=== PATIENT | male | born 1935 | race Caucasian/White ===

== ENCOUNTER 2016-06-30 11:20 | Inpatient (IN) | payer MEDICARE, BC ==
[2016-06-30] MEDS ORDERED: ALBUTEROL NEBULIZED 2.5 MG/3 ML INHALATION STA (12:54)
[2016-06-30] MEDS ORDERED: methylPREDNISolone SOD SUCCI 125 MG/2 ML VIAL IV STA (12:54)
--- NOTE | 2016-06-30 13:08 | ED ---
General Adult HPI - General Chief complaint: Shortness of Breath Stated complaint: COPD, MADONNA, SENT BY DR FRANKEL Time Seen by Provider: 06/30/16 12:20 Source: patient, RN notes reviewed Mode of arrival: wheelchair Limitations: no limitations - History of Present Illness Initial comments: This is an 81-year-old male who presents to the emergency department complaining of difficulty breathing getting worse over the last few days. 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 Patient denies any fever chills or cough. Patient states he does have some chest pain only when he takes a deep breath. Patient denies any swelling of legs patient denies any calf tenderness. Patient denies abdominal pain patient denies nausea vomiting or diarrhea. Patient denies headache patient denies numbness weakness. Patient denies any lightheadedness dizziness or near syncopal episode. Patient notes that he's got a wears oxygen 24 hours a day as opposed to just at night recently. - Related Data Home Medications Medication Instructions Recorded Confirmed Aspirin EC [Ecotrin Low Dose] 81 mg PO DAILY 06/30/16 06/30/16 Atorvastatin [Lipitor] 20 mg PO HS 06/30/16 06/30/16 Donepezil [Aricept] 10 mg PO HS 06/30/16 06/30/16 Doxycycline Hyclate 100 mg PO BID 06/30/16 06/30/16 Gabapentin 600 mg PO BID@0900,1600 06/30/16 06/30/16 Gabapentin 800 mg PO HS 06/30/16 06/30/16 HYDROcodone/APAP 10-325MG [[place] 1 tab PO Q6H PRN 06/30/16 06/30/16 10-325] Isosorbide Mononitrate ER [Imdur] 60 mg PO HS 06/30/16 06/30/16 LORazepam [Ativan] 0.5 mg PO BID PRN 06/30/16 06/30/16 Levothyroxine Sodium [Synthroid] 175 mcg PO DAILY 06/30/16 06/30/16 Omeprazole 20 mg PO BID 06/30/16 06/30/16 Ondansetron Odt [Zofran Odt] 4 mg PO QID PRN 06/30/16 06/30/16 Tamsulosin HCl [Flomax] 0.4 mg PO HS 06/30/16 06/30/16 predniSONE See Taper PO DAILY 06/30/16 06/30/16 rOPINIRole HCL [Requip] 0.5 mg PO HS 06/30/16 06/30/16 traZODone HCL 150 mg PO HS 06/30/16 06/30/16 Allergies Allergy/AdvReac Type Severity Reaction Status Date / Time iodine Allergy Itching Verified 06/30/16 11:50 Penicillins Allergy Rash/Hives Verified 06/30/16 11:50 Review of Systems ROS Statement: Those systems with pertinent positive or pertinent negative responses have been documented in the HPI. ROS Other: All systems not noted in ROS Statement are negative. Past Medical History Past Medical History: COPD, Hyperlipidemia, Hypertension, Thyroid Disorder Additional Past Medical History / Comment(s): pain History of Any Multi-Drug Resistant Organisms: None Reported Past Surgical History: Orthopedic Surgery Additional Past Surgical History / Comment(s): fingers, feet Past Psychological History: No Psychological Hx Reported Smoking Status: Former smoker Past Alcohol Use History: None Reported Past Drug Use History: None Reported General Exam - General Exam Comments Initial Comments: GENERAL: Patient is well-developed and well-nourished. Patient is nontoxic and well- hydrated and is in moderate distress. ENT: Neck is soft and supple. No significant lymphadenopathy is noted. Oropharynx is clear. Moist mucous membranes. Neck has full range of motion without eliciting any pain. EYES: The sclera were anicteric and conjunctiva were pink and moist. Extraocular movements were intact and pupils were equal round and reactive to light. Eyelids were unremarkable. PULMONARY: Unlabored respirations. Good breath sounds bilaterally. No audible rales rhonchi or wheezing was noted. CARDIOVASCULAR: There is a regular rate and rhythm without any murmurs gallops or rubs. ABDOMEN: Soft and nontender with normal bowel sounds. No palpable organomegaly was noted. There is no palpable pulsatile mass. SKIN: Skin is clear with no lesions or rashes and otherwise unremarkable. NEUROLOGIC: Patient is alert and oriented x3. Cranial nerves II through XII are grossly intact. Motor and sensory are also intact. Normal speech, volume and content. Symmetrical smile. MUSCULOSKELETAL: Normal extremities with adequate strength and full range of motion. LYMPHATICS: No significant lymphadenopathy is noted PSYCHIATRIC: Normal psychiatric evaluation. Normal interpersonal interactions appears functionally intact in deals appropriately with others. No signs of depression. No signs of anxiety. Limitations: no limitations Course Vital Signs 06/30/16 06/30/16 06/30/16 11:44 12:52 13:09 Temperature 97.9 F Pulse Rate 75 57 L 69 Respiratory 18 24 Rate Blood Pressure 118/79 153/78 O2 Sat by Pulse 94 L 95 Oximetry 06/30/16 06/30/16 06/30/16 13:19 13:26 15:21 Temperature 98.3 F Pulse Rate 62 69 106 H Respiratory 18 15 Rate Blood Pressure 134/74 116/66 O2 Sat by Pulse 98 95 Oximetry Medical Decision Making - Medical Decision Making EKG shows sinus bradycardia with occasional PAC at 59 bpm AL interval is 154 QRS is 82 QT intervals 4:30 QTC is 425. Patient's EKG shows no ST segment elevation or depression or T wave abnormalities are noted. Patient received 3 consecutive breathing treatments as to the patient after he was improved but he still was wheezing quite a bit and he stated he was not back to his baseline I spoke with Dr. Figueredo admitted the patient wrote admitting orders I consult did Dr. Diaz - Lab Data Result diagrams: 06/30/16 13:18 06/30/16 13:18 Lab Results 06/30/16 06/30/16 06/30/16 Range/Units 13:18 13:18 13:18 WBC 7.4 (3.8-10.6) k/uL RBC 4.36 (4.30-5.90) m/uL Hgb 14.5 (13.0-17.5) gm/dL Hct 42.5 (39.0-53.0) % MCV 97.4 (80.0-100.0) fL MCH 33.3 (25.0-35.0) pg MCHC 34.2 (31.0-37.0) g/dL RDW 13.9 (11.5-15.5) % Plt Count 151 (150-450) k/uL Neutrophils % 50 % Lymphocytes % 37 % Monocytes % 6 % Eosinophils % 3 % Basophils % 1 % Neutrophils # 3.7 (1.3-7.7) k/uL Lymphocytes # 2.8 (1.0-4.8) k/uL Monocytes # 0.5 (0-1.0) k/uL Eosinophils # 0.2 (0-0.7) k/uL Basophils # 0.1 (0-0.2) k/uL PT (9.0-12.0) sec INR (<1.1) APTT (22.0-30.0) sec Sodium 141 (137-145) mmol/L Potassium 3.8 (3.5-5.1) mmol/L Chloride 104 (98-107) mmol/L Carbon Dioxide 26 (22-30) mmol/L Anion Gap 11 mmol/L BUN 18 (9-20) mg/dL Creatinine 1.13 (0.66-1.25) mg/dL Est GFR (MDRD) Af Amer >60 (>60 ml/min/1.73 sqM) Est GFR (MDRD) Non-Af >60 (>60 ml/min/1.73 sqM) Glucose 86 (74-99) mg/dL Calcium 9.5 (8.4-10.2) mg/dL Total Bilirubin 0.5 (0.2-1.3) mg/dL AST 18 (17-59) U/L ALT 34 (21-72) U/L Alkaline Phosphatase 60 (38-126) U/L Total Creatine Kinase 66 (55-170) U/L CK-MB (CK-2) 1.4 (0.0-2.4) ng/mL CK-MB (CK-2) Rel Index 2.1 Troponin I <0.012 (0.000-0.034) ng/mL Total Protein 6.3 (6.3-8.2) g/dL Albumin 3.7 (3.5-5.0) g/dL 06/30/16 Range/Units 13:18 WBC (3.8-10.6) k/uL RBC (4.30-5.90) m/uL Hgb (13.0-17.5) gm/dL Hct (39.0-53.0) % MCV (80.0-100.0) fL MCH (25.0-35.0) pg MCHC (31.0-37.0) g/dL RDW (11.5-15.5) % Plt Count (150-450) k/uL Neutrophils % % Lymphocytes % % Monocytes % % Eosinophils % % Basophils % % Neutrophils # (1.3-7.7) k/uL Lymphocytes # (1.0-4.8) k/uL Monocytes # (0-1.0) k/uL Eosinophils # (0-0.7) k/uL Basophils # (0-0.2) k/uL PT 10.0 (9.0-12.0) sec INR 1.0 (<1.1) APTT 25.7 (22.0-30.0) sec Sodium (137-145) mmol/L Potassium (3.5-5.1) mmol/L Chloride (98-107) mmol/L Carbon Dioxide (22-30) mmol/L Anion Gap mmol/L BUN (9-20) mg/dL Creatinine (0.66-1.25) mg/dL Est GFR (MDRD) Af Amer (>60 ml/min/1.73 sqM) Est GFR (MDRD) Non-Af (>60 ml/min/1.73 sqM) Glucose (74-99) mg/dL Calcium (8.4-10.2) mg/dL Total Bilirubin (0.2-1.3) mg/dL AST (17-59) U/L ALT (21-72) U/L Alkaline Phosphatase (38-126) U/L Total Creatine Kinase (55-170) U/L CK-MB (CK-2) (0.0-2.4) ng/mL CK-MB (CK-2) Rel Index Troponin I (0.000-0.034) ng/mL Total Protein (6.3-8.2) g/dL Albumin (3.5-5.0) g/dL Critical Care Time Critical Care Time: Yes Total Critical Care Time: 35 Disposition Clinical Impression: Acute exacerbation of chronic obstructive airways disease Disposition: ADMITTED IP TO THIS HOSP Referrals: Noble Elkins MD [Primary Care Provider] - 1-2 days Time of Disposition: 13:48
[2016-06-30 13:43] LABS: Basophils # (A) 0.1 k/uL (0-0.2); Basophils % (A) 1 %; CH 33.8; CHCM 34.8; Eosinophils # (A) 0.2 k/uL (0-0.7); Eosinophils % (A) 3 %; HCT 42.5 % (39.0-53.0); HDW 2.88; HGB 14.5 gm/dL (13.0-17.5); Luc # (Auto) 0.24; Luc % (Auto) 3; Lymphocytes # (A) 2.8 k/uL (1.0-4.8); Lymphocytes % (A) 37 %; MCH 33.3 pg (25.0-35.0); MCHC 34.2 g/dL (31.0-37.0); MCV 97.4 fL (80.0-100.0); Mean Platelet Volume 7.7; Monocytes # (A) 0.5 k/uL (0-1.0); Monocytes % (A) 6 %; Neutrophils # (A) 3.7 k/uL (1.3-7.7); Neutrophils % (A) 50 %; RBC 4.36 m/uL (4.30-5.90); RDW 13.9 % (11.5-15.5); WBC 7.4 k/uL (3.8-10.6); WBC (Perox) 7.36
[2016-06-30 13:49] LABS: ALT 34 U/L (21-72); AST 18 U/L (17-59); Alkaline Phosphatase 60 U/L (38-126); Anion Gap 11 mmol/L; Blood Urea Nitrogen 18 mg/dL (9-20); Calcium 9.5 mg/dL (8.4-10.2); Carbon Dioxide 26 mmol/L (22-30); Chloride 104 mmol/L (98-107); Glucose 86 mg/dL (74-99); Non-African American GFR(MDRD) >60 (>60 ml/min/1.73 sqM); Potassium 3.8 mmol/L (3.5-5.1); Sodium 141 mmol/L (137-145); Total Bilirubin 0.5 mg/dL (0.2-1.3); Total Protein 6.3 g/dL (6.3-8.2)
[2016-06-30 13:50] LABS: Partial Thromboplastin Time 25.7 sec (22.0-30.0)
[2016-06-30 14:08] LABS: Creatine Kinase 66 U/L (55-170)
[2016-06-30 14:18] LABS: Creatine Kinase MB 1.4 ng/mL (0.0-2.4); Troponin I <0.012 ng/mL (0.000-0.034)
--- NOTE | 2016-06-30 15:21 | XR ---
EXAMINATION TYPE: XR chest 2V DATE OF EXAM: 06/30/2016 3:13 PM COMPARISON: Prior chest x-ray 15 Aug 2009 HISTORY: Difficulty breathing, cough TECHNIQUE: Frontal and lateral views of the chest are obtained. FINDINGS: There is no focal air space opacity, pleural effusion, or pneumothorax seen. The cardiac silhouette size is within normal limits. There are overlying cardiac leads. Increased AP diameter o f the chest may be indicative of underlying COPD. The osseous structures are intact. IMPRESSION: No acute cardiopulmonary process.
[2016-06-30] MEDS ORDERED: IPRATROPIUM-ALBUTEROL 3 ML NEB INHALATION PRN (15:37)
[2016-06-30] MEDS ORDERED: KETOROLAC 30 MG/ML 1 ML VIAL IVP STA (15:43)
[2016-06-30] MEDS ORDERED: ONDANSETRON ODT 4 MG TAB PO PRN (17:10)
[2016-06-30 17:22] LABS: Glucose,Whole Blood 135 mg/dL (75-99)
[2016-06-30] MEDS: GABAPENTIN 300 MG CAP PO SCH (18:13)
[2016-06-30] MEDS: HYDROcodone/APAP 10-325MG 1 EACH TAB PO PRN (18:14)
[2016-06-30] MEDS: ASPIRIN 81 MG CHEW PO SCH (18:15)
[2016-06-30] MEDS: LORazepam 0.5 MG TAB PO PRN (18:15)
[2016-06-30] MEDS: INSULIN LISPRO (humaLOG) 300 UNIT/3 ML VIAL SQ SCH ×2 (18:16→21:46)
[2016-06-30] MEDS: methylPREDNISolone SOD SUCCI 125 MG/2 ML VIAL IV SCH ×2 (18:25→23:29)
[2016-06-30] MEDS: IPRATROPIUM-ALBUTEROL 3 ML NEB INHALATION SCH ×2 (20:54→23:58)
[2016-06-30 21:09] LABS: Glucose,Whole Blood 174 mg/dL (75-99)
[2016-06-30] MEDS: ATORVASTATIN 20 MG TAB PO SCH (21:44)
[2016-06-30] MEDS: ENOXAPARIN 40 MG/0.4 ML SYRINGE SQ SCH (21:44)
[2016-06-30] MEDS: DOXYCYCLINE 50 MG CAP PO SCH (21:45)
[2016-06-30] MEDS: GABAPENTIN 400 MG CAP PO SCH (21:45)
[2016-06-30] MEDS: DONEPEZIL 10 MG TAB PO SCH (21:45)
[2016-06-30] MEDS: guaiFENesin 600 MG TABLET.ER PO SCH (21:45)
[2016-06-30] MEDS: ISOSORBIDE MONONITRATE ER 60 MG TAB.ER.24H PO SCH (21:46)
[2016-06-30] MEDS: TAMSULOSIN 0.4 MG CAP.ER.24H PO SCH (21:47)
[2016-06-30] MEDS: traZODone HCL 50 MG TAB PO SCH (21:47)
[2016-06-30 22:04] LABS: Hemoglobin A1C 5.7 % (4.2-6.1)
[2016-07-01] MEDS: LORazepam 0.5 MG TAB PO PRN (02:05)
[2016-07-01] MEDS: IPRATROPIUM-ALBUTEROL 3 ML NEB INHALATION SCH ×5 (03:55→19:57)
[2016-07-01] MEDS: LEVOTHYROXINE 75 MCG TAB PO SCH (06:12)
[2016-07-01] MEDS: methylPREDNISolone SOD SUCCI 125 MG/2 ML VIAL IV SCH ×2 (06:12→12:17)
[2016-07-01] MEDS: LEVOTHYROXINE 100 MCG TAB PO SCH (06:13)
[2016-07-01 07:16] LABS: Glucose,Whole Blood 140 mg/dL (75-99)
[2016-07-01] MEDS: BUDESONIDE 1 MG/2 ML NEBU INHALATION SCH ×2 (08:05→19:57)
[2016-07-01] MEDS: INSULIN LISPRO (humaLOG) 300 UNIT/3 ML VIAL SQ SCH ×4 (08:11→21:19)
[2016-07-01] MEDS: PANTOPRAZOLE 40 MG TABLET PO SCH (08:12)
[2016-07-01] MEDS: guaiFENesin 600 MG TABLET.ER PO SCH (08:12)
[2016-07-01] MEDS: ASPIRIN 81 MG CHEW PO SCH (08:13)
[2016-07-01] MEDS: GABAPENTIN 300 MG CAP PO SCH ×2 (08:13→15:42)
[2016-07-01] MEDS: DOXYCYCLINE 50 MG CAP PO SCH ×2 (08:14→21:54)
--- NOTE | 2016-07-01 08:17 | HP ---
DATE OF ADMISSION: 06/30/2016 PRESENTING COMPLAINT: Short of breath, wheezing. HISTORY OF PRESENTING COMPLAINT: Very pleasant 81-year-old patient of Dr. Elkins and astronaut mission specialist Dr. Diaz. The patient has a long-standing history of COPD and other chronic stable conditions include GERD, hypertension, hyperlipidemia and hypothyroid. Patient is on home oxygen 2 liters and diverticulosis Patient has had a few admissions in the hospital. Patient presented with worsening short of breath, wheezing and chest tightness. Some cough. The patient has been on steroids off-and-on with fair appetite. Just feels tired, run down. REVIEW OF SYSTEMS: CONSTITUTIONAL: Tired. HEENT: None. RESPIRATORY: As above. CARDIOVASCULAR: None. GASTROINTESTINAL: None. GENITOURINARY: None. MUSCULOSKELETAL: Some pain in the joints. Dermatological: None. HEMATOLOGICAL: None. LYMPHATIC: None. PSYCHIATRY: Forgetful. NEUROLOGICAL: None. PAST MEDICAL HISTORY: COPD, GERD, hyperlipidemia, hypertension, benign prostatic hypertrophy, rheumatoid arthritis, hypothyroid, right eye injury with loss of vision for 30 years and then with lens replacement, the patient could see better, shingles 4 to 5 years ago, home oxygen 2 liters, migraines, diverticulosis. PAST SURGICAL HISTORY: Cardiac cath, orthopedic surgery, right eye lens implant. Colonoscopy with polypectomy, bilateral foot surgery, bilateral rotator cuff repair. SOCIAL HISTORY: Lives with his daughter, uses a walker when up, does drive also, patient smoked for about 10 years; stopped in 1962. Alcohol occasionally. Family history of cirrhosis. HOME MEDICATIONS: 1. Aspirin 81 mg a day. 2. Trazodone 150 mg p.o. q.h.s. 3. Requip 0.5 mg q.h.s. 4. Prednisone taper. 5. Flomax 0.4 mg q.h.s. 6. Zofran p.r.n. 7. Omeprazole 20 mg p.o. b.i.d. 8. Synthroid 175 mcg p.o. daily. 9. Ativan 0.5 mg p.o. b.i.d. p.r.n. 10. Imdur ER 50 mg p.o. q.h.s. 11. [place] 10 1 tablets p.o. q.6 p.r.n. 12. Neurontin 800 mg q.h.s. 600 mg p.o. b.i.d. 13. Doxycycline 100 mg p.o. b.i.d. 14. Aricept 10 mg p.o. q.h.s. 15. Lipitor 20 mg p.o. q.h.s. ALLERGIES TO IODINE AND PENICILLIN. On examination, temperature on presentation: Temperature 97.9, pulse 75, respiration 18, blood pressure 108/79, pulse ox 94% on room air. GENERAL APPEARANCE: Well built, BMI of 32.4, lying in bed, tired -appearing. EYES: Pupils equal. Conjunctivae normal. HEENT: External appearance of nose and ears normal. Oral cavity normal. NECK: JVD not raised. Mass not palpable. RESPIRATORY: Effort increased. LUNGS: Diminished breath sounds. Prolonged expiration and expiratory crackles and wheezing. CARDIOVASCULAR: First and second sounds normal. No edema. ABDOMEN: Soft, nontender. Liver and spleen not palpable. LYMPHATICS: No lymph nodes palpable in the neck and axilla. PSYCHIATRY: Alert and oriented x3. Mood and affect normal. NEUROLOGICAL: Pupils equal. Cranial nerves grossly intact. Power and sensation grossly intact. INVESTIGATIONS: White count 7.4, hemoglobin 14.5, potassium 3.8. EKG: Sinus rhythm. Chest x-ray reviewed by me shows some elevation of the right diaphragm. No obvious infiltrates. ASSESSMENT: 1. Acute severe chronic obstructive pulmonary disease exacerbation. 2. Gastroesophageal reflux disease. 3. Hyperlipidemia. 4. Essential hypertension. 5. Benign prostatic hypertrophy. 6. Chronic rheumatoid arthritis. 7. Hypothyroidism. 8. Chronic hypoxic respiratory failure secondary on 2 L oxygen at home. 9. Chronic diverticulosis. 10. Alzheimer's dementia, late onset type. 11. Chronic restless leg syndrome. PLAN: Patient is put on Solu-Medrol, nebulized bronchodilators every 4 hours. We will add some Mucinex for the patient to expectorate and also add nebulized and humidify the oxygen. Dr. Diaz will be consulted. Care was discussed with the patient. Questions were answered. Copy to Dr. Elkins.
[2016-07-01] MEDS: ENOXAPARIN 40 MG/0.4 ML SYRINGE SQ SCH (08:58)
[2016-07-01 12:15] LABS: Glucose,Whole Blood 178 mg/dL (75-99)
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
[2016-07-01] MEDS: LORazepam 0.5 MG TAB PO SCH ×2 (15:56→21:24)
[2016-07-01 17:04] LABS: Glucose,Whole Blood 125 mg/dL (75-99)
[2016-07-01] MEDS: methylPREDNISolone SOD SUCCI 40 MG/ML 1 ML VIAL IV SCH ×2 (19:01→23:33)
[2016-07-01 21:06] LABS: Glucose,Whole Blood 153 mg/dL (75-99)
[2016-07-01] MEDS: DONEPEZIL 10 MG TAB PO SCH (21:54)
[2016-07-01] MEDS: GABAPENTIN 400 MG CAP PO SCH (21:54)
[2016-07-01] MEDS: ATORVASTATIN 20 MG TAB PO SCH (21:54)
[2016-07-01] MEDS: traZODone HCL 50 MG TAB PO SCH (21:55)
[2016-07-01] MEDS: ISOSORBIDE MONONITRATE ER 60 MG TAB.ER.24H PO SCH (21:55)
[2016-07-01] MEDS: TAMSULOSIN 0.4 MG CAP.ER.24H PO SCH (21:55)
--- NOTE | 2016-07-01 22:56 | PN ---
DATE OF SERVICE: 07/01/2016 PRESENTING COMPLAINT: Shortness of breath and wheezing. INTERVAL HISTORY: This patient with advanced chronic obstructive pulmonary disease presented yet again with exacerbation, some tracheobronchitis. Patient had a bit of coughing bout, short of breath. Not able to expectorate much. Did tolerate some diet. Sitting on the bed. Tired. Review of systems done for constitutional, cardiovascular, GI, pulmonary; relevant findings as above. Current medications include nebulized bronchodilators, steroids, Vibramycin. On examination, temperature 99.1, pulse 54, respirations 18, blood pressure 122/90, pulse ox 92% on 2 liters. GENERAL APPEARANCE: Sitting up in bed. Tired -appearing. Eyes pupils equal. Conjunctivae normal. NECK: JVD not raised. Mass not palpable. Respiratory effort increased. Lungs decreased breath sounds, prolonged expiration and wheezing. CARDIOVASCULAR: First and second sounds normal. No edema. ABDOMEN: Soft, nontender. Liver and spleen not palpable. PSYCHIATRY: Alert and oriented x3 motor normal. INVESTIGATIONS: Accu-Cheks are noted. ASSESSMENT: 1. Acute advancing chronic obstructive pulmonary disease exacerbation from acute tracheobronchitis. 2. Gastroesophageal reflux disease. 3. Hyperlipidemia. 4. Essential hypertension. 5. Benign prostatic hypertrophy. 6. Chronic rheumatoid arthritis. 7. Hypothyroidism. 8. Chronic hypoxic respiratory failure secondary to 2 L oxygen at home. 9. Chronic diverticulosis. 10. Alzheimer's dementia, late onset type. 11. Chronic restless leg syndrome. 12. Acute severe chronic obstructive pulmonary disease exacerbation, slow to respond. PLAN: Care was discussed with the patient. We will stop the Mucinex as the patient is pretty dried up otherwise. Continue current medication and treatment plan. Follow with pulmonary.
[2016-07-02] MEDS: HYDROcodone/APAP 10-325MG 1 EACH TAB PO PRN (00:10)
[2016-07-02] MEDS: IPRATROPIUM-ALBUTEROL 3 ML NEB INHALATION SCH ×7 (00:44→23:47)
[2016-07-02] MEDS: LEVOTHYROXINE 75 MCG TAB PO SCH (06:32)
[2016-07-02] MEDS: LEVOTHYROXINE 100 MCG TAB PO SCH (06:32)
[2016-07-02 07:34] LABS: Glucose,Whole Blood 144 mg/dL (75-99)
[2016-07-02] MEDS: BUDESONIDE 1 MG/2 ML NEBU INHALATION SCH ×2 (08:16→19:50)
[2016-07-02] MEDS: methylPREDNISolone SOD SUCCI 40 MG/ML 1 ML VIAL IV SCH ×3 (09:13→23:46)
[2016-07-02] MEDS: ASPIRIN 81 MG CHEW PO SCH (09:14)
[2016-07-02] MEDS: ENOXAPARIN 40 MG/0.4 ML SYRINGE SQ SCH (09:14)
[2016-07-02] MEDS: PANTOPRAZOLE 40 MG TABLET PO SCH (09:14)
[2016-07-02] MEDS: GABAPENTIN 300 MG CAP PO SCH ×2 (09:14→17:16)
[2016-07-02] MEDS: DOXYCYCLINE 50 MG CAP PO SCH ×2 (09:15→21:08)
[2016-07-02] MEDS: INSULIN LISPRO (humaLOG) 300 UNIT/3 ML VIAL SQ SCH ×4 (09:15→21:23)
[2016-07-02] MEDS: LORazepam 0.5 MG TAB PO SCH ×4 (09:15→21:09)
[2016-07-02] MEDS: LORATADINE-PSEUDOEPH 5-120 MG 1 EACH TAB.ER.12H PO SCH ×2 (10:31→21:09)
[2016-07-02 12:12] LABS: Glucose,Whole Blood 116 mg/dL (75-99)
--- NOTE | 2016-07-02 14:22 | P.PN ---
Subjective This is a very pleasant 81-year-old gentleman who follows with Dr. Elkins as his primary care physician. He has a history of hypertension and hypothyroidism hyperlipidemia. He also has a remote history of smoking. 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 Diaz in our office for the same. He states approximate 5 weeks ago he had a bad flu bug with significant vomiting and diarrhea. Since that time he has not felt back to his normal. He has been treated in the outpatient setting for COPD exacerbation without significant improvement. He was seen again yesterday in our office by Dr. Pepe who referred the patient to be admitted here for the same. He is seen today in consultation on the regular medical floor. He is awake and alert in no acute distress. He is dyspneic with minimal exertion. He has a loose nonproductive cough. No fever, positive night sweats. No further nausea vomiting or diarrhea. His chest x-ray does not reveal any acute pulmonary process. He's been afebrile. No leukocytosis. Maintaining good O2 saturations in the 90s on 2 L/m per nasal cannula. He's been hemodynamically stable. He is seen again today 07/02/2016 in follow-up on the regular medical floor. He is awake and alert in no acute distress. He states he is breathing easier today as compared to yesterday. He is maintaining good O2 saturations in the low 90s on 2 L/m per nasal cannula. His been afebrile. Objective - Vital Signs Vital signs: Vital Signs Temp 97.6 F 07/02/16 07:00 Pulse 84 07/02/16 11:34 Resp 18 07/02/16 07:00 BP 112/68 07/02/16 07:00 Pulse Ox 93 L 07/02/16 07:00 Intake & Output 07/01/16 07/02/16 07/02/16 18:59 06:59 18:59 Intake Total 1200 Output Total 350 Balance -350 1200 Weight 96.615 kg Intake: Oral 1200 Output: Urine 350 Other: Voiding Method Urinal Toilet # Voids 1 1 3 - Exam GENERAL EXAM: Obese. Alert, comfortable in no apparent distress. HEAD: Normocephalic. EYES: Normal reaction of pupils, equal size. NOSE: Clear with pink turbinates. THROAT: No erythema or exudates. NECK: No masses, no JVD. CHEST: No chest wall deformity. LUNGS: Equal air entry with bilateral end expiratory wheeze, few scattered rhonchi, diminished. CVS: S1 and S2 normal with no audible murmurs, regular rhythm. ABDOMEN: No hepatosplenomegaly, normal bowel sounds, no guarding or rigidity. SPINE: No scoliosis or deformity SKIN: No rashes CENTRAL NERVOUS SYSTEM: No focal deficits, tone is normal in all 4 extremities. Extremities: There is no significant peripheral edema. No clubbing, no cyanosis. Peripheral pulses are intac - Labs CBC & Chem 7: 06/30/16 13:18 06/30/16 13:18 Labs: Abnormal Lab Results - Last 24 Hours (Table) 07/01/16 07/01/16 07/02/16 Range/Units 17:00 21:00 07:16 POC Glucose (mg/dL) 125 H 153 H 144 H (75-99) mg/dL 07/02/16 Range/Units 12:10 POC Glucose (mg/dL) 116 H (75-99) mg/dL Assessment and Plan Plan: Impression: #1 Acute exacerbation of severe oxygen dependent chronic obstructive pulmonary disease, complicated by tracheobronchitis. #2 Hypertension. #3 Hyperlipidemia. #4 Hypothyroidism. #5 Rheumatoid arthritis. #6 Benign prostatic hypertrophy. #6 History of shingles. Plan: The patient was seen and evaluated by Dr. Diaz. No need for bronchoscopy with BAL at this point. He is improving daily. His chest x-ray revealed no acute pulmonary process. We'll continue with his current pulmonary medications. We will increase his activity as tolerated. We'll continue to follow.
[2016-07-02 17:12] LABS: Glucose,Whole Blood 131 mg/dL (75-99)
[2016-07-02] MEDS: GABAPENTIN 400 MG CAP PO SCH (21:08)
[2016-07-02] MEDS: ATORVASTATIN 20 MG TAB PO SCH (21:08)
[2016-07-02] MEDS: DONEPEZIL 10 MG TAB PO SCH (21:08)
[2016-07-02] MEDS: ISOSORBIDE MONONITRATE ER 60 MG TAB.ER.24H PO SCH (21:09)
[2016-07-02] MEDS: traZODone HCL 50 MG TAB PO SCH (21:10)
[2016-07-02] MEDS: TAMSULOSIN 0.4 MG CAP.ER.24H PO SCH (21:10)
[2016-07-02 21:32] LABS: Glucose,Whole Blood 151 mg/dL (75-99)
[2016-07-03] MEDS: IPRATROPIUM-ALBUTEROL 3 ML NEB INHALATION SCH ×6 (04:07→23:23)
[2016-07-03] MEDS: LEVOTHYROXINE 75 MCG TAB PO SCH (06:07)
[2016-07-03] MEDS: LEVOTHYROXINE 100 MCG TAB PO SCH (06:07)
[2016-07-03 07:18] LABS: Glucose,Whole Blood 153 mg/dL (75-99)
[2016-07-03] MEDS: BUDESONIDE 1 MG/2 ML NEBU INHALATION SCH ×2 (07:18→19:14)
[2016-07-03] MEDS: HYDROcodone/APAP 10-325MG 1 EACH TAB PO PRN ×2 (07:21→21:41)
[2016-07-03] MEDS: INSULIN LISPRO (humaLOG) 300 UNIT/3 ML VIAL SQ SCH ×4 (07:22→20:56)
[2016-07-03] MEDS: PANTOPRAZOLE 40 MG TABLET PO SCH (07:22)
[2016-07-03] MEDS: methylPREDNISolone SOD SUCCI 40 MG/ML 1 ML VIAL IV SCH ×2 (07:22→15:14)
[2016-07-03] MEDS: ASPIRIN 81 MG CHEW PO SCH (07:23)
[2016-07-03] MEDS: DOXYCYCLINE 50 MG CAP PO SCH ×2 (07:23→20:52)
[2016-07-03] MEDS: GABAPENTIN 300 MG CAP PO SCH ×2 (07:23→15:14)
[2016-07-03] MEDS: ENOXAPARIN 40 MG/0.4 ML SYRINGE SQ SCH (07:23)
[2016-07-03] MEDS: LORATADINE-PSEUDOEPH 5-120 MG 1 EACH TAB.ER.12H PO SCH ×2 (07:24→20:52)
[2016-07-03] MEDS: LORazepam 0.5 MG TAB PO SCH ×4 (07:25→21:41)
--- NOTE | 2016-07-03 08:33 | PN ---
DATE OF SERVICE: 07/02/2016 PRESENTING COMPLAINT: Short of breath, wheezing. INTERVAL HISTORY: This is a patient admitted with advanced COPD exacerbation and some tracheobronchitis. Coughing is better after he stopped the Mucinex. Patient really stuffy in the nose. Tired. Less wheezing. Review of systems done for constitutional, cardiovascular, GI, pulmonary; relevant findings as above. Current medications show IV Solu-Medrol, nebulized bronchodilators. On examination, temperature 97.6, pulse 86, respiration 18, blood pressure 112/68, pulse ox 93% on room air. GENERAL APPEARANCE: Sitting up, tired appearing. HEENT: Conjunctivae normal. NECK: JVD not raised. RESPIRATORY: Decreased breath sounds. Prolonged expiration and wheezing. CARDIOVASCULAR: First and second sounds normal. No edema. ABDOMEN: Soft, nontender. Liver and spleen not palpable. PSYCHIATRY: Alert and oriented x3. Mood and affect anxious appearing. INVESTIGATIONS: Accu-Cheks are noted ASSESSMENT: 1. Acute advanced chronic obstructive pulmonary disease exacerbation, primary acute tracheobronchitis, slow to respond. 2. Gastroesophageal reflux disease. 3. Hyperlipidemia. 4. Essential hypertension. 5. Benign prostatic hypertrophy. 6. Chronic rheumatoid arthritis. 7. Hypothyroidism. 8. Chronic hypoxic respiratory failure on 2 liters oxygen at home from underlying chronic obstructive pulmonary disease. 9. Chronic diverticulosis. 10. Alzheimer's dementia, late onset type. 11. Chronic restless leg syndrome. PLAN: Continue the patient IV steroids, nebulized bronchodilators. Will add Claritin D 1 twice a day. Care was discussed with patient.
[2016-07-03 11:43] LABS: Glucose,Whole Blood 129 mg/dL (75-99)
--- NOTE | 2016-07-03 12:25 | P.PN ---
Subjective This is a very pleasant 81-year-old gentleman who follows with Dr. Elkins as his primary care physician. He has a history of hypertension and hypothyroidism hyperlipidemia. He also has a remote history of smoking. 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 Diaz in our office for the same. He states approximate 5 weeks ago he had a bad flu bug with significant vomiting and diarrhea. Since that time he has not felt back to his normal. He has been treated in the outpatient setting for COPD exacerbation without significant improvement. He was seen again yesterday in our office by Dr. Pepe who referred the patient to be admitted here for the same. He is seen today in consultation on the regular medical floor. He is awake and alert in no acute distress. He is dyspneic with minimal exertion. He has a loose nonproductive cough. No fever, positive night sweats. No further nausea vomiting or diarrhea. His chest x-ray does not reveal any acute pulmonary process. He's been afebrile. No leukocytosis. Maintaining good O2 saturations in the 90s on 2 L/m per nasal cannula. He's been hemodynamically stable. He is seen again today 07/02/2016 in follow-up on the regular medical floor. He is awake and alert in no acute distress. He states he is breathing easier today as compared to yesterday. He is maintaining good O2 saturations in the low 90s on 2 L/m per nasal cannula. His been afebrile. The patient is seen again today 07/03/2016 in follow-up. He is awake and alert in no acute distress. He does have ongoing issues with dyspnea on minimal exertion. He has a loose nonproductive cough. Still feelings of unable to clear and expectorate his sputum. he continues to maintain good O2 saturations in the mid 90s on 2 L/m per nasal cannula. Objective - Vital Signs Vital signs: Vital Signs Temp 97.0 F L 07/03/16 07:00 Pulse 88 07/03/16 11:22 Resp 18 07/03/16 07:00 BP 108/77 07/03/16 07:00 Pulse Ox 94 L 07/03/16 07:21 Intake & Output 07/02/16 07/03/16 07/03/16 18:59 06:59 18:59 Intake Total 1200 300 Balance 1200 300 Intake: Oral 1200 300 Other: Voiding Method Toilet # Voids 3 1 - Exam GENERAL EXAM: Obese. Alert, comfortable in no apparent distress. HEAD: Normocephalic. EYES: Normal reaction of pupils, equal size. NOSE: Clear with pink turbinates. THROAT: No erythema or exudates. NECK: No masses, no JVD. CHEST: No chest wall deformity. LUNGS: Equal air entry with bilateral end expiratory wheeze, few scattered rhonchi, diminished. CVS: S1 and S2 normal with no audible murmurs, regular rhythm. ABDOMEN: No hepatosplenomegaly, normal bowel sounds, no guarding or rigidity. SPINE: No scoliosis or deformity SKIN: No rashes CENTRAL NERVOUS SYSTEM: No focal deficits, tone is normal in all 4 extremities. Extremities: There is no significant peripheral edema. No clubbing, no cyanosis. Peripheral pulses are intac - Labs CBC & Chem 7: 06/30/16 13:18 06/30/16 13:18 Labs: Abnormal Lab Results - Last 24 Hours (Table) 07/02/16 07/02/16 07/03/16 Range/Units 17:08 21:19 07:16 POC Glucose (mg/dL) 131 H 151 H 153 H (75-99) mg/dL 07/03/16 Range/Units 11:41 POC Glucose (mg/dL) 129 H (75-99) mg/dL Assessment and Plan Plan: Impression: #1 Acute exacerbation of severe oxygen dependent chronic obstructive pulmonary disease, complicated by tracheobronchitis. #2 Hypertension. #3 Hyperlipidemia. #4 Hypothyroidism. #5 Rheumatoid arthritis. #6 Benign prostatic hypertrophy. #6 History of shingles. Plan: The patient was seen and evaluated by Dr. Diaz. No need for bronchoscopy with BAL at this point. His chest x-ray revealed no acute pulmonary process. We'll continue with his current pulmonary medications. We will add Mucinex twice a day. We will increase his activity as tolerated. We'll continue to follow.
[2016-07-03 16:52] LABS: Glucose,Whole Blood 153 mg/dL (75-99)
--- NOTE | 2016-07-03 20:22 | PN ---
DATE OF SERVICE: 07/03/2016 Presenting complaint: Short of breath. INTERVAL HISTORY: This patient was admitted to the hospital with advanced COPD exacerbation and tracheobronchitis. Breathing somewhat better. Nasal stuffiness improved after starting Claritin-D. Did tolerate his diet. Review of systems done for constitutional, GI, pulmonary; relevant findings as above. Current medications are reviewed that include Solu-Medrol 40 q.8. On examination, temperature 98, pulse 72, respiratory rate 18, blood pressure 130/98, pulse ox 94% on 2 liters. GENERAL APPEARANCE: Sitting up, more comfortable. EYES: Pupils equal. Conjunctivae normal. NECK: JVD not raised. Mass not palpable. RESPIRATORY: Effort increased. LUNGS: Diminished breath sounds. Prolonged expiration. CARDIOVASCULAR: First and second sounds normal. No edema. ABDOMEN: Soft, nontender. Liver and spleen not palpable. PSYCHIATRY: Alert and oriented x3. Mood and affect less anxious. INVESTIGATIONS:
[2016-07-03] MEDS: ATORVASTATIN 20 MG TAB PO SCH (20:50)
[2016-07-03] MEDS: DOCUSATE 100 MG CAP PO SCH (20:50)
[2016-07-03] MEDS: GABAPENTIN 400 MG CAP PO SCH (20:51)
[2016-07-03] MEDS: traZODone HCL 50 MG TAB PO SCH (20:51)
[2016-07-03] MEDS: guaiFENesin 600 MG TABLET.ER PO SCH (20:52)
[2016-07-03] MEDS: DONEPEZIL 10 MG TAB PO SCH (20:52)
[2016-07-03] MEDS: TAMSULOSIN 0.4 MG CAP.ER.24H PO SCH (20:52)
[2016-07-03] MEDS: ISOSORBIDE MONONITRATE ER 60 MG TAB.ER.24H PO SCH (20:52)
[2016-07-03 21:07] LABS: Glucose,Whole Blood 108 mg/dL (75-99)
[2016-07-04] MEDS: IPRATROPIUM-ALBUTEROL 3 ML NEB INHALATION SCH ×5 (03:36→20:44)
[2016-07-04] MEDS: LEVOTHYROXINE 100 MCG TAB PO SCH (06:11)
[2016-07-04] MEDS: LEVOTHYROXINE 75 MCG TAB PO SCH (06:11)
[2016-07-04 07:29] LABS: Glucose,Whole Blood 99 mg/dL (75-99)
[2016-07-04] MEDS: INSULIN LISPRO (humaLOG) 300 UNIT/3 ML VIAL SQ SCH ×4 (07:33→21:22)
[2016-07-04] MEDS: LORazepam 0.5 MG TAB PO SCH ×4 (07:37→21:29)
[2016-07-04] MEDS: PANTOPRAZOLE 40 MG TABLET PO SCH (07:37)
[2016-07-04] MEDS: LORATADINE-PSEUDOEPH 5-120 MG 1 EACH TAB.ER.12H PO SCH ×2 (07:37→21:22)
[2016-07-04] MEDS: GABAPENTIN 300 MG CAP PO SCH ×2 (07:37→17:03)
[2016-07-04] MEDS: HYDROcodone/APAP 10-325MG 1 EACH TAB PO PRN (07:37)
[2016-07-04] MEDS: methylPREDNISolone SOD SUCCI 40 MG/ML 1 ML VIAL IV SCH ×2 (07:37→21:20)
[2016-07-04] MEDS: guaiFENesin 600 MG TABLET.ER PO SCH ×2 (07:37→21:22)
[2016-07-04] MEDS: ENOXAPARIN 40 MG/0.4 ML SYRINGE SQ SCH (07:37)
[2016-07-04] MEDS: DOXYCYCLINE 50 MG CAP PO SCH ×2 (07:37→21:21)
[2016-07-04] MEDS: ASPIRIN 81 MG CHEW PO SCH (07:37)
[2016-07-04] MEDS: BUDESONIDE 1 MG/2 ML NEBU INHALATION SCH ×2 (08:17→20:44)
[2016-07-04] MEDS ORDERED: ACETYLCYSTEINE 800 MG/4 ML VIAL INHALATION SCH (12:00)
[2016-07-04 12:01] LABS: Glucose,Whole Blood 114 mg/dL (75-99)
--- NOTE | 2016-07-04 13:06 | P.PN ---
Subjective Principal diagnosis: Acute exacerbation of COPD and tracheobronchitis This is a very pleasant 81-year-old gentleman who follows with Dr. Elkins as his primary care physician. He has a history of hypertension and hypothyroidism hyperlipidemia. He also has a remote history of smoking. 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 Diaz in our office for the same. He states approximate 5 weeks ago he had a bad flu bug with significant vomiting and diarrhea. Since that time he has not felt back to his normal. He has been treated in the outpatient setting for COPD exacerbation without significant improvement. He was seen again yesterday in our office by Dr. Pepe who referred the patient to be admitted here for the same. He is seen today in consultation on the regular medical floor. He is awake and alert in no acute distress. He is dyspneic with minimal exertion. He has a loose nonproductive cough. No fever, positive night sweats. No further nausea vomiting or diarrhea. His chest x-ray does not reveal any acute pulmonary process. He's been afebrile. No leukocytosis. Maintaining good O2 saturations in the 90s on 2 L/m per nasal cannula. He's been hemodynamically stable. He is seen again today 07/02/2016 in follow-up on the regular medical floor. He is awake and alert in no acute distress. He states he is breathing easier today as compared to yesterday. He is maintaining good O2 saturations in the low 90s on 2 L/m per nasal cannula. His been afebrile. The patient is seen again today 07/03/2016 in follow-up. He is awake and alert in no acute distress. He does have ongoing issues with dyspnea on minimal exertion. He has a loose nonproductive cough. Still feelings of unable to clear and expectorate his sputum. he continues to maintain good O2 saturations in the mid 90s on 2 L/m per nasal cannula. Reevaluated today on 07/04/2016, continues to have shortness of breath with any activity. Unable to clear his sputum, hence I recommended adding Mucinex and Mucomyst today. Hopefully this will help him expectorate easily, and we can work on getting the patient discharge home probably in the next 2 days. Otherwise he may have to be bronchoscoped. Objective - Vital Signs Vital signs: Vital Signs Temp 97.0 F L 07/04/16 07:00 Pulse 88 07/04/16 08:35 Resp 16 07/04/16 07:00 BP 118/81 07/04/16 07:00 Pulse Ox 95 07/04/16 07:00 Intake & Output 07/03/16 07/04/16 07/04/16 18:59 06:59 18:59 Intake Total 300 Balance 300 Intake: Oral 300 Other: Voiding Method Toilet Toilet Toilet # Voids 2 1 - Exam GENERAL EXAM: Obese. Alert, comfortable in no apparent distress. HEAD: Normocephalic. EYES: Normal reaction of pupils, equal size. NOSE: Clear with pink turbinates. THROAT: No erythema or exudates. NECK: No masses, no JVD. CHEST: No chest wall deformity. LUNGS: Equal air entry with bilateral end expiratory wheeze, few scattered rhonchi, diminished. CVS: S1 and S2 normal with no audible murmurs, regular rhythm. ABDOMEN: No hepatosplenomegaly, normal bowel sounds, no guarding or rigidity. SPINE: No scoliosis or deformity SKIN: No rashes CENTRAL NERVOUS SYSTEM: No focal deficits, tone is normal in all 4 extremities. Extremities: There is no significant peripheral edema. No clubbing, no cyanosis. Peripheral pulses are intac - Labs CBC & Chem 7: 06/30/16 13:18 06/30/16 13:18 Labs: Abnormal Lab Results - Last 24 Hours (Table) 07/03/16 07/03/16 07/04/16 Range/Units 16:50 20:56 11:53 POC Glucose (mg/dL) 153 H 108 H 114 H (75-99) mg/dL Assessment and Plan Plan: #1 Acute exacerbation of severe oxygen dependent chronic obstructive pulmonary disease, complicated by tracheobronchitis. #2 Hypertension. #3 Hyperlipidemia. #4 Hypothyroidism. #5 Rheumatoid arthritis. #6 Benign prostatic hypertrophy. #6 History of shingles. Plan: Continue present course of bronchodilators, antibiotics, admitted to be seen next and Mucomyst to his treatment regimen, if not improved may have to seriously consider bronchoscopy in this patient in the next couple of days. Time with Patient: Less than 30
[2016-07-04] MEDS: ACETYLCYSTEINE 800 MG/4 ML VIAL INHALATION SCH ×2 (15:48→20:43)
[2016-07-04 17:06] LABS: Glucose,Whole Blood 119 mg/dL (75-99)
[2016-07-04 20:52] LABS: Glucose,Whole Blood 114 mg/dL (75-99)
[2016-07-04] MEDS: ATORVASTATIN 20 MG TAB PO SCH (21:20)
[2016-07-04] MEDS: DOCUSATE 100 MG CAP PO SCH (21:20)
[2016-07-04] MEDS: DONEPEZIL 10 MG TAB PO SCH (21:21)
[2016-07-04] MEDS: GABAPENTIN 400 MG CAP PO SCH (21:21)
[2016-07-04] MEDS: ISOSORBIDE MONONITRATE ER 60 MG TAB.ER.24H PO SCH (21:22)
[2016-07-04] MEDS: traZODone HCL 50 MG TAB PO SCH (21:23)
[2016-07-04] MEDS: TAMSULOSIN 0.4 MG CAP.ER.24H PO SCH (21:23)
[2016-07-05] MEDS: HYDROcodone/APAP 10-325MG 1 EACH TAB PO PRN (02:49)
[2016-07-05] MEDS: IPRATROPIUM-ALBUTEROL 3 ML NEB INHALATION SCH ×4 (03:33→10:42)
[2016-07-05] MEDS: LEVOTHYROXINE 100 MCG TAB PO SCH (06:38)
[2016-07-05] MEDS: LEVOTHYROXINE 75 MCG TAB PO SCH (06:38)
[2016-07-05] MEDS: BUDESONIDE 1 MG/2 ML NEBU INHALATION SCH (07:19)
[2016-07-05] MEDS: ACETYLCYSTEINE 800 MG/4 ML VIAL INHALATION SCH ×2 (07:19→10:42)
[2016-07-05] MEDS: INSULIN LISPRO (humaLOG) 300 UNIT/3 ML VIAL SQ SCH ×2 (08:25→12:28)
[2016-07-05 09:12] VITALS: BP 107/70; RESP 18; TEMP 97.6
[2016-07-05] MEDS: GABAPENTIN 300 MG CAP PO SCH (09:28)
[2016-07-05] MEDS: LORazepam 0.5 MG TAB PO SCH ×2 (09:28→12:31)
[2016-07-05] MEDS: PANTOPRAZOLE 40 MG TABLET PO SCH (09:28)
[2016-07-05] MEDS: DOXYCYCLINE 50 MG CAP PO SCH (09:28)
[2016-07-05] MEDS: ASPIRIN 81 MG CHEW PO SCH (09:28)
--- NOTE | 2016-07-05 09:28 | PN ---
DATE OF SERVICE: 07/04/2016 PRESENTING COMPLAINT: Short of breath. INTERVAL HISTORY: This is a patient with advanced COPD exacerbation and tracheobronchitis. Nasal stuffiness actually has cleared, decreased wheezing, no rhonchi in the chest. Doing much better, has been actually up and about, tolerating his diet. Review of systems done for constitutional, cardiovascular, GI, pulmonary; relevant findings as above. Current medications are reviewed that include IV Solu-Medrol q.12. On examination, temperature 97.1, pulse 96, respiration 16, blood pressure 120/73, pulse ox 94% on room air. GENERAL APPEARANCE: Sitting at the edge of the bed, comfortable. EYES: Pupils equal. Conjunctivae normal. NECK: JVD not raised. Mass not palpable. Respiratory effort increased. LUNGS: Improved air entry. Decreased minimal wheezing. CARDIOVASCULAR: First and second sounds normal. No edema. ABDOMEN: Soft, nontender. Liver and spleen not palpable. PSYCHIATRY: Alert and oriented x3. Mood and affect normal. INVESTIGATIONS: Accu-Cheks are noted. ASSESSMENT: 1. Acute advanced chronic obstructive pulmonary disease exacerbation with acute tracheobronchitis, much improved. 2. Gastroesophageal reflux disease. 3. Hyperlipidemia. 4. Essential hypertension. 5. Benign prostatic hypertrophy. 6. Chronic rheumatoid arthritis. 7. Hypothyroidism. 8. Chronic hypoxic respiratory failure on 2 L oxygen at home from underlying chronic obstructive pulmonary disease. 9. Chronic diverticulosis. 10. Alzheimer's dementia, late onset type. 11. Chronic restless leg syndrome. PLAN: I had long talk with the patient. I think patient doing really well compared to what he had come in. I do not think bronchoscopy at this time with lavage will be of any benefit as the patient is greatly improved. Not having any crackles. No sputum production, not congested. I think he will probably benefit from going home. Will of course run this by the pulmonary team.
[2016-07-05] MEDS: ENOXAPARIN 40 MG/0.4 ML SYRINGE SQ SCH (09:29)
[2016-07-05] MEDS: methylPREDNISolone SOD SUCCI 40 MG/ML 1 ML VIAL IV SCH (09:29)
[2016-07-05] MEDS: LORATADINE-PSEUDOEPH 5-120 MG 1 EACH TAB.ER.12H PO SCH (09:29)
[2016-07-05] MEDS: guaiFENesin 600 MG TABLET.ER PO SCH (09:29)
--- NOTE | 2016-07-05 09:32 | PN ---
ADDENDUM: DATE OF SERVICE: 07/03/2016 INVESTIGATIONS: Accu-Cheks are noted. ASSESSMENT: 1. Acute advanced chronic obstructive pulmonary disease exacerbation with acute tracheobronchitis, improving. 2. Gastroesophageal reflux disease. 3. Hyperlipidemia. 4. Essential hypertension. 5. Benign prostatic hypertrophy. 6. Chronic rheumatoid arthritis. 7. Hypothyroidism. 8. Chronic hypoxic respiratory failure on 2 L oxygen at home from underlying chronic obstructive pulmonary disease. 9. Chronic diverticulosis. 10. Alzheimer's dementia, late onset type. 11. Chronic restless leg syndrome. PLAN: Overall, patient doing better. Continue with IV steroids. Will talk with Pulmonary. Care was discussed with the patient.
[2016-07-05] MEDS ORDERED: DOCUSATE 100 MG CAP PO SCH (09:45)
--- NOTE | 2016-07-05 10:18 | P.PN ---
Subjective Progress note dated 07/05/2016 This is an 81-year-old male with a history of underlying COPD. The patient is doing better. Hopes to be able to be discharged. He's feeling better. Still feels like he's got phlegm that he cannot cough up. He looks stable. No respiratory distress no audible wheezing. Sitting the family members. Sees Dr. Diaz in the office. His primary doctor Det[facility]. Anyway again the patient looks well likely be able to be discharged in next day or so. Objective - Vital Signs Vital signs: Vital Signs Temp 97.6 F 07/05/16 07:00 Pulse 67 07/05/16 07:00 Resp 18 07/05/16 07:00 BP 107/70 07/05/16 07:00 Pulse Ox 94 L 07/05/16 07:00 Intake & Output 07/04/16 07/05/16 07/05/16 18:59 06:59 18:59 Other: Voiding Method Toilet # Voids 3 2 - Exam No acute distress, oriented 3. HEENT examination is grossly unremarkable. Mucous membranes are moist. No oral lesions. Neck supple. Full range of motion. No adenopathy or thyromegaly. Cardiovascular examination reveals regular rhythm rate. S1-S2 normal. No S3- S4 or murmur. Lungs reveal mostly clear breath sounds. A few scattered rhonchi. No wheezes or crackles. Breath sounds are significantly diminished. Abdomen soft bowel sounds are heard. No masses. Extremities are intact. No edema. - Labs CBC & Chem 7: 06/30/16 13:18 06/30/16 13:18 Labs: Abnormal Lab Results - Last 24 Hours (Table) 07/04/16 07/04/16 07/04/16 Range/Units 11:53 17:04 20:50 POC Glucose (mg/dL) 114 H 119 H 114 H (75-99) mg/dL Assessment and Plan (1) Acute exacerbation of chronic obstructive airways disease Status: Acute Plan: Plan dated 07/05/2016 The patient is doing better. Likely be able to be discharged soon. The patient feels well. Seems to want to go home. In addition to see severe COPD, he has a history of hypertension hyperlipidemia hypothyroidism and rheumatoid arthritis. Also has a history of BPH. The patient appears not to need bronchoscopy. Likely discharge soon. Time with Patient: Less than 30
[2016-07-05 10:56] VITALS: PULSE 96
[2016-07-05 12:21] LABS: Glucose,Whole Blood 134 mg/dL (75-99)
[2016-07-05] MEDS ORDERED: SYMBICORT 160-4.5 MCG INHALER INHALATION SCH (20:00)
--- NOTE | 2016-07-07 07:40 | DS ---
DATE OF ADMISSION: 06/30/2016 DATE OF DISCHARGE: 07/05/2016 FINAL DIAGNOSES: 1. Acute advanced chronic obstructive pulmonary disease exacerbation with acute tracheobronchitis, present at admission. 2. Gastroesophageal reflux disease. 3. Hyperlipidemia. 4. Essential hypertension. 5. Benign prostatic hypertrophy. 6. Chronic rheumatoid arthritis. 7. Hypothyroidism. 8. Chronic hypoxic respiratory failure on 2 L of oxygen at home from underlying chronic obstructive pulmonary disease. 9. Chronic diverticulosis. 10. Alzheimer's dementia, late-onset type. 11. Chronic restless leg syndrome. CONSULTATION: Dr. Jones from Pulmonary. HOSPITAL COURSE: This patient presented with COPD exacerbation and tracheobronchitis, doing much better after treatment with antibiotics, steroids. On the time of discharge, the patient is feeling much better, going back to his baseline. On exam, lungs decreased breath sounds. CARDIOVASCULAR: First and second sounds normal. PSYCH: Alert and oriented x3. Mood and affect normal. DISCHARGE MEDICATIONS: 1. Aspirin 81 mg a day. 2. Lipitor 20 mg q.h.s. 3. Aricept 10 mg q.h.s. 4. Gabapentin 600 mg b.i.d. 5. Gabapentin 800 mg p.o. q.h.s. 6. Winder 10 one tablet q.6 p.r.n. 7. Imdur ER 60 mg q.h.s. 8. Ativan 0.5 mg p.o. b.i.d. p.r.n. 9. Synthroid 135 mcg p.o. daily. 10. Omeprazole 20 mg b.i.d. 11. Zofran 4 mg p.o. q.i.d. p.r.n. 12. Flomax 0.4 mg p.o. q.h.s. 13. Requip 0.5 mg p.o. q.h.s. 14. Trazodone 150 mg p.o. q.h.s. 15. Symbicort 160.4.5 two puffs b.i.d. 16. DuoNeb q.i.d. 17. Claritin D p.o. q.12. 18. Senokot-S 1 tablet p.o. daily. 19. Prednisone taper. Follow up with Dr. Diaz on 07/13/2016; follow up with Dr. Elkins on 07/09/2016. DC planning more than 35 minutes.
== END 2016-07-05 15:43 | disposition home or self-care (01) | DRG 191 ==
LOC: EC 11:20 → 4MS4W 15:32
PROVIDERS: ADMIT Hospitalist; ATTEND Hospitalist
DX: J44.0 Chronic obstructive pulmonary disease with (acute) lower respiratory infection (principal); J96.11 Chronic respiratory failure with hypoxia; Z99.81 Dependence on supplemental oxygen; G30.9 Alzheimer's disease, unspecified; F02.80 Dementia in other diseases classified elsewhere, unspecified severity, without behavioral disturbance, psychotic disturbance, mood disturbance, and anxiety; J20.9 Acute bronchitis, unspecified; J44.1 Chronic obstructive pulmonary disease with (acute) exacerbation; E03.9 Hypothyroidism, unspecified; E78.5 Hyperlipidemia, unspecified; G25.81 Restless legs syndrome; H54.7 Unspecified visual loss; I10 Essential (primary) hypertension; K21.9 Gastro-esophageal reflux disease without esophagitis; K57.90 Diverticulosis of intestine, part unspecified, without perforation or abscess without bleeding; M06.9 Rheumatoid arthritis, unspecified; N40.0 Benign prostatic hyperplasia without lower urinary tract symptoms; Z79.82 Long term (current) use of aspirin; Z79.899 Other long term (current) drug therapy; Z80.1 Family history of malignant neoplasm of trachea, bronchus and lung; Z86.19 Personal history of other infectious and parasitic diseases; Z87.891 Personal history of nicotine dependence; Z91.041 Radiographic dye allergy status; Z88.0 Allergy status to penicillin
CPT/HCPCS: 36415; 71020; 80053; 82550; 82553; 83036; 84484; 85025; 85610; 85730; 93005; 94640; 94644; 94760; 96374; 96375; 99214; 99291

== ENCOUNTER 2016-12-20 15:36 | Inpatient (IN) | payer MEDICARE, BC ==
[2016-12-20] MEDS ORDERED: ASPIRIN 81 MG PO STA ×2 (16:01→18:42)
[2016-12-20] MEDS ORDERED: SODIUM CHLORIDE 0.9% 1,000 ML IV STA (16:01)
[2016-12-20] MEDS ORDERED: NITROGLYCERIN OINT 1 INCH/GM PACKET TOPICAL STA (16:01)
[2016-12-20] MEDS ORDERED: LORazepam 2 MG/ML SYRINGE IV STA (16:03)
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
[2016-12-20 16:20] LABS: Basophils % (A) 0 %; CH 34.4; CHCM 36.2; Eosinophils # (A) 0.1 k/uL (0-0.7); Eosinophils % (A) 1 %; HCT 48.6 % (39.0-53.0); HDW 2.87; HGB 16.9 gm/dL (13.0-17.5); Luc # (Auto) 0.07; Luc % (Auto) 1; Lymphocytes # (A) 1.4 k/uL (1.0-4.8); Lymphocytes % (A) 21 %; MCH 33.3 pg (25.0-35.0); MCHC 34.9 g/dL (31.0-37.0); MCV 95.4 fL (80.0-100.0); Mean Platelet Volume 8.2; Monocytes # (A) 0.3 k/uL (0-1.0); Monocytes % (A) 5 %; Neutrophils # (A) 4.8 k/uL (1.3-7.7); Neutrophils % (A) 72 %; RBC 5.09 m/uL (4.30-5.90); RDW 13.5 % (11.5-15.5); WBC 6.7 k/uL (3.8-10.6); WBC (Perox) 6.45
[2016-12-20 16:29] LABS: ALT 21 U/L (21-72); AST 21 U/L (17-59); Alkaline Phosphatase 70 U/L (38-126); Amylase 37 U/L (30-110); Anion Gap 13 mmol/L; Blood Urea Nitrogen 15 mg/dL (9-20); Calcium 9.6 mg/dL (8.4-10.2); Carbon Dioxide 21 mmol/L (22-30); Chloride 105 mmol/L (98-107); Glucose 121 mg/dL (74-99); Magnesium 1.8 mg/dL (1.6-2.3); Non-African American GFR(MDRD) >60 (>60 ml/min/1.73 sqM); Potassium 4.8 mmol/L (3.5-5.1); Sodium 139 mmol/L (137-145); Total Bilirubin 1.4 mg/dL (0.2-1.3); Total Protein 6.8 g/dL (6.3-8.2)
[2016-12-20 16:31] LABS: INR 1.1 (<1.2); Partial Thromboplastin Time 22.1 sec (22.0-30.0); Prothrombin Time 10.6 sec (9.0-12.0)
[2016-12-20 16:48] LABS: Creatine Kinase 50 U/L (55-170)
[2016-12-20 17:01] LABS: Troponin I <0.012 ng/mL (0.000-0.034)
--- NOTE | 2016-12-20 17:25 | CT ---
EXAMINATION TYPE: CT brain wo con DATE OF EXAM: 12/20/2016 COMPARISON: NONE HISTORY: Confusion. CT DLP: 1118 mGycm Automated exposure control for dose reduction was used. FINDINGS: There is ectatic basilar artery and distal left vertebral artery. There is no mass effect nor midline shift. There is cerebral cortical atrophy. There is no sign of intracranial hemorrhage. The calvariu m is intact. There is some mucosal thickening in the right posterior ethmoid sinus. IMPRESSION: ETHMOID SINUSITIS. CEREBRAL ATROPHY. VERTEBROBASILAR ECTASIA. NO ACUTE INTRACRANIAL ABNORMALITY.
--- NOTE | 2016-12-20 17:26 | XR ---
EXAMINATION TYPE: XR chest 2V DATE OF EXAM: 12/20/2016 COMPARISON: NONE HISTORY: Chest pain TECHNIQUE: Frontal and lateral views of the chest are obtained. FINDINGS: There is some patchy linear infiltrate and atelectasis at the left lung base. The other ronit ng levi are clear. Heart size is normal. There is no heart failure. Thoracic aorta is atheromatous. There are chest leads. IMPRESSION: There is new mild linear infiltrate and atelectasis at the left lung base compared to ol d exam. No heart failure.
[2016-12-20] MEDS ORDERED: NITROGLYCERIN SL TABS 0.4 MG TAB SUBLINGUAL PRN (18:42)
[2016-12-20] MEDS ORDERED: traZODone HCL 100 MG TAB PO PRN (18:46)
[2016-12-20] MEDS ORDERED: IPRATROPIUM-ALBUTEROL 3 ML NEB INHALATION PRN (18:46)
[2016-12-20] MEDS ORDERED: oxyCODONE-APAP 10-325MG 1 EACH TAB PO PRN (18:46)
[2016-12-20] MEDS ORDERED: LORazepam 0.5 MG TAB PO PRN (18:46)
[2016-12-20] MEDS ORDERED: NON-FORMULARY DRUG (Morphine Pain Pump 1 DOSE) INTRATHECA SCH (19:00)
[2016-12-20 20:46] VITALS: BMI 30.8
[2016-12-20] MEDS: PANTOPRAZOLE 40 MG TABLET PO SCH (22:01)
[2016-12-20] MEDS: GABAPENTIN 400 MG CAP PO SCH (22:01)
[2016-12-20] MEDS: LORazepam 0.5 MG TAB PO SCH (22:02)
[2016-12-20] MEDS: SENNOSIDES 8.6 MG TAB PO SCH (22:02)
[2016-12-20] MEDS: diphenhydrAMINE 25 MG CAP PO SCH (22:02)
[2016-12-20] MEDS: LEVOTHYROXINE 88 MCG TAB PO SCH (22:02)
[2016-12-20] MEDS: ATORVASTATIN 20 MG TAB PO SCH (22:03)
[2016-12-20] MEDS: FAMOTIDINE 20 MG TAB PO SCH (22:03)
[2016-12-20] MEDS: DONEPEZIL 10 MG TAB PO SCH (22:03)
[2016-12-20] MEDS ORDERED: ONDANSETRON 4 MG TAB PO PRN (22:16)
[2016-12-20] MEDS: TAMSULOSIN 0.4 MG CAP.ER.24H PO SCH (22:25)
[2016-12-20] MEDS: CLOTRIMAZOLE TROCHE 10 MG TROCHE MUCOUS MEM SCH (22:29)
[2016-12-20 22:55] LABS: Creatine Kinase 38 U/L (55-170)
[2016-12-20 23:09] LABS: Creatine Kinase MB 0.8 ng/mL (0.0-2.4); Troponin I <0.012 ng/mL (0.000-0.034)
[2016-12-21] MEDS: traZODone HCL 50 MG TAB PO PRN (01:43)
[2016-12-21 03:40] LABS: Creatine Kinase 35 U/L (55-170)
[2016-12-21 03:43] LABS: Cholesterol 111 mg/dL (<200); HDL Cholesterol 34 mg/dL (40-60)
[2016-12-21 03:54] LABS: Creatine Kinase MB 0.7 ng/mL (0.0-2.4); Troponin I <0.012 ng/mL (0.000-0.034)
[2016-12-21] MEDS: NITROGLYCERIN OINT 1 INCH/GM PACKET TOPICAL SCH ×2 (06:54→14:47)
[2016-12-21] MEDS: SYMBICORT 80-4.5 MCG INHALER INHALATION SCH ×2 (07:51→19:09)
[2016-12-21] MEDS ORDERED: ASPIRIN 325 MG TAB PO SCH (09:00)
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
--- NOTE | 2016-12-21 10:31 | ECHOF ---
Referral Reason: MEASUREMENTS -------- HEIGHT: 170.2 cm WEIGHT: 89.4 kg BP: 128/71 RVIDd: 3.0 cm (< 3.3) IVSd: 1.1 cm (0.6 - 1.1) LVIDd: 4.0 cm (3.9 - 5.3) LVPWd: 1.1 cm (0.6 - 1.1) IVSs: 1.5 cm LVIDs: 3.3 cm LVPWs: 1.3 cm LA Diam: 3.2 cm (2.7 - 3.8) Ao Diam: 3.6 cm (2.0 - 3.7) AV Cusp: 2.1 cm (1.5 - 2.6) LA Diam: 4.5 cm (2.7 - 3.8) MV EXCURSION: 17.961 mm (> 18.000) MV EF SLOPE: 71 mm/s (70 - 150) EPSS: 0.9 cm MV E Kishore: 0.65 m/s MV DecT: 175 ms MV A Kishore: 0.78 m/s MV E/A Ratio: 0.83 RAP: 5.00 mmHg RVSP: 16.58 mmHg FINDINGS -------- Sinus rhythm. This was a technically adequate study. The left ventricular size is normal. Left ventricular wall thickness is normal. Overall left ventricular systolic function is normal with, an EF between 55 - 60 %. The right ventricle is normal in size. The left atrial size is normal. The right atrial size is normal. The aortic valve is trileaflet, and appears structurally normal. No aortic stenosis or regurgitation. Mild mitral annular calcification present. Mild mitral regurgitation is present. Mild tricuspid regurgitation present. There is no evidence of pulmonary hypertension. The right ventricular systolic pressure, as measured by Doppler, is 16.58mmHg. There is no pulmonic regurgitation present. The aortic root size is normal. There is no pericardial effusion. CONCLUSIONS -------- 1. The left ventricular size is normal. 2. There is no pulmonic regurgitation present. 3. There is no pericardial effusion. 4. Left ventricular wall thickness is normal. 5. Overall left ventricular systolic function is normal with, an EF between 55 - 60 %. 6. The aortic valve is trileaflet, and appears structurally normal. No aortic stenosis or regurgitation. 7. Mild mitral annular calcification present. 8. Mild mitral regurgitation is present. 9. Mild tricuspid regurgitation present. 10. There is no evidence of pulmonary hypertension. 11. The right ventricular systolic pressure, as measured by Doppler, is 16.58mmHg. TIRE BUILDING SUPERVISOR: Elaina Paiz RDCS
--- NOTE | 2016-12-21 10:48 | P.CON ---
Consult Note - . Consult date: 12/21/16 Assessment/Plan:: Mr. Renee is an 81-year-old male admitted to [facility] with chest pain rule-out and complaints of increasing sedation, confusion, and weakness since placement of an intrathecal pain pump three months ago by Dr. Hilliard. Troponins are negative and patient is awaiting stress test and echo at this time. Patient is also taking rare Percocet and occasional Ativan and/or Xanax as dosed by patient 's daughter and gabapentin in addition, and the family is concerned because the patient is sleeping all the time. Interrogation of the patient's intrathecal pump demonstrates a morphine concentration of 25 mg/ml and a current dose of 1.2 mg/day. I attempted to decrease the daily dose of intrathecal morphine, but was unable to as 1.2 mg/ day is the minimum that the intrathecal pump can deliver at the current concentration of medication. I recommend that all prn benzodiazepines be avoided or at least minimized until the patient can return to Dr. Hilliard's office for a pump refill at a lower concentration of morphine in order to be able to decrease his dose. Case was discussed with the patient, patient's son and daughter, and with Dr. Hilliard. From pain management perspective, patient can be discharged once his cardiac workup is completed, and no additional opioid prescriptions are needed. Thank you for the consult. I spent approximately 55-60 minutes in the care of this patient in records review, discussion with family, and discussion with other providers.
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
[2016-12-21] MEDS: CLOTRIMAZOLE TROCHE 10 MG TROCHE MUCOUS MEM SCH ×3 (15:13→20:09)
[2016-12-21] MEDS: ENOXAPARIN 40 MG/0.4 ML SYRINGE SQ SCH (15:13)
[2016-12-21] MEDS: LEVOTHYROXINE 88 MCG TAB PO SCH (20:04)
[2016-12-21] MEDS: diphenhydrAMINE 25 MG CAP PO SCH (20:07)
[2016-12-21] MEDS: PANTOPRAZOLE 40 MG TABLET PO SCH (20:07)
[2016-12-21] MEDS: ATORVASTATIN 20 MG TAB PO SCH (20:07)
[2016-12-21] MEDS: GABAPENTIN 400 MG CAP PO SCH (20:08)
[2016-12-21] MEDS: DONEPEZIL 10 MG TAB PO SCH (20:08)
[2016-12-21] MEDS: LORazepam 0.5 MG TAB PO SCH (20:08)
[2016-12-21] MEDS: ISOSORBIDE MONONITRATE ER 60 MG TAB.ER.24H PO SCH (20:08)
[2016-12-21] MEDS: SENNOSIDES 8.6 MG TAB PO SCH (20:08)
[2016-12-21] MEDS: FAMOTIDINE 20 MG TAB PO SCH (20:08)
[2016-12-21] MEDS: TAMSULOSIN 0.4 MG CAP.ER.24H PO SCH (20:09)
--- NOTE | 2016-12-21 23:50 | HP ---
HISTORY AND PHYSICAL DATE OF ADMISSION: December 20, 2016. PRESENTING COMPLAINT: Chest pressure. HISTORY OF PRESENT COMPLAINT: This patient was seen by me yesterday on December 20, 2016 yesterday in the observation unit. The patient's chronic stable medical conditions include COPD, GERD, hypertension, BPH, rheumatoid arthritis home oxygen on 2 L, diverticulosis, restless leg syndrome and Alzheimer's dementia, patient presented to the ER with multitude of symptoms. The patient was having some pressure sensation across the chest. Slight shortness of breath. No perspiration. Present for a few hours. Also at the same time, patient is rather anxious, has a new pain pump. Not working the way it is supposed to be. Being followed by Dr. Hilliard. The patient is rather anxious. All these multiple symptoms precipitated his admission. The patient does have a walker. REVIEW OF SYSTEMS: Constitutional tired. HEENT: None. RESPIRATORY: As above. Cardiovascular as above. GASTROINTESTINAL: Heartburn. GENITOURINARY: None. MUSCULOSKELETAL: Pain in different joints. DERMATOLOGICAL: None. HEMATOLOGICAL: None. LYMPHATICS: None. PSYCHIATRIC: Forgetful. Neurological: Restless legs. PAST HISTORY: COPD, GERD, hypertension, hyperlipidemia, BPH, rheumatoid arthritis, hypothyroid, chronic hypoxic respiratory failure, diverticulosis, Alzheimer's, restless leg syndrome. PAST SURGICAL HISTORY: Cardiac catheterization, right eye lens implant, bilateral foot surgery, repair of left index finger, bilateral rotator cuff repair. SOCIAL HISTORY: The patient lives with his daughter. Uses a walker. Smoked a pack a day for 11 years. Stopped in 1962. Alcohol occasionally. FAMILY HISTORY: TB, tuberculosis. Liver cirrhosis. HOME MEDICATIONS: 1. Trazodone 150 mg p.o. q.h.s. p.r.n. 2. Requip 0.5 p.o. q.h.s. 3. Percocet 10 1 tab q.6h hours p.r.n. 4. Benadryl 25 mg p.o. q.h.s. 5. Flomax 0.4 mg p.o. q.h.s. 6. Senokot 8.6 mg p.o. q.h.s. 7. Zantac 300 mg p.o. q.h.s. 8. Omeprazole 40 mg p.o. q.h.s. 9. Morphine pain pump intrathecal. 10.Synthroid 125 mcg p.o. q.h.s. 11.Ativan 0.5 mg q.h.s. and p.r.n. 12.Imdur ER 60 mg q.h.s. 13.DuoNeb t.i.d. p.r.n. 14.Neurontin 800 mg q.h.s. 15.Breo Ellipta 100/25, 1 puff daily. 16.Aricept 10 mg q.h.s. 17.Mycelex push 10 mg t.i.d. 18.Lipitor 20 mg p.o. q.h.s. ALLERGIES: IV CONTRAST DYE AND PENICILLIN PHYSICAL EXAMINATION: On examination, temperature 97.1, pulse 91, respirations 18, blood pressure 113/73 pulse ox 98% on 2 L. GENERAL: BMI 38.9, well built, lying in bed, tired appearing. Eyes: The pupils equal. Conjunctivae normal. HEENT oral cavity normal. Neck JVD not raised. Mass not palpable. Respiratory effort: Lungs slightly decreased breath sounds. Cardiovascular first and second sounds normal. No edema. ABDOMEN: Soft, nontender. Liver and spleen not palpable. Pain pump in place. LYMPHATIC: No lymphs nodes palpable in the neck and axilla. Psychiatry: Alert and oriented times three. Mood and affect: Tired appearing. INVESTIGATIONS: White count 6.7, hemoglobin 16.9, potassium 4.8. BUN and creatinine is normal. Troponin negative. EKG nonspecific T-wave changes. ASSESSMENT: 1. Assessment anterior chest wall. Cause indeterminate. This could be psychosomatic. Patient was rather anxious. On initial presentation, worried about his pain issues. 2. Chronic obstructive pulmonary disease in an ex-smoker. 3. Gastroesophageal reflux disease. 4. Essential hypertension. 5. Hyperlipidemia. 6. Benign prostatic hypertrophy. 7. Chronic rheumatoid arthritis. 8. Hypothyroid. 9. Chronic hypoxic respiratory failure. 10.Diverticulosis. 11.Alzheimer's dementia late onset type. 12.Restless leg syndrome. 13.Gait dysfunction uses a walker. PLAN: Consultation with Pulmonary and Cardiology is done. Serial cardiac enzymes are in place. Also pain management, Dr. Li was consulted. Care was discussed with the patient. MMODL / IJN: [id number] /
[2016-12-22] MEDS ORDERED: AMINOPHYLLINE 500 MG/20 ML VIAL IV PRN (05:00)
[2016-12-22] MEDS: SYMBICORT 80-4.5 MCG INHALER INHALATION SCH ×2 (07:31→20:22)
[2016-12-22 07:44] VITALS: RESP 18
[2016-12-22] MEDS ORDERED: REGADENOSON 0.4 MG/5 ML SYRINGE IV ONE (09:00)
--- NOTE | 2016-12-22 09:28 | PN ---
PROGRESS NOTE DATE OF SERVICE: 12/21/16 PRESENTING COMPLAINT: Chest pressure. INTERVAL HISTORY: This patient with multiple medical problems, presented with chest pressure, feeling somewhat better this morning. The pain pump will be adjusted by Dr. Hilliard as an outpatient. The patient's friend is at the bedside. The patient is being scheduled for a stress test. REVIEW OF SYSTEMS: Review of systems done for constitutional, cardiovascular, GI, pulmonary, relevant findings as above. MEDICATIONS: Current medications reviewed. PHYSICAL EXAMINATION: Temperature 98.6, pulse 55, respiration 18, blood pressure 102/62, pulse ox 93% room air. General appearance: Lying in bed, comfortable. EYES: Pupils equal. Conjunctivae normal. Neck: JVD not raised. Mass not palpable. Respiratory effort lungs decreased breath sounds. Cardiovascular: First and second sounds normal. ABDOMEN: Soft, nontender. Psychiatry: Alert and oriented times three. Mood and affect slightly low. INVESTIGATIONS: Troponin times three negative. ASSESSMENT: 1. Anterior chest wall pain. Given his risk factors, cardiac cause is being ruled out via stress test. 2. Chronic obstructive pulmonary disease in an ex-smoker. 3. Gastroesophageal reflux disease. 4. Hypertension. 5. Hyperlipidemia. 6. Benign prostatic hypertrophy. 7. Chronic rheumatoid arthritis. 8. Hypothyroid. 9. Chronic hypoxic respiratory failure from chronic obstructive pulmonary disease. 10.Diverticulosis, colonic. 11.Restless leg syndrome. 12.Alzheimer's dementia late onset type. PLAN: Care was discussed with the patient. Due for stress test tomorrow. We will continue other medications. MMODL / IJN: [id number] /
[2016-12-22] MEDS ORDERED: SODIUM CHLORIDE 0.9% 1,000 ML IV SCH ×2 (10:15→22:45)
[2016-12-22] MEDS: ENOXAPARIN 40 MG/0.4 ML SYRINGE SQ SCH (10:59)
[2016-12-22] MEDS: CLOTRIMAZOLE TROCHE 10 MG TROCHE MUCOUS MEM SCH ×3 (11:00→22:00)
[2016-12-22] MEDS: ASPIRIN 81 MG PO SCH (11:00)
[2016-12-22] MEDS: SODIUM CHLORIDE 0.9% 1,000 ML IV SCH (11:23)
--- NOTE | 2016-12-22 13:43 | P.PN ---
Subjective This is an 81-year old male being seen for c/o chest pain. He was scheduled to undergo Lexiscan stress test today after his morphine dose was decreased and he was less lethargic. It appears the pump was unable to be decreased due to the concentration of the morphine. Blood pressure 86/70 with heart rate 54 prior to starting the stress test. He was also increasingly lethargic and weak. The test was cancelled at this time. He continues to c/o chest tightness intermittently. Denies shortness of breath, dizziness, palpitations or diaphoresis. Objective - Vital Signs Vital signs: Vital Signs Temp 98.8 F 12/22/16 11:34 Pulse 54 L 12/22/16 12:00 Resp 18 12/22/16 12:00 BP 91/57 12/22/16 11:34 Pulse Ox 94 L 12/22/16 11:34 Intake & Output 12/21/16 12/22/16 12/22/16 18:59 06:59 18:59 Intake Total 440 240 Balance 440 240 Weight 89.358 kg Intake: Oral 440 240 Other: Voiding Method Toilet Toilet Toilet # Voids 1 1 - Exam GENERAL: Well-appearing, well-nourished and in no acute distress. NECK: Supple without JVD or thyromegaly. LUNGS: Breath sounds clear to auscultation bilaterally. Respiration equal and unlabored. No wheezes, rales or rhonchi. HEART: Regular rate and rhythm without murmurs, rubs or gallops. S1 and S2 heard. EXTREMITIES: Normal range of motion, no edema. No clubbing or cyanosis. Peripheral pulses intact and strong. - Labs CBC & Chem 7: 12/20/16 15:55 12/20/16 15:55 Assessment and Plan Plan: ASSESSMENT 1. Chest pain, atypical 2. History of stable chronic CAD 3. Essential HTN 4. Dyslipidemia 5. Chronic COPD, stable 6. Chronic back pain with recent pain pump implantation PLAN Discontinue all oral narcotics and benzodiazapines as per pain management recommendations. We will hydrate the pt with 0.9% sodium chloride at 100cc/hr and we will attempt to repeat the Lexiscan in the morning. Echocardiogram done yesterday indicates her left ventricular function with ejection fraction 55-60%. Nurse Practitioner note has been reviewed, I agree with a documented findings and plan of care. Patient was seen and examined.
--- NOTE | 2016-12-22 15:20 | P.PN ---
Progress Note - Text DATE OF SERVICE: 12/22/2016 PRESENTING COMPLAINT: Chest pressure HISTORY OF PRESENT ILLNESS: 81-year-old male presents with chest pressure, occurred across the entire chest wall, some shortness of breath and present for a few hours. Has a pain pump which is followed by Dr. Hilliard. Pain pump require some adjustment as patient has been a bit lethargic, feels the pump is not working properly. INTERVAL HISTORY: 12/22/2016: Patient scheduled for stress test today and is nothing by mouth. No further episodes of chest pain overnight. Appears to be more alert today. Ambulatory with a cane and some assistance to and from the bathroom. Last BM prior to admission. REVIEW OF SYSTEMS: Done for constitutional ,cardiovascular, GI, pulmonary with relevant findings as above. CURRENT MEDICATIONS Benadryl, Aricept, Lovenox, famotidine, Neurontin, Imdur 60 mg by mouth at bedtime, Synthroid 176 g by mouth at bedtime, Requip 0.5 mg by mouth at bedtime , tamsulosin 0.4 mg by mouth at bedtime. PHYSICAL EXAM VITAL SIGNS: Temperature 97.7, pulse 52, respiratory rate 18, blood pressure 114/68, oxygen saturation 94% on room air. GENERAL APPEARANCE: Lying in bed, not in distress. EYES: Pupils equal. Conjunctiva normal. NECK: JVD not raised. Mass not palpable. RESPIRATORY: Respiratory effort normal. Lungs diminished to auscultation. CARDIOVASCULAR: First and second sounds normal. No edema. ABDOMEN: Soft. Liver and spleen not palpable. No tenderness. No mass palpable. PSYCHIATRY: Alert and oriented x3. Mood and affect tired appearing. INVESTIGATIONS: HDL 34 ASSESSMENT: -Atypical anterior chest wall chest pain, cause indeterminate. Could be psychosomatic, patient's anxious, -Chronic obstructive pulmonary disease in an ex-smoker. -Gastroesophageal reflux disease. -Essential hypertension. -Hyperlipidemia. -Benign prostatic hypertrophy. -Chronic rheumatoid arthritis. -Hypothyroidism -Chronic hypoxic respiratory failure. -Diverticulosis. -Alzheimer's dementia late onset type. -Rest leg syndrome. -Gait dysfunction uses walker. PLAN: Dr. Li from pain management came to see the patient unable to adjust the pain pump patient will need a follow-up with Dr. Hilliard for adjustments. Unable to complete stress test today due to hypotension, all oral narcotics and benzodiazepines of been discontinued, patient will be hydrated with 0.9 normal saline 100 mL an hour and we'll repeat Mariana scan in the morning. VEHICLE GLASS TECHNICIAN statement: Patient was seen and examined by nurse practitioner Risa Booker and all elements of the case discussed with attending Dr. Barajas
[2016-12-22] MEDS: ACETAMINOPHEN TAB 325 MG TAB PO PRN (15:38)
--- NOTE | 2016-12-22 17:19 | PN ---
PROGRESS NOTE DATE OF SERVICE: 12/22/16 ATTENDING NOTE: Patient seen and examined by me. I discussed the case with my nurse practitioner Ms. Booker. The patient was not able to complete the stress test. Blood pressure is running on the low side. PHYSICAL EXAMINATION: On exam lungs decreased breath sounds. Cardiovascular first and second sounds normal. Psych: Awake, answering questions. Troponins are negative. ASSESSMENT: Chest pain for repeat stress test tomorrow. Follow with cardiology. Care was discussed with the patient. SARA / ABUNDION: [id number] /
[2016-12-22] MEDS: DONEPEZIL 10 MG TAB PO SCH (21:46)
[2016-12-22] MEDS: ATORVASTATIN 20 MG TAB PO SCH (21:46)
[2016-12-22] MEDS: traZODone HCL 50 MG TAB PO PRN (21:46)
[2016-12-22] MEDS: ISOSORBIDE MONONITRATE ER 60 MG TAB.ER.24H PO SCH (21:46)
[2016-12-22] MEDS: PANTOPRAZOLE 40 MG TABLET PO SCH (21:46)
[2016-12-22] MEDS: GABAPENTIN 400 MG CAP PO SCH (21:46)
[2016-12-22] MEDS: diphenhydrAMINE 25 MG CAP PO SCH (21:46)
[2016-12-22] MEDS: FAMOTIDINE 20 MG TAB PO SCH (21:46)
[2016-12-22] MEDS: LEVOTHYROXINE 88 MCG TAB PO SCH (21:46)
[2016-12-22] MEDS: SENNOSIDES 8.6 MG TAB PO SCH (21:47)
[2016-12-22] MEDS: TAMSULOSIN 0.4 MG CAP.ER.24H PO SCH (21:47)
[2016-12-23] MEDS: ACETAMINOPHEN TAB 325 MG TAB PO PRN (02:14)
[2016-12-23] MEDS: SYMBICORT 80-4.5 MCG INHALER INHALATION SCH (07:17)
[2016-12-23] MEDS: SODIUM CHLORIDE 0.9% 1,000 ML IV SCH (08:32)
[2016-12-23] MEDS: ENOXAPARIN 40 MG/0.4 ML SYRINGE SQ SCH (08:47)
[2016-12-23] MEDS: CLOTRIMAZOLE TROCHE 10 MG TROCHE MUCOUS MEM SCH (08:47)
[2016-12-23] MEDS: ASPIRIN 81 MG PO SCH (08:47)
--- NOTE | 2016-12-23 09:50 | P.PN ---
Subjective This is an 81-year old male being seen for c/o chest pain. We will attempt Lexiscan stress test today after yesterday had to be cancelled due to lethargy and hypotension. Upon exam today he is seen sitting up in bed. He denies active chest pain, sob, dizziness, palpitations, nausea or vomiting. He is much more awake and alert this morning. BP 109-67, heart rate 64, he states he has been up and down to the bathroom a couple times overnight. We will proceed today with his test as scheduled. Objective - Vital Signs Vital signs: Vital Signs Temp 97.8 F 12/23/16 07:53 Pulse 64 12/23/16 07:53 Resp 18 12/23/16 07:53 BP 109/67 12/23/16 07:53 Pulse Ox 94 L 12/23/16 07:53 Intake & Output 12/22/16 12/23/16 12/23/16 18:59 06:59 18:59 Intake Total 1132 400 Output Total 1000 Balance 1132 -600 Weight 89.358 kg Intake: Oral 1132 400 Output: Urine 1000 Other: Voiding Method Toilet Toilet Toilet # Voids 3 - Exam GENERAL: Well-appearing, well-nourished and in no acute distress. NECK: Supple without JVD or thyromegaly. LUNGS: Breath sounds clear to auscultation bilaterally. Respiration equal and unlabored. No wheezes, rales or rhonchi. HEART: Regular rate and rhythm without murmurs, rubs or gallops. S1 and S2 heard. EXTREMITIES: Normal range of motion, no edema. No clubbing or cyanosis. Peripheral pulses intact and strong. - Labs CBC & Chem 7: 12/20/16 15:55 12/20/16 15:55 Assessment and Plan Plan: ASSESSMENT 1. Chest pain, atypical 2. History of stable chronic CAD 3. Essential HTN 4. Dyslipidemia 5. Chronic COPD, stable 6. Chronic back pain with recent pain pump implantation PLAN Proceed with Lexiscan stress test this morning as scheduled. If this is normal he is stable for discharge home from a cardiac standpoint. Nurse Practitioner note has been reviewed, I agree with a documented findings and plan of care. Patient was seen and examined.
--- NOTE | 2016-12-23 11:08 | NM ---
EXAMINATION TYPE: NM stress lexiscan cardiolite DATE OF EXAM: 12/23/2016 COMPARISON: NONE HISTORY: History of hypertension and hypercholesterolemia as well as prior tobacco use and prior hear t catheterization as well as history of prior TIA and COPD presents with chest pain TECHNIQUE: After the intravenous administration of 10.8 mCi Tc 99m Sestamibi - Cardiolite resting SP ECT images acquired 45 minutes post injection. The patient received 0.4mg Lexiscan, 25.5 mCi Tc 99m Sestamibi - Stress images obtained [address] injection FINDINGS: Review of stress and rest SPECT images demonstrates overall diminished radiotracer uptake involving t he inferior left ventricular wall at stress and rest images which old infarct cannot be excluded thching martinez I favor this is predominantly artifactual. No convincing scintigraphic evidence for reversible is chemia seen. Gated analysis shows normal wall motion however with an estimated left ventricular eject ion fraction of 73 %. IMPRESSION: No scintigraphic evidence for reversible ischemia.
--- NOTE | 2016-12-23 13:13 | EST ---
EXERCISE STRESS DATE OF SERVICE: 12/23/2016 AGE: 81 SEX: Male HT: 67" WT: 197 PROTOCOL: Lexiscan Cardiolite STAGE: DURATION OF EXERCISE: HEART RATE REST: 62 BLOOD PRESSURE REST: 104/62 MAXIMUM HEART RATE ACHIEVED: 84 MAXIMUM BLOOD PRESSURE: 117/60 85% MPHR: 118 100% MPHR: 139 METS: INDICATIONS: Chest pain. CLINICAL INFORMATION: Baseline EKG revealed a normal sinus rhythm without significant ST-T changes. With Lexiscan administration heart rate went up from 62 to 84 beats per minute. Blood pressure changed from 104/62 to 94/66, and then came back to baseline. The patient did not have any significant symptoms. EKG revealed minor nonspecific ST-T changes, which persisted making this an inconclusive Lexiscan stress test by EKG criteria. By EKG criteria, this is an inconclusive Lexiscan stress test because of minor resting EKG changes. Patient did not have any angina or arrhythmia. The nuclear scan results, which are more pertinent, will be reported by the radiologist. MMPHYLLIS / IJN: [id number] /
--- NOTE | 2016-12-23 13:47 | P.DS ---
Providers Date of admission: 12/23/16 08:21 Attending physician: Ralph Barajas Consults: 12/20/16 18:42 Consult Physician Urgent Consulting Provider: Jose Luis Li Consult Reason/Comments: pain managment Do you want consulting provider notified?: Yes Consult Physician Urgent Consulting Provider: Carlos Ashley Consult Reason/Comments: cp Do you want consulting provider notified?: Yes Primary care physician: [facility] Course: 81-year-old male presents with chest pressure, occurred across the entire chest wall, some shortness of breath and present for a few hours. Has a pain pump which is followed by Dr. Hilliard. Patient had chest pain, underwent stress test which was negative and patient is being discharged today to follow with the family care physician and neurology as an outpatient. PHYSICAL EXAMINATION: GENERAL: The patient is alert and oriented x3, not in any acute distress. Well developed, well nourished. HEENT: Pupils are round and equally reacting to light. EOMI. No scleral icterus. No conjunctival pallor. Normocephalic, atraumatic. No pharyngeal erythema. No thyromegaly. CARDIOVASCULAR: S1 and S2 present. No murmurs, rubs, or gallops. PULMONARY: Chest is clear to auscultation, no wheezing or crackles. ABDOMEN: Soft, nontender, nondistended, normoactive bowel sounds. No palpable organomegaly. MUSCULOSKELETAL: No joint swelling or deformity. EXTREMITIES: No cyanosis, clubbing, or pedal edema. NEUROLOGICAL: Gross neurological examination did not reveal any focal deficits. SKIN: No rashes. Atypical anterior chest wall chest pain, musculoskeletal and stresses is negative -Chronic obstructive pulmonary disease in an ex-smoker. Not in exacerbation -Gastroesophageal reflux disease. -Essential hypertension. -Hyperlipidemia. -Benign prostatic hypertrophy. -Chronic rheumatoid arthritis. -Hypothyroidism -Rest leg syndrome. -Gait dysfunction uses walker. Patient Condition at Discharge: Fair Plan - Discharge Summary New Discharge Prescriptions: No Action rOPINIRole HCL [Requip] 0.5 mg PO HS traZODone HCL 150 mg PO HS PRN PRN Reason: Insomnia Omeprazole 40 mg PO HS LORazepam [Ativan] 0.5 mg PO DAILY PRN PRN Reason: Anxiety Levothyroxine Sodium [Synthroid] 175 mcg PO HS Isosorbide Mononitrate ER [Imdur] 60 mg PO HS Gabapentin 800 mg PO HS Donepezil [Aricept] 10 mg PO HS Atorvastatin [Lipitor] 20 mg PO HS Tamsulosin HCl [Flomax] 0.4 mg PO HS Fluticasone/Vilanterol [Breo Ellipta 100-25 Mcg Inhaler] 1 puff INHALATION RT -DAILY oxyCODONE-APAP 10-325MG [Percocet 10-325 mg] 1 tab PO HS PRN PRN Reason: Pain Ipratropium-Albuterol Nebulize [Duoneb 0.5 mg-3 mg/3 ml Soln] 3 ml INHALATION RT-TID PRN PRN Reason: Shortness Of Breath Sennosides [Senokot] 8.6 mg PO HS diphenhydrAMINE HCL [Benadryl] 25 mg PO HS LORazepam [Ativan] 0.5 mg PO HS Clotrimazole [place] [Mycelex [place]] 10 mg MUCOUS MEM TID Ranitidine HCl [Zantac] 300 mg PO HS Morphine Pain Pump 1 dose INTRATHECA CONTINUOUS Discharge Medication List Atorvastatin [Lipitor] 20 mg PO HS 06/30/16 [History] Donepezil [Aricept] 10 mg PO HS 06/30/16 [History] Gabapentin 800 mg PO HS 06/30/16 [History] Isosorbide Mononitrate ER [Imdur] 60 mg PO HS 06/30/16 [History] LORazepam [Ativan] 0.5 mg PO DAILY PRN 06/30/16 [History] Levothyroxine Sodium [Synthroid] 175 mcg PO HS 06/30/16 [History] Omeprazole 40 mg PO HS 06/30/16 [History] Tamsulosin HCl [Flomax] 0.4 mg PO HS 06/30/16 [History] rOPINIRole HCL [Requip] 0.5 mg PO HS 06/30/16 [History] traZODone HCL 150 mg PO HS PRN 06/30/16 [History] Clotrimazole [place] [Mycelex [place]] 10 mg MUCOUS MEM TID 12/20/16 [History] Fluticasone/Vilanterol [Breo Ellipta 100-25 Mcg Inhaler] 1 puff INHALATION RT- DAILY 12/20/16 [History] Ipratropium-Albuterol Nebulize [Duoneb 0.5 mg-3 mg/3 ml Soln] 3 ml INHALATION RT -TID PRN 12/20/16 [History] LORazepam [Ativan] 0.5 mg PO HS 12/20/16 [History] Morphine Pain Pump 1 dose INTRATHECA CONTINUOUS 12/20/16 [History] Ranitidine HCl [Zantac] 300 mg PO HS 12/20/16 [History] Sennosides [Senokot] 8.6 mg PO HS 12/20/16 [History] diphenhydrAMINE HCL [Benadryl] 25 mg PO HS 12/20/16 [History] oxyCODONE-APAP 10-325MG [Percocet 10-325 mg] 1 tab PO HS PRN 12/20/16 [History] Follow up Appointment(s)/Referral(s): Sharmin Diaz MD [Primary Care Provider] - 1-2 days Anita Gutierrez MD [STAFF PHYSICIAN] - 01/03/17 10:45 am Discharge Disposition: HOME SELF-CARE
[2016-12-23 15:12] VITALS: BP 119/71; PULSE 72; TEMP 98
== END 2016-12-23 15:00 | disposition home or self-care (01) | DRG 313 ==
LOC: EC 15:36 → 3OBS 18:42 → OBSVTOIN 12-23 08:21
PROVIDERS: ADMIT Hospitalist; ATTEND Hospitalist
DX: R07.89 Other chest pain (principal); J96.11 Chronic respiratory failure with hypoxia; J98.11 Atelectasis; I25.10 Atherosclerotic heart disease of native coronary artery without angina pectoris; I95.9 Hypotension, unspecified; J44.9 Chronic obstructive pulmonary disease, unspecified; G30.1 Alzheimer's disease with late onset; M06.9 Rheumatoid arthritis, unspecified; R13.10 Dysphagia, unspecified; F02.80 Dementia in other diseases classified elsewhere, unspecified severity, without behavioral disturbance, psychotic disturbance, mood disturbance, and anxiety; I10 Essential (primary) hypertension; E03.9 Hypothyroidism, unspecified; E78.5 Hyperlipidemia, unspecified; F41.9 Anxiety disorder, unspecified; G25.81 Restless legs syndrome; G89.29 Other chronic pain; K21.9 Gastro-esophageal reflux disease without esophagitis; K44.9 Diaphragmatic hernia without obstruction or gangrene; K57.90 Diverticulosis of intestine, part unspecified, without perforation or abscess without bleeding; N40.0 Benign prostatic hyperplasia without lower urinary tract symptoms; G43.909 Migraine, unspecified, not intractable, without status migrainosus; H26.9 Unspecified cataract; M54.9 Dorsalgia, unspecified; R26.9 Unspecified abnormalities of gait and mobility; Z79.899 Other long term (current) drug therapy; Z87.891 Personal history of nicotine dependence; Z88.0 Allergy status to penicillin; Z91.041 Radiographic dye allergy status
CPT/HCPCS: 36415; 70450; 71020; 78452; 80053; 80061; 82150; 82550; 82553; 83690; 83735; 84484; 85025; 85610; 85730; 93017; 93306; 94640; 94760; 96361; 96374; 99285

== ENCOUNTER → 2017-01-11 | Outpatient (CLI) | payer MEDICARE, BC ==
[2017-01-11 18:13] LABS: Blood Urea Nitrogen 18 mg/dL (9-20); Non-African American GFR(MDRD) 58 (>60 ml/min/1.73 sqM)
--- NOTE | 2017-01-11 19:44 | CT ---
EXAMINATION TYPE: CT chest w con DATE OF EXAM: 01/11/2017 COMPARISON: Prior CT thorax February 19, 2009. Chest x-ray December 20, 2016 HISTORY: Dysphagia and chest pain per order. CT DLP: 374.50 mGycm. Automated Exposure Control for Dose Reduction was Utilized. TECHNIQUE: CT scan of the thorax is performed following with IV Contrast, patient injected with 80 m L of Visipaque 320. FINDINGS: LUNGS: There is patchy linear scarring and/or atelectasis in both bases near diaphragm. There is no c oncerning parenchymal mass or nodule identified. There is no pleural effusion or pneumothorax seen. The tracheobronchial tree is patent. MEDIASTINUM: There are no greater than 1 cm hilar or mediastinal lymph nodes. No cardiomegaly or pe ricardial effusion is seen. Some coronary artery calcification is present which is noted marker for coronary artery disease. Visualized esophagus is felt within normal limits. OTHER: Moderate multilevel spurring in the mid to lower thoracic spine is seen. There is nonspecific enhancement of the lumbosacral nerve root in the lower thoracic and upper lumbar spinal canal right o f midline. IMPRESSION: No significant new or acute finding is present to account for patient's symptoms.
== END | disposition home or self-care (01) ==
LOC: RADCTMAIN 17:28
PROVIDERS: ATTEND Surgery
DX: R13.10 Dysphagia, unspecified (principal)
CPT/HCPCS: 82565; 84520; 71260; 36415; Q9967

== ENCOUNTER → 2017-01-13 | Outpatient (CLI) | payer MEDICARE, BC ==
--- NOTE | 2017-01-13 14:08 | FL ---
EXAMINATION: Cervical and Thoracic Esophagram DATE OF EXAM: 01/13/2017 CLINICAL INDICATION: 81-year-old male with dysphasia for a few months and hoarseness. Patient complai ns of food getting stuck in the sternal region. COMPARISON: Correlation CT 01/11/2017. Total Fluoroscopy Time: 2 minutes 18 seconds Total images: 22 FINDINGS: The swallowing mechanism is normal and hypopharyngeal anatomy is preserved. Mild piriform sinus resi duals are present. The cervical and thoracic portions have a normal course and caliber. The mucosa is normal and no pers istent filling defect is encountered. However, mild tertiary peristaltic contractions are demonstrated and there is delayed clearance of co ntrast from the esophagus with blunted secondary stripping waves. No hiatal hernia is present. Gastroesophageal reflux could not be elicited during the course of the e xam. IMPRESSION: 1. The degree of mild esophageal dysmotility does not appear to be out of proportion to the patient's age. 2. No stricture or suspicious mucosal lesion seen.
== END | disposition home or self-care (01) ==
LOC: RADFLWHC 10:59
PROVIDERS: ATTEND Surgery
DX: R93.3 Abnormal findings on diagnostic imaging of other parts of digestive tract (principal); R13.10 Dysphagia, unspecified
CPT/HCPCS: 74220

== ENCOUNTER 2017-01-15 21:49 | Inpatient (IN) | payer MEDICARE, BC ==
[2017-01-15] MEDS ORDERED: IPRATROPIUM 0.5 MG/2.5 ML NEBU INHALATION STA (22:14)
[2017-01-15] MEDS ORDERED: LEVOFLOXACIN 750MG-D5W PMX 750 MG in DEXTROSE/WATER 1 150ML.BAG IVPB STA (22:14)
[2017-01-15] MEDS ORDERED: ALBUTEROL NEBULIZED 2.5 MG/3 ML INHALATION STA (22:14)
[2017-01-15] MEDS ORDERED: SODIUM CHLORIDE 0.9% 1,000 ML IV STA ×2 (22:14)
[2017-01-15] MEDS ORDERED: ACETAMINOPHEN IV (For NPO) 1,000 MG in EMPTY BAG 1 BAG IVPB STA (22:15)
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
[2017-01-15 22:23] LABS: Basophils % (A) 0 %; CH 34.3; CHCM 34.3; Eosinophils # (A) 0.2 k/uL (0-0.7); Eosinophils % (A) 3 %; HCT 39.9 % (39.0-53.0); Luc # (Auto) 0.07; Luc % (Auto) 1; Lymphocytes # (A) 1.8 k/uL (1.0-4.8); Lymphocytes % (A) 27 %; MCH 33.9 pg (25.0-35.0); MCHC 33.7 g/dL (31.0-37.0); Macrocytosis Slight; Mean Platelet Volume 7.8; Monocytes # (A) 0.3 k/uL (0-1.0); Monocytes % (A) 5 %; Neutrophils # (A) 4.1 k/uL (1.3-7.7); Neutrophils % (A) 64 %; RBC 3.97 m/uL (4.30-5.90); RDW 13.9 % (11.5-15.5); WBC 6.5 k/uL (3.8-10.6); WBC (Perox) 6.98
[2017-01-15 22:27] LABS: HGB 13.4 gm/dL (13.0-17.5); MCV 100.5 fL (80.0-100.0)
[2017-01-15] MEDS ORDERED: LORazepam 2 MG/ML INJ IV STA (22:32)
[2017-01-15] MEDS ORDERED: diphenhydrAMINE 50 MG/ML 1 ML VIAL IVP STA (22:32)
[2017-01-15] MEDS ORDERED: KETOROLAC 30 MG/ML 1 ML VIAL IVP STA (22:32)
[2017-01-15] MEDS ORDERED: MORPHINE SULFATE 2 MG/ML SYRINGE IVP STA (22:33)
[2017-01-15] MEDS ORDERED: CEFEPIME 2 GM in SODIUM CHLORIDE 0.9% 50 ML IVPB STA (22:33)
[2017-01-15 22:34] LABS: INR 0.9 (<1.2); Partial Thromboplastin Time 26.8 sec (22.0-30.0); Prothrombin Time 9.7 sec (9.0-12.0)
[2017-01-15 22:39] LABS: ALT 24 U/L (21-72); AST 12 U/L (17-59); Alkaline Phosphatase 81 U/L (38-126); Anion Gap 12 mmol/L; Blood Urea Nitrogen 10 mg/dL (9-20); Calcium 8.7 mg/dL (8.4-10.2); Carbon Dioxide 21 mmol/L (22-30); Chloride 109 mmol/L (98-107); Glucose 142 mg/dL (74-99); Magnesium 1.8 mg/dL (1.6-2.3); Non-African American GFR(MDRD) >60 (>60 ml/min/1.73 sqM); Potassium 3.2 mmol/L (3.5-5.1); Sodium 142 mmol/L (137-145); Total Bilirubin 0.3 mg/dL (0.2-1.3); Total Protein 5.5 g/dL (6.3-8.2)
[2017-01-15 22:42] LABS: Creatine Kinase 32 U/L (55-170)
[2017-01-15 22:55] LABS: Creatine Kinase MB 0.6 ng/mL (0.0-2.4); Troponin I <0.012 ng/mL (0.000-0.034)
[2017-01-15] MEDS ORDERED: PNEUMONIA PROTOCOL UTILIZED 1 EACH MISC PO PRN (23:42)
--- NOTE | 2017-01-15 23:46 | XR ---
EXAM: XR Chest, 2 Views CLINICAL HISTORY: Difficulty breathing TECHNIQUE: Frontal and lateral views of the chest. COMPARISON: 12/20/2016. FINDINGS: Lungs: The heart is mildly more prominent on this study than the prior. Mild hazy prominence of the interstitial markings with mild peribronchial cuffing. Findings suggestive of mild CHF/pulmonary edema. Bibasilar atelectasis and/or infiltrates, similar to prior study. Pleural space: Unremarkable. No pneumothorax. No significant pleural effusion. Heart: As above. Mediastinum: Tortuous descending aorta is again seen. Bones/joints: Osseous structures are unchanged. IMPRESSION: 1. The heart is mildly more prominent on this study than the prior. Mild hazy prominence of the interstitial markings with mild peribronchial cuffing. Findings suggestive of mild CHF/pulmonary edema. Correlate clinically. 2. Bibasilar atelectasis and/or infiltrates, similar to prior study.
[2017-01-16] MEDS: POTASSIUM CHLORIDE 10 MEQ, LIDOCAINE 2% INJ 10 MG in SODIUM CHLORIDE 0.9% 100 ML IVPB SCH ×4 (02:06→18:40)
[2017-01-16] MEDS: AZTREONAM 2 GM in SODIUM CHLORIDE 0.9% 100 ML IVPB SCH ×3 (03:25→16:08)
[2017-01-16] MEDS: IPRATROPIUM-ALBUTEROL 3 ML NEB INHALATION SCH ×6 (05:16→23:54)
[2017-01-16] MEDS: ENOXAPARIN 40 MG/0.4 ML SYRINGE SQ SCH (08:21)
[2017-01-16] MEDS ORDERED: IPRATROPIUM-ALBUTEROL 3 ML NEB INHALATION PRN (12:13)
[2017-01-16] MEDS: methylPREDNISolone SOD SUCCI 40 MG/ML 1 ML VIAL IV SCH (13:38)
--- NOTE | 2017-01-16 13:40 | HP ---
HISTORY AND PHYSICAL DATE OF ADMISSION: 01/15/17 PRESENTING COMPLAINT: Cough, short of breath. HISTORY OF PRESENTING COMPLAINT: This is a pleasant 81-year-old patient with rather extensive medical history. Chronic stable medical conditions include GERD, hypertension, BPH, rheumatoid arthritis, home oxygen 2 L, diverticulosis, restless legs syndrome, Alzheimer's dementia and has got a pain pump. Patient as far as pain, follows with Dr. Hilliard. The patient has underlying COPD. Patient presents with worsening short of breath, cough, congestion, bringing up sputum, decreased appetite, run down. Tired. At her baseline. Patient uses a walker. REVIEW OF SYSTEMS: Constitutional: Fever, tired. HEENT as above. Congested. Respiratory as above. Cardiovascular as above: GASTROINTESTINAL: Heartburn. Genitourinary: None. MUSCULOSKELETAL: Pain in different joints. Dermatological and hematologic, lymphatic none. Psychiatry forgetful. Neurological restless legs. PAST MEDICAL HISTORY: COPD, GERD, hypertension, hyperlipidemia, BPH, rheumatoid arthritis, hypothyroid. Home oxygen. Diverticulosis. Alzheimer's, restless legs syndrome. Chronic pain syndrome. PAST SURGICAL HISTORY: Cardiac catheterization, right eye lens implant, bilateral foot surgery. Repair of left index finger. Bilateral rotator cuff repair. Pain pump. SOCIAL HISTORY: Lives with his daughter. Uses a walker. Smoked a pack a day for 11 years. Stopped in 1962. Alcohol occasionally. FAMILY HISTORY: TB and cirrhosis. HOME MEDICATIONS: 1. Trazodone 150 mg q.h.s. p.r.n. 2. Requip 0.5 p.o. q.h.s. 3. Percocet 10 1 tab p.o. q.h.s. p.r.n. 4. Benadryl 25 mg p.o. q.h.s. 5. Flomax 0.4 mg p.o. q.h.s. 6. Senokot 8.6 mg p.o. q.h.s. 7. Zantac 300 mg p.o. q.h.s. 8. Omeprazole 40 mg p.o. q.h.s. 9. Morphine pain pump. 10.Synthroid 125 mcg p.o. q.h.s. 11.Ativan 0.5 p.o. q.h.s. 12.Imdur ER 60 mg q.h.s. 13.DuoNeb t.i.d. p.r.n. 14.Gabapentin 800 mg q.h.s. 15.Breo Ellipta 1 puff daily. 16.Aricept 10 mg q.h.s. 17.Mycelex [place] 10 mg t.i.d. 18.Lipitor 20 mg p.o. q.h.s. ALLERGIES: IV CONTRAST AND PENICILLIN. PHYSICAL EXAMINATION: On examination, vital signs on presentation: Temperature 100.6, pulse 127, respiration 25, blood pressure 130/74, pulse ox 86% room air. General appearance BMI 30.5, lying in bed, very tired-appearing. Eyes pupils equal. Conjunctivae normal. Oral cavity normal. NECK: JVD not raised. Mass not palpable. RESPIRATORY: Effort increased. Lungs diminished breath sounds. Prolonged expiratory wheezing. Some scattered crackles. Cardiovascular first and second sounds normal. No edema. Abdomen soft, nontender. Liver and spleen not palpable. The pain pump at present. Lymphatics: No lymph nodes palpable in neck or axillae. PSYCHIATRY: Alert and oriented x3. Mood and affect slightly anxious-appearing. NEUROLOGICAL: Pupils equal. Cranial nerves grossly intact. Power and sensation grossly intact. INVESTIGATIONS: White count 6.5, hemoglobin 13.4, potassium 3.2, BUN and creatinine is normal. Chest x- ray shows some peribronchial cuffing. ASSESSMENT: 1. Acute chronic obstructive pulmonary disease exacerbation in an ex-smoker. Probably from a viral pneumonitis cannot rule out bacterial component. 2. Gastroesophageal reflux disease. 3. Essential hypertension. 4. Hyperlipidemia. 5. Benign prostatic hypertrophy. 6. Chronic rheumatoid arthritis. 7. Hypothyroid. 8. Chronic hypoxic respiratory failure from chronic obstructive pulmonary disease. 9. Colonic diverticulosis. 10.Alzheimer's dementia late onset type. 11.Restless legs syndrome. 12.Gait dysfunction, uses a walker. 13.Chronic pain syndrome uses the pain pump. PLAN: Home medications will be resumed. Patient is put on nebulized bronchodilators. We will also put the patient on IV Solu-Medrol, IV antibiotics. Care was discussed with the patient. Questions were answered. Copy to Dr. Elkins. [email or web address] / ABUNDION: [id number] /
[2017-01-16] MEDS: MORPHINE SULFATE 2 MG/ML SYRINGE IVP PRN ×3 (13:49→22:53)
[2017-01-16] MEDS ORDERED: NON-FORMULARY DRUG (Morphine Pain Pump 1 DOSE) INTRATHECA SCH (14:15)
[2017-01-16 14:24] LABS: Hemoglobin A1C 5.5 % (4.2-6.1)
[2017-01-16] MEDS: INSULIN LISPRO (humaLOG) 300 UNIT/3 ML VIAL SQ SCH ×2 (18:49→20:46)
[2017-01-16] MEDS: CLOTRIMAZOLE TROCHE 10 MG TROCHE MUCOUS MEM SCH ×2 (19:40→20:47)
[2017-01-16] MEDS: diphenhydrAMINE 25 MG CAP PO SCH (20:44)
[2017-01-16] MEDS: ISOSORBIDE MONONITRATE ER 60 MG TAB.ER.24H PO SCH (20:44)
[2017-01-16] MEDS: DONEPEZIL 10 MG TAB PO SCH (20:44)
[2017-01-16] MEDS: GABAPENTIN 400 MG CAP PO SCH (20:44)
[2017-01-16] MEDS: LORazepam 0.5 MG TAB PO SCH (20:44)
[2017-01-16] MEDS: ATORVASTATIN 20 MG TAB PO SCH (20:44)
[2017-01-16] MEDS: FAMOTIDINE 20 MG TAB PO SCH (20:45)
[2017-01-16] MEDS: traZODone HCL 50 MG TAB PO PRN (20:45)
[2017-01-16] MEDS: PANTOPRAZOLE 40 MG TABLET PO SCH (20:46)
[2017-01-16] MEDS: TAMSULOSIN 0.4 MG CAP.ER.24H PO SCH (20:46)
[2017-01-16] MEDS: LEVOTHYROXINE 75 MCG TAB PO SCH (20:46)
[2017-01-16] MEDS: LEVOTHYROXINE 100 MCG TAB PO SCH (20:46)
[2017-01-16] MEDS: SENNOSIDES 8.6 MG TAB PO SCH (20:47)
[2017-01-16 20:59] LABS: Glucose,Whole Blood 129 mg/dL (75-99)
[2017-01-16] MEDS ORDERED: LEVOFLOXACIN 750MG-D5W PMX 750 MG in DEXTROSE/WATER 1 150ML.BAG IVPB SCH (23:00)
[2017-01-17] MEDS: AZTREONAM 2 GM in SODIUM CHLORIDE 0.9% 100 ML IVPB SCH ×4 (01:14→23:28)
[2017-01-17] MEDS: methylPREDNISolone SOD SUCCI 40 MG/ML 1 ML VIAL IV SCH ×4 (01:14→23:31)
[2017-01-17] MEDS: IPRATROPIUM-ALBUTEROL 3 ML NEB INHALATION SCH ×6 (03:20→20:58)
[2017-01-17] MEDS: MORPHINE SULFATE 2 MG/ML SYRINGE IVP PRN ×3 (04:19→19:13)
[2017-01-17 07:53] LABS: Glucose,Whole Blood 136 mg/dL (75-99)
[2017-01-17] MEDS: ENOXAPARIN 40 MG/0.4 ML SYRINGE SQ SCH (08:01)
[2017-01-17] MEDS: CLOTRIMAZOLE TROCHE 10 MG TROCHE MUCOUS MEM SCH ×3 (08:01→23:30)
[2017-01-17] MEDS: INSULIN LISPRO (humaLOG) 300 UNIT/3 ML VIAL SQ SCH ×4 (08:05→22:53)
[2017-01-17 08:21] LABS: Basophils % (A) 0 %; CH 33.7; CHCM 33.1; Eosinophils % (A) 0 %; HCT 39.5 % (39.0-53.0); HDW 2.67; Luc # (Auto) 0.01; Luc % (Auto) 0; Lymphocytes # (A) 0.4 k/uL (1.0-4.8); Lymphocytes % (A) 5 %; MCH 33.8 pg (25.0-35.0); MCV 102.5 fL (80.0-100.0); Macrocytosis Slight; Mean Platelet Volume 7.9; Monocytes # (A) 0.2 k/uL (0-1.0); Monocytes % (A) 2 %; Neutrophils % (A) 93 %; RBC 3.85 m/uL (4.30-5.90); RDW 14.1 % (11.5-15.5); WBC 7.5 k/uL (3.8-10.6)
[2017-01-17] MEDS: SYMBICORT 80-4.5 MCG INHALER INHALATION SCH ×2 (08:27→20:58)
[2017-01-17 08:32] LABS: Anion Gap 7 mmol/L; Blood Urea Nitrogen 16 mg/dL (9-20); Calcium 8.6 mg/dL (8.4-10.2); Carbon Dioxide 22 mmol/L (22-30); Chloride 110 mmol/L (98-107); Glucose 128 mg/dL (74-99); Non-African American GFR(MDRD) >60 (>60 ml/min/1.73 sqM); Potassium 4.8 mmol/L (3.5-5.1); Sodium 139 mmol/L (137-145)
[2017-01-17 11:44] LABS: Glucose,Whole Blood 146 mg/dL (75-99)
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
[2017-01-17 17:52] LABS: Glucose,Whole Blood 140 mg/dL (75-99)
--- NOTE | 2017-01-17 18:30 | P.PN ---
Progress Note - Text Progress Note Date: 01/17/17 DATE OF SERVICE: 01/17/2017 PRESENTING COMPLAINT: cough, short of breath HISTORY OF PRESENT ILLNESS: 81-year-old male presents with worsening shortness of breath cough congestion bringing up sputum decreased appetite and rundown. Patient uses a walker at baseline is admitted acute COPD exacerbation.. INTERVAL HISTORY: 01/17/2017: Patient seen in follow-up, no acute overnight events, lying in bed appears comfortable does complain about difficulty swallowing, states he's been a unable to eat sandwiches or firm type foods, can only eat soft foods. Speech therapy came to evaluate the patient for this. Has a coarse cough with sputum production which is green-yellow. Tolerating his diet, ambulatory with some assistance and walker. REVIEW OF SYSTEMS: Done for constitutional ,cardiovascular, GI, pulmonary with relevant findings as above. CURRENT MEDICATIONS DuoNeb's, Lipitor 20 mg by mouth at bedtime, aztreonam 2 g IV piggyback, clotrimazole, Benadryl 25 mg by mouth at bedtime, Aricept 10 mg by mouth at bedtime, Lovenox 40 mg subcu daily,gabapentin 800 mg by mouth at bedtime, Imdur 60 mg by mouth at bedtime, Levaquin 750 mg by mouth at bedtime, Synthroid 100 micrograms by mouth at bedtime, 75 micrograms Synthroid by mouth at bedtimeAtivan half a milligram by mouth daily when necessary, Ativan half a milligram by mouth at at bedtime,Solu-Medrol 40 mg IV every 8 hours,rRequip, 0.5 mg by mouth at bedtime, tamsulosin 0.4 mg by mouth at bedtime, trazodone 150 mg by mouth at bedtime, PHYSICAL EXAM VITAL SIGNS: Temperature 98.7, pulse 86, respirations 16, blood pressure 107/54, oxygen saturation 96% on 2 L. GENERAL APPEARANCE: Lying in bed, anxious appearing. EYES: Pupils equal. Conjunctiva normal. NECK: JVD not raised. Mass not palpable. RESPIRATORY: Respiratory effort increased. Lungs scattered crackles to coarse rhonchi bilaterallyto auscultation. CARDIOVASCULAR: First and second sounds normal. No edema. ABDOMEN: Soft. Liver and spleen not palpable. No tenderness. No mass palpable. pain pump noted PSYCHIATRY: Alert and oriented x3. Mood and affect somewhat anxious appearing INVESTIGATIONS: platelet count 135, chloride 110, Accu-Cheks noted. ASSESSMENT: -acute chronic obstructive pulmonary disease exacerbation and an ex-smoker, probably from viral pneumonitis cannot rule out bacterial component. -Gastroesophageal reflux disease. -Essential hypertension. -Hyperlipidemia. -Benign prostatic hypertrophy. -Chronic rheumatoid arthritis, in multiple joints bilateral. -Hypothyroidism. -Chronic hypoxic respiratory failure from chronic obstructive pulmonary disease. -Colonic diverticulosis. -Alzheimer's dementia late onset type. - restless leg syndrome. -Gait dysfunction uses walker. -Chronic pain syndrome uses pain pump. PLAN: continue nebulized bronchodilators IV Solu-Medrol, IV antibiotics. pulmonology consulted await further input. Speech evaluation was normal no new recommendations. plan of care discussed at the bedside with the patient is in agreement. Will follow closely. TELEPHONE OPERATOR RECEPTIONIST statement: Patient was seen and examined by nurse practitioner Risa Booker and all elements of the case discussed with attending Dr. Barajas
[2017-01-17] MEDS: DONEPEZIL 10 MG TAB PO SCH (20:05)
[2017-01-17] MEDS: FAMOTIDINE 20 MG TAB PO SCH (20:05)
[2017-01-17] MEDS: ATORVASTATIN 20 MG TAB PO SCH (20:05)
[2017-01-17] MEDS: GABAPENTIN 400 MG CAP PO SCH (20:05)
[2017-01-17] MEDS: LEVOTHYROXINE 75 MCG TAB PO SCH (20:06)
[2017-01-17] MEDS: PANTOPRAZOLE 40 MG TABLET PO SCH (20:06)
[2017-01-17] MEDS: LEVOTHYROXINE 100 MCG TAB PO SCH (20:06)
[2017-01-17] MEDS: SENNOSIDES 8.6 MG TAB PO SCH (20:06)
[2017-01-17] MEDS: ISOSORBIDE MONONITRATE ER 60 MG TAB.ER.24H PO SCH (20:06)
[2017-01-17] MEDS: TAMSULOSIN 0.4 MG CAP.ER.24H PO SCH (20:07)
[2017-01-17] MEDS: LORazepam 0.5 MG TAB PO SCH (20:14)
[2017-01-17] MEDS: LEVOFLOXACIN 750 MG TAB PO SCH (20:14)
[2017-01-17] MEDS: diphenhydrAMINE 25 MG CAP PO SCH (20:14)
[2017-01-17 21:09] LABS: Glucose,Whole Blood 124 mg/dL (75-99)
[2017-01-17] MEDS: traZODone HCL 50 MG TAB PO PRN (23:29)
[2017-01-18] MEDS: MORPHINE SULFATE 2 MG/ML SYRINGE IVP PRN ×4 (01:17→22:03)
[2017-01-18] MEDS: IPRATROPIUM-ALBUTEROL 3 ML NEB INHALATION SCH ×5 (05:40→19:43)
--- NOTE | 2017-01-18 06:19 | PN ---
PROGRESS NOTE DATE OF SERVICE: 01/17/17. ATTENDING NOTE: This patient seen and examined by me. I discussed with nurse practitioner, Ms. Booker. This is a patient with COPD admitted with acute tracheal bronchitis, COPD exacerbation. Still has some cough and wheezing. Some sputum production. The patient as an outpatient is being worked up for dysphagia, having some trouble with solids. A lot of the workup has already been done as an outpatient. PHYSICAL EXAMINATION: On examination, afebrile, blood pressure 89/50, pulse ox 94%. LUNGS: Decreased breath sounds. No expiratory wheezing. CARDIOVASCULAR: First and second sounds normal. INVESTIGATIONS: White count 7.5, potassium 4.80. Sputum culture pending. ASSESSMENT: 1. Acute chronic obstructive pulmonary disease exacerbation with probably viral pneumonitis or tracheobronchitis. 2. Dysphagia. Outpatient workup in place. PLAN: Continue medication and treatment plan. Patient is slow to respond. Pulmonary was consulted. Care was discussed with the patient remains on IV Solu-Medrol. MMODL / IJN: [id number] /
[2017-01-18 07:36] LABS: Glucose,Whole Blood 158 mg/dL (75-99)
[2017-01-18] MEDS: SYMBICORT 80-4.5 MCG INHALER INHALATION SCH ×2 (08:29→19:42)
[2017-01-18] MEDS: INSULIN LISPRO (humaLOG) 300 UNIT/3 ML VIAL SQ SCH ×4 (08:29→20:46)
[2017-01-18] MEDS: methylPREDNISolone SOD SUCCI 40 MG/ML 1 ML VIAL IV SCH (08:31)
[2017-01-18] MEDS: AZTREONAM 2 GM in SODIUM CHLORIDE 0.9% 100 ML IVPB SCH ×2 (08:31→15:53)
[2017-01-18] MEDS: ENOXAPARIN 40 MG/0.4 ML SYRINGE SQ SCH (08:32)
[2017-01-18] MEDS: CLOTRIMAZOLE TROCHE 10 MG TROCHE MUCOUS MEM SCH ×3 (08:32→20:43)
[2017-01-18 11:26] LABS: Glucose,Whole Blood 175 mg/dL (75-99)
--- NOTE | 2017-01-18 11:31 | P.PN ---
Subjective Progress Note Date: 01/18/17 History of present illness: This is a very pleasant 81-year-old gentleman who follows with Dr. Elkins as his primary care physician. He has a history of hypertension and hypothyroidism hyperlipidemia. He also has a remote history of smoking. 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 Diaz in our office for the same. She was hospitalized twice this year for an acute COPD exacerbation. This is his third admission to the hospital. He came in with worsening shortness of breath suspecting pneumonia. Chest x-ray is free of any acute consolidation airspace disease. He is typically on 2 L of oxygen by nasal cannula. He's been utilizing his DuoNeb neb treatments at least 3-4 times a day. He has been in and out and has been exposed to radiation in temperature and humidity. He comes in with typical acute COPD exacerbation for now. No pleurisy. No hemoptysis. He was producing some limited amount of sputum. His chest wall was sore special with coughing and deep breathing. The patient has been having difficulties with swallowing and he has undergone a recent evaluation including an swallow evaluation that came back within normal limits. During his most recent hospitalization the patient and a computed tomography scan of the chest that showed no acute abnormalities. The patient also had a Lexiscan cardiac stress test that showed no evidence of any reversible ischemia On 01/18/2017 the patient is still having difficulty breathing. He has a congested cough. Still is producing some sputum in the sputum was sent for cultures and the cultures and sensitivities are still pending for now. No much improvement since yesterday. No angina. No aspiration. He is also limited with a dose of 40 mg every 8 hours. He is also on a combination of Levaquin and aztreonam. He is on broad without it is around the clock. No change in mental status. No fever. No chills. No signs of septicemia. No other significant events overnight. Objective - Vital Signs Vital signs: Vital Signs Temp 97.8 F 01/18/17 07:00 Pulse 77 01/18/17 08:43 Resp 16 01/18/17 08:57 BP 104/56 01/18/17 07:00 Pulse Ox 97 01/18/17 07:00 Intake & Output 10/09/17 10/10/17 10/10/17 18:59 06:59 18:59 Output Total 300 1075 Balance -300 -1075 Weight 88.5 kg 90.5 kg Output: Urine 300 1075 Other: Voiding Method Urinal Urinal - Exam Head exam was generally normal. There was no scleral icterus or corneal arcus. Mucous membranes were moist.Neck was supple and without jugular venous distension, thyromegaly, or carotid bruits. Carotids were easily palpable bilaterally. There was no adenopathy. Lungs are diminished breath sound bilaterally along with diffuse expiratory wheezes throughout the lung levi and there is pronation of the extremities of breathing.Cardiac exam revealed the PMI to be normally situated and sized. The rhythm was regular and no extrasystoles were noted during several minutes of auscultation. The first and second heart sounds were normal and physiologic splitting of the second heart sound was noted. There were no murmurs, rubs, clicks, or gallops.Abdominal exam revealed normal bowel sounds. The abdomen was soft, non-tender, and without masses, organomegaly, or appreciable enlargement of the abdominal aorta.Examination of the extremities revealed easily palpable radial, femoral and pedal pulses. There was no cyanosis, clubbing or edema.Examination of the skin revealed no evidence of significant rashes, suspicious appearing nevi or other concerning lesions. Neurologically the patient is awake and alert and there is no focal neurological deficit. Muscular 7 exam shows no evidence of any acute arthritis and joint deformities. - Labs CBC & Chem 7: 01/17/17 07:20 01/17/17 07:20 Labs: Abnormal Lab Results - Last 24 Hours (Table) 01/17/17 01/17/17 01/17/17 Range/Units 11:24 17:39 20:23 POC Glucose (mg/dL) 146 H 140 H 124 H (75-99) mg/dL 01/18/17 01/18/17 Range/Units 07:33 11:24 POC Glucose (mg/dL) 158 H 175 H (75-99) mg/dL Microbiology - Last 24 Hours (Table) 01/15/17 22:03 Blood Culture - Preliminary Blood No Growth after 48 hours 01/17/17 04:25 Gram Stain - Preliminary Sputum Assessment and Plan Plan: Impression: #1 Acute exacerbation of severe oxygen dependent chronic obstructive pulmonary disease, complicated by tracheobronchitis. There is no evidence of pneumonia based on the most recent CAT scan findings and based most recent chest x-ray findings. Patient has advanced COPD and he is oxygen dependent for many years and he has chronic hypoxic respiratory failure. He has been maintained on Breo as maintenance on outpatient basis. #2 Hypertension. #3 Hyperlipidemia. #4 Hypothyroidism. #5 Rheumatoid arthritis. #6 Benign prostatic hypertrophy. #7 History of shingles. #8 recent evaluation for dyspnea and the workup has been negative. PLAN The patient is essentially unchanged. He still having difficulty breathing and his COPD is still exacerbating and the patient is symptomatic. For that reason , I will increase his IV Solu Medrol to 60 mg every 8 hours. Continue antibiotics. Continue bronchodilators. Awaiting sputum Gram stain and culture results. We'll continue to follow and anticipate some improvement at least over the next 24 hours.
[2017-01-18] MEDS: LORazepam 0.5 MG TAB PO PRN (11:46)
[2017-01-18] MEDS: methylPREDNISolone SOD SUCCI 125 MG/2 ML VIAL IV SCH ×2 (11:48→17:25)
[2017-01-18 17:17] LABS: Glucose,Whole Blood 122 mg/dL (75-99)
[2017-01-18] MEDS: LEVOTHYROXINE 75 MCG TAB PO SCH (20:42)
[2017-01-18] MEDS: FAMOTIDINE 20 MG TAB PO SCH (20:42)
[2017-01-18] MEDS: ISOSORBIDE MONONITRATE ER 60 MG TAB.ER.24H PO SCH (20:42)
[2017-01-18] MEDS: PANTOPRAZOLE 40 MG TABLET PO SCH (20:42)
[2017-01-18] MEDS: LEVOTHYROXINE 100 MCG TAB PO SCH (20:42)
[2017-01-18] MEDS: TAMSULOSIN 0.4 MG CAP.ER.24H PO SCH (20:43)
[2017-01-18] MEDS: ATORVASTATIN 20 MG TAB PO SCH (20:43)
[2017-01-18] MEDS: SENNOSIDES 8.6 MG TAB PO SCH (20:43)
[2017-01-18] MEDS: GABAPENTIN 400 MG CAP PO SCH (20:43)
[2017-01-18] MEDS: DONEPEZIL 10 MG TAB PO SCH (20:43)
[2017-01-18] MEDS: LEVOFLOXACIN 750 MG TAB PO SCH (20:46)
[2017-01-18] MEDS: LORazepam 0.5 MG TAB PO SCH (20:51)
[2017-01-18] MEDS: diphenhydrAMINE 25 MG CAP PO SCH (20:51)
[2017-01-18 21:02] LABS: Glucose,Whole Blood 114 mg/dL (75-99)
--- NOTE | 2017-01-18 22:58 | PN ---
PROGRESS NOTE ATTENDING NOTE: This patient was seen and examined by me. I discussed the case with my nurse practitioner, Ms. Booker. This patient was admitted with COPD exacerbation and tracheobronchitis. Patient is eating rather well now; had his oatmeal. Some wheezing and cough is present. IV Solu- Medrol was increased by Pulmonary. PHYSICAL EXAMINATION: LUNGS: Decreased breath sounds. Expiratory wheezing. LABS: Accu-Cheks are noted. ASSESSMENT: Acute severe chronic obstructive pulmonary disease exacerbation and tracheobronchitis, slow to respond. PLAN: Continue with IV Solu-Medrol. Discontinue the IV antibiotics. Switch to p.o. Ceftin. Care was discussed with the patient. [id number] / IJN: [id number] /
[2017-01-19] MEDS: methylPREDNISolone SOD SUCCI 125 MG/2 ML VIAL IV SCH ×4 (00:18→16:55)
[2017-01-19] MEDS: IPRATROPIUM-ALBUTEROL 3 ML NEB INHALATION PRN (04:18)
[2017-01-19] MEDS: MORPHINE SULFATE 2 MG/ML SYRINGE IVP PRN ×3 (06:28→19:43)
[2017-01-19] MEDS: IPRATROPIUM-ALBUTEROL 3 ML NEB INHALATION SCH ×4 (07:22→20:11)
[2017-01-19] MEDS: SYMBICORT 80-4.5 MCG INHALER INHALATION SCH ×2 (07:23→20:11)
[2017-01-19 07:29] LABS: Glucose,Whole Blood 152 mg/dL (75-99)
[2017-01-19] MEDS: CLOTRIMAZOLE TROCHE 10 MG TROCHE MUCOUS MEM SCH ×3 (07:37→20:19)
[2017-01-19] MEDS: CEFUROXIME 250 MG TAB PO SCH ×2 (07:37→20:19)
[2017-01-19] MEDS: ENOXAPARIN 40 MG/0.4 ML SYRINGE SQ SCH (07:37)
[2017-01-19] MEDS: INSULIN LISPRO (humaLOG) 300 UNIT/3 ML VIAL SQ SCH ×4 (07:37→22:36)
[2017-01-19 08:30] LABS: Basophils % (A) 0 %; CHCM 31.7; Eosinophils % (A) 0 %; HCT 38.9 % (39.0-53.0); HGB 12.3 gm/dL (13.0-17.5); Luc # (Auto) 0.04; Luc % (Auto) 1; Lymphocytes # (A) 0.5 k/uL (1.0-4.8); Lymphocytes % (A) 6 %; MCH 33.2 pg (25.0-35.0); MCHC 31.7 g/dL (31.0-37.0); MCV 104.9 fL (80.0-100.0); Macrocytosis Slight; Mean Platelet Volume 7.2; Monocytes # (A) 0.3 k/uL (0-1.0); Monocytes % (A) 3 %; Neutrophils # (A) 7.4 k/uL (1.3-7.7); Neutrophils % (A) 90 %; RBC 3.71 m/uL (4.30-5.90); RDW 13.2 % (11.5-15.5); WBC 8.3 k/uL (3.8-10.6); WBC (Perox) 8.65
[2017-01-19 08:42] LABS: Anion Gap 10 mmol/L; Blood Urea Nitrogen 30 mg/dL (9-20); Calcium 8.6 mg/dL (8.4-10.2); Carbon Dioxide 23 mmol/L (22-30); Chloride 107 mmol/L (98-107); Glucose 133 mg/dL (74-99); Non-African American GFR(MDRD) >60 (>60 ml/min/1.73 sqM); Potassium 4.9 mmol/L (3.5-5.1); Sodium 140 mmol/L (137-145)
--- NOTE | 2017-01-19 11:06 | P.PN ---
Subjective Progress Note Date: 01/19/17 History of present illness: This is a very pleasant 81-year-old gentleman who follows with Dr. Elkins as his primary care physician. He has a history of hypertension and hypothyroidism hyperlipidemia. He also has a remote history of smoking. 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 Diaz in our office for the same. She was hospitalized twice this year for an acute COPD exacerbation. This is his third admission to the hospital. He came in with worsening shortness of breath suspecting pneumonia. Chest x-ray is free of any acute consolidation airspace disease. He is typically on 2 L of oxygen by nasal cannula. He's been utilizing his DuoNeb neb treatments at least 3-4 times a day. He has been in and out and has been exposed to radiation in temperature and humidity. He comes in with typical acute COPD exacerbation for now. No pleurisy. No hemoptysis. He was producing some limited amount of sputum. His chest wall was sore special with coughing and deep breathing. The patient has been having difficulties with swallowing and he has undergone a recent evaluation including an swallow evaluation that came back within normal limits. During his most recent hospitalization the patient and a computed tomography scan of the chest that showed no acute abnormalities. The patient also had a Lexiscan cardiac stress test that showed no evidence of any reversible ischemia On 01/18/2017 the patient is still having difficulty breathing. He has a congested cough. Still is producing some sputum in the sputum was sent for cultures and the cultures and sensitivities are still pending for now. No much improvement since yesterday. No angina. No aspiration. He is also limited with a dose of 40 mg every 8 hours. He is also on a combination of Levaquin and aztreonam. He is on broad without it is around the clock. No change in mental status. No fever. No chills. No signs of septicemia. No other significant events overnight. On 01/19/2017 the patient is not showing any signs of improvement. He still cough and out copious amount of purulent respiratory secretions. His bronchospastic and wheezy. Cultures from the sputum has been negative. He is on Ceftin orally. He is also on IV Solu-Medrol high-dose. On and off is having skeletal chest wall pain and burning in his chest related to his acute COPD exacerbation. No fever. No chills. No change in mental status. He has gained around 20 half pounds over the past 24 hours probably rates to fluids. Objective - Vital Signs Vital signs: Vital Signs Temp 98.0 F 01/19/17 07:00 Pulse 84 01/19/17 08:00 Resp 16 01/19/17 08:00 BP 113/71 01/19/17 07:00 Pulse Ox 94 L 01/19/17 07:00 Intake & Output 01/18/17 01/19/17 01/19/17 18:59 06:59 18:59 Intake Total 480 670 Output Total 200 Balance 480 670 -200 Weight 92.5 kg Intake: Oral 480 670 Output: Urine 200 Other: Voiding Method Urinal Urinal Urinal # Voids 2 3 - Exam Head exam was generally normal. There was no scleral icterus or corneal arcus. Mucous membranes were moist.Neck was supple and without jugular venous distension, thyromegaly, or carotid bruits. Carotids were easily palpable bilaterally. There was no adenopathy. Lungs are diminished breath sound bilaterally along with diffuse expiratory wheezes throughout the lung levi and there is pronation of the extremities of breathing.Cardiac exam revealed the PMI to be normally situated and sized. The rhythm was regular and no extrasystoles were noted during several minutes of auscultation. The first and second heart sounds were normal and physiologic splitting of the second heart sound was noted. There were no murmurs, rubs, clicks, or gallops.Abdominal exam revealed normal bowel sounds. The abdomen was soft, non-tender, and without masses, organomegaly, or appreciable enlargement of the abdominal aorta.Examination of the extremities revealed easily palpable radial, femoral and pedal pulses. There was no cyanosis, clubbing or edema.Examination of the skin revealed no evidence of significant rashes, suspicious appearing nevi or other concerning lesions. Neurologically the patient is awake and alert and there is no focal neurological deficit. Muscular 7 exam shows no evidence of any acute arthritis and joint deformities. - Labs CBC & Chem 7: 01/19/17 07:27 01/19/17 07:27 Labs: Abnormal Lab Results - Last 24 Hours (Table) 01/18/17 01/18/17 01/18/17 Range/Units 11:24 17:07 20:42 RBC (4.30-5.90) m/uL Hgb (13.0-17.5) gm/dL Hct (39.0-53.0) % MCV (80.0-100.0) fL Plt Count (150-450) k/uL Lymphocytes # (1.0-4.8) k/uL BUN (9-20) mg/dL Glucose (74-99) mg/dL POC Glucose (mg/dL) 175 H 122 H 114 H (75-99) mg/dL 01/19/17 01/19/17 01/19/17 Range/Units 07:24 07:27 07:27 RBC 3.71 L (4.30-5.90) m/uL Hgb 12.3 L (13.0-17.5) gm/dL Hct 38.9 L (39.0-53.0) % MCV 104.9 H (80.0-100.0) fL Plt Count 145 L (150-450) k/uL Lymphocytes # 0.5 L (1.0-4.8) k/uL BUN 30 H (9-20) mg/dL Glucose 133 H (74-99) mg/dL POC Glucose (mg/dL) 152 H (75-99) mg/dL Microbiology - Last 24 Hours (Table) 01/17/17 04:25 Gram Stain - Final Sputum Sputum Culture - Final 01/15/17 22:03 Blood Culture - Preliminary Blood No Growth after 72 hours Assessment and Plan Plan: Impression: #1 Acute exacerbation of severe oxygen dependent chronic obstructive pulmonary disease, complicated by tracheobronchitis. There is no evidence of pneumonia based on the most recent CAT scan findings and based most recent chest x-ray findings. Patient has advanced COPD and he is oxygen dependent for many years and he has chronic hypoxic respiratory failure. He has been maintained on Breo as maintenance on outpatient basis. #2 Hypertension. #3 Hyperlipidemia. #4 Hypothyroidism. #5 Rheumatoid arthritis. #6 Benign prostatic hypertrophy. #7 History of shingles. #8 recent evaluation for dyspnea and the workup has been negative. PLAN The patient is essentially unchanged. The patient continues to be symptomatic. Continue the bronchodilators and high-dose steroids. Start the patient on Lasix 40 mg every 12 hours and the patient will be given 2 doses of Lasix to optimize the fluid balance push that he has gained around 20 half pounds over the past 24 hours. The collect another sputum Gram stain and culture. Repeat chest x-ray in the morning. Bronchoscopy if no improvement.
[2017-01-19] MEDS: FUROSEMIDE 10 MG/ML 4 ML VIAL IV SCH ×2 (11:19→22:39)
[2017-01-19 11:41] LABS: Glucose,Whole Blood 160 mg/dL (75-99)
--- NOTE | 2017-01-19 15:52 | XR ---
EXAMINATION TYPE: XR chest 2V DATE OF EXAM: 01/19/2017 COMPARISON: Prior chest x-ray 01/15/2017 HISTORY: Difficulty breathing, shortness of breath TECHNIQUE: Frontal and lateral views of the chest are obtained. FINDINGS: There is no focal air space opacity, pleural effusion, or pneumothorax seen. The cardiac silhouette size is stable. The patient is rotated. There is eventration of right hemidiaphragm. The o sseous structures are intact. IMPRESSION: No acute cardiopulmonary process.
[2017-01-19 17:11] LABS: Glucose,Whole Blood 152 mg/dL (75-99)
--- NOTE | 2017-01-19 20:09 | P.PN ---
Progress Note - Text Progress Note Date: 01/18/17 DATE OF SERVICE: 01/18/2017 PRESENTING COMPLAINT: cough, short of breath HISTORY OF PRESENT ILLNESS: 81-year-old male presents with worsening shortness of breath cough congestion bringing up sputum decreased appetite and rundown. Patient uses a walker at baseline is admitted acute COPD exacerbation.. INTERVAL HISTORY: 01/18/2017: Patient seen in follow-up no acute events overnight, lying in bed appears ill coarse cough noted, positive sputum production, green-yellow thick consistency. Tolerating his diet ambulatory with some assistance and a walker. Daughter at the bedside requesting additional dose of Ativan for the patient. 01/17/2017: Patient seen in follow-up, no acute overnight events, lying in bed appears comfortable does complain about difficulty swallowing, states he's been a unable to eat sandwiches or firm type foods, can only eat soft foods. Speech therapy came to evaluate the patient for this. Has a coarse cough with sputum production which is green-yellow. Tolerating his diet, ambulatory with some assistance and walker. REVIEW OF SYSTEMS: Done for constitutional ,cardiovascular, GI, pulmonary with relevant findings as above. CURRENT MEDICATIONS DuoNeb's, Lipitor 20 mg by mouth at bedtime, aztreonam 2 g IV piggyback, clotrimazole, Benadryl 25 mg by mouth at bedtime, Aricept 10 mg by mouth at bedtime, Lovenox 40 mg subcu daily,gabapentin 800 mg by mouth at bedtime, Imdur 60 mg by mouth at bedtime, Levaquin 750 mg by mouth at bedtime, Synthroid 100 micrograms by mouth at bedtime, 75 micrograms Synthroid by mouth at bedtimeAtivan half a milligram by mouth daily when necessary, Ativan half a milligram by mouth at at bedtime,Solu-Medrol 40 mg IV every 8 hours,rRequip, 0.5 mg by mouth at bedtime, tamsulosin 0.4 mg by mouth at bedtime, trazodone 150 mg by mouth at bedtime, PHYSICAL EXAM VITAL SIGNS: Temperature 98.7, pulse 86, respirations 16, blood pressure 107/54, oxygen saturation 96% on 2 L. GENERAL APPEARANCE: Lying in bed, anxious appearing. EYES: Pupils equal. Conjunctiva normal. NECK: JVD not raised. Mass not palpable. RESPIRATORY: Respiratory effort increased. Lungs scattered crackles to coarse rhonchi bilaterally to auscultation. CARDIOVASCULAR: First and second sounds normal. No edema. ABDOMEN: Soft. Liver and spleen not palpable. No tenderness. No mass palpable. pain pump noted PSYCHIATRY: Alert and oriented x3. Mood and affect somewhat anxious appearing INVESTIGATIONS: Accu-Cheks noted ASSESSMENT: -acute chronic obstructive pulmonary disease exacerbation and an ex-smoker, complicated by tracheobronchitis, slow to respond -Gastroesophageal reflux disease. -Essential hypertension. -Hyperlipidemia. -Benign prostatic hypertrophy. -Chronic rheumatoid arthritis, in multiple joints bilateral. -Hypothyroidism. -Chronic hypoxic respiratory failure from chronic obstructive pulmonary disease. -Colonic diverticulosis. -Alzheimer's dementia late onset type. - restless leg syndrome. -Gait dysfunction uses walker. -Chronic pain syndrome uses pain pump. PLAN: continue nebulized bronchodilators to continue IV Solu-Medrol dose increased, IV antibiotics to continue. Sputum culture pending. plan of care discussed at the bedside with the patient is in agreement. Will follow closely. [employer] statement: Patient was seen and examined by nurse practitioner Risa Booker and all elements of the case discussed with attending Dr. Barajas
[2017-01-19] MEDS: ISOSORBIDE MONONITRATE ER 60 MG TAB.ER.24H PO SCH (20:18)
[2017-01-19] MEDS: GABAPENTIN 400 MG CAP PO SCH (20:18)
[2017-01-19] MEDS: LEVOTHYROXINE 100 MCG TAB PO SCH (20:18)
[2017-01-19] MEDS: LORazepam 0.5 MG TAB PO SCH (20:18)
[2017-01-19] MEDS: diphenhydrAMINE 25 MG CAP PO SCH (20:18)
[2017-01-19] MEDS: ATORVASTATIN 20 MG TAB PO SCH (20:18)
[2017-01-19] MEDS: FAMOTIDINE 20 MG TAB PO SCH (20:19)
[2017-01-19] MEDS: PANTOPRAZOLE 40 MG TABLET PO SCH (20:19)
[2017-01-19] MEDS: LEVOTHYROXINE 75 MCG TAB PO SCH (20:19)
[2017-01-19] MEDS: DONEPEZIL 10 MG TAB PO SCH (20:19)
[2017-01-19] MEDS: TAMSULOSIN 0.4 MG CAP.ER.24H PO SCH (20:19)
[2017-01-19] MEDS: SENNOSIDES 8.6 MG TAB PO SCH (20:19)
--- NOTE | 2017-01-19 20:25 | P.PN ---
Progress Note - Text Progress Note Date: 01/19/17 DATE OF SERVICE: 01/19/2017 PRESENTING COMPLAINT: cough, short of breath HISTORY OF PRESENT ILLNESS: 81-year-old male presents with worsening shortness of breath cough congestion bringing up sputum decreased appetite and rundown. Patient uses a walker at baseline is admitted acute COPD exacerbation.. INTERVAL HISTORY: 01/19/2017: Patient seen in follow-up, no overnight events, lying in bed looks better coarse productive cough noted thick green-yellow sputum. Culture sent. Tolerating his diet, ambulatory with some assistance and is walker. Last BM prior to admission 01/18/2017: Patient seen in follow-up no acute events overnight, lying in bed appears ill coarse cough noted, positive sputum production, green-yellow thick consistency. Tolerating his diet ambulatory with some assistance and a walker. Daughter at the bedside requesting additional dose of Ativan for the patient. 01/17/2017: Patient seen in follow-up, no acute overnight events, lying in bed appears comfortable does complain about difficulty swallowing, states he's been a unable to eat sandwiches or firm type foods, can only eat soft foods. Speech therapy came to evaluate the patient for this. Has a coarse cough with sputum production which is green-yellow. Tolerating his diet, ambulatory with some assistance and walker. REVIEW OF SYSTEMS: Done for constitutional ,cardiovascular, GI, pulmonary with relevant findings as above. CURRENT MEDICATIONS DuoNeb's, Lipitor 20 mg by mouth at bedtime, aztreonam 2 g IV piggyback, clotrimazole, Benadryl 25 mg by mouth at bedtime, Aricept 10 mg by mouth at bedtime, Lovenox 40 mg subcu daily,gabapentin 800 mg by mouth at bedtime, Imdur 60 mg by mouth at bedtime, Levaquin 750 mg by mouth at bedtime, Synthroid 100 micrograms by mouth at bedtime, 75 micrograms Synthroid by mouth at bedtime Ativan half a milligram by mouth daily when necessary, Ativan half a milligram by mouth at at bedtime,Solu-Medrol 60 mg IV every 6 hours,rRequip, 0.5 mg by mouth at bedtime, tamsulosin 0.4 mg by mouth at bedtime, trazodone 150 mg by mouth at bedtime, PHYSICAL EXAM VITAL SIGNS: Temperature 98.7, pulse 86, respirations 16, blood pressure 107/54, oxygen saturation 96% on 2 L. GENERAL APPEARANCE: Lying in bed, anxious appearing. EYES: Pupils equal. Conjunctiva normal. NECK: JVD not raised. Mass not palpable. RESPIRATORY: Respiratory effort increased. Lungs a few 6 expiratory wheezing diminished breath sounds to auscultation. CARDIOVASCULAR: First and second sounds normal. No edema. ABDOMEN: Soft. Liver and spleen not palpable. No tenderness. No mass palpable. pain pump noted PSYCHIATRY: Alert and oriented x3. Mood and affect somewhat anxious appearing INVESTIGATIONS: Hemoglobin 12.3, Accu-Cheks noted. Chest x-ray: No acute cardiopulmonary process. ASSESSMENT: -acute chronic obstructive pulmonary disease exacerbation and an ex-smoker, complicated by tracheobronchitis, slow to respond -Gastroesophageal reflux disease. -Essential hypertension. -Hyperlipidemia. -Benign prostatic hypertrophy. -Chronic rheumatoid arthritis, in multiple joints bilateral. -Hypothyroidism. -Chronic hypoxic respiratory failure from chronic obstructive pulmonary disease. -Colonic diverticulosis. -Alzheimer's dementia late onset type. - restless leg syndrome. -Gait dysfunction uses walker. -Chronic pain syndrome uses pain pump. PLAN: continue nebulized bronchodilators to continue IV Solu-Medrol dose increased, IV antibiotics to continue. Sputum culture pending. plan of care discussed at the bedside with the patient is in agreement. Will follow closely. HAY BUCKLER statement: Patient was seen and examined by nurse practitioner Risa Booker and all elements of the case discussed with attending Dr. Barajas
[2017-01-19 20:51] LABS: Glucose,Whole Blood 127 mg/dL (75-99)
[2017-01-19] MEDS ORDERED: POLYETHYLENE GLYCOL 3350 17 GM POWD.PACK PO SCH (21:00)
--- NOTE | 2017-01-19 22:50 | PN ---
PROGRESS NOTE DATE OF SERVICE: 01/19/2017 ATTENDING NOTE: Patient was seen and examined by me. I discussed with nurse practitioner, Stacyrichie. The patient's breathing is much improved, eating actually quite better. Has been trying to get out of bed. EXAMINATION: Afebrile, pulse 84, respirations 16, blood pressure 130/74. LUNGS: Improved air entry. Decreased wheezing. PSYCH: A and O x3. ACTIVITY: White count 8.3. Potassium 4.9. ASSESSMENT: Acute chronic obstructive pulmonary disease exacerbation with acute bronchitis, improving. PLAN: Continue with Solu-Medrol, bronchodilators. Follow with Pulmonary. Cut back on Solu- Medrol. MMODL / IJN: [id number] /
[2017-01-20] MEDS: methylPREDNISolone SOD SUCCI 40 MG/ML 1 ML VIAL IV SCH ×2 (00:33→08:45)
[2017-01-20 07:32] LABS: Glucose,Whole Blood 146 mg/dL (75-99)
[2017-01-20 07:35] LABS: Basophils % (A) 0 %; CH 33.7; CHCM 33.2; Eosinophils % (A) 0 %; HCT 37.2 % (39.0-53.0); HDW 2.46; HGB 11.8 gm/dL (13.0-17.5); Luc # (Auto) 0.07; Luc % (Auto) 1; Lymphocytes # (A) 0.6 k/uL (1.0-4.8); Lymphocytes % (A) 8 %; MCH 32.5 pg (25.0-35.0); MCHC 31.9 g/dL (31.0-37.0); MCV 101.9 fL (80.0-100.0); Macrocytosis Slight; Mean Platelet Volume 7.7; Monocytes # (A) 0.3 k/uL (0-1.0); Monocytes % (A) 4 %; Neutrophils # (A) 6.3 k/uL (1.3-7.7); Neutrophils % (A) 87 %; RBC 3.65 m/uL (4.30-5.90); WBC 7.3 k/uL (3.8-10.6); WBC (Perox) 7.33
[2017-01-20] MEDS: IPRATROPIUM-ALBUTEROL 3 ML NEB INHALATION SCH ×4 (07:40→19:31)
[2017-01-20] MEDS: SYMBICORT 80-4.5 MCG INHALER INHALATION SCH ×2 (07:40→19:42)
[2017-01-20] MEDS ORDERED: MORPHINE SULFATE 4 MG/ML SYRINGE IVP PRN (07:48)
[2017-01-20 07:59] LABS: Anion Gap 7 mmol/L; Blood Urea Nitrogen 42 mg/dL (9-20); Calcium 8.7 mg/dL (8.4-10.2); Carbon Dioxide 30 mmol/L (22-30); Chloride 102 mmol/L (98-107); Glucose 146 mg/dL (74-99); Non-African American GFR(MDRD) 60 (>60 ml/min/1.73 sqM); Potassium 4.9 mmol/L (3.5-5.1); Sodium 139 mmol/L (137-145)
[2017-01-20] MEDS: INSULIN LISPRO (humaLOG) 300 UNIT/3 ML VIAL SQ SCH ×4 (08:18→22:28)
[2017-01-20] MEDS: CEFUROXIME 250 MG TAB PO SCH ×2 (08:19→21:42)
[2017-01-20] MEDS: CLOTRIMAZOLE TROCHE 10 MG TROCHE MUCOUS MEM SCH ×3 (08:20→22:29)
[2017-01-20] MEDS: ENOXAPARIN 40 MG/0.4 ML SYRINGE SQ SCH (08:20)
--- NOTE | 2017-01-20 10:38 | P.PN ---
<Marta Herrera M - Last Filed: 01/20/17 10:27> Subjective Progress Note Date: 01/20/17 Principal diagnosis: Acute exacerbation of severe oxygen-dependent COPD, complicated by tracheal bronchitis This is a very pleasant 81-year-old gentleman who follows with Dr. Elkins as his primary care physician. He has a history of hypertension and hypothyroidism hyperlipidemia. He also has a remote history of smoking. 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 Diaz in our office for the same. She was hospitalized twice this year for an acute COPD exacerbation. This is his third admission to the hospital. He came in with worsening shortness of breath suspecting pneumonia. Chest x-ray is free of any acute consolidation airspace disease. He is typically on 2 L of oxygen by nasal cannula. He's been utilizing his DuoNeb neb treatments at least 3-4 times a day. He has been in and out and has been exposed to radiation in temperature and humidity. He comes in with typical acute COPD exacerbation for now. No pleurisy. No hemoptysis. He was producing some limited amount of sputum. His chest wall was sore special with coughing and deep breathing. The patient has been having difficulties with swallowing and he has undergone a recent evaluation including an swallow evaluation that came back within normal limits. During his most recent hospitalization the patient and a computed tomography scan of the chest that showed no acute abnormalities. The patient also had a Lexiscan cardiac stress test that showed no evidence of any reversible ischemia On 01/18/2017 the patient is still having difficulty breathing. He has a congested cough. Still is producing some sputum in the sputum was sent for cultures and the cultures and sensitivities are still pending for now. No much improvement since yesterday. No angina. No aspiration. He is also limited with a dose of 40 mg every 8 hours. He is also on a combination of Levaquin and aztreonam. He is on broad without it is around the clock. No change in mental status. No fever. No chills. No signs of septicemia. No other significant events overnight. On 01/19/2017 the patient is not showing any signs of improvement. He still cough and out copious amount of purulent respiratory secretions. His bronchospastic and wheezy. Cultures from the sputum has been negative. He is on Ceftin orally. He is also on IV Solu-Medrol high-dose. On and off is having skeletal chest wall pain and burning in his chest related to his acute COPD exacerbation. No fever. No chills. No change in mental status. He has gained around 20 half pounds over the past 24 hours probably rates to fluids. On 01/20/2017 patient states he does not seem to have improved. He is resting in bed, he is trying to expectorate phlegm. The production of purulent sputum seems to have considerably decreased since yesterday, sputum culture has been sent and preliminary results are positive for some budding yeast, and gram- negative and gram-positive bacilli, however the final results are pending. Lung sounds are somewhat less rhonchorous, with diffuse wheezing. He is on oral Ceftin, his Solu-Medrol has been decreased to 40 every 8 hours per attending. Still having some skeletal wall pain and burning in his chest related to his acute tracheobronchitis. No fever, no chills. Objective - Vital Signs Vital signs: Vital Signs Temp 98.0 F 01/20/17 07:00 Pulse 92 01/20/17 07:56 Resp 20 01/20/17 07:00 BP 108/63 01/20/17 07:00 Pulse Ox 94 L 01/20/17 07:00 Intake & Output 01/19/17 01/20/17 01/20/17 18:59 06:59 18:59 Intake Total 240 200 Output Total 200 Balance 40 200 Weight 89 kg Intake: Oral 240 200 Output: Urine 200 Other: Voiding Method Urinal Urinal # Voids 3 3 # Bowel Movements 2 - Exam Head exam was generally normal. There was no scleral icterus or corneal arcus. Mucous membranes were moist.Neck was supple and without jugular venous distension, thyromegaly, or carotid bruits. Carotids were easily palpable bilaterally. There was no adenopathy. Lungs are diminished breath sound bilaterally along with diffuse expiratory wheezes throughout the lung levi and there is pronation of the extremities of breathing.Cardiac exam revealed the PMI to be normally situated and sized. The rhythm was regular and no extrasystoles were noted during several minutes of auscultation. The first and second heart sounds were normal and physiologic splitting of the second heart sound was noted. There were no murmurs, rubs, clicks, or gallops.Abdominal exam revealed normal bowel sounds. The abdomen was soft, non-tender, and without masses, organomegaly, or appreciable enlargement of the abdominal aorta.Examination of the extremities revealed easily palpable radial, femoral and pedal pulses. There was no cyanosis, clubbing or edema.Examination of the skin revealed no evidence of significant rashes, suspicious appearing nevi or other concerning lesions. Neurologically the patient is awake and alert and there is no focal neurological deficit. Muscular 7 exam shows no evidence of any acute arthritis and joint deformities. - Labs CBC & Chem 7: 01/20/17 07:10 01/20/17 07:10 Labs: Abnormal Lab Results - Last 24 Hours (Table) 01/19/17 01/19/17 01/19/17 Range/Units 11:16 17:02 20:49 RBC (4.30-5.90) m/uL Hgb (13.0-17.5) gm/dL Hct (39.0-53.0) % MCV (80.0-100.0) fL Plt Count (150-450) k/uL Lymphocytes # (1.0-4.8) k/uL BUN (9-20) mg/dL Glucose (74-99) mg/dL POC Glucose (mg/dL) 160 H 152 H 127 H (75-99) mg/dL 01/20/17 01/20/17 01/20/17 Range/Units 07:10 07:10 07:18 RBC 3.65 L (4.30-5.90) m/uL Hgb 11.8 L (13.0-17.5) gm/dL Hct 37.2 L (39.0-53.0) % MCV 101.9 H (80.0-100.0) fL Plt Count 139 L (150-450) k/uL Lymphocytes # 0.6 L (1.0-4.8) k/uL BUN 42 H (9-20) mg/dL Glucose 146 H (74-99) mg/dL POC Glucose (mg/dL) 146 H (75-99) mg/dL Microbiology - Last 24 Hours (Table) 01/19/17 11:15 Gram Stain - Preliminary Sputum 01/15/17 22:03 Blood Culture - Preliminary Blood No Growth after 96 hours 01/17/17 04:25 Gram Stain - Final Sputum Sputum Culture - Final Assessment and Plan Plan: Assessment and Plan Plan: Impression: #1 Acute exacerbation of severe oxygen dependent chronic obstructive pulmonary disease, complicated by tracheobronchitis. There is no evidence of pneumonia based on the most recent CAT scan findings. Two-view chest x-ray from 2016 shows no evidence of focal airspace opacity or pleural effusion. Patient has advanced COPD and he is oxygen dependent for many years and he has chronic hypoxic respiratory failure. He has been maintained on Breo as maintenance on outpatient basis. #2 Hypertension. #3 Hyperlipidemia. #4 Hypothyroidism. #5 Rheumatoid arthritis. #6 Benign prostatic hypertrophy. #7 History of shingles. #8 recent evaluation for dyspnea and the workup has been negative. PLAN The patient is slightly improved with less purulent phlegm production, but his energy level is low. The patient continues to be symptomatic. Continue the bronchodilators and IV steroids. Yesterday patient was given 2 doses of IV Lasix, and his weight is down 3-1/2 pounds in the last 24 hours. Repeat chest x -ray results have been reviewed and are negative for any evidence of acute cardiopulmonary process. Increase activity as tolerated. <Tee Pepe - Last Filed: 01/20/17 13:07> Objective - Vital Signs Vital signs: Vital Signs Temp 98.0 F 01/20/17 07:00 Pulse 82 01/20/17 08:00 Resp 20 01/20/17 08:00 BP 108/63 01/20/17 07:00 Pulse Ox 94 L 01/20/17 07:00 Intake & Output 01/19/17 01/20/17 01/20/17 18:59 06:59 18:59 Intake Total 240 200 Output Total 200 Balance 40 200 Weight 89 kg 89 kg Intake: Oral 240 200 Output: Urine 200 Other: Voiding Method Urinal Urinal Urinal # Voids 3 3 # Bowel Movements 2 - Labs CBC & Chem 7: 01/20/17 07:10 01/20/17 07:10 Labs: Abnormal Lab Results - Last 24 Hours (Table) 01/19/17 01/19/17 01/20/17 Range/Units 17:02 20:49 07:10 RBC 3.65 L (4.30-5.90) m/uL Hgb 11.8 L (13.0-17.5) gm/dL Hct 37.2 L (39.0-53.0) % MCV 101.9 H (80.0-100.0) fL Plt Count 139 L (150-450) k/uL Lymphocytes # 0.6 L (1.0-4.8) k/uL BUN (9-20) mg/dL Glucose (74-99) mg/dL POC Glucose (mg/dL) 152 H 127 H (75-99) mg/dL 01/20/17 01/20/17 01/20/17 Range/Units 07:10 07:18 11:21 RBC (4.30-5.90) m/uL Hgb (13.0-17.5) gm/dL Hct (39.0-53.0) % MCV (80.0-100.0) fL Plt Count (150-450) k/uL Lymphocytes # (1.0-4.8) k/uL BUN 42 H (9-20) mg/dL Glucose 146 H (74-99) mg/dL POC Glucose (mg/dL) 146 H 204 H (75-99) mg/dL Microbiology - Last 24 Hours (Table) 01/19/17 11:15 Gram Stain - Preliminary Sputum Sputum Culture - Preliminary 01/15/17 22:03 Blood Culture - Preliminary Blood No Growth after 96 hours 01/17/17 04:25 Gram Stain - Final Sputum Sputum Culture - Final Assessment and Plan Plan: On today's evaluation of 01/20/2017 the patient is sitting in a joint evaluation with the nurse practitioner. I had tested information mentioned above. I diuresis patient yesterday with IV Lasix. He has lost around 10 a half liters and he is at least 2 kg less than in terms of his body weight. He is less bronchospastic and wheezy compared to yesterday. He had a rough night getting up in the middle of the night for urination. He is however negative fluid balance. We'll stop the Lasix. Continue bronchodilators. Continue steroids. We'll continue to follow.
[2017-01-20 10:43] VITALS: BMI 30.7
[2017-01-20 11:36] LABS: Glucose,Whole Blood 204 mg/dL (75-99)
[2017-01-20] MEDS: MORPHINE SULFATE 10 MG/ML SYRINGE IVP PRN ×3 (13:24→22:27)
--- NOTE | 2017-01-20 16:19 | PN ---
PROGRESS NOTE DATE OF SERVICE: 01/20/2017 I am covering for Dr. Barajas. HISTORY: This is an 81-year-old gentleman who was admitted with COPD exacerbation, purulent tracheobronchitis is being closely monitored. The most recent chest x-ray done yesterday showed no acute pulmonary process. The patient complaining of bilateral chest pains also. Dr. Pepe is following the patient closely. The patient is also on steroids as well which has been tapered yesterday. PAST MEDICAL HISTORY: Reviewed. REVIEW OF SYSTEMS: Cardio system: No angina or palpitations. Respiratory: As mentioned earlier. GI: As mentioned earlier. As mentioned earlier. central nervous system: No numbness or weakness. CURRENT MEDICATIONS: Reviewed and include: 1. DuoNeb q.i.d. and p.r.n. 2. Lipitor 20 mg q.h.s. 3. Symbicort 160/4.5 b.i.d. 4. Ceftin 25 mg b.i.d. 5. Mycelex. 6. Benadryl. 7. Aricept. 8. Lovenox. 9. Neurontin. 10.Imdur. 11.Synthroid. 12.Ativan. 13.Solu-Medrol. 14.Percocet. 15.Protonix. 16.MiraLAX. 17.Senokot. PHYSICAL EXAM: Patient is alert, oriented times three, pulse 90, blood pressure is 108/96, respiration 18, temperature 98.5, pulse ox 98% on 2 L. HEENT: Conjunctivae normal. Oral mucosa moist. Neck is no jugular venous distention. No carotid bruit. No lymph node enlargement. Cardiovascular: S1, S2 muffled. Respirations: Breath sounds diminished in the bases. A few scattered rhonchi and crackles. ABDOMEN: Soft, nontender. Legs are no edema. NERVOUS SYSTEM: No focal deficits. LAB STUDIES: At this time shows WBC 7.2, hemoglobin 7.8, glucose noted. ASSESSMENT: 1. Chronic obstructive pulmonary disease acute exacerbation with acute purulent tracheobronchitis. 2. Bilateral chest pains, possibly musculoskeletal, possible pleurisy. 3. Gastroesophageal reflux disease. 4. Hypertension. 5. Hyperlipidemia. 6. Benign prostatic hypertrophy. 7. Chronic rheumatoid arthritis. 8. Hypothyroidism. RECOMMENDATIONS AND DISCUSSION: Continue current medications, current management. Symptomatic treatment. Otherwise we will taper the steroids further and initiate prednisone. Guarded prognosis. Further recommendations to follow. MMODL / IJN: [id number] /
[2017-01-20] MEDS: LORazepam 0.5 MG TAB PO PRN (16:57)
[2017-01-20] MEDS: predniSONE 20 MG TAB PO SCH (16:57)
[2017-01-20 17:04] LABS: Glucose,Whole Blood 148 mg/dL (75-99)
[2017-01-20] MEDS: FAMOTIDINE 20 MG TAB PO SCH (21:42)
[2017-01-20] MEDS: PANTOPRAZOLE 40 MG TABLET PO SCH (21:43)
[2017-01-20] MEDS: ISOSORBIDE MONONITRATE ER 60 MG TAB.ER.24H PO SCH (21:43)
[2017-01-20] MEDS: GABAPENTIN 400 MG CAP PO SCH (21:43)
[2017-01-20] MEDS: TAMSULOSIN 0.4 MG CAP.ER.24H PO SCH (21:43)
[2017-01-20] MEDS: ATORVASTATIN 20 MG TAB PO SCH (21:43)
[2017-01-20] MEDS: DONEPEZIL 10 MG TAB PO SCH (21:43)
[2017-01-20] MEDS: SENNOSIDES 8.6 MG TAB PO SCH (21:43)
[2017-01-20] MEDS: diphenhydrAMINE 25 MG CAP PO SCH (21:46)
[2017-01-20] MEDS: LORazepam 0.5 MG TAB PO SCH (21:46)
[2017-01-20] MEDS: traZODone HCL 50 MG TAB PO PRN (22:28)
[2017-01-20] MEDS: LEVOTHYROXINE 100 MCG TAB PO SCH (22:29)
[2017-01-20] MEDS: LEVOTHYROXINE 75 MCG TAB PO SCH (22:29)
[2017-01-20 22:41] LABS: Glucose,Whole Blood 144 mg/dL (75-99)
[2017-01-21] MEDS: IPRATROPIUM-ALBUTEROL 3 ML NEB INHALATION SCH ×4 (07:30→19:18)
[2017-01-21] MEDS: SYMBICORT 80-4.5 MCG INHALER INHALATION SCH ×2 (07:30→19:19)
[2017-01-21 07:43] LABS: Glucose,Whole Blood 142 mg/dL (75-99)
[2017-01-21] MEDS: INSULIN LISPRO (humaLOG) 300 UNIT/3 ML VIAL SQ SCH ×4 (07:57→21:03)
[2017-01-21 08:41] LABS: Anion Gap 6 mmol/L; Blood Urea Nitrogen 45 mg/dL (9-20); Calcium 8.7 mg/dL (8.4-10.2); Carbon Dioxide 30 mmol/L (22-30); Chloride 103 mmol/L (98-107); Glucose 138 mg/dL (74-99); Non-African American GFR(MDRD) >60 (>60 ml/min/1.73 sqM); Sodium 139 mmol/L (137-145)
[2017-01-21 08:43] LABS: Basophils % (A) 0 %; CH 33.6; CHCM 33.3; Eosinophils % (A) 0 %; HCT 38.5 % (39.0-53.0); HDW 2.39; HGB 12.6 gm/dL (13.0-17.5); Luc # (Auto) 0.08; Luc % (Auto) 1; Lymphocytes # (A) 0.7 k/uL (1.0-4.8); Lymphocytes % (A) 10 %; MCH 33.1 pg (25.0-35.0); MCHC 32.6 g/dL (31.0-37.0); MCV 101.5 fL (80.0-100.0); Macrocytosis Slight; Mean Platelet Volume 8.5; Monocytes # (A) 0.5 k/uL (0-1.0); Monocytes % (A) 7 %; Neutrophils # (A) 6.1 k/uL (1.3-7.7); Neutrophils % (A) 82 %; RBC 3.79 m/uL (4.30-5.90); RDW 14.1 % (11.5-15.5); WBC 7.5 k/uL (3.8-10.6); WBC (Perox) 6.92
[2017-01-21] MEDS: CLOTRIMAZOLE TROCHE 10 MG TROCHE MUCOUS MEM SCH ×3 (09:08→21:08)
[2017-01-21] MEDS: predniSONE 20 MG TAB PO SCH (09:08)
[2017-01-21] MEDS: CEFUROXIME 250 MG TAB PO SCH ×2 (09:08→21:07)
[2017-01-21] MEDS: ENOXAPARIN 40 MG/0.4 ML SYRINGE SQ SCH (09:08)
[2017-01-21] MEDS: POLYETHYLENE GLYCOL 3350 17 GM POWD.PACK PO SCH (09:09)
--- NOTE | 2017-01-21 10:25 | P.PN ---
<Marta Herrera M - Last Filed: 01/21/17 10:18> Subjective Progress Note Date: 01/21/17 Principal diagnosis: Acute exacerbation of severe oxygen-dependent COPD, complicated by tracheal bronchitis This is a very pleasant 81-year-old gentleman who follows with Dr. Elkins as his primary care physician. He has a history of hypertension and hypothyroidism hyperlipidemia. He also has a remote history of smoking. 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 Diaz in our office for the same. She was hospitalized twice this year for an acute COPD exacerbation. This is his third admission to the hospital. He came in with worsening shortness of breath suspecting pneumonia. Chest x-ray is free of any acute consolidation airspace disease. He is typically on 2 L of oxygen by nasal cannula. He's been utilizing his DuoNeb neb treatments at least 3-4 times a day. He has been in and out and has been exposed to radiation in temperature and humidity. He comes in with typical acute COPD exacerbation for now. No pleurisy. No hemoptysis. He was producing some limited amount of sputum. His chest wall was sore special with coughing and deep breathing. The patient has been having difficulties with swallowing and he has undergone a recent evaluation including an swallow evaluation that came back within normal limits. During his most recent hospitalization the patient and a computed tomography scan of the chest that showed no acute abnormalities. The patient also had a Lexiscan cardiac stress test that showed no evidence of any reversible ischemia On 01/18/2017 the patient is still having difficulty breathing. He has a congested cough. Still is producing some sputum in the sputum was sent for cultures and the cultures and sensitivities are still pending for now. No much improvement since yesterday. No angina. No aspiration. He is also limited with a dose of 40 mg every 8 hours. He is also on a combination of Levaquin and aztreonam. He is on broad without it is around the clock. No change in mental status. No fever. No chills. No signs of septicemia. No other significant events overnight. On 01/19/2017 the patient is not showing any signs of improvement. He still cough and out copious amount of purulent respiratory secretions. His bronchospastic and wheezy. Cultures from the sputum has been negative. He is on Ceftin orally. He is also on IV Solu-Medrol high-dose. On and off is having skeletal chest wall pain and burning in his chest related to his acute COPD exacerbation. No fever. No chills. No change in mental status. He has gained around 20 half pounds over the past 24 hours probably rates to fluids. On 01/20/2017 patient states he does not seem to have improved. He is resting in bed, he is trying to expectorate phlegm. The production of purulent sputum seems to have considerably decreased since yesterday, sputum culture has been sent and preliminary results are positive for some budding yeast, and gram- negative and gram-positive bacilli, however the final results are pending. Lung sounds are somewhat less rhonchorous, with diffuse wheezing. He is on oral Ceftin, his Solu-Medrol has been decreased to 40 every 8 hours per attending. Still having some skeletal wall pain and burning in his chest related to his acute tracheobronchitis. No fever, no chills. On 01/21/2017 and is resting in bed, he denies any distress. He continues to improve from pulmonary standpoint. Decreased production purulent sputum. Microbiology results have been reviewed and are negative so far. Patient remains afebrile, denies fever, or chills. Respirations are even and nonlabored , he is on room air with O2 saturation around 92%. Lung sounds are negative for wheezing. Equal air entry bilaterally with a few scattered rhonchi which is much improved from yesterday. He continues on oral Ceftin, Solu-Medrol has been switched to oral prednisone per attending. Objective - Vital Signs Vital signs: Vital Signs Temp 98.9 F 01/21/17 07:00 Pulse 76 01/21/17 07:51 Resp 18 01/21/17 07:00 BP 98/60 01/21/17 07:00 Pulse Ox 92 L 01/21/17 07:00 Intake & Output 01/20/17 01/21/17 01/21/17 18:59 06:59 18:59 Intake Total 1200 Output Total 200 Balance 1000 Weight 89 kg 89.9 kg Intake: Oral 1200 Output: Urine 200 Other: Voiding Method Urinal Toilet # Voids 3 1 - Exam GENERAL EXAM: Alert, active, comfortable in no apparent distress. HEAD: Normocephalic. EYES: Normal reaction of pupils, equal size. NOSE: Clear with pink turbinates. THROAT: No erythema or exudates. NECK: No masses, no JVD. CHEST: No chest wall deformity. LUNGS: Equal air entry with no wheeze, rales or dullness. Few scattered rhonchi present over posterior basis CVS: S1 and S2 normal with no audible mumurs, regular rhythm. ABDOMEN: No hepatosplenomegaly, normal bowel sounds, no guarding or rigidity. SPINE: No scoliosis or deformity SKIN: No rashes CENTRAL NERVOUS SYSTEM: No focal deficits, tone is normal in all 4 extremities. - Labs CBC & Chem 7: 01/21/17 07:40 01/21/17 07:40 Labs: Abnormal Lab Results - Last 24 Hours (Table) 01/20/17 01/20/17 01/20/17 Range/Units 11:21 16:58 22:28 RBC (4.30-5.90) m/uL Hgb (13.0-17.5) gm/dL Hct (39.0-53.0) % MCV (80.0-100.0) fL Lymphocytes # (1.0-4.8) k/uL BUN (9-20) mg/dL Glucose (74-99) mg/dL POC Glucose (mg/dL) 204 H 148 H 144 H (75-99) mg/dL 01/21/17 01/21/17 01/21/17 Range/Units 07:22 07:40 07:40 RBC 3.79 L (4.30-5.90) m/uL Hgb 12.6 L (13.0-17.5) gm/dL Hct 38.5 L (39.0-53.0) % MCV 101.5 H (80.0-100.0) fL Lymphocytes # 0.7 L (1.0-4.8) k/uL BUN 45 H (9-20) mg/dL Glucose 138 H (74-99) mg/dL POC Glucose (mg/dL) 142 H (75-99) mg/dL Microbiology - Last 24 Hours (Table) 01/19/17 11:15 Gram Stain - Final Sputum Sputum Culture - Final 01/15/17 22:03 Blood Culture - Preliminary Blood No Growth after 120 hours Assessment and Plan Plan: Assessment and Plan Plan: Impression: #1 Acute exacerbation of severe oxygen dependent chronic obstructive pulmonary disease, complicated by tracheobronchitis. There is no evidence of pneumonia based on the most recent CAT scan findings. Two-view chest x-ray from 2016 shows no evidence of focal airspace opacity or pleural effusion. Patient has advanced COPD and he is oxygen dependent for many years and he has chronic hypoxic respiratory failure. He has been maintained on Breo as maintenance on outpatient basis. #2 Hypertension. #3 Hyperlipidemia. #4 Hypothyroidism. #5 Rheumatoid arthritis. #6 Benign prostatic hypertrophy. #7 History of shingles. #8 recent evaluation for dyspnea and the workup has been negative. PLAN The patient is significantly improved with less purulent phlegm production, but his energy level remains low. Continue the bronchodilators and oral steroids. Continue increasing activity as tolerated. Continue with pulmonary toileting. I performed a history & physical examination of the patient and discussed their management with my nurse practitioner, Marta Herrera. I reviewed the nurse practitioner's note and agree with the documented findings and plan of care. <Tee Pepe - Last Filed: 01/21/17 16:07> Objective - Vital Signs Vital signs: Vital Signs Temp 98.2 F 01/21/17 15:00 Pulse 52 L 01/21/17 15:00 Resp 18 01/21/17 15:00 BP 109/70 01/21/17 15:00 Pulse Ox 98 01/21/17 15:00 Intake & Output 01/20/17 01/21/17 01/21/17 18:59 06:59 18:59 Intake Total 1200 540 Output Total 200 200 Balance 1000 340 Weight 89 kg 89.9 kg Intake: Oral 1200 540 Output: Urine 200 200 Other: Voiding Method Urinal Toilet Toilet # Voids 3 1 1 # Bowel Movements 0 - Labs CBC & Chem 7: 01/21/17 07:40 01/21/17 07:40 Labs: Abnormal Lab Results - Last 24 Hours (Table) 01/20/17 01/20/17 01/21/17 Range/Units 16:58 22:28 07:22 RBC (4.30-5.90) m/uL Hgb (13.0-17.5) gm/dL Hct (39.0-53.0) % MCV (80.0-100.0) fL Lymphocytes # (1.0-4.8) k/uL BUN (9-20) mg/dL Glucose (74-99) mg/dL POC Glucose (mg/dL) 148 H 144 H 142 H (75-99) mg/dL 01/21/17 01/21/17 01/21/17 Range/Units 07:40 07:40 11:26 RBC 3.79 L (4.30-5.90) m/uL Hgb 12.6 L (13.0-17.5) gm/dL Hct 38.5 L (39.0-53.0) % MCV 101.5 H (80.0-100.0) fL Lymphocytes # 0.7 L (1.0-4.8) k/uL BUN 45 H (9-20) mg/dL Glucose 138 H (74-99) mg/dL POC Glucose (mg/dL) 155 H (75-99) mg/dL 01/21/17 Range/Units 13:32 RBC (4.30-5.90) m/uL Hgb (13.0-17.5) gm/dL Hct (39.0-53.0) % MCV (80.0-100.0) fL Lymphocytes # (1.0-4.8) k/uL BUN (9-20) mg/dL Glucose (74-99) mg/dL POC Glucose (mg/dL) 134 H (75-99) mg/dL Microbiology - Last 24 Hours (Table) 01/19/17 11:15 Gram Stain - Final Sputum Sputum Culture - Final 01/15/17 22:03 Blood Culture - Preliminary Blood No Growth after 120 hours Assessment and Plan Plan: This is a joint evaluation that was done along with a nurse practitioner. I attest to the above-mentioned inflammation. I do not have any other additions. We'll continue same treatment. Slow progressive improvement in this patient.
[2017-01-21 11:56] LABS: Glucose,Whole Blood 155 mg/dL (75-99)
[2017-01-21] MEDS: MORPHINE SULFATE 10 MG/ML SYRINGE IVP PRN (13:34)
[2017-01-21 14:24] LABS: Glucose,Whole Blood 134 mg/dL (75-99)
--- NOTE | 2017-01-21 16:17 | PN ---
PROGRESS NOTE This 81-year-old gentleman, admitted with a history pneumonia, also had significant COPD. Bilateral chest pains also have been complained of. Pulmonary is following the patient. Patient is on steroids. Dr. Pepe saw the patient today. Dr. Pepe was tentatively considering bronchoscopy in case of nonimprovement. The patient is being closely monitored. Past medical history reviewed. REVIEW OF SYSTEMS: CARDIOVASCULAR SYSTEM: As mentioned earlier. GI: As mentioned earlier. : No dysuria or retention. NERVOUS SYSTEM: No numbness, weakness. CURRENT MEDICATIONS: Current medications are reviewed and include: 1. DuoNeb q.i.d. and p.r.n. 2. Lipitor 20 mg at bedtime. 3. Symbicort 160/4.5 b.i.d. 4. Mycelex. 5. Benadryl. 6. Aricept. 7. Pepcid. 8. Neurontin. 9. Humalog. 10.Imdur. 11.Synthroid. 12.Ativan. 13.Percocet. 14.Miralax. PHYSICAL EXAMINATION: Patient is alert, oriented x2. Pulse 58, blood pressure 109/70, respiration 18, temperature 98.2, pulse ox 98% on room air. HEENT: Conjunctivae normal. NECK: No jugular venous distention. CARDIOVASCULAR SYSTEM: S1, S2 muffled. RESPIRATORY SYSTEM: Breath sounds diminished at the bases. Scattered rhonchi. No crackles. Expiratory wheezing also present. ABDOMEN: Soft, nontender. LEGS: No edema. No swelling. NERVOUS SYSTEM: No focal deficit. LABS: WBC 7.2, hemoglobin 12.6. Glucose noted. ASSESSMENT: 1. Chronic obstructive pulmonary disease, acute exacerbation, with acute purulent tracheobronchitis. 2. Bilateral chest pain, possibly musculoskeletal, possible pleurisy. Rule out coronary disease. 3. Gastroesophageal reflux disease. 4. Hypertension,. 5. Hyperlipidemia. 6. Benign prostatic hypertrophy. 7. Chronic rheumatoid arthritis. 8. Hypothyroidism. RECOMMENDATIONS AND DISCUSSION: I recommend to continue current medication, continue symptomatic treatment. I will taper the steroids. Continue the antibiotics. Patient also had chest pain which was a constricting type. I would recommend a set of troponins and EKG. Symptomatic treatment will be provided. Closely follow with Dr. Pepe. Most recent chest x-ray which was reviewed by me showed no significant medical issues or any evidence of pneumonia. Prognosis guarded because of multiple complex medical issues. Further recommendations to follow. See orders for further details. Discussed with staff. Had a lengthy discussion with the patient. MMODL / IJN: [id number] /
--- NOTE | 2017-01-21 16:59 | XR ---
EXAMINATION TYPE: XR chest 1V portable DATE OF EXAM: 01/21/2017 COMPARISON: 01/19/2017 HISTORY: Pneumonia. Chest pain TECHNIQUE: Single frontal view of the chest is obtained. FINDINGS: There is some linear patchy density at the left lung base. The other lung levi are clear . Heart and mediastinum are normal. There is no sign of pleural effusion. IMPRESSION: There is new linear infiltrate and atelectasis at the left lung base compared to last ex am. No heart failure.
--- NOTE | 2017-01-21 17:14 | CT ---
EXAMINATION TYPE: CT brain wo con DATE OF EXAM: 01/21/2017 COMPARISON: 12/20/2016 HISTORY: Change in mental status. CT DLP: 1097.00 mGycm Automated exposure control for dose reduction was used. FINDINGS: There is some cerebral cortical atrophy. There is no mass effect nor midline shift. There is no sign of intracranial hemorrhage. The calvarium is intact. There is mucosal thickening in the right ethmoid sinus. IMPRESSION: CEREBRAL ATROPHY. NO ACUTE INTRACRANIAL ABNORMALITY. NO CHANGE. 2 CM AREA OF MUCOSAL THICKENING IN THE RIGHT SIDE POSTERIOR ETHMOID SINUS WITHOUT EVIDENCE OF BONE D ESTRUCTION. THIS IS CONSISTENT WITH SINUSITIS AND IS SLIGHTLY INCREASED COMPARED TO RECENT EXAM.
[2017-01-21 17:32] LABS: Glucose,Whole Blood 147 mg/dL (75-99)
[2017-01-21 20:37] LABS: Glucose,Whole Blood 117 mg/dL (75-99)
[2017-01-21] MEDS: FAMOTIDINE 20 MG TAB PO SCH (21:05)
[2017-01-21] MEDS: LEVOTHYROXINE 75 MCG TAB PO SCH (21:06)
[2017-01-21] MEDS: PANTOPRAZOLE 40 MG TABLET PO SCH (21:06)
[2017-01-21] MEDS: GABAPENTIN 400 MG CAP PO SCH (21:06)
[2017-01-21] MEDS: LEVOTHYROXINE 100 MCG TAB PO SCH (21:07)
[2017-01-21] MEDS: TAMSULOSIN 0.4 MG CAP.ER.24H PO SCH (21:07)
[2017-01-21] MEDS: DONEPEZIL 10 MG TAB PO SCH (21:07)
[2017-01-21] MEDS: SENNOSIDES 8.6 MG TAB PO SCH (21:07)
[2017-01-21] MEDS: ATORVASTATIN 20 MG TAB PO SCH (21:07)
[2017-01-21] MEDS: diphenhydrAMINE 25 MG CAP PO SCH (21:07)
[2017-01-21] MEDS: ISOSORBIDE MONONITRATE ER 60 MG TAB.ER.24H PO SCH (21:07)
[2017-01-22 01:54] LABS: Basophils % (A) 0 %; CH 33.9; CHCM 32.7; Eosinophils % (A) 0 %; HCT 37.9 % (39.0-53.0); HDW 2.34; Luc # (Auto) 0.07; Luc % (Auto) 1; Lymphocytes % (A) 13 %; MCH 32.9 pg (25.0-35.0); MCHC 31.7 g/dL (31.0-37.0); MCV 104.1 fL (80.0-100.0); Macrocytosis Slight; Mean Platelet Volume 7.7; Monocytes # (A) 0.4 k/uL (0-1.0); Monocytes % (A) 5 %; Neutrophils % (A) 80 %; RBC 3.64 m/uL (4.30-5.90); RDW 13.6 % (11.5-15.5); WBC 7.4 k/uL (3.8-10.6); WBC (Perox) 7.93
[2017-01-22 02:06] LABS: Anion Gap 6 mmol/L; Blood Urea Nitrogen 37 mg/dL (9-20); Calcium 8.5 mg/dL (8.4-10.2); Carbon Dioxide 29 mmol/L (22-30); Chloride 102 mmol/L (98-107); Glucose 123 mg/dL (74-99); Non-African American GFR(MDRD) >60 (>60 ml/min/1.73 sqM); Potassium 4.3 mmol/L (3.5-5.1); Sodium 137 mmol/L (137-145)
[2017-01-22] MEDS: IPRATROPIUM-ALBUTEROL 3 ML NEB INHALATION PRN (04:12)
[2017-01-22] MEDS: MORPHINE SULFATE 10 MG/ML SYRINGE IVP PRN ×2 (06:27→10:43)
[2017-01-22] MEDS: IPRATROPIUM-ALBUTEROL 3 ML NEB INHALATION SCH ×4 (07:17→20:16)
[2017-01-22] MEDS: SYMBICORT 80-4.5 MCG INHALER INHALATION SCH ×2 (07:17→20:16)
[2017-01-22 08:06] LABS: Glucose,Whole Blood 90 mg/dL (75-99)
[2017-01-22] MEDS: INSULIN LISPRO (humaLOG) 300 UNIT/3 ML VIAL SQ SCH ×4 (08:43→22:02)
[2017-01-22] MEDS: CEFUROXIME 250 MG TAB PO SCH ×2 (08:48→20:18)
[2017-01-22] MEDS: ENOXAPARIN 40 MG/0.4 ML SYRINGE SQ SCH (08:48)
[2017-01-22] MEDS: predniSONE 20 MG TAB PO SCH (08:48)
[2017-01-22] MEDS: CLOTRIMAZOLE TROCHE 10 MG TROCHE MUCOUS MEM SCH ×3 (08:48→20:19)
[2017-01-22] MEDS ORDERED: RX INFO: IV CONTRAST WAS GIVEN 1 EACH MISC MISCELLANE PRN (10:57)
--- NOTE | 2017-01-22 10:57 | P.PN ---
<Hailey Oh - Last Filed: 01/22/17 10:50> Subjective Progress Note Date: 01/22/17 Principal diagnosis: Acute exacerbation of chronic obstructive pulmonary disease, complicated by tracheal bronchitis. This is a very pleasant 81-year-old gentleman who follows with Dr. Elkins as his primary care physician. He has a history of hypertension and hypothyroidism hyperlipidemia. He also has a remote history of smoking. 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 Diaz in our office for the same. She was hospitalized twice this year for an acute COPD exacerbation. This is his third admission to the hospital. He came in with worsening shortness of breath suspecting pneumonia. Chest x-ray is free of any acute consolidation airspace disease. He is typically on 2 L of oxygen by nasal cannula. He's been utilizing his DuoNeb neb treatments at least 3-4 times a day. He has been in and out and has been exposed to radiation in temperature and humidity. He comes in with typical acute COPD exacerbation for now. No pleurisy. No hemoptysis. He was producing some limited amount of sputum. His chest wall was sore special with coughing and deep breathing. The patient has been having difficulties with swallowing and he has undergone a recent evaluation including an swallow evaluation that came back within normal limits. During his most recent hospitalization the patient and a computed tomography scan of the chest that showed no acute abnormalities. The patient also had a Lexiscan cardiac stress test that showed no evidence of any reversible ischemia On 01/18/2017 the patient is still having difficulty breathing. He has a congested cough. Still is producing some sputum in the sputum was sent for cultures and the cultures and sensitivities are still pending for now. No much improvement since yesterday. No angina. No aspiration. He is also limited with a dose of 40 mg every 8 hours. He is also on a combination of Levaquin and aztreonam. He is on broad without it is around the clock. No change in mental status. No fever. No chills. No signs of septicemia. No other significant events overnight. On 01/19/2017 the patient is not showing any signs of improvement. He still cough and out copious amount of purulent respiratory secretions. His bronchospastic and wheezy. Cultures from the sputum has been negative. He is on Ceftin orally. He is also on IV Solu-Medrol high-dose. On and off is having skeletal chest wall pain and burning in his chest related to his acute COPD exacerbation. No fever. No chills. No change in mental status. He has gained around 20 half pounds over the past 24 hours probably rates to fluids. On 01/20/2017 patient states he does not seem to have improved. He is resting in bed, he is trying to expectorate phlegm. The production of purulent sputum seems to have considerably decreased since yesterday, sputum culture has been sent and preliminary results are positive for some budding yeast, and gram- negative and gram-positive bacilli, however the final results are pending. Lung sounds are somewhat less rhonchorous, with diffuse wheezing. He is on oral Ceftin, his Solu-Medrol has been decreased to 40 every 8 hours per attending. Still having some skeletal wall pain and burning in his chest related to his acute tracheobronchitis. No fever, no chills. On 01/21/2017 and is resting in bed, he denies any distress. He continues to improve from pulmonary standpoint. Decreased production purulent sputum. Microbiology results have been reviewed and are negative so far. Patient remains afebrile, denies fever, or chills. Respirations are even and nonlabored , he is on room air with O2 saturation around 92%. Lung sounds are negative for wheezing. Equal air entry bilaterally with a few scattered rhonchi which is much improved from yesterday. He continues on oral Ceftin, Solu-Medrol has been switched to oral prednisone per attending. The patient is seen again today 01/22/2017 in follow-up on the regular medical floor. He is currently resting quite comfortably in bed. He is awake and alert in no acute distress. He still has ongoing complaints of difficulty in swallowing. He is tolerating a pureed diet. His breathing is improved today as compared to yesterday. Blood and sputum cultures revealed no growth. He remains on Ceftin. We'll continue with bronchodilators, Symbicort and prednisone taper. Objective - Vital Signs Vital signs: Vital Signs Temp 98.1 F 01/22/17 07:00 Pulse 88 01/22/17 07:31 Resp 18 01/22/17 07:00 BP 96/59 01/22/17 07:00 Pulse Ox 92 L 01/22/17 07:00 Intake & Output 01/21/17 01/22/17 01/22/17 18:59 06:59 18:59 Intake Total 540 890 Output Total 400 Balance 140 890 Weight 67.5 kg Intake: Oral 540 890 Output: Urine 400 Other: Voiding Method Toilet Toilet # Voids 1 2 # Bowel Movements 0 0 - Exam GENERAL EXAM: Alert, active, comfortable in no apparent distress. HEAD: Normocephalic. EYES: Normal reaction of pupils, equal size. NOSE: Clear with pink turbinates. THROAT: No erythema or exudates. NECK: No masses, no JVD. CHEST: No chest wall deformity. LUNGS: Equal air entry with no wheeze, rales or dullness. Few scattered rhonchi present over posterior basis CVS: S1 and S2 normal with no audible murmurs, regular rhythm. ABDOMEN: No hepatosplenomegaly, normal bowel sounds, no guarding or rigidity. SPINE: No scoliosis or deformity SKIN: No rashes CENTRAL NERVOUS SYSTEM: No focal deficits, tone is normal in all 4 extremities. Extremities: There is no significant peripheral edema. No clubbing, no cyanosis. Peripheral pulses are intact. - Labs CBC & Chem 7: 01/22/17 01:17 01/22/17 01:17 Labs: Abnormal Lab Results - Last 24 Hours (Table) 01/21/17 01/21/17 01/21/17 Range/Units 11:26 13:32 17:31 RBC (4.30-5.90) m/uL Hgb (13.0-17.5) gm/dL Hct (39.0-53.0) % MCV (80.0-100.0) fL Plt Count (150-450) k/uL BUN (9-20) mg/dL Glucose (74-99) mg/dL POC Glucose (mg/dL) 155 H 134 H 147 H (75-99) mg/dL 01/21/17 01/22/17 01/22/17 Range/Units 20:31 01:17 01:17 RBC 3.64 L (4.30-5.90) m/uL Hgb 12.0 L (13.0-17.5) gm/dL Hct 37.9 L (39.0-53.0) % MCV 104.1 H (80.0-100.0) fL Plt Count 137 L (150-450) k/uL BUN 37 H (9-20) mg/dL Glucose 123 H (74-99) mg/dL POC Glucose (mg/dL) 117 H (75-99) mg/dL Microbiology - Last 24 Hours (Table) 01/15/17 22:03 Blood Culture - Final Blood No Growth after 144 hours 01/19/17 11:15 Gram Stain - Final Sputum Sputum Culture - Final Assessment and Plan Plan: Impression: #1 Acute exacerbation of severe oxygen dependent chronic obstructive pulmonary disease, complicated by tracheobronchitis. There is no evidence of pneumonia based on the most recent CAT scan findings. Two-view chest x-ray from 2016 shows no evidence of focal airspace opacity or pleural effusion. Patient has advanced COPD and he is oxygen dependent for many years and he has chronic hypoxic respiratory failure. He has been maintained on Breo as maintenance on outpatient basis. #2 Hypertension. #3 Hyperlipidemia. #4 Hypothyroidism. #5 Rheumatoid arthritis. #6 Benign prostatic hypertrophy. #7 History of shingles. #8 recent evaluation for dysphagia and the workup has been negative. PLAN The patient was seen and evaluated by Dr. Pepe. His chest x-ray and computed tomography scan of the brain were reviewed. The patient does have ongoing concerns regarding hoarseness and difficulty swallowing. We will order a computed tomography scan of the neck today. The patient is improved today as compared to yesterday. We'll continue with his current medications. We will increase his activity as tolerated. We'll continue to follow. <Tee Pepe - Last Filed: 01/22/17 11:08> Objective - Vital Signs Vital signs: Vital Signs Temp 98.1 F 01/22/17 07:00 Pulse 84 01/22/17 11:01 Resp 18 01/22/17 07:00 BP 96/59 01/22/17 07:00 Pulse Ox 92 L 01/22/17 07:00 Intake & Output 01/21/17 01/22/17 01/22/17 18:59 06:59 18:59 Intake Total 540 890 Output Total 400 Balance 140 890 Weight 67.5 kg Intake: Oral 540 890 Output: Urine 400 Other: Voiding Method Toilet Toilet # Voids 1 2 # Bowel Movements 0 0 - Labs CBC & Chem 7: 01/22/17 01:17 01/22/17 01:17 Labs: Abnormal Lab Results - Last 24 Hours (Table) 01/21/17 01/21/17 01/21/17 Range/Units 11:26 13:32 17:31 RBC (4.30-5.90) m/uL Hgb (13.0-17.5) gm/dL Hct (39.0-53.0) % MCV (80.0-100.0) fL Plt Count (150-450) k/uL BUN (9-20) mg/dL Glucose (74-99) mg/dL POC Glucose (mg/dL) 155 H 134 H 147 H (75-99) mg/dL 01/21/17 01/22/17 01/22/17 Range/Units 20:31 01:17 01:17 RBC 3.64 L (4.30-5.90) m/uL Hgb 12.0 L (13.0-17.5) gm/dL Hct 37.9 L (39.0-53.0) % MCV 104.1 H (80.0-100.0) fL Plt Count 137 L (150-450) k/uL BUN 37 H (9-20) mg/dL Glucose 123 H (74-99) mg/dL POC Glucose (mg/dL) 117 H (75-99) mg/dL Microbiology - Last 24 Hours (Table) 01/15/17 22:03 Blood Culture - Final Blood No Growth after 144 hours 01/19/17 11:15 Gram Stain - Final Sputum Sputum Culture - Final Assessment and Plan Plan: This is an evaluation that was done along with the nurse practitioner. I do a test of the information mentioned above. The patient would have a CAT scan of the neck to further investigate his hoarseness and dysphagia. I think is improving. Muscular skeletal chest wall pain and will benefit from painkillers. I think overzealous utilization of painkillers have caused some diminished level of consciousness on this patient in the CAT scan of the brain was noted to be negative.
[2017-01-22] MEDS ORDERED: FAMOTIDINE 20 MG/2 ML VIAL IV ONE (11:24)
[2017-01-22] MEDS ORDERED: diphenhydrAMINE 50 MG/ML 1 ML VIAL IVP ONE (11:24)
[2017-01-22] MEDS ORDERED: methylPREDNISolone SOD SUCCI 125 MG/2 ML VIAL IV ONE (11:24)
[2017-01-22 12:02] LABS: Glucose,Whole Blood 124 mg/dL (75-99)
--- NOTE | 2017-01-22 16:33 | PN ---
PROGRESS NOTE DATE OF SERVICE: 01/22/2017 This 81-year-old gentleman who was admitted with COPD acute exacerbation also complaining of hoarseness and other issues. Dr. Pepe is planning CT of the neck. No chest pain. No palpitations. No fever. A CT of the brain showed cerebral atrophy and 2 cm area of mucosal thickening in the right side, posterior ethmoidal sinus also, consistent with sinusitis. No fever. No cough. EXAM: Alert, and oriented x3. Pulse is 73, blood pressure 96/59, respiration 18, temperature 98.1, pulse ox 98% on 2 L. HEENT: Conjunctivae normal. NECK: No jugular venous distention. CARDIOVASCULAR: S1, S2. RESPIRATORY: Breath sounds diminished in the bases. Scattered rhonchi and crackles. ABDOMEN: Soft. Nontender. LEGS: No edema. NERVOUS SYSTEM: No focal deficits. LAB STUDIES: WBC 7.9, hemoglobin is 12. Other labs are noted. ASSESSMENT: 1. Chronic obstructive pulmonary disease acute exacerbation with acute purulent tracheobronchitis. 2. Bilateral chest pain, possible musculoskeletal, possible pleurisy, rule out coronary artery disease. 3. Dysphagia for evaluation. 4. Gastroesophageal reflux disease. 5. Hypertension. 6. Hyperlipidemia. 7. Benign prostatic hypertrophy. 8. Chronic rheumatoid arthritis. 9. Hypothyroidism. RECOMMENDATION AND DISCUSSION: I recommend to continue current medication, symptomatic treatment. Taper the steroids. Continue the bronchodilators. Closely follow with Dr. Pepe. Otherwise CT scan of the neck has been recommended. Guarded prognosis because of the multiple complex medical issues. We will cut down the pain medications. Further recommendations to follow. MMODL / IJN: [id number] /
[2017-01-22 17:48] LABS: Glucose,Whole Blood 153 mg/dL (75-99)
[2017-01-22] MEDS: oxyCODONE-APAP 10-325MG 1 EACH TAB PO PRN (20:16)
[2017-01-22] MEDS: diphenhydrAMINE 25 MG CAP PO SCH ×2 (20:16→20:17)
[2017-01-22] MEDS: LEVOTHYROXINE 100 MCG TAB PO SCH (20:17)
[2017-01-22] MEDS: ISOSORBIDE MONONITRATE ER 60 MG TAB.ER.24H PO SCH (20:17)
[2017-01-22] MEDS: GABAPENTIN 400 MG CAP PO SCH (20:17)
[2017-01-22] MEDS: FAMOTIDINE 20 MG TAB PO SCH (20:18)
[2017-01-22] MEDS: PANTOPRAZOLE 40 MG TABLET PO SCH (20:18)
[2017-01-22] MEDS: DONEPEZIL 10 MG TAB PO SCH (20:18)
[2017-01-22] MEDS: TAMSULOSIN 0.4 MG CAP.ER.24H PO SCH (20:18)
[2017-01-22] MEDS: ATORVASTATIN 20 MG TAB PO SCH (20:18)
[2017-01-22] MEDS: SENNOSIDES 8.6 MG TAB PO SCH (20:18)
[2017-01-22] MEDS: LEVOTHYROXINE 75 MCG TAB PO SCH (20:18)
--- NOTE | 2017-01-22 20:28 | CT ---
EXAMINATION TYPE: CT neck chest w con DATE OF EXAM: 01/22/2017 COMPARISON: Chest 01/11/2017 HISTORY: 81-year-old male complains of dysphagia and hoarseness of voice. TECHNIQUE: Contiguous axial scanning of the neck and chest performed with IV Contrast, patient inject ed with 100 mL of Omnipaque 300. Coronal/sagittal reconstructions performed. CT DLP: 1121.4 mGycm Automated exposure control for dose reduction was used. 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 Suspect prior cataract surgery on the right. Severe mucosal thickening posterior right eth moid air cells. Mastoid air cells show minimal opacification inferiorly. Nasopharynx is clear. Oropharynx appears clear. Prevertebral soft tissues and epiglottis are normal. The glottic and subglottic structures as well as the tracheal column appear clear. The thyroid gland is small. Submandibular glands and parotid glands appear satisfactory. Slight retropharyngeal course of the ICA. No suspicious cervical lymphadenopathy identified. Patient is edentulous. Endplate spondylosis mid to lower cervical spine. CHEST: The heart is normal size without pericardial effusion. Mild coronary vessel calcifications are presen t in remarkable for coronary artery disease. Ectasia of the ascending aorta at 3.6 cm conventional arch vessel branching anatomy. 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 Large caliber to the main right and left pulmonary arteries at 2.9 cm each compatible with underlying pulmonary arterial hypertension. No thoracic lymphadenopathy by CT size criteria. Evaluation of the lungs shows mild diffuse bronchial wall thickening, unchanged from prior, probably chronic bronchitis/asthma. Strandy scarring at the left greater than right lung bases. No consolidati on or pleural effusion. Visualized upper abdomen shows moderate stool burden. Bones: Scattered endplate Schmorl's nodes with mild degenerative disc disease seems to be some type o f the within the spinal canal extending up to the thoracoabdominal junction. IMPRESSION: NECK: 1. NO SUSPICIOUS MUCOSAL SPACE LESION OR LYMPHADENOPATHY IDENTIFIED. 2. SMALL AMOUNT OF TRAPPED FLUID IN THE INFERIOR MASTOID AIR CELLS ON BOTH SIDES. CORRELATE FOR ANY M ASTOID PAIN TO EXCLUDE MASTOIDITIS. 3. SMALL THYROID GLAND. CHEST: 1. LARGE RIGHT AND LEFT PULMONARY ARTERIES SUGGESTING UNDERLYING PULMONARY ARTERIAL HYPERTENSION. FUR THER WORKUP CLINICALLY INDICATED TO ETIOLOGY. 2. SIMILAR MILD DIFFUSE BRONCHIAL WALL THICKENING COULD REFLECT CHRONIC BRONCHITIS/ASTHMA.
[2017-01-22 20:31] LABS: Glucose,Whole Blood 171 mg/dL (75-99)
[2017-01-23] MEDS: IPRATROPIUM-ALBUTEROL 3 ML NEB INHALATION PRN ×2 (01:04→05:01)
[2017-01-23] MEDS: MORPHINE SULFATE 10 MG/ML SYRINGE IVP PRN ×2 (01:10→05:21)
[2017-01-23] MEDS: SYMBICORT 80-4.5 MCG INHALER INHALATION SCH ×2 (07:15→20:03)
[2017-01-23] MEDS: IPRATROPIUM-ALBUTEROL 3 ML NEB INHALATION SCH ×4 (07:15→20:00)
[2017-01-23] MEDS: predniSONE 20 MG TAB PO SCH (07:51)
[2017-01-23] MEDS: CLOTRIMAZOLE TROCHE 10 MG TROCHE MUCOUS MEM SCH ×3 (07:52→21:08)
[2017-01-23] MEDS: INSULIN LISPRO (humaLOG) 300 UNIT/3 ML VIAL SQ SCH ×4 (07:52→21:04)
[2017-01-23] MEDS: ENOXAPARIN 40 MG/0.4 ML SYRINGE SQ SCH (07:52)
[2017-01-23] MEDS: CEFUROXIME 250 MG TAB PO SCH ×2 (07:52→21:04)
[2017-01-23 08:03] LABS: Glucose,Whole Blood 112 mg/dL (75-99)
[2017-01-23 12:05] LABS: Glucose,Whole Blood 162 mg/dL (75-99)
[2017-01-23] MEDS: oxyCODONE-APAP 10-325MG 1 EACH TAB PO PRN ×2 (12:39→21:27)
[2017-01-23] MEDS: LORazepam 0.5 MG TAB PO PRN (12:39)
--- NOTE | 2017-01-23 15:59 | P.PN ---
Subjective Progress Note Date: 01/23/17 History of present illness: This is a very pleasant 81-year-old gentleman who follows with Dr. Elkins as his primary care physician. He has a history of hypertension and hypothyroidism hyperlipidemia. He also has a remote history of smoking. 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 Diaz in our office for the same. She was hospitalized twice this year for an acute COPD exacerbation. This is his third admission to the hospital. He came in with worsening shortness of breath suspecting pneumonia. Chest x-ray is free of any acute consolidation airspace disease. He is typically on 2 L of oxygen by nasal cannula. He's been utilizing his DuoNeb neb treatments at least 3-4 times a day. He has been in and out and has been exposed to radiation in temperature and humidity. He comes in with typical acute COPD exacerbation for now. No pleurisy. No hemoptysis. He was producing some limited amount of sputum. His chest wall was sore special with coughing and deep breathing. The patient has been having difficulties with swallowing and he has undergone a recent evaluation including an swallow evaluation that came back within normal limits. During his most recent hospitalization the patient and a computed tomography scan of the chest that showed no acute abnormalities. The patient also had a Lexiscan cardiac stress test that showed no evidence of any reversible ischemia On 01/18/2017 the patient is still having difficulty breathing. He has a congested cough. Still is producing some sputum in the sputum was sent for cultures and the cultures and sensitivities are still pending for now. No much improvement since yesterday. No angina. No aspiration. He is also limited with a dose of 40 mg every 8 hours. He is also on a combination of Levaquin and aztreonam. He is on broad without it is around the clock. No change in mental status. No fever. No chills. No signs of septicemia. No other significant events overnight. On 01/19/2017 the patient is not showing any signs of improvement. He still cough and out copious amount of purulent respiratory secretions. His bronchospastic and wheezy. Cultures from the sputum has been negative. He is on Ceftin orally. He is also on IV Solu-Medrol high-dose. On and off is having skeletal chest wall pain and burning in his chest related to his acute COPD exacerbation. No fever. No chills. No change in mental status. He has gained around 20 half pounds over the past 24 hours probably rates to fluids. On 01/20/2017 patient states he does not seem to have improved. He is resting in bed, he is trying to expectorate phlegm. The production of purulent sputum seems to have considerably decreased since yesterday, sputum culture has been sent and preliminary results are positive for some budding yeast, and gram- negative and gram-positive bacilli, however the final results are pending. Lung sounds are somewhat less rhonchorous, with diffuse wheezing. He is on oral Ceftin, his Solu-Medrol has been decreased to 40 every 8 hours per attending. Still having some skeletal wall pain and burning in his chest related to his acute tracheobronchitis. No fever, no chills. On 01/21/2017 and is resting in bed, he denies any distress. He continues to improve from pulmonary standpoint. Decreased production purulent sputum. Microbiology results have been reviewed and are negative so far. Patient remains afebrile, denies fever, or chills. Respirations are even and nonlabored , he is on room air with O2 saturation around 92%. Lung sounds are negative for wheezing. Equal air entry bilaterally with a few scattered rhonchi which is much improved from yesterday. He continues on oral Ceftin, Solu-Medrol has been switched to oral prednisone per attending. The patient is seen again today 01/22/2017 in follow-up on the regular medical floor. He is currently resting quite comfortably in bed. He is awake and alert in no acute distress. He still has ongoing complaints of difficulty in swallowing. He is tolerating a pureed diet. His breathing is improved today as compared to yesterday. Blood and sputum cultures revealed no growth. He remains on Ceftin. We'll continue with bronchodilators, Symbicort and prednisone taper. On today's evaluation of 01/22/2017, I'm pleased to report that the patient is breathing is improved. He is less short of breath. On and off coughing and for that reason he will be given Robitussin-DM. As part of the investigational for assistance in swallowing difficulties a CAT scan of the neck was also done that showed no acute abnormalities. He is having chronic back pain which is at his baseline. No change in mental status. He is miserable night if he has multiple medical problems and comorbidities. However his breathing is improved during this current hospitalization. I would anticipate discharge within next 24-48 hours. He is currently on DuoNeb nebulized treatments around the clock, Symbicort as maintenance, prednisone burst taper. He is on morphine sulfate for pain control. Objective - Vital Signs Vital signs: Vital Signs Temp 98.4 F 01/23/17 15:00 Pulse 92 01/23/17 15:26 Resp 18 01/23/17 15:00 BP 118/68 01/23/17 15:00 Pulse Ox 99 01/23/17 15:00 Intake & Output 01/22/17 01/23/17 01/23/17 18:59 06:59 18:59 Intake Total 650 1063 450 Output Total 200 Balance 450 1063 450 Weight 69.5 kg Intake: Oral 650 1063 450 Output: Urine 200 Other: Voiding Method Toilet Toilet Toilet # Voids 2 2 2 - Exam Head exam was generally normal. There was no scleral icterus or corneal arcus. Mucous membranes were moist.Neck was supple and without jugular venous distension, thyromegaly, or carotid bruits. Carotids were easily palpable bilaterally. There was no adenopathy. Lungs are diminished breath are improved and the patient is improved aeration and bilateral lung levi with limited wheezing only..Cardiac exam revealed the PMI to be normally situated and sized. The rhythm was regular and no extrasystoles were noted during several minutes of auscultation. The first and second heart sounds were normal and physiologic splitting of the second heart sound was noted. There were no murmurs, rubs, clicks, or gallops.Abdominal exam revealed normal bowel sounds. The abdomen was soft, non-tender, and without masses, organomegaly, or appreciable enlargement of the abdominal aorta.Examination of the extremities revealed easily palpable radial, femoral and pedal pulses. There was no cyanosis, clubbing or edema.Examination of the skin revealed no evidence of significant rashes, suspicious appearing nevi or other concerning lesions. Neurologically the patient is awake and alert and there is no focal neurological deficit. Muscular 7 exam shows no evidence of any acute arthritis and joint deformities. - Labs CBC & Chem 7: 01/22/17 01:17 01/22/17 01:17 Labs: Abnormal Lab Results - Last 24 Hours (Table) 01/22/17 01/22/17 01/23/17 Range/Units 17:41 20:30 07:48 POC Glucose (mg/dL) 153 H 171 H 112 H (75-99) mg/dL 01/23/17 Range/Units 11:53 POC Glucose (mg/dL) 162 H (75-99) mg/dL Assessment and Plan Plan: Impression: #1 Acute exacerbation of severe oxygen dependent chronic obstructive pulmonary disease, complicated by tracheobronchitis. There is no evidence of pneumonia based on the most recent CAT scan findings. Two-view chest x-ray from 2016 shows no evidence of focal airspace opacity or pleural effusion. Patient has advanced COPD and he is oxygen dependent for many years and he has chronic hypoxic respiratory failure. He has been maintained on Breo as maintenance on outpatient basis. #2 Hypertension. #3 Hyperlipidemia. #4 Hypothyroidism. #5 Rheumatoid arthritis. #6 Benign prostatic hypertrophy. #7 History of shingles. #8 recent evaluation for dysphagia and the workup has been negative. Plan The patient is improving in terms of his COPD exacerbation. Currently on a prednisone burst taper starting with 40 mg to be tapered by 10 mg every 4 days. He will be on Breo ellipta maintenance medication outpatient basis. Robitussin-DM for cough and congestion. I be done about treatments around the clock as needed. Pain control with morphine sulfate. Overall performance and functional status is poor. Swallow evaluation was done and the workup has been essentially negative for any abnormalities to contact attributed to his chronic dysphagia. We'll follow.
--- NOTE | 2017-01-23 17:46 | PN ---
PROGRESS NOTE DATE OF SERVICE: 01/23/2017 I am covering for Dr. Barajas. This 81-year-old gentleman with a past medical history of multiple medical problems was admitted with COPD acute exacerbation also has significant purulent tracheobronchitis also. Patient had significant difficulties in neck and Dr. Pepe was concerned and ordered CT scan of the neck which did not show acute abnormality except some minimal thyroid abnormalities. The patient is closely monitored at this time. The patient is short of breath at rest. No chest pain or palpitation. EXAM: Alert, oriented x3. Pulse 56, blood pressure 118/60, respiration 18, temperature 98.4, pulse ox 98% 2 L. HEENT: Conjunctivae normal. NECK: No jugular venous distention. CARDIOVASCULAR: S1, S2. RESPIRATORY: Breath sounds diminished in the bases. A few scattered rhonchi. No crackles. ABDOMEN: Soft, nontender. LEGS: No edema. NERVOUS SYSTEM: No focal deficits. LAB STUDIES: WBC 7, hemoglobin is 12, glucose 176. ASSESSMENT: 1. Chronic obstructive pulmonary disease acute exacerbation with acute purulent tracheobronchitis. 2. Bilateral chest pain, possible musculoskeletal, possibly pleurisy, rule out coronary disease. 3. Dysphagia for evaluation. 4. Gastroesophageal reflux disease. 5. Hypertension, hyperlipidemia. 6. Benign prostatic hypertrophy. 7. History of chronic rheumatoid arthritis. 8. Hypothyroidism. RECOMMENDATIONS AND DISCUSSION: I recommend to continue current management and continue symptomatic treatment. Otherwise at this time I recommend continue with bronchodilators. Continue with tapering dose of steroids increase ambulation. We will check room-air pulse ox. Otherwise the cardiac workup is negative so far. Recommend close follow up in the outpatient setting. The patient had significant respiratory comorbidities. MMODL / IJN: [id number] /
[2017-01-23 17:49] LABS: Glucose,Whole Blood 119 mg/dL (75-99)
[2017-01-23 20:41] LABS: Glucose,Whole Blood 137 mg/dL (75-99)
[2017-01-23] MEDS: GABAPENTIN 400 MG CAP PO SCH (21:04)
[2017-01-23] MEDS: TAMSULOSIN 0.4 MG CAP.ER.24H PO SCH (21:04)
[2017-01-23] MEDS: PANTOPRAZOLE 40 MG TABLET PO SCH (21:04)
[2017-01-23] MEDS: SENNOSIDES 8.6 MG TAB PO SCH (21:04)
[2017-01-23] MEDS: ISOSORBIDE MONONITRATE ER 60 MG TAB.ER.24H PO SCH (21:04)
[2017-01-23] MEDS: FAMOTIDINE 20 MG TAB PO SCH (21:04)
[2017-01-23] MEDS: ATORVASTATIN 20 MG TAB PO SCH (21:04)
[2017-01-23] MEDS: DONEPEZIL 10 MG TAB PO SCH (21:04)
[2017-01-23] MEDS: LEVOTHYROXINE 100 MCG TAB PO SCH (21:04)
[2017-01-23] MEDS: LEVOTHYROXINE 75 MCG TAB PO SCH (21:04)
[2017-01-24] MEDS: MORPHINE SULFATE 10 MG/ML SYRINGE IVP PRN (02:54)
[2017-01-24 07:38] LABS: Glucose,Whole Blood 81 mg/dL (75-99)
[2017-01-24] MEDS: IPRATROPIUM-ALBUTEROL 3 ML NEB INHALATION SCH ×2 (07:56→11:29)
[2017-01-24] MEDS: SYMBICORT 80-4.5 MCG INHALER INHALATION SCH (07:57)
[2017-01-24 07:59] VITALS: BP 127/74; RESP 18; TEMP 97.5
[2017-01-24] MEDS: INSULIN LISPRO (humaLOG) 300 UNIT/3 ML VIAL SQ SCH ×2 (08:03→12:36)
[2017-01-24] MEDS: CLOTRIMAZOLE TROCHE 10 MG TROCHE MUCOUS MEM SCH (08:04)
[2017-01-24] MEDS: predniSONE 20 MG TAB PO SCH (08:04)
[2017-01-24] MEDS: CEFUROXIME 250 MG TAB PO SCH (08:05)
[2017-01-24] MEDS: ENOXAPARIN 40 MG/0.4 ML SYRINGE SQ SCH (08:05)
[2017-01-24] MEDS: POLYETHYLENE GLYCOL 3350 17 GM POWD.PACK PO SCH (08:08)
--- NOTE | 2017-01-24 10:48 | P.PN ---
Subjective Progress Note Date: 01/24/17 Principal diagnosis: Acute exacerbation of chronic obstructive pulmonary disease, complicated by tracheal bronchitis. This is a very pleasant 81-year-old gentleman who follows with Dr. Elkins as his primary care physician. He has a history of hypertension and hypothyroidism hyperlipidemia. He also has a remote history of smoking. 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 Diaz in our office for the same. She was hospitalized twice this year for an acute COPD exacerbation. This is his third admission to the hospital. He came in with worsening shortness of breath suspecting pneumonia. Chest x-ray is free of any acute consolidation airspace disease. He is typically on 2 L of oxygen by nasal cannula. He's been utilizing his DuoNeb neb treatments at least 3-4 times a day. He has been in and out and has been exposed to radiation in temperature and humidity. He comes in with typical acute COPD exacerbation for now. No pleurisy. No hemoptysis. He was producing some limited amount of sputum. His chest wall was sore special with coughing and deep breathing. The patient has been having difficulties with swallowing and he has undergone a recent evaluation including an swallow evaluation that came back within normal limits. During his most recent hospitalization the patient and a computed tomography scan of the chest that showed no acute abnormalities. The patient also had a Lexiscan cardiac stress test that showed no evidence of any reversible ischemia On 01/18/2017 the patient is still having difficulty breathing. He has a congested cough. Still is producing some sputum in the sputum was sent for cultures and the cultures and sensitivities are still pending for now. No much improvement since yesterday. No angina. No aspiration. He is also limited with a dose of 40 mg every 8 hours. He is also on a combination of Levaquin and aztreonam. He is on broad without it is around the clock. No change in mental status. No fever. No chills. No signs of septicemia. No other significant events overnight. On 01/19/2017 the patient is not showing any signs of improvement. He still cough and out copious amount of purulent respiratory secretions. His bronchospastic and wheezy. Cultures from the sputum has been negative. He is on Ceftin orally. He is also on IV Solu-Medrol high-dose. On and off is having skeletal chest wall pain and burning in his chest related to his acute COPD exacerbation. No fever. No chills. No change in mental status. He has gained around 20 half pounds over the past 24 hours probably rates to fluids. On 01/20/2017 patient states he does not seem to have improved. He is resting in bed, he is trying to expectorate phlegm. The production of purulent sputum seems to have considerably decreased since yesterday, sputum culture has been sent and preliminary results are positive for some budding yeast, and gram- negative and gram-positive bacilli, however the final results are pending. Lung sounds are somewhat less rhonchorous, with diffuse wheezing. He is on oral Ceftin, his Solu-Medrol has been decreased to 40 every 8 hours per attending. Still having some skeletal wall pain and burning in his chest related to his acute tracheobronchitis. No fever, no chills. On 01/21/2017 and is resting in bed, he denies any distress. He continues to improve from pulmonary standpoint. Decreased production purulent sputum. Microbiology results have been reviewed and are negative so far. Patient remains afebrile, denies fever, or chills. Respirations are even and nonlabored , he is on room air with O2 saturation around 92%. Lung sounds are negative for wheezing. Equal air entry bilaterally with a few scattered rhonchi which is much improved from yesterday. He continues on oral Ceftin, Solu-Medrol has been switched to oral prednisone per attending. The patient is seen again today 01/22/2017 in follow-up on the regular medical floor. He is currently resting quite comfortably in bed. He is awake and alert in no acute distress. He still has ongoing complaints of difficulty in swallowing. He is tolerating a pureed diet. His breathing is improved today as compared to yesterday. Blood and sputum cultures revealed no growth. He remains on Ceftin. We'll continue with bronchodilators, Symbicort and prednisone taper. On today's evaluation of 01/23/2017, I'm pleased to report that the patient is breathing is improved. He is less short of breath. On and off coughing and for that reason he will be given Robitussin-DM. As part of the investigational for assistance in swallowing difficulties a CAT scan of the neck was also done that showed no acute abnormalities. He is having chronic back pain which is at his baseline. No change in mental status. He is miserable night if he has multiple medical problems and comorbidities. However his breathing is improved during this current hospitalization. I would anticipate discharge within next 24-48 hours. He is currently on DuoNeb nebulized treatments around the clock, Symbicort as maintenance, prednisone burst taper. He is on morphine sulfate for pain control. The patient is seen again today 01/24/2017 in follow-up on the regular medical floor. He is currently awake and alert in no acute distress. He is resting quite comfortably in bed. He states his breathing is improved today as compared to yesterday. He is maintaining good O2 saturations the upper 90s on 2 L/m per nasal cannula. He is afebrile. Sputum and blood cultures reveal no growth. Objective - Vital Signs Vital signs: Vital Signs Temp 97.5 F L 01/24/17 07:00 Pulse 80 01/24/17 08:08 Resp 18 01/24/17 07:00 BP 127/74 01/24/17 07:00 Pulse Ox 94 L 01/24/17 07:00 Intake & Output 01/23/17 01/24/17 01/24/17 18:59 06:59 18:59 Intake Total 450 750 Balance 450 750 Weight 82 kg Intake: Oral 450 750 Other: Voiding Method Toilet Toilet # Voids 2 1 - Exam GENERAL EXAM: Alert, active, comfortable in no apparent distress. HEAD: Normocephalic. EYES: Normal reaction of pupils, equal size. NOSE: Clear with pink turbinates. THROAT: No erythema or exudates. NECK: No masses, no JVD. CHEST: No chest wall deformity. LUNGS: Equal air entry with no wheeze, rales or dullness. Few scattered rhonchi present over posterior bases CVS: S1 and S2 normal with no audible murmurs, regular rhythm. ABDOMEN: No hepatosplenomegaly, normal bowel sounds, no guarding or rigidity. SPINE: No scoliosis or deformity SKIN: No rashes CENTRAL NERVOUS SYSTEM: No focal deficits, tone is normal in all 4 extremities. Extremities: There is no significant peripheral edema. No clubbing, no cyanosis. Peripheral pulses are intact. - Labs CBC & Chem 7: 01/22/17 01:17 01/22/17 01:17 Labs: Abnormal Lab Results - Last 24 Hours (Table) 01/23/17 01/23/17 01/23/17 Range/Units 11:53 17:29 20:20 POC Glucose (mg/dL) 162 H 119 H 137 H (75-99) mg/dL Assessment and Plan Plan: Impression: #1 Acute exacerbation of severe oxygen dependent chronic obstructive pulmonary disease, complicated by tracheobronchitis. There is no evidence of pneumonia based on the most recent CAT scan findings. Two-view chest x-ray from 2016 shows no evidence of focal airspace opacity or pleural effusion. Patient has advanced COPD and he is oxygen dependent for many years and he has chronic hypoxic respiratory failure. He has been maintained on Breo as maintenance on outpatient basis. #2 Hypertension. #3 Hyperlipidemia. #4 Hypothyroidism. #5 Rheumatoid arthritis. #6 Benign prostatic hypertrophy. #7 History of shingles. #8 Recent evaluation for dysphagia and the workup has been negative. PLAN The patient was seen and evaluated by Dr. Diaz. The patient is improved today as compared to yesterday. He is cleared for discharge from the pulmonary standpoint. We'll continue with his current medications. He will complete his course of antibiotics. Complete a prednisone taper. Follow-up in our office in 1 week's time. We will increase his activity as tolerated. We'll continue to follow. I, the cosigning physician, performed a history & physical examination of the patient. Lungs sounds continue with few scattered expiratory wheeze. Diminished. I discussed the assessment and plan with my nurse practitioner, Hailey Oh. I reviewed her note and agree with the documented findings and plan of care.
[2017-01-24 11:46] LABS: Glucose,Whole Blood 95 mg/dL (75-99)
[2017-01-24 12:34] VITALS: PULSE 83
[2017-01-24] MEDS: LORazepam 0.5 MG TAB PO PRN (13:09)
[2017-01-24] MEDS: oxyCODONE-APAP 10-325MG 1 EACH TAB PO PRN (14:51)
--- NOTE | 2017-01-24 16:17 | DS ---
DISCHARGE SUMMARY ATTENDING NOTE: This patient was seen and examined by me. I discussed the case with my nurse practitioner, Ade. Patient was admitted with COPD exacerbation with some tracheobronchitis. Patient had some trouble with swallowing but still able to eat a fair amount. Patient was seen by Speech. By the time of discharge, overall doing much better. Tolerating a diet. Wheezing has greatly improved. PHYSICAL EXAMINATION: LUNGS: Improved air entry. CARDIOVASCULAR: First and second sounds normal. Care was discussed with the patient. Patient is being cleared by Pulmonary to be discharged. The patient is to follow up with his respiratory care technician and Dr. Elkins. Home oxygen to continue. FINAL DIAGNOSIS: 1. Acute chronic obstructive pulmonary disease exacerbation in an ex-smoker complicated by acute tracheobronchitis; has completed a course of antibiotics. 2. Gastroesophageal reflux disease. 3. Essential hypertension. 4. Hyperlipidemia. 5. Benign prostatic hypertrophy. 6. 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 7. Hypothyroidism. 8. Chronic hypoxic respiratory failure from chronic obstructive pulmonary disease. 9. Colonic diverticulosis. 10.Alzheimer's dementia, late-onset type. 11.Restless legs syndrome. 12.Gait dysfunction; uses a walker. 13.Chronic pain syndrome; uses pain pump. 14.Mild functional dysphagia. Patient is able to tolerate his diet otherwise. MMODL / IJN: [id number] /
--- NOTE | 2017-01-24 18:48 | P.DS ---
Providers Date of admission: 01/15/17 23:46 Expected date of discharge: 01/24/17 Attending physician: Ralph Barajas Consults: 01/17/17 13:17 Consult Physician Routine Consulting Provider: Tee Pepe Consult Reason/Comments: SOB, pne Do you want consulting provider notified?: Already Contacted Primary care physician: Noble Berumenariana [facility] Course: FINAL DIAGNOSES: -acute chronic obstructive pulmonary disease exacerbation and an ex-smoker complicated by acute tracheobronchitis, has complete course of antibiotics. -Gastroesophageal reflux disease. -Essential hypertension. -Hyperlipidemia. -Benign prostatic hypertrophy. -Chronic rheumatoid arthritis multiple joints, bilateral. -Hypothyroidism. -Chronic hypoxic respiratory failure from chronic obstructive pulmonary disease. -Chronic diverticulosis. -Alzheimer's dementia, late onset type. -gait dysfunction, uses a walker. -Chronic pain syndrome, uses a pain pump. -Mild functional dysphasia, patient is able to tolerate his diet otherwise. HOSPTIAL COURSE: 81-year-old male who presented with worsening shortness of breath cough congestion bringing up sputum, decreased appetite and rundown. Uses a walker at baseline was admitted for acute COPD exacerbation.home medications reordered, cultures ordered,pulmonology consulted,patient was placed on antibiotics therapy , nebulized bronchodilators and IV steroids. patient's condition was slow to respond and did improve.breathing improved, no swallowing difficulties less coughing.tolerating his diet, ambulatory in the room and hansen, last BM 2 days ago. Marked improvement in patient's overall condition and he is stable for dischargeto home. PHYSICAL EXAM: CARDIOVASCULAR: first and second sounds noted no edema RESPIRATORY: respiratory effort mildly labored, lung sounds diminished bilaterallyscattered rhonchi posteriorly. MUSKULOSKELETAL:gait steady uses a walker to get about PSYCHIATRY: Alert and Oriented 3, Mood and Affect Anxious Patient was seen and examined by nurse practitioner Risa Booker in all elements of the case discussed with attending Dr. Barajas DISPOSITION:discharge home to the care of his family Patient Condition at Discharge: Fair Plan - Discharge Summary New Discharge Prescriptions: New Polyethylene Glycol 3350 [Miralax] 17 gm PO MOWEFR pack predniSONE 10 mg PO DAILY #30 tab Continue rOPINIRole HCL [Requip] 0.5 mg PO HS traZODone HCL 150 mg PO HS PRN PRN Reason: Insomnia Omeprazole 40 mg PO HS LORazepam [Ativan] 0.5 mg PO DAILY PRN PRN Reason: Anxiety Levothyroxine Sodium [Synthroid] 175 mcg PO HS Isosorbide Mononitrate ER [Imdur] 60 mg PO HS Gabapentin 800 mg PO HS Donepezil [Aricept] 10 mg PO HS Atorvastatin [Lipitor] 20 mg PO HS Tamsulosin HCl [Flomax] 0.4 mg PO HS Fluticasone/Vilanterol [Breo Ellipta 100-25 Mcg Inhaler] 1 puff INHALATION RT -DAILY oxyCODONE-APAP 10-325MG [Percocet 10-325 mg] 1 tab PO HS PRN PRN Reason: Pain Sennosides [Senokot] 8.6 mg PO HS LORazepam [Ativan] 0.5 mg PO HS Clotrimazole [place] [Mycelex [place]] 10 mg MUCOUS MEM TID Morphine Pain Pump 1 dose INTRATHECA CONTINUOUS Changed Ipratropium-Albuterol Nebulize [Duoneb 0.5 mg-3 mg/3 ml Soln] 3 ml INHALATION QID #0 Discontinued diphenhydrAMINE HCL [Benadryl] 25 mg PO HS Ranitidine HCl [Zantac] 300 mg PO HS Discharge Medication List Atorvastatin [Lipitor] 20 mg PO HS 06/30/16 [History] Donepezil [Aricept] 10 mg PO HS 06/30/16 [History] Gabapentin 800 mg PO HS 06/30/16 [History] Isosorbide Mononitrate ER [Imdur] 60 mg PO HS 06/30/16 [History] LORazepam [Ativan] 0.5 mg PO DAILY PRN 06/30/16 [History] Levothyroxine Sodium [Synthroid] 175 mcg PO HS 06/30/16 [History] Omeprazole 40 mg PO HS 06/30/16 [History] Tamsulosin HCl [Flomax] 0.4 mg PO HS 06/30/16 [History] rOPINIRole HCL [Requip] 0.5 mg PO HS 06/30/16 [History] traZODone HCL 150 mg PO HS PRN 06/30/16 [History] Clotrimazole [place] [Mycelex [place]] 10 mg MUCOUS MEM TID 12/20/16 [History] Fluticasone/Vilanterol [Breo Ellipta 100-25 Mcg Inhaler] 1 puff INHALATION RT- DAILY 12/20/16 [History] LORazepam [Ativan] 0.5 mg PO HS 12/20/16 [History] Morphine Pain Pump 1 dose INTRATHECA CONTINUOUS 12/20/16 [History] Sennosides [Senokot] 8.6 mg PO HS 12/20/16 [History] oxyCODONE-APAP 10-325MG [Percocet 10-325 mg] 1 tab PO HS PRN 12/20/16 [History] Ipratropium-Albuterol Nebulize [Duoneb 0.5 mg-3 mg/3 ml Soln] 3 ml INHALATION QID #0 01/24/17 [Rx] Polyethylene Glycol 3350 [Miralax] 17 gm PO MOWEFR pack 01/24/17 [Rx] predniSONE 10 mg PO DAILY #30 tab 01/24/17 [Rx] Follow up Appointment(s)/Referral(s): Noble Elkins MD [Primary Care Provider] - 01/27/17 1:00 pm Tee Pepe MD [STAFF PHYSICIAN] - 01/31/17 11:30 am Patient Instructions/Handouts: Prednisone (By mouth), COPD (Chronic Obstructive Pulmonary Disease) (DC), Bacterial Pneumonia (DC) Activity/Diet/Wound Care/Special Instructions: home o2 to continue Discharge Disposition: HOME SELF-CARE
== END 2017-01-24 15:19 | disposition home or self-care (01) | DRG 191 ==
LOC: EC 21:49 → 5MS5E 23:46
PROVIDERS: ADMIT Hospitalist; ATTEND Hospitalist
DX: J44.0 Chronic obstructive pulmonary disease with (acute) lower respiratory infection (principal); J96.11 Chronic respiratory failure with hypoxia; Z99.81 Dependence on supplemental oxygen; R13.10 Dysphagia, unspecified; J44.1 Chronic obstructive pulmonary disease with (acute) exacerbation; G30.1 Alzheimer's disease with late onset; F02.80 Dementia in other diseases classified elsewhere, unspecified severity, without behavioral disturbance, psychotic disturbance, mood disturbance, and anxiety; M06.9 Rheumatoid arthritis, unspecified; J20.9 Acute bronchitis, unspecified; I10 Essential (primary) hypertension; K21.9 Gastro-esophageal reflux disease without esophagitis; E78.5 Hyperlipidemia, unspecified; F41.9 Anxiety disorder, unspecified; N40.0 Benign prostatic hyperplasia without lower urinary tract symptoms; K57.30 Diverticulosis of large intestine without perforation or abscess without bleeding; R26.9 Unspecified abnormalities of gait and mobility; G89.4 Chronic pain syndrome; G25.81 Restless legs syndrome; G43.909 Migraine, unspecified, not intractable, without status migrainosus; H54.61 Unqualified visual loss, right eye, normal vision left eye; E03.9 Hypothyroidism, unspecified; R47.02 Dysphasia; M54.9 Dorsalgia, unspecified; Z79.899 Other long term (current) drug therapy; Z87.891 Personal history of nicotine dependence; Z96.1 Presence of intraocular lens; Z86.19 Personal history of other infectious and parasitic diseases; Z96.89 Presence of other specified functional implants; Z98.42 Cataract extraction status, left eye; Z88.0 Allergy status to penicillin; Z91.041 Radiographic dye allergy status
CPT/HCPCS: 36415; 70450; 70491; 71010; 71020; 71260; 74220; 80048; 80053; 82550; 82553; 83036; 83735; 83880; 84484; 85025; 85610; 85730; 87040; 87070; 87205; 93005; 94640; 94760; 96365; 96375; 99285

== ENCOUNTER 2017-02-18 11:33 | Day surgery (SDC) | payer MEDICARE, BC ==
[2017-02-17 11:19] VITALS: BMI 31.9
[~2017-02-18 11:33] MED LIST: LACTATED RINGERS 1,000 ML IV SCH
[2017-02-18 12:57] VITALS: RESP 16; TEMP 98.1
[2017-02-18 13:14] LABS: Glucose,Whole Blood 92 mg/dL (75-99)
[2017-02-18] MEDS ORDERED: PROPOFOL 10 MG/ML 20 ML VIAL IV ONE (14:07)
--- NOTE | 2017-02-18 14:22 | P.PCN ---
Date of Procedure: 02/18/17 Procedure(s) Performed: BRIEF HISTORY: Patient is a 81-year-old, pleasant, white male, scheduled for an upper endoscopy as a part of evaluation of intermittent dysphagia to solids and occasionally with liquids for the last several months duration. He feels the food gets stuck in the lower sternal area. He also has been having chronic hoarseness of his voice for the last several months.. He is hence scheduled for an upper endoscopy with possible dilation. PROCEDURE PERFORMED: Esophagogastroduodenoscopy with biopsy. PREOPERATIVE DIAGNOSIS: Intermittent dysphagia to solids and liquids for the last 6 months duration/chronic hoarseness. IV sedation per anesthesia. PROCEDURE: After informed consent was obtained, the patient was brought into the endoscopy unit. IV sedation was administered by Anesthesia under continuous monitoring. Initially the Olympus GIF-140 video endoscope was inserted into the mouth. Esophagus intubated without any difficulty. It was gradually advanced into the distal esophagus and the lower esophageal sphincter appeared somewhat tight and I had to push the scope and with moderate to the pressure the scope was advanced into the stomach and duodenum and carefully examined. The bulb and the second part of the duodenum appeared normal. The scope at this time was withdrawn to the stomach, adequately insufflated with air, and upon careful examination, mucosa of the antrum, had mild Antral gastritis and biopsies were done from this area. The body, cardia and the fundus appeared normal. The scope was then withdrawn into the esophagus. The GE junction was located at 39 cm from the incisors. Biopsies were done from the esophagus to rule out eosinophilic esophagitis The esophagus appeared normal. There were no erosions or ulcerations seen and the patient tolerated the procedure well. IMPRESSION: 1. Slightly tight lower esophageal sphincter but no evidence of obvious stricture. Rule out esophageal achalasia. 2. Mild antral gastritis. RECOMMENDATIONS: The findings of this examination were discussed with the patient as well as his family. At this time will await the biopsy results. If the biopsies are inconclusive or no obvious pathology identified, he will need to have esophageal manometry to evaluate for possible esophageal achalasia. He will be seen in office in one to 2 weeks
[2017-02-18 15:39] VITALS: BP 139/65; PULSE 62
== END 2017-02-18 16:07 | disposition home or self-care (01) ==
LOC: ORWHC2ENDO 11:33
PROVIDERS: ATTEND Internal Medicine Gastroenterology
DX: K21.9 Gastro-esophageal reflux disease without esophagitis (principal); K29.70 Gastritis, unspecified, without bleeding; I10 Essential (primary) hypertension; E78.5 Hyperlipidemia, unspecified; J44.9 Chronic obstructive pulmonary disease, unspecified; M06.9 Rheumatoid arthritis, unspecified; E07.9 Disorder of thyroid, unspecified; Z88.0 Allergy status to penicillin; Z91.041 Radiographic dye allergy status; Z79.51 Long term (current) use of inhaled steroids; Z79.891 Long term (current) use of opiate analgesic; Z79.899 Other long term (current) drug therapy; Z99.81 Dependence on supplemental oxygen
CPT/HCPCS: 43239; 88305; 88342; J2704

== ENCOUNTER 2017-04-24 15:29 | Observation (INO) | payer MEDICARE, BC ==
[2017-04-24] MEDS ORDERED: methylPREDNISolone SOD SUCCI 125 MG/2 ML VIAL IV STA (15:48)
[2017-04-24] MEDS ORDERED: IPRATROPIUM 0.5 MG/2.5 ML NEBU INHALATION STA (15:48)
[2017-04-24] MEDS ORDERED: ALBUTEROL NEBULIZED 2.5 MG/3 ML INHALATION STA (15:48)
[2017-04-24] MEDS ORDERED: MORPHINE SULFATE 2 MG/ML SYRINGE IVP STA (15:49)
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
[2017-04-24 16:03] LABS: Basophils % (A) 0 %; Eosinophils # (A) 0.1 k/uL (0-0.7); Eosinophils % (A) 1 %; HCT 41.5 % (39.0-53.0); HGB 13.3 gm/dL (13.0-17.5); Lymphocytes # (A) 1.8 k/uL (1.0-4.8); Lymphocytes % (A) 20 %; MCH 31.7 pg (25.0-35.0); MCHC 32.1 g/dL (31.0-37.0); Mean Platelet Volume 7.2; Monocytes # (A) 0.5 k/uL (0-1.0); Monocytes % (A) 5 %; Neutrophils # (A) 6.5 k/uL (1.3-7.7); Neutrophils % (A) 73 %; Platelet Count 135 k/uL (150-450); RDW 14.8 % (11.5-15.5)
[2017-04-24] MEDS ORDERED: diphenhydrAMINE 50 MG/ML 1 ML VIAL IVP STA ×2 (16:05→18:06)
[2017-04-24 16:18] LABS: ALT 25 U/L (21-72); AST 15 U/L (17-59); Albumin 3.3 g/dL (3.5-5.0); Alkaline Phosphatase 55 U/L (38-126); Anion Gap 8 mmol/L; Blood Urea Nitrogen 14 mg/dL (9-20); Carbon Dioxide 26 mmol/L (22-30); Chloride 107 mmol/L (98-107); Creatine Kinase 45 U/L (55-170); Glucose 89 mg/dL (74-99); Magnesium 2.1 mg/dL (1.6-2.3); Partial Thromboplastin Time 23.8 sec (22.0-30.0); Prothrombin Time 9.6 sec (9.0-12.0); Sodium 141 mmol/L (137-145); Total Bilirubin 0.8 mg/dL (0.2-1.3); Total Protein 5.6 g/dL (6.3-8.2)
[2017-04-24 16:19] LABS: Potassium 3.9 mmol/L (3.5-5.1)
[2017-04-24 16:29] LABS: Creatine Kinase MB 0.7 ng/mL (0.0-2.4); Troponin I <0.012 ng/mL (0.000-0.034)
[2017-04-24] MEDS ORDERED: SODIUM CHLORIDE 0.9% 250 ML IV ONE (16:45)
[2017-04-24] MEDS: SODIUM CHLORIDE 0.9% 1,000 ML IV SCH (16:59)
--- NOTE | 2017-04-24 17:08 | XR ---
EXAMINATION TYPE: XR chest 2V DATE OF EXAM: 04/24/2017 COMPARISON: 04/08/2017 HISTORY: Left-sided pain, pressure, and difficulty breathing. TECHNIQUE: Frontal and lateral views of the chest are obtained. FINDINGS: There is no pleural effusion or pneumothorax seen. The cardiac silhouette size is within normal limits. The osseous structures are intact. Similar probable prominent epicardial fat pad or chronic atelectasis is seen along the left ventricular apex in comparison to the prior exam of 04/08. Remainder the lungs are clear. Degenerative changes of the right acromioclavicular joint and g lenohumeral joints are again noted. IMPRESSION: Similar left basilar opacity in comparison to the prior exam and is felt to represent chronic atelect asis or a prominent epicardial fat pad. No acute cardiopulmonary pathology..
[2017-04-24] MEDS ORDERED: FAMOTIDINE 20 MG/2 ML VIAL IV STA (17:19)
[2017-04-24] MEDS ORDERED: RX INFO: IV CONTRAST WAS GIVEN 1 EACH MISC MISCELLANE PRN (17:56)
--- NOTE | 2017-04-24 18:53 | CT ---
EXAMINATION TYPE: CT angio chest DATE OF EXAM: 04/24/2017 COMPARISON: NONE HISTORY: Chest pain CT DLP: 546.1 mGycm. Automated Exposure Control for Dose Reduction was Utilized. CONTRAST: CTA scan of the thorax is performed with IV Contrast, patient injected with 100 mL of Omnipaque 350, pulmonary embolism protocol. MIP Images are created on CT scanner and reviewed. FINDINGS: LUNGS: Bibasilar subsegmental dependent atelectasis is noted. No focal consolidation is seen. Mild ri ght hemidiaphragm elevation is incidentally present. No bronchiectasis. No pleural effusion or pneumo thorax. The tracheobronchial tree is patent. MEDIASTINUM: There is somewhat suboptimal but interpretable enhancement of the pulmonary artery and i ts branches, there is no CT evidence for pulmonary embolism. There are no greater than 1 cm hilar or mediastinal lymph nodes. No cardiomegaly or pericardial effusion is seen. Heart is upper limits no rmal in size with moderate three-vessel coronary artery calcifications. OTHER: Moderate multilevel degenerative disc disease of the thoracic spine is present. IMPRESSION: 1. No evidence of pulmonary embolus. 2. Moderate three-vessel coronary artery calcifications, marker for coronary artery disease. 3. Bibasilar subsegmental atelectasis with no focal consolidation.
[2017-04-24] MEDS ORDERED: NALOXONE 0.4 MG/ML 1 ML VIAL IV PRN (18:58)
[2017-04-24] MEDS ORDERED: ACETAMINOPHEN TAB 325 MG TAB PO PRN (18:58)
[2017-04-24] MEDS ORDERED: ONDANSETRON 4 MG/2 ML VIAL IVP PRN (18:58)
[2017-04-24] MEDS ORDERED: LORazepam 0.5 MG TAB PO PRN (19:00)
[2017-04-24] MEDS ORDERED: ALBUTEROL NEBULIZED 2.5 MG/3 ML INHALATION PRN (19:00)
[2017-04-24] MEDS ORDERED: BUDESONIDE 0.5 MG/2 ML NEBU INHALATION SCH (20:00)
[2017-04-24] MEDS ORDERED: ALBUTEROL NEBULIZED 2.5 MG/3 ML INHALATION SCH (20:00)
[2017-04-24] MEDS ORDERED: GABAPENTIN 400 MG CAP PO PRN (20:31)
[2017-04-24] MEDS ORDERED: diphenhydrAMINE 25 MG CAP PO PRN (20:31)
[2017-04-24] MEDS ORDERED: NON-FORMULARY DRUG (Morphine Pain Pump 1 DOSE) INTRATHECA SCH (20:45)
[2017-04-24] MEDS: SYMBICORT 80-4.5 MCG INHALER INHALATION SCH (20:49)
[2017-04-24] MEDS ORDERED: LEVOTHYROXINE 88 MCG TAB PO SCH (21:00)
[2017-04-24] MEDS ORDERED: ATORVASTATIN 20 MG TAB PO SCH (21:00)
[2017-04-24] MEDS ORDERED: DONEPEZIL 10 MG TAB PO SCH (21:00)
[2017-04-24] MEDS ORDERED: ISOSORBIDE MONONITRATE ER 60 MG TAB.ER.24H PO SCH (21:00)
--- NOTE | 2017-04-24 21:10 | HP ---
HISTORY AND PHYSICAL DATE OF ADMISSION: 04/24/17 PRESENTING COMPLAINT: Chest pain. HISTORY OF PRESENTING COMPLAINT: This is an 82-year-old patient rather extensive medical history. Chronic stable medical conditions include GERD, hypertension, BPH, rheumatoid arthritis, home oxygen on 2 L, diverticulosis, restless leg syndrome, Alzheimer's dementia, also has got intrathecal pain pump with Dr. Hilliard. The patient says he presented with 1 day of pain going across the chest, simply hurt sometimes sharp, did go to his right shoulder. Some shortness of breath. No cough. No fever, the patient worse on taking a deep breath. Appetite is good. The patient at baseline uses a walker. REVIEW OF SYSTEMS: Constitutional: Tired. HEENT: Decreased hearing. Respiratory as above. Cardiovascular as above. Gastrointestinal heartburn. Genitourinary: None. Musculoskeletal: Pain in different joints, controlled. Dermatological, hematologic, lymphatics none. Psychiatry forgetful. Neurological: Restless legs syndrome. PAST MEDICAL HISTORY: COPD, GERD, hypertension, hyperlipidemia, BPH, rheumatoid arthritis, hypothyroid, home oxygen, diverticulosis, Alzheimer's dementia, restless legs syndrome, chronic pain syndrome with intrathecal pain pump. PAST SURGICAL HISTORY: Cardiac catheterization, right lens implant, bilateral foot surgery, repair of left index finger, bilateral rotator cuff repair. Intrathecal pain pump. SOCIAL HISTORY: Lives with daughter. Uses a walker. Smoked a pack a day for 11 years, stopped in 1962, alcohol occasionally. FAMILY HISTORY: Of TB and cirrhosis. MEDICATIONS: Home medications: 1. Trazodone 150 to 300 mg q.h.s. p.r.n. 2. Imdur ER 60 mg q.h.s. 3. DuoNeb q.i.d. 4. Gabapentin 800 mg p.o. b.i.d. p.r.n. 5. Breo Ellipta 100/25 1 puff q.h.s. 6. 10 mg p.o. q.h.s. 7. Lipitor 20 mg q.h.s. 8. Zantac 150 mg p.o. daily. 9. Omeprazole 20 mg p.o. q.h.s. 10.Multivitamin 1 tab p.o. daily. 11.Morphine pain pump. 12.Synthroid 125 mcg a day. 13.Ativan 0.5 p.o. t.i.d. p.r.n. 14.Requip 0.5 p.o. q.h.s. 15.Benadryl 25 p.o. daily p.r.n. 16.Flomax 0.4 mg q.h.s. 17.Senokot 8.6 mg p.o. q.h.s. ALLERGIES: IV CONTRAST AND PENICILLIN. EXAMINATION: Temperature 98, pulse 115, respirations 18, blood pressure 122/87, pulse ox 97% on 2 L. GENERAL APPEARANCE: Well built, BMI 29. Lying in bed, slightly anxious. Eyes pupils are equal. Conjunctivae normal HEENT: Oral cavity normal. Neck JVD not raised. Mass not palpable. Respiratory effort normal. Lungs slightly decreased breath sounds. Cardiovascular 1st and 2nd sounds no edema. Abdomen: Pain pump present. Soft, nontender. Liver and spleen not palpable. Lymphatics: No lymph nodes palpable in neck or axillae. Psychiatry: Alert and oriented x3 mood and affect anxious-appearing. Neurological: Pupils equal. Cranial nerves grossly intact. Power and sensation grossly intact. INVESTIGATIONS: White count 9, hemoglobin 13.3, potassium 3.9. BUN and creatinine is normal. Influenza A and B is negative. Chest CTA. No evidence of PE. ASSESSMENT: 1. This is a patient who presents 24 hours of chest pain more so with deep breathing. Chest CT was negative for pulmonary embolism. Troponins negative. EKG is nonspecific. Most likely patient underlying viral pleurisy could be musculoskeletal component. 2. Chronic obstructive pulmonary disease. 3. Gastroesophageal reflux disease. 4. Essential hypertension. 5. Hyperlipidemia. 6. Benign prostatic hypertrophy. 7. Chronic rheumatoid arthritis. 8. Hypothyroid. 9. Chronic hypoxic respiratory failure from chronic obstructive pulmonary disease. 10.Colonic diverticulosis. 11.Alzheimer's dementia late onset type. 12.Restless legs syndrome. 13.Gait dysfunction uses a walker. 14.Intrathecal pain pump for chronic pain syndrome. PLAN: Home medications are resumed. Care was discussed with the patient. Will give a pain pump. Patient wanted some IV pain medication. Did tell him he is already on intrathecal pain pump. Will consult Dr. Li from Pain Management. Also Cardiology and pulmonary will be consulted. Cardiac enzymes were negative. Copy to Dr. Elkins. MMODL / IJN: [id number] /
[2017-04-24 21:17] VITALS: BMI 29.7
[2017-04-24] MEDS: MORPHINE SULFATE 2 MG/ML SYRINGE IV PRN ×2 (21:22→23:50)
[2017-04-24] MEDS ORDERED: LEVOTHYROXINE 75 MCG TAB PO SCH (22:00)
[2017-04-24] MEDS ORDERED: LEVOTHYROXINE 100 MCG TAB PO SCH (22:00)
[2017-04-24 22:04] LABS: Creatine Kinase 64 U/L (55-170)
[2017-04-24 22:15] LABS: Troponin I <0.012 ng/mL (0.000-0.034)
[2017-04-25] MEDS: SODIUM CHLORIDE 0.9% 1,000 ML IV SCH ×2 (03:49→08:17)
[2017-04-25] MEDS: MORPHINE SULFATE 2 MG/ML SYRINGE IV PRN (03:50)
[2017-04-25 04:50] LABS: Creatine Kinase 61 U/L (55-170)
[2017-04-25 05:02] LABS: Creatine Kinase MB 0.9 ng/mL (0.0-2.4); Troponin I <0.012 ng/mL (0.000-0.034)
[2017-04-25] MEDS: IPRATROPIUM-ALBUTEROL 3 ML NEB INHALATION SCH ×2 (07:29→11:38)
[2017-04-25] MEDS: SYMBICORT 80-4.5 MCG INHALER INHALATION SCH (07:29)
[2017-04-25] MEDS ORDERED: NITROGLYCERIN SL TABS 0.4 MG TAB SUBLINGUAL ONE (08:03)
[2017-04-25] MEDS ORDERED: NITROGLYCERIN SL TABS 0.4 MG TAB SUBLINGUAL PRN (08:05)
[2017-04-25 08:19] VITALS: RESP 16
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
[2017-04-25 10:01] LABS: T4, Free (Free Thyroxine) 0.85 ng/dL (0.78-2.19)
[2017-04-25] MEDS ORDERED: traZODone HCL 50 MG TAB PO PRN (11:46)
[2017-04-25] MEDS ORDERED: MULTIVITAMINS, THERA 1 EACH TAB PO SCH (12:00)
[2017-04-25] MEDS ORDERED: CIPROFLOXACIN HCL 500 MG TAB PO SCH (12:00)
[2017-04-25] MEDS ORDERED: methylPREDNISolone SOD SUCCI 125 MG/2 ML VIAL IV SCH (12:00)
[2017-04-25] MEDS ORDERED: FAMOTIDINE 20 MG TAB PO SCH (12:00)
[2017-04-25 12:15] VITALS: BP 144/88; PULSE 86; TEMP 98.1
[2017-04-25 12:21] LABS: Glucose,Whole Blood 116 mg/dL (75-99)
[2017-04-25] MEDS ORDERED: INSULIN ASPART 100 UNIT/ML 1 ML 10 ML VIAL SQ SCH (12:30)
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
[2017-04-25] MEDS ORDERED: SENNOSIDES 8.6 MG TAB PO SCH (21:00)
[2017-04-25] MEDS ORDERED: TAMSULOSIN 0.4 MG CAP.ER.24H PO SCH (21:00)
[2017-04-25] MEDS ORDERED: PANTOPRAZOLE 40 MG TABLET PO SCH (21:00)
--- NOTE | 2017-04-26 07:12 | DS ---
DISCHARGE SUMMARY DATE OF ADMISSION: 04/24/2017 DATE OF DISCHARGE: 04/25/2017 FINAL DIAGNOSES: 1. Anterior chest wall pain, likely viral pleurisy and/or musculoskeletal. 2. Chronic obstructive pulmonary disease. 3. Gastroesophageal reflux disease. 4. Essential hypertension. 5. Hyperlipidemia. 6. Benign prostatic hypertrophy. 7. Chronic rheumatoid arthritis. 8. Hypothyroid. 9. Chronic hypoxic respiratory failure from chronic obstructive pulmonary disease. 10.Colonic diverticulosis. 11.Alzheimer's dementia, Late onset type. 12.Restless legs syndrome. 13.Gait dysfunction, uses a walker. 14.Intrathecal pain pump for chronic pain syndrome. HOSPITAL COURSE: This patient presents with some pain across the chest, especially worse with coughing and deep breath. PE was ruled out. [place] to be viral pleurisy, could be a musculoskeletal component. Seen by Dr. Joshua Nunez from Cardiology. No further cardiac workup per them. Also seen by Dr. Jones, cleared. ON EXAM: LUNGS: Decreased breath sounds. PSYCH: A/O x3. DISCHARGE MEDICATIONS: 1. Lipitor 20 mg q.h.s. 2. Aricept 10 mg q.h.s. 3. Gabapentin 800 mg b.i.d. and p.r.n. 4. Imdur ER 60 mg q.h.s. 5. Ativan 0.5 p.o. t.i.d. p.r.n. 6. Synthroid 175 mcg p.o. q.h.s. 7. Omeprazole 40 mg q.h.s. 8. Flomax 0.4 mg p.o. q.h.s. 9. Requip 0.5 mg p.o. q.h.s. 10.Trazodone 150 to 300 p.o. q.h.s. 11.Morphine pain pump. 12.Senokot 8.6 mg p.o. q.h.s. 13.Breo Ellipta 100/25 one puff q.h.s. 14.Benadryl 25 p.o. daily p.r.n. 15.DuoNeb q.i.d. 16.Multivitamins 1 tab p.o. daily. 17.Zantac 150 mg p.o. daily. Follow up with Dr. Elkins in 3 days. Follow with other consultants as per them. MMODL / IJN: [id number] /
--- NOTE | 2017-05-03 12:35 | CDI ---
Outpatient Documentation Clarification Form Date: 05-03-17 CDS/Gaming [employer] Boss Name: ZULEMA DONOVAN Phone: If you have question, contact Alysia Kumari [employer] Dropper at [phone] M-F 8:30 am to 6pm. Patient Name: SVEN MARX Admit Date: 04-24-17 Discharge Date: 04-25-17 ATTENTION: The Clinical Documentation Specialists (CDI) and [facility] Coding Staff appreciate your assistance in clarifying documentation. Please respond to the clarification below the line at the bottom and electronically sign. The CDI & [facility] Coding staff will review the response and follow-up if needed. Please note: Queries are made part of the Legal Health Record. If you have any questions, please contact the author of this message via ITS or call the Brick Dropper. Dr. Barajas, Please clarify if viral pleurisy was "ruled in" or "suspected". Thank you, Zulema Donovan MTDD
== END 2017-04-25 14:51 | disposition home or self-care (01) ==
LOC: EC 15:29 → 3SUR 18:58 → 3OBS 04-25 07:10
PROVIDERS: ADMIT Hospitalist; ATTEND Hospitalist
DX: R07.89 Other chest pain (principal); J44.1 Chronic obstructive pulmonary disease with (acute) exacerbation; K21.9 Gastro-esophageal reflux disease without esophagitis; I10 Essential (primary) hypertension; E78.5 Hyperlipidemia, unspecified; N40.0 Benign prostatic hyperplasia without lower urinary tract symptoms; M06.9 Rheumatoid arthritis, unspecified; E03.9 Hypothyroidism, unspecified; J96.11 Chronic respiratory failure with hypoxia; K57.30 Diverticulosis of large intestine without perforation or abscess without bleeding; G30.1 Alzheimer's disease with late onset; G25.81 Restless legs syndrome; R26.9 Unspecified abnormalities of gait and mobility; G89.4 Chronic pain syndrome; M54.9 Dorsalgia, unspecified; Z99.81 Dependence on supplemental oxygen; F02.80 Dementia in other diseases classified elsewhere, unspecified severity, without behavioral disturbance, psychotic disturbance, mood disturbance, and anxiety; R07.81 Pleurodynia; E87.2 Acidosis; Z87.891 Personal history of nicotine dependence; I25.10 Atherosclerotic heart disease of native coronary artery without angina pectoris; Z87.01 Personal history of pneumonia (recurrent); G43.909 Migraine, unspecified, not intractable, without status migrainosus; Z79.899 Other long term (current) drug therapy; Z80.1 Family history of malignant neoplasm of trachea, bronchus and lung; Z97.8 Presence of other specified devices; Z88.0 Allergy status to penicillin; Z91.041 Radiographic dye allergy status; N42.9 Disorder of prostate, unspecified; F41.9 Anxiety disorder, unspecified; R30.0 Dysuria; R06.82 Tachypnea, not elsewhere classified; R79.89 Other specified abnormal findings of blood chemistry; Z79.891 Long term (current) use of opiate analgesic
CPT/HCPCS: 99291; 96374 ×2; 96375 ×4; 96376 ×4; 96361; 36415; 94640 ×4; 94760 ×2; 93005; 85379; 84439; 83880; 80053; 84443; 82550 ×2; 82553 ×2; 83605; 83735; 84484 ×2; 85025; 85610; 85730; 87040; 87502; 83036; 71046; 71275; G0378 ×2; J1200; J2930 ×2; J2270 ×2

== ENCOUNTER → 2017-05-06 | Day surgery (SDC) | payer MEDICARE, BC ==
[2017-05-05 14:10] VITALS: BMI 31.1
[2017-05-06 13:04] VITALS: BP 112/68; PULSE 82; RESP 18; TEMP 98
--- NOTE | 2017-05-13 17:21 | PCN ---
PROCEDURE NOTE DATE OF DICTATION: May 13, 2017. REQUESTING PHYSICIAN: Dr. Fly Elkins. BRIEF HISTORY: The patient is an 82-year-old white male scheduled for a high-resolution impedance esophageal manometry as a part of evaluation of dysphagia to solids for the last few months duration. PROCEDURE: Performed high-resolution impedance esophageal manometry. PREOPERATIVE DIAGNOSIS: Dysphagia to solids. POSTOPERATIVE DIAGNOSIS: Normal esophageal manometry. DESCRIPTION OF PROCEDURE: After informed consent was obtained, the patient was brought into the endoscopy unit. The esophageal manometry catheter was passed from the external nostril into the esophagus and stomach and the study was performed after initial gastric baseline was achieved. The results were obtained with wet swallows including viscous swallows. She classic using standard high-resolution impedance manometry was used including waveform. Following are the study results: 1. Lower esophageal sphincter. A lower esophageal sphincter pressure study mean IRP 14 mmHg. Proximal location 41 cm, distal location 45 cm, total lower esophageal sphincter length is 4 cm. Mean lower esophageal sphincter pressure is 13 mmHg. 2. Lower esophageal body with Dulce classification mean DCI 4832 mmHg. ALEX 156 mmHg. Peristalsis 100%. Complete bolus transit 100% with liquids and complete bolus transit with viscous was 90%. 3. Upper esophageal sphincter, proximal location 16 cm distal location, 20 cm, total lower esophageal total length is 4 cm. Upper esophageal sphincter pressure is 66 mmHg. INTERPRETATION: The esophageal manometry study shows normal lower esophageal sphincter pressure with good relaxation and the motility pattern involving the esophageal body shows good peristalsis. No evidence of esophageal dysmotility noted. MMODL / IJN: [id number] /
== END ==
LOC: ORWHC2ENDO 12:33
PROVIDERS: ATTEND Internal Medicine Gastroenterology
DX: R13.10 Dysphagia, unspecified (principal)
CPT/HCPCS: 91010

== ENCOUNTER 2017-06-11 07:00 | Inpatient (IN) | payer MEDICARE, BC ==
[2017-06-11] MEDS ORDERED: SODIUM CHLORIDE 0.9% 1,000 ML IV STA (07:20)
[2017-06-11] MEDS ORDERED: methylPREDNISolone SOD SUCCI 125 MG/2 ML VIAL IV STA (07:20)
[2017-06-11] MEDS ORDERED: ALBUTEROL NEBULIZED 2.5 MG/3 ML INHALATION STA (07:20)
[2017-06-11] MEDS ORDERED: IPRATROPIUM 0.5 MG/2.5 ML NEBU INHALATION STA (07:20)
[2017-06-11 07:39] LABS: Basophils # (A) 0.1 k/uL (0-0.2); Basophils % (A) 1 %; Eosinophils # (A) 0.3 k/uL (0-0.7); Eosinophils % (A) 5 %; HCT 41.3 % (39.0-53.0); HGB 13.6 gm/dL (13.0-17.5); Lymphocytes # (A) 1.8 k/uL (1.0-4.8); Lymphocytes % (A) 30 %; MCH 32.2 pg (25.0-35.0); MCV 97.6 fL (80.0-100.0); Mean Platelet Volume 6.8; Monocytes # (A) 0.3 k/uL (0-1.0); Monocytes % (A) 6 %; Neutrophils # (A) 3.3 k/uL (1.3-7.7); Neutrophils % (A) 56 %; Platelet Count 153 k/uL (150-450); RBC 4.22 m/uL (4.30-5.90); RDW 13.5 % (11.5-15.5); WBC 5.9 k/uL (3.8-10.6)
[2017-06-11 07:50] LABS: ALT 19 U/L (21-72); AST 16 U/L (17-59); Albumin 3.8 g/dL (3.5-5.0); Alkaline Phosphatase 70 U/L (38-126); Anion Gap 11 mmol/L; Blood Urea Nitrogen 15 mg/dL (9-20); Calcium 9.3 mg/dL (8.4-10.2); Carbon Dioxide 28 mmol/L (22-30); Chloride 106 mmol/L (98-107); Glucose 97 mg/dL (74-99); Potassium 3.8 mmol/L (3.5-5.1); Sodium 145 mmol/L (137-145); Total Bilirubin 0.5 mg/dL (0.2-1.3); Total Protein 6.3 g/dL (6.3-8.2)
[2017-06-11 07:53] LABS: Partial Thromboplastin Time 25.5 sec (22.0-30.0); Prothrombin Time 9.7 sec (9.0-12.0)
[2017-06-11 08:00] LABS: Creatine Kinase 217 U/L (55-170)
[2017-06-11 08:13] LABS: Creatine Kinase MB 1.4 ng/mL (0.0-2.4); Troponin I <0.012 ng/mL (0.000-0.034)
--- NOTE | 2017-06-11 08:25 | XR ---
EXAMINATION TYPE: XR chest 1V portable DATE OF EXAM: 06/11/2017 COMPARISON: 04/24/2017 INDICATION: Short of breath TECHNIQUE: Single frontal view of the chest is obtained. FINDINGS: The heart size is normal. The pulmonary vasculature is normal. The lungs are clear. IMPRESSION: 1. No acute pulmonary process.
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
[2017-06-11] MEDS: methylPREDNISolone SOD SUCCI 125 MG/2 ML VIAL IV SCH ×3 (11:04→23:30)
[2017-06-11] MEDS: AZITHROMYCIN 500 MG TAB PO SCH (11:04)
[2017-06-11] MEDS: SODIUM CHLORIDE 0.9% 1,000 ML IV SCH (11:21)
[2017-06-11] MEDS: IPRATROPIUM-ALBUTEROL 3 ML NEB INHALATION SCH ×3 (12:46→19:34)
[2017-06-11] MEDS ORDERED: IBUPROFEN 800 MG TAB PO PRN (13:17)
[2017-06-11] MEDS ORDERED: NITROGLYCERIN SL TABS 0.4 MG TAB SUBLINGUAL PRN (13:17)
[2017-06-11] MEDS: LORazepam 0.5 MG TAB PO PRN ×2 (13:53→23:30)
[2017-06-11] MEDS: NON-FORMULARY DRUG (Morphine Pain Pump 1 DOSE) INTRATHECA SCH (13:56)
[2017-06-11] MEDS ORDERED: cefTRIAXone IN SWFI 1,000 MG/10 ML SYRINGE IVP SCH (14:00)
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
[2017-06-11] MEDS: GABAPENTIN 400 MG CAP PO SCH ×2 (15:23→20:45)
[2017-06-11 17:18] LABS: Glucose,Whole Blood 182 mg/dL (75-99)
[2017-06-11] MEDS: INSULIN ASPART 100 UNIT/ML 1 ML 10 ML VIAL SQ SCH ×2 (17:36→20:46)
[2017-06-11] MEDS: SYMBICORT 160-4.5 MCG INHALER INHALATION SCH (19:34)
[2017-06-11 20:41] LABS: Glucose,Whole Blood 166 mg/dL (75-99)
[2017-06-11] MEDS: ISOSORBIDE MONONITRATE ER 60 MG TAB.ER.24H PO SCH (20:44)
[2017-06-11] MEDS: traZODone HCL 50 MG TAB PO PRN (20:44)
[2017-06-11] MEDS: ATORVASTATIN 20 MG TAB PO SCH (20:44)
[2017-06-11] MEDS: LEVOTHYROXINE 75 MCG TAB PO SCH (20:44)
[2017-06-11] MEDS: SENNOSIDES 8.6 MG TAB PO SCH (20:45)
[2017-06-11] MEDS: LEVOTHYROXINE 100 MCG TAB PO SCH (20:45)
[2017-06-11] MEDS: DONEPEZIL 10 MG TAB PO SCH (20:45)
[2017-06-11] MEDS: TAMSULOSIN 0.4 MG CAP.ER.24H PO SCH (20:45)
[2017-06-11] MEDS: PANTOPRAZOLE 40 MG TABLET PO SCH (20:46)
--- NOTE | 2017-06-11 23:00 | HP ---
HISTORY AND PHYSICAL DATE OF SERVICE: 06/11/2017 CHIEF COMPLAINT: Shortness of breath. HISTORY OF PRESENT ILLNESS: This 82-year-old gentleman with a past medical history of multiple medical problems including history of asthma, COPD, GERD, hypertension, hyperlipidemia, rheumatoid arthritis, history of hypothyroidism being followed by Dr. Elkins in the outpatient setting, was complaining of shortness of breath and cough for the past 4 days. Patient unable to sleep last night. The patient on home O2. Patient did not have any recent contacts. With increasing cough and sputum the patient came to [facility] and admitted for further evaluation and treatment. On admission, the chest x- ray showed no acute pulmonary abnormality. This is no history of fever, rigors or chills. No history of headache, loss of consciousness or seizures. PAST MEDICAL HISTORY: History of asthma, COPD, GERD, hypertension, hyperlipidemia , history of prostate disease, history with rheumatoid arthritis. MEDICATIONS: Prior to admission include home medications are: 2. Multivitamins one p.o. daily. 3. Flomax 0.4. 4. Trazodone 150 mg q.h.s. p.r.n. 5. Requip 0.5 mg p.o. t.i.d. 6. Senokot 17.2 mg p.o. b.i.d. 7. Omeprazole 40 mg q.h.s. 8. Nitrostat 0.4 sublingual p.r.n. 9. Morphine pain pump. 10.Synthroid 125 mcg p.o. q.h.s. 11.Ativan 0.5 mg t.i.d. p.r.n. 12.Imdur 60 mg p.o. q.h.s. 13.DuoNeb q.i.d. 14.Motrin 800 mg q.8h p.r.n. 16.Aricept 10 mg p.o. q.h.s. 17.Lipitor 10 mg p.o. q.h.s. ALLERGIES: IODINATED CONTRAST AND PENICILLIN. FAMILY HISTORY: History of tuberculosis, cirrhosis of the liver and heavy smoking and drinking in the family. SOCIAL HISTORY: Previous history of smoking. No history of alcohol intake. No current smoking. REVIEW OF SYSTEMS: ENT: No diminished hearing or vision. CARDIOVASCULAR: As mentioned earlier. Respiratory: As mentioned earlier. GI no nausea. : No dysuria. Nervous system: No numbness, weakness. ALLERGY/IMMUNOLOGY: as mentioned earlier. Hematology/oncology: No history of anemia. Endocrine: No history of diabetes, hypothyroidism. Constitutional: As mentioned earlier. Dermatology: Negative. Rheumatology: Negative. Psychiatric: As mentioned earlier. PHYSICAL EXAMINATION: The patient is alert and oriented x3. Pulse is 110, blood pressure is 150/84, respiration 20, temperature 98 degrees, pulse ox 98% on 2 L. HEENT: Conjunctivae normal. Oral mucosa moist. Neck is no jugular venous distention. No carotid bruit. No lymph node enlargement. Cardiovascular S1, S2, no S3, no S4. RESPIRATORY: Breath sounds diminished in the bases. Bilateral scattered rhonchi and expiratory wheezing and crackles. ABDOMEN: Soft, nontender. No mass palpable. Legs no edema and no swelling. NERVOUS SYSTEM: Higher functions as mentioned earlier. Moves all 4 limbs. No focal motor or sensory deficits. Lymphatics: No lymph nodes palpable in the neck or axilla. Skin: No ulcer, rash, bleeding. LABS: WBC 5.9, hemoglobin 16.6, glucose 182. ASSESSMENT: 1. Chronic obstructive pulmonary disease, bronchial asthma acute exacerbation with acute purulent tracheobronchitis. 2. History of gastroesophageal reflux disease. 3. Hypertension. 4. History of hyperlipidemia. 5. History of pneumonia. 6. History of rheumatoid arthritis. 7. History of recent pneumonia. 8. History of chronic hypoxic respiratory failure. 9. History of degenerative joint disease. 10.History of anxiety. 11.Remote history of nicotine dependence. RECOMMENDATIONS AND DISCUSSION: In this 82-year-old gentleman who presented with multiple complex medical issues , we will monitor the patient closely. Continue the current medications, management and symptomatic treatment. Continue the broad-spectrum IV antibiotics. Steroids. Monitor blood sugars closely. Dr. Jones has been consulted. Further recommendations to follow. See orders for further details. MMODL / IJN: [id number] / MTDD
[2017-06-12] MEDS: IPRATROPIUM-ALBUTEROL 3 ML NEB INHALATION PRN (03:06)
[2017-06-12] MEDS: SODIUM CHLORIDE 0.9% 1,000 ML IV SCH (06:12)
[2017-06-12] MEDS: methylPREDNISolone SOD SUCCI 125 MG/2 ML VIAL IV SCH ×3 (06:12→17:50)
[2017-06-12 07:38] LABS: Glucose,Whole Blood 122 mg/dL (75-99)
[2017-06-12] MEDS: INSULIN ASPART 100 UNIT/ML 1 ML 10 ML VIAL SQ SCH ×4 (08:10→20:56)
[2017-06-12] MEDS: ENOXAPARIN 40 MG/0.4 ML SYRINGE SQ SCH (08:12)
[2017-06-12] MEDS: FAMOTIDINE 20 MG TAB PO SCH (08:12)
[2017-06-12] MEDS: GABAPENTIN 400 MG CAP PO SCH ×3 (08:12→20:46)
[2017-06-12] MEDS: AZITHROMYCIN 500 MG TAB PO SCH (08:13)
[2017-06-12] MEDS: SENNOSIDES 8.6 MG TAB PO SCH ×2 (08:13→20:47)
[2017-06-12 08:18] LABS: Basophils % (A) 0 %; Eosinophils % (A) 0 %; HCT 40.7 % (39.0-53.0); HGB 13.3 gm/dL (13.0-17.5); Lymphocytes # (A) 0.8 k/uL (1.0-4.8); Lymphocytes % (A) 7 %; MCH 32.1 pg (25.0-35.0); MCHC 32.7 g/dL (31.0-37.0); MCV 98.4 fL (80.0-100.0); Mean Platelet Volume 6.7; Monocytes # (A) 0.3 k/uL (0-1.0); Monocytes % (A) 2 %; Neutrophils # (A) 10.4 k/uL (1.3-7.7); Neutrophils % (A) 90 %; Platelet Count 163 k/uL (150-450); RBC 4.14 m/uL (4.30-5.90); RDW 13.5 % (11.5-15.5); WBC 11.5 k/uL (3.8-10.6)
[2017-06-12 08:29] LABS: Anion Gap 9 mmol/L; Blood Urea Nitrogen 21 mg/dL (9-20); Calcium 9.4 mg/dL (8.4-10.2); Carbon Dioxide 26 mmol/L (22-30); Chloride 107 mmol/L (98-107); Glucose 127 mg/dL (74-99); Potassium 4.4 mmol/L (3.5-5.1); Sodium 142 mmol/L (137-145)
[2017-06-12] MEDS: SYMBICORT 160-4.5 MCG INHALER INHALATION SCH ×2 (09:59→19:51)
[2017-06-12] MEDS: IPRATROPIUM-ALBUTEROL 3 ML NEB INHALATION SCH ×4 (09:59→19:51)
--- NOTE | 2017-06-12 12:11 | P.PN ---
Subjective Progress Note Date: 06/12/17 Principal diagnosis: COPD exacerbation Progress note dated 06/12/2017 This is an 83-year-old male well-known to our service. He sees one of my partners in his and my office for severe COPD. He came into the emergency room complaining of increasing shortness of breath difficulty breathing coughing wheezing and phlegm production. Has not been feeling well for about 3 days prior to his admission date which was on June 11. The patient states that he is not feeling much better today. Sees one of the family doctors in [place]. Still complains of increasing shortness of breath coughing wheezing chest congestion. He does have a history of addition to COPD of hyperlipidemia dementia hypothyroidism GERD BPH hypertension pneumonia rheumatoid arthritis and a number of other medical problems. Objective - Vital Signs Vital signs: Vital Signs Temp 100.2 F H 06/12/17 07:00 Pulse 90 06/12/17 10:10 Resp 24 06/12/17 07:00 BP 104/65 06/12/17 07:00 Pulse Ox 97 06/12/17 09:59 Intake & Output 06/11/17 06/12/17 06/12/17 18:59 06:59 18:59 Intake Total 1160 1200 Balance 1160 1200 Weight 97.069 kg Intake: Intake, IV Titration 1200 Amount Sodium Chloride 0.9% 1, 1200 000 ml @ 100 mls/hr IV . Q10H STA Rx#:[id number] Oral 1160 Other: Voiding Method Toilet - Exam No acute distress, oriented 3. Nasal O2 in place at 3 L HEENT examination is grossly unremarkable. Mucous membranes are moist. No oral lesions. Neck supple. Full range of motion. No adenopathy thyromegaly or neck vein distention. Cardiovascular examination reveals regular rhythm rate. S1-S2 normal. No S3 or S4. No discernible murmur noted. Lungs reveal coarse inspiratory and expiratory rhonchi. He has high-pitched bilateral wheezes. Adventitious lung sounds are more prominent on forced maneuver. When he does forcibly exhale, he does cough and wheeze. Breath sounds are equal bilaterally. Abdomen soft bowel sounds are heard. No masses or tenderness. Extremities are intact. No cyanosis clubbing or edema. Skin is without rash or lesion. Neurologic examination is brief but nonfocal. - Labs CBC & Chem 7: 06/12/17 07:53 03/04/18 07:53 Labs: Abnormal Lab Results - Last 24 Hours (Table) 06/11/17 06/11/17 06/12/17 Range/Units 17:15 20:39 07:35 WBC (3.8-10.6) k/uL RBC (4.30-5.90) m/uL Neutrophils # (1.3-7.7) k/uL Lymphocytes # (1.0-4.8) k/uL BUN (9-20) mg/dL Glucose (74-99) mg/dL POC Glucose (mg/dL) 182 H 166 H 122 H (75-99) mg/dL 06/12/17 06/12/17 Range/Units 07:53 07:53 WBC 11.5 H (3.8-10.6) k/uL RBC 4.14 L (4.30-5.90) m/uL Neutrophils # 10.4 H (1.3-7.7) k/uL Lymphocytes # 0.8 L (1.0-4.8) k/uL BUN 21 H (9-20) mg/dL Glucose 127 H (74-99) mg/dL POC Glucose (mg/dL) (75-99) mg/dL Assessment and Plan Assessment: Assessment COPD exacerbation without katharina pneumonia History of gastroesophageal reflux disease Hypoxemic respiratory failure Hyperlipidemia Hypertension History of pneumonia History of BPH History of rheumatoid arthritis Hypothyroidism Chronic back pain. Migraine cephalgia Restless leg syndrome Diverticular disease Plan: Plan dated 06/11/2017 The patient's medications are reviewed. Adjustments will be made accordingly. Chest x-ray shows only COPD without evidence of pneumonia. The patient typically likes to be in the hospital for about 3-5 days. Quite honestly he looks pretty much at baseline. Probably a bit more wheezing a bronchospastic than normal. We'll make sure that he is on short acting beta agonist, short acting muscarinic antagonist, long-acting beta agonist, inhaled corticosteroids , systemic corticosteroids, and an oral antibiotic. Plan dated 06/12/2017 The patient states he does not feel much better. He was started on usual medications systemic corticosteroids antibiotics combination inhaled corticosteroid and long-acting beta agonist as well as a short acting agonist and short acting muscarinic antagonist. He usually takes about 4-5 days to turn around. I told me he probably will be discharged until Tuesday at the very earliest. We'll continue to follow. Prognosis is guarded. Additional recommendations are made. Time with Patient: Less than 30
[2017-06-12 12:21] LABS: Glucose,Whole Blood 153 mg/dL (75-99)
[2017-06-12] MEDS: NON-FORMULARY DRUG (Morphine Pain Pump 1 DOSE) INTRATHECA SCH (13:33)
[2017-06-12] MEDS: MULTIVITAMINS, THERA 1 EACH TAB PO SCH (13:35)
[2017-06-12 17:23] LABS: Hemoglobin A1C 5.6 % (4.0-6.0)
[2017-06-12 17:33] LABS: Glucose,Whole Blood 234 mg/dL (75-99)
--- NOTE | 2017-06-12 18:25 | PN ---
PROGRESS NOTE DATE OF SERVICE: 06/12/2017 This 82-year-old gentleman who was admitted with COPD acute exacerbation is being closely monitored at this time. The patient is still complaining of shortness of breath. The patient is on multiple bronchodilators. Dr. Jones is following the patient closely. No chest pain. No palpitations. No fever. PHYSICAL EXAM: Alert and oriented x3. Pulse 72, blood pressure 147/62, respiration 18, temperature 97 degrees, pulse ox 90% on 4 L. HEENT: Conjunctivae normal. NECK: No jugular venous distention. CARDIOVASCULAR: S1, S2 muffled. RESPIRATORY: Breath sounds diminished in the bases. Bilateral expiratory wheezing and crackles. ABDOMEN: Soft, nontender. No mass palpable. LEGS: No edema, no swelling. NERVOUS SYSTEM: Higher function as mentioned. Moves all four limbs. No focal deficits. LYMPHATICS: No lymphadenopathy in the neck, axillae, groin. SKIN: No ulcer, rash or bleeding. LABS: WBC 7.2, hemoglobin 13.2, sodium 140, potassium 4.4. ASSESSMENT: 1. Chronic obstructive pulmonary disease exacerbation with acute purulent tracheobronchitis. 2. History of gastroesophageal reflux disease. 3. Hypertension. 4. Hyperlipidemia. 5. History of pneumonia. 6. History of rheumatoid arthritis. 7. History of recent pneumonia. 8. History of chronic hypoxic respiratory failure. 9. History of degenerative joint disease. 10.History of anxiety. 11.Remote history of nicotine dependence. RECOMMENDATIONS AND DISCUSSION: Continue current management, continue symptomatic treatment. Continue the bronchodilators. Otherwise, continue with steroids. Closely follow with Dr. Jones. Guarded prognosis. Further recommendations to follow. MMODL / IJN: [id number] /
[2017-06-12 20:41] LABS: Glucose,Whole Blood 228 mg/dL (75-99)
[2017-06-12] MEDS: ATORVASTATIN 20 MG TAB PO SCH (20:46)
[2017-06-12] MEDS: DONEPEZIL 10 MG TAB PO SCH (20:46)
[2017-06-12] MEDS: ISOSORBIDE MONONITRATE ER 60 MG TAB.ER.24H PO SCH (20:46)
[2017-06-12] MEDS: PANTOPRAZOLE 40 MG TABLET PO SCH (20:46)
[2017-06-12] MEDS: LEVOTHYROXINE 75 MCG TAB PO SCH (20:46)
[2017-06-12] MEDS: LEVOTHYROXINE 100 MCG TAB PO SCH (20:46)
[2017-06-12] MEDS: traZODone HCL 50 MG TAB PO PRN (20:47)
[2017-06-12] MEDS: TAMSULOSIN 0.4 MG CAP.ER.24H PO SCH (20:47)
[2017-06-13] MEDS: methylPREDNISolone SOD SUCCI 125 MG/2 ML VIAL IV SCH ×4 (00:56→17:04)
[2017-06-13] MEDS: SODIUM CHLORIDE 0.9% 1,000 ML IV SCH (05:21)
[2017-06-13 07:14] LABS: Glucose,Whole Blood 162 mg/dL (75-99)
[2017-06-13] MEDS: SENNOSIDES 8.6 MG TAB PO SCH ×2 (08:22→22:17)
[2017-06-13] MEDS: GABAPENTIN 400 MG CAP PO SCH ×3 (08:23→22:18)
[2017-06-13] MEDS: ENOXAPARIN 40 MG/0.4 ML SYRINGE SQ SCH (08:23)
[2017-06-13] MEDS: INSULIN ASPART 100 UNIT/ML 1 ML 10 ML VIAL SQ SCH ×4 (08:23→22:18)
[2017-06-13] MEDS: FAMOTIDINE 20 MG TAB PO SCH (08:23)
[2017-06-13] MEDS: AZITHROMYCIN 500 MG TAB PO SCH (08:24)
[2017-06-13 08:59] LABS: HCT 40.4 % (39.0-53.0); HGB 12.7 gm/dL (13.0-17.5); MCH 31.4 pg (25.0-35.0); MCHC 31.3 g/dL (31.0-37.0); MCV 100.2 fL (80.0-100.0); RBC 4.03 m/uL (4.30-5.90); WBC 10.6 k/uL (3.8-10.6)
[2017-06-13 09:00] LABS: Basophils % (A) 0 %; Eosinophils % (A) 0 %; Lymphocytes # (A) 0.5 k/uL (1.0-4.8); Lymphocytes % (A) 5 %; Mean Platelet Volume 6.8; Monocytes # (A) 0.3 k/uL (0-1.0); Monocytes % (A) 3 %; Neutrophils # (A) 9.7 k/uL (1.3-7.7); Neutrophils % (A) 92 %; Platelet Count 154 k/uL (150-450); RDW 13.6 % (11.5-15.5)
[2017-06-13 09:02] LABS: Anion Gap 9 mmol/L; Blood Urea Nitrogen 21 mg/dL (9-20); Carbon Dioxide 26 mmol/L (22-30); Chloride 110 mmol/L (98-107); Glucose 159 mg/dL (74-99); Potassium 4.4 mmol/L (3.5-5.1); Sodium 145 mmol/L (137-145)
[2017-06-13] MEDS: SYMBICORT 160-4.5 MCG INHALER INHALATION SCH ×2 (09:05→19:54)
[2017-06-13] MEDS: IPRATROPIUM-ALBUTEROL 3 ML NEB INHALATION SCH ×4 (09:06→19:55)
[2017-06-13] MEDS: LORazepam 0.5 MG TAB PO PRN (09:27)
[2017-06-13] MEDS: MULTIVITAMINS, THERA 1 EACH TAB PO SCH (11:46)
[2017-06-13 12:36] LABS: Glucose,Whole Blood 148 mg/dL (75-99)
[2017-06-13] MEDS: NON-FORMULARY DRUG (Morphine Pain Pump 1 DOSE) INTRATHECA SCH (13:20)
--- NOTE | 2017-06-13 15:25 | P.PN ---
<Marta Herrera M - Last Filed: 06/13/17 15:17> Subjective Progress Note Date: 06/13/17 Principal diagnosis: Acute COPD exacerbation Progress note dated 06/12/2017 This is an 83-year-old male well-known to our service. He sees one of my partners in his and my office for severe COPD. He came into the emergency room complaining of increasing shortness of breath difficulty breathing coughing wheezing and phlegm production. Has not been feeling well for about 3 days prior to his admission date which was on June 11. The patient states that he is not feeling much better today. Sees one of the family doctors in [place]. Still complains of increasing shortness of breath coughing wheezing chest congestion. He does have a history of addition to COPD of hyperlipidemia dementia hypothyroidism GERD BPH hypertension pneumonia rheumatoid arthritis and a number of other medical problems. On 06/09/2017 patient denies any distress. Lung sounds positive for a few scattered crackles, but no wheezes or rhonchi noted. Patient was on 2 L per nasal cannula with O2 sat at 90%. Afebrile today, hemodynamically stable. His pressures are even and nonlabored. Continues on currently on Zithromax, nebulized treatments, Symbicort. Today's lab work was reviewed, there is no evidence of leukocytosis, hemoglobin 12.7, serum sodium is 145, potassium is 4.4 , chloride is 110, B1 is 21, creatinine 0.97. Continue with current plan of treatment Objective - Vital Signs Vital signs: Vital Signs Temp 98.9 F 06/13/17 07:00 Pulse 96 06/13/17 12:06 Resp 19 06/13/17 08:00 BP 113/87 06/13/17 07:00 Pulse Ox 98 06/13/17 07:00 Intake & Output 06/12/17 06/13/17 06/13/17 18:59 06:59 18:59 Other: Voiding Method Toilet Toilet # Voids 2 1 3 - Exam No acute distress, oriented 3. Nasal O2 in place at 3 L HEENT examination is grossly unremarkable. Mucous membranes are moist. No oral lesions. Neck supple. Full range of motion. No adenopathy thyromegaly or neck vein distention. Cardiovascular examination reveals regular rhythm rate. S1-S2 normal. No S3 or S4. No discernible murmur noted. Lungs reveal bibasilar crackles, no significant wheezing noted, overall lung sounds are improved from yesterday's exam. Abdomen soft bowel sounds are heard. No masses or tenderness. Extremities are intact. No cyanosis clubbing or edema. Skin is without rash or lesion. Neurologic examination is brief but nonfocal. - Labs CBC & Chem 7: 06/13/17 08:19 06/13/17 08:19 Labs: Abnormal Lab Results - Last 24 Hours (Table) 06/12/17 06/12/17 06/13/17 Range/Units 17:32 20:40 06:56 RBC (4.30-5.90) m/uL Hgb (13.0-17.5) gm/dL MCV (80.0-100.0) fL Neutrophils # (1.3-7.7) k/uL Lymphocytes # (1.0-4.8) k/uL Chloride (98-107) mmol/L BUN (9-20) mg/dL Glucose (74-99) mg/dL POC Glucose (mg/dL) 234 H 228 H 162 H (75-99) mg/dL 06/13/17 06/13/17 06/13/17 Range/Units 08:19 08:19 12:13 RBC 4.03 L (4.30-5.90) m/uL Hgb 12.7 L (13.0-17.5) gm/dL MCV 100.2 H (80.0-100.0) fL Neutrophils # 9.7 H (1.3-7.7) k/uL Lymphocytes # 0.5 L (1.0-4.8) k/uL Chloride 110 H (98-107) mmol/L BUN 21 H (9-20) mg/dL Glucose 159 H (74-99) mg/dL POC Glucose (mg/dL) 148 H (75-99) mg/dL Assessment and Plan Plan: Assessment: COPD exacerbation without katharina pneumonia History of gastroesophageal reflux disease Hypoxemic respiratory failure Hyperlipidemia Hypertension History of pneumonia History of BPH History of rheumatoid arthritis Hypothyroidism Chronic back pain. Migraine cephalgia Restless leg syndrome Diverticular disease Plan: Continue current treatment, continue Zithromax, nebulized treatments, Symbicort. Increase activity as tolerated. Considered for discharge in next 24 hours provided he continues to improve I performed a history & physical examination of the patient and discussed their management with my nurse practitioner, Marta Herrera. I reviewed the nurse practitioner's note and agree with the documented findings and plan of care. Lung sounds are positive for a few scattered crackles at the bases, no wheezes no rhonchi noted. The findings and the impression was discussed with the patient. I attest to the documentation by the nurse practitioner. Time with Patient: Less than 30 <Tee Pepe - Last Filed: 06/13/17 16:20> Objective - Vital Signs Vital signs: Vital Signs Temp 97.1 F L 06/13/17 15:51 Pulse 95 06/13/17 16:05 Resp 19 06/13/17 15:51 BP 101/64 06/13/17 15:51 Pulse Ox 95 06/13/17 15:51 Intake & Output 06/12/17 06/13/17 06/13/17 18:59 06:59 18:59 Other: Voiding Method Toilet Toilet # Voids 2 1 3 - Labs CBC & Chem 7: 06/13/17 08:19 06/13/17 08:19 Labs: Abnormal Lab Results - Last 24 Hours (Table) 06/12/17 06/12/17 06/13/17 Range/Units 17:32 20:40 06:56 RBC (4.30-5.90) m/uL Hgb (13.0-17.5) gm/dL MCV (80.0-100.0) fL Neutrophils # (1.3-7.7) k/uL Lymphocytes # (1.0-4.8) k/uL Chloride (98-107) mmol/L BUN (9-20) mg/dL Glucose (74-99) mg/dL POC Glucose (mg/dL) 234 H 228 H 162 H (75-99) mg/dL 06/13/17 06/13/17 06/13/17 Range/Units 08:19 08:19 12:13 RBC 4.03 L (4.30-5.90) m/uL Hgb 12.7 L (13.0-17.5) gm/dL MCV 100.2 H (80.0-100.0) fL Neutrophils # 9.7 H (1.3-7.7) k/uL Lymphocytes # 0.5 L (1.0-4.8) k/uL Chloride 110 H (98-107) mmol/L BUN 21 H (9-20) mg/dL Glucose 159 H (74-99) mg/dL POC Glucose (mg/dL) 148 H (75-99) mg/dL Assessment and Plan Plan: This is a joint evaluations was done along with a nurse practitioner. The patient is improving in terms of his COPD exacerbation. Continue same treatment. We'll continue to follow. The patient is less short of breath compared to yesterday. He is on Symbicort. He is on DuoNeb neb last treatment [id number]. Possible discharge in a.m.
[2017-06-13 17:25] LABS: Glucose,Whole Blood 138 mg/dL (75-99)
--- NOTE | 2017-06-13 18:54 | P.PN ---
Subjective Progress Note Date: 06/13/17 Progress note. Dictated for Dr. Figueredo. Interval history: This is an 82-year-old gentleman admitted with acute COPD exacerbation and multiple other medical issues. Maintained on nebulized bronchodilators, steroids, Zithromax. Wheezing improving, nonproductive cough. Denies chest pain, palpitations. Afebrile, T-max 100.2. Objective - Vital Signs Vital signs: Vital Signs Temp 97.1 F L 06/13/17 15:51 Pulse 96 06/13/17 16:23 Resp 18 06/13/17 16:00 BP 101/64 06/13/17 15:51 Pulse Ox 95 06/13/17 15:51 Intake & Output 06/12/17 06/13/17 06/13/17 18:59 06:59 18:59 Other: Voiding Method Toilet Toilet # Voids 2 1 2 - Exam PHYSICAL EXAM: VITAL SIGNS: As above GENERAL: Sitting up in bed, no acute distress HEENT: Conjunctivae normal. eyes normal. Oral mucosa moist NECK: No JVD. No thyroid enlargement. No LNs CARDIOVASCULAR: S1, S2 muffled. No murmur RESPIRATION: Breath sounds diminished in the bases. No rhonchi , improving bilateral expiratory wheezing and scattered crackles. ABDOMEN: Soft, nontender . No guarding. no masses palpable. Bowel sounds heard. LEGS: No edema. no swelling PSYCHIATRY: Alert and oriented -3, mood and affect normal. NERVOUS SYSTEM: Cranial N 2-12 grossly normal. Moves all 4 limbs. Diffuse weakness No focal deficits. Skin: no ulcer no rash Joints: No active swelling. No inflammation. Lymphatic system. No LN neck axilla or groin. - Labs CBC & Chem 7: 06/13/17 08:19 06/13/17 08:19 Labs: Abnormal Lab Results - Last 24 Hours (Table) 06/12/17 06/13/17 06/13/17 Range/Units 20:40 06:56 08:19 RBC 4.03 L (4.30-5.90) m/uL Hgb 12.7 L (13.0-17.5) gm/dL MCV 100.2 H (80.0-100.0) fL Neutrophils # 9.7 H (1.3-7.7) k/uL Lymphocytes # 0.5 L (1.0-4.8) k/uL Chloride (98-107) mmol/L BUN (9-20) mg/dL Glucose (74-99) mg/dL POC Glucose (mg/dL) 228 H 162 H (75-99) mg/dL 06/13/17 06/13/17 06/13/17 Range/Units 08:19 12:13 17:12 RBC (4.30-5.90) m/uL Hgb (13.0-17.5) gm/dL MCV (80.0-100.0) fL Neutrophils # (1.3-7.7) k/uL Lymphocytes # (1.0-4.8) k/uL Chloride 110 H (98-107) mmol/L BUN 21 H (9-20) mg/dL Glucose 159 H (74-99) mg/dL POC Glucose (mg/dL) 148 H 138 H (75-99) mg/dL Assessment and Plan Assessment: 1. Acute exacerbation COPD with acute purulent tracheobronchitis 2. Gastroesophageal reflux disease 3. Hypertension 4. Hyperlipidemia Plan: Continue on current medication regime ,monitoring and symptomatic treatment. Maintain nebulized bronchodilators, steroids, antibiotics. Follow closely with pulmonary. Further recommendations to follow. Discharge planning in progress for tomorrow pending pulmonary clearance. The impression and plan of care has been dictated as directed. : I performed a history and examination of this patient, discussed the same with the dictator. I agree with the dictator's note ,documented as a scribe. Any additional findings or plans will be noted.
[2017-06-13 20:35] LABS: Glucose,Whole Blood 146 mg/dL (75-99)
[2017-06-13] MEDS: DONEPEZIL 10 MG TAB PO SCH (22:16)
[2017-06-13] MEDS: ATORVASTATIN 20 MG TAB PO SCH (22:16)
[2017-06-13] MEDS: ISOSORBIDE MONONITRATE ER 60 MG TAB.ER.24H PO SCH (22:16)
[2017-06-13] MEDS: LEVOTHYROXINE 75 MCG TAB PO SCH (22:17)
[2017-06-13] MEDS: TAMSULOSIN 0.4 MG CAP.ER.24H PO SCH (22:17)
[2017-06-13] MEDS: LEVOTHYROXINE 100 MCG TAB PO SCH (22:17)
[2017-06-13] MEDS: PANTOPRAZOLE 40 MG TABLET PO SCH (22:17)
[2017-06-14] MEDS: ONDANSETRON 4 MG/2 ML VIAL IVP PRN ×3 (00:03→20:08)
[2017-06-14] MEDS: methylPREDNISolone SOD SUCCI 125 MG/2 ML VIAL IV SCH ×3 (00:03→13:13)
[2017-06-14] MEDS: SODIUM CHLORIDE 0.9% 1,000 ML IV SCH ×2 (00:04→16:52)
[2017-06-14] MEDS: traZODone HCL 50 MG TAB PO PRN ×2 (00:40→20:47)
[2017-06-14] MEDS: LORazepam 0.5 MG TAB PO PRN ×2 (02:10→23:55)
[2017-06-14] MEDS: IPRATROPIUM-ALBUTEROL 3 ML NEB INHALATION PRN (02:42)
[2017-06-14 07:04] LABS: Glucose,Whole Blood 151 mg/dL (75-99)
[2017-06-14] MEDS: IPRATROPIUM-ALBUTEROL 3 ML NEB INHALATION SCH ×4 (07:25→19:41)
[2017-06-14] MEDS: SYMBICORT 160-4.5 MCG INHALER INHALATION SCH ×2 (07:25→19:41)
[2017-06-14 07:37] LABS: Basophils % (A) 0 %; Eosinophils % (A) 1 %; HCT 37.1 % (39.0-53.0); HGB 12.3 gm/dL (13.0-17.5); Lymphocytes # (A) 0.2 k/uL (1.0-4.8); Lymphocytes % (A) 3 %; MCH 31.8 pg (25.0-35.0); MCHC 33.1 g/dL (31.0-37.0); MCV 96.2 fL (80.0-100.0); Mean Platelet Volume 6.9; Monocytes # (A) 0.2 k/uL (0-1.0); Monocytes % (A) 3 %; Neutrophils # (A) 7.1 k/uL (1.3-7.7); Neutrophils % (A) 93 %; Platelet Count 135 k/uL (150-450); RBC 3.86 m/uL (4.30-5.90); RDW 13.5 % (11.5-15.5); WBC 7.6 k/uL (3.8-10.6)
[2017-06-14] MEDS: ENOXAPARIN 40 MG/0.4 ML SYRINGE SQ SCH (08:02)
[2017-06-14] MEDS: FAMOTIDINE 20 MG TAB PO SCH (08:02)
[2017-06-14] MEDS: INSULIN ASPART 100 UNIT/ML 1 ML 10 ML VIAL SQ SCH ×4 (08:02→20:48)
[2017-06-14] MEDS: AZITHROMYCIN 500 MG TAB PO SCH (08:02)
[2017-06-14] MEDS: GABAPENTIN 400 MG CAP PO SCH ×3 (08:03→20:00)
[2017-06-14] MEDS: SENNOSIDES 8.6 MG TAB PO SCH (08:03)
[2017-06-14 08:08] LABS: Anion Gap 8 mmol/L; Blood Urea Nitrogen 29 mg/dL (9-20); Calcium 8.5 mg/dL (8.4-10.2); Carbon Dioxide 28 mmol/L (22-30); Chloride 110 mmol/L (98-107); Glucose 140 mg/dL (74-99); Potassium 4.5 mmol/L (3.5-5.1); Sodium 146 mmol/L (137-145)
[2017-06-14 12:44] LABS: Glucose,Whole Blood 130 mg/dL (75-99)
[2017-06-14] MEDS: MULTIVITAMINS, THERA 1 EACH TAB PO SCH (13:14)
--- NOTE | 2017-06-14 13:57 | P.PN ---
Subjective Progress Note Date: 06/14/17 Principal diagnosis: Acute COPD exacerbation Progress note dated 06/12/2017 This is an 83-year-old male well-known to our service. He sees one of my partners in his and my office for severe COPD. He came into the emergency room complaining of increasing shortness of breath difficulty breathing coughing wheezing and phlegm production. Has not been feeling well for about 3 days prior to his admission date which was on June 11. The patient states that he is not feeling much better today. Sees one of the family doctors in [place]. Still complains of increasing shortness of breath coughing wheezing chest congestion. He does have a history of addition to COPD of hyperlipidemia dementia hypothyroidism GERD BPH hypertension pneumonia rheumatoid arthritis and a number of other medical problems. On 06/13/2017 patient denies any distress. Lung sounds positive for a few scattered crackles, but no wheezes or rhonchi noted. Patient was on 2 L per nasal cannula with O2 sat at 90%. Afebrile today, hemodynamically stable. His pressures are even and nonlabored. Continues on currently on Zithromax, nebulized treatments, Symbicort. Today's lab work was reviewed, there is no evidence of leukocytosis, hemoglobin 12.7, serum sodium is 145, potassium is 4.4 , chloride is 110, B1 is 21, creatinine 0.97. Continue with current plan of treatment On 06/14/2017 patient seen in follow-up. He states he had a hard time last night, had an episode of nausea and vomiting. He was very anxious and short of breath. Was having some chest discomfort with it. He thinks he may have been related to his reflux, and receiving his nighttime medications later then he usually takes some. EKG was obtained, and did not show any acute abnormality. Patient received Zofran and Ativan with good relief. He also received a when necessary breathing treatment, he states he makes him feel shaky afterwards, but overall he is feeling better this morning. He has occasional productive cough with thick yellowish brown sputum. Patient's lung sounds reveal good air entry bilaterally, with only a few scattered crackles at the bases, no rhonchi or wheezing noted. Patient is afebrile, hemodynamically stable, he is on 2 L per nasal cannula with O2 sat at 95%. Today's lab work shows WBC of 7.6, hemoglobin of 12.3, sodium is 146, potassium is 4.5, BUN is 29, and creatinine is 1.02. Patient remains on a combination of Zithromax, Symbicort, DuoNeb, IV Solu-Medrol at 40 mg every 8 hours. He is on Pepcid for GI prophylaxis. From pulmonary standpoint he remains stable. Objective - Vital Signs Vital signs: Vital Signs Temp 98.1 F 06/14/17 05:54 Pulse 98 06/14/17 11:06 Resp 18 06/14/17 05:54 BP 112/63 06/14/17 05:54 Pulse Ox 95 06/14/17 07:29 Intake & Output 06/13/17 06/14/17 06/14/17 18:59 06:59 18:59 Other: Voiding Method Toilet Toilet Toilet # Voids 2 2 - Exam No acute distress, oriented 3. Nasal O2 in place at 3 L HEENT examination is grossly unremarkable. Mucous membranes are moist. No oral lesions. Neck supple. Full range of motion. No adenopathy thyromegaly or neck vein distention. Cardiovascular examination reveals regular rhythm rate. S1-S2 normal. No S3 or S4. No discernible murmur noted. Lungs reveal bibasilar crackles, no wheezing noted, no rhonchi. Abdomen soft bowel sounds are heard. No masses or tenderness. Extremities are intact. No cyanosis clubbing or edema. Skin is without rash or lesion. Neurologic examination is brief but nonfocal. - Labs CBC & Chem 7: 06/14/17 07:02 06/14/17 07:02 Labs: Abnormal Lab Results - Last 24 Hours (Table) 06/13/17 06/13/17 06/14/17 Range/Units 17:12 20:34 06:51 RBC (4.30-5.90) m/uL Hgb (13.0-17.5) gm/dL Hct (39.0-53.0) % Plt Count (150-450) k/uL Lymphocytes # (1.0-4.8) k/uL Sodium (137-145) mmol/L Chloride (98-107) mmol/L BUN (9-20) mg/dL Glucose (74-99) mg/dL POC Glucose (mg/dL) 138 H 146 H 151 H (75-99) mg/dL 06/14/17 06/14/17 06/14/17 Range/Units 07:02 07:02 12:39 RBC 3.86 L (4.30-5.90) m/uL Hgb 12.3 L (13.0-17.5) gm/dL Hct 37.1 L (39.0-53.0) % Plt Count 135 L (150-450) k/uL Lymphocytes # 0.2 L (1.0-4.8) k/uL Sodium 146 H (137-145) mmol/L Chloride 110 H (98-107) mmol/L BUN 29 H (9-20) mg/dL Glucose 140 H (74-99) mg/dL POC Glucose (mg/dL) 130 H (75-99) mg/dL Assessment and Plan Plan: Assessment: #1 COPD exacerbation without katharina pneumonia #2 History of gastroesophageal reflux disease #3 Hypoxemic respiratory failure #4 Hyperlipidemia #5 Hypertension #6 History of pneumonia #7 History of BPH #8 History of rheumatoid arthritis #9 Hypothyroidism #10 Chronic back pain. #11 Migraine cephalgia #12 Restless leg syndrome #13 Diverticular disease Plan: Patient continues to improve from pulmonary standpoint, did have an episode of nausea and vomiting, anxiety, shortness of breath last night, he thought he may have been brought on by the reflux, and receiving his nighttime medications later than usual. Lung sounds are negative for any wheezing or rhonchi. Patient did respond well to Zofran, and Ativan for anxiety. Continue with current plan of care. Continue empiric antibiotics, nebulized treatments, patient's Solu-Medrol was decreased down to 40 mg every 8 hours per attending physician. Continue to follow. I performed a history & physical examination of the patient and discussed their management with my nurse practitioner, Marta Herrera. I reviewed the nurse practitioner's note and agree with the documented findings and plan of care. Lung sounds are positive for a few scattered crackles at the bases, no wheezes no rhonchi noted. The findings and the impression was discussed with the patient. I attest to the documentation by the nurse practitioner. Time with Patient: Less than 30
[2017-06-14] MEDS ORDERED: LOPERAMIDE 2 MG CAP PO PRN (14:01)
[2017-06-14] MEDS: NON-FORMULARY DRUG (Morphine Pain Pump 1 DOSE) INTRATHECA SCH (14:52)
[2017-06-14] MEDS: methylPREDNISolone SOD SUCCI 40 MG/ML 1 ML VIAL IV SCH ×2 (16:59→23:52)
[2017-06-14 17:14] LABS: Glucose,Whole Blood 132 mg/dL (75-99)
--- NOTE | 2017-06-14 19:12 | P.PN ---
Subjective Progress Note Date: 06/14/17 Progress note. Dictated for Dr. Figueredo. Interval history: This is an 82-year-old gentleman admitted with acute COPD exacerbation and multiple other medical issues. Maintained on nebulized bronchodilators, steroids, Zithromax. Wheezing improving, nonproductive cough. Denies chest pain, palpitations. Afebrile, T-max 100.2. 06/14/17 maintained on Zithromax, DuoNeb nebs, IV steroids, Symbicort. Resting comfortably in bed, breathing improved, maintaining O2 sats of 99% on 2 L nasal cannula, which could be weaned off. Reports nausea and vomiting; bedpan at bedside with minimal amount of clear saliva. Reports multiple episodes of diarrhea, tested negative for C. difficile colitis. Afebrile. Objective - Vital Signs Vital signs: Vital Signs Temp 98.9 F 06/14/17 15:00 Pulse 98 06/14/17 15:15 Resp 16 06/14/17 15:00 BP 112/71 06/14/17 15:00 Pulse Ox 99 06/14/17 15:00 Intake & Output 06/14/17 06/14/17 06/15/17 06:59 18:59 06:59 Other: Voiding Method Toilet Toilet # Voids 2 1 # Bowel Movements 1 - Exam PHYSICAL EXAM: VITAL SIGNS: As above GENERAL: Sitting up in bed, no acute distress HEENT: Conjunctivae normal. eyes normal. Oral mucosa moist NECK: No JVD. No thyroid enlargement. No LNs CARDIOVASCULAR: S1, S2 muffled. No murmur RESPIRATION: Breath sounds diminished in the bases. Occasional Fine bibasilar crackles, No rhonchi ,no wheezing ABDOMEN: Soft, nontender . No guarding. no masses palpable. Positive Bowel sounds. LEGS: No edema. no swelling PSYCHIATRY: Alert and oriented -3, mood and affect normal. NERVOUS SYSTEM: Cranial N 2-12 grossly normal. Moves all 4 limbs. Diffuse weakness No focal deficits. Skin: no ulcer no rash Joints: No active swelling. No inflammation. Lymphatic system. No LN neck axilla or groin. - Labs CBC & Chem 7: 06/14/17 07:02 06/14/17 07:02 Labs: Abnormal Lab Results - Last 24 Hours (Table) 06/13/17 06/14/17 06/14/17 Range/Units 20:34 06:51 07:02 RBC 3.86 L (4.30-5.90) m/uL Hgb 12.3 L (13.0-17.5) gm/dL Hct 37.1 L (39.0-53.0) % Plt Count 135 L (150-450) k/uL Lymphocytes # 0.2 L (1.0-4.8) k/uL Sodium (137-145) mmol/L Chloride (98-107) mmol/L BUN (9-20) mg/dL Glucose (74-99) mg/dL POC Glucose (mg/dL) 146 H 151 H (75-99) mg/dL 06/14/17 06/14/17 06/14/17 Range/Units 07:02 12:39 17:03 RBC (4.30-5.90) m/uL Hgb (13.0-17.5) gm/dL Hct (39.0-53.0) % Plt Count (150-450) k/uL Lymphocytes # (1.0-4.8) k/uL Sodium 146 H (137-145) mmol/L Chloride 110 H (98-107) mmol/L BUN 29 H (9-20) mg/dL Glucose 140 H (74-99) mg/dL POC Glucose (mg/dL) 130 H 132 H (75-99) mg/dL Assessment and Plan Assessment: 1. Acute exacerbation COPD with acute purulent tracheobronchitis 2. Gastroesophageal reflux disease 3. Hypertension 4. Hyperlipidemia Plan: Continue on current medication regime ,monitoring and symptomatic treatment. Maintain nebulized bronchodilators, steroids, empiric antibiotics. Increase ambulation as tolerated with assistance. Discharge planning in progress for tomorrow pending pulmonary clearance. The impression and plan of care has been dictated as directed. : I performed a history and examination of this patient, discussed the same with the dictator. I agree with the dictator's note ,documented as a scribe. Any additional findings or plans will be noted.
[2017-06-14] MEDS: LEVOTHYROXINE 100 MCG TAB PO SCH (20:01)
[2017-06-14] MEDS: LEVOTHYROXINE 75 MCG TAB PO SCH (20:01)
[2017-06-14] MEDS: PANTOPRAZOLE 40 MG TABLET PO SCH (20:01)
[2017-06-14] MEDS: TAMSULOSIN 0.4 MG CAP.ER.24H PO SCH (20:01)
[2017-06-14] MEDS: ATORVASTATIN 20 MG TAB PO SCH (20:01)
[2017-06-14] MEDS: DONEPEZIL 10 MG TAB PO SCH (20:02)
[2017-06-14] MEDS: ISOSORBIDE MONONITRATE ER 60 MG TAB.ER.24H PO SCH (20:04)
[2017-06-14 20:34] LABS: Glucose,Whole Blood 146 mg/dL (75-99)
[2017-06-15 07:04] LABS: Glucose,Whole Blood 140 mg/dL (75-99)
[2017-06-15] MEDS: IPRATROPIUM-ALBUTEROL 3 ML NEB INHALATION SCH ×4 (07:09→20:14)
[2017-06-15] MEDS: SYMBICORT 160-4.5 MCG INHALER INHALATION SCH ×2 (07:09→20:14)
[2017-06-15] MEDS: INSULIN ASPART 100 UNIT/ML 1 ML 10 ML VIAL SQ SCH ×4 (07:45→21:22)
[2017-06-15] MEDS: AZITHROMYCIN 500 MG in SODIUM CHLORIDE 0.9% 250 ML IVPB SCH (07:46)
[2017-06-15] MEDS: methylPREDNISolone SOD SUCCI 40 MG/ML 1 ML VIAL IV SCH (07:46)
[2017-06-15] MEDS: ENOXAPARIN 40 MG/0.4 ML SYRINGE SQ SCH (07:47)
[2017-06-15] MEDS: FAMOTIDINE 20 MG TAB PO SCH (07:47)
[2017-06-15] MEDS: GABAPENTIN 400 MG CAP PO SCH ×3 (07:48→20:36)
[2017-06-15 09:36] LABS: Basophils % (A) 0 %; Eosinophils % (A) 0 %; HCT 36.9 % (39.0-53.0); Lymphocytes # (A) 0.3 k/uL (1.0-4.8); Lymphocytes % (A) 5 %; MCH 31.8 pg (25.0-35.0); MCHC 32.4 g/dL (31.0-37.0); Mean Platelet Volume 7.2; Monocytes # (A) 0.3 k/uL (0-1.0); Monocytes % (A) 5 %; Neutrophils # (A) 5.2 k/uL (1.3-7.7); Neutrophils % (A) 88 %; Platelet Count 116 k/uL (150-450); RBC 3.77 m/uL (4.30-5.90); RDW 13.5 % (11.5-15.5); WBC 5.9 k/uL (3.8-10.6)
[2017-06-15 11:22] LABS: Anion Gap 10 mmol/L; Blood Urea Nitrogen 33 mg/dL (9-20); Calcium 8.4 mg/dL (8.4-10.2); Carbon Dioxide 23 mmol/L (22-30); Chloride 111 mmol/L (98-107); Glucose 136 mg/dL (74-99); Potassium 4.3 mmol/L (3.5-5.1); Sodium 144 mmol/L (137-145)
[2017-06-15 11:53] LABS: Glucose,Whole Blood 152 mg/dL (75-99)
--- NOTE | 2017-06-15 12:04 | XR ---
Abdomen HISTORY: Lower abdomen pain Frontal view of the abdomen submitted on 2 images Lung bases are clear. There is no bowel obstruction or pneumoperitoneum. There is overlying artifact. Probable vascular calcifications are present within the pelvis. Stimulator generator present in the left gluteal region shows a lead coursing towards the spinal canal. IMPRESSION: Nonobstructive bowel gas pattern.
[2017-06-15] MEDS: MULTIVITAMINS, THERA 1 EACH TAB PO SCH (12:50)
[2017-06-15] MEDS: SODIUM CHLORIDE 0.9% 1,000 ML IV SCH (12:51)
[2017-06-15] MEDS: NON-FORMULARY DRUG (Morphine Pain Pump 1 DOSE) INTRATHECA SCH (12:51)
--- NOTE | 2017-06-15 16:51 | P.PN ---
Subjective Progress Note Date: 06/15/17 Principal diagnosis: Acute COPD exacerbation Progress note dated 06/12/2017 This is an 83-year-old male well-known to our service. He sees one of my partners in his and my office for severe COPD. He came into the emergency room complaining of increasing shortness of breath difficulty breathing coughing wheezing and phlegm production. Has not been feeling well for about 3 days prior to his admission date which was on June 11. The patient states that he is not feeling much better today. Sees one of the family doctors in [place]. Still complains of increasing shortness of breath coughing wheezing chest congestion. He does have a history of addition to COPD of hyperlipidemia dementia hypothyroidism GERD BPH hypertension pneumonia rheumatoid arthritis and a number of other medical problems. On 06/13/2017 patient denies any distress. Lung sounds positive for a few scattered crackles, but no wheezes or rhonchi noted. Patient was on 2 L per nasal cannula with O2 sat at 90%. Afebrile today, hemodynamically stable. His pressures are even and nonlabored. Continues on currently on Zithromax, nebulized treatments, Symbicort. Today's lab work was reviewed, there is no evidence of leukocytosis, hemoglobin 12.7, serum sodium is 145, potassium is 4.4 , chloride is 110, B1 is 21, creatinine 0.97. Continue with current plan of treatment On 06/14/2017 patient seen in follow-up. He states he had a hard time last night, had an episode of nausea and vomiting. He was very anxious and short of breath. Was having some chest discomfort with it. He thinks he may have been related to his reflux, and receiving his nighttime medications later then he usually takes some. EKG was obtained, and did not show any acute abnormality. Patient received Zofran and Ativan with good relief. He also received a when necessary breathing treatment, he states he makes him feel shaky afterwards, but overall he is feeling better this morning. He has occasional productive cough with thick yellowish brown sputum. Patient's lung sounds reveal good air entry bilaterally, with only a few scattered crackles at the bases, no rhonchi or wheezing noted. Patient is afebrile, hemodynamically stable, he is on 2 L per nasal cannula with O2 sat at 95%. Today's lab work shows WBC of 7.6, hemoglobin of 12.3, sodium is 146, potassium is 4.5, BUN is 29, and creatinine is 1.02. Patient remains on a combination of Zithromax, Symbicort, DuoNeb, IV Solu-Medrol at 40 mg every 8 hours. He is on Pepcid for GI prophylaxis. From pulmonary standpoint he remains stable. 06/15/2017 patient seen in follow-up. No further nausea or vomiting episodes today. Lung sounds are improved, only a few scattered wheezes. Patient is on room air, ambulating, tolerating activity well. Patient continues, abdominal x- ray showed nonobstructive bowel gas pattern. Lab shows WBC 5.9, 12.0, 6 sodium 144, potassium 4.3. Patient's tolerating oral intake is reporting some difficulty swallowing. Objective - Vital Signs Vital signs: Vital Signs Temp 98 F 06/15/17 15:00 Pulse 86 06/15/17 15:44 Resp 16 06/15/17 15:00 BP 108/57 06/15/17 15:00 Pulse Ox 94 L 06/15/17 15:00 Intake & Output 06/14/17 06/15/17 06/15/17 18:59 06:59 18:59 Other: Voiding Method Toilet Toilet # Voids 1 2 1 # Bowel Movements 1 1 - Exam No acute distress, oriented 3. Nasal O2 in place at 3 L HEENT examination is grossly unremarkable. Mucous membranes are moist. No oral lesions. Neck supple. Full range of motion. No adenopathy thyromegaly or neck vein distention. Cardiovascular examination reveals regular rhythm rate. S1-S2 normal. No S3 or S4. No discernible murmur noted. Lungs reveal a few bibasilar crackles, and a few end expiratory wheezes., Overall improved from previous exams. Abdomen soft bowel sounds are heard. No masses or tenderness. Extremities are intact. No cyanosis clubbing or edema. Skin is without rash or lesion. Neurologic examination is brief but nonfocal. - Labs CBC & Chem 7: 06/15/17 08:59 06/15/17 08:59 Labs: Abnormal Lab Results - Last 24 Hours (Table) 06/14/17 06/14/17 06/15/17 Range/Units 17:03 20:33 07:03 RBC (4.30-5.90) m/uL Hgb (13.0-17.5) gm/dL Hct (39.0-53.0) % Plt Count (150-450) k/uL Lymphocytes # (1.0-4.8) k/uL Chloride (98-107) mmol/L BUN (9-20) mg/dL Glucose (74-99) mg/dL POC Glucose (mg/dL) 132 H 146 H 140 H (75-99) mg/dL 06/15/17 06/15/17 06/15/17 Range/Units 08:59 08:59 11:52 RBC 3.77 L (4.30-5.90) m/uL Hgb 12.0 L (13.0-17.5) gm/dL Hct 36.9 L (39.0-53.0) % Plt Count 116 L (150-450) k/uL Lymphocytes # 0.3 L (1.0-4.8) k/uL Chloride 111 H (98-107) mmol/L BUN 33 H (9-20) mg/dL Glucose 136 H (74-99) mg/dL POC Glucose (mg/dL) 152 H (75-99) mg/dL Assessment and Plan Plan: Assessment: #1 COPD exacerbation without katharina pneumonia #2 History of gastroesophageal reflux disease #3 Hypoxemic respiratory failure #4 Hyperlipidemia #5 Hypertension #6 History of pneumonia #7 History of BPH #8 History of rheumatoid arthritis #9 Hypothyroidism #10 Chronic back pain. #11 Migraine cephalgia #12 Restless leg syndrome #13 Diverticular disease Plan: Patient remains stable from pulmonary standpoint, but signs are stable, patient is afebrile, on room air. Reports some swallowing difficulty, no further episodes of nausea or vomiting. continue current plan of care, prednisone, nebulized treatments, Symbicort, and Zithromax. I performed a history & physical examination of the patient and discussed their management with my nurse practitioner, Marta Herrera. I reviewed the nurse practitioner's note and agree with the documented findings and plan of care. Lung sounds are positive for a few scattered crackles at the bases, a few wheezes. The findings and the impression was discussed with the patient. I attest to the documentation by the nurse practitioner. Time with Patient: Less than 30
[2017-06-15 17:22] LABS: Glucose,Whole Blood 136 mg/dL (75-99)
--- NOTE | 2017-06-15 19:18 | P.PN ---
Subjective Progress Note Date: 06/15/17 Progress note. Dictated for Dr. Figueredo. Interval history: This is an 82-year-old gentleman admitted with acute COPD exacerbation and multiple other medical issues. Maintained on nebulized bronchodilators, steroids, Zithromax. Wheezing improving, nonproductive cough. Denies chest pain, palpitations. Afebrile, T-max 100.2. 06/14/17 maintained on Zithromax, DuoNeb nebs, IV steroids, Symbicort. Resting comfortably in bed, breathing improved, maintaining O2 sats of 99% on 2 L nasal cannula, which could be weaned off. Reports nausea and vomiting; bedpan at bedside with minimal amount of clear saliva. Reports multiple episodes of diarrhea, tested negative for C. difficile colitis. Afebrile. 06/15/17 diarrhea subsided. Currently complains of diffuse abdominal pain, no, bowel movement this morning. Abdominal x-ray reporting nonobstructive bowel gas pattern with no bowel obstruction or pneumoperitoneum. No nausea, vomiting. Patient also reports difficulty swallowing, mostly with his medications. Ambulating with in room, tolerated exertion well. Breathing continues to improve. Objective - Vital Signs Vital signs: Vital Signs Temp 98 F 06/15/17 15:00 Pulse 86 06/15/17 15:44 Resp 16 06/15/17 15:00 BP 108/57 06/15/17 15:00 Pulse Ox 94 L 06/15/17 15:00 Intake & Output 06/15/17 06/15/17 06/16/17 06:59 18:59 06:59 Other: Voiding Method Toilet # Voids 2 1 # Bowel Movements 1 - Exam PHYSICAL EXAM: VITAL SIGNS: As above GENERAL: Sitting up in bed, no acute distress HEENT: Conjunctivae normal. eyes normal. Oral mucosa moist NECK: No JVD. No thyroid enlargement. No LNs CARDIOVASCULAR: S1, S2 muffled. No murmur RESPIRATION: Improving, Breath sounds diminished in the bases. Occasional Fine bibasilar crackles, occasional fine expiratory wheezing ABDOMEN: Soft, nontender . No guarding. no masses palpable. Positive Bowel sounds. LEGS: No edema. no swelling PSYCHIATRY: Alert and oriented -3, mood and affect normal. NERVOUS SYSTEM: Cranial N 2-12 grossly normal. Moves all 4 limbs. Diffuse weakness No focal deficits. Skin: no ulcer no rash Joints: No active swelling. No inflammation. Lymphatic system. No LN neck axilla or groin. - Labs CBC & Chem 7: 06/15/17 08:59 06/15/17 08:59 Labs: Abnormal Lab Results - Last 24 Hours (Table) 06/14/17 06/15/17 06/15/17 Range/Units 20:33 07:03 08:59 RBC 3.77 L (4.30-5.90) m/uL Hgb 12.0 L (13.0-17.5) gm/dL Hct 36.9 L (39.0-53.0) % Plt Count 116 L (150-450) k/uL Lymphocytes # 0.3 L (1.0-4.8) k/uL Chloride (98-107) mmol/L BUN (9-20) mg/dL Glucose (74-99) mg/dL POC Glucose (mg/dL) 146 H 140 H (75-99) mg/dL 06/15/17 06/15/17 06/15/17 Range/Units 08:59 11:52 17:20 RBC (4.30-5.90) m/uL Hgb (13.0-17.5) gm/dL Hct (39.0-53.0) % Plt Count (150-450) k/uL Lymphocytes # (1.0-4.8) k/uL Chloride 111 H (98-107) mmol/L BUN 33 H (9-20) mg/dL Glucose 136 H (74-99) mg/dL POC Glucose (mg/dL) 152 H 136 H (75-99) mg/dL Assessment and Plan Assessment: 1. Acute exacerbation COPD with acute purulent tracheobronchitis 2. Gastroesophageal reflux disease 3. Hypertension 4. Hyperlipidemia Plan: Continue on current medication regime ,monitoring and symptomatic treatment. Maintain nebulized bronchodilators, steroids, empiric antibiotics. Increase ambulation as tolerated with assistance. Speech therapy consult .Discharge planning in progress for tomorrow pending pulmonary clearance. The impression and plan of care has been dictated as directed. : I performed a history and examination of this patient, discussed the same with the dictator. I agree with the dictator's note ,documented as a scribe. Any additional findings or plans will be noted.
[2017-06-15] MEDS: DONEPEZIL 10 MG TAB PO SCH (20:36)
[2017-06-15] MEDS: ISOSORBIDE MONONITRATE ER 60 MG TAB.ER.24H PO SCH (20:36)
[2017-06-15] MEDS: ATORVASTATIN 20 MG TAB PO SCH (20:36)
[2017-06-15] MEDS: LEVOTHYROXINE 75 MCG TAB PO SCH (20:36)
[2017-06-15] MEDS: TAMSULOSIN 0.4 MG CAP.ER.24H PO SCH (20:36)
[2017-06-15] MEDS: LEVOTHYROXINE 100 MCG TAB PO SCH (20:36)
[2017-06-15] MEDS: PANTOPRAZOLE 40 MG TABLET PO SCH (20:37)
[2017-06-15 20:46] LABS: Glucose,Whole Blood 137 mg/dL (75-99)
[2017-06-16 01:05] VITALS: TEMP 98.7
[2017-06-16 07:15] LABS: Glucose,Whole Blood 119 mg/dL (75-99)
[2017-06-16 07:33] VITALS: BP 102/61; RESP 16
[2017-06-16] MEDS: SYMBICORT 160-4.5 MCG INHALER INHALATION SCH (08:31)
[2017-06-16] MEDS: IPRATROPIUM-ALBUTEROL 3 ML NEB INHALATION SCH ×2 (08:31→12:35)
[2017-06-16 08:56] VITALS: PULSE 80
[2017-06-16] MEDS ORDERED: predniSONE 20 MG TAB PO SCH (09:00)
[2017-06-16 09:30] LABS: Basophils % (A) 0 %; Eosinophils % (A) 0 %; HCT 36.5 % (39.0-53.0); HGB 12.6 gm/dL (13.0-17.5); Lymphocytes # (A) 1.4 k/uL (1.0-4.8); Lymphocytes % (A) 23 %; MCH 32.8 pg (25.0-35.0); MCHC 34.4 g/dL (31.0-37.0); MCV 95.2 fL (80.0-100.0); Mean Platelet Volume 6.8; Monocytes # (A) 0.4 k/uL (0-1.0); Monocytes % (A) 7 %; Neutrophils # (A) 4.3 k/uL (1.3-7.7); Neutrophils % (A) 69 %; Platelet Count 108 k/uL (150-450); RBC 3.84 m/uL (4.30-5.90); RDW 13.4 % (11.5-15.5); WBC 6.3 k/uL (3.8-10.6)
[2017-06-16] MEDS: AZITHROMYCIN 500 MG in SODIUM CHLORIDE 0.9% 250 ML IVPB SCH (09:35)
[2017-06-16] MEDS: GABAPENTIN 400 MG CAP PO SCH (09:35)
[2017-06-16] MEDS: ENOXAPARIN 40 MG/0.4 ML SYRINGE SQ SCH (09:35)
[2017-06-16] MEDS: INSULIN ASPART 100 UNIT/ML 1 ML 10 ML VIAL SQ SCH (09:36)
[2017-06-16] MEDS: SODIUM CHLORIDE 0.9% 1,000 ML IV SCH (09:37)
[2017-06-16 09:42] LABS: Calcium 8.5 mg/dL (8.4-10.2); Potassium 4.1 mmol/L (3.5-5.1)
[2017-06-16 11:51] LABS: Glucose,Whole Blood 115 mg/dL (75-99)
[2017-06-16] MEDS: FAMOTIDINE 20 MG TAB PO SCH (12:37)
[2017-06-16] MEDS: MULTIVITAMINS, THERA 1 EACH TAB PO SCH (12:37)
[2017-06-17] MEDS ORDERED: AZITHROMYCIN 500 MG TAB PO SCH (09:00)
--- NOTE | 2017-06-18 19:25 | DS ---
DISCHARGE SUMMARY DATE OF ADMISSION: June 13, 2017. DATE OF DISCHARGE: June 16, 2017. FINAL DIAGNOSES: 1. Acute chronic obstructive pulmonary disease exacerbation with no evidence of pneumonia. 2. Gastroesophageal reflux disease. 3. Essential hypertension. 4. Hyperlipidemia. 5. Benign prostatic hypertrophy. 6. Chronic rheumatoid arthritis. 7. Hypothyroid. 8. Chronic hypoxic respiratory failure underlying chronic obstructive pulmonary disease. 9. Colonic diverticulosis. 10.Alzheimer's dementia late onset type. 11.Restless legs syndrome. 12.Gait dysfunction uses a walker. 13.Intrathecal pain pump for chronic pain syndrome. 14.Chronic gait dysfunction, using a walker. HOSPITAL COURSE: This patient presents with COPD exacerbation. Seen by Dr. Pepe from Pulmonary. Not felt to have pneumonia. Doing better by the time of discharge. On the date of discharge, care was discussed in detail with the patient and patient's daughter with whom he lives. Several questions were answered. Also discussed with the Pulmonary team for patient to be discharged. Discussion and discharge planning more than 35 minutes. DISCHARGE MEDICATIONS: 1. Lipitor 20 mg q.h.s. 2. Aricept 10 mg p.o. q.h.s. 3. Neurontin 800 mg t.i.d. 4. Imdur ER 60 mg q.h.s. 5. Ativan 0.5 p.o. t.i.d. p.r.n. 6. Synthroid 175 mcg p.o. q.h.s. 7. Omeprazole 40 mg q.h.s. 8. Flomax 0.428 mg p.o. q.h.s. 9. Requip 0.5 mg p.o. t.i.d. 10.Trazodone 150 mg q.h.s. p.r.n. 11.Morphine pain pump. 12.Senokot 17.2 mg p.o. b.i.d. 13.DuoNeb q.i.d. 14.Multivitamin 1 tab p.o. daily. 15.Zantac 300 mg p.o. daily. 16.Motrin 80 mg q.8. 17.Nitrostat 0.4 sublingual q.5h p.r.n. 18.Zithromax 100 mg p.o. daily 3 tablets. 19.Symbicort 160/4.5, 2 puffs b.i.d. 20.Prednisone taper. 21.Home oxygen to continue. 22.Pain pump to continue. FOLLOWUP: Follow up with Dr. Elkins on June 21, 2017. Follow up with Pulmonary in 10 days. Discussion and discharge planning more than [address] Elkins. SARA / ABUNDION: [id number] /
== END 2017-06-16 12:36 | disposition home health service (06) | DRG 191 ==
LOC: EC 07:00 → 4MS4W 09:44 → OBSVTOIN 06-13 20:02
PROVIDERS: ADMIT Hospitalist; ATTEND Hospitalist
DX: J44.0 Chronic obstructive pulmonary disease with (acute) lower respiratory infection (principal); J45.901 Unspecified asthma with (acute) exacerbation; J96.11 Chronic respiratory failure with hypoxia; Z99.81 Dependence on supplemental oxygen; R13.10 Dysphagia, unspecified; G30.1 Alzheimer's disease with late onset; F02.80 Dementia in other diseases classified elsewhere, unspecified severity, without behavioral disturbance, psychotic disturbance, mood disturbance, and anxiety; K21.9 Gastro-esophageal reflux disease without esophagitis; J20.9 Acute bronchitis, unspecified; J44.1 Chronic obstructive pulmonary disease with (acute) exacerbation; Z87.891 Personal history of nicotine dependence; E03.9 Hypothyroidism, unspecified; E78.5 Hyperlipidemia, unspecified; F41.9 Anxiety disorder, unspecified; G25.81 Restless legs syndrome; G43.909 Migraine, unspecified, not intractable, without status migrainosus; G89.4 Chronic pain syndrome; H54.61 Unqualified visual loss, right eye, normal vision left eye; Z98.42 Cataract extraction status, left eye; Z96.1 Presence of intraocular lens; I10 Essential (primary) hypertension; K57.30 Diverticulosis of large intestine without perforation or abscess without bleeding; M06.9 Rheumatoid arthritis, unspecified; M19.90 Unspecified osteoarthritis, unspecified site; N40.0 Benign prostatic hyperplasia without lower urinary tract symptoms; Z79.52 Long term (current) use of systemic steroids; Z79.899 Other long term (current) drug therapy; Z80.1 Family history of malignant neoplasm of trachea, bronchus and lung; Z82.49 Family history of ischemic heart disease and other diseases of the circulatory system; Z87.01 Personal history of pneumonia (recurrent); Z88.0 Allergy status to penicillin; Z91.041 Radiographic dye allergy status; Z79.890 Hormone replacement therapy; R26.9 Unspecified abnormalities of gait and mobility; R19.7 Diarrhea, unspecified; Z96.89 Presence of other specified functional implants; Z81.1 Family history of alcohol abuse and dependence; Z81.2 Family history of tobacco abuse and dependence; Z83.6 Family history of other diseases of the respiratory system
CPT/HCPCS: 36415; 71045; 74018; 80048; 80053; 82550; 82553; 83036; 83735; 83880; 84484; 85025; 85610; 85730; 87324; 87502; 93005; 94640; 94644; 94760; 96361; 96374; 99285

== ENCOUNTER 2017-06-27 12:23 | Inpatient (IN) | payer MEDICARE, BC ==
[2017-06-27] MEDS ORDERED: SODIUM CHLORIDE 0.9% 1,000 ML IV STA (12:25)
[2017-06-27] MEDS ORDERED: SODIUM CHLORIDE 0.9% 500 ML IV STA (12:25)
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
[2017-06-27 13:27] LABS: Basophils % (A) 0 %; Eosinophils # (A) 0.2 k/uL (0-0.7); Eosinophils % (A) 3 %; HCT 36.5 % (39.0-53.0); HGB 12.5 gm/dL (13.0-17.5); Lymphocytes % (A) 16 %; MCH 32.3 pg (25.0-35.0); MCHC 34.2 g/dL (31.0-37.0); MCV 94.4 fL (80.0-100.0); Mean Platelet Volume 12.9; Monocytes # (A) 0.3 k/uL (0-1.0); Monocytes % (A) 5 %; Neutrophils # (A) 4.7 k/uL (1.3-7.7); Neutrophils % (A) 74 %; Poikilocytosis Slight; RBC 3.87 m/uL (4.30-5.90); WBC 6.4 k/uL (3.8-10.6)
[2017-06-27 13:31] LABS: INR 0.9 (<1.2); Partial Thromboplastin Time 27.2 sec (22.0-30.0); Prothrombin Time 9.3 sec (9.0-12.0)
[2017-06-27 13:50] LABS: Platelet Count 117 k/uL (150-450)
--- NOTE | 2017-06-27 14:00 | XR ---
EXAMINATION TYPE: XR chest 2V DATE OF EXAM: 06/27/2017 COMPARISON: 06/11/2017 HISTORY: Difficulty breathing TECHNIQUE: Frontal and lateral views of the chest are obtained. FINDINGS: Right basilar subsegmental atelectasis is seen near the costophrenic angle as well as plate like left basilar atelectasis, unchanged from the prior. There is no focal air space opacity, pleural effusion, or pneumothorax seen. The cardiac silhouette size is upper limits of normal. The osseou s structures are intact. Minimal multilevel degenerative changes of the thoracic spine are noted. IMPRESSION: Platelike subsegmental bibasilar atelectasis with no focal consolidation.
[2017-06-27] MEDS ORDERED: methylPREDNISolone SOD SUCCI 125 MG/2 ML VIAL IV STA (14:20)
[2017-06-27 14:35] LABS: Albumin 3.2 g/dL (3.5-5.0); Calcium 8.5 mg/dL (8.4-10.2); Magnesium 2.3 mg/dL (1.6-2.3); Potassium 4.3 mmol/L (3.5-5.1); Total Bilirubin 0.7 mg/dL (0.2-1.3); Total Protein 5.5 g/dL (6.3-8.2)
[2017-06-27 14:44] LABS: Creatine Kinase 159 U/L (55-170)
[2017-06-27 14:58] LABS: Creatine Kinase MB 1.7 ng/mL (0.0-2.4); Troponin I <0.012 ng/mL (0.000-0.034)
[2017-06-27] MEDS: IPRATROPIUM-ALBUTEROL 3 ML NEB INHALATION SCH ×3 (15:57→20:01)
[2017-06-27] MEDS ORDERED: NITROGLYCERIN SL TABS 0.4 MG TAB SUBLINGUAL PRN (16:26)
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
[2017-06-27 16:52] VITALS: BMI 33.3
[2017-06-27] MEDS: NON-FORMULARY DRUG (Morphine Pain Pump 1 DOSE) INTRATHECA SCH (17:37)
[2017-06-27] MEDS: SYMBICORT 160-4.5 MCG INHALER INHALATION SCH (20:01)
[2017-06-27] MEDS: PANTOPRAZOLE 40 MG TABLET PO SCH (20:02)
[2017-06-27] MEDS: GABAPENTIN 400 MG CAP PO SCH (20:02)
[2017-06-27] MEDS: ISOSORBIDE MONONITRATE ER 60 MG TAB.ER.24H PO SCH (20:02)
[2017-06-27] MEDS: DOXYCYCLINE 50 MG CAP PO SCH (20:02)
[2017-06-27] MEDS: SENNOSIDES 8.6 MG TAB PO SCH (20:03)
[2017-06-27] MEDS: ATORVASTATIN 20 MG TAB PO SCH (20:03)
[2017-06-27] MEDS: LEVOTHYROXINE 100 MCG TAB PO SCH (20:03)
[2017-06-27] MEDS: LEVOTHYROXINE 75 MCG TAB PO SCH (20:03)
[2017-06-27] MEDS: DONEPEZIL 10 MG TAB PO SCH (20:04)
[2017-06-27] MEDS: traZODone HCL 50 MG TAB PO PRN (20:56)
[2017-06-27] MEDS: LORazepam 0.5 MG TAB PO PRN (20:56)
[2017-06-27] MEDS: TAMSULOSIN 0.4 MG CAP.ER.24H PO SCH (21:50)
[2017-06-27] MEDS: methylPREDNISolone SOD SUCCI 125 MG/2 ML VIAL IV SCH (23:18)
[2017-06-28] MEDS: IPRATROPIUM-ALBUTEROL 3 ML NEB INHALATION PRN ×3 (00:21→22:57)
[2017-06-28] MEDS: methylPREDNISolone SOD SUCCI 125 MG/2 ML VIAL IV SCH ×3 (06:13→17:17)
[2017-06-28] MEDS: SYMBICORT 160-4.5 MCG INHALER INHALATION SCH ×2 (07:31→19:40)
[2017-06-28] MEDS: IPRATROPIUM-ALBUTEROL 3 ML NEB INHALATION SCH ×4 (07:32→19:40)
[2017-06-28] MEDS: GABAPENTIN 400 MG CAP PO SCH ×3 (08:14→21:57)
[2017-06-28] MEDS: SENNOSIDES 8.6 MG TAB PO SCH ×2 (08:15→19:57)
[2017-06-28] MEDS: MULTIVITAMINS, THERA 1 EACH TAB PO SCH (12:03)
[2017-06-28] MEDS ORDERED: diphenhydrAMINE 25 MG CAP PO PRN (12:51)
[2017-06-28] MEDS: DOXYCYCLINE 50 MG CAP PO SCH ×2 (12:54→19:57)
[2017-06-28] MEDS ORDERED: SODIUM CHLORIDE 0.65% NASAL SPRAY 44 ML BTL NASAL PRN (13:44)
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
[2017-06-28] MEDS: NON-FORMULARY DRUG (Morphine Pain Pump 1 DOSE) INTRATHECA SCH (17:17)
--- NOTE | 2017-06-28 19:17 | P.PN ---
Subjective Progress Note Date: 06/28/17 Progress note being dictated for Dr. Tarango Interval history:82-year-old man with advanced the COPD came in with complaints of shadows were restarted couple days ago along with brownish sputum production patient denied any fever chills patient chest x-ray showed atelectasis without any significant pneumonic process. Patient weighs 2 L of oxygen at home. Patient had multiple hospitalization for COPD exacerbation had remote history of smoking. Review of Systems REVIEW OF SYSTEMS: CONSTITUTIONAL: No fever, no malaise, no fatigue. HEENT: No recent visual problems or hearing problems. Denied any sore throat. CARDIOVASCULAR: No chest pain, orthopnea, PND, no palpitations, no syncope. PULMONARY: no hemoptysis. GASTROINTESTINAL: No diarrhea, no nausea, no vomiting, no abdominal pain. Normoactive bowel sounds. NEUROLOGICAL: No headaches, no weakness, no numbness. HEMATOLOGICAL: Denies any bleeding or petechiae. GENITOURINARY: Denies any burning micturition, frequency, or urgency. MUSCULOSKELETAL/RHEUMATOLOGICAL: Denies any joint pain, swelling, or any muscle pain. ENDOCRINE: Denies any polyuria or polydipsia. The rest of the 14-point review of systems is negative. 06/28/2017 maintained on nebulized bronchodilators, steroids, antibiotics with breathing slowly improving. Complains of exertional shortness of breath. Reports mostly nonproductive cough with occasional minimal by mouth yellow sputum production. Good diet intake with no nausea vomiting or diarrhea. Denies chest pain, palpitations or increasing shortness of breath. Afebrile. Maintaining O2 sats in the mid 90s on 2 L nasal cannula. Objective - Vital Signs Vital signs: Vital Signs Temp 97.9 F 06/28/17 14:38 Pulse 86 06/28/17 15:10 Resp 18 06/28/17 14:38 BP 127/72 06/28/17 14:38 Pulse Ox 96 06/28/17 14:38 Intake & Output 06/28/17 06/28/17 06/29/17 06:59 18:59 06:59 Intake Total 300 Balance 300 Intake: Intake, IV Titration 300 Amount Sodium Chloride 0.9% 1, 300 000 ml @ 100 mls/hr IV . Q10H STA Rx#:[id number] Other: Voiding Method Toilet Urinal # Voids 1 2 # Bowel Movements 1 - Exam GENERAL: The patient is sitting up in bed, alert and oriented x3, no acute distress. Well developed, well nourished. HEENT: Pupils are round and equally reacting to light. EOMI. No scleral icterus. No conjunctival pallor. Normocephalic, atraumatic. CARDIOVASCULAR: S1 and S2 present. No murmurs, rubs, or gallops. PULMONARY: Rhonchus breath sounds bilaterally, scattered rhonchi and crackles throughout with diffuse expiratory wheezing, ABDOMEN: Soft, nontender, nondistended, normoactive bowel sounds. No palpable organomegaly. MUSCULOSKELETAL: No joint swelling or deformity. EXTREMITIES: No cyanosis, clubbing, or pedal edema. NEUROLOGICAL: Gross neurological examination did not reveal any focal deficits. SKIN: No rashes. - Labs CBC & Chem 7: 06/27/17 13:00 06/27/17 13:50 Assessment and Plan Assessment: -acute on chronic hypercapnic respiratory failure: Secondary to COPD exacerbation, tracheo bronchitis -Hypertension -hyperlipidemia -Rheumatoid arthritis -Hypothyroidism -Chronic low back pain with a pain pump in place. Plan: Continue on current medication regime ,monitoring and symptomatic treatment. Maintain nebulized bronchodilators, steroids and antibiotics. Follow closely with pulmonary. Increase activity as tolerated. Aggressive pulmonary toileting. The impression and plan of care has been dictated as directed. : I performed a history and examination of this patient, discussed the same with the dictator. I agree with the dictator's note ,documented as a scribe. Any additional findings or plans will be noted.
[2017-06-28] MEDS: ISOSORBIDE MONONITRATE ER 60 MG TAB.ER.24H PO SCH (19:57)
[2017-06-28] MEDS: ATORVASTATIN 20 MG TAB PO SCH (19:57)
[2017-06-28] MEDS: PANTOPRAZOLE 40 MG TABLET PO SCH (19:57)
[2017-06-28] MEDS: LEVOTHYROXINE 100 MCG TAB PO SCH (19:57)
[2017-06-28] MEDS: TAMSULOSIN 0.4 MG CAP.ER.24H PO SCH (19:57)
[2017-06-28] MEDS: DONEPEZIL 10 MG TAB PO SCH (19:57)
[2017-06-28 20:44] LABS: Glucose,Whole Blood 240 mg/dL (75-99)
[2017-06-28] MEDS: LORazepam 0.5 MG TAB PO PRN (21:57)
[2017-06-28] MEDS: LEVOTHYROXINE 75 MCG TAB PO SCH (21:57)
[2017-06-28] MEDS: INSULIN ASPART 100 UNIT/ML 1 ML 10 ML VIAL SQ SCH (21:58)
[2017-06-29] MEDS: traZODone HCL 50 MG TAB PO PRN ×2 (00:48→21:20)
[2017-06-29] MEDS: methylPREDNISolone SOD SUCCI 125 MG/2 ML VIAL IV SCH ×4 (00:57→17:26)
[2017-06-29 07:15] LABS: Glucose,Whole Blood 185 mg/dL (75-99)
[2017-06-29] MEDS: IPRATROPIUM-ALBUTEROL 3 ML NEB INHALATION SCH ×4 (07:33→21:03)
[2017-06-29] MEDS: SYMBICORT 160-4.5 MCG INHALER INHALATION SCH ×2 (07:49→21:03)
[2017-06-29 08:15] LABS: Basophils % (A) 0 %; Eosinophils % (A) 0 %; HCT 35.3 % (39.0-53.0); HGB 11.6 gm/dL (13.0-17.5); Lymphocytes # (A) 0.5 k/uL (1.0-4.8); Lymphocytes % (A) 5 %; MCH 31.6 pg (25.0-35.0); MCHC 32.9 g/dL (31.0-37.0); Mean Platelet Volume 7.4; Monocytes # (A) 0.2 k/uL (0-1.0); Monocytes % (A) 2 %; Neutrophils # (A) 8.6 k/uL (1.3-7.7); Neutrophils % (A) 92 %; Platelet Count 113 k/uL (150-450); RBC 3.67 m/uL (4.30-5.90); RDW 13.6 % (11.5-15.5); WBC 9.4 k/uL (3.8-10.6)
[2017-06-29] MEDS: INSULIN ASPART 100 UNIT/ML 1 ML 10 ML VIAL SQ SCH ×4 (08:38→21:25)
[2017-06-29] MEDS: DOXYCYCLINE 50 MG CAP PO SCH ×2 (08:39→20:32)
[2017-06-29] MEDS: SENNOSIDES 8.6 MG TAB PO SCH ×2 (08:40→20:31)
[2017-06-29] MEDS: GABAPENTIN 400 MG CAP PO SCH ×3 (08:40→21:20)
[2017-06-29 08:45] LABS: Calcium 8.6 mg/dL (8.4-10.2); Potassium 4.1 mmol/L (3.5-5.1)
[2017-06-29 11:39] LABS: Glucose,Whole Blood 209 mg/dL (75-99)
[2017-06-29] MEDS: MULTIVITAMINS, THERA 1 EACH TAB PO SCH (13:13)
--- NOTE | 2017-06-29 14:36 | P.PN ---
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 Elkins, who presented to the emergency department on 06/27/2017 at 1223 with complaints of increasing shortness of breath, chest congestion, productive cough, wheezing. He did have a fever in the emergency room with a temp of 101F, patient has a congested cough with occasional expectoration of dark brown sputum. Patient's chest x- ray showed atelectasis without any significant pneumonic process. Patient has an underlying chronic hypoxic respiratory failure secondary to COPD, he wears home O2 at 2 L/m. In the past few months patient has had multiple recurrent hospitalizations for COPD exacerbation. His maintenance inhalers include Breo- Ellipta, Duoneb. Patient's baseline FEV1 is 73% of predicted. Other medical history includes hypertension, hypothyroidism, GERD, BPH, rheumatoid arthritis, hyperlipidemia, dementia, diverticulitis, previous CVA. Patient follows with Dr. Diaz for his history of COPD. Patient has been afebrile while inpatient, hemodynamically stable. Lung sounds reveal significant wheezing and congestion. Patient was started on IV Solu-Medrol, Symbicort, and DuoNeb, doxycycline and was admitted for further management. On 06/29/2017 patient remains significantly wheezy, congested, dyspneic at rest. He states there is no improvement in his pulmonary condition. Currently on 3 L per nasal cannula with a pulse ox of 96%. He is afebrile, slightly tachycardic with a heart rate up to 118 BPM. Lung sounds positive for diffuse wheezes and rhonchi. At times she is able to bring up brown color sputum. He continues on combination of doxycycline, Symbicort, DuoNeb, IV steroids. In view of lack of improvement in patient's condition and his ongoing congestion, patient will be scheduled for bronchoscopy with BAL by Dr. Jones on Tuesday at 11 AM Objective - Vital Signs Vital signs: Vital Signs Temp 97.9 F 06/29/17 07:00 Pulse 102 H 06/29/17 11:25 Resp 20 06/29/17 09:41 BP 139/69 06/29/17 07:00 Pulse Ox 96 06/29/17 07:00 Intake & Output 06/28/17 06/29/1718 18:59 06:59 18:59 Intake Total 180 Balance 180 Intake: Oral 180 Other: Voiding Method Toilet Urinal # Voids 2 1 - Exam GENERAL EXAM: Alert, 82-year-old white male comfortable in no apparent distress. HEAD: Normocephalic/atraumatic. EYES: Normal reaction of pupils, equal size. Conjunctiva pink, sclera white. NOSE: Clear with pink turbinates. THROAT: No erythema or exudates. NECK: No masses, no JVD, no thyroid enlargement, no adenopathy. CHEST: No chest wall deformity. Symmetrical expansion. LUNGS: Equal air entry with diffuse wheezes, rhonchi and bibasilar crackles CVS: Regular rate and rhythm, normal S1 and S2, no gallops, no murmurs, no rubs ABDOMEN: Soft, nontender. No hepatosplenomegaly, normal bowel sounds, no guarding or rigidity. EXTREMITIES: No clubbing, no edema, no cyanosis, 2+ pulses and upper and lower extremities. MUSCULOSKELETAL: Muscle strength and tone normal. SPINE: No scoliosis or deformity SKIN: No rashes CENTRAL NERVOUS SYSTEM: Alert and oriented -3. No focal deficits, tone is normal in all 4 extremities. PSYCHIATRIC: Alert and oriented -3. Appropriate affect. Intact judgment and insight. - Labs CBC & Chem 7: 06/29/17 07:38 06/29/17 07:38 Labs: Abnormal Lab Results - Last 24 Hours (Table) 06/28/17 06/29/17 06/29/17 Range/Units 20:31 07:12 07:38 RBC 3.67 L (4.30-5.90) m/uL Hgb 11.6 L (13.0-17.5) gm/dL Hct 35.3 L (39.0-53.0) % Plt Count 113 L (150-450) k/uL Neutrophils # 8.6 H (1.3-7.7) k/uL Lymphocytes # 0.5 L (1.0-4.8) k/uL BUN (9-20) mg/dL Glucose (74-99) mg/dL POC Glucose (mg/dL) 240 H 185 H (75-99) mg/dL 06/29/17 06/29/17 Range/Units 07:38 11:22 RBC (4.30-5.90) m/uL Hgb (13.0-17.5) gm/dL Hct (39.0-53.0) % Plt Count (150-450) k/uL Neutrophils # (1.3-7.7) k/uL Lymphocytes # (1.0-4.8) k/uL BUN 27 H (9-20) mg/dL Glucose 156 H (74-99) mg/dL POC Glucose (mg/dL) 209 H (75-99) mg/dL Assessment and Plan Plan: Assessment: #1. 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 Chest x-ray did not show any evidence of pneumonia #2. Recurrent hospitalizations for COPD exacerbation, most recently hospitalized 2 weeks ago, discharged home on 06/18/2017 #3. Moderately severe COPD, with a baseline FEV1 of 73% of predicted, oxygen dependent, GOLD stage II #3. Gastroesophageal reflux disease #4. Hypertension, hyperlipidemia #5. History of BPH #6. Chronic rheumatoid arthritis #7. Hypothyroidism #8. Dementia #9. Chronic gait dysfunction #10. History of pseudomonal pneumonia #11. Restless leg syndrome #12. Chronic back pain Plan: Continue current plan of care, continue current antibiotic coverage, nebulized treatments, IV steroids. Patient reports no improvement with his chest congestion, wheezing and dyspnea. Patient will be boarded for a bronchoscopy with BAL by Dr. Jones on Tuesday 11 AM. I performed a history & physical examination of the patient and discussed their management with my nurse practitioner, Marta Herrera. I reviewed the nurse practitioner's note and agree with the documented findings and plan of care. Lung sounds are positive for diffuse wheezes, scattered rhonchi and bibasilar rales. The findings and the impression was discussed with the patient. I attest to the documentation by the nurse practitioner. Time with Patient: Less than 30
[2017-06-29] MEDS: NON-FORMULARY DRUG (Morphine Pain Pump 1 DOSE) INTRATHECA SCH (17:17)
[2017-06-29 17:37] LABS: Glucose,Whole Blood 151 mg/dL (75-99)
--- NOTE | 2017-06-29 18:05 | P.PN ---
Subjective Progress Note Date: 06/22/17 Progress note being dictated for Dr. Tarango Interval history:82-year-old man with advanced the COPD came in with complaints of shadows were restarted couple days ago along with brownish sputum production patient denied any fever chills patient chest x-ray showed atelectasis without any significant pneumonic process. Patient weighs 2 L of oxygen at home. Patient had multiple hospitalization for COPD exacerbation had remote history of smoking. Review of Systems REVIEW OF SYSTEMS: CONSTITUTIONAL: No fever, no malaise, no fatigue. HEENT: No recent visual problems or hearing problems. Denied any sore throat. CARDIOVASCULAR: No chest pain, orthopnea, PND, no palpitations, no syncope. PULMONARY: no hemoptysis. GASTROINTESTINAL: No diarrhea, no nausea, no vomiting, no abdominal pain. Normoactive bowel sounds. NEUROLOGICAL: No headaches, no weakness, no numbness. HEMATOLOGICAL: Denies any bleeding or petechiae. GENITOURINARY: Denies any burning micturition, frequency, or urgency. MUSCULOSKELETAL/RHEUMATOLOGICAL: Denies any joint pain, swelling, or any muscle pain. ENDOCRINE: Denies any polyuria or polydipsia. The rest of the 14-point review of systems is negative. 06/28/2017 maintained on nebulized bronchodilators, steroids, antibiotics with breathing slowly improving. Complains of exertional shortness of breath. Reports mostly nonproductive cough with occasional minimal by mouth yellow sputum production. Good diet intake with no nausea vomiting or diarrhea. Denies chest pain, palpitations or increasing shortness of breath. Afebrile. Maintaining O2 sats in the mid 90s on 2 L nasal cannula. 06/29/17 Slow to improve. Maintained on nebulized bronchodilators, steroids, antibiotics, wheeziness, persists, dyspneic at rest. Tachycardic, heart rate in the 110s. Reports occasional productive cough, brown sputum. Objective - Vital Signs Vital signs: Vital Signs Temp 98.3 F 06/29/17 15:00 Pulse 110 H 06/29/17 17:10 Resp 24 06/29/17 15:00 BP 127/74 06/29/17 15:00 Pulse Ox 95 06/29/17 15:00 Intake & Output 06/28/17 06/29/17 06/29/17 18:59 06:59 18:59 Intake Total 180 Balance 180 Intake: Oral 180 Other: Voiding Method Toilet Urinal # Voids 2 1 2 - Exam GENERAL: The patient is sitting up in bed, alert and oriented x3, dyspneic with conversing HEENT: Pupils are round and equally reacting to light. EOMI. No scleral icterus. Oral mucosa moist CARDIOVASCULAR: S1 and S2 present. No murmurs, rubs, or gallops. PULMONARY: Rhonchus breath sounds bilaterally, scattered rhonchi with crackles throughout, unchanged diffuse expiratory wheezing, ABDOMEN: Soft, nontender, nondistended, normoactive bowel sounds. No palpable organomegaly. MUSCULOSKELETAL: No joint swelling or deformity. EXTREMITIES: No cyanosis, clubbing, or pedal edema. NEUROLOGICAL: Gross neurological examination did not reveal any focal deficits. SKIN: No rashes. - Labs CBC & Chem 7: 06/29/17 07:38 06/29/17 07:38 Labs: Abnormal Lab Results - Last 24 Hours (Table) 06/28/17 06/29/17 06/29/17 Range/Units 20:31 07:12 07:38 RBC 3.67 L (4.30-5.90) m/uL Hgb 11.6 L (13.0-17.5) gm/dL Hct 35.3 L (39.0-53.0) % Plt Count 113 L (150-450) k/uL Neutrophils # 8.6 H (1.3-7.7) k/uL Lymphocytes # 0.5 L (1.0-4.8) k/uL BUN (9-20) mg/dL Glucose (74-99) mg/dL POC Glucose (mg/dL) 240 H 185 H (75-99) mg/dL 06/29/17 06/29/17 06/29/17 Range/Units 07:38 11:22 17:16 RBC (4.30-5.90) m/uL Hgb (13.0-17.5) gm/dL Hct (39.0-53.0) % Plt Count (150-450) k/uL Neutrophils # (1.3-7.7) k/uL Lymphocytes # (1.0-4.8) k/uL BUN 27 H (9-20) mg/dL Glucose 156 H (74-99) mg/dL POC Glucose (mg/dL) 209 H 151 H (75-99) mg/dL Assessment and Plan Assessment: -acute on chronic hypercapnic respiratory failure: Secondary to COPD exacerbation, tracheo bronchitis -Hypertension -hyperlipidemia -Rheumatoid arthritis -Hypothyroidism -Chronic low back pain with a pain pump in place. Plan: Continue on current medication regime ,monitoring and symptomatic treatment. Sputum culture being collected.Maintain nebulized bronchodilators, steroids and antibiotics. Aggressive pulmonary toileting. Bronchoscopy tentatively scheduled for Tuesday with pulmonary. The impression and plan of care has been dictated as directed. : I performed a history and examination of this patient, discussed the same with the dictator. I agree with the dictator's note ,documented as a scribe. Any additional findings or plans will be noted.
[2017-06-29 20:04] LABS: Glucose,Whole Blood 186 mg/dL (75-99)
[2017-06-29] MEDS: ATORVASTATIN 20 MG TAB PO SCH (20:31)
[2017-06-29] MEDS: DONEPEZIL 10 MG TAB PO SCH (20:31)
[2017-06-29] MEDS: ISOSORBIDE MONONITRATE ER 60 MG TAB.ER.24H PO SCH (20:32)
[2017-06-29] MEDS: LEVOTHYROXINE 100 MCG TAB PO SCH (20:33)
[2017-06-29] MEDS: LEVOTHYROXINE 75 MCG TAB PO SCH (20:33)
[2017-06-29] MEDS: TAMSULOSIN 0.4 MG CAP.ER.24H PO SCH (20:34)
[2017-06-29] MEDS: PANTOPRAZOLE 40 MG TABLET PO SCH (20:34)
[2017-06-30] MEDS: IPRATROPIUM-ALBUTEROL 3 ML NEB INHALATION PRN (02:02)
[2017-06-30] MEDS: methylPREDNISolone SOD SUCCI 125 MG/2 ML VIAL IV SCH ×3 (06:10→12:37)
[2017-06-30 07:08] LABS: Basophils % (A) 0 %; Eosinophils % (A) 0 %; HCT 35.1 % (39.0-53.0); Lymphocytes # (A) 0.5 k/uL (1.0-4.8); Lymphocytes % (A) 6 %; MCH 32.5 pg (25.0-35.0); MCHC 34.1 g/dL (31.0-37.0); MCV 95.1 fL (80.0-100.0); Mean Platelet Volume 7.2; Monocytes # (A) 0.3 k/uL (0-1.0); Monocytes % (A) 3 %; Neutrophils # (A) 8.3 k/uL (1.3-7.7); Neutrophils % (A) 90 %; Platelet Count 119 k/uL (150-450); RBC 3.69 m/uL (4.30-5.90); RDW 13.8 % (11.5-15.5); WBC 9.3 k/uL (3.8-10.6)
[2017-06-30 07:11] LABS: Glucose,Whole Blood 176 mg/dL (75-99)
[2017-06-30 07:17] LABS: Calcium 8.7 mg/dL (8.4-10.2); Potassium 4.2 mmol/L (3.5-5.1)
[2017-06-30] MEDS: INSULIN ASPART 100 UNIT/ML 1 ML 10 ML VIAL SQ SCH ×4 (07:42→21:11)
[2017-06-30] MEDS: IPRATROPIUM-ALBUTEROL 3 ML NEB INHALATION SCH ×4 (08:11→19:14)
[2017-06-30] MEDS: SYMBICORT 160-4.5 MCG INHALER INHALATION SCH ×2 (08:12→19:15)
[2017-06-30] MEDS: SENNOSIDES 8.6 MG TAB PO SCH ×2 (08:34→21:10)
[2017-06-30] MEDS: DOXYCYCLINE 50 MG CAP PO SCH ×2 (08:34→21:10)
[2017-06-30] MEDS: GABAPENTIN 400 MG CAP PO SCH ×3 (08:34→23:08)
[2017-06-30 11:07] LABS: Glucose,Whole Blood 161 mg/dL (75-99)
--- NOTE | 2017-06-30 11:35 | P.PN ---
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 Elkins, who presented to the emergency department on 06/27/2017 at 1223 with complaints of increasing shortness of breath, chest congestion, productive cough, wheezing. He did have a fever in the emergency room with a temp of 101F, patient has a congested cough with occasional expectoration of dark brown sputum. Patient's chest x- ray showed atelectasis without any significant pneumonic process. Patient has an underlying chronic hypoxic respiratory failure secondary to COPD, he wears home O2 at 2 L/m. In the past few months patient has had multiple recurrent hospitalizations for COPD exacerbation. His maintenance inhalers include Breo- Ellipta, Duoneb. Patient's baseline FEV1 is 73% of predicted. Other medical history includes hypertension, hypothyroidism, GERD, BPH, rheumatoid arthritis, hyperlipidemia, dementia, diverticulitis, previous CVA. Patient follows with Dr. Diaz for his history of COPD. Patient has been afebrile while inpatient, hemodynamically stable. Lung sounds reveal significant wheezing and congestion. Patient was started on IV Solu-Medrol, Symbicort, and DuoNeb, doxycycline and was admitted for further management. On 06/29/2017 patient remains significantly wheezy, congested, dyspneic at rest. He states there is no improvement in his pulmonary condition. Currently on 3 L per nasal cannula with a pulse ox of 96%. He is afebrile, slightly tachycardic with a heart rate up to 118 BPM. Lung sounds positive for diffuse wheezes and rhonchi. At times she is able to bring up brown color sputum. He continues on combination of doxycycline, Symbicort, DuoNeb, IV steroids. In view of lack of improvement in patient's condition and his ongoing congestion, patient will be scheduled for bronchoscopy with BAL by Dr. Jones on Tuesday at 11 AM On 06/30/2017 patient seen in follow-up. He remains bronchospastic and congested. He remains dyspneic at rest. He states today he is not bringing any sputum up. Denies any fever or chills, remains afebrile, tachycardic with a heart rate up to 120 BPM. On 2 L per nasal cannula his O2 sat at 96%. Remains limited in terms of activity tolerance. Currently on doxycycline, IV steroids, DuoNeb, and Symbicort. The plan is to proceed with bronchoscopy with BAL by Dr. Jones on Tuesday at 11 AM. His was discussed with the patient, who was in agreement. Objective - Vital Signs Vital signs: Vital Signs Temp 98.6 F 06/30/17 07:00 Pulse 114 H 06/30/17 08:30 Resp 22 06/30/17 08:00 BP 100/60 06/30/17 07:00 Pulse Ox 96 06/30/17 08:14 Intake & Output 06/29/17 06/30/17 06/30/17 18:59 06:59 18:59 Intake Total 400 Balance 400 Intake: Oral 400 Other: Voiding Method Toilet Toilet Urinal Urinal # Voids 2 1 - Exam GENERAL EXAM: Alert, 82-year-old white male comfortable in no apparent distress. HEAD: Normocephalic/atraumatic. EYES: Normal reaction of pupils, equal size. Conjunctiva pink, sclera white. NOSE: Clear with pink turbinates. THROAT: No erythema or exudates. NECK: No masses, no JVD, no thyroid enlargement, no adenopathy. CHEST: No chest wall deformity. Symmetrical expansion. LUNGS: Equal air entry with diffuse wheezes, rhonchi and bibasilar crackles CVS: Regular rate and rhythm, normal S1 and S2, no gallops, no murmurs, no rubs ABDOMEN: Soft, nontender. No hepatosplenomegaly, normal bowel sounds, no guarding or rigidity. EXTREMITIES: No clubbing, no edema, no cyanosis, 2+ pulses and upper and lower extremities. MUSCULOSKELETAL: Muscle strength and tone normal. SPINE: No scoliosis or deformity SKIN: No rashes CENTRAL NERVOUS SYSTEM: Alert and oriented -3. No focal deficits, tone is normal in all 4 extremities. PSYCHIATRIC: Alert and oriented -3. Appropriate affect. Intact judgment and insight. - Labs CBC & Chem 7: 06/30/17 06:42 06/30/17 06:42 Labs: Abnormal Lab Results - Last 24 Hours (Table) 06/29/17 06/29/17 06/29/17 Range/Units 11:22 17:16 20:01 RBC (4.30-5.90) m/uL Hgb (13.0-17.5) gm/dL Hct (39.0-53.0) % Plt Count (150-450) k/uL Neutrophils # (1.3-7.7) k/uL Lymphocytes # (1.0-4.8) k/uL BUN (9-20) mg/dL Glucose (74-99) mg/dL POC Glucose (mg/dL) 209 H 151 H 186 H (75-99) mg/dL 06/30/17 06/30/17 06/30/17 Range/Units 06:42 06:42 07:06 RBC 3.69 L (4.30-5.90) m/uL Hgb 12.0 L (13.0-17.5) gm/dL Hct 35.1 L (39.0-53.0) % Plt Count 119 L (150-450) k/uL Neutrophils # 8.3 H (1.3-7.7) k/uL Lymphocytes # 0.5 L (1.0-4.8) k/uL BUN 29 H (9-20) mg/dL Glucose 182 H (74-99) mg/dL POC Glucose (mg/dL) 176 H (75-99) mg/dL 06/30/17 Range/Units 11:05 RBC (4.30-5.90) m/uL Hgb (13.0-17.5) gm/dL Hct (39.0-53.0) % Plt Count (150-450) k/uL Neutrophils # (1.3-7.7) k/uL Lymphocytes # (1.0-4.8) k/uL BUN (9-20) mg/dL Glucose (74-99) mg/dL POC Glucose (mg/dL) 161 H (75-99) mg/dL Microbiology - Last 24 Hours (Table) 06/29/17 16:30 Gram Stain - Preliminary Sputum Sputum Culture - Preliminary Assessment and Plan Plan: Assessment: #1. 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 Chest x-ray did not show any evidence of pneumonia #2. Recurrent hospitalizations for COPD exacerbation, most recently hospitalized 2 weeks ago, discharged home on 06/18/2017 #3. Moderately severe COPD, with a baseline FEV1 of 73% of predicted, oxygen dependent, GOLD stage II #3. Gastroesophageal reflux disease #4. Hypertension, hyperlipidemia #5. History of BPH #6. Chronic rheumatoid arthritis #7. Hypothyroidism #8. Dementia #9. Chronic gait dysfunction #10. History of pseudomonal pneumonia #11. Restless leg syndrome #12. Chronic back pain Plan: We'll proceed with bronchoscopy with BAL on 07/01/2017 at [address] Jones. This was discussed with the patient, who is in agreement. Continue with current medical treatments, continue IV steroids, oral doxycycline, Symbicort, DuoNeb. I performed a history & physical examination of the patient and discussed their management with my nurse practitioner, Marta Herrera. I reviewed the nurse practitioner's note and agree with the documented findings and plan of care. Lung sounds are positive for diffuse wheezes, scattered rhonchi and bibasilar rales. The findings and the impression was discussed with the patient. I attest to the documentation by the nurse practitioner. Time with Patient: Less than 30
[2017-06-30] MEDS: MULTIVITAMINS, THERA 1 EACH TAB PO SCH (12:37)
[2017-06-30] MEDS: DILTIAZEM CD 120 MG CAP.ER.24H PO SCH (13:19)
[2017-06-30] MEDS: NON-FORMULARY DRUG (Morphine Pain Pump 1 DOSE) INTRATHECA SCH (16:43)
[2017-06-30 17:37] LABS: Glucose,Whole Blood 157 mg/dL (75-99)
[2017-06-30 20:00] LABS: Glucose,Whole Blood 145 mg/dL (75-99)
--- NOTE | 2017-06-30 20:58 | PN ---
PROGRESS NOTE DATE OF SERVICE: 06/30/2017 PRESENTING COMPLAINT: Short of breath. INTERVAL HISTORY: This patient was admitted with severe COPD exacerbation, congested rattling in the chest, a little bit short of breath. Tolerating his diet. Decision has been made by Pulmonary to proceed with a bronchoscopy. REVIEW OF SYSTEMS: Done for constitutional, cardiovascular, GI, pulmonary; relevant findings as above. CURRENT MEDICATIONS: Current medications are reviewed that include: 1. DuoNeb. 2. Symbicort. 3. Oral doxycycline. 4. Synthroid. 5. IV Solu-Medrol. 6. Patient has a morphine pain pump. PHYSICAL EXAMINATION: Afebrile. Pulse 110, respiration 22, blood pressure 143/73, pulse ox 96% on 2 L. GENERAL APPEARANCE: Sitting up, short of breath. EYES: Pupils equal. Conjunctivae normal. HEENT: External appearance of nose and ears normal. Oral cavity normal. NECK: JVD not raised. Mass not palpable. RESPIRATORY: Effort increased. LUNGS: Diminished breath sounds with prolonged expiration and wheezing, some scattered expiratory audible crackles. CARDIOVASCULAR: First and second sounds normal. Minimal edema. ABDOMEN: Soft, nontender. Liver and spleen not palpable. PSYCHIATRY: Alert and oriented x3. Mood and affect anxious-appearing. INVESTIGATIONS: White count 9.3, potassium 4.2, BUN 29, creatinine 1.10. ASSESSMENT: 1. Acute severe chronic obstructive pulmonary disease exacerbation with acute tracheobronchitis, slow to respond. Patient has significant in the chest. May need a bronchoscopy with lavage. 2. Gastroesophageal reflux disease. 3. Essential hypertension. 4. Hyperlipidemia. 5. Benign prostatic hypertrophy. 6. Chronic rheumatoid arthritis. 7. Hypothyroid. 8. Chronic hypoxic respiratory failure from underlying chronic obstructive pulmonary disease. 9. Colonic diverticulosis. 10.Alzheimer's dementia, late-onset type. 11.Restless legs syndrome. 12.Gait dysfunction; at baseline uses a walker. 13.Chronic pain syndrome, for which patient has an intrathecal pain pump. Continue with p.o. doxycycline, bronchodilators, steroids. Care was discussed with the patient. Questions were answered. Await bronchoscopy with lavage. MMODL / IJN: [id number] /
[2017-06-30] MEDS: PANTOPRAZOLE 40 MG TABLET PO SCH (21:10)
[2017-06-30] MEDS: ISOSORBIDE MONONITRATE ER 60 MG TAB.ER.24H PO SCH (21:10)
[2017-06-30] MEDS: traZODone HCL 50 MG TAB PO PRN ×2 (21:10→21:11)
[2017-06-30] MEDS: DONEPEZIL 10 MG TAB PO SCH (21:10)
[2017-06-30] MEDS: ATORVASTATIN 20 MG TAB PO SCH (21:10)
[2017-06-30] MEDS: TAMSULOSIN 0.4 MG CAP.ER.24H PO SCH (21:11)
[2017-06-30] MEDS: ENOXAPARIN 40 MG/0.4 ML SYRINGE SQ SCH (22:16)
[2017-06-30] MEDS: methylPREDNISolone SOD SUCCI 40 MG/ML 1 ML VIAL IV SCH (23:09)
[2017-06-30] MEDS: LORazepam 0.5 MG TAB PO PRN (23:55)
[2017-07-01 07:16] LABS: Glucose,Whole Blood 177 mg/dL (75-99)
[2017-07-01 07:46] LABS: Basophils % (A) 0 %; Eosinophils % (A) 0 %; HCT 33.8 % (39.0-53.0); HGB 10.7 gm/dL (13.0-17.5); Lymphocytes # (A) 0.6 k/uL (1.0-4.8); Lymphocytes % (A) 9 %; MCH 30.3 pg (25.0-35.0); MCHC 31.6 g/dL (31.0-37.0); Mean Platelet Volume 7.6; Monocytes # (A) 0.2 k/uL (0-1.0); Monocytes % (A) 4 %; Neutrophils # (A) 5.2 k/uL (1.3-7.7); Neutrophils % (A) 86 %; Platelet Count 108 k/uL (150-450); RBC 3.52 m/uL (4.30-5.90); RDW 13.7 % (11.5-15.5)
[2017-07-01] MEDS: INSULIN ASPART 100 UNIT/ML 1 ML 10 ML VIAL SQ SCH ×4 (07:46→22:01)
[2017-07-01] MEDS: ENOXAPARIN 40 MG/0.4 ML SYRINGE SQ SCH (07:46)
[2017-07-01] MEDS: methylPREDNISolone SOD SUCCI 40 MG/ML 1 ML VIAL IV SCH ×2 (07:50→16:59)
[2017-07-01] MEDS: DILTIAZEM CD 120 MG CAP.ER.24H PO SCH (07:50)
[2017-07-01] MEDS: DOXYCYCLINE 50 MG CAP PO SCH (07:50)
[2017-07-01] MEDS: SENNOSIDES 8.6 MG TAB PO SCH ×2 (07:52→20:14)
[2017-07-01] MEDS: GABAPENTIN 400 MG CAP PO SCH ×3 (07:53→22:00)
[2017-07-01 08:09] LABS: Calcium 8.9 mg/dL (8.4-10.2)
[2017-07-01] MEDS: SYMBICORT 160-4.5 MCG INHALER INHALATION SCH ×2 (08:44→21:03)
[2017-07-01] MEDS: IPRATROPIUM-ALBUTEROL 3 ML NEB INHALATION SCH ×4 (08:44→21:03)
[2017-07-01 11:12] LABS: Glucose,Whole Blood 135 mg/dL (75-99)
[2017-07-01] MEDS ORDERED: LIDOCAINE 1% INJ 10MG/ML (20 ML MDV) ONE (11:28)
[2017-07-01] MEDS ORDERED: PROPOFOL 10 MG/ML 20 ML VIAL IV ONE (11:28)
[2017-07-01] MEDS ORDERED: LACTATED RINGERS 1,000 ML IV ONE (11:35)
--- NOTE | 2017-07-01 12:54 | P.PN ---
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 Elkins, who presented to the emergency department on 06/27/2017 at 1223 with complaints of increasing shortness of breath, chest congestion, productive cough, wheezing. He did have a fever in the emergency room with a temp of 101F, patient has a congested cough with occasional expectoration of dark brown sputum. Patient's chest x- ray showed atelectasis without any significant pneumonic process. Patient has an underlying chronic hypoxic respiratory failure secondary to COPD, he wears home O2 at 2 L/m. In the past few months patient has had multiple recurrent hospitalizations for COPD exacerbation. His maintenance inhalers include Breo- Ellipta, Duoneb. Patient's baseline FEV1 is 73% of predicted. Other medical history includes hypertension, hypothyroidism, GERD, BPH, rheumatoid arthritis, hyperlipidemia, dementia, diverticulitis, previous CVA. Patient follows with Dr. Diaz for his history of COPD. Patient has been afebrile while inpatient, hemodynamically stable. Lung sounds reveal significant wheezing and congestion. Patient was started on IV Solu-Medrol, Symbicort, and DuoNeb, doxycycline and was admitted for further management. On 06/29/2017 patient remains significantly wheezy, congested, dyspneic at rest. He states there is no improvement in his pulmonary condition. Currently on 3 L per nasal cannula with a pulse ox of 96%. He is afebrile, slightly tachycardic with a heart rate up to 118 BPM. Lung sounds positive for diffuse wheezes and rhonchi. At times she is able to bring up brown color sputum. He continues on combination of doxycycline, Symbicort, DuoNeb, IV steroids. In view of lack of improvement in patient's condition and his ongoing congestion, patient will be scheduled for bronchoscopy with BAL by Dr. Jones on Tuesday at 11 AM On 06/30/2017 patient seen in follow-up. He remains bronchospastic and congested. He remains dyspneic at rest. He states today he is not bringing any sputum up. Denies any fever or chills, remains afebrile, tachycardic with a heart rate up to 120 BPM. On 2 L per nasal cannula his O2 sat at 96%. Remains limited in terms of activity tolerance. Currently on doxycycline, IV steroids, DuoNeb, and Symbicort. The plan is to proceed with bronchoscopy with BAL by Dr. Jones on Tuesday at 11 AM. His was discussed with the patient, who was in agreement. On 07/01/2017 patient seen in follow-up. Remains wheezy and congested, not able to expectorate any sputum today. He states his chest feels tight, has been on bedrest for the most part. Remains on 2 L per nasal cannula with O2 sat 95%. Afebrile, hemodynamically stable. Lung sounds are positive for diffuse wheezes and scattered rhonchi. The plan is to proceed with bronchoscopy with BAL by Dr. Jones today. Objective - Vital Signs Vital signs: Vital Signs Temp 97.8 F 07/01/17 07:00 Pulse 102 H 07/01/17 08:54 Resp 16 07/01/17 08:44 BP 126/70 07/01/17 07:00 Pulse Ox 95 07/01/17 07:00 Intake & Output 06/30/17 07/01/17 07/01/17 18:59 06:59 18:59 Intake Total 1500 270 110 Balance 1500 270 110 Weight 96.615 kg Intake: IV 30 110 Invasive Line 3 30 10 Oral 1500 240 Other: Voiding Method Toilet Toilet Toilet Urinal Urinal Urinal # Voids 1 - Exam GENERAL EXAM: Alert, 82-year-old white male comfortable in no apparent distress. HEAD: Normocephalic/atraumatic. EYES: Normal reaction of pupils, equal size. Conjunctiva pink, sclera white. NOSE: Clear with pink turbinates. THROAT: No erythema or exudates. NECK: No masses, no JVD, no thyroid enlargement, no adenopathy. CHEST: No chest wall deformity. Symmetrical expansion. LUNGS: Equal air entry with diffuse wheezes, rhonchi and bibasilar crackles CVS: Regular rate and rhythm, normal S1 and S2, no gallops, no murmurs, no rubs ABDOMEN: Soft, nontender. No hepatosplenomegaly, normal bowel sounds, no guarding or rigidity. EXTREMITIES: No clubbing, no edema, no cyanosis, 2+ pulses and upper and lower extremities. MUSCULOSKELETAL: Muscle strength and tone normal. SPINE: No scoliosis or deformity SKIN: No rashes CENTRAL NERVOUS SYSTEM: Alert and oriented -3. No focal deficits, tone is normal in all 4 extremities. PSYCHIATRIC: Alert and oriented -3. Appropriate affect. Intact judgment and insight. - Labs CBC & Chem 7: 07/01/17 07:03 07/01/17 07:03 Labs: Abnormal Lab Results - Last 24 Hours (Table) 06/30/17 06/30/17 07/01/17 Range/Units 17:14 19:59 07:03 RBC 3.52 L (4.30-5.90) m/uL Hgb 10.7 L (13.0-17.5) gm/dL Hct 33.8 L (39.0-53.0) % Plt Count 108 L (150-450) k/uL Lymphocytes # 0.6 L (1.0-4.8) k/uL BUN (9-20) mg/dL Glucose (74-99) mg/dL POC Glucose (mg/dL) 157 H 145 H (75-99) mg/dL 07/01/17 07/01/17 07/01/17 Range/Units 07:03 07:12 11:08 RBC (4.30-5.90) m/uL Hgb (13.0-17.5) gm/dL Hct (39.0-53.0) % Plt Count (150-450) k/uL Lymphocytes # (1.0-4.8) k/uL BUN 32 H (9-20) mg/dL Glucose 179 H (74-99) mg/dL POC Glucose (mg/dL) 177 H 135 H (75-99) mg/dL Microbiology - Last 24 Hours (Table) 06/29/17 16:30 Gram Stain - Preliminary Sputum Sputum Culture - Preliminary Klebsiella pneumoniae Assessment and Plan Plan: Assessment: #1. 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 Chest x-ray did not show any evidence of pneumonia #2. Recurrent hospitalizations for COPD exacerbation, most recently hospitalized 2 weeks ago, discharged home on 06/18/2017 #3. Moderately severe COPD, with a baseline FEV1 of 73% of predicted, oxygen dependent, GOLD stage II #3. Gastroesophageal reflux disease #4. Hypertension, hyperlipidemia #5. History of BPH #6. Chronic rheumatoid arthritis #7. Hypothyroidism #8. Dementia #9. Chronic gait dysfunction #10. History of pseudomonal pneumonia #11. Restless leg syndrome #12. Chronic back pain Plan: Continue with current plan of care, continue Symbicort, doxycycline, DuoNeb, IV steroids. We'll proceed with bronchoscopy with BAL Dr. Jones today. I performed a history & physical examination of the patient and discussed their management with my nurse practitioner, Marta Herrera. I reviewed the nurse practitioner's note and agree with the documented findings and plan of care. Lung sounds are positive for diffuse wheezes, scattered rhonchi and bibasilar rales. The findings and the impression was discussed with the patient. I attest to the documentation by the nurse practitioner. Time with Patient: Less than 30
[2017-07-01] MEDS: MULTIVITAMINS, THERA 1 EACH TAB PO SCH (13:47)
--- NOTE | 2017-07-01 16:02 | PCN ---
PROCEDURE NOTE PROCEDURE: Bronchoscopy, airway examination, therapeutic lavage, BAL right middle lobe. PREOPERATIVE DIAGNOSIS: Severe chronic obstructive pulmonary disease, retained secretions. Rule out infection. POSTOPERATIVE DIAGNOSIS: Severe chronic obstructive pulmonary disease, retained secretions. Rule out infection. OPERATORS: 1. Dr. Jones. 2. Dr. Oh. The patient's procedure took place in room #2. ADMINISTRATIVE DIETITIAN provided general anesthesia and unconscious sedation. There was informed consent. There was universal timeout. DESCRIPTION OF PROCEDURE: After the patient was adequately sedated and being fully monitored, the bronchoscope was inserted through the right nostril. It passed through the right nasopharynx into the oropharynx. The hypopharynx was identified and topicalized. There was yeast noted to be on the vocal cords, both true and false. The structures, including anterior commissure, true cords, false cords, arytenoids, piriform sinuses, right and left valleculae and epiglottis, otherwise appeared normal. After topicalization, the bronchoscope was pushed through the glottic opening into the trachea. Trachea appeared relatively normal. There were some secretions noted in the distal trachea. They had a yellow color to them. Tracheal laine was sharp. Right and left mainstem were topicalized. Similar findings were found bilaterally. The right upper lobe and its 3 segments, the right middle lobe and its 2 segments, the right lower lobe and its 5 segments, left upper lobe proper and its 2 segments, lingula and its 2 segments and left lower lobe and its 4 segments all had similar findings of diffuse moderate bronchitis. There was hyperemia and erythema of the airways. The airways were friable. They bled when suctioned. There were thick yellow-green secretions noted throughout. They were noted both in the left lower lobe and the right lower lobe. There were suctioned with some difficulty with saline lavage. Afterwards, the bronchoscope was wedged into the right middle lobe. BAL took place. Thirty milliliters was retrieved. That will be sent to the laboratory for analysis. The rest of the airways was cleansed with saline. There was no immediate complication. The patient tolerated the procedure well. The bronchoscope was withdrawn. The patient will be recovered. MMODL / IJN: [id number] /
--- NOTE | 2017-07-01 16:23 | PN ---
PROGRESS NOTE DATE OF SERVICE: 07/01/17. PRESENTING COMPLAINT: Short of breath. INTERVAL HISTORY: Patient admitted with severe COPD exacerbation. Did undergo a bronchoscopy with lavage today. Feeling much better, tolerating a diet. Breathing is much improved. Did sleep well last night. The procedure was done yesterday. REVIEW OF SYSTEMS: Done for constitutional, cardiovascular, GI, pulmonary; relevant findings as above. CURRENT MEDICATIONS: Reviewed that include DuoNeb, IV Zosyn, IV Solu-Medrol. PHYSICAL EXAMINATION: Temperature 97.8, pulse 79, respirations 20, blood pressure 120/70, pulse ox 95% 2 L. GENERAL APPEARANCE: Sitting up, much more comfortable today. EYES: Pupils equal. Conjunctivae normal. HEENT: External appearance of nose and ears normal. Oral cavity normal. NECK: JVD not raised. Mass not palpable. RESPIRATORY: Effort increased. Lungs improved air entry, decreased wheezing, decreased crackles from yesterday. CARDIOVASCULAR: First and second sounds normal. Minimal edema. ABDOMEN: Soft, nontender. Liver and spleen not palpable. PSYCHIATRY: Alert and oriented x3. Mood and affect anxious-appearing. INVESTIGATIONS: White count 6, hemoglobin 10.7 potassium 5, BUN 32, creatinine 1.14. Sputum culture did grow Klebsiella pneumoniae. ASSESSMENT: 1. Acute severe chronic obstructive pulmonary disease exacerbation, status post bronchoscopy and lavage, feeling better. 2. Gastroesophageal reflux disease. 3. Essential hypertension. 4. Hyperlipidemia. 5. Benign prostatic hypertrophy. 6. Chronic rheumatoid arthritis. 7. Hypothyroid. 8. Chronic hypoxic respiratory failure from underlying chronic obstructive pulmonary disease. 9. Colonic diverticulosis. 10.Alzheimer's dementia late onset type. 11.Restless legs syndrome. 12.Gait dysfunction at baseline using a walker. 13.Chronic pain syndrome for which patient has intrathecal pump. PLAN: Continue current medication and treatment plan. Follow with Pulmonary. Care was discussed with the patient. The patient has done significantly better after getting a bronchoscopy with lavage. MMODL / IJN: [id number] /
[2017-07-01 16:35] LABS: Appearance,BF Hazy; Color,BF Red; Nucleated Cells, Body Fluid 120 /uL; RBC, Body Fluid 5000 /uL
[2017-07-01 16:45] LABS: Mononuclear WBC,Body Fluid 25 %; Polynuclear WBC,Body Fluid 71 %; Total Cells Counted,Body Fluid 100
[2017-07-01] MEDS: PIPERACILLIN-TAZOBACTAM 3.375 GM in DEXTROSE/WATER 1 50ML.BAG IVPB SCH (17:14)
[2017-07-01 17:39] LABS: Glucose,Whole Blood 145 mg/dL (75-99)
[2017-07-01] MEDS: NON-FORMULARY DRUG (Morphine Pain Pump 1 DOSE) INTRATHECA SCH (17:54)
[2017-07-01] MEDS: ATORVASTATIN 20 MG TAB PO SCH (20:13)
[2017-07-01] MEDS: TAMSULOSIN 0.4 MG CAP.ER.24H PO SCH (20:13)
[2017-07-01] MEDS: PANTOPRAZOLE 40 MG TABLET PO SCH (20:14)
[2017-07-01] MEDS: traZODone HCL 50 MG TAB PO PRN ×2 (20:14→20:15)
[2017-07-01] MEDS: LEVOTHYROXINE 75 MCG TAB PO SCH (20:14)
[2017-07-01] MEDS: LEVOTHYROXINE 100 MCG TAB PO SCH (20:14)
[2017-07-01] MEDS: DONEPEZIL 10 MG TAB PO SCH (20:14)
[2017-07-01] MEDS: FLUCONAZOLE 100 MG TAB PO SCH (20:15)
[2017-07-01] MEDS: ISOSORBIDE MONONITRATE ER 60 MG TAB.ER.24H PO SCH (20:15)
[2017-07-01 20:41] LABS: Glucose,Whole Blood 187 mg/dL (75-99)
[2017-07-02] MEDS: PIPERACILLIN-TAZOBACTAM 3.375 GM in DEXTROSE/WATER 1 50ML.BAG IVPB SCH ×4 (00:01→23:58)
[2017-07-02] MEDS: methylPREDNISolone SOD SUCCI 40 MG/ML 1 ML VIAL IV SCH ×4 (00:01→20:08)
[2017-07-02] MEDS: LORazepam 0.5 MG TAB PO PRN ×2 (00:04→22:06)
[2017-07-02 07:30] LABS: Glucose,Whole Blood 196 mg/dL (75-99)
[2017-07-02] MEDS: ENOXAPARIN 40 MG/0.4 ML SYRINGE SQ SCH ×2 (07:54→08:08)
[2017-07-02] MEDS: DILTIAZEM CD 120 MG CAP.ER.24H PO SCH (07:55)
[2017-07-02] MEDS: SENNOSIDES 8.6 MG TAB PO SCH ×2 (07:55→20:07)
[2017-07-02] MEDS: FLUCONAZOLE 100 MG TAB PO SCH ×2 (07:55→22:06)
[2017-07-02] MEDS: GABAPENTIN 400 MG CAP PO SCH ×3 (07:55→22:06)
[2017-07-02] MEDS: INSULIN ASPART 100 UNIT/ML 1 ML 10 ML VIAL SQ SCH ×4 (07:56→22:06)
[2017-07-02] MEDS: SYMBICORT 160-4.5 MCG INHALER INHALATION SCH ×2 (08:25→20:48)
[2017-07-02] MEDS: IPRATROPIUM-ALBUTEROL 3 ML NEB INHALATION SCH ×4 (08:25→20:50)
[2017-07-02 11:34] LABS: Glucose,Whole Blood 369 mg/dL (75-99)
--- NOTE | 2017-07-02 12:30 | P.PN ---
Subjective Progress Note Date: 07/02/17 Principal diagnosis: COPD exacerbation Progress note dated 07/02/2017 This is a 83-year-old male who underwent bronchoscopy and BAL airway examination and therapeutic lavage yesterday. The patient was admitted with a diagnosis of COPD exacerbation, complicated by purulent tracheobronchitis moderately severe COPD with an FEV1 that was 73% of predicted gastroesophageal reflux disease hypertension hyperlipidemia BPH and rheumatoid arthritis hypothyroidism dementia chronic gait dysfunction history of Pseudomonas pneumonia restless leg syndrome and chronic back pain among other diagnoses. He is feeling a bit better today. Probably not yet ready for discharge. He had thick secretions noted throughout his lungs. They were suctioned. BAL samples were sent from the right middle lobe. He probably will need another day or 2 in the hospital with breathing treatments and antibiotics and steroids. The patient is feeling better today. Certainly not back to baseline. Objective - Vital Signs Vital signs: Vital Signs Temp 98.1 F 07/02/17 07:00 Pulse 88 07/02/17 11:38 Resp 16 07/02/17 08:00 BP 101/61 07/02/17 07:00 Pulse Ox 95 07/01/17 23:00 Intake & Output 07/01/17 07/02/17 07/02/17 18:59 06:59 18:59 Intake Total 560 1200 Output Total 300 Balance 260 1200 Intake: IV 110 Invasive Line 3 10 Intake, IV Titration 50 100 Amount Piperacillin-Tazobactam 3 50 100 .375 gm In Dextrose/Water 1 50ml.bag @ 12.5 mls/hr IVPB Q8HR [facility] Rx#: [id number] Oral 400 1100 Output: Urine 300 Other: Voiding Method Toilet Toilet Toilet Urinal Urinal Urinal # Voids 1 1 - Exam No acute distress, oriented 3. Nasal O2 in place. Patient receiving a breathing treatment at the time of the evaluation. HEENT examination is grossly unremarkable. Mucous membranes are moist. No oral lesions. Neck supple. Full range of motion. No adenopathy thyromegaly or neck vein distention. Cardiovascular examination reveals regular rhythm rate. S1-S2 normal. No S3 or S4. No discernible murmur noted. Lungs reveal coarse inspiratory and expiratory rhonchi and wheezes. Breath sounds are diminished. There is prolongation. Her sounds are equal bilaterally. Abdomen soft bowel sounds are heard. No masses or tenderness. Extremities are intact. No cyanosis clubbing or edema. Skin is without rash or lesion. Neurologic examination is brief but nonfocal. - Labs CBC & Chem 7: 07/01/17 07:03 07/01/17 07:03 Labs: Abnormal Lab Results - Last 24 Hours (Table) 07/01/17 07/01/17 07/02/17 Range/Units 17:36 20:15 07:27 POC Glucose (mg/dL) 145 H 187 H 196 H (75-99) mg/dL 07/02/17 Range/Units 11:29 POC Glucose (mg/dL) 369 H (75-99) mg/dL Microbiology - Last 24 Hours (Table) 07/01/17 12:00 Gram Stain - Preliminary Bronchial Washings - Right Bronchial Washings Culture - Preliminary Gram Neg Bacilli Gram Neg Bacilli#2 06/29/17 16:30 Gram Stain - Final Sputum Sputum Culture - Final Klebsiella pneumoniae 07/01/17 12:00 Acid Fast Bacilli Smear - Final Bronchial Washings - Right Acid Fast Bacilli Culture - Preliminary 07/01/17 12:00 Fungal Culture - Preliminary Bronchial Washings - Right Assessment and Plan Assessment: Assessment Acute exacerbation of severe oxygen-dependent COPD complicated by tracheobronchitis, status post bronchoscopy on July 01. Multiple recent hospitalizations for COPD exacerbations Moderately severe COPD GERD Hypertension Hyperlipidemia BPH Rheumatoid arthritis Hypothyroidism History of dementia History of Pseudomonas pneumonia Restless leg syndrome Chronic back pain Plan: Plan dated 07/02/2017 Patient is doing a bit better today. The bronchoscopy yesterday did seem to help. A sputum sample from a couple days ago did show evidence of Klebsiella pneumoniae. It is sensitive to pipracillin and tazobactam which is what the patient is on, i.e. Zosyn. The patient's also on breathing treatments and steroids. The bronchoscopy wash did show evidence of 2 different gram-negative bacilli. They have not yet been identified. We'll await identification. One might be Klebsiella again. Additional recommendations and suggestions are forthcoming. The patient will not be discharged after another day or 2. No additional recommendations are made. We'll continue to follow. Labs are reviewed. Williams washes and specimens are reviewed. Time with Patient: Less than 30
[2017-07-02] MEDS: MULTIVITAMINS, THERA 1 EACH TAB PO SCH (13:18)
[2017-07-02] MEDS: NON-FORMULARY DRUG (Morphine Pain Pump 1 DOSE) INTRATHECA SCH (16:01)
[2017-07-02 17:14] LABS: Glucose,Whole Blood 136 mg/dL (75-99)
--- NOTE | 2017-07-02 17:33 | PN ---
PROGRESS NOTE DATE OF SERVICE: July 02, 2017. PRESENTING COMPLAINT: Short of breath. INTERVAL HISTORY: Patient with severe chronic obstructive pulmonary disease exacerbation pneumonia status post bronchoscopy lavage, still a bit rattling in the chest but better. Did tolerate a diet. Resting. REVIEW OF SYSTEMS: Done for constitutional, cardiovascular, GI, pulmonary and relevant findings as above. CURRENT MEDICATIONS: Reviewed that include DuoNeb, Symbicort, IV Solu-Medrol, IV Zosyn. EXAMINATION: Temp 98.9, pulse 95, respiratory 18, blood pressure 119/70, pulse ox 97% on 2 L, general appearance: Lying in bed, more comfortable. Eyes pupils are equal. Conjunctivae normal. HEENT external appearance of nose and ears normal. Oral cavity normal. Neck JVD not raised. Mass not palpable. Respiratory effort increased. Lungs decreased breath sounds. Prolonged expiration. Mild expiratory crackles. Cardiovascular 1st and 2nd sounds normal. No edema. ABDOMEN: Soft, nontender. Liver and spleen not palpable. Psychiatry: Alert and oriented x3. Mood and affect normal. INVESTIGATIONS: Accu-Cheks noted. Patient's bronchoscopy cultures showing gram-negative bacilli. ASSESSMENT: 1. Acute severe chronic obstructive pulmonary disease exacerbation, status post bronchoscopy with lavage with significant improvement. 2. Gastroesophageal reflux disease. 3. Essential hypertension. 4. Hyperlipidemia. 5. Benign prostatic hypertrophy. 6. Chronic rheumatoid arthritis. 7. Hypothyroid. 8. Chronic hypoxic respiratory failure from underlying chronic obstructive pulmonary disease. 9. Colonic diverticulosis. 10.Alzheimer's dementia late onset type. 11.Restless legs syndrome. 12.Gait dysfunction at baseline using a walker. 13.Chronic pain syndrome for which patient has an intrathecal pain pump. PLAN: Care was discussed with the patient. Per Pulmonary, patient needs to be in the hospital at least a couple of more days. Care was discussed with the patient. We will add Mucinex. MMODL / IJN: [id number] /
[2017-07-02] MEDS: guaiFENesin 600 MG TABLET.ER PO SCH (17:43)
[2017-07-02] MEDS: traZODone HCL 50 MG TAB PO PRN ×2 (20:07→20:29)
[2017-07-02] MEDS: TAMSULOSIN 0.4 MG CAP.ER.24H PO SCH (20:07)
[2017-07-02] MEDS: PANTOPRAZOLE 40 MG TABLET PO SCH (20:07)
[2017-07-02] MEDS: LEVOTHYROXINE 100 MCG TAB PO SCH (20:08)
[2017-07-02] MEDS: ATORVASTATIN 20 MG TAB PO SCH (20:08)
[2017-07-02] MEDS: LEVOTHYROXINE 75 MCG TAB PO SCH (20:08)
[2017-07-02] MEDS: DONEPEZIL 10 MG TAB PO SCH (20:08)
[2017-07-02] MEDS: ISOSORBIDE MONONITRATE ER 60 MG TAB.ER.24H PO SCH (20:08)
[2017-07-02 20:25] LABS: Glucose,Whole Blood 223 mg/dL (75-99)
[2017-07-03] MEDS: SYMBICORT 160-4.5 MCG INHALER INHALATION SCH ×2 (07:20→19:06)
[2017-07-03] MEDS: IPRATROPIUM-ALBUTEROL 3 ML NEB INHALATION SCH ×4 (07:20→19:06)
[2017-07-03 07:24] LABS: Glucose,Whole Blood 184 mg/dL (75-99)
[2017-07-03] MEDS: methylPREDNISolone SOD SUCCI 40 MG/ML 1 ML VIAL IV SCH ×2 (07:28→20:24)
[2017-07-03] MEDS: INSULIN ASPART 100 UNIT/ML 1 ML 10 ML VIAL SQ SCH ×4 (07:28→22:06)
[2017-07-03] MEDS: PIPERACILLIN-TAZOBACTAM 3.375 GM in DEXTROSE/WATER 1 50ML.BAG IVPB SCH ×2 (07:28→16:13)
[2017-07-03] MEDS: DILTIAZEM CD 120 MG CAP.ER.24H PO SCH (07:29)
[2017-07-03] MEDS: GABAPENTIN 400 MG CAP PO SCH ×3 (07:29→22:06)
[2017-07-03] MEDS: SENNOSIDES 8.6 MG TAB PO SCH ×2 (07:29→20:24)
[2017-07-03] MEDS: guaiFENesin 600 MG TABLET.ER PO SCH ×2 (07:29→17:32)
[2017-07-03] MEDS: FLUCONAZOLE 100 MG TAB PO SCH ×2 (07:29→20:24)
[2017-07-03] MEDS: ENOXAPARIN 40 MG/0.4 ML SYRINGE SQ SCH (07:30)
--- NOTE | 2017-07-03 09:25 | P.PN ---
Subjective Progress Note Date: 07/03/17 Principal diagnosis: COPD exacerbation Progress note dated 07/02/2017 This is a 83-year-old male who underwent bronchoscopy and BAL airway examination and therapeutic lavage yesterday. The patient was admitted with a diagnosis of COPD exacerbation, complicated by purulent tracheobronchitis moderately severe COPD with an FEV1 that was 73% of predicted gastroesophageal reflux disease hypertension hyperlipidemia BPH and rheumatoid arthritis hypothyroidism dementia chronic gait dysfunction history of Pseudomonas pneumonia restless leg syndrome and chronic back pain among other diagnoses. He is feeling a bit better today. Probably not yet ready for discharge. He had thick secretions noted throughout his lungs. They were suctioned. BAL samples were sent from the right middle lobe. He probably will need another day or 2 in the hospital with breathing treatments and antibiotics and steroids. The patient is feeling better today. Certainly not back to baseline. Progress note dated 07/03/2017 83-year-old male who underwent bronchoscopy and BAL late last week. I believe we did him on Tuesday. The patient states that he is feeling a bit better. Less short of breath. He was admitted with a diagnosis of COPD exacerbation complicated by purulent tracheobronchitis. He also suffers from gastroesophageal reflux disease hypertension hyperlipidemia BPH rheumatoid arthritis hypothyroidism dementia chronic gait dysfunction and previous history of Pseudomonas pneumonia. In addition, he has a history of restless leg syndrome and chronic back pain. He is feeling a bit better. When I first entered the room he is sleeping flat on his back. Without any respiratory distress. No wheezing coughing or shortness of breath to speak of. We did remove a lot of airway secretions we'll begin his bronchoscopy on Tuesday. Sampling his sent to the lab and is currently negative or pending. Objective - Vital Signs Vital signs: Vital Signs Temp 98.5 F 07/03/17 07:00 Pulse 66 07/03/17 08:00 Resp 22 07/03/17 08:00 BP 105/70 07/03/17 07:00 Pulse Ox 97 07/03/17 07:00 Intake & Output 07/02/17 07/03/17 07/03/17 18:59 06:59 18:59 Intake Total 50 1290 Balance 50 1290 Intake: Intake, IV Titration 50 50 Amount Piperacillin-Tazobactam 3 50 50 .375 gm In Dextrose/Water 1 50ml.bag @ 12.5 mls/hr IVPB Q8HR [facility] Rx#: [id number] Oral 1240 Other: Voiding Method Toilet Toilet Toilet Urinal Urinal Urinal # Voids 1 - Exam No acute distress, oriented 3. Nasal O2 in place. Patient initially sleeping flat on his back, without respiratory distress HEENT examination is grossly unremarkable. Mucous membranes are moist. No oral lesions. Neck supple. Full range of motion. No adenopathy thyromegaly or neck vein distention. Cardiovascular examination reveals regular rhythm rate. S1-S2 normal. No S3 or S4. No discernible murmur noted. Lungs reveal coarse inspiratory and expiratory rhonchi and wheezes. Breath sounds are diminished. There is prolongation. Her sounds are equal bilaterally. Abdomen soft bowel sounds are heard. No masses or tenderness. Extremities are intact. No cyanosis clubbing or edema. Skin is without rash or lesion. Neurologic examination is brief but nonfocal. - Labs CBC & Chem 7: 07/01/17 07:03 07/01/17 07:03 Labs: Abnormal Lab Results - Last 24 Hours (Table) 07/02/17 07/02/17 07/02/17 Range/Units 11:29 17:12 20:22 POC Glucose (mg/dL) 369 H 136 H 223 H (75-99) mg/dL 07/03/17 Range/Units 07:11 POC Glucose (mg/dL) 184 H (75-99) mg/dL Microbiology - Last 24 Hours (Table) 07/01/17 12:00 Gram Stain - Preliminary Bronchial Washings - Right Bronchial Washings Culture - Preliminary Gram Neg Bacilli Gram Neg Bacilli#2 06/29/17 16:30 Gram Stain - Final Sputum Sputum Culture - Final Klebsiella pneumoniae Assessment and Plan Assessment: Assessment Acute exacerbation of severe oxygen-dependent COPD complicated by tracheobronchitis, status post bronchoscopy on July 01. Multiple recent hospitalizations for COPD exacerbations Moderately severe COPD GERD Hypertension Hyperlipidemia BPH Rheumatoid arthritis Hypothyroidism History of dementia History of Pseudomonas pneumonia Restless leg syndrome Chronic back pain Plan: Plan dated 07/02/2017 Patient is doing a bit better today. The bronchoscopy yesterday did seem to help. A sputum sample from a couple days ago did show evidence of Klebsiella pneumoniae. It is sensitive to pipracillin and tazobactam which is what the patient is on, i.e. Zosyn. The patient's also on breathing treatments and steroids. The bronchoscopy wash did show evidence of 2 different gram-negative bacilli. They have not yet been identified. We'll await identification. One might be Klebsiella again. Additional recommendations and suggestions are forthcoming. The patient will not be discharged after another day or 2. No additional recommendations are made. We'll continue to follow. Labs are reviewed. [place] washes and specimens are reviewed. Plan dated 07/03/2017 The patient is doing relatively well. Feeling better. Less short of breath. Less wheezing and chest congestion. Certainly not back to baseline and not even close. A sputum sample from a couple days ago did show evidence of Klebsiella pneumoniae. It is sensitive to Zosyn. The patient continues on breathing treatments and steroids. We'll continue to follow closely. Additional recommendations and suggestions are forthcoming. We'll continue to check the BAL results for any additional pathogens or other abnormalities. Time with Patient: Less than 30
[2017-07-03 11:12] LABS: Glucose,Whole Blood 168 mg/dL (75-99)
[2017-07-03] MEDS: MULTIVITAMINS, THERA 1 EACH TAB PO SCH (12:41)
[2017-07-03] MEDS: NON-FORMULARY DRUG (Morphine Pain Pump 1 DOSE) INTRATHECA SCH (16:25)
[2017-07-03 17:11] LABS: Glucose,Whole Blood 145 mg/dL (75-99)
[2017-07-03] MEDS: ISOSORBIDE MONONITRATE ER 60 MG TAB.ER.24H PO SCH (20:24)
[2017-07-03] MEDS: LEVOTHYROXINE 100 MCG TAB PO SCH (20:24)
[2017-07-03] MEDS: ATORVASTATIN 20 MG TAB PO SCH (20:24)
[2017-07-03] MEDS: PANTOPRAZOLE 40 MG TABLET PO SCH (20:24)
[2017-07-03] MEDS: DONEPEZIL 10 MG TAB PO SCH (20:24)
[2017-07-03] MEDS: TAMSULOSIN 0.4 MG CAP.ER.24H PO SCH (20:24)
[2017-07-03] MEDS: LEVOTHYROXINE 75 MCG TAB PO SCH (20:24)
[2017-07-03 20:26] LABS: Glucose,Whole Blood 191 mg/dL (75-99)
[2017-07-03] MEDS: traZODone HCL 50 MG TAB PO PRN ×2 (20:26→20:27)
[2017-07-03] MEDS: LORazepam 0.5 MG TAB PO PRN (23:13)
[2017-07-03] MEDS: IPRATROPIUM-ALBUTEROL 3 ML NEB INHALATION PRN (23:39)
--- NOTE | 2017-07-04 00:07 | PN ---
PROGRESS NOTE DATE OF SERVICE: 07/03/2017 PRESENTING COMPLAINT: Short of breath. INTERVAL HISTORY: The patient has severe COPD exacerbation and pneumonia, status post bronchoscopy lavage, breathing is much improved, tolerating a diet and had a bowel movement. Comfortable. REVIEW OF SYSTEMS: Done for constitutional, cardiovascular, GI, pulmonary and relevant findings as above. CURRENT MEDICATIONS: Reviewed that include Symbicort, IV Solu-Medrol and IV Zosyn. PHYSICAL EXAMINATION: Temperature 98.1, pulse 84, respirations 22, blood pressure 129/72. GENERAL APPEARANCE: Lying in bed, comfortable. EYES: Pupils equal. Conjunctivae normal. HEENT: External appearance of nose and ears normal. Oral cavity normal. NECK: JVD not raised. Mass not palpable. RESPIRATORY: Effort increased. LUNGS: Decreased breath sounds, prolonged expiration. CARDIOVASCULAR: First and second sounds, no edema. ABDOMEN: Soft, nontender. Liver and spleen not palpable. PSYCHIATRY: Alert and oriented x3. Mood and affect normal. INVESTIGATIONS: Accu-Cheks are noted. ASSESSMENT: 1. Acute severe chronic obstructive pulmonary disease exacerbation, status post bronchoalveolar lavage with clinical improvement. 2. Pneumonia positive for Klebsiella pneumonia. 3. Gastroesophageal reflux disease. 4. Essential hypertension. 5. Hyperlipidemia. 6. Benign prostatic hypertrophy. 7. Chronic rheumatoid arthritis. 8. Hypothyroid. 9. Chronic hypoxic respiratory failure from underlying chronic obstructive pulmonary disease. 10.Colonic diverticulosis. 11.Alzheimer's dementia, late onset type. 12.Restless legs syndrome. 13.Gait dysfunction at baseline using a walker. 14.Chronic pain syndrome for which the patient has intrathecal pain pump. PLAN: At this point the patient's Solu-Medrol will be discontinued. Zosyn will be switched over to Augmentin. Overall doing much better. MMODL / IJN: [id number] /
[2017-07-04] MEDS: IPRATROPIUM-ALBUTEROL 3 ML NEB INHALATION PRN (04:41)
[2017-07-04 07:28] LABS: Glucose,Whole Blood 166 mg/dL (75-99)
[2017-07-04] MEDS: SENNOSIDES 8.6 MG TAB PO SCH (07:51)
[2017-07-04] MEDS: GABAPENTIN 400 MG CAP PO SCH (07:53)
[2017-07-04] MEDS: INSULIN ASPART 100 UNIT/ML 1 ML 10 ML VIAL SQ SCH ×2 (07:54→12:28)
[2017-07-04] MEDS: FLUCONAZOLE 100 MG TAB PO SCH (07:54)
[2017-07-04] MEDS: guaiFENesin 600 MG TABLET.ER PO SCH (07:54)
[2017-07-04] MEDS: DILTIAZEM CD 120 MG CAP.ER.24H PO SCH (07:54)
[2017-07-04] MEDS: ENOXAPARIN 40 MG/0.4 ML SYRINGE SQ SCH (07:55)
[2017-07-04 08:07] VITALS: BP 119/68; TEMP 98
[2017-07-04] MEDS ORDERED: AMOXIC-POT CLAV 875-125MG 1 EACH TAB PO SCH (09:00)
[2017-07-04] MEDS ORDERED: predniSONE 20 MG TAB PO SCH (09:00)
[2017-07-04] MEDS: IPRATROPIUM-ALBUTEROL 3 ML NEB INHALATION SCH ×2 (09:35→13:03)
[2017-07-04] MEDS: SYMBICORT 160-4.5 MCG INHALER INHALATION SCH (09:35)
[2017-07-04 09:39] VITALS: RESP 16
[2017-07-04 11:16] LABS: Glucose,Whole Blood 151 mg/dL (75-99)
--- NOTE | 2017-07-04 11:20 | P.PN ---
Subjective Progress Note Date: 07/04/17 Principal diagnosis: Acute exacerbation of severe oxygen-dependent chronic obstructive pulmonary disease Bill is a 82-year-old white male patient of Dr. Elkins, who presented to the emergency department on 06/27/2017 at 1223 with complaints of increasing shortness of breath, chest congestion, productive cough, wheezing. He did have a fever in the emergency room with a temp of 101F, patient has a congested cough with occasional expectoration of dark brown sputum. Patient's chest x- ray showed atelectasis without any significant pneumonic process. Patient has an underlying chronic hypoxic respiratory failure secondary to COPD, he wears home O2 at 2 L/m. In the past few months patient has had multiple recurrent hospitalizations for COPD exacerbation. His maintenance inhalers include Breo- Ellipta, Duoneb. Patient's baseline FEV1 is 73% of predicted. Other medical history includes hypertension, hypothyroidism, GERD, BPH, rheumatoid arthritis, hyperlipidemia, dementia, diverticulitis, previous CVA. Patient follows with Dr. Diaz for his history of COPD. Patient has been afebrile while inpatient, hemodynamically stable. Lung sounds reveal significant wheezing and congestion. Patient was started on IV Solu-Medrol, Symbicort, and DuoNeb, doxycycline and was admitted for further management. On 06/29/2017 patient remains significantly wheezy, congested, dyspneic at rest. He states there is no improvement in his pulmonary condition. Currently on 3 L per nasal cannula with a pulse ox of 96%. He is afebrile, slightly tachycardic with a heart rate up to 118 BPM. Lung sounds positive for diffuse wheezes and rhonchi. At times she is able to bring up brown color sputum. He continues on combination of doxycycline, Symbicort, DuoNeb, IV steroids. In view of lack of improvement in patient's condition and his ongoing congestion, patient will be scheduled for bronchoscopy with BAL by Dr. Jones on Tuesday at 11 AM On 06/30/2017 patient seen in follow-up. He remains bronchospastic and congested. He remains dyspneic at rest. He states today he is not bringing any sputum up. Denies any fever or chills, remains afebrile, tachycardic with a heart rate up to 120 BPM. On 2 L per nasal cannula his O2 sat at 96%. Remains limited in terms of activity tolerance. Currently on doxycycline, IV steroids, DuoNeb, and Symbicort. The plan is to proceed with bronchoscopy with BAL by Dr. Jones on Tuesday at 11 AM. His was discussed with the patient, who was in agreement. On 07/01/2017 patient seen in follow-up. Remains wheezy and congested, not able to expectorate any sputum today. He states his chest feels tight, has been on bedrest for the most part. Remains on 2 L per nasal cannula with O2 sat 95%. Afebrile, hemodynamically stable. Lung sounds are positive for diffuse wheezes and scattered rhonchi. The plan is to proceed with bronchoscopy with BAL by Dr. Jones today. Progress note dated 07/02/2017 This is a 83-year-old male who underwent bronchoscopy and BAL airway examination and therapeutic lavage yesterday. The patient was admitted with a diagnosis of COPD exacerbation, complicated by purulent tracheobronchitis moderately severe COPD with an FEV1 that was 73% of predicted gastroesophageal reflux disease hypertension hyperlipidemia BPH and rheumatoid arthritis hypothyroidism dementia chronic gait dysfunction history of Pseudomonas pneumonia restless leg syndrome and chronic back pain among other diagnoses. He is feeling a bit better today. Probably not yet ready for discharge. He had thick secretions noted throughout his lungs. They were suctioned. BAL samples were sent from the right middle lobe. He probably will need another day or 2 in the hospital with breathing treatments and antibiotics and steroids. The patient is feeling better today. Certainly not back to baseline. Progress note dated 07/03/2017 83-year-old male who underwent bronchoscopy and BAL late last week. I believe we did him on Tuesday. The patient states that he is feeling a bit better. Less short of breath. He was admitted with a diagnosis of COPD exacerbation complicated by purulent tracheobronchitis. He also suffers from gastroesophageal reflux disease hypertension hyperlipidemia BPH rheumatoid arthritis hypothyroidism dementia chronic gait dysfunction and previous history of Pseudomonas pneumonia. In addition, he has a history of restless leg syndrome and chronic back pain. He is feeling a bit better. When I first entered the room he is sleeping flat on his back. Without any respiratory distress. No wheezing coughing or shortness of breath to speak of. We did remove a lot of airway secretions we'll begin his bronchoscopy on Tuesday. Sampling his sent to the lab and is currently negative or pending. On 07/04/2017 patient seen again in follow-up. He has been ambulating without his oxygen, tolerating activity well. Vital signs are stable, she is afebrile, on 2 L per nasal cannula with O2 sat 96%. Lung sounds are negative for any wheezes, with a few scattered rhonchi, overall much improved since admission. Bronchial washing cultures are positive for Serratia marcescens and Klebsiella pneumonia both of which are sensitive to Zosyn. Patient has been switched to oral Augmentin after 2 days of IV Zosyn treatment. Overall patient reports prove maintain his dyspnea, chest congestion and wheezing. No acute events overnight, increase activity as tolerated, patient is stable for discharge home today from pulmonary standpoint. Follow-up with Dr. Jones in the office in one week Objective - Vital Signs Vital signs: Vital Signs Temp 98 F 07/04/17 07:00 Pulse 75 07/04/17 09:45 Resp 16 07/04/17 09:35 BP 119/68 07/04/17 07:00 Pulse Ox 96 07/04/17 07:00 Intake & Output 07/03/17 07/04/17 07/04/17 18:59 06:59 18:59 Intake Total 50 360 Balance 50 360 Intake: Intake, IV Titration 50 Amount Piperacillin-Tazobactam 3 50 .375 gm In Dextrose/Water 1 50ml.bag @ 12.5 mls/hr IVPB Q8HR [facility] Rx#: [id number] Oral 360 Other: Voiding Method Toilet Toilet Toilet Urinal Urinal Urinal # Voids 2 - Exam GENERAL EXAM: Alert, 82-year-old white male comfortable in no apparent distress. HEAD: Normocephalic/atraumatic. EYES: Normal reaction of pupils, equal size. Conjunctiva pink, sclera white. NOSE: Clear with pink turbinates. THROAT: No erythema or exudates. NECK: No masses, no JVD, no thyroid enlargement, no adenopathy. CHEST: No chest wall deformity. Symmetrical expansion. LUNGS: Equal air entry with a few scattered rhonchi, no wheezes noted. CVS: Regular rate and rhythm, normal S1 and S2, no gallops, no murmurs, no rubs ABDOMEN: Soft, nontender. No hepatosplenomegaly, normal bowel sounds, no guarding or rigidity. EXTREMITIES: No clubbing, no edema, no cyanosis, 2+ pulses and upper and lower extremities. MUSCULOSKELETAL: Muscle strength and tone normal. SPINE: No scoliosis or deformity SKIN: No rashes CENTRAL NERVOUS SYSTEM: Alert and oriented -3. No focal deficits, tone is normal in all 4 extremities. PSYCHIATRIC: Alert and oriented -3. Appropriate affect. Intact judgment and insight. - Labs CBC & Chem 7: 07/01/17 07:03 07/01/17 07:03 Labs: Abnormal Lab Results - Last 24 Hours (Table) 07/03/17 07/03/17 07/03/17 Range/Units 11:08 17:08 20:25 POC Glucose (mg/dL) 168 H 145 H 191 H (75-99) mg/dL 07/04/17 Range/Units 07:27 POC Glucose (mg/dL) 166 H (75-99) mg/dL Microbiology - Last 24 Hours (Table) 07/01/17 12:00 Gram Stain - Final Bronchial Washings - Right Bronchial Washings Culture - Final Serratia marcescens Klebsiella pneumoniae Assessment and Plan Plan: Assessment: #1. 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 Chest x-ray did not show any evidence of pneumonia. Patient is status post bronchoscopy with BAL on , and the bronchial washings were positive for Serratia marcescens and Klebsiella pneumonia with sensitivity to beta lactam antibiotics. Patient was started on IV Zosyn on 07/02/2017 and has been switched to oral Augmentin on . Cytology results are still pending at this time. #2. Recurrent hospitalizations for COPD exacerbation, most recently hospitalized 2 weeks ago, discharged home on 06/18/2017 #3. Moderately severe COPD, with a baseline FEV1 of 73% of predicted, oxygen dependent, GOLD stage II #3. Gastroesophageal reflux disease #4. Hypertension, hyperlipidemia #5. History of BPH #6. Chronic rheumatoid arthritis #7. Hypothyroidism #8. Dementia #9. Chronic gait dysfunction #10. History of pseudomonal pneumonia #11. Restless leg syndrome #12. Chronic back pain Plan: Patient continues to improve, has been up ambulating extensively in the hallway today, tolerating it well. No wheezes noted today's exam, lung sounds reveal good air entry bilaterally, with only a few scattered rhonchi. Vital signs are stable. Bronchial washing cultures are positive for Serratia marcescens and Klebsiella pneumonia with sensitivity to Zosyn. Patient has been treated with IV Zosyn, and now has been switched to oral Augmentin. From pulmonary standpoint patient is stable for discharge home today on prednisone taper, on ten-day course of Augmentin, his maintenance inhalers and nebulized treatments. Follow-up with Dr. Jones in the office in one week. I performed a history & physical examination of the patient and discussed their management with my nurse practitioner, Marta Herrera. I reviewed the nurse practitioner's note and agree with the documented findings and plan of care. Lung sounds are positive for scattered rhonchi. The findings and the impression was discussed with the patient. I attest to the documentation by the nurse practitioner. Time with Patient: Less than 30
[2017-07-04] MEDS: MULTIVITAMINS, THERA 1 EACH TAB PO SCH (12:28)
[2017-07-04 13:06] VITALS: PULSE 72
--- NOTE | 2017-07-05 06:03 | DS ---
DISCHARGE SUMMARY DATE OF ADMISSION: 06/29/2017. DATE OF DISCHARGE: 07/04/2017. FINAL DIAGNOSES: 1. Acute severe chronic obstructive pulmonary disease exacerbation, status post bronchoalveolar lavage with clinical improvement. 2. Pneumonia bilateral with cultures positive for Klebsiella pneumoniae. 3. Gastroesophageal reflux disease. 4. Essential hypertension. 5. Hyperlipidemia. 6. Benign prostatic hypertrophy. 7. Chronic rheumatoid arthritis. 8. Hypothyroid. 9. Chronic hypoxic respiratory failure from underlying chronic obstructive pulmonary disease. 10.Colonic diverticulosis. 11.Alzheimer's dementia, late onset type. 12.Restless legs syndrome. 13.Gait dysfunction at baseline uses a walker. 14.Chronic pain syndrome for which patient has got intrathecal pain pump. CONSULTATIONS: Dr. Jones from [facility]. HOSPITAL COURSE: This patient presented with COPD exacerbation, was wheezing quite a bit and congested. Did finally undergo bronchoscopy with lavage. Did have a good response to the same. Cultures came back positive for Klebsiella pneumoniae and some Serratia marcescens. The patient responded well to the current antibiotics. Doing much better by the time of discharge. ON EXAMINATION: LUNGS: Decreased breath sounds. Tolerating diet well. PSYCH: AO x3. Care was discussed with the patient. DISCHARGE MEDICATIONS: 1. Lipitor 20 mg q.h.s. 2. Aricept 10 mg p.o. q.h.s. 3. Gabapentin 800 mg p.o. t.i.d. 4. Imdur ER 60 mg p.o. q.h.s. 5. Ativan 0.5 p.o. t.i.d. p.r.n. 6. Synthroid 175 mcg p.o. q.h.s. 7. Omeprazole 40 mg q.h.s. 8. Flomax 0.8 mg q.h.s. 9. Requip 0.5 mg p.o. t.i.d. 10.Trazodone 150 mg q.h.s. p.r.n. 11.Morphine intrathecal pump. 12.Senokot 17.2 mg p.o. b.i.d. 13.DuoNeb q.i.d. 14.Multivitamin 1 tablet p.o. daily. 15.Nitrostat 0.4 sublingual q.5 p.r.n. 16.Symbicort 160/4.5 two puffs b.i.d. 17.Cardizem CD 120 mg a day. 18.Augmentin 875 one tablet p.o. q.12 for 10 days. 19.Mucinex 1200 mg p.o. q.12. 20.Prednisone taper. 21.Home oxygen to continue. Follow up with Dr. Jones on 07/08/2017; Dr. Elkins on 07/13/2017. Home oxygen to continue. MMODL / IJN: [id number] /
== END 2017-07-04 15:45 | disposition home or self-care (01) | DRG 166 ==
LOC: EC 12:23 → 5MS5E 14:20 → OBSVTOIN 06-29 15:22 → 5MS5E 07-01 08:09
PROVIDERS: ADMIT Hospitalist; ATTEND Hospitalist
PROC: 0B9D8ZX Drainage of Right Middle Lung Lobe, Via Natural or Artificial Opening Endoscopic, Diagnostic (ICD-10-PCS; principal; 2017-07-01 11:35)
DX: J44.0 Chronic obstructive pulmonary disease with (acute) lower respiratory infection (principal); J96.21 Acute and chronic respiratory failure with hypoxia; J15.0 Pneumonia due to Klebsiella pneumoniae; J96.22 Acute and chronic respiratory failure with hypercapnia; G30.1 Alzheimer's disease with late onset; F02.80 Dementia in other diseases classified elsewhere, unspecified severity, without behavioral disturbance, psychotic disturbance, mood disturbance, and anxiety; J44.1 Chronic obstructive pulmonary disease with (acute) exacerbation; J20.9 Acute bronchitis, unspecified; E03.9 Hypothyroidism, unspecified; E78.5 Hyperlipidemia, unspecified; F41.9 Anxiety disorder, unspecified; G25.81 Restless legs syndrome; G89.4 Chronic pain syndrome; H54.7 Unspecified visual loss; I10 Essential (primary) hypertension; K21.9 Gastro-esophageal reflux disease without esophagitis; K57.30 Diverticulosis of large intestine without perforation or abscess without bleeding; M06.9 Rheumatoid arthritis, unspecified; N40.0 Benign prostatic hyperplasia without lower urinary tract symptoms; Z79.51 Long term (current) use of inhaled steroids; Z79.899 Other long term (current) drug therapy; Z80.1 Family history of malignant neoplasm of trachea, bronchus and lung; Z82.49 Family history of ischemic heart disease and other diseases of the circulatory system; Z86.73 Personal history of transient ischemic attack (TIA), and cerebral infarction without residual deficits; Z87.01 Personal history of pneumonia (recurrent); Z87.891 Personal history of nicotine dependence; Z99.81 Dependence on supplemental oxygen; Z88.0 Allergy status to penicillin; Z91.041 Radiographic dye allergy status; Z79.890 Hormone replacement therapy; Z79.891 Long term (current) use of opiate analgesic; Z89.022 Acquired absence of left finger(s); Z96.89 Presence of other specified functional implants
CPT/HCPCS: 31624; 36415; 71046; 80048; 80053; 82550; 82553; 83735; 83880; 84484; 85025; 85610; 85730; 87070; 87077; 87102; 87116; 87186; 87205; 87206; 87252; 87496; 87498; 87502; 87529; 87634; 87798; 88108; 88305; 89050; 93005; 94640; 94760; 96361; 96374; 99285

== ENCOUNTER → 2017-08-09 | Outpatient (CLI) | payer MEDICARE, BC | END | disposition home or self-care (01) | LOC: RADMRIMAIN 06:55 | PROVIDERS: ATTEND Psychiatry & Neurology Neurology | DX: Z53.8 Procedure and treatment not carried out for other reasons (principal) ==

== ENCOUNTER 2017-11-18 15:07 | Inpatient (IN) | payer MEDICARE, BC ==
[2017-11-18] MEDS ORDERED: IPRATROPIUM 0.5 MG/2.5 ML NEBU INHALATION STA (15:23)
[2017-11-18] MEDS ORDERED: ALBUTEROL NEBULIZED 2.5 MG/3 ML INHALATION STA (15:23)
[2017-11-18] MEDS ORDERED: methylPREDNISolone SOD SUCCI 125 MG/2 ML VIAL IV STA (15:23)
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
[2017-11-18 15:51] LABS: Basophils % (A) 0 %; Eosinophils # (A) 0.1 k/uL (0-0.7); Eosinophils % (A) 2 %; HCT 38.3 % (39.0-53.0); HGB 12.6 gm/dL (13.0-17.5); Lymphocytes # (A) 1.3 k/uL (1.0-4.8); Lymphocytes % (A) 22 %; MCH 30.9 pg (25.0-35.0); MCV 93.7 fL (80.0-100.0); Monocytes # (A) 0.2 k/uL (0-1.0); Monocytes % (A) 3 %; Neutrophils % (A) 71 %; Platelet Count 150 k/uL (150-450); RBC 4.08 m/uL (4.30-5.90); RDW 13.8 % (11.5-15.5); WBC 5.7 k/uL (3.8-10.6)
[2017-11-18 15:55] LABS: Partial Thromboplastin Time 27.5 sec (22.0-30.0)
[2017-11-18 16:03] LABS: Albumin 3.7 g/dL (3.5-5.0); Calcium 9.1 mg/dL (8.4-10.2); Creatine Kinase 443 U/L (55-170); Magnesium 1.9 mg/dL (1.6-2.3); Potassium 4.1 mmol/L (3.5-5.1); Total Bilirubin 0.9 mg/dL (0.2-1.3); Total Protein 6.1 g/dL (6.3-8.2)
[2017-11-18 16:16] LABS: Creatine Kinase MB 1.8 ng/mL (0.0-2.4); Troponin I <0.012 ng/mL (0.000-0.034)
[2017-11-18] MEDS ORDERED: ACETAMINOPHEN TAB 500 MG TAB PO STA (16:37)
--- NOTE | 2017-11-18 17:00 | XR ---
EXAMINATION TYPE: XR chest 2V DATE OF EXAM: 11/18/2017 COMPARISON: 07/08/2017 HISTORY: Cough TECHNIQUE: Frontal and lateral views of the chest are obtained. FINDINGS: There is no heart failure nor confluent pneumonic infiltrate. Costophrenic angles are john r. Thoracic aorta is atheromatous. There are chest leads. Bony thorax is intact. IMPRESSION: No active cardiopulmonary disease. Atheromatous aorta. No change.
[2017-11-18] MEDS ORDERED: cefTRIAXone IN SWFI 1,000 MG/10 ML SYRINGE IVP STA (17:05)
[2017-11-18] MEDS ORDERED: AZITHROMYCIN 500 MG in DEXTROSE 5% IN WATER 250 ML IVPB STA ×2 (17:05)
[2017-11-18] MEDS ORDERED: HYDROcodone/APAP 10-325MG 1 EACH TAB PO PRN (17:11)
[2017-11-18] MEDS ORDERED: IPRATROPIUM-ALBUTEROL 3 ML NEB INHALATION PRN (17:12)
[2017-11-18] MEDS: methylPREDNISolone SOD SUCCI 125 MG/2 ML VIAL IV SCH (18:02)
[2017-11-18] MEDS: GABAPENTIN 400 MG CAP PO SCH ×2 (18:05→21:55)
[2017-11-18] MEDS ORDERED: NALOXONE 0.4 MG/ML 1 ML VIAL IV PRN (18:57)
[2017-11-18] MEDS ORDERED: MELATONIN 3 MG TABLET PO PRN (18:57)
[2017-11-18] MEDS ORDERED: ACETAMINOPHEN TAB 325 MG TAB PO PRN (18:57)
[2017-11-18] MEDS ORDERED: ALBUTEROL NEBULIZED 2.5 MG/3 ML INHALATION PRN (18:59)
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
[2017-11-18 20:28] LABS: Appearance,Urine Clear (Clear); Bilirubin,Urine Negative (Negative); Blood,Urine Negative (Negative); Color,Urine Yellow; Glucose,Urine (UA) Negative (Negative); Ketones,Urine 2+ (Negative); Leukocyte Esterase,Urine Negative (Negative); Mucus,Urine Rare /hpf; Nitrite,Urine Negative (Negative); PH, Urine 8.5 (5.0-8.0); Protein,Urine 1+ (Negative); RBC,Urine 3 /hpf (0-5); Specific Gravity,Urine 1.019 (1.001-1.035); Squamous Epithelial Cell,Urine <1 /hpf (0-4); WBC,Urine 1 /hpf (0-5)
[2017-11-18] MEDS: LORazepam 0.5 MG TAB PO PRN (20:41)
[2017-11-18] MEDS: HYDROcodone/APAP 10-325MG 1 EACH TAB PO PRN (20:45)
[2017-11-18] MEDS: IPRATROPIUM-ALBUTEROL 3 ML NEB INHALATION SCH (20:55)
[2017-11-18] MEDS: SENNOSIDES 8.6 MG TAB PO SCH (21:52)
[2017-11-18] MEDS: guaiFENesin 600 MG TABLET.ER PO SCH (21:52)
[2017-11-18] MEDS: DOXEPIN 25 MG CAP PO SCH (21:52)
[2017-11-18] MEDS: FAMOTIDINE 20 MG TAB PO SCH (21:52)
[2017-11-18] MEDS: TAMSULOSIN 0.4 MG CAP.ER.24H PO SCH (21:54)
[2017-11-18] MEDS: DONEPEZIL 10 MG TAB PO SCH (21:54)
[2017-11-19] MEDS: methylPREDNISolone SOD SUCCI 125 MG/2 ML VIAL IV SCH ×5 (00:59→23:06)
[2017-11-19] MEDS: HYDROcodone/APAP 10-325MG 1 EACH TAB PO PRN ×3 (04:24→23:07)
[2017-11-19] MEDS: LEVOTHYROXINE 75 MCG TAB PO SCH (06:49)
[2017-11-19] MEDS: LEVOTHYROXINE 100 MCG TAB PO SCH (06:50)
[2017-11-19 07:40] LABS: HCT 40.5 % (39.0-53.0); HGB 13.4 gm/dL (13.0-17.5); MCH 31.5 pg (25.0-35.0); MCHC 33.2 g/dL (31.0-37.0); Platelet Count 137 k/uL (150-450); RBC 4.27 m/uL (4.30-5.90); RDW 13.8 % (11.5-15.5)
[2017-11-19 08:02] LABS: Calcium 9.3 mg/dL (8.4-10.2); Magnesium 1.8 mg/dL (1.6-2.3); Potassium 3.8 mmol/L (3.5-5.1)
[2017-11-19] MEDS: GABAPENTIN 400 MG CAP PO SCH ×3 (08:17→21:42)
[2017-11-19] MEDS: guaiFENesin 600 MG TABLET.ER PO SCH ×2 (08:17→21:45)
[2017-11-19] MEDS: LORazepam 0.5 MG TAB PO PRN ×2 (08:17→21:58)
[2017-11-19] MEDS: FAMOTIDINE 20 MG TAB PO SCH ×2 (08:18→21:42)
[2017-11-19] MEDS: ENOXAPARIN 40 MG/0.4 ML SYRINGE SQ SCH (08:18)
[2017-11-19] MEDS: SENNOSIDES 8.6 MG TAB PO SCH ×2 (08:18→21:51)
[2017-11-19] MEDS: IPRATROPIUM-ALBUTEROL 3 ML NEB INHALATION SCH ×4 (08:38→19:22)
[2017-11-19] MEDS: ATORVASTATIN 20 MG TAB PO SCH (08:56)
[2017-11-19] MEDS: DILTIAZEM CD 120 MG CAP.ER.24H PO SCH (08:56)
[2017-11-19] MEDS: FLUTICASONE 50MCG/SPRAY NASAL 16GM EA NOSTRIL SCH (08:56)
[2017-11-19] MEDS: ISOSORBIDE MONONITRATE ER 60 MG TAB.ER.24H PO SCH (08:56)
[2017-11-19] MEDS: FUROSEMIDE 20 MG TAB PO SCH (08:56)
--- NOTE | 2017-11-19 10:58 | XR ---
EXAMINATION TYPE: XR chest 1V portable DATE OF EXAM: 11/19/2017 HISTORY: shortnes of breath. REFERENCE: Previous study dated 11/18/2017. FINDINGS: Heart size upper limits of normal. The lungs are clear. Pleural spaces are clear. IMPRESSION: BORDERLINE CARDIOMEGALY.
[2017-11-19 12:26] LABS: Glucose,Whole Blood 172 mg/dL (75-99)
--- NOTE | 2017-11-19 12:33 | P.PN ---
Subjective Progress Note Date: 11/19/17 Principal diagnosis: Shortness of breath Patient is an 82-year-old male with past medical history of hypertension, COPD with O2 dependency at night, GERD, BPH who presented to the hospital with complaints of shortness of breath. The ER he underwent an extensive evaluation. On arrival he was initially afebrile but then spiked a fever of 101.4. He was tachycardic to 104. The remainder of his vital signs were within normal limits. Initial laboratory analysis was unremarkable. Chest x-ray showed no acute process. He was given breathing treatments, IV steroids, and Zithromax. Arrangements were made for admission. Urinalysis was negative. He spiked a fever again over 90 on 11/18. Repeat chest x-ray in the morning of 11/19 was again showing no acute process. It was felt that he likely had a viral infection. Patient seen and examined at bedside. States that breathing is still hard and Telfa better than yesterday. Still with depressed appetite. Feeling very fatigued and worn out. No chest pain. Objective - Vital Signs Vital signs: Vital Signs Temp 98.2 F 11/19/17 06:49 Pulse 84 11/19/17 08:53 Resp 20 11/19/17 08:00 BP 124/81 11/19/17 06:49 Pulse Ox 93 L 11/19/17 06:49 Intake & Output 11/18/17 11/19/17 11/19/17 18:59 06:59 18:59 Intake Total 850 Balance 850 Weight 99.79 kg Intake: Oral 850 Other: # Voids 10 4 # Bowel Movements 0 - Exam General: Ill appearing, no distress, appears at stated age Derm: warm, dry Head: atraumatic, normocephalic, symmetric Eyes: EOMI, no lid lag, anicteric sclera Mouth: no lip lesion, mucus membranes moist Cardiovascular: S1-S2 regular, no murmur, positive posterior tibial pulse bilateral, Lungs: Wheeze right anterior chest and rhonchi bilateral bases, no accessory muscle use Abdominal: soft, nontender to palpation, no guarding, no appreciable organomegaly Ext: no gross muscle atrophy, no edema, no contractures Neuro: CN II-XI grossly intact, no focal neuro deficits Psych: Alert, oriented, appropriate affect - Labs CBC & Chem 7: 11/19/17 07:06 11/19/17 07:06 Labs: Abnormal Lab Results - Last 24 Hours (Table) 11/18/17 11/18/17 11/18/17 Range/Units 15:33 15:33 15:33 RBC 4.08 L (4.30-5.90) m/uL Hgb 12.6 L (13.0-17.5) gm/dL Hct 38.3 L (39.0-53.0) % Plt Count (150-450) k/uL Chloride 109 H (98-107) mmol/L Glucose (74-99) mg/dL Total Creatine Kinase 443 H (55-170) U/L Total Protein 6.1 L (6.3-8.2) g/dL Urine pH (5.0-8.0) Urine Protein (Negative) Urine Ketones (Negative) Urine Mucus (None) /hpf 11/18/17 11/19/17 11/19/17 Range/Units 20:00 07:06 07:06 RBC 4.27 L (4.30-5.90) m/uL Hgb (13.0-17.5) gm/dL Hct (39.0-53.0) % Plt Count 137 L (150-450) k/uL Chloride (98-107) mmol/L Glucose 139 H (74-99) mg/dL Total Creatine Kinase (55-170) U/L Total Protein (6.3-8.2) g/dL Urine pH 8.5 H (5.0-8.0) Urine Protein 1+ H (Negative) Urine Ketones 2+ H (Negative) Urine Mucus Rare H (None) /hpf Assessment and Plan Assessment: Acute exacerbation of COPD -Bronchodilators -Steroids -Zithromax -Pulmonary hygiene -Expectorant - morning BS slightly elevated start SSI Chronic hypoxic respiratory failure -Continue with O2 supplementation -At home typically wears only at night -Follows with Dr. Afshin Romo probable viral etiology -No definitive source -UA and repeat chest x-ray negative -Await blood cultures -Follow fever profile Hypertension, controlled -Continue home medications with Imdur, Lasix, diltiazem -Follow blood pressures BPH -Continue with Flomax GERD -Continue with PPI Chronic pain: -Has morphine pain pump -Continue with as needed [place] and gabapentin Chronic medical conditions: Dementia Hypothyroidism Carpal tunnel Rheumatoid arthritis Restless leg syndrome Thrombocytopenia DVT prophylaxis: Lovenox Discussed with: Patient, Nursing Anticipated discharge date: 11/[address]: Home A total of 35 minutes was spent on the care of this complex patient more than 50% of the time was spent in counseling and care coordination.
[2017-11-19] MEDS: INSULIN ASPART 100 UNIT/ML 1 ML 10 ML VIAL SQ SCH ×3 (12:47→21:45)
[2017-11-19 17:15] LABS: Glucose,Whole Blood 144 mg/dL (75-99)
[2017-11-19] MEDS: AZITHROMYCIN 500 MG TAB PO SCH (17:25)
[2017-11-19] MEDS ORDERED: ONDANSETRON 4 MG/2 ML VIAL IVP PRN (18:43)
[2017-11-19 20:37] LABS: Glucose,Whole Blood 149 mg/dL (75-99)
[2017-11-19] MEDS: DOXEPIN 25 MG CAP PO SCH (21:43)
[2017-11-19] MEDS: TAMSULOSIN 0.4 MG CAP.ER.24H PO SCH (21:44)
[2017-11-19] MEDS: DONEPEZIL 10 MG TAB PO SCH (21:45)
[2017-11-20] MEDS: methylPREDNISolone SOD SUCCI 125 MG/2 ML VIAL IV SCH ×3 (06:28→17:51)
[2017-11-20] MEDS: LEVOTHYROXINE 100 MCG TAB PO SCH (06:28)
[2017-11-20] MEDS: LEVOTHYROXINE 75 MCG TAB PO SCH (06:28)
[2017-11-20] MEDS: IPRATROPIUM-ALBUTEROL 3 ML NEB INHALATION SCH ×4 (07:18→20:05)
[2017-11-20 07:57] LABS: Glucose,Whole Blood 165 mg/dL (75-99)
[2017-11-20] MEDS: ENOXAPARIN 40 MG/0.4 ML SYRINGE SQ SCH (08:24)
[2017-11-20] MEDS: INSULIN ASPART 100 UNIT/ML 1 ML 10 ML VIAL SQ SCH ×4 (08:24→21:13)
[2017-11-20] MEDS: FLUTICASONE 50MCG/SPRAY NASAL 16GM EA NOSTRIL SCH (08:24)
[2017-11-20 08:25] LABS: HCT 41.9 % (39.0-53.0); MCH 31.2 pg (25.0-35.0); MCHC 33.3 g/dL (31.0-37.0); MCV 93.6 fL (80.0-100.0); Mean Platelet Volume 7.6; Platelet Count 168 k/uL (150-450); RBC 4.48 m/uL (4.30-5.90); RDW 13.6 % (11.5-15.5); WBC 10.5 k/uL (3.8-10.6)
[2017-11-20] MEDS: DILTIAZEM CD 120 MG CAP.ER.24H PO SCH (08:25)
[2017-11-20] MEDS: FAMOTIDINE 20 MG TAB PO SCH ×2 (08:25→21:06)
[2017-11-20] MEDS: GABAPENTIN 400 MG CAP PO SCH ×3 (08:26→21:07)
[2017-11-20] MEDS: ISOSORBIDE MONONITRATE ER 60 MG TAB.ER.24H PO SCH (08:26)
[2017-11-20] MEDS: ATORVASTATIN 20 MG TAB PO SCH (08:26)
[2017-11-20] MEDS: HYDROcodone/APAP 10-325MG 1 EACH TAB PO PRN ×2 (08:26→22:01)
[2017-11-20] MEDS: FUROSEMIDE 20 MG TAB PO SCH (08:26)
[2017-11-20] MEDS: guaiFENesin 600 MG TABLET.ER PO SCH ×2 (08:26→21:06)
[2017-11-20] MEDS: SENNOSIDES 8.6 MG TAB PO SCH ×2 (08:26→21:16)
[2017-11-20 08:37] LABS: Calcium 8.6 mg/dL (8.4-10.2)
[2017-11-20 08:39] LABS: Potassium 4.1 mmol/L (3.5-5.1)
[2017-11-20 12:08] LABS: Glucose,Whole Blood 158 mg/dL (75-99)
[2017-11-20 16:52] LABS: Glucose,Whole Blood 161 mg/dL (75-99)
[2017-11-20] MEDS: AZITHROMYCIN 500 MG TAB PO SCH (17:52)
--- NOTE | 2017-11-20 19:30 | P.PN ---
Subjective Progress Note Date: 11/20/17 Principal diagnosis: Shortness of breath Patient is an 82-year-old male with past medical history of hypertension, COPD with O2 dependency at night, GERD, BPH who presented to the hospital with complaints of shortness of breath. The ER he underwent an extensive evaluation. On arrival he was initially afebrile but then spiked a fever of 101.4. He was tachycardic to 104. The remainder of his vital signs were within normal limits. Initial laboratory analysis was unremarkable. Chest x-ray showed no acute process. He was given breathing treatments, IV steroids, and Zithromax. Arrangements were made for admission. Urinalysis was negative. He spiked a fever again over 101 on 11/18. Repeat chest x-ray in the morning of 11/19 was again showing no acute process. It was felt that he likely had a viral infection. He was maintained on steroids and bronchodilators. Patient seen and examined at bedside. Feeling very depressed and blue today regarding his overall prognosis. Wants to still be able to do things outside to get short of breath frequently. He thinks his breathing is somewhat improved but he still feeling very fatigued. No chest pain. Appetite is still low. Spiked a fever of 100.1 at 7 AM this morning. Discussed with patient's importance of pacing himself will doing projects around the house. Also discussed wearing a mask if he is going to be exposed to chemicals to ensure his COPD doesn't flare. Objective - Vital Signs Vital signs: Vital Signs Temp 98.4 F 11/20/17 14:05 Pulse 90 11/20/17 15:18 Resp 18 11/20/17 14:05 BP 131/80 11/20/17 14:05 Pulse Ox 97 11/20/17 14:05 Intake & Output 11/19/17 11/20/17 11/20/17 18:59 06:59 18:59 Intake Total 450 Output Total 5 Balance -5 450 Intake: Oral 450 Output: Emesis 5 Other: # Voids 2 0 2 # Bowel Movements 0 1 # Emeses 0 - Exam General: Ill appearing, no distress, appears at stated age Derm: warm, dry Head: atraumatic, normocephalic, symmetric Eyes: EOMI, no lid lag, anicteric sclera Mouth: no lip lesion, mucus membranes moist Cardiovascular: S1-S2 regular, no murmur, positive posterior tibial pulse bilateral, Lungs: faint wheezes bilateral, no accessory muscle use Abdominal: soft, nontender to palpation, no guarding, no appreciable organomegaly Ext: no gross muscle atrophy, no edema, no contractures Neuro: CN II-XI grossly intact, no focal neuro deficits Psych: Alert, oriented, depressed and tearful - Labs CBC & Chem 7: 11/20/17 07:53 11/20/17 07:53 Labs: Abnormal Lab Results - Last 24 Hours (Table) 11/19/17 11/20/17 11/20/17 Range/Units 20:08 07:15 07:53 BUN 26 H (9-20) mg/dL Glucose 195 H (74-99) mg/dL POC Glucose (mg/dL) 149 H 165 H (75-99) mg/dL 11/20/17 11/20/17 Range/Units 11:58 16:49 BUN (9-20) mg/dL Glucose (74-99) mg/dL POC Glucose (mg/dL) 158 H 161 H (75-99) mg/dL Microbiology - Last 24 Hours (Table) 11/18/17 15:33 Blood Culture - Preliminary Blood No Growth after 48 hours Assessment and Plan Assessment: Acute exacerbation of COPD -Bronchodilators -Steroids to PO -Zithromax -Pulmonary hygiene -Expectorant -morning BS slightly elevated start SSI Acute viral illness - supportive care -UA and repeat chest x-ray negative -Await blood cultures -Follow fever profile Chronic hypoxic respiratory failure -Continue with O2 supplementation -At home typically wears only at night -Follows with Dr. Pepe Hypertension, controlled -Continue home medications with Imdur, Lasix, diltiazem -Follow blood pressures BPH -Continue with Flomax GERD -Continue with PPI Chronic pain: -Has morphine pain pump -Continue with as needed [place] and gabapentin Chronic medical conditions: Dementia Hypothyroidism Carpal tunnel Rheumatoid arthritis Restless leg syndrome Thrombocytopenia Likely home in AM if afebrile. DVT prophylaxis: Lovenox Discussed with: Patient, Nursing Anticipated discharge date: 11/[address]: Home A total of 35 minutes was spent on the care of this complex patient more than 50 % of the time was spent in counseling and care coordination.
[2017-11-20 20:27] LABS: Glucose,Whole Blood 184 mg/dL (75-99)
[2017-11-20] MEDS: DONEPEZIL 10 MG TAB PO SCH (21:06)
[2017-11-20] MEDS: TAMSULOSIN 0.4 MG CAP.ER.24H PO SCH (21:06)
[2017-11-20] MEDS: DOXEPIN 25 MG CAP PO SCH (21:07)
[2017-11-20] MEDS: LORazepam 0.5 MG TAB PO PRN (22:00)
[2017-11-21] MEDS: HYDROcodone/APAP 10-325MG 1 EACH TAB PO PRN (06:36)
[2017-11-21] MEDS: LEVOTHYROXINE 100 MCG TAB PO SCH (06:38)
[2017-11-21] MEDS: LEVOTHYROXINE 75 MCG TAB PO SCH (06:38)
[2017-11-21] MEDS: IPRATROPIUM-ALBUTEROL 3 ML NEB INHALATION SCH ×3 (07:35→15:12)
[2017-11-21 07:47] VITALS: BP 119/74; RESP 16; TEMP 98.1
[2017-11-21 07:50] LABS: Glucose,Whole Blood 158 mg/dL (75-99)
[2017-11-21] MEDS ORDERED: predniSONE 20 MG TAB PO SCH (09:00)
[2017-11-21] MEDS: SENNOSIDES 8.6 MG TAB PO SCH (09:14)
[2017-11-21] MEDS: GABAPENTIN 400 MG CAP PO SCH (09:14)
[2017-11-21] MEDS: ENOXAPARIN 40 MG/0.4 ML SYRINGE SQ SCH (09:15)
[2017-11-21] MEDS: ATORVASTATIN 20 MG TAB PO SCH (09:15)
[2017-11-21] MEDS: ISOSORBIDE MONONITRATE ER 60 MG TAB.ER.24H PO SCH (09:15)
[2017-11-21] MEDS: FLUTICASONE 50MCG/SPRAY NASAL 16GM EA NOSTRIL SCH (09:15)
[2017-11-21] MEDS: DILTIAZEM CD 120 MG CAP.ER.24H PO SCH (09:15)
[2017-11-21] MEDS: guaiFENesin 600 MG TABLET.ER PO SCH (09:15)
[2017-11-21] MEDS: FAMOTIDINE 20 MG TAB PO SCH (09:15)
[2017-11-21] MEDS: FUROSEMIDE 20 MG TAB PO SCH (09:15)
[2017-11-21] MEDS: INSULIN ASPART 100 UNIT/ML 1 ML 10 ML VIAL SQ SCH ×2 (09:16→13:48)
[2017-11-21 13:19] LABS: Glucose,Whole Blood 179 mg/dL (75-99)
[2017-11-21 15:38] VITALS: PULSE 83
--- NOTE | 2017-11-21 16:09 | P.DS ---
Providers Date of admission: 11/18/17 18:10 Attending physician: Alicia Cartagena DO Primary care physician: Noble Elkins - Discharge Diagnosis(es) (1) Acute exacerbation of chronic obstructive airways disease Patient was admitted with steroid burst, antibiotics, neb treatments and supplemental oxygen With the above-mentioned treatment his condition improved. He continued to have some fever while in the hospital chest x-ray was repeated and negative for any infiltrates. He was treated with antibiotics and subsequently his fevers resolved.. More than 30 minutes was spent in this discharge process and will including face -to-face and coordination of care Status: Acute Priority: High Hospital Course: This is a 82-year-old patient with history of COPD, chronic hypoxic respiratory failure with home O2 usage, hypertension who came to emergency department complaining of shortness of breath cough and expectoration. He developed URI symptoms. He was very wheezy and short of breath. He also spiked fever during this hospital stay. On the day of discharge I saw and evaluated the patient. He has been afebrile for more than 24 hours. Shortness of breath has resolved and he was able to ambulate in the [place] without any shortness of breath. REVIEW OF SYSTEMS: CONSTITUTIONAL: No fever or chills HEENT: No changes in vision or voice CARDIOVASCULAR: no chest pain or abnormal heart beats, or any swelling in ankles or feet. RESPIRATORY: No wheezing or coughing. GASTROINTESTINAL: No abdominal pain, no nausea no vomiting no constipation or diarrhea GENITOURINARY: no any urinary urgency, frequency or burning, and there has been no blood in her urine. no flank pain. MUSCULOSKELETAL: She notes full range of motion of all her joints without pain or swelling. NEUROLOGICAL: , no headache. no vision changes, or fainting. No numbness or tingling. General: No distress. Oriented x 3, normal mood and affect . Ambulating without difficulty. HEENT: Head: Normocephalic, atraumatic, no visible or palpable masses, depressions, or scaring, conjunctiva clear, sclera non-icteric, EOM intact, PERRL Oral: Mucous membranes moist, no mucosal lesions. Pharynx: Mucosa non-inflamed, no tonsillar hypertrophy or exudate Neck: Supple, without lesions, bruits, or adenopathy, thyroid non-enlarged and non-tender Heart: No cardiomegaly or thrills; regular rate and rhythm, no murmur or gallop Lungs: Immediate breath sounds but no wheezing rhonchi or crackles Abdomen: Bowel sounds normal, no tenderness, organomegaly, masses, or hernia Back: Spine normal without deformity or tenderness, no CVA tenderness Extremities: Trace pedal edema bilaterally no warmth or erythema or tenderness Musculoskeletal: No peripheral joint swelling, pain, erythema. No clubbing Skin: Good turgor, no rash, unusual bruising or prominent lesions Neurologic: CN 2-12 normal. Sensation to pain, touch, and proprioception normal. DTRs normal in upper and lower extremities. No pathologic reflexes. Psychiatric: Oriented X3, intact recent and remote memory, judgment and insight , normal mood and affect. Decision was made to proceed with discharge patient home to finish course of steroids and antibiotics. I reviewed his home medications as well in detail. Apparently patient is taking several control substance was sedating effects including Neurontin, [place], abdomen. He was not provided new prescriptions and dosing all his home medications are change so he would take last dose and with less frequency of his medications. He is instructed to further follow-up with his primary care doctor with this. Patient Condition at Discharge: Fair Plan - Discharge Summary Discharge Rx Participant: No New Discharge Prescriptions: New Doxycycline Hyclate 100 mg PO BID 2 Days #4 tab Gabapentin [Neurontin] 800 mg PO TID cap predniSONE 40 mg PO DAILY 5 Days #5 tab Continue rOPINIRole HCL [Requip] 0.5 mg PO TID Omeprazole 40 mg PO HS Levothyroxine Sodium [Synthroid] 175 mcg PO DAILY Isosorbide Mononitrate ER [Imdur] 60 mg PO DAILY Donepezil [Aricept] 10 mg PO HS Atorvastatin [Lipitor] 20 mg PO DAILY Tamsulosin HCl [Flomax] 0.4 - 0.8 mg PO HS Sennosides [Senokot] 17.2 mg PO BID Morphine Pain Pump 1 dose INTRATHECA CONTINUOUS Multivitamin [Multivitamins Adult Gummies] 1 tab PO DAILY Nitroglycerin Sl Tabs [Nitrostat] 0.4 mg SUBLINGUAL Q5M PRN PRN Reason: Chest Pain Budesonide-Formot 160-4.5 Mcg [Symbicort 160-4.5 Mcg Inhaler] 2 puff INHALATION RT-BID #1 puff Ranitidine HCl 300 mg PO HS Potassium Chloride ER [K-Dur 10] 10 meq PO DAILY Ipratropium-Albuterol Nebulize [Duoneb 0.5 mg-3 mg/3 ml Soln] 3 ml INHALATION RT-QID PRN PRN Reason: Shortness Of Breath Furosemide [Lasix] 20 mg PO DAILY Fluticasone Nasal [place] [Flonase Nasal [place]] 1 spray EA NOSTRIL DAILY Doxepin HCl [SINEquan] 50 mg PO HS Diltiazem HCl [Cartia Xt] 120 mg PO DAILY Albuterol Nebulized [Ventolin Nebulized] 2.5 mg INHALATION RT-TID PRN PRN Reason: Shortness Of Breath Changed Hydrocodone/Acetaminophen [[place] 10-325] 1 tab PO TID #0 LORazepam [Ativan] 0.5 mg PO BID #0 Discontinued Gabapentin 800 mg PO QID Discharge Medication List Atorvastatin [Lipitor] 20 mg PO DAILY 06/30/16 [History] Donepezil [Aricept] 10 mg PO HS 06/30/16 [History] Isosorbide Mononitrate ER [Imdur] 60 mg PO DAILY 06/30/16 [History] Levothyroxine Sodium [Synthroid] 175 mcg PO DAILY 06/30/16 [History] Omeprazole 40 mg PO HS 06/30/16 [History] Tamsulosin HCl [Flomax] 0.4 - 0.8 mg PO HS 06/30/16 [History] rOPINIRole HCL [Requip] 0.5 mg PO TID 06/30/16 [History] Morphine Pain Pump 1 dose INTRATHECA CONTINUOUS 12/20/16 [History] Sennosides [Senokot] 17.2 mg PO BID 12/20/16 [History] Multivitamin [Multivitamins Adult Gummies] 1 tab PO DAILY 04/24/17 [History] Nitroglycerin Sl Tabs [Nitrostat] 0.4 mg SUBLINGUAL Q5M PRN 06/11/17 [History] Budesonide-Formot 160-4.5 Mcg [Symbicort 160-4.5 Mcg Inhaler] 2 puff INHALATION RT-BID #1 puff 06/16/17 [Rx] Albuterol Nebulized [Ventolin Nebulized] 2.5 mg INHALATION RT-TID PRN 11/18/17 [ History] Diltiazem HCl [Cartia Xt] 120 mg PO DAILY 11/18/17 [History] Doxepin HCl [SINEquan] 50 mg PO HS 11/18/17 [History] Fluticasone Nasal [place] [Flonase Nasal [place]] 1 spray EA NOSTRIL DAILY 11/18/17 [History] Furosemide [Lasix] 20 mg PO DAILY 11/18/17 [History] Ipratropium-Albuterol Nebulize [Duoneb 0.5 mg-3 mg/3 ml Soln] 3 ml INHALATION RT -QID PRN 11/18/17 [History] Potassium Chloride ER [K-Dur 10] 10 meq PO DAILY 11/18/17 [History] Ranitidine HCl 300 mg PO HS 11/18/17 [History] Doxycycline Hyclate 100 mg PO BID 2 Days #4 tab 11/21/17 [Rx] Gabapentin [Neurontin] 800 mg PO TID cap 11/21/17 [Rx] Hydrocodone/Acetaminophen [[place] 10-325] 1 tab PO TID #0 11/21/17 [Rx] LORazepam [Ativan] 0.5 mg PO BID #0 11/21/17 [Rx] predniSONE 40 mg PO DAILY 5 Days #5 tab 11/21/17 [Rx] Follow up Appointment(s)/Referral(s): Noble Elkins MD [Primary Care Provider] - 11/24/17 10:30 am Patient Instructions/Handouts: Pneumonitis (DC), COPD (Chronic Obstructive Pulmonary Disease) (DC) Activity/Diet/Wound Care/Special Instructions: Preadmission diet Activity as tolerated Follow-up with PCP Discharge Disposition: HOME SELF-CARE
== END 2017-11-21 15:56 | disposition home or self-care (01) | DRG 191 ==
LOC: EC 15:07 → 4MS4W 18:10
PROVIDERS: ADMIT Internal Medicine; ATTEND Internal Medicine
DX: J44.1 Chronic obstructive pulmonary disease with (acute) exacerbation (principal); J96.11 Chronic respiratory failure with hypoxia; B34.9 Viral infection, unspecified; D69.6 Thrombocytopenia, unspecified; E03.9 Hypothyroidism, unspecified; E78.5 Hyperlipidemia, unspecified; F03.90 Unspecified dementia, unspecified severity, without behavioral disturbance, psychotic disturbance, mood disturbance, and anxiety; G25.81 Restless legs syndrome; G89.29 Other chronic pain; Z98.42 Cataract extraction status, left eye; Z96.1 Presence of intraocular lens; I10 Essential (primary) hypertension; K21.9 Gastro-esophageal reflux disease without esophagitis; M06.9 Rheumatoid arthritis, unspecified; N40.0 Benign prostatic hyperplasia without lower urinary tract symptoms; Z79.51 Long term (current) use of inhaled steroids; Z79.52 Long term (current) use of systemic steroids; Z79.899 Other long term (current) drug therapy; Z80.1 Family history of malignant neoplasm of trachea, bronchus and lung; Z82.49 Family history of ischemic heart disease and other diseases of the circulatory system; Z87.01 Personal history of pneumonia (recurrent); Z87.891 Personal history of nicotine dependence; Z99.81 Dependence on supplemental oxygen; Z79.891 Long term (current) use of opiate analgesic; Z88.0 Allergy status to penicillin; Z91.041 Radiographic dye allergy status
CPT/HCPCS: 36415; 71045; 71046; 80048; 80053; 81001; 82550; 82553; 83605; 83735; 83880; 84484; 85025; 85027; 85610; 85730; 87040; 93005; 94640; 94760; 96365; 96366; 96375; 99285

== ENCOUNTER 2018-01-05 19:40 | Inpatient (IN) | payer MEDICARE, BC ==
[2018-01-05] MEDS ORDERED: SODIUM CHLORIDE 0.9% 1,000 ML IV STA (19:47)
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
--- NOTE | 2018-01-05 20:26 | XR ---
EXAMINATION TYPE: XR chest 2V DATE OF EXAM: 01/05/2018 COMPARISON: 11/19/2017 HISTORY: Chest pain TECHNIQUE: Frontal and lateral views of the chest are obtained. FINDINGS: There is some linear patchy density at the lung bases. There is no heart failure. Thoracic aorta is atheromatous. There is no pleural effusion. Bony thorax is intact. IMPRESSION: There is new atelectasis at the lung bases compared to last exam. No heart failure seen.
[2018-01-05] MEDS ORDERED: IPRATROPIUM-ALBUTEROL 3 ML NEB INHALATION STA (20:33)
[2018-01-05] MEDS ORDERED: methylPREDNISolone SOD SUCCI 125 MG/2 ML VIAL IV STA (20:33)
[2018-01-05 21:06] LABS: Basophils % (A) 1 %; Eosinophils # (A) 0.7 k/uL (0-0.7); Eosinophils % (A) 10 %; HCT 36.2 % (39.0-53.0); HGB 11.7 gm/dL (13.0-17.5); Lymphocytes # (A) 2.1 k/uL (1.0-4.8); Lymphocytes % (A) 32 %; MCH 31.7 pg (25.0-35.0); MCHC 32.4 g/dL (31.0-37.0); MCV 97.9 fL (80.0-100.0); Mean Platelet Volume 7.1; Monocytes # (A) 0.4 k/uL (0-1.0); Monocytes % (A) 6 %; Neutrophils # (A) 3.3 k/uL (1.3-7.7); Neutrophils % (A) 50 %; Platelet Count 165 k/uL (150-450); RDW 14.2 % (11.5-15.5); WBC 6.6 k/uL (3.8-10.6)
[2018-01-05 21:17] LABS: Albumin 3.4 g/dL (3.5-5.0); Calcium 8.9 mg/dL (8.4-10.2); Total Bilirubin 0.5 mg/dL (0.2-1.3); Total Protein 6.2 g/dL (6.3-8.2)
[2018-01-05 21:20] LABS: Creatine Kinase 325 U/L (55-170)
[2018-01-05 21:23] LABS: Partial Thromboplastin Time 28.1 sec (22.0-30.0); Prothrombin Time 9.6 sec (9.0-12.0)
[2018-01-05 21:33] LABS: Creatine Kinase MB 2.5 ng/mL (0.0-2.4); Troponin I <0.012 ng/mL (0.000-0.034)
[2018-01-05 21:35] LABS: Potassium 4.2 mmol/L (3.5-5.1)
[2018-01-05 21:57] LABS: D-Dimer 0.96 mg/L FEU (<0.60)
[2018-01-05] MEDS ORDERED: diphenhydrAMINE 50 MG/ML 1 ML VIAL IVP STA (22:39)
[2018-01-05] MEDS ORDERED: FAMOTIDINE 20 MG/2 ML VIAL IV STA (22:39)
--- NOTE | 2018-01-05 23:32 | CT ---
EXAMINATION TYPE: CT angio chest DATE OF EXAM: 01/05/2018 11:09 PM COMPARISON: 04/24/2017 HISTORY: PE CT DLP: 414.7 mGycm Automated exposure control for dose reduction was used. CONTRAST: CTA scan of the thorax is performed with IV Contrast, patient injected with 100 mL of Isovue 370, pul monary embolism protocol. There are 3-D post processed images.. FINDINGS: There is subsegmental atelectasis at the lung bases. There is no pleural effusion. There is no perica rdial effusion. There is normal contrast opacification of the pulmonary arteries. I see no filling de fects. There is no mediastinal adenopathy. There is 2 x 1.4 cm pretracheal lymph node. There are righ t bronchial lymph nodes that measure up to 1 cm. There is no evidence of thoracic aortic aneurysm or dissection. There is spurring in the thoracic spine. IMPRESSION: NO EVIDENCE OF PULMONARY EMBOLISM. PATCHY ATELECTASIS AT THE LUNG BASES. NONSPECIFIC MEDIASTINAL AND BRONCHIAL LYMPH NODES. There is increased atelectasis at the lung bases compared to old exam.
[2018-01-06] MEDS: SODIUM CHLORIDE 0.9% 1,000 ML IV SCH ×2 (00:11→08:44)
[2018-01-06] MEDS: methylPREDNISolone SOD SUCCI 125 MG/2 ML VIAL IV SCH ×3 (00:29→11:28)
[2018-01-06] MEDS: IPRATROPIUM-ALBUTEROL 3 ML NEB INHALATION SCH ×5 (07:29→20:44)
[2018-01-06] MEDS: ENOXAPARIN 40 MG/0.4 ML SYRINGE SQ SCH (08:43)
[2018-01-06] MEDS ORDERED: NITROGLYCERIN SL TABS 0.4 MG TAB SUBLINGUAL PRN (10:18)
[2018-01-06] MEDS: FUROSEMIDE 20 MG TAB PO SCH (11:25)
[2018-01-06] MEDS: GABAPENTIN 400 MG CAP PO SCH ×3 (11:25→21:48)
[2018-01-06] MEDS: guaiFENesin 600 MG TABLET.ER PO SCH ×2 (11:25→21:48)
[2018-01-06] MEDS: LEVOTHYROXINE 88 MCG TAB PO SCH (11:25)
[2018-01-06] MEDS: POTASSIUM CHLORIDE ER 10 MEQ TAB.ER.PRT PO SCH (11:26)
[2018-01-06] MEDS: MELOXICAM 7.5 MG TAB PO SCH (11:26)
[2018-01-06] MEDS: MULTIVITAMINS, THERA 1 EACH TAB PO SCH (11:27)
[2018-01-06] MEDS: ISOSORBIDE MONONITRATE ER 60 MG TAB.ER.24H PO SCH (11:27)
[2018-01-06] MEDS: DILTIAZEM CD 120 MG CAP.ER.24H PO SCH (11:27)
[2018-01-06] MEDS: FLUTICASONE 50MCG/SPRAY NASAL 16GM EA NOSTRIL SCH (11:28)
[2018-01-06] MEDS: LORazepam 0.5 MG TAB PO SCH ×3 (11:36→21:53)
[2018-01-06] MEDS: INSULIN ASPART 100 UNIT/ML 1 ML 10 ML VIAL SQ SCH ×3 (12:23→21:53)
[2018-01-06 12:46] LABS: Glucose,Whole Blood 189 mg/dL (75-99)
[2018-01-06] MEDS: ACETAMINOPHEN TAB 325 MG TAB PO PRN (15:54)
--- NOTE | 2018-01-06 16:19 | P.GSCN ---
History of Present Illness Consult date: 01/06/18 History of present illness: The patient was admitted the hospital yesterday for exacerbation of his COPD. While in the hospital he notified of significant difficulty with his foreskin. He never was circumcised. He states the opening is closing down significantly that is making more difficult to urinate. He has not had balanitis. He is not sexually active. Review of Systems - Respiratory Reports as per HPI - Genitourinary Reports as per HPI Past Medical History Past Medical History: Asthma, COPD, GERD/Reflux, Hyperlipidemia, Hypertension, Pneumonia, Prostate Disorder, Rheumatoid Arthritis (RA), Thyroid Disorder Additional Past Medical History / Comment(s): chronic hypoxic respiratory failure-uses 2 L at night, chronic back pain-has pain pump, cataract left eye, right eye injury with vision loss for about 40 yrs then had lens implant and can see fairly well with that eye, past shingles with occasional nerve flare ups , chronic sinus disease, migraines, diverticulosis, restless leg syndrome, BPH. rt carpal tunnel History of Any Multi-Drug Resistant Organisms: None Reported Past Surgical History: Orthopedic Surgery Additional Past Surgical History / Comment(s): rt eye lens implant, colonoscopy/ polypectomy(benign), R foot toe surgery, L foot surgery, repair of lt index finger partial amp d/t axe accident, juan rotator cuff repair, pain pump insertion, recent EGD Past Anesthesia/Blood Transfusion Reactions: No Reported Reaction Past Psychological History: Anxiety Additional Psychological History / Comment(s): pt has his own home but most of the time he stays at his [facility],uses a cane/walker and has home 02 2 liters at , nebulizer. Smoking Status: Former smoker Past Alcohol Use History: None Reported Additional Past Alcohol Use History / Comment(s): started smoking in 1951 less than 1 ppd and quit 1962 Past Drug Use History: None Reported - Past Family History Father Additional Family Medical History / Comment(s): in his 60's from tb and cirrhosis of the liver, was heavy smoker/drinker. Mother Family Medical History: Cancer Additional Family Medical History / Comment(s): tb, "heart problems". Pt thinks mother of a ID in her 60's Brother(s) Family Medical History: Cancer Additional Family Medical History / Comment(s): lung cancer Medications and Allergies Home Medications Medication Instructions Recorded Confirmed Type Atorvastatin [Lipitor] 20 mg PO HS 06/30/16 01/05/18 History Donepezil [Aricept] 10 mg PO HS 06/30/16 01/05/18 History Isosorbide Mononitrate ER [Imdur] 60 mg PO DAILY 06/30/16 01/05/18 History Levothyroxine Sodium [Synthroid] 175 mcg PO DAILY 06/30/16 01/05/18 History Omeprazole 40 mg PO HS 06/30/16 01/05/18 History Tamsulosin HCl [Flomax] 0.4 - 0.8 mg PO HS 06/30/16 01/05/18 History rOPINIRole HCL [Requip] 0.5 mg PO TID 06/30/16 01/05/18 History Morphine Pain Pump 1 dose INTRATHECA CONTINUOUS 12/20/16 01/05/18 History Sennosides [Senokot] 17.2 mg PO HS 12/20/16 01/05/18 History Multivitamin [Multivitamins Adult 1 tab PO DAILY 04/24/17 01/05/18 History Gummies] Nitroglycerin Sl Tabs [Nitrostat] 0.4 mg SUBLINGUAL Q5M PRN 06/11/17 01/05/18 History Budesonide-Formot 160-4.5 Mcg 2 puff INHALATION RT-BID #1 puff 06/16/17 Rx [Symbicort 160-4.5 Mcg Inhaler] Albuterol Nebulized [Ventolin 2.5 mg INHALATION RT-TID PRN 11/18/17 01/05/18 History Nebulized] Diltiazem HCl [Cartia Xt] 120 mg PO DAILY 11/18/17 01/05/18 History Doxepin HCl [SINEquan] 50 mg PO HS 11/18/17 01/05/18 History Fluticasone Nasal [place] [Flonase 1 spray EA NOSTRIL DAILY 11/18/17 01/05/18 History Nasal [place]] Furosemide [Lasix] 20 mg PO DAILY 11/18/17 01/05/18 History Ipratropium-Albuterol Nebulize 3 ml INHALATION RT-QID PRN 11/18/17 01/05/18 History [Duoneb 0.5 mg-3 mg/3 ml Soln] Potassium Chloride ER [K-Dur 10] 10 meq PO DAILY 11/18/17 01/05/18 History Gabapentin [Neurontin] 800 mg PO TID cap 11/21/17 01/05/18 Rx Fluticasone/Vilanterol [Breo 1 puff INHALATION RT-DAILY 01/05/18 01/05/18 History Ellipta 100-25 Mcg Inhaler] LORazepam [Ativan] 0.5 mg PO TID 01/05/18 01/05/18 History Meloxicam [Mobic] 15 mg PO DAILY 01/05/18 01/05/18 History diphenhydrAMINE [Benadryl] 25 mg PO HS 01/05/18 01/05/18 History guaiFENesin [Mucinex] 1,200 mg PO BID 01/05/18 01/05/18 History Allergies Allergy/AdvReac Type Severity Reaction Status Date / Time Iodinated Contrast- Oral and Allergy Dyspnea Verified 01/05/18 19:59 IV Dye Penicillins Allergy Rash/Hives Verified 01/05/18 19:59 Surgical - Exam Vital Signs Temp Pulse Resp BP Pulse Ox 98.1 F 87 24 108/68 96 01/05/18 19:44 01/05/18 19:44 01/05/18 19:44 01/05/18 19:44 01/05/18 19:44 - General well developed, well nourished, no distress - Eyes PERRL - ENT no hearing loss - Neck trachea midline - Respiratory The patient is on oxygen. His breathing is somewhat labored. - Cardiovascular Rhythm: regular - Abdomen Obese Abdomen: soft, tender - Genitourinary Uncircumcised phallus, significant phimosis. testicles present - Neurologic normal coordination, normal sensation - Musculoskeletal normal posture - Psychiatric oriented to time, oriented to person, oriented to place, speech is normal, memory intact Results - Labs 01/05/18 19:59 01/05/18 19:59 Abnormal Lab Results - Last 24 Hours (Table) 01/05/18 01/05/18 01/05/18 Range/Units 19:59 19:59 19:59 RBC 3.70 L (4.30-5.90) m/uL Hgb 11.7 L (13.0-17.5) gm/dL Hct 36.2 L (39.0-53.0) % D-Dimer (<0.60) mg/L FEU Carbon Dioxide 32 H (22-30) mmol/L Glucose 106 H (74-99) mg/dL POC Glucose (mg/dL) (75-99) mg/dL ALT 16 L (21-72) U/L Total Creatine Kinase 325 H (55-170) U/L CK-MB (CK-2) 2.5 H (0.0-2.4) ng/mL Total Protein 6.2 L (6.3-8.2) g/dL Albumin 3.4 L (3.5-5.0) g/dL 01/05/18 01/06/18 Range/Units 19:59 12:15 RBC (4.30-5.90) m/uL Hgb (13.0-17.5) gm/dL Hct (39.0-53.0) % D-Dimer 0.96 H (<0.60) mg/L FEU Carbon Dioxide (22-30) mmol/L Glucose (74-99) mg/dL POC Glucose (mg/dL) 189 H (75-99) mg/dL ALT (21-72) U/L Total Creatine Kinase (55-170) U/L CK-MB (CK-2) (0.0-2.4) ng/mL Total Protein (6.3-8.2) g/dL Albumin (3.5-5.0) g/dL Diabetes panel 01/05/18 Range/Units 19:59 Sodium 142 (137-145) mmol/L Potassium 4.2 (3.5-5.1) mmol/L Chloride 103 (98-107) mmol/L Carbon Dioxide 32 H (22-30) mmol/L BUN 12 (9-20) mg/dL Creatinine 1.13 (0.66-1.25) mg/dL Glucose 106 H (74-99) mg/dL Calcium 8.9 (8.4-10.2) mg/dL AST 32 (17-59) U/L ALT 16 L (21-72) U/L Alkaline Phosphatase 70 (38-126) U/L Total Protein 6.2 L (6.3-8.2) g/dL Albumin 3.4 L (3.5-5.0) g/dL Calcium panel 01/05/18 Range/Units 19:59 Calcium 8.9 (8.4-10.2) mg/dL Albumin 3.4 L (3.5-5.0) g/dL Pituitary panel 01/05/18 Range/Units 19:59 Sodium 142 (137-145) mmol/L Potassium 4.2 (3.5-5.1) mmol/L Chloride 103 (98-107) mmol/L Carbon Dioxide 32 H (22-30) mmol/L BUN 12 (9-20) mg/dL Creatinine 1.13 (0.66-1.25) mg/dL Glucose 106 H (74-99) mg/dL Calcium 8.9 (8.4-10.2) mg/dL Adrenal panel 01/05/18 Range/Units 19:59 Sodium 142 (137-145) mmol/L Potassium 4.2 (3.5-5.1) mmol/L Chloride 103 (98-107) mmol/L Carbon Dioxide 32 H (22-30) mmol/L BUN 12 (9-20) mg/dL Creatinine 1.13 (0.66-1.25) mg/dL Glucose 106 H (74-99) mg/dL Calcium 8.9 (8.4-10.2) mg/dL Total Bilirubin 0.5 (0.2-1.3) mg/dL AST 32 (17-59) U/L ALT 16 L (21-72) U/L Alkaline Phosphatase 70 (38-126) U/L Total Protein 6.2 L (6.3-8.2) g/dL Albumin 3.4 L (3.5-5.0) g/dL Assessment and Plan Assessment: Impression: Phimosis, tight. COPD. Multiple medical problems Recommendations: After the patient has recuperated from his COPD and pneumonia the patient needs a circumcision. Appointment should be made to see me as an outpatient in the office.
[2018-01-06 17:17] LABS: Glucose,Whole Blood 131 mg/dL (75-99)
[2018-01-06] MEDS: methylPREDNISolone SOD SUCCI 40 MG/ML 1 ML VIAL IV SCH (18:04)
--- NOTE | 2018-01-06 18:06 | HP ---
HISTORY AND PHYSICAL DATE OF ADMISSION: 01/06/2018. DATE OF SERVICE: 01/06/2018. PRESENTING COMPLAINT: Shortness of breath, cough. HISTORY OF PRESENTING COMPLAINT: This is an 82-year-old patient whose family doctor is Dr. Elkins out of [place] and Dr. Diaz is a racing mechanic. The patient's chronic stable medical conditions include GERD, hypertension, BPH, rheumatoid arthritis, on home oxygen 2 L, diverticulosis, restless legs syndrome, Alzheimer's dementia, and intrathecal pain pump being followed by Dr. Hilliard. The patient presents for 5 days of increasing short of breath, cough, some sputum yellow-green color. Has felt a bit hot, but no obvious fevers, bouts of perspiration no obvious chills. Appetite had gone down wheezing quite a bit, presented to the ER, started on bronchodilator dilators with slight response, being admitted for the same. REVIEW OF SYSTEMS: CONSTITUTIONAL: Tired. HEENT: Decreased hearing. RESPIRATORY: As above. CARDIOVASCULAR: None. GASTROINTESTINAL: Occasional heartburn. GENITOURINARY: His prepuce does swell up. MUSCULOSKELETAL: Pain in multiple joints. DERMATOLOGICAL: None. HEMATOLOGIC: None. PSYCHIATRY: Forgetful, anxious. NEUROLOGICAL: Jumpy legs. PAST MEDICAL HISTORY: COPD, GERD, hyperlipidemia, hypertension, prostate disorder, rheumatoid arthritis, chronic hypoxic respiratory failure on 2 L of oxygen at home, chronic low back pain with a pain pump, cataract left eye, right eye injury with vision loss, shingles, chronic sinus disease, migraines, diverticulosis, restless legs syndrome, BPH, right carpal tunnel. PAST SURGICAL HISTORY: Right eye lens transplant, right foot toe surgery, left foot surgery, repair of left index finger, partial amputation, bilateral rotator cuff repair, pain pump insertion Dr. Hilliard. PSYCH HISTORY: Anxiety. SOCIAL HISTORY: Often times lives at his daughter's house. Uses a cane and a walker and home oxygen. The patient smoked for about 11 years stopped in 1962. No alcohol. FAMILY HISTORY: Cirrhosis of the liver from alcohol. HOME MEDICATIONS: 1. Requip 4.5 p.o. t.i.d. 2. Mucinex 1200 mg p.o. b.i.d. 3. Benadryl 25 mg q.h.s. 4. Flomax 0.4/2.8 mg p.o. q.h.s. 5. Senokot 17.2 mg p.o. q.h.s. 6. Potassium 10 mEq p.o. daily. 7. Omeprazole 40 mg q.h.s. 8. Nitrostat 0.4 sublingual q.5 p.r.n. 9. Multivitamin 1 tablet p.o. daily. 10.Morphine pain pump. 11.Mobic 50 mg p.o. daily. 12.Synthroid 175 mcg a day. 13.Ativan 0.5 mg p.o. t.i.d. 14.Imdur ER 60 mg p.o. daily. 15.DuoNeb 3 mL q.i.d. p.r.n. 16.Neurontin 800 mg p.o. t.i.d. 17.Lasix 20 mg a day. 18.Breo Ellipta 100/25 1 puff daily. 19.Flonase 1 spray each nostril daily. 20.Sinequan 50 mg q.h.s. 21.Aricept 10 mg q.h.s. 22.Cardia XT 120 mg p.o. daily. 23.Symbicort 160/4.5, 2 puffs b.i.d. 24.Lipitor 20 mg q.h.s. 25.Ventolin 2.5 t.i.d. p.r.n. ALLERGIES: IV CONTRAST AND PENICILLIN. PHYSICAL EXAMINATION: Vital signs on presentation: Temp 98.1, pulse 87, respiration 24, blood pressure 100/68, pulse ox 96% on 4 L. GENERAL APPEARANCE: Well built, BMI 35.2, lying in bed, short of breath at rest. EYES: Pupils equal. Conjunctivae normal. HEENT: External appearance of nose and ears normal. Oral cavity normal. Decreased hearing. NECK: JVD unable to assess. Mass not palpable. RESPIRATORY: Effort increased. Lungs decreased breath sounds. Prolonged expiration. Unable to speak in full sentences. Accessory muscles are working. CARDIOVASCULAR: First and second sounds normal. No edema. ABDOMEN: Distended, soft. Liver and spleen not palpable. LYMPHATIC: No lymph nodes palpable in neck or axillae. PSYCHIATRY: Alert and oriented x3. Mood and affect anxious-appearing. NEUROLOGICAL: Pupils equal. Cranial nerves grossly intact. Power and sensation grossly intact. INVESTIGATIONS: White count 6.6, hemoglobin 11.7, platelets 165. Potassium 4.2, BUN and creatinine are normal. Chest CTA negative for PE. EKG tracing personally reviewed by me shows normal sinus rhythm. Chest x-ray film personally reviewed by me shows slight cardiomegaly, prominent pulmonary artery, some atelectasis bands. ASSESSMENT: 1. Acute severe chronic obstructive pulmonary disease exacerbation in an ex-smoker with acute tracheobronchitis. 2. Gastroesophageal reflux disease. 3. Essential hypertension. 4. Hyperlipidemia. 5. Benign prostatic hypertrophy. 6. Chronic rheumatoid arthritis. 7. Hypothyroid. 8. Chronic hypoxic respiratory failure from underlying chronic obstructive pulmonary disease on home oxygen 2 L. 9. Colonic diverticulosis. 10.Mild cognitive impairment from late onset Alzheimer's dementia. 11.Restless legs syndrome. 12.Gait dysfunction at baseline uses a walker. 13.Chronic pain syndrome for which patient is intrathecal pain pump. PLAN: Patient is started on nebulized bronchodilators every 4 hours IV steroids. Home medications are reviewed. Lovenox for DVT prophylaxis. Care was discussed with the patient. Questions were answered. MMODL / IJN: [id number] /
[2018-01-06 20:31] LABS: Glucose,Whole Blood 177 mg/dL (75-99)
[2018-01-06] MEDS: SYMBICORT 160-4.5 MCG INHALER INHALATION SCH (20:44)
[2018-01-06] MEDS ORDERED: diphenhydrAMINE 25 MG CAP PO SCH (21:00)
[2018-01-06] MEDS: DOXEPIN 25 MG CAP PO SCH (21:47)
[2018-01-06] MEDS: TAMSULOSIN 0.4 MG CAP.ER.24H PO SCH (21:47)
[2018-01-06] MEDS: DONEPEZIL 10 MG TAB PO SCH (21:48)
[2018-01-06] MEDS: ATORVASTATIN 20 MG TAB PO SCH (21:48)
[2018-01-06] MEDS: PANTOPRAZOLE 40 MG TABLET PO SCH (21:48)
[2018-01-06] MEDS: SENNOSIDES 8.6 MG TAB PO SCH (21:48)
[2018-01-06 22:16] LABS: Hemoglobin A1C 6.4 % (4.0-6.0)
[2018-01-07] MEDS: methylPREDNISolone SOD SUCCI 40 MG/ML 1 ML VIAL IV SCH ×3 (00:26→16:08)
[2018-01-07] MEDS: IPRATROPIUM-ALBUTEROL 3 ML NEB INHALATION SCH ×6 (00:40→20:50)
[2018-01-07] MEDS: LEVOTHYROXINE 88 MCG TAB PO SCH (06:35)
[2018-01-07 06:58] LABS: Glucose,Whole Blood 161 mg/dL (75-99)
[2018-01-07] MEDS ORDERED: SYMBICORT 80-4.5 MCG INHALER INHALATION SCH (08:00)
[2018-01-07] MEDS: SYMBICORT 160-4.5 MCG INHALER INHALATION SCH ×2 (08:27→20:50)
[2018-01-07] MEDS: DILTIAZEM CD 120 MG CAP.ER.24H PO SCH (08:41)
[2018-01-07] MEDS: FUROSEMIDE 20 MG TAB PO SCH (08:41)
[2018-01-07] MEDS: ENOXAPARIN 40 MG/0.4 ML SYRINGE SQ SCH (08:41)
[2018-01-07] MEDS: MELOXICAM 7.5 MG TAB PO SCH (08:41)
[2018-01-07] MEDS: POTASSIUM CHLORIDE ER 10 MEQ TAB.ER.PRT PO SCH (08:41)
[2018-01-07] MEDS: GABAPENTIN 400 MG CAP PO SCH ×3 (08:41→22:11)
[2018-01-07] MEDS: guaiFENesin 600 MG TABLET.ER PO SCH ×2 (08:41→22:12)
[2018-01-07] MEDS: ISOSORBIDE MONONITRATE ER 60 MG TAB.ER.24H PO SCH (08:41)
[2018-01-07] MEDS: INSULIN ASPART 100 UNIT/ML 1 ML 10 ML VIAL SQ SCH ×4 (08:42→22:22)
[2018-01-07] MEDS: FLUTICASONE 50MCG/SPRAY NASAL 16GM EA NOSTRIL SCH (08:43)
[2018-01-07] MEDS: LORazepam 0.5 MG TAB PO SCH ×3 (08:43→22:22)
[2018-01-07 11:56] LABS: Glucose,Whole Blood 280 mg/dL (75-99)
[2018-01-07] MEDS: MULTIVITAMINS, THERA 1 EACH TAB PO SCH (12:50)
--- NOTE | 2018-01-07 13:39 | P.CNPUL ---
History of Present Illness Consult date: 01/07/18 Reason for consult: dyspnea, cough, COPD, hypoxemia Chief complaint: Shortness of breath, COPD exacerbation History of present illness: Pulmonary consult dated 01/07/2018 This is an 82-year-old male who presents to the emergency department on January 05 with increasing shortness of breath cough and chest congestion and phlegm production. In addition, the patient had significant wheezing. He apparently was brought in by EMS and given breathing treatments and Route but had no significant improvement. He apparently also complaining of mild chest discomfort. He has recent admission to the hospital for COPD exacerbations and pneumonia. Overall, the patient was feeling more weak and fatigue. He states he hasn't been feeling well for about 4 days prior to his admission in the emergency department on January 05. He has a history of hyperlipidemia dementia hypothyroidism GERD hypertension, pneumonia BPH rheumatoid arthritis chronic hypoxemic respiratory failure chronic back pain vision loss diverticular disease migraine cephalgia chronic sinus disease and restless leg syndrome. He was a heavy smoker in the past. The patient states he is not feeling much better today than yesterday. Still very short of breath without chest congestion and shortness of breath. Review of Systems A 14 point review of system is positive for shortness of breath chest congestion cough phlegm production wheezing chest tightness. He is complaints at the present for about 4 days prior to admission to the emergency department on January 05. Because he symptoms were progressive and more severe, the patient decided to be evaluated in the emergency department. Past Medical History Past Medical History: Asthma, COPD, GERD/Reflux, Hyperlipidemia, Hypertension, Pneumonia, Prostate Disorder, Rheumatoid Arthritis (RA), Thyroid Disorder Additional Past Medical History / Comment(s): chronic hypoxic respiratory failure-uses 2 L at night, chronic back pain-has pain pump, cataract left eye, right eye injury with vision loss for about 40 yrs then had lens implant and can see fairly well with that eye, past shingles with occasional nerve flare ups , chronic sinus disease, migraines, diverticulosis, restless leg syndrome, BPH. rt carpal tunnel History of Any Multi-Drug Resistant Organisms: None Reported Past Surgical History: Orthopedic Surgery Additional Past Surgical History / Comment(s): rt eye lens implant, colonoscopy/ polypectomy(benign), R foot toe surgery, L foot surgery, repair of lt index finger partial amp d/t axe accident, juan rotator cuff repair, pain pump insertion, recent EGD Past Anesthesia/Blood Transfusion Reactions: No Reported Reaction Past Psychological History: Anxiety Additional Psychological History / Comment(s): pt has his own home but most of the time he stays at his [facility],uses a cane/walker and has home 02 2 liters at , nebulizer. Smoking Status: Former smoker Past Alcohol Use History: None Reported Additional Past Alcohol Use History / Comment(s): started smoking in 1951 less than 1 ppd and quit 1962 Past Drug Use History: None Reported - Past Family History Father Additional Family Medical History / Comment(s): in his 60's from tb and cirrhosis of the liver, was heavy smoker/drinker. Mother Family Medical History: Cancer Additional Family Medical History / Comment(s): tb, "heart problems". Pt thinks mother of a CT in her 60's Brother(s) Family Medical History: Cancer Additional Family Medical History / Comment(s): lung cancer Medications and Allergies Home Medications Medication Instructions Recorded Confirmed Type Atorvastatin [Lipitor] 20 mg PO HS 06/30/16 01/05/18 History Donepezil [Aricept] 10 mg PO HS 06/30/16 01/05/18 History Isosorbide Mononitrate ER [Imdur] 60 mg PO DAILY 06/30/16 01/05/18 History Levothyroxine Sodium [Synthroid] 175 mcg PO DAILY 06/30/16 01/05/18 History Omeprazole 40 mg PO HS 06/30/16 01/05/18 History Tamsulosin HCl [Flomax] 0.4 - 0.8 mg PO HS 06/30/16 01/05/18 History rOPINIRole HCL [Requip] 0.5 mg PO TID 06/30/16 01/05/18 History Morphine Pain Pump 1 dose INTRATHECA CONTINUOUS 12/20/16 01/05/18 History Sennosides [Senokot] 17.2 mg PO HS 12/20/16 01/05/18 History Multivitamin [Multivitamins Adult 1 tab PO DAILY 04/24/17 01/05/18 History Gummies] Nitroglycerin Sl Tabs [Nitrostat] 0.4 mg SUBLINGUAL Q5M PRN 06/11/17 01/05/18 History Budesonide-Formot 160-4.5 Mcg 2 puff INHALATION RT-BID #1 puff 06/16/17 Rx [Symbicort 160-4.5 Mcg Inhaler] Albuterol Nebulized [Ventolin 2.5 mg INHALATION RT-TID PRN 11/18/17 01/05/18 History Nebulized] Diltiazem HCl [Cartia Xt] 120 mg PO DAILY 11/18/17 01/05/18 History Doxepin HCl [SINEquan] 50 mg PO HS 11/18/17 01/05/18 History Fluticasone Nasal [place] [Flonase 1 spray EA NOSTRIL DAILY 11/18/17 01/05/18 History Nasal [place]] Furosemide [Lasix] 20 mg PO DAILY 11/18/17 01/05/18 History Ipratropium-Albuterol Nebulize 3 ml INHALATION RT-QID PRN 11/18/17 01/05/18 History [Duoneb 0.5 mg-3 mg/3 ml Soln] Potassium Chloride ER [K-Dur 10] 10 meq PO DAILY 11/18/17 01/05/18 History Gabapentin [Neurontin] 800 mg PO TID cap 11/21/17 01/05/18 Rx Fluticasone/Vilanterol [Breo 1 puff INHALATION RT-DAILY 01/05/18 01/05/18 History Ellipta 100-25 Mcg Inhaler] LORazepam [Ativan] 0.5 mg PO TID 01/05/18 01/05/18 History Meloxicam [Mobic] 15 mg PO DAILY 01/05/18 01/05/18 History diphenhydrAMINE [Benadryl] 25 mg PO HS 01/05/18 01/05/18 History guaiFENesin [Mucinex] 1,200 mg PO BID 01/05/18 01/05/18 History Allergies Allergy/AdvReac Type Severity Reaction Status Date / Time Iodinated Contrast- Oral and Allergy Dyspnea Verified 01/05/18 19:59 IV Dye Penicillins Allergy Rash/Hives Verified 01/05/18 19:59 Physical Exam Osteopathic Statement: *. No significant issues noted on an osteopathic structural exam other than those noted in the History and Physical/Consult. Vitals: Vital Signs Temp Pulse Pulse Resp BP Pulse Ox 01/07/18 12:10 79 01/07/18 12:00 82 01/07/18 08:38 88 01/07/18 08:27 80 01/07/18 06:31 98.5 F 91 17 104/69 93 L 01/07/18 00:52 88 01/07/18 00:42 83 01/06/18 23:00 98.3 F 105 H 18 116/52 95 01/06/18 21:00 88 01/06/18 20:44 88 01/06/18 17:23 84 01/06/18 17:11 84 01/06/18 14:36 107 H 92 L 01/06/18 14:32 98.7 F 109 H 20 112/70 89 L 01/06/18 13:46 87 01/06/18 13:36 86 Intake and Output 01/06/18 01/07/18 01/07/18 22:59 06:59 14:59 Other: Voiding Method Urinal # Voids 2 2 No acute distress, oriented 3. Clinically, the patient looks very stable and has no respiratory distress, whatsoever. HEENT examination is grossly unremarkable. Mucous membranes are moist. No oral lesions. Neck supple. Full range of motion. No adenopathy thyromegaly or neck vein distention. Cardiovascular examination reveals regular rhythm rate. S1-S2 normal. No S3 or S4. No discernible murmur noted. Heart rate is about 79 bpm. Lungs reveal coarse expiratory rhonchi. Breath sounds are diminished. This prolongation on forced maneuver. A few scattered expiratory wheezes are appreciated. No crackles. Breath sounds equal bilaterally but diminished throughout. Abdomen soft bowel sounds are heard. No masses or tenderness. Extremities are intact. No cyanosis or clubbing. Very minimal edema is noted. Skin is without rash or lesion. Neurologic examination is brief but nonfocal. Results - Laboratory Findings CBC and BMP: 01/05/18 19:59 01/05/18 19:59 PT/INR, D-dimer PT 9.6 sec (9.0-12.0) 01/05/18 19:59 INR 1.0 (<1.2) 01/05/18 19:59 D-Dimer 0.96 mg/L FEU (<0.60) H 01/05/18 19:59 Abnormal lab findings: Abnormal Labs 01/05/18 01/05/18 01/05/18 19:59 19:59 19:59 RBC 3.70 L Hgb 11.7 L Hct 36.2 L D-Dimer Carbon Dioxide 32 H Glucose 106 H POC Glucose (mg/dL) Hemoglobin A1c ALT 16 L Total Creatine Kinase 325 H CK-MB (CK-2) 2.5 H Total Protein 6.2 L Albumin 3.4 L 01/05/18 01/05/18 01/06/18 19:59 19:59 12:15 RBC Hgb Hct D-Dimer 0.96 H Carbon Dioxide Glucose POC Glucose (mg/dL) 189 H Hemoglobin A1c 6.4 H ALT Total Creatine Kinase CK-MB (CK-2) Total Protein Albumin 01/06/18 01/06/18 01/07/18 17:00 20:30 06:50 RBC Hgb Hct D-Dimer Carbon Dioxide Glucose POC Glucose (mg/dL) 131 H 177 H 161 H Hemoglobin A1c ALT Total Creatine Kinase CK-MB (CK-2) Total Protein Albumin 01/07/18 11:47 RBC Hgb Hct D-Dimer Carbon Dioxide Glucose POC Glucose (mg/dL) 280 H Hemoglobin A1c ALT Total Creatine Kinase CK-MB (CK-2) Total Protein Albumin - Diagnostic Findings Chest x-ray: report reviewed, image reviewed CT scan - chest: report reviewed, image reviewed (Chest x-ray, labs, medications , and CAT scan are all reviewed.) Assessment and Plan Assessment: Assessment COPD exacerbation, complicated by tracheobronchitis, without katharina pneumonia. History of hyperlipidemia History of dementia History of hypothyroidism History of GERD History of BPH History of hypertension Previous history of pneumonia History of rheumatoid arthritis Multiple other medical problems and comorbidities Plan: Plan dated 01/07/2018 The patient's medications are reviewed. We'll make sure he is on appropriate medication such as doing them Pulmicort Perforomist Solu-Medrol and antibiotics. Additional recommendations and suggestions are forthcoming. Typically the patient does not like to be discharged to soon. I believe he likes to stay in the hospital once he is here. Anyway, his chest x-ray only shows some bibasilar atelectasis. He looks very very stable. No respiratory distress whatsoever. We will continue to follow. Prognosis is guarded. Time with Patient: Greater than 30
[2018-01-07 17:10] LABS: Glucose,Whole Blood 162 mg/dL (75-99)
[2018-01-07 20:37] LABS: Glucose,Whole Blood 165 mg/dL (75-99)
[2018-01-07] MEDS: ATORVASTATIN 20 MG TAB PO SCH (22:11)
[2018-01-07] MEDS: DOXEPIN 25 MG CAP PO SCH (22:11)
[2018-01-07] MEDS: TAMSULOSIN 0.4 MG CAP.ER.24H PO SCH (22:11)
[2018-01-07] MEDS: DONEPEZIL 10 MG TAB PO SCH (22:11)
[2018-01-07] MEDS: PANTOPRAZOLE 40 MG TABLET PO SCH (22:12)
[2018-01-07] MEDS: SENNOSIDES 8.6 MG TAB PO SCH (22:12)
[2018-01-07] MEDS: SULFAMETHOX-TMP 800-160MG 1 EACH TAB PO SCH (22:13)
[2018-01-08] MEDS: IPRATROPIUM-ALBUTEROL 3 ML NEB INHALATION SCH ×6 (00:13→19:50)
[2018-01-08] MEDS: methylPREDNISolone SOD SUCCI 40 MG/ML 1 ML VIAL IV SCH ×4 (00:30→21:41)
[2018-01-08] MEDS: LEVOTHYROXINE 88 MCG TAB PO SCH (06:26)
[2018-01-08 07:12] LABS: Glucose,Whole Blood 143 mg/dL (75-99)
[2018-01-08] MEDS: SYMBICORT 160-4.5 MCG INHALER INHALATION SCH ×2 (07:20→19:50)
[2018-01-08] MEDS: DILTIAZEM CD 120 MG CAP.ER.24H PO SCH (08:07)
[2018-01-08] MEDS: FLUTICASONE 50MCG/SPRAY NASAL 16GM EA NOSTRIL SCH (08:07)
[2018-01-08] MEDS: GABAPENTIN 400 MG CAP PO SCH ×3 (08:07→21:44)
[2018-01-08] MEDS: INSULIN ASPART 100 UNIT/ML 1 ML 10 ML VIAL SQ SCH ×4 (08:07→21:42)
[2018-01-08] MEDS: POTASSIUM CHLORIDE ER 10 MEQ TAB.ER.PRT PO SCH (08:08)
[2018-01-08] MEDS: guaiFENesin 600 MG TABLET.ER PO SCH ×2 (08:08→21:43)
[2018-01-08] MEDS: SULFAMETHOX-TMP 800-160MG 1 EACH TAB PO SCH ×2 (08:08→21:45)
[2018-01-08] MEDS: ISOSORBIDE MONONITRATE ER 60 MG TAB.ER.24H PO SCH (08:08)
[2018-01-08] MEDS: MELOXICAM 7.5 MG TAB PO SCH (08:08)
[2018-01-08] MEDS: LORazepam 0.5 MG TAB PO SCH ×3 (08:08→21:52)
[2018-01-08] MEDS: FUROSEMIDE 20 MG TAB PO SCH (08:09)
[2018-01-08] MEDS: ENOXAPARIN 40 MG/0.4 ML SYRINGE SQ SCH (08:09)
[2018-01-08 12:27] LABS: Glucose,Whole Blood 176 mg/dL (75-99)
--- NOTE | 2018-01-08 12:31 | P.PN ---
Subjective Progress Note Date: 01/08/18 Principal diagnosis: Shortness of breath Progress note dated 01/08/2018 This is an 82-year-old male who presents to the emergency department on January 05 with shortness of breath chest congestion cough and phlegm production. The patient was evaluated and admitted with a diagnosis of COPD exacerbation. The patient is feeling a bit better today. This patient is well- known to our service. In addition to COPD, he has a history of hyperlipidemia, dementia, hypothyroidism, GERD, hypertension, pneumonia, BPH, rheumatoid arthritis, chronic hypoxemic respiratory failure chronic back pain, diverticular disease, migraine cephalgia, chronic sinus disease and restless leg syndrome. Again, the patient is doing better today with less in the way of pulmonary complaints. Objective - Vital Signs Vital signs: Vital Signs Temp 98.7 F 01/08/18 06:24 Pulse 80 01/08/18 11:46 Resp 17 01/08/18 06:24 BP 132/74 01/08/18 06:24 Pulse Ox 95 01/08/18 06:24 Intake & Output 01/07/18 01/08/18 01/08/18 18:59 06:59 18:59 Output Total 850 Balance -850 Output: Urine 850 Other: Voiding Method Urinal Urinal # Voids 1 1 - Exam No acute distress, oriented 3. Clinically, the patient looks very stable and has no respiratory distress, whatsoever. HEENT examination is grossly unremarkable. Mucous membranes are moist. No oral lesions. Neck supple. Full range of motion. No adenopathy thyromegaly or neck vein distention. Cardiovascular examination reveals regular rhythm rate. S1-S2 normal. No S3 or S4. No discernible murmur noted. Heart rate is about 79 bpm. Lungs reveal bilateral diminished breath sounds. A few scattered rhonchi and wheezes are appreciated. Breath sounds equal bilaterally. There is prolongation on forced maneuver. The patient is coughing and wheezing on forced maneuver. Abdomen soft bowel sounds are heard. No masses or tenderness. Extremities are intact. No cyanosis or clubbing. Very minimal edema is noted. Skin is without rash or lesion. Neurologic examination is brief but nonfocal. - Labs CBC & Chem 7: 01/05/18 19:59 01/05/18 19:59 Labs: Abnormal Lab Results - Last 24 Hours (Table) 01/07/18 01/07/18 01/08/18 Range/Units 17:07 20:35 07:09 POC Glucose (mg/dL) 162 H 165 H 143 H (75-99) mg/dL Assessment and Plan Assessment: Assessment COPD exacerbation, complicated by tracheobronchitis, without katharina pneumonia. History of hyperlipidemia History of dementia History of hypothyroidism History of GERD History of BPH History of hypertension Previous history of pneumonia History of rheumatoid arthritis Multiple other medical problems and comorbidities Plan: Plan dated 01/07/2018 The patient's medications are reviewed. We'll make sure he is on appropriate medication such as doing them Pulmicort Perforomist Solu-Medrol and antibiotics. Additional recommendations and suggestions are forthcoming. Typically the patient does not like to be discharged to soon. I believe he likes to stay in the hospital once he is here. Anyway, his chest x-ray only shows some bibasilar atelectasis. He looks very very stable. No respiratory distress whatsoever. We will continue to follow. Prognosis is guarded. Plan dated 01/08/2018 The patient's chest x-ray looks relatively benign as as a CT angiogram. There is no evidence of any pulmonary embolism. The patient's medications were reviewed yesterday. We made sure that he was on appropriate medications. Other than some basilar atelectasis, chest x-ray looks very stable. He was placed on [facility]'s Pulmicort performist steroids and antibiotics. The patient should do well. No additional recommendations are made. We'll encourage deep breathing coughing and clearing of secretions. We also recommend the use of incentive spirometer. No new labs or x-rays today. Time with Patient: Less than 30
[2018-01-08] MEDS: MULTIVITAMINS, THERA 1 EACH TAB PO SCH (12:41)
[2018-01-08 17:17] LABS: Glucose,Whole Blood 168 mg/dL (75-99)
--- NOTE | 2018-01-08 17:41 | PN ---
PROGRESS NOTE DATE OF SERVICE: 01/08/2018 PRESENTING COMPLAINT: Short of breath, cough. INTERVAL HISTORY: The patient presented with acute severe chronic obstructive pulmonary disease exacerbation, acute tracheobronchitis. Breathing is getting better, though still a bit short of breath. Did tolerate a diet. Did have a bowel movement. Sitting at the edge of the bed. REVIEW OF SYSTEMS: Done for constitutional, cardiovascular, GI, pulmonary and relevant findings as above. CURRENT MEDICATIONS: Reviewed that include IV Solu-Medrol nebulizer q.4h and Bactrim. PHYSICAL EXAMINATION: VITAL SIGNS: Temperature 98.1, pulse 69, respirations 16, blood pressure 93/55, pulse ox 92 percent on 2 L. GENERAL APPEARANCE: Sitting up, not in distress. EYES: Pupils equal. Conjunctivae normal. HEENT: External appearance of nose and ears normal. Oral cavity normal. NECK JVD not raised. Mass not palpable. RESPIRATORY: Effort increased. LUNGS: Diminished breath sounds. Decreased wheezing. CARDIOVASCULAR: First and second sounds normal. No edema. ABDOMEN: Soft, nontender. Liver and spleen not palpable. PSYCHIATRY: Alert and oriented x3. Mood and affect less anxious-appearing. INVESTIGATIONS: Accu-Cheks are noted. ASSESSMENT: 1. Acute severe chronic obstructive pulmonary disease exacerbation in an ex-smoker with acute tracheobronchitis with clinical response. 2. Gastroesophageal reflux disease. 3. Essential hypertension. 4. Hyperlipidemia. 5. Benign prostatic hypertrophy. 6. Chronic rheumatoid arthritis. 7. Hypothyroid. 8. Chronic hypoxic respiratory failure from underlying chronic obstructive pulmonary disease on home oxygen 2 L. 9. Chronic diverticulosis. 10.Mild cognitive impairment from late onset Alzheimer's dementia. 11.Restless legs syndrome. 12.Gait dysfunction at baseline uses a walker. 13.Chronic pain syndrome for which patient has an intrathecal pain pump. 14.Tight phimosis. The patient overall continues to improve. We will scale back on IV Solu-Medrol to q.12 hours. Other medications to continue. The patient is seen by Dr. Ventura for the phimosis. He will see the patient as an outpatient. To follow up with Dr. Vetnura as an outpatient. MMODL / IJN: [id number] /
[2018-01-08 21:38] LABS: Glucose,Whole Blood 198 mg/dL (75-99)
[2018-01-08] MEDS: SENNOSIDES 8.6 MG TAB PO SCH (21:43)
[2018-01-08] MEDS: DOXEPIN 25 MG CAP PO SCH (21:44)
[2018-01-08] MEDS: TAMSULOSIN 0.4 MG CAP.ER.24H PO SCH (21:44)
[2018-01-08] MEDS: PANTOPRAZOLE 40 MG TABLET PO SCH (21:44)
[2018-01-08] MEDS: DONEPEZIL 10 MG TAB PO SCH (21:45)
[2018-01-08] MEDS: ATORVASTATIN 20 MG TAB PO SCH (21:45)
[2018-01-09] MEDS: IPRATROPIUM-ALBUTEROL 3 ML NEB INHALATION SCH ×7 (00:03→23:48)
[2018-01-09] MEDS: LEVOTHYROXINE 88 MCG TAB PO SCH (06:45)
[2018-01-09 07:32] LABS: Glucose,Whole Blood 266 mg/dL (75-99)
[2018-01-09] MEDS: ENOXAPARIN 40 MG/0.4 ML SYRINGE SQ SCH (07:49)
[2018-01-09] MEDS: MELOXICAM 7.5 MG TAB PO SCH (07:49)
[2018-01-09] MEDS: POTASSIUM CHLORIDE ER 10 MEQ TAB.ER.PRT PO SCH (07:49)
[2018-01-09] MEDS: methylPREDNISolone SOD SUCCI 40 MG/ML 1 ML VIAL IV SCH (07:50)
[2018-01-09] MEDS: guaiFENesin 600 MG TABLET.ER PO SCH ×2 (07:50→21:06)
[2018-01-09] MEDS: SULFAMETHOX-TMP 800-160MG 1 EACH TAB PO SCH ×2 (07:50→21:05)
[2018-01-09] MEDS: DILTIAZEM CD 120 MG CAP.ER.24H PO SCH (07:50)
[2018-01-09] MEDS: LORazepam 0.5 MG TAB PO SCH ×3 (07:50→21:06)
[2018-01-09] MEDS: FUROSEMIDE 20 MG TAB PO SCH (07:50)
[2018-01-09] MEDS: ISOSORBIDE MONONITRATE ER 60 MG TAB.ER.24H PO SCH (07:51)
[2018-01-09] MEDS: INSULIN ASPART 100 UNIT/ML 1 ML 10 ML VIAL SQ SCH ×4 (07:51→21:07)
[2018-01-09] MEDS: FLUTICASONE 50MCG/SPRAY NASAL 16GM EA NOSTRIL SCH (07:52)
[2018-01-09] MEDS: SYMBICORT 160-4.5 MCG INHALER INHALATION SCH ×2 (08:00→19:42)
[2018-01-09] MEDS: GABAPENTIN 400 MG CAP PO SCH ×3 (10:32→21:05)
[2018-01-09 11:40] LABS: Glucose,Whole Blood 168 mg/dL (75-99)
[2018-01-09] MEDS: MULTIVITAMINS, THERA 1 EACH TAB PO SCH (11:59)
[2018-01-09] MEDS: ACETAMINOPHEN TAB 325 MG TAB PO PRN (12:05)
[2018-01-09 17:44] LABS: Glucose,Whole Blood 141 mg/dL (75-99)
[2018-01-09] MEDS: methylPREDNISolone SOD SUCCI 125 MG/2 ML VIAL IV SCH (17:44)
--- NOTE | 2018-01-09 18:04 | P.PN ---
Subjective Progress Note Date: 01/09/18 Principal diagnosis: COPD exacerbation, complicated by tracheobronchitis Progress note dated 01/08/2018 This is an 82-year-old male who presents to the emergency department on January 05 with shortness of breath chest congestion cough and phlegm production. The patient was evaluated and admitted with a diagnosis of COPD exacerbation. The patient is feeling a bit better today. This patient is well- known to our service. In addition to COPD, he has a history of hyperlipidemia, dementia, hypothyroidism, GERD, hypertension, pneumonia, BPH, rheumatoid arthritis, chronic hypoxemic respiratory failure chronic back pain, diverticular disease, migraine cephalgia, chronic sinus disease and restless leg syndrome. Again, the patient is doing better today with less in the way of pulmonary complaints. On 01/09/2018 patient is seen in follow-up on medical surgical floor. Remains quiet bronchospastic, wheezy and congested and, patient has a loose cough. Dyspneic with exertion. Remains on 2 L per nasal cannula, and his pulse ox is 95%, he is afebrile. He is on IV steroids, and the dose was recently dropped to 40 mg every 12 hours, we will probably have to increase it to 60 mg every 6 hours in view of patient's continued bronchospastic state, and congestion. Continue with nebulized bronchodilators, and Bactrim. Objective - Vital Signs Vital signs: Vital Signs Temp 98.8 F 01/09/18 14:22 Pulse 84 01/09/18 16:03 Resp 18 01/09/18 14:22 BP 112/64 01/09/18 14:22 Pulse Ox 95 01/09/18 14:22 Intake & Output 01/08/18 01/09/18 01/09/18 18:59 06:59 18:59 Intake Total 100 Balance 100 Intake: Oral 100 Other: Voiding Method Urinal Urinal # Voids 3 1 3 - Exam No acute distress, oriented 3. Clinically, the patient looks very stable and has no respiratory distress, whatsoever. HEENT examination is grossly unremarkable. Mucous membranes are moist. No oral lesions. Neck supple. Full range of motion. No adenopathy thyromegaly or neck vein distention. Cardiovascular examination reveals regular rhythm rate. S1-S2 normal. No S3 or S4. No discernible murmur noted. Heart rate is about 79 bpm. Lungs reveal bilateral diminished breath sounds. scattered rhonchi and wheezes are appreciated. Breath sounds equal bilaterally. There is prolongation on forced maneuver. The patient is coughing and wheezing on forced maneuver. Abdomen soft bowel sounds are heard. No masses or tenderness. Extremities are intact. No cyanosis or clubbing. Very minimal edema is noted. Skin is without rash or lesion. Neurologic examination is brief but nonfocal. - Labs CBC & Chem 7: 01/05/18 19:59 01/05/18 19:59 Labs: Abnormal Lab Results - Last 24 Hours (Table) 01/08/18 01/09/18 01/09/18 Range/Units 21:34 07:31 11:36 POC Glucose (mg/dL) 198 H 266 H 168 H (75-99) mg/dL 01/09/18 Range/Units 17:14 POC Glucose (mg/dL) 141 H (75-99) mg/dL Assessment and Plan Plan: Assessment: COPD exacerbation, complicated by tracheobronchitis, without katharina pneumonia. History of hyperlipidemia History of dementia History of hypothyroidism History of GERD History of BPH History of hypertension Previous history of pneumonia History of rheumatoid arthritis Multiple other medical problems and comorbidities Plan: Continue current medical treatment, will increase the Solu-Medrol to 60 mg every 6 hours, continue Pulmicort, Perforomist, and DuoNeb nebulized bronchodilators. Continue Bactrim. Patient remains bronchospastic and congested. We'll try and I performed a history & physical examination of the patient and discussed their management with my nurse practitioner, Marta Herrera. I reviewed the nurse practitioner's note and agree with the documented findings and plan of care. Lung sounds are wheezy and congested. The findings and the impression was discussed with the patient. I attest to the documentation by the nurse practitioner. Time with Patient: Less than 30
[2018-01-09 20:32] LABS: Glucose,Whole Blood 220 mg/dL (75-99)
[2018-01-09] MEDS: DOXEPIN 25 MG CAP PO SCH (21:05)
[2018-01-09] MEDS: DONEPEZIL 10 MG TAB PO SCH (21:06)
[2018-01-09] MEDS: ATORVASTATIN 20 MG TAB PO SCH (21:06)
[2018-01-09] MEDS: SENNOSIDES 8.6 MG TAB PO SCH (21:06)
[2018-01-09] MEDS: TAMSULOSIN 0.4 MG CAP.ER.24H PO SCH (21:06)
[2018-01-09] MEDS: PANTOPRAZOLE 40 MG TABLET PO SCH (21:06)
--- NOTE | 2018-01-09 21:25 | PN ---
PROGRESS NOTE DATE OF SERVICE: 01/09/18 PRESENTING COMPLAINT: Short of breath, cough. INTERVAL HISTORY: This is a patient with acute severe chronic obstructive pulmonary disease exacerbation, acute tracheobronchitis. Breathing continues to improve, wheezing is less. Tolerating a diet, up to the bathroom. Did have a bowel movement. The patient actually walked in the hallway twice. is present. REVIEW OF SYSTEMS: Done for constitutional, cardiovascular, GI, pulmonary; relevant findings as above. CURRENT MEDICATIONS: Reviewed that include DuoNeb every 4 hours, IV Solu-Medrol. PHYSICAL EXAMINATION: Temperature 98, pulse 50, respiratory 18, blood pressure 102/64, pulse ox 95% on 2 L. GENERAL APPEARANCE: Sitting up on the edge of the bed. Breathing better. EYES: Pupils equal. Conjunctivae normal. HEENT: External appearance of nose and ears normal. Oral cavity normal. NECK: JVD not raised. Mass not palpable. RESPIRATORY: Effort normal. Lungs, diminished breath sounds. Decreased wheezing. Better air entry. CARDIOVASCULAR: First and second sounds, no edema. ABDOMEN: Soft, nontender. Liver and spleen not palpable. PSYCHIATRY: Alert and oriented x3. Mood and affect less anxious-appearing. INVESTIGATIONS: Accu-Cheks are noted. ASSESSMENT: 1. Acute severe chronic obstructive pulmonary disease exacerbation an ex-smoker with acute tracheobronchitis with clinical response. 2. Gastroesophageal reflux disease. 3. Essential hypertension. 4. Hyperlipidemia. 5. Benign prostatic hypertrophy. 6. Chronic rheumatoid arthritis. 7. Hypothyroid. 8. Chronic hypoxic respiratory failure from underlying chronic obstructive pulmonary disease. 9. Chronic diverticulosis. 10.Mild cognitive impairment from late onset Alzheimer's dementia. 11.Restless legs syndrome. 12.Gait dysfunction at baseline uses a walker. 13.Chronic pain syndrome for which patient has an intrathecal pain pump. 14.Tight phimosis to be followed by Urology as an outpatient. PLAN: Continue current medication and treatment plan. The patient's dose of Solu-Medrol was increased by Pulmonary. The patient overall looks to be doing better. MMODL / IJN: [id number] /
[2018-01-10] MEDS: methylPREDNISolone SOD SUCCI 125 MG/2 ML VIAL IV SCH ×5 (00:20→23:19)
[2018-01-10] MEDS: IPRATROPIUM-ALBUTEROL 3 ML NEB INHALATION SCH ×6 (03:55→23:18)
[2018-01-10] MEDS: LEVOTHYROXINE 88 MCG TAB PO SCH (06:31)
[2018-01-10 07:07] LABS: Glucose,Whole Blood 178 mg/dL (75-99)
[2018-01-10] MEDS: SYMBICORT 160-4.5 MCG INHALER INHALATION SCH ×2 (07:18→20:08)
[2018-01-10] MEDS: POTASSIUM CHLORIDE ER 10 MEQ TAB.ER.PRT PO SCH (07:41)
[2018-01-10] MEDS: INSULIN ASPART 100 UNIT/ML 1 ML 10 ML VIAL SQ SCH ×4 (07:41→21:18)
[2018-01-10] MEDS: SULFAMETHOX-TMP 800-160MG 1 EACH TAB PO SCH ×2 (07:41→20:47)
[2018-01-10] MEDS: MULTIVITAMINS, THERA 1 EACH TAB PO SCH (07:42)
[2018-01-10] MEDS: FUROSEMIDE 20 MG TAB PO SCH (07:42)
[2018-01-10] MEDS: DILTIAZEM CD 120 MG CAP.ER.24H PO SCH (07:42)
[2018-01-10] MEDS: ENOXAPARIN 40 MG/0.4 ML SYRINGE SQ SCH (07:43)
[2018-01-10] MEDS: FLUTICASONE 50MCG/SPRAY NASAL 16GM EA NOSTRIL SCH (07:43)
[2018-01-10] MEDS: guaiFENesin 600 MG TABLET.ER PO SCH ×2 (07:44→20:46)
[2018-01-10] MEDS: MELOXICAM 7.5 MG TAB PO SCH (07:44)
[2018-01-10] MEDS: GABAPENTIN 400 MG CAP PO SCH ×3 (07:44→20:47)
[2018-01-10] MEDS: ISOSORBIDE MONONITRATE ER 60 MG TAB.ER.24H PO SCH (07:44)
[2018-01-10] MEDS: LORazepam 0.5 MG TAB PO SCH ×3 (07:49→20:48)
[2018-01-10 11:45] LABS: Glucose,Whole Blood 210 mg/dL (75-99)
--- NOTE | 2018-01-10 16:09 | P.PN ---
Subjective Progress Note Date: 01/10/18 Principal diagnosis: COPD exacerbation, complicated by tracheobronchitis Progress note dated 01/08/2018 This is an 82-year-old male who presents to the emergency department on January 05 with shortness of breath chest congestion cough and phlegm production. The patient was evaluated and admitted with a diagnosis of COPD exacerbation. The patient is feeling a bit better today. This patient is well- known to our service. In addition to COPD, he has a history of hyperlipidemia, dementia, hypothyroidism, GERD, hypertension, pneumonia, BPH, rheumatoid arthritis, chronic hypoxemic respiratory failure chronic back pain, diverticular disease, migraine cephalgia, chronic sinus disease and restless leg syndrome. Again, the patient is doing better today with less in the way of pulmonary complaints. On 01/09/2018 patient is seen in follow-up on medical surgical floor. Remains quiet bronchospastic, wheezy and congested and, patient has a loose cough. Dyspneic with exertion. Remains on 2 L per nasal cannula, and his pulse ox is 95%, he is afebrile. He is on IV steroids, and the dose was recently dropped to 40 mg every 12 hours, we will probably have to increase it to 60 mg every 6 hours in view of patient's continued bronchospastic state, and congestion. Continue with nebulized bronchodilators, and Bactrim. On 01/10/2018 patient seen in follow-up on medical surgical floor. Still dyspneic with exertion, but a lot less bronchospastic, hardly any wheezing on today's exam, still has occasional cough, overall much improved. Room air pulse ox is 93%, he is afebrile, hemodynamically stable. Continue with current medical treatment, will continue current dose of IV steroids, and nebulized bronchodilators and Bactrim. Patient is improving, anticipate discharge in the next 24 hours. Objective - Vital Signs Vital signs: Vital Signs Temp 98.4 F 01/10/18 15:00 Pulse 118 H 01/10/18 15:00 Resp 16 01/10/18 15:00 BP 109/67 01/10/18 15:00 Pulse Ox 93 L 01/10/18 15:00 Intake & Output 01/09/18 01/10/18 01/10/18 18:59 06:59 18:59 Other: Voiding Method Urinal # Voids 2 2 3 - Exam No acute distress, oriented 3. Clinically, the patient looks very stable and has no respiratory distress, whatsoever. HEENT examination is grossly unremarkable. Mucous membranes are moist. No oral lesions. Neck supple. Full range of motion. No adenopathy thyromegaly or neck vein distention. Cardiovascular examination reveals regular rhythm rate. S1-S2 normal. No S3 or S4. No discernible murmur noted. Heart rate is about 79 bpm. Lungs reveal bilateral diminished breath sounds. No wheezing today. Breath sounds equal bilaterally. There is prolongation on forced maneuver. The patient is coughing on forced exhale maneuver Abdomen soft bowel sounds are heard. No masses or tenderness. Extremities are intact. No cyanosis or clubbing. Very minimal edema is noted. Skin is without rash or lesion. Neurologic examination is brief but nonfocal. - Labs CBC & Chem 7: 01/05/18 19:59 01/05/18 19:59 Labs: Abnormal Lab Results - Last 24 Hours (Table) 01/09/18 01/09/18 01/10/18 Range/Units 17:14 20:27 07:04 POC Glucose (mg/dL) 141 H 220 H 178 H (75-99) mg/dL 01/10/18 Range/Units 11:44 POC Glucose (mg/dL) 210 H (75-99) mg/dL Assessment and Plan Plan: Assessment: COPD exacerbation, complicated by tracheobronchitis, without katharina pneumonia. History of hyperlipidemia History of dementia History of hypothyroidism History of GERD History of BPH History of hypertension Previous history of pneumonia History of rheumatoid arthritis Multiple other medical problems and comorbidities Plan: Less wheezy, still dyspneic with exertion, but overall is improving. Continue current dose of IV steroids, nebulized bronchodilators and antibiotics. Increase activity as tolerated, anticipate further improvement, possible discharge in next 24 hours. I performed a history & physical examination of the patient and discussed their management with my nurse practitioner, Marta Herrera. I reviewed the nurse practitioner's note and agree with the documented findings and plan of care. Lung sounds are wheezy and congested. The findings and the impression was discussed with the patient. I attest to the documentation by the nurse practitioner. Time with Patient: Less than 30
--- NOTE | 2018-01-10 16:17 | PN ---
PROGRESS NOTE DATE OF SERVICE: 01/10/2018 PRESENTING COMPLAINT: Short of breath. INTERVAL HISTORY: This patient has acute severe COPD exacerbation and presented with acute tracheobronchitis. His breathing has improved. Tolerating a diet. He has been out of bed. The patient also has chronic pain. Had a bowel movement. is at the bedside. REVIEW OF SYSTEMS: Done for constitutional, cardiovascular, GI, pulmonary; relevant findings as above. CURRENT MEDICATIONS: Reviewed. They include DuoNeb, IV Solu-Medrol. PHYSICAL EXAMINATION: Temperature 98.3, pulse 95, respiration 16, blood pressure 142/88, pulse ox 93% on 2 L. GENERAL APPEARANCE: Lying in bed. More comfortable. EYES: Pupils equal. Conjunctivae normal. HEENT: External appearance of nose and ears normal. Oral cavity normal. NECK: JVD not raised. Mass not palpable. RESPIRATORY: Effort increased. LUNGS: Decreased breath sounds. Prolonged expiration. Improved wheezing. CARDIOVASCULAR: First and second sounds normal. No edema. ABDOMEN: Soft, non-tender. Liver and spleen not palpable. PSYCHIATRY: Alert and oriented x3. Mood and affect less anxious-appearing. INVESTIGATIONS: Accu-Cheks are noted. ASSESSMENT: 1. Acute severe chronic obstructive pulmonary disease exacerbation in an ex-smoker with acute tracheobronchitis with significant improvement. 2. Gastroesophageal reflux disease. 3. Essential hypertension. 4. Hyperlipidemia. 5. Benign prostatic hypertrophy. 6. Chronic rheumatoid arthritis. 7. Hypothyroid. 8. Chronic hypoxic respiratory failure from underlying chronic obstructive pulmonary disease. 9. Chronic diverticulosis. 10.Mild cognitive impairment from late-onset Alzheimer's dementia. 11.Restless legs syndrome. 12.Gait dysfunction; at baseline uses a walker. 13.Chronic pain syndrome, for which patient has an intrathecal pain pump, being followed by Dr. Hilliard. 14.Tight phimosis, to be followed by Urology as an outpatient. PLAN: Care was discussed with the patient. He is doing much better. Hopefully patient will go home tomorrow. MMODL / IJN: [id number] /
[2018-01-10 17:01] LABS: Glucose,Whole Blood 158 mg/dL (75-99)
[2018-01-10] MEDS: ATORVASTATIN 20 MG TAB PO SCH (20:46)
[2018-01-10] MEDS: DOXEPIN 25 MG CAP PO SCH (20:46)
[2018-01-10] MEDS: DONEPEZIL 10 MG TAB PO SCH (20:46)
[2018-01-10] MEDS: PANTOPRAZOLE 40 MG TABLET PO SCH (20:47)
[2018-01-10] MEDS: SENNOSIDES 8.6 MG TAB PO SCH (20:47)
[2018-01-10] MEDS: TAMSULOSIN 0.4 MG CAP.ER.24H PO SCH (20:47)
[2018-01-10 20:58] LABS: Glucose,Whole Blood 236 mg/dL (75-99)
[2018-01-11] MEDS: IPRATROPIUM-ALBUTEROL 3 ML NEB INHALATION SCH ×3 (03:42→11:31)
[2018-01-11 06:20] VITALS: BP 134/85; RESP 17; TEMP 98.5
[2018-01-11] MEDS: methylPREDNISolone SOD SUCCI 125 MG/2 ML VIAL IV SCH ×2 (06:24→11:36)
[2018-01-11] MEDS: LEVOTHYROXINE 88 MCG TAB PO SCH (06:25)
[2018-01-11 07:29] LABS: Glucose,Whole Blood 188 mg/dL (75-99)
[2018-01-11] MEDS: INSULIN ASPART 100 UNIT/ML 1 ML 10 ML VIAL SQ SCH ×2 (07:59→13:36)
[2018-01-11] MEDS: ENOXAPARIN 40 MG/0.4 ML SYRINGE SQ SCH (07:59)
[2018-01-11] MEDS: FUROSEMIDE 20 MG TAB PO SCH (07:59)
[2018-01-11] MEDS: GABAPENTIN 400 MG CAP PO SCH (07:59)
[2018-01-11] MEDS: ISOSORBIDE MONONITRATE ER 60 MG TAB.ER.24H PO SCH (07:59)
[2018-01-11] MEDS: SULFAMETHOX-TMP 800-160MG 1 EACH TAB PO SCH (08:00)
[2018-01-11] MEDS: MELOXICAM 7.5 MG TAB PO SCH (08:00)
[2018-01-11] MEDS: guaiFENesin 600 MG TABLET.ER PO SCH (08:00)
[2018-01-11] MEDS: MULTIVITAMINS, THERA 1 EACH TAB PO SCH (08:00)
[2018-01-11] MEDS: POTASSIUM CHLORIDE ER 10 MEQ TAB.ER.PRT PO SCH (08:01)
[2018-01-11] MEDS: DILTIAZEM CD 120 MG CAP.ER.24H PO SCH (08:01)
[2018-01-11] MEDS: FLUTICASONE 50MCG/SPRAY NASAL 16GM EA NOSTRIL SCH (08:03)
[2018-01-11] MEDS: SYMBICORT 160-4.5 MCG INHALER INHALATION SCH (08:43)
[2018-01-11] MEDS: LORazepam 0.5 MG TAB PO SCH (08:53)
[2018-01-11 11:13] LABS: Glucose,Whole Blood 246 mg/dL (75-99)
[2018-01-11 11:45] VITALS: PULSE 96
--- NOTE | 2018-01-11 14:10 | P.PN ---
Subjective Progress Note Date: 01/11/18 Principal diagnosis: Acute exacerbation of chronic obstructive pulmonary disease complicated by acute tracheobronchitis. This is an 82-year-old male who presents to the emergency department on January 05 with shortness of breath chest congestion cough and phlegm production. The patient was evaluated and admitted with a diagnosis of COPD exacerbation. The patient is feeling a bit better today. This patient is well- known to our service. In addition to COPD, he has a history of hyperlipidemia, dementia, hypothyroidism, GERD, hypertension, pneumonia, BPH, rheumatoid arthritis, chronic hypoxemic respiratory failure chronic back pain, diverticular disease, migraine cephalgia, chronic sinus disease and restless leg syndrome. Again, the patient is doing better today with less in the way of pulmonary complaints. On 01/09/2018 patient is seen in follow-up on medical surgical floor. Remains quiet bronchospastic, wheezy and congested and, patient has a loose cough. Dyspneic with exertion. Remains on 2 L per nasal cannula, and his pulse ox is 95%, he is afebrile. He is on IV steroids, and the dose was recently dropped to 40 mg every 12 hours, we will probably have to increase it to 60 mg every 6 hours in view of patient's continued bronchospastic state, and congestion. Continue with nebulized bronchodilators, and Bactrim. On 01/10/2018 patient seen in follow-up on medical surgical floor. Still dyspneic with exertion, but a lot less bronchospastic, hardly any wheezing on today's exam, still has occasional cough, overall much improved. Room air pulse ox is 93%, he is afebrile, hemodynamically stable. Continue with current medical treatment, will continue current dose of IV steroids, and nebulized bronchodilators and Bactrim. Patient is improving, anticipate discharge in the next 24 hours. The patient is seen again today 01/11/2018 in follow-up on the regular medical floor. He is resting comfortably in bed. He is awake and alert in no acute distress. He states he is doing quite a bit better today as compared to yesterday. He is maintaining good O2 saturations in the 90s on room air now. He has been afebrile. Hemodynamically stable. He has been maintained on bronchodilators, Symbicort, IV solu Medrol. Objective - Vital Signs Vital signs: Vital Signs Temp 98.5 F 01/11/18 06:20 Pulse 96 01/11/18 11:44 Resp 17 01/11/18 06:20 BP 134/85 01/11/18 06:20 Pulse Ox 95 01/11/18 06:20 Intake & Output 01/10/18 01/11/18 01/11/18 18:59 06:59 18:59 Other: # Voids 3 1 4 - Exam No acute distress, oriented 3. Clinically, the patient is improved and nearly back to his baseline. HEENT examination is grossly unremarkable. Mucous membranes are moist. No oral lesions. Neck supple. Full range of motion. No adenopathy thyromegaly or neck vein distention. Cardiovascular examination reveals regular rhythm rate. S1-S2 normal. No S3 or S4. No discernible murmur noted. Heart rate is about 79 bpm. Lungs reveal bilateral diminished breath sounds. No wheezing today. Breath sounds equal bilaterally. There is prolongation on forced maneuver. The patient is coughing on forced exhale maneuver Abdomen soft bowel sounds are heard. No masses or tenderness. Extremities are intact. No cyanosis or clubbing. Very minimal edema is noted. Skin is without rash or lesion. Neurologic examination is brief but nonfocal. - Labs CBC & Chem 7: 01/05/18 19:59 01/05/18 19:59 Labs: Abnormal Lab Results - Last 24 Hours (Table) 01/10/18 01/10/18 01/11/18 Range/Units 17:00 20:56 07:18 POC Glucose (mg/dL) 158 H 236 H 188 H (75-99) mg/dL 01/11/18 Range/Units 11:10 POC Glucose (mg/dL) 246 H (75-99) mg/dL Assessment and Plan Assessment: Assessment: COPD exacerbation, complicated by tracheobronchitis, without katharina pneumonia. History of hyperlipidemia History of dementia History of hypothyroidism History of GERD History of BPH History of hypertension Previous history of pneumonia History of rheumatoid arthritis Multiple other medical problems and comorbidities Plan: The patient was seen and evaluated by Dr. Pepe. He is stable from the pulmonary standpoint and could be discharged home today. Complete his course of antibiotics. Complete a prednisone taper. Follow-up in our office in 1-2 weeks' time. He is however encouraged to call sooner with any recurrence of symptoms or other questions or concerns. I, the cosigning physician, performed a history & physical examination of the patient. Lungs sounds have faint end expiratory wheeze, diminished Maintaining good O2 saturations in the 90s on room air. I discussed the assessment and plan of care with my nurse practitioner, Hailey Oh. I attest to the above note as dictated by her.
--- NOTE | 2018-01-12 05:03 | DS ---
DISCHARGE SUMMARY DATE OF ADMISSION: 01/05/2018. DATE OF DISCHARGE: 01/11/2018. FINAL DIAGNOSES: 1. Acute severe chronic obstructive pulmonary disease exacerbation with acute tracheobronchitis in an ex-smoker. 2. Gastroesophageal reflux disease. 3. Essential hypertension. 4. Hyperlipidemia. 5. Benign prostatic hypertrophy. 6. Chronic rheumatoid arthritis. 7. Hypothyroid. 8. Chronic hypoxic respiratory failure from underlying chronic obstructive pulmonary disease. 9. Chronic diverticulosis colonic. 10.Mild cognitive impairment from late onset Alzheimer's dementia. 11.Restless legs syndrome. 12.Gait dysfunction at baseline uses a walker. 13.Chronic pain syndrome. The patient has an intrathecal pain pump being followed by Dr. Hilliard. 14.Tight phimosis to be followed by Urology as an outpatient. HOSPITAL COURSE: This patient who was an ex-smoker presented with severe chronic obstructive pulmonary disease exacerbation tracheobronchitis. Responded well to IV steroids, antibiotics and breathing treatments. Other home medications were continued. The patient has got a tight phimosis. Seen by Dr. Ventura to follow up as an outpatient. CONSULTATIONS: Consultation Dr. Ventura from Urology, Dr. Jones from Pulmonary. EXAMINATION: Afebrile, pulse 93, respiratory rate 17, blood pressure 134/85, pulse ox 95% on 2 L. LUNGS: Decreased breath sounds. Prolonged expiration. Psych: AO x3. DISCHARGE MEDICATIONS: 1. Lipitor 20 mg q.h.s. 2. Aricept 10 mg q.h.s. 3. Imdur ER 60 mg a day. 4. Synthroid 135 mcg a day. 5. Omeprazole 40 mg q.h.s. 6. Flomax 0.4-0.8 mg q.h.s. 7. Requip 0.5 mg p.o. t.i.d. 8. Morphine pain pump. 9. Senokot 17.2 mg p.o. q.h.s. 10.Multivitamin adult gummies 1 tablet p.o. daily. 11.Nitrostat 0.4 sublingual q.5 p.r.n. 12.Symbicort 160/4.5, 2 puffs b.i.d. 13.Ventolin 2.5 t.i.d. p.r.n. 14.Cardia XT 120 mg p.o. daily. 15.Senokot 50 mg q.h.s. 16.Flonase 1 spray each nostril daily. 17.Lasix 20 mg p.o. daily. 18.DuoNeb q.i.d. p.r.n. 19.Potassium 10 mEq p.o. daily. 20.Neurontin 800 mg p.o. t.i.d. 21.Breo Ellipta 100/25 1 puff daily. 22.Ativan 0.5 mg p.o. t.i.d. 23.Mobic 50 mg p.o. daily. 24.Mucinex 200 mg p.o. b.i.d. 25.Bactrim DS 1 tablet p.o. b.i.d. 6 tablets. 26.Prednisone taper. 27.Home oxygen to continue. 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 Follow up with Fly Elkins in [place] on 01/13/2018, follow up with Dr. Ventura in [address] Elkins in [place]. MMODL / IJN: [id number] /
== END 2018-01-11 14:27 | disposition home health service (06) | DRG 191 ==
LOC: EC 19:40 → OBSVTOIN 22:28 → 4MS4W 22:28
PROVIDERS: ADMIT Hospitalist; ATTEND Hospitalist
DX: J44.0 Chronic obstructive pulmonary disease with (acute) lower respiratory infection (principal); J96.11 Chronic respiratory failure with hypoxia; J20.9 Acute bronchitis, unspecified; J44.1 Chronic obstructive pulmonary disease with (acute) exacerbation; M06.9 Rheumatoid arthritis, unspecified; G30.1 Alzheimer's disease with late onset; F02.80 Dementia in other diseases classified elsewhere, unspecified severity, without behavioral disturbance, psychotic disturbance, mood disturbance, and anxiety; E03.9 Hypothyroidism, unspecified; E78.5 Hyperlipidemia, unspecified; I10 Essential (primary) hypertension; K21.9 Gastro-esophageal reflux disease without esophagitis; G89.4 Chronic pain syndrome; M54.5 Low back pain; G43.909 Migraine, unspecified, not intractable, without status migrainosus; K57.30 Diverticulosis of large intestine without perforation or abscess without bleeding; G25.81 Restless legs syndrome; N40.0 Benign prostatic hyperplasia without lower urinary tract symptoms; N47.1 Phimosis; F41.9 Anxiety disorder, unspecified; R26.9 Unspecified abnormalities of gait and mobility; H54.7 Unspecified visual loss; G56.01 Carpal tunnel syndrome, right upper limb; Z99.81 Dependence on supplemental oxygen; Z79.51 Long term (current) use of inhaled steroids; Z79.1 Long term (current) use of non-steroidal anti-inflammatories (NSAID); Z79.890 Hormone replacement therapy; Z79.899 Other long term (current) drug therapy; Z87.01 Personal history of pneumonia (recurrent); Z86.010 Personal history of colon polyps; Z87.891 Personal history of nicotine dependence; Z98.42 Cataract extraction status, left eye; Z96.1 Presence of intraocular lens; Z97.8 Presence of other specified devices; Z86.19 Personal history of other infectious and parasitic diseases; Z88.0 Allergy status to penicillin; Z91.041 Radiographic dye allergy status; Z83.1 Family history of other infectious and parasitic diseases; Z83.79 Family history of other diseases of the digestive system; Z82.49 Family history of ischemic heart disease and other diseases of the circulatory system; Z80.1 Family history of malignant neoplasm of trachea, bronchus and lung; Z81.1 Family history of alcohol abuse and dependence
CPT/HCPCS: 36415; 71046; 71275; 80053; 82550; 82553; 83036; 83690; 83735; 83880; 84484; 85025; 85379; 85610; 85730; 94640; 94760; 96361; 96374; 96375; 99285

== ENCOUNTER 2018-02-06 13:15 | Inpatient (IN) | payer MEDICARE, BC ==
[2018-02-06] MEDS ORDERED: SODIUM CHLORIDE 0.9% 1,000 ML IV STA ×2 (13:32→15:08)
[2018-02-06] MEDS ORDERED: SODIUM CHLORIDE 0.9% 500 ML 500 ML IV STA (13:36)
[2018-02-06] MEDS ORDERED: MECLIZINE 12.5 MG TAB PO STA (13:36)
[2018-02-06 13:55] LABS: Basophils % (A) 0 %; Eosinophils # (A) 0.1 k/uL (0-0.7); Eosinophils % (A) 3 %; HCT 34.5 % (39.0-53.0); HGB 11.2 gm/dL (13.0-17.5); Lymphocytes # (A) 1.4 k/uL (1.0-4.8); Lymphocytes % (A) 34 %; MCHC 32.6 g/dL (31.0-37.0); MCV 98.2 fL (80.0-100.0); Mean Platelet Volume 6.8; Monocytes # (A) 0.3 k/uL (0-1.0); Monocytes % (A) 6 %; Neutrophils # (A) 2.3 k/uL (1.3-7.7); Neutrophils % (A) 55 %; Platelet Count 180 k/uL (150-450); RBC 3.52 m/uL (4.30-5.90); WBC 4.2 k/uL (3.8-10.6)
[2018-02-06 14:04] LABS: Partial Thromboplastin Time 26.9 sec (22.0-30.0); Prothrombin Time 9.5 sec (9.0-12.0)
[2018-02-06 14:07] LABS: Albumin 3.1 g/dL (3.5-5.0); Calcium 8.5 mg/dL (8.4-10.2); Potassium 4.5 mmol/L (3.5-5.1); Total Bilirubin 0.4 mg/dL (0.2-1.3); Total Protein 5.8 g/dL (6.3-8.2)
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
[2018-02-06 14:17] LABS: Creatine Kinase 133 U/L (55-170)
[2018-02-06 14:30] LABS: Creatine Kinase MB 1.7 ng/mL (0.0-2.4); Troponin I <0.012 ng/mL (0.000-0.034)
--- NOTE | 2018-02-06 14:35 | XR ---
EXAMINATION TYPE: XR chest 2V DATE OF EXAM: 02/06/2018 COMPARISON: 01/05/2018 HISTORY: Shortness of breath TECHNIQUE: Frontal and lateral views of the chest are obtained. FINDINGS: Scattered senescent parenchymal changes noted. Hyperinflation compatible with COPD. No evidence for infiltrate. No evidence for atelectasis. Focal eventration right hemidiaphragm. Heart size is stable. Mediastinal structures are stable and grossly unremarkable. No evidence for hilar prominence. Degenerative changes dorsal spine. IMPRESSION: 1. No evidence for acute pulmonary disease.
[2018-02-06] MEDS ORDERED: DEXAMETHASONE SOD PHOSPHATE 10 MG/ML 1 ML VIAL IV STA (15:20)
[2018-02-06] MEDS ORDERED: IPRATROPIUM-ALBUTEROL 3 ML NEB INHALATION STA (15:20)
[2018-02-06 15:31] LABS: Appearance,Urine Clear (Clear); Bilirubin,Urine Negative (Negative); Blood,Urine Negative (Negative); Color,Urine Yellow; Glucose,Urine (UA) Negative (Negative); Ketones,Urine Negative (Negative); Leukocyte Esterase,Urine Negative (Negative); Nitrite,Urine Negative (Negative); PH, Urine 5.5 (5.0-8.0); Protein,Urine Negative (Negative); Specific Gravity,Urine 1.013 (1.001-1.035); Urobilinogen,Urine <2.0 mg/dL (<2.0)
[2018-02-06] MEDS ORDERED: LORazepam 2 MG/ML INJ IV STA (15:44)
[2018-02-06] MEDS ORDERED: ACETAMINOPHEN TAB 325 MG TAB PO PRN (17:23)
[2018-02-06] MEDS ORDERED: SODIUM CHLORIDE 0.9% 1,000 ML IV ONE (17:23)
[2018-02-06] MEDS ORDERED: NALOXONE 0.4 MG/ML 1 ML VIAL IV PRN (17:23)
--- NOTE | 2018-02-06 17:26 | NM ---
EXAMINATION TYPE: NM pul vent and perfuse DATE OF EXAM: 02/06/2018 COMPARISON: Chest radiograph 01/28/1918 at 2:35 PM HISTORY: Dyspnea with clinical suspicion for pulmonary embolism. TECHNIQUE: Utilizing inhalation of 65.2 mCi Tc 99m DTPA aerosol and intravenous injection of 5.08 mC i of Tc 99m MAA, ventilation and perfusion images are acquired post injection in multiple projections . FINDINGS: Normal radiotracer distribution is noted in the lungs. There is no evidence of mismatched defects. IMPRESSION: Low probability for pulmonary embolism.
[2018-02-06] MEDS: methylPREDNISolone SOD SUCCI 125 MG/2 ML VIAL IV SCH ×2 (19:51→21:57)
[2018-02-06] MEDS ORDERED: NITROGLYCERIN SL TABS 0.4 MG TAB SUBLINGUAL PRN (20:07)
[2018-02-06] MEDS: NON-FORMULARY DRUG (Morphine Pain Pump 1 DOSE) INTRATHECA SCH (21:25)
[2018-02-06] MEDS: DOXEPIN 25 MG CAP PO SCH (21:34)
[2018-02-06] MEDS: guaiFENesin 600 MG TABLET.ER PO SCH (21:34)
[2018-02-06] MEDS: SENNOSIDES 8.6 MG TAB PO SCH (21:35)
[2018-02-06] MEDS: LORazepam 0.5 MG TAB PO SCH (21:35)
[2018-02-06] MEDS: ATORVASTATIN 20 MG TAB PO SCH (21:35)
[2018-02-06] MEDS: DONEPEZIL 10 MG TAB PO SCH (21:35)
[2018-02-06] MEDS: GABAPENTIN 400 MG CAP PO SCH (21:35)
[2018-02-06] MEDS: PANTOPRAZOLE 40 MG TABLET PO SCH (21:35)
[2018-02-06] MEDS: TAMSULOSIN 0.4 MG CAP.ER.24H PO SCH (21:35)
[2018-02-06] MEDS ORDERED: MELATONIN 3 MG TABLET PO PRN (21:49)
[2018-02-06] MEDS ORDERED: CALCIUM CARBONATE 500 MG CHEWABLE PO PRN (21:49)
[2018-02-06] MEDS ORDERED: ONDANSETRON 4 MG/2 ML VIAL IVP PRN (21:49)
[2018-02-06] MEDS ORDERED: MAGNESIUM HYDROXIDE 2,400 MG/10 ML CUP PO PRN (21:49)
[2018-02-06] MEDS ORDERED: LACTULOSE 20 GM/30 ML CUP PO PRN (21:49)
--- NOTE | 2018-02-06 22:48 | HP ---
HISTORY AND PHYSICAL DATE OF ADMISSION: 02/06/2018 DATE OF SERVICE: 02/06/2018. PRESENTING COMPLAINT: Shortness of breath. HISTORY OF PRESENTING COMPLAINT: This is a pleasant 82-year-old patient who follows with Dr. Elkins out of [place]. The patient's moisture tester is Dr. Diaz. Chronic stable medical conditions include GERD, hypertension, BPH, rheumatoid arthritis, on home oxygen 2 L, diverticulosis, restless legs syndrome, Alzheimer's dementia, intrathecal pain pump that was just adjusted, upgraded by Dr. Hilliard. The patient presented with 2 to 3 days increasing short of breath, wheezing. No cough. No fever, chills. Appetite had gone down. The patient also had felt a bit dizzy and lightheaded. No chest pain. No palpitations. In the ER, the patient underwent a V/Q scan is low probability for PE and admitted for the same. REVIEW OF SYSTEMS: CONSTITUTIONAL: Tired. HEENT: Decreased hearing. RESPIRATORY as above. CARDIOVASCULAR as above. GASTROINTESTINAL: Some heartburn. GENITOURINARY none. MUSCULOSKELETAL: Pain in different joints. DERMATOLOGICAL, HEMATOLOGIC, LYMPHATICS: None. PSYCHIATRY: Forgetful. Anxious. NEUROLOGICAL: Restless legs syndrome. PAST MEDICAL HISTORY: COPD, GERD, hyperlipidemia, hypertension, prostate disorder, rheumatoid arthritis, chronic hypoxic respiratory failure on 2 L oxygen at home. Chronic low back pain with a pain pump being followed by Dr. Hilliard, cataract left eye, right eye injury with vision loss, shingles, chronic sinus disease, migraines, diverticulosis, restless legs syndrome, BPH, right carpal tunnel. PAST SURGICAL HISTORY: Right lens implant, right foot toe surgery, left foot surgery, repair of left index finger, partial amputation, bilateral rotator cuff repair, pain pump being followed by Dr. Hilliard. PSYCH HISTORY: History of anxiety. SOCIAL HISTORY: The patient has helped out by his daughter often. Uses a cane and a walker. On home oxygen. The patient smoked for 11 years, stopped in 1962. No alcohol. FAMILY HISTORY: Cirrhosis of the liver from alcohol. HOME MEDICATIONS: 1. Bactrim DS 1 tablet p.o. q.12. 2. Requip 0.5 mg t.i.d. 3. Mucinex 1200 mg p.o. b.i.d. 4. Flomax 0.4 to 0.8 mg q.h.s. 5. Senokot 17.2 mg p.o. q.h.s. 6. Potassium 10 mEq a day. 7. Omeprazole 40 mg q.h.s. 8. Nitrostat 0.4 sublingual q.5 p.r.n. 9. Multivitamin 1 tablet p.o. daily. 10.Morphine pain pump 1 dose intrathecal continuous. 11.Mobic 15 mg p.o. daily. 12.Synthroid 125 mcg p.o. daily. 13.Ativan 0.5 mg p.o. t.i.d. 14.Imdur ER 60 mg p.o. daily. 15.DuoNeb q.i.d. p.r.n. 16.Neurontin 800 mg p.o. t.i.d. Lasix 20 mg p.o. daily. 17.Breo Ellipta 1 puff daily. 18.Flonase 1 spray each nostril daily. 19.Doxepin 50 mg q.h.s. 20.Aricept 10 mg p.o. q.h.s. 21.Cardia XT 120 mg p.o. daily. 22.Symbicort 2 puffs b.i.d. 23.Lipitor 20 mg q.h.s. 24.Ventolin 2.5 t.i.d. p.r.n. ALLERGIES: IV CONTRAST DYE AND PENICILLIN. PHYSICAL EXAMINATION: VITAL SIGNS: Vital signs in the ER, temperature 99.2, pulse 97, respiration 18, blood pressure 101/67, pulse ox 92 percent on 2 L. GENERAL APPEARANCE: Well built, BMI 37.5, sitting up, tired appearing, slightly short of breath. EYES: Pupils equal. CONJUNCTIVAE normal. HEENT: External appearance of nose and ears normal. Oral cavity normal. Decreased hearing. NECK: JVD unable to assess. Mass not palpable. RESPIRATORY: Effort increased. LUNGS: Decreased breath sounds. Prolonged expiration, wheezing. CARDIOVASCULAR: First and second sounds normal. No edema. ABDOMEN: Distended, soft. Liver and spleen not palpable. Healing shingles scar on the posteriorly scabbed over. LYMPHATICS: No lymph nodes palpable in the neck and axilla. PSYCHIATRY: Alert and oriented x3. Mood and affect slightly anxious. NEUROLOGICAL: Pupils equal. Cranial nerves grossly intact. Power and sensation grossly intact. INVESTIGATIONS: Labs reviewed in the context of the clinical picture. White count 4.2, hemoglobin 11.2, platelets 180. Potassium 4.5, BUN 16, creatinine 1.58. Creatinine was 1.13 on January 05, 2018. EKG tracing reviewed by me personally showed normal sinus rhythm. Chest x-ray film, personally reviewed by me, shows some cardiomegaly. No obvious infiltrate, arthritis of the spine. ASSESSMENT: 1. Acute renal failure probably prerenal. Patient does take Lasix at home. He is also on Mobic. Could be an element of acute tubular necrosis. The patient did present with dizziness and lightheaded. 2. Acute chronic obstructive pulmonary disease exacerbation in an ex-smoker. 3. Gastroesophageal reflux disease. 4. Essential hypertension. 5. Hyperlipidemia. 6. Benign prostatic hypertrophy. 7. Chronic rheumatoid arthritis. 8. Hypothyroid. 9. Chronic hypoxic respiratory failure from underlying chronic obstructive pulmonary disease. 10.Chronic diverticulosis colonic. 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 12.Restless legs syndrome. 13.Gait dysfunction uses a walker. 14.Chronic pain syndrome has intrathecal pain pump, follow Dr. Hilliard. PLAN: Patient's blood pressure on presentation was 101/67. The patient has got some IV fluids. V/Q scan was negative. The patient is started on bronchodilators, IV Solu- Medrol. Will DC patient's Lasix and patient's Mobic in view of the renal failure. Repeat electrolytes. Care was discussed with the patient. Questions were answered. Copy to Brittni. SARA / REGIS: [id number] /
[2018-02-06 22:53] LABS: Glucose,Whole Blood 200 mg/dL (75-99)
[2018-02-06] MEDS: methylPREDNISolone SOD SUCCI 40 MG/ML 1 ML VIAL IV SCH (22:54)
[2018-02-06] MEDS: INSULIN ASPART 100 UNIT/ML 1 ML 10 ML VIAL SQ SCH (22:54)
[2018-02-06] MEDS: LACTATED RINGERS 1,000 ML IV SCH (22:54)
[2018-02-06] MEDS: ENOXAPARIN 40 MG/0.4 ML SYRINGE SQ SCH (22:54)
[2018-02-07] MEDS: LEVOTHYROXINE 100 MCG TAB PO SCH (06:05)
[2018-02-07] MEDS: LEVOTHYROXINE 75 MCG TAB PO SCH (06:06)
[2018-02-07] MEDS: SYMBICORT 160-4.5 MCG INHALER INHALATION SCH ×2 (07:14→19:48)
[2018-02-07] MEDS: IPRATROPIUM-ALBUTEROL 3 ML NEB INHALATION PRN ×4 (07:14→19:48)
[2018-02-07 07:30] LABS: Glucose,Whole Blood 273 mg/dL (75-99)
[2018-02-07] MEDS ORDERED: NON-FORMULARY DRUG (Fluticasone/Vilanterol [Breo Ellipta 100-25 Mcg Inhaler] 1 PUFF) INHALATION SCH (08:00)
[2018-02-07] MEDS: INSULIN ASPART 100 UNIT/ML 1 ML 10 ML VIAL SQ SCH ×4 (08:15→21:19)
[2018-02-07] MEDS: methylPREDNISolone SOD SUCCI 40 MG/ML 1 ML VIAL IV SCH ×3 (08:16→23:00)
[2018-02-07] MEDS: LACTATED RINGERS 1,000 ML IV SCH ×2 (08:16→23:01)
[2018-02-07] MEDS: ISOSORBIDE MONONITRATE ER 60 MG TAB.ER.24H PO SCH (08:18)
[2018-02-07] MEDS: LORazepam 0.5 MG TAB PO SCH ×3 (08:18→21:19)
[2018-02-07] MEDS: POTASSIUM CHLORIDE ER 10 MEQ TAB.ER.PRT PO SCH (08:18)
[2018-02-07] MEDS: guaiFENesin 600 MG TABLET.ER PO SCH ×2 (08:18→20:25)
[2018-02-07] MEDS: DILTIAZEM CD 120 MG CAP.ER.24H PO SCH (08:19)
[2018-02-07] MEDS: GABAPENTIN 400 MG CAP PO SCH ×3 (08:19→21:19)
[2018-02-07] MEDS: MULTIVITAMINS, THERA 1 EACH TAB PO SCH (08:20)
[2018-02-07] MEDS ORDERED: MELOXICAM 7.5 MG TAB PO SCH (09:00)
[2018-02-07] MEDS ORDERED: FUROSEMIDE 20 MG TAB PO SCH (09:00)
[2018-02-07 11:14] LABS: Basophils % (A) 0 %; Eosinophils % (A) 0 %; HCT 34.2 % (39.0-53.0); HGB 11.4 gm/dL (13.0-17.5); Lymphocytes # (A) 0.7 k/uL (1.0-4.8); Lymphocytes % (A) 11 %; MCH 32.6 pg (25.0-35.0); MCHC 33.3 g/dL (31.0-37.0); MCV 98.1 fL (80.0-100.0); Mean Platelet Volume 6.7; Monocytes # (A) 0.1 k/uL (0-1.0); Monocytes % (A) 2 %; Neutrophils # (A) 5.7 k/uL (1.3-7.7); Neutrophils % (A) 86 %; Platelet Count 180 k/uL (150-450); RBC 3.49 m/uL (4.30-5.90); RDW 14.8 % (11.5-15.5); WBC 6.6 k/uL (3.8-10.6)
[2018-02-07 11:25] LABS: Glucose,Whole Blood 181 mg/dL (75-99)
[2018-02-07 11:33] LABS: Albumin 3.1 g/dL (3.5-5.0); Calcium 8.7 mg/dL (8.4-10.2); Potassium 4.4 mmol/L (3.5-5.1); Total Bilirubin 0.3 mg/dL (0.2-1.3); Total Protein 5.6 g/dL (6.3-8.2)
[2018-02-07] MEDS: TAMSULOSIN 0.4 MG CAP.ER.24H PO SCH (16:47)
[2018-02-07 17:04] LABS: Glucose,Whole Blood 174 mg/dL (75-99)
[2018-02-07] MEDS: NON-FORMULARY DRUG (Morphine Pain Pump 1 DOSE) INTRATHECA SCH (20:21)
[2018-02-07] MEDS: ENOXAPARIN 40 MG/0.4 ML SYRINGE SQ SCH (20:24)
[2018-02-07] MEDS: PANTOPRAZOLE 40 MG TABLET PO SCH (20:25)
[2018-02-07] MEDS: ATORVASTATIN 20 MG TAB PO SCH (20:25)
[2018-02-07] MEDS: SENNOSIDES 8.6 MG TAB PO SCH (20:25)
[2018-02-07] MEDS: DOXEPIN 25 MG CAP PO SCH (20:25)
[2018-02-07] MEDS: DONEPEZIL 10 MG TAB PO SCH (20:26)
--- NOTE | 2018-02-07 20:46 | PN ---
PROGRESS NOTE DATE OF SERVICE: 02/07/18 PRESENTING COMPLAINT: Short of breath. INTERVAL HISTORY: This patient presented with acute dizziness from acute renal failure and chronic obstructive pulmonary disease exacerbation. Had some wheezing today. Has been tolerating his diet. Slight cough. No sputum production. No fever. No chills. REVIEW OF SYSTEMS: Done for constitutional, cardiovascular, GI, pulmonary; relevant findings as above. CURRENT MEDICATIONS: Reviewed that include IV Solu-Medrol, DuoNeb. PHYSICAL EXAMINATION: Temperature 98.1, pulse 104, respiratory 20, blood pressure 122/65, pulse ox 94 percent on 2 L. GENERAL APPEARANCE: Sitting up, awake, slight shortness of breath. EYES: Pupils equal. Conjunctivae normal. HEENT: External appearance of nose and ears normal. Oral cavity normal. Decreased hearing. NECK: JVD unable to assess. Mass not palpable. RESPIRATORY: Effort increased. Lungs, decreased breath sounds. Prolonged expiration wheezing. CARDIOVASCULAR: First and second sounds. No edema. ABDOMEN: Distended, soft. Liver and spleen not palpable. PSYCHIATRY: Alert, oriented x3. Mood and affect slightly anxious. INVESTIGATIONS: White count 6.6, hemoglobin 11.4, potassium 4.4, BUN 20, creatinine 1.29. ASSESSMENT: 1. Acute renal failure probably prerenal with some improvement. The patient has been taken off his Mobic and Lasix. 2. Acute chronic obstructive pulmonary disease exacerbation an ex-smoker, slow to respond. 3. Gastroesophageal reflux disease. 4. Essential hypertension. 5. Hyperlipidemia. 6. Benign prostatic hypertrophy. 7. Chronic rheumatoid arthritis. 8. Hypothyroid. 9. Chronic hypoxic respiratory failure from underlying chronic obstructive pulmonary disease. 10.Chronic diverticulosis colonic. 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 12.Restless legs syndrome. 13.Gait dysfunction uses a walker. 14.Chronic pain syndrome, has intrathecal pain pump being followed by Dr. Hilliard. PLAN: Continue current medication and treatment plan including IV steroids, IV fluids. Repeat a BMP in the morning. Care was discussed with the patient and daughter at the bedside. Follow. MMODL / IJN: [id number] /
[2018-02-07 22:43] LABS: Glucose,Whole Blood 143 mg/dL (75-99)
[2018-02-08] MEDS: LEVOTHYROXINE 75 MCG TAB PO SCH (06:10)
[2018-02-08] MEDS: LEVOTHYROXINE 100 MCG TAB PO SCH (06:10)
[2018-02-08] MEDS: IPRATROPIUM-ALBUTEROL 3 ML NEB INHALATION PRN ×4 (07:19→19:15)
[2018-02-08] MEDS: SYMBICORT 160-4.5 MCG INHALER INHALATION SCH ×2 (07:20→19:15)
[2018-02-08 07:26] LABS: Glucose,Whole Blood 181 mg/dL (75-99)
[2018-02-08] MEDS: INSULIN ASPART 100 UNIT/ML 1 ML 10 ML VIAL SQ SCH ×4 (07:49→21:21)
[2018-02-08] MEDS: methylPREDNISolone SOD SUCCI 40 MG/ML 1 ML VIAL IV SCH ×3 (07:49→23:32)
[2018-02-08] MEDS: guaiFENesin 600 MG TABLET.ER PO SCH ×2 (07:50→21:23)
[2018-02-08] MEDS: GABAPENTIN 400 MG CAP PO SCH ×3 (07:50→21:22)
[2018-02-08] MEDS: DILTIAZEM CD 120 MG CAP.ER.24H PO SCH (07:50)
[2018-02-08] MEDS: LORazepam 0.5 MG TAB PO SCH ×3 (07:51→21:23)
[2018-02-08] MEDS: ISOSORBIDE MONONITRATE ER 60 MG TAB.ER.24H PO SCH (07:51)
[2018-02-08] MEDS: POTASSIUM CHLORIDE ER 10 MEQ TAB.ER.PRT PO SCH (07:51)
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
[2018-02-08 10:58] LABS: Calcium 8.9 mg/dL (8.4-10.2); Potassium 4.3 mmol/L (3.5-5.1)
[2018-02-08 12:34] LABS: Glucose,Whole Blood 182 mg/dL (75-99)
[2018-02-08] MEDS: MULTIVITAMINS, THERA 1 EACH TAB PO SCH (13:51)
[2018-02-08] MEDS: LACTATED RINGERS 1,000 ML IV SCH (16:03)
[2018-02-08] MEDS: TAMSULOSIN 0.4 MG CAP.ER.24H PO SCH (17:06)
[2018-02-08 17:22] LABS: Glucose,Whole Blood 175 mg/dL (75-99)
[2018-02-08] MEDS: NON-FORMULARY DRUG (Morphine Pain Pump 1 DOSE) INTRATHECA SCH (20:10)
[2018-02-08 20:53] LABS: Glucose,Whole Blood 196 mg/dL (75-99)
[2018-02-08] MEDS: ENOXAPARIN 40 MG/0.4 ML SYRINGE SQ SCH (21:21)
[2018-02-08] MEDS: ATORVASTATIN 20 MG TAB PO SCH (21:22)
[2018-02-08] MEDS: PANTOPRAZOLE 40 MG TABLET PO SCH (21:22)
[2018-02-08] MEDS: DOXEPIN 25 MG CAP PO SCH (21:22)
[2018-02-08] MEDS: DONEPEZIL 10 MG TAB PO SCH (21:23)
[2018-02-08] MEDS: SENNOSIDES 8.6 MG TAB PO SCH (21:23)
--- NOTE | 2018-02-08 23:11 | PN ---
PROGRESS NOTE DATE OF SERVICE: 02/08/2018 PRESENTING COMPLAINT: Short of breath. INTERVAL HISTORY: Patient presented with acute dizziness from acute renal failure, was put on IV fluids. Patient also had COPD exacerbation. Wheezing and shortness of breath are better. Tolerating a diet. Had a bowel movement. More restful next. REVIEW OF SYSTEMS: Done for constitutional, cardiovascular, GI, pulmonary; relevant findings as above. CURRENT MEDICATIONS: Current medications are reviewed. They include IV Solu-Medrol, DuoNeb, IV fluids at 125 mL/hour. PHYSICAL EXAMINATION: Temperature 98.1, pulse 110, respiration 18, blood pressure 103/60, pulse ox 94% on room air. GENERAL APPEARANCE: Lying in bed. More restful. EYES: Pupils equal. Conjunctivae normal. HEENT: External appearance of nose and ears normal. Oral cavity normal. Decreased hearing. NECK: JVD unable to assess. Mass not palpable. RESPIRATORY: Effort increased. LUNGS: Decreased breath sounds. Decreased wheezing. CARDIOVASCULAR: First and second sounds normal. No edema. ABDOMEN: Soft, non-tender. Liver and spleen not palpable. PSYCHIATRY: Alert and oriented x3. Mood and affect normal. INVESTIGATIONS: Creatinine 1.42. Accu-Cheks are noted. ASSESSMENT: 1. Acute renal failure, probably prerenal, with slow improvement. Patient has been taken off his Mobic and Lasix. 2. Acute chronic obstructive pulmonary disease exacerbation in an ex-smoker. 3. Gastroesophageal reflux disease. 4. Essential hypertension. 5. Hyperlipidemia. 6. Benign prostatic hypertrophy. 7. Chronic rheumatoid arthritis. 8. Hypothyroid. 9. Chronic hypoxic respiratory failure from underlying chronic obstructive pulmonary disease. 10.Chronic colonic diverticulosis. 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 12.Restless legs syndrome. 13.Gait dysfunction. Uses a walker. 14.Chronic pain syndrome. Has an intrathecal pain pump, followed by Dr. Hilliard. PLAN: Continue with IV fluids, IV steroids, bronchodilators. Follow with Pulmonary. Care was discussed with the patient. MMODL / IJN: [id number] /
[2018-02-09] MEDS: LEVOTHYROXINE 100 MCG TAB PO SCH (06:18)
[2018-02-09] MEDS: LACTATED RINGERS 1,000 ML IV SCH ×2 (06:19→18:09)
[2018-02-09] MEDS: LEVOTHYROXINE 75 MCG TAB PO SCH (06:20)
[2018-02-09 07:14] LABS: Glucose,Whole Blood 206 mg/dL (75-99)
[2018-02-09] MEDS: SYMBICORT 160-4.5 MCG INHALER INHALATION SCH ×2 (08:09→20:22)
[2018-02-09] MEDS: IPRATROPIUM-ALBUTEROL 3 ML NEB INHALATION PRN ×4 (08:09→20:22)
[2018-02-09] MEDS: methylPREDNISolone SOD SUCCI 40 MG/ML 1 ML VIAL IV SCH ×3 (09:00→21:05)
[2018-02-09] MEDS: GABAPENTIN 400 MG CAP PO SCH ×3 (09:01→21:57)
[2018-02-09] MEDS: DILTIAZEM CD 120 MG CAP.ER.24H PO SCH (09:01)
[2018-02-09] MEDS: LORazepam 0.5 MG TAB PO SCH ×3 (09:01→21:57)
[2018-02-09] MEDS: POTASSIUM CHLORIDE ER 10 MEQ TAB.ER.PRT PO SCH (09:01)
[2018-02-09] MEDS: MULTIVITAMINS, THERA 1 EACH TAB PO SCH (09:01)
[2018-02-09] MEDS: ISOSORBIDE MONONITRATE ER 60 MG TAB.ER.24H PO SCH (09:01)
[2018-02-09] MEDS: guaiFENesin 600 MG TABLET.ER PO SCH ×2 (09:01→21:02)
[2018-02-09] MEDS: INSULIN ASPART 100 UNIT/ML 1 ML 10 ML VIAL SQ SCH ×4 (09:13→21:56)
[2018-02-09 09:41] LABS: Calcium 8.8 mg/dL (8.4-10.2); Potassium 4.6 mmol/L (3.5-5.1)
[2018-02-09 12:49] LABS: Glucose,Whole Blood 162 mg/dL (75-99)
--- NOTE | 2018-02-09 15:19 | P.PN ---
Subjective Progress Note Date: 02/09/18 Principal diagnosis: Dizziness, lightheadedness, dehydration, acute renal failure, acute exacerbation of COPD This a very pleasant 82-year-old gentleman who follows with Dr. Elkins as his primary care physician. He has a history of hypertension, hyperlipidemia, rheumatoid arthritis, hypothyroidism, benign prosthetic hypertrophy, chronic back pain with pain pump in place, diverticulosis, restless leg syndrome, migraines, chronic sinus disease. He also has a history of chronic obstructive pulmonary disease and follows with Dr. Diaz in our office for the same. He has a history of smoking. His FEV1 value 73% of predicted. He is maintained on Symbicort and albuterol. He does have home O2 that he wears mainly at night at 2 L/m per nasal cannula. The patient had just been discharged from here on 01/12/2008. At that time he had a CT angiogram that ruled out pulmonary embolism. There is patchy atelectasis at the lung bases. Last bronchoscopy was in June 2017. Negative for malignancy. He presented here to the emergency room again 02/06/2018 via EMS after having complaints of dizziness and shortness of breath. Chest x-ray revealed no acute pulmonary process. VQ scan revealed low probability for pulmonary embolism. He is seen today in consultation on the regular medical floor. He is currently resting comfortably in bed. He is awake and alert in no acute distress. He is currently off his oxygen and maintaining O2 saturations in the mid 90s. He's been afebrile. Hemodynamically stable. White count 6.6. Hemoglobin 11.4. Creatinine 1.29. He has been initiated on DuoNeb inhalations, Symbicort, IV Solu-Medrol. He is breathing easier today as compared to yesterday. He denies any worsening shortness of breath, cough or congestion. No chest pain, palpitations, lightheadedness or dizziness. On 02/09/2018 and in follow-up on medical surgical floor. He was able to get up and ambulate, take a shower, breathing a bit better today, still has some residual chest tightness, but is improving. Lung sounds are positive for a few end expiratory wheezes, room air pulse ox is 94%, patient before meals afebrile , no fever no chills, hemodynamically stable. Today's labs were reviewed, BNP was done, BUN is 32, creatinine is 1.31, slight improvement in his renal function, patient is on IV was, it 0.9 at 75 ML per hour. Patient is on nebulized bronchodilators, Symbicort, IV steroids, and he is making improvement. Increase activity as tolerated, anticipate further improvement, and possible discharge in the next 24-48 hours. Objective - Vital Signs Vital signs: Vital Signs Temp 97.7 F 02/09/18 14:40 Pulse 110 H 02/09/18 14:40 Resp 16 02/09/18 14:40 BP 139/78 02/09/18 14:40 Pulse Ox 94 L 02/09/18 14:40 Intake & Output 02/08/18 02/09/18 02/09/18 18:59 06:59 18:59 Intake Total 1050 Balance 1050 Intake: Oral 1050 Other: Voiding Method Toilet # Voids 3 2 2 # Bowel Movements 1 - Exam - Constitutional General appearance: cooperative, morbidly obese, no acute distress - EENT Eyes: EOMI, PERRLA ENT: hard of hearing Ears: bilateral: normal - Neck Neck: normal ROM Carotids: bilateral: upstroke normal Thyroid: bilateral: normal size - Respiratory Respiratory: bilateral: CTA - Cardiovascular Rhythm: regular Heart sounds: normal: S1, S2 - Gastrointestinal General gastrointestinal: normal bowel sounds - Genitourinary Male genitourinary: enlarged prostate - Integumentary Integumentary: normal turgor - Neurologic Neurologic: CNII-XII intact - Musculoskeletal Musculoskeletal: generalized weakness - Psychiatric Psychiatric: A&O x's 3, appropriate affect, intact judgment & insight - Labs CBC & Chem 7: 02/07/18 10:44 02/09/18 08:58 Labs: Abnormal Lab Results - Last 24 Hours (Table) 02/08/18 02/08/18 02/09/18 Range/Units 17:01 20:52 07:07 Chloride (98-107) mmol/L BUN (9-20) mg/dL Creatinine (0.66-1.25) mg/dL Glucose (74-99) mg/dL POC Glucose (mg/dL) 175 H 196 H 206 H (75-99) mg/dL 02/09/18 02/09/18 Range/Units 08:58 12:45 Chloride 110 H (98-107) mmol/L BUN 32 H (9-20) mg/dL Creatinine 1.31 H (0.66-1.25) mg/dL Glucose 210 H (74-99) mg/dL POC Glucose (mg/dL) 162 H (75-99) mg/dL Assessment and Plan Plan: #1 Dizziness with lightheadedness of unclear etiology possibly a component of dehydration based on the acute renal failure, maintained on diuretics in the outpatient setting, this has improved with IV fluids #2 Acute renal failure secondary to suspected dehydration, the patient is on diuretics and anti-inflammatories in the outpatient setting, improving #3 Acute exacerbation of chronic obstructive pulmonary disease, mild. FEV1 value 73% of predicted. #4 Acute on chronic hypoxic respiratory failure in a patient utilizing oxygen in the outpatient setting mainly at night at 2 L/m per nasal cannula. #5 Dementia. #6 Hypertension. #7 Hypothyroidism. #8 Benign prostatic hypertrophy. #9 Chronic pain syndrome utilizing a pain pump. #10 Gastric esophageal reflux disease. #11 Rheumatoid arthritis. 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 #13 Diverticulosis. Plan: Continue current medical treatment, continue IV steroids, nebulized bronchodilators, Symbicort. Patient is breathing easier today, no chest pain, no chest congestion, palpitations. Renal profile is improving with IV hydration. Increase activity as tolerated, chest x-ray and VQ scan were negative for any acute pulmonary process. Despite further improvement, and possible discharge in next 24-48 hours. I performed a history & physical examination of the patient and discussed their management with my nurse practitioner, Marta Herrera. I reviewed the nurse practitioner's note and agree with the documented findings and plan of care. Lung sounds are positive for a few exp wheezes. The findings and the impression was discussed with the patient. I attest to the documentation by the nurse practitioner. Time with Patient: Less than 30
[2018-02-09 17:46] LABS: Glucose,Whole Blood 242 mg/dL (75-99)
[2018-02-09] MEDS: TAMSULOSIN 0.4 MG CAP.ER.24H PO SCH (18:10)
[2018-02-09] MEDS: DONEPEZIL 10 MG TAB PO SCH (21:02)
[2018-02-09] MEDS: ATORVASTATIN 20 MG TAB PO SCH (21:02)
[2018-02-09] MEDS: PANTOPRAZOLE 40 MG TABLET PO SCH (21:02)
[2018-02-09] MEDS: DOXEPIN 25 MG CAP PO SCH (21:02)
[2018-02-09] MEDS: SENNOSIDES 8.6 MG TAB PO SCH (21:02)
[2018-02-09 21:05] LABS: Glucose,Whole Blood 212 mg/dL (75-99)
[2018-02-09] MEDS: ENOXAPARIN 40 MG/0.4 ML SYRINGE SQ SCH (21:05)
[2018-02-09] MEDS: NON-FORMULARY DRUG (Morphine Pain Pump 1 DOSE) INTRATHECA SCH (21:50)
--- NOTE | 2018-02-09 22:48 | PN ---
PROGRESS NOTE DATE OF SERVICE: 02/09/2018. PRESENTING COMPLAINT: Tired. INTERVAL HISTORY: This patient presented with acute dizziness from acute renal failure, responded well to IV fluids, also with COPD exacerbation which is improving. Tolerating a diet, had a bowel movement. The patient's daughter at the bedside. REVIEW OF SYSTEMS: Done for constitutional, cardiovascular, GI, pulmonary; relevant findings as above. CURRENT MEDICATIONS: Include DuoNeb, IV fluids, IV Solu-Medrol. PHYSICAL EXAMINATION: VITAL SIGNS: Temperature 97.7, pulse 110, respirations 16, blood pressure 139/78, pulse ox 94% on room air. GENERAL APPEARANCE: Lying in bed more comfortable. EYES: Pupils are equal. Conjunctivae normal. HEENT: External appearance of nose and ears normal. Oral cavity normal. Decreased hearing. NECK: JVD not raised. Mass not palpable. RESPIRATORY: Effort increased. LUNGS: Decreased breath sounds. Improved wheezing. CARDIOVASCULAR: 1st and 2nd sounds normal. No edema. ABDOMEN: Soft, nontender. Liver and spleen not palpable. PSYCHIATRY: Alert and oriented x3. Mood and affect normal. INVESTIGATIONS: BUN 32, creatinine 1.31. Accu-Cheks are noted. ASSESSMENT: 1. Acute renal failure probably prerenal. The patient has been off his Mobic and Lasix. 2. Acute chronic obstructive pulmonary disease exacerbation in an ex-smoker. 3. Gastroesophageal reflux disease. 4. Essential hypertension. 5. Hyperlipidemia. 6. Benign prostatic hypertrophy. 7. Chronic rheumatoid arthritis. 8. Hypothyroid. 9. Chronic hypoxic respiratory failure from underlying chronic obstructive pulmonary disease. 10.Chronic colonic diverticulosis. 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 12.Restless legs syndrome. 13.Gait dysfunction uses a walker. 14.Chronic pain syndrome with intrathecal pain pump followed by Dr. Hilliard. PLAN: Patient doing better. IV steroids will be further cut back. Care was discussed with the patient and daughter at the bedside. Repeat electrolytes in the morning. Hopefully can be discharged home tomorrow. MMODL / IJN: [id number] /
[2018-02-10 06:10] VITALS: BP 149/78; RESP 16; TEMP 98.8
[2018-02-10] MEDS: LACTATED RINGERS 1,000 ML IV SCH (06:50)
[2018-02-10] MEDS: LEVOTHYROXINE 100 MCG TAB PO SCH (06:50)
[2018-02-10] MEDS: LEVOTHYROXINE 75 MCG TAB PO SCH (06:51)
[2018-02-10] MEDS: IPRATROPIUM-ALBUTEROL 3 ML NEB INHALATION PRN ×2 (07:18→11:03)
[2018-02-10] MEDS: SYMBICORT 160-4.5 MCG INHALER INHALATION SCH (07:18)
[2018-02-10 07:23] LABS: Glucose,Whole Blood 170 mg/dL (75-99)
[2018-02-10 08:43] LABS: Potassium 4.7 mmol/L (3.5-5.1)
[2018-02-10] MEDS: GABAPENTIN 400 MG CAP PO SCH (09:52)
[2018-02-10] MEDS: INSULIN ASPART 100 UNIT/ML 1 ML 10 ML VIAL SQ SCH ×2 (09:52→12:10)
[2018-02-10] MEDS: LORazepam 0.5 MG TAB PO SCH (09:52)
[2018-02-10] MEDS: guaiFENesin 600 MG TABLET.ER PO SCH (09:52)
[2018-02-10] MEDS: methylPREDNISolone SOD SUCCI 40 MG/ML 1 ML VIAL IV SCH (09:52)
[2018-02-10] MEDS: DILTIAZEM CD 120 MG CAP.ER.24H PO SCH (09:53)
[2018-02-10] MEDS: POTASSIUM CHLORIDE ER 10 MEQ TAB.ER.PRT PO SCH (09:53)
[2018-02-10] MEDS: ISOSORBIDE MONONITRATE ER 60 MG TAB.ER.24H PO SCH (09:53)
[2018-02-10 11:12] VITALS: PULSE 82
[2018-02-10] MEDS: MULTIVITAMINS, THERA 1 EACH TAB PO SCH (12:03)
[2018-02-10 12:11] LABS: Glucose,Whole Blood 230 mg/dL (75-99)
--- NOTE | 2018-02-10 12:17 | P.PN ---
Subjective Progress Note Date: 02/10/18 Principal diagnosis: Dizziness, lightheadedness, dehydration, acute renal failure, acute exacerbation of COPD This a very pleasant 82-year-old gentleman who follows with Dr. Elkins as his primary care physician. He has a history of hypertension, hyperlipidemia, rheumatoid arthritis, hypothyroidism, benign prosthetic hypertrophy, chronic back pain with pain pump in place, diverticulosis, restless leg syndrome, migraines, chronic sinus disease. He also has a history of chronic obstructive pulmonary disease and follows with Dr. Diaz in our office for the same. He has a history of smoking. His FEV1 value 73% of predicted. He is maintained on Symbicort and albuterol. He does have home O2 that he wears mainly at night at 2 L/m per nasal cannula. The patient had just been discharged from here on 01/12/2008. At that time he had a CT angiogram that ruled out pulmonary embolism. There is patchy atelectasis at the lung bases. Last bronchoscopy was in June 2017. Negative for malignancy. He presented here to the emergency room again 02/06/2018 via EMS after having complaints of dizziness and shortness of breath. Chest x-ray revealed no acute pulmonary process. VQ scan revealed low probability for pulmonary embolism. He is seen today in consultation on the regular medical floor. He is currently resting comfortably in bed. He is awake and alert in no acute distress. He is currently off his oxygen and maintaining O2 saturations in the mid 90s. He's been afebrile. Hemodynamically stable. White count 6.6. Hemoglobin 11.4. Creatinine 1.29. He has been initiated on DuoNeb inhalations, Symbicort, IV Solu-Medrol. He is breathing easier today as compared to yesterday. He denies any worsening shortness of breath, cough or congestion. No chest pain, palpitations, lightheadedness or dizziness. On 02/09/2018 and in follow-up on medical surgical floor. He was able to get up and ambulate, take a shower, breathing a bit better today, still has some residual chest tightness, but is improving. Lung sounds are positive for a few end expiratory wheezes, room air pulse ox is 94%, patient before meals afebrile , no fever no chills, hemodynamically stable. Today's labs were reviewed, BNP was done, BUN is 32, creatinine is 1.31, slight improvement in his renal function, patient is on IV was, it 0.9 at 75 ML per hour. Patient is on nebulized bronchodilators, Symbicort, IV steroids, and he is making improvement. Increase activity as tolerated, anticipate further improvement, and possible discharge in the next 24-48 hours. On 02/10/2018 patient seen in follow-up. Doing well, sitting up in the chair, in no acute distress, lung sounds are diminished, no significant wheezes or rhonchi noted on today's exam. Patient has been ambulating within the room, tolerating activity fairly well, no increased shortness of breath, cough or congestion. Room air pulse ox is 94%, patient is afebrile, hemodynamically stable. Today's labs have been reviewed, and patient's renal profile continues to improve, B1 is 29, creatinine is 1.14, chloride is 109, the rest of the electrolytes are within normal limits. No other significant events overnight, patient is stable for discharge home today from pulmonary perspective. Objective - Vital Signs Vital signs: Vital Signs Temp 98.8 F 02/10/18 06:09 Pulse 82 02/10/18 11:12 Resp 16 02/10/18 06:09 BP 149/78 02/10/18 06:09 Pulse Ox 94 L 02/10/18 06:09 Intake & Output 02/09/18 02/10/18 02/10/18 18:59 06:59 18:59 Intake Total 1050 Balance 1050 Intake: Oral 1050 Other: Voiding Method Toilet Toilet # Voids 2 2 - Exam - Constitutional General appearance: cooperative, morbidly obese, no acute distress - EENT Eyes: EOMI, PERRLA ENT: hard of hearing Ears: bilateral: normal - Neck Neck: normal ROM Carotids: bilateral: upstroke normal Thyroid: bilateral: normal size - Respiratory Respiratory: bilateral: CTA, diminished - Cardiovascular Rhythm: regular Heart sounds: normal: S1, S2 - Gastrointestinal General gastrointestinal: normal bowel sounds - Genitourinary Male genitourinary: enlarged prostate - Integumentary Integumentary: normal turgor - Neurologic Neurologic: CNII-XII intact - Musculoskeletal Musculoskeletal: generalized weakness - Psychiatric Psychiatric: A&O x's 3, appropriate affect, intact judgment & insight - Labs CBC & Chem 7: 02/07/18 10:44 02/10/18 07:56 Labs: Abnormal Lab Results - Last 24 Hours (Table) 02/09/18 02/09/18 02/09/18 Range/Units 12:45 17:44 21:03 Chloride (98-107) mmol/L BUN (9-20) mg/dL Glucose (74-99) mg/dL POC Glucose (mg/dL) 162 H 242 H 212 H (75-99) mg/dL 02/10/18 02/10/18 02/10/18 Range/Units 07:19 07:56 12:07 Chloride 109 H (98-107) mmol/L BUN 29 H (9-20) mg/dL Glucose 170 H (74-99) mg/dL POC Glucose (mg/dL) 170 H 230 H (75-99) mg/dL Assessment and Plan Plan: #1 Dizziness with lightheadedness of unclear etiology possibly a component of dehydration based on the acute renal failure, maintained on diuretics in the outpatient setting, this has improved with IV fluids #2 Acute renal failure secondary to suspected dehydration, the patient is on diuretics and anti-inflammatories in the outpatient setting, resolved #3 Acute exacerbation of chronic obstructive pulmonary disease, mild. FEV1 value 73% of predicted. #4 Acute on chronic hypoxic respiratory failure in a patient utilizing oxygen in the outpatient setting mainly at night at 2 L/m per nasal cannula. #5 Dementia. #6 Hypertension. #7 Hypothyroidism. #8 Benign prostatic hypertrophy. #9 Chronic pain syndrome utilizing a pain pump. #10 Gastric esophageal reflux disease. #11 Rheumatoid arthritis. 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 #13 Diverticulosis. Plan: No acute events overnight, patient is calm and comfortable, no worsening shortness of breath, no fever no chills, no increased cough or chest congestion. Patient is tolerating ambulation, renal profile is improving. His ponded well to medical treatment, from pulmonary perspective patient is stable for discharge home today. Follow up with Dr. Huitron in the office in 7-10 days. I performed a history & physical examination of the patient and discussed their management with my nurse practitioner, Marta Herrera. I reviewed the nurse practitioner's note and agree with the documented findings and plan of care. Lung sounds are positive for a few exp wheezes. The findings and the impression was discussed with the patient. I attest to the documentation by the nurse practitioner. Time with Patient: Less than 30
--- NOTE | 2018-02-11 05:22 | DS ---
DISCHARGE SUMMARY DATE OF ADMISSION: February 07, 2018. DATE OF DISCHARGE: 02/10/2018. FINAL DIAGNOSES: 1. Acute renal failure, prerenal. The patient is on Mobic and Lasix. 2. Acute chronic obstructive pulmonary disease exacerbation in an ex-smoker, present on admission. 3. Gastroesophageal reflux disease. 4. Essential hypertension. 5. Hyperlipidemia. 6. Benign prostatic hypertrophy. 7. Chronic rheumatoid arthritis. 8. Hypothyroid. 9. Chronic hypoxic respiratory failure from underlying chronic obstructive pulmonary disease. 10.Chronic colonic diverticulosis. 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 12.Restless legs syndrome. 13.Gait dysfunction uses a walker. 14.Chronic pain syndrome with intrathecal pain pump being followed by Dr. Hilliard. CONSULTATION: Dr. Diaz from Pulmonary. HOSPITAL COURSE: This patient weak, tired, short of breath and also in acute renal failure. Creatinine was 1.58, by the time of discharge had come down to 1.14. Patient's Lasix Lasix and Bactrim was discontinued. The patient was treated with bronchodilators and steroids to which he responded well. Doing much better at the time of discharge. Care was discussed with the patient. Questions were answered. PHYSICAL EXAMINATION: Temperature 98.8, pulse 109, respirations 16, blood pressure 149/78, pulse ox 94 percent on room air. Lungs: Mild wheezing, lying in bed. ABDOMEN: Soft, nontender. INVESTIGATIONS: Potassium 4.7, BUN 29, creatinine 1.14. DISCHARGE MEDICATION: 1. Lipitor 20 mg q.h.s. 2. Aricept 10 mg q.h.s. 3. Imdur ER 60 mg daily. 4. Synthroid 175 mcg p.o. daily. 5. Omeprazole 40 mg q.h.s. 6. Flomax 0.4 to 0.8 mg p.o. q.h.s. 7. Requip 0.5 mg p.o. t.i.d. 8. Morphine pain pump intrathecal. 9. Senokot 17.2 mg p.o. q.h.s. 10.Multivitamin L gummies 1 tablet p.o. daily. 11.Nitrostat 0.4 sublingual q.5 p.r.n. 12.Symbicort 160/4.5, 2 puffs b.i.d. 13.Ventolin nebulizer 2.5 t.i.d. p.r.n. 14.Cardia XT 120 mg p.o. daily. 15. 50 mg p.o. q.h.s. 16.Flonase nasal spray 1 spray each nostril daily. 17.DuoNeb q.i.d. p.r.n. 18.Neurontin 800 mg p.o. t.i.d. 19.Breo Ellipta 100/25 1 puff daily. 20.Ativan 0.5 p.o. t.i.d. 21.Mobic 15 mg p.o. daily. 22.Mucinex 1200 mg p.o. b.i.d. 23.Prednisone taper. FOLLOW UP: Dr. Fly Elkins in [place] on 02/11/2018. Follow up with Dr. Pepe in 1 week. Home oxygen to continue. The patient's Lasix was discontinued. The patient also put on a fluid restriction of 2000 mL a day. Copy to Dr. Elkins. DARVINL / ABUNDION: [id number] /
== END 2018-02-10 13:20 | disposition home or self-care (01) | DRG 682 ==
LOC: EC 13:15 → 4MS4W 18:02 → OBSVTOIN 02-07 17:50
PROVIDERS: ADMIT Hospitalist; ATTEND Hospitalist
DX: N17.9 Acute kidney failure, unspecified (principal); J96.21 Acute and chronic respiratory failure with hypoxia; J44.1 Chronic obstructive pulmonary disease with (acute) exacerbation; J98.11 Atelectasis; E03.9 Hypothyroidism, unspecified; E78.5 Hyperlipidemia, unspecified; E86.0 Dehydration; F02.80 Dementia in other diseases classified elsewhere, unspecified severity, without behavioral disturbance, psychotic disturbance, mood disturbance, and anxiety; G25.81 Restless legs syndrome; G30.1 Alzheimer's disease with late onset; G89.4 Chronic pain syndrome; I10 Essential (primary) hypertension; K21.9 Gastro-esophageal reflux disease without esophagitis; K57.30 Diverticulosis of large intestine without perforation or abscess without bleeding; M06.9 Rheumatoid arthritis, unspecified; N40.0 Benign prostatic hyperplasia without lower urinary tract symptoms; F41.9 Anxiety disorder, unspecified; G43.909 Migraine, unspecified, not intractable, without status migrainosus; H26.9 Unspecified cataract; M54.5 Low back pain; R26.9 Unspecified abnormalities of gait and mobility; E66.01 Morbid (severe) obesity due to excess calories; Z68.37 Body mass index [BMI] 37.0-37.9, adult; Z79.1 Long term (current) use of non-steroidal anti-inflammatories (NSAID); Z79.51 Long term (current) use of inhaled steroids; Z79.899 Other long term (current) drug therapy; Z79.890 Hormone replacement therapy; Z87.891 Personal history of nicotine dependence; Z86.73 Personal history of transient ischemic attack (TIA), and cerebral infarction without residual deficits; Z88.0 Allergy status to penicillin; Z87.01 Personal history of pneumonia (recurrent); Z91.041 Radiographic dye allergy status; Z86.010 Personal history of colon polyps; Z82.49 Family history of ischemic heart disease and other diseases of the circulatory system; Z80.1 Family history of malignant neoplasm of trachea, bronchus and lung; Z83.79 Family history of other diseases of the digestive system
CPT/HCPCS: 36415; 71046; 78582; 80048; 80053; 81003; 82550; 82553; 84484; 85025; 85379; 85610; 85730; 93005; 94640; 94760; 96361; 96374; 96375; 99285

== ENCOUNTER 2018-02-14 14:49 | Emergency (ER) | payer MEDICARE, BC ==
[2018-02-14 15:06] VITALS: TEMP 98.1
--- NOTE | 2018-02-14 15:41 | XR ---
EXAMINATION TYPE: XR chest 2V DATE OF EXAM: 02/14/2018 COMPARISON: 02/06/2018 INDICATION: Difficulty breathing TECHNIQUE: Frontal and lateral views of the chest are obtained. FINDINGS: The heart size is normal. The pulmonary vasculature is normal. Some streak opacity appears to be at the left base above the diaphragm. Lungs are otherwise clear. IMPRESSION: 1. Mild streak atelectasis left lung base.
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
[2018-02-14 16:36] LABS: Partial Thromboplastin Time 24.9 sec (22.0-30.0); Prothrombin Time 9.5 sec (9.0-12.0)
[2018-02-14 16:43] LABS: Anisocytosis Slight; Basophils % (A) 0 %; Eosinophils # (A) 0.1 k/uL (0-0.7); Eosinophils % (A) 1 %; Lymphocytes # (A) 1.8 k/uL (1.0-4.8); Lymphocytes % (A) 19 %; MCH 31.4 pg (25.0-35.0); MCHC 31.5 g/dL (31.0-37.0); MCV 99.6 fL (80.0-100.0); Macrocytosis Slight; Mean Platelet Volume 6.8; Monocytes # (A) 0.6 k/uL (0-1.0); Monocytes % (A) 6 %; Neutrophils # (A) 6.9 k/uL (1.3-7.7); Neutrophils % (A) 73 %; Platelet Count 172 k/uL (150-450); RBC 3.82 m/uL (4.30-5.90); RDW 16.4 % (11.5-15.5); WBC 9.5 k/uL (3.8-10.6)
[2018-02-14 16:46] LABS: Albumin 3.2 g/dL (3.5-5.0); Calcium 8.4 mg/dL (8.4-10.2); Magnesium 2.2 mg/dL (1.6-2.3); Potassium 3.8 mmol/L (3.5-5.1); Total Bilirubin 0.5 mg/dL (0.2-1.3); Total Protein 5.6 g/dL (6.3-8.2)
[2018-02-14 16:50] LABS: Creatine Kinase 34 U/L (55-170)
[2018-02-14 17:05] LABS: Creatine Kinase MB 1.2 ng/mL (0.0-2.4); Troponin I <0.012 ng/mL (0.000-0.034)
[2018-02-14 17:39] VITALS: BP 127/82; PULSE 90; RESP 18
== END 2018-02-14 17:39 | disposition home or self-care (01) ==
LOC: EC 14:49
DX: G47.30 Sleep apnea, unspecified (principal); J44.9 Chronic obstructive pulmonary disease, unspecified; E78.5 Hyperlipidemia, unspecified; I10 Essential (primary) hypertension; J96.11 Chronic respiratory failure with hypoxia; G89.29 Other chronic pain; E07.9 Disorder of thyroid, unspecified; K21.9 Gastro-esophageal reflux disease without esophagitis; N40.0 Benign prostatic hyperplasia without lower urinary tract symptoms; G25.81 Restless legs syndrome; M06.9 Rheumatoid arthritis, unspecified; F41.9 Anxiety disorder, unspecified; Z87.891 Personal history of nicotine dependence; Z88.0 Allergy status to penicillin; Z91.041 Radiographic dye allergy status; Z79.1 Long term (current) use of non-steroidal anti-inflammatories (NSAID); Z79.51 Long term (current) use of inhaled steroids; Z79.52 Long term (current) use of systemic steroids; Z79.891 Long term (current) use of opiate analgesic; Z79.899 Other long term (current) drug therapy; Z99.81 Dependence on supplemental oxygen; Z80.1 Family history of malignant neoplasm of trachea, bronchus and lung
CPT/HCPCS: 36415; 71046; 80053; 82550; 82553; 83735; 84484; 85025; 85610; 85730; 93005; 99285

== ENCOUNTER 2018-04-24 12:33 | Inpatient (IN) | payer MEDICARE, BC ==
[2018-04-24] MEDS ORDERED: methylPREDNISolone SOD SUCCI 125 MG/2 ML VIAL IV STA (12:54)
[2018-04-24] MEDS ORDERED: ALBUTEROL NEBULIZED 2.5 MG/3 ML INHALATION STA (12:54)
[2018-04-24] MEDS ORDERED: SODIUM CHLORIDE 0.9% 1,000 ML IV STA (12:54)
[2018-04-24] MEDS ORDERED: IPRATROPIUM 0.5 MG/2.5 ML NEBU INHALATION STA (12:54)
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
[2018-04-24 13:50] LABS: Basophils % (A) 1 %; Eosinophils # (A) 0.3 k/uL (0-0.7); Eosinophils % (A) 6 %; HCT 37.7 % (39.0-53.0); HGB 12.4 gm/dL (13.0-17.5); Lymphocytes # (A) 1.7 k/uL (1.0-4.8); Lymphocytes % (A) 33 %; MCH 32.2 pg (25.0-35.0); MCHC 32.8 g/dL (31.0-37.0); MCV 98.1 fL (80.0-100.0); Monocytes # (A) 0.3 k/uL (0-1.0); Monocytes % (A) 5 %; Neutrophils # (A) 2.8 k/uL (1.3-7.7); Neutrophils % (A) 53 %; Platelet Count 142 k/uL (150-450); RBC 3.84 m/uL (4.30-5.90); WBC 5.2 k/uL (3.8-10.6)
[2018-04-24 14:02] LABS: Albumin 3.9 g/dL (3.5-5.0); Potassium 4.5 mmol/L (3.5-5.1); Total Bilirubin 0.6 mg/dL (0.2-1.3); Total Protein 6.4 g/dL (6.3-8.2)
[2018-04-24 14:03] LABS: INR 0.9 (<1.2); Partial Thromboplastin Time 26.7 sec (22.0-30.0); Prothrombin Time 9.8 sec (9.0-12.0)
[2018-04-24 14:18] LABS: Magnesium 2.2 mg/dL (1.6-2.3)
[2018-04-24 14:21] LABS: Creatine Kinase 377 U/L (55-170)
[2018-04-24 14:32] LABS: Creatine Kinase MB 2.3 ng/mL (0.0-2.4); Troponin I <0.012 ng/mL (0.000-0.034)
--- NOTE | 2018-04-24 14:47 | XR ---
EXAMINATION TYPE: XR chest 2V DATE OF EXAM: 04/24/2018 COMPARISON: 02/14/2018 HISTORY: Shortness of breath, cough, congestion with history of asthma, COPD, and hypertension. TECHNIQUE: Frontal and lateral views of the chest are obtained. FINDINGS: There is no focal air space opacity, pleural effusion, or pneumothorax seen. Pulmonary hyp erinflation relates to underlying COPD. The cardiac silhouette size is mildly enlarged. Midthoracic v ertebral body compression deformity is similar to the prior. There is diffuse osseous demineralizatio n and mild multilevel degenerative changes of the spine. The osseous structures are intact. IMPRESSION: No acute cardiopulmonary process. Radiographic sequela of COPD.
[2018-04-24] MEDS: IPRATROPIUM-ALBUTEROL 3 ML NEB INHALATION SCH ×2 (16:45→19:42)
[2018-04-24 17:34] LABS: ABG Base Excess 12.3 mmol/L; ABG HCO3 37 mmol/L (21-25); ABG Oxygen Saturation 95.4 % (94-97); ABG PCO2 60 mmHg (35-45); ABG PO2 70 mmHg (83-108); ABG TCO2 39 mmol/L (19-24)
[2018-04-24] MEDS: SODIUM CHLORIDE 0.9% 1,000 ML IV SCH (20:33)
[2018-04-24] MEDS: methylPREDNISolone SOD SUCCI 125 MG/2 ML VIAL IV SCH (20:33)
[2018-04-24] MEDS ORDERED: NITROGLYCERIN SL TABS 0.4 MG TAB SUBLINGUAL PRN (22:46)
[2018-04-24] MEDS ORDERED: ONDANSETRON 4 MG/2 ML VIAL IVP PRN (22:49)
[2018-04-24] MEDS ORDERED: NALOXONE 0.4 MG/ML 1 ML VIAL IV PRN (22:49)
[2018-04-24] MEDS ORDERED: MAGNESIUM HYDROXIDE 2,400 MG/10 ML CUP PO PRN (22:49)
[2018-04-24] MEDS ORDERED: CALCIUM CARBONATE 500 MG CHEWABLE PO PRN (22:49)
[2018-04-24] MEDS ORDERED: ACETAMINOPHEN TAB 325 MG TAB PO PRN (22:49)
[2018-04-24] MEDS ORDERED: LACTULOSE 20 GM/30 ML CUP PO PRN (22:49)
--- NOTE | 2018-04-24 23:44 | HP ---
HISTORY AND PHYSICAL DATE OF ADMISSION: April 24, 2018. PRESENTING COMPLAINT: Lethargic. HISTORY OF PRESENTING COMPLAINT: This is a pleasant 83-year-old patient, well known to me from prior admissions. The patient does follow with Dr. 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 Chronic stable medical conditions include GERD, hypertension, BPH, rheumatoid arthritis, on home oxygen 2 L, diverticulosis, restless legs syndrome, Alzheimer's dementia, intrathecal pain pump and follows for his pain management per Dr. Hilliard. The patient presents to the ER being rather lethargic, a little bit confused at home, the ER physician called me. I was suspicious the patient may be having CO2 retention. The patient's blood gas did come back showing a pCO2 of 60 though patient's pH is 7.4. The patient is on a hefty load of pain medications including intrathecal pain pump and also patient is on the patient is on Requip, Ativan, Neurontin. When I came to the room, patient is actually more awake is also breathing, is relatively not too bad. The patient states that he often sleeps several hours could be 12-15 hours at times. When he wants to wake up, then he has to gasp. Some time he has tremors. No fever. No chills. Appetite is fair. Otherwise able to get around. REVIEW OF SYSTEMS: CONSTITUTIONAL: Tired. HEENT decreased hearing. RESPIRATORY: As above. CARDIOVASCULAR: None. GASTROINTESTINAL: Heartburn. GENITOURINARY none. MUSCULOSKELETAL: Occasional twitching. DERMATOLOGICAL: None. HEMATOLOGICAL: None. LYMPHATICS: None. PSYCHIATRY: Forgetful. NEUROLOGICAL: As above. PAST MEDICAL HISTORY: COPD, GERD, hyperlipidemia, hypertension, prostate disorder, rheumatoid arthritis. Home oxygen on 2 L, low back pain with a pain pump being followed by Dr. Hilliard, cataract in the right eye, right eye injury with vision loss shingles, chronic sinus disease, migraines, diverticulosis, restless legs syndrome, BPH, right carpal tunnel. PAST SURGICAL HISTORY: Right lens implant, right foot toe surgery, left foot surgery, repair of left index finger, partial amputation, bilateral rotator cuff repair, pain pump. PSYCH HISTORY: Anxiety. SOCIAL HISTORY: Patient's daughter helps out quite a bit. Does use a cane and a walker. Home oxygen. The patient stopped smoking in 1962. No alcohol. FAMILY HISTORY: Of cirrhosis. HOME MEDICATIONS: 1. Requip 0.5 mg p.o. t.i.d. 2. Mucinex 1200 mg p.o. b.i.d. 3. Benadryl 25 mg q.h.s. 4. Flomax 0.4 mg q.h.s. 5. Senokot 17.2 mg p.o. q.h.s. 6. Potassium 10 mEq a day. 7. Omeprazole 40 mg q.h.s. 8. Nitrostat 0.4 sublingual q.5 p.r.n. 9. Multivitamin. 10.Morphine pain pump. 11.Mobic 50 mg p.o. daily. 12.Synthroid 125 mcg p.o. daily. 13.Ativan 0.5 mg p.o. t.i.d. 14.Imdur ER 60 mg p.o. daily. 15.DuoNeb q.i.d. 16.Neurontin 800 mg t.i.d. 17.Lasix 20 mg daily. 18.Breo Ellipta 1 puff daily. 19.Flonase. 20.Doxepin 50 mg p.o. at bedtime. 21.Aricept 10 mg p.o. q.h.s. 22.Cardia XT 120 mg p.o. q.h.s. 23.Lipitor 20 mg q.h.s. ALLERGIES: IV CONTRAST DYE AND PENICILLIN. PHYSICAL EXAMINATION: VITAL SIGNS: Vital signs on presentation temperature 98.3, pulse 74, respiratory 18, blood pressure 122/64, pulse ox 97% on room air. GENERAL APPEARANCE: Well built, BMI 37.6, sitting up, a bit tired, slightly sleepy. EYES: Pupils equal. Conjunctivae normal. HEENT: External appearance of nose and ears normal. Oral cavity normal. Decreased hearing. NECK: JVD unable to assess. Mass not palpable. RESPIRATORY: Effort normal. LUNGS: Decreased breath sounds. Prolonged expiration. CARDIOVASCULAR: 1st and 2nd sounds normal. No edema. ABDOMEN: Distended, soft. Liver and spleen not palpable. LYMPHATIC: No lymph nodes palpable in the neck or axilla. PSYCHIATRY: The patient is a little bit tired-appearing but able to answer questions. NEUROLOGICAL: Pupils equal. Cranial nerves grossly intact. Power and sensation grossly intact. INVESTIGATION: White count 5.2, hemoglobin 12.4. Blood gas showed a pH of 7.4, pCO2 of 60 and a PO2 of 70, potassium 4.5. BUN 25, creatinine 1.30. EKG tracing personally reviewed by me shows normal sinus rhythm. Incomplete right bundle branch block. Chest x-ray film personally reviewed by me shows cardiomegaly a little bit underexposed film. No obvious infiltrate. Some unfolding of the aorta. ASSESSMENT: 1. Acute metabolic encephalopathy, likely a combination of CO2 narcosis and some element of Neurontin toxicity given that the patient has been having twitches and sleeps for several hours. It may be also noted that the patient takes other pain medications too. 2. Chronic obstructive pulmonary disease. 3. Gastroesophageal reflux disease. 4. Essential hypertension. 5. Hyperlipidemia. 6. Benign prostatic hypertrophy. 7. Chronic rheumatoid arthritis. 8. Hypothyroid. 9. Chronic hypoxic and hypercapnic respiratory failure from chronic obstructive pulmonary disease. 10.Chronic diverticulosis colonic. 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 12.Restless legs syndrome. 13.Gait dysfunction uses a cane and a walker. 14.Chronic pain syndrome. Use intrathecal pump as per Dr. Hilliard. PLAN: Home medications will be resumed. At this point, I will discontinue patient's Benadryl at night. We will also stop the Ativan and cut back on Neurontin to 300 mg 3 times a day. Otherwise, I think that should able to increase patient's some respiratory drive and help for the CO2 retention. We will get a pulmonary opinion. Care was discussed with the patient. We will also try to get hold of Dr. Hilliard at least pass my notes onto him. Copy to Dr. Elkins. MMODL / IJN: [id number] /
[2018-04-25] MEDS: ATORVASTATIN 20 MG TAB PO SCH ×2 (00:12→22:39)
[2018-04-25] MEDS: DOXEPIN 25 MG CAP PO SCH (00:12)
[2018-04-25] MEDS: DONEPEZIL 10 MG TAB PO SCH ×2 (00:12→22:39)
[2018-04-25] MEDS: SENNOSIDES 8.6 MG TAB PO SCH ×2 (00:13→22:40)
[2018-04-25] MEDS: TAMSULOSIN 0.4 MG CAP.ER.24H PO SCH ×2 (00:13→22:40)
[2018-04-25] MEDS: methylPREDNISolone SOD SUCCI 125 MG/2 ML VIAL IV SCH ×3 (00:39→12:08)
[2018-04-25] MEDS: SODIUM CHLORIDE 0.9% 1,000 ML IV SCH ×2 (04:20→15:02)
[2018-04-25] MEDS: LEVOTHYROXINE 50 MCG TAB PO SCH (06:19)
[2018-04-25] MEDS: IPRATROPIUM-ALBUTEROL 3 ML NEB INHALATION SCH ×4 (07:21→20:33)
[2018-04-25] MEDS: ENOXAPARIN 40 MG/0.4 ML SYRINGE SQ SCH (07:39)
[2018-04-25] MEDS: MULTIVITAMINS, THERA 1 EACH TAB PO SCH (07:39)
[2018-04-25] MEDS: GABAPENTIN 400 MG CAP PO SCH ×3 (07:39→22:40)
[2018-04-25] MEDS: FUROSEMIDE 20 MG TAB PO SCH (07:39)
[2018-04-25] MEDS: guaiFENesin 600 MG TABLET.ER PO SCH ×2 (07:39→22:39)
[2018-04-25] MEDS: ISOSORBIDE MONONITRATE ER 60 MG TAB.ER.24H PO SCH (07:40)
[2018-04-25 07:42] LABS: Glucose,Whole Blood 162 mg/dL (75-99)
[2018-04-25] MEDS: DILTIAZEM CD 120 MG CAP.ER.24H PO SCH (07:42)
[2018-04-25] MEDS ORDERED: MELOXICAM 7.5 MG TAB PO SCH (09:00)
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
[2018-04-25 12:27] LABS: Glucose,Whole Blood 156 mg/dL (75-99)
[2018-04-25 17:13] LABS: Glucose,Whole Blood 137 mg/dL (75-99)
--- NOTE | 2018-04-25 17:57 | PN ---
PROGRESS NOTE DATE OF SERVICE: 04/25/2018 PRESENTING COMPLAINT: Lethargic. INTERVAL HISTORY: This patient presented with COPD exacerbation and metabolic encephalopathy, possibly from Neurontin toxicity, in setting of renal failure. Patient's dose of Neurontin was cut back. Patient is being hydrated. The patient was also on Mobic. Patient earlier this morning spoke to Dr. Hilliard, who is part of the patient's pain management team. Did discuss about cutting back the dose of Neurontin and also cutting back on medications like Benadryl, which are probably interfering with the patient's mentation. The patient's is present today and does confirm that patient oftentimes is rather lethargic. Per Pulmonary, it does seem that patient's pCO2 is rather compensated. REVIEW OF SYSTEMS: Done for constitutional, cardiovascular, GI, pulmonary; relevant findings as above. CURRENT MEDICATIONS: Reviewed. They include: 1. DuoNeb. 2. Solu-Medrol. 3. Neurontin. Dose now decreased to 400 mg 3 times a day from this morning. PHYSICAL EXAMINATION: Temperature 98.8, pulse 96, respiration 18, blood pressure 101/53, pulse ox 93% on room air. GENERAL APPEARANCE: Sitting up, more awake. EYES: Pupils equal. Conjunctivae normal. HEENT: Decreased hearing. NECK: JVD not raised. Mass not palpable. RESPIRATORY: Effort normal. LUNGS: Decreased breath sounds. Prolonged expiration. CARDIOVASCULAR: First and second sounds normal. No edema. ABDOMEN: Soft, non-tender. Liver and spleen not palpable. PSYCHIATRY: A bit more awake. Answering questions. INVESTIGATIONS: Accu-Cheks today are noted. ASSESSMENT: 1. Acute metabolic encephalopathy, possibly an element of Neurontin toxicity in the setting of renal failure and addition of other medications that have now been cut back. 2. Acute chronic obstructive pulmonary disease exacerbation in an ex-smoker. 3. Gastroesophageal reflux disease. 4. Essential hypertension. 5. Hyperlipidemia. 6. Benign prostatic hypertrophy. 7. Chronic rheumatoid arthritis. 8. Hypothyroid. 9. Chronic hypoxic and hypercapnic respiratory failure from chronic obstructive pulmonary disease, compensated. 10.Chronic diverticulosis, colonic. 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 12.Restless legs syndrome. 13.Gait dysfunction. Uses a cane and a walker. 14.Chronic pain syndrome. Uses an intrathecal pain pump, being followed by Dr. Hilliard. PLAN: Care was discussed with Dr. Hilliard in the morning. Also discussed with the patient and his . We will also discontinue patient's Mobic. Repeat electrolytes in the morning. Patient's Solu-Medrol can be scaled back. Total time spent today was about 40 minutes, with over 25 minutes of discussion. MMSALEEML / IJN: [id number] /
[2018-04-25] MEDS: PANTOPRAZOLE 40 MG TABLET PO SCH (22:40)
[2018-04-26] MEDS: DOXEPIN 25 MG CAP PO SCH ×2 (00:18→20:21)
[2018-04-26] MEDS: methylPREDNISolone SOD SUCCI 40 MG/ML 1 ML VIAL IV SCH ×3 (00:42→16:01)
[2018-04-26] MEDS: SODIUM CHLORIDE 0.9% 1,000 ML IV SCH ×3 (02:00→16:02)
[2018-04-26] MEDS: LEVOTHYROXINE 50 MCG TAB PO SCH (06:42)
[2018-04-26 07:46] LABS: Glucose,Whole Blood 149 mg/dL (75-99)
[2018-04-26] MEDS: IPRATROPIUM-ALBUTEROL 3 ML NEB INHALATION SCH ×4 (07:52→19:32)
[2018-04-26] MEDS: ENOXAPARIN 40 MG/0.4 ML SYRINGE SQ SCH (08:35)
[2018-04-26] MEDS: guaiFENesin 600 MG TABLET.ER PO SCH ×2 (08:40→20:23)
[2018-04-26] MEDS: GABAPENTIN 400 MG CAP PO SCH ×3 (08:41→20:22)
[2018-04-26] MEDS: DILTIAZEM CD 120 MG CAP.ER.24H PO SCH (08:41)
[2018-04-26] MEDS: ISOSORBIDE MONONITRATE ER 60 MG TAB.ER.24H PO SCH (08:41)
[2018-04-26] MEDS: MULTIVITAMINS, THERA 1 EACH TAB PO SCH (08:41)
[2018-04-26] MEDS: FUROSEMIDE 20 MG TAB PO SCH (08:41)
[2018-04-26 10:25] LABS: Calcium 9.2 mg/dL (8.4-10.2); Potassium 4.2 mmol/L (3.5-5.1)
[2018-04-26 12:09] LABS: Glucose,Whole Blood 215 mg/dL (75-99)
--- NOTE | 2018-04-26 15:31 | P.PN ---
Subjective Progress Note Date: 04/26/18 Principal diagnosis: Acute on top of chronic dyspnea on the basis of COPD and some degree of fluid overload 82-year-old male patient known history of COPD and chronic hypoxic respiratory failure in addition to various other medical problems and comorbidities including RA, hypertension, hyperlipidemia, BPH and chronic back pain requiring a pain pump. The patient comes into the hospital because of worsening shortness of breath. He was also getting more swollen and developing increasing edema lower extremities bilaterally. He has multiple hospitalizations for the same reason the patient last hospital admit was on . No angina. No palpitation. Cough is dry. No significant sputum production. No palpitations. No lightheadedness or dizziness. The white cell count was nonelevated. Blood gas showed a compensated chronic respiratory failure with a pH of 7.4 and a pCO2 of 60 and a pO2 of 70. Cardiac enzyme 2 has been negative. BNP level is at 83. Electrolytes are within normal with a creatinine of 1.3. On 09/24/2017 patient seen in follow-up on medical surgical floor. Looking and feeling much better today, lung sounds positive for a few basilar rales, no wheezing no rhonchi. Vital signs are stable. Afebrile. Room air pulse ox is 92%, no acute events overnight, patient is up ambulating, tolerating activity well, from pulmonary perspective patient stable for discharge home today. Today 's labs have been reviewed, no new chest x-rays. Renal profile is improving. Objective - Vital Signs Vital signs: Vital Signs Temp 98.3 F 04/26/18 13:48 Pulse 88 04/26/18 13:48 Resp 20 04/26/18 13:48 BP 119/67 04/26/18 13:48 Pulse Ox 92 L 04/26/18 13:48 Intake & Output 04/25/18 04/26/18 04/26/18 18:59 06:59 18:59 Other: # Voids 3 2 2 - Exam GENERAL EXAM: Alert, pleasant 83-year-old white male comfortable in no apparent distress. HEAD: Normocephalic/atraumatic. EYES: Normal reaction of pupils, equal size. Conjunctiva pink, sclera white. NOSE: Clear with pink turbinates. THROAT: No erythema or exudates. NECK: No masses, no JVD, no thyroid enlargement, no adenopathy. CHEST: No chest wall deformity. Symmetrical expansion. LUNGS: Equal air entry with bibasilar crackles, no wheezing or rhonchi CVS: Regular rate and rhythm, normal S1 and S2, no gallops, no murmurs, no rubs ABDOMEN: Soft, nontender. No hepatosplenomegaly, normal bowel sounds, no guarding or rigidity. EXTREMITIES: No clubbing, no edema, no cyanosis, 2+ pulses and upper and lower extremities. MUSCULOSKELETAL: Muscle strength and tone normal. SPINE: No scoliosis or deformity SKIN: No rashes CENTRAL NERVOUS SYSTEM: Alert and oriented -3. No focal deficits, tone is normal in all 4 extremities. PSYCHIATRIC: Alert and oriented -3. Appropriate affect. Intact judgment and insight. - Labs CBC & Chem 7: 04/24/18 13:28 04/26/18 09:18 Labs: Abnormal Lab Results - Last 24 Hours (Table) 04/25/18 04/26/18 04/26/18 Range/Units 17:07 07:23 09:18 BUN 27 H (9-20) mg/dL Glucose 238 H (74-99) mg/dL POC Glucose (mg/dL) 137 H 149 H (75-99) mg/dL 04/26/18 Range/Units 11:58 BUN (9-20) mg/dL Glucose (74-99) mg/dL POC Glucose (mg/dL) 215 H (75-99) mg/dL Assessment and Plan Plan: Assessment: #1 acute on top of chronic dyspnea on a basis of COPD and some degree of fluid overload. The patient is chronic hypoxic and hypercapnic respiratory failure. The patient has compensated hypercapnic respiratory failure please refer to the blood gases was done during this current admission. The chest x-ray shows no acute abnormalities. #2 Acute renal failure secondary to suspected dehydration, the patient is on diuretics and anti-inflammatories in the outpatient setting. Creatinine is at 1.3 #3 Acute exacerbation of chronic obstructive pulmonary disease, mild. FEV1 value 73% of predicted. #4 chronic hypoxic respiratory failure in a patient utilizing oxygen in the outpatient setting mainly at night at 2 L/m per nasal cannula. #5 Dementia. #6 Hypertension. #7 Hypothyroidism. #8 Benign prostatic hypertrophy. #9 Chronic pain syndrome utilizing a pain pump. #10 Gastric esophageal reflux disease. #11 Rheumatoid arthritis. 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 #13 Diverticulosis. Plan: Current medical treatment, IV steroids have been decreased to 40 mg every 8 hours, continue oral diuretics, today's labs were noted, renal profile is improving, patient is feeling a breathing better today, tolerating ambulation. From pulmonary perspective patient could be considered for discharge home today or tomorrow, doing good. Follow-up with Dr. Huitron in the office in one week I performed a history & physical examination of the patient and discussed their management with my nurse practitioner, Marta Herrera. I reviewed the nurse practitioner's note and agree with the documented findings and plan of care. Lung sounds are positive for basilar crackles The findings and the impression was discussed with the patient. I attest to the documentation by the nurse practitioner. Time with Patient: Less than 30
[2018-04-26 17:12] LABS: Glucose,Whole Blood 178 mg/dL (75-99)
[2018-04-26] MEDS ORDERED: IPRATROPIUM-ALBUTEROL 3 ML NEB INHALATION PRN (19:53)
[2018-04-26 20:20] LABS: Glucose,Whole Blood 219 mg/dL (75-99)
[2018-04-26] MEDS: SENNOSIDES 8.6 MG TAB PO SCH (20:23)
[2018-04-26] MEDS: TAMSULOSIN 0.4 MG CAP.ER.24H PO SCH (20:23)
[2018-04-26] MEDS: DONEPEZIL 10 MG TAB PO SCH (20:23)
[2018-04-26] MEDS: ATORVASTATIN 20 MG TAB PO SCH (20:23)
[2018-04-26] MEDS: PANTOPRAZOLE 40 MG TABLET PO SCH (20:24)
--- NOTE | 2018-04-27 00:52 | PN ---
PROGRESS NOTE DATE OF SERVICE: 04/26/2018. PRESENTING COMPLAINT: Tired. INTERVAL HISTORY: Patient with COPD exacerbation and metabolic encephalopathy. Positive Neurontin toxicity. Doing much better. Breathing is much better. Up and about, tolerating a diet. REVIEW OF SYSTEMS: Done for constitutional, cardiovascular, GI, pulmonary; relevant findings as above. CURRENT MEDICATIONS: Reviewed, include decreased dose of Neurontin, IV Solu-Medrol. PHYSICAL EXAMINATION: Temperature 98.3, pulse 80, respirations 20, blood pressure 109/67, pulse ox 92 percent room air. GENERAL APPEARANCE: Lying in bed comfortable. EYES: Pupils equal. Conjunctivae normal. NECK: Supple. JVD not raised. Mass not palpable. Respiratory effort normal. LUNGS: Decreased breath sounds. Prolonged expiration. CARDIOVASCULAR: 1st and 2nd heart sounds normal. No edema. ABDOMEN: Soft, nontender. Liver and spleen not palpable. PSYCHIATRY: Awake, answering questions appropriately. INVESTIGATIONS: BUN 27, creatinine 1.22. Accu-Cheks are noted. ASSESSMENT: 1. Acute metabolic encephalopathy and element of Neurontin toxicity in the setting of renal failure. 2. Acute chronic obstructive pulmonary disease exacerbation in an ex-smoker. 3. Gastroesophageal reflux disease. 4. Essential hypertension. 5. Hyperlipidemia. 6. Benign prostatic hypertrophy. 7. Chronic rheumatoid arthritis. 8. Hypothyroidism. 9. Chronic hypoxic and hypercapnic respiratory failure from chronic obstructive pulmonary disease, compensated. 10.Chronic diverticulosis, chronic. 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 12.Restless legs syndrome. 13.Gait dysfunction, uses a cane and a walker. 14.Chronic pain syndrome, has intrathecal pain pump, being followed by Dr. Hilliard. PLAN: Will switch the patient over to prednisone tomorrow morning. Patient should be able to go home. The patient's Mobic and Lasix both were discontinued. MMODL / IJN: [id number] /
[2018-04-27] MEDS: LEVOTHYROXINE 50 MCG TAB PO SCH (05:34)
[2018-04-27] MEDS: IPRATROPIUM-ALBUTEROL 3 ML NEB INHALATION SCH ×3 (07:13→15:15)
[2018-04-27 07:31] LABS: Glucose,Whole Blood 133 mg/dL (75-99)
[2018-04-27 07:51] VITALS: BP 123/59; RESP 18; TEMP 98.5
[2018-04-27] MEDS: ISOSORBIDE MONONITRATE ER 60 MG TAB.ER.24H PO SCH (07:57)
[2018-04-27] MEDS: MULTIVITAMINS, THERA 1 EACH TAB PO SCH (07:57)
[2018-04-27] MEDS: GABAPENTIN 400 MG CAP PO SCH ×2 (07:57→15:07)
[2018-04-27] MEDS: ENOXAPARIN 40 MG/0.4 ML SYRINGE SQ SCH (07:58)
[2018-04-27] MEDS: guaiFENesin 600 MG TABLET.ER PO SCH (07:58)
[2018-04-27] MEDS: DILTIAZEM CD 120 MG CAP.ER.24H PO SCH (08:05)
[2018-04-27] MEDS ORDERED: predniSONE 10 MG TAB PO SCH (09:00)
[2018-04-27 09:37] LABS: Potassium 4.3 mmol/L (3.5-5.1)
[2018-04-27 12:34] LABS: Glucose,Whole Blood 181 mg/dL (75-99)
--- NOTE | 2018-04-27 12:42 | XR ---
EXAMINATION TYPE: XR shoulder complete RT DATE OF EXAM: 04/27/2018 CLINICAL HISTORY: Right shoulder pain TECHNIQUE: Three views of the right shoulder are obtained. COMPARISON: None. FINDINGS: There is no acute fracture/dislocation evident in the right shoulder. There is generalized osseous demineralization present. Moderate glenohumeral arthropathy and acromio clavicular arthropat hy are seen as marginal osteophytes and joint space narrowing. Capsular hypertrophy is also seen of t he acromioclavicular joint. IMPRESSION: There is no acute fracture or dislocation in the right shoulder. Moderate acromioclavicu lar and glenohumeral arthropathy.
--- NOTE | 2018-04-27 13:57 | P.PN ---
Subjective Progress Note Date: 04/27/18 Principal diagnosis: Acute on top of chronic dyspnea on the basis of COPD and some degree of fluid overload 82-year-old male patient known history of COPD and chronic hypoxic respiratory failure in addition to various other medical problems and comorbidities including RA, hypertension, hyperlipidemia, BPH and chronic back pain requiring a pain pump. The patient comes into the hospital because of worsening shortness of breath. He was also getting more swollen and developing increasing edema lower extremities bilaterally. He has multiple hospitalizations for the same reason the patient last hospital admit was on . No angina. No palpitation. Cough is dry. No significant sputum production. No palpitations. No lightheadedness or dizziness. The white cell count was nonelevated. Blood gas showed a compensated chronic respiratory failure with a pH of 7.4 and a pCO2 of 60 and a pO2 of 70. Cardiac enzyme 2 has been negative. BNP level is at 83. Electrolytes are within normal with a creatinine of 1.3. On 09/24/2017 patient seen in follow-up on medical surgical floor. Looking and feeling much better today, lung sounds positive for a few basilar rales, no wheezing no rhonchi. Vital signs are stable. Afebrile. Room air pulse ox is 92%, no acute events overnight, patient is up ambulating, tolerating activity well, from pulmonary perspective patient stable for discharge home today. Today 's labs have been reviewed, no new chest x-rays. Renal profile is improving. On 04/27/2018 patient seen in follow-up on medical surgical floor. From pulmonary perspective he is improving, breathing easier, lung sounds are without any wheezing or rhonchi, no rales, vital signs remain stable, room air pulse ox is 98%, no fever or chills, patient did complain of right shoulder pain , apparently patient was repositioning self in bed, and heard a snap x-ray of the right shoulder was completed, and showed no acute fracture or dislocation. Moderate echo mild clavicular and glenohumeral arthropathy. Room air pulse ox is 98%. No major events overnight, patient has been ambulating in the room, tolerating activity well. Today's labs were noted. Objective - Vital Signs Vital signs: Vital Signs Temp 98.5 F 04/27/18 07:00 Pulse 92 04/27/18 11:26 Resp 18 04/27/18 07:00 BP 123/59 04/27/18 07:00 Pulse Ox 98 04/27/18 07:00 Intake & Output 04/26/18 04/27/18 04/27/18 18:59 06:59 18:59 Intake Total 500 Balance 500 Intake: Oral 500 Other: # Voids 1 1 # Bowel Movements 0 - Exam GENERAL EXAM: Alert, pleasant 83-year-old white male comfortable in no apparent distress. HEAD: Normocephalic/atraumatic. EYES: Normal reaction of pupils, equal size. Conjunctiva pink, sclera white. NOSE: Clear with pink turbinates. THROAT: No erythema or exudates. NECK: No masses, no JVD, no thyroid enlargement, no adenopathy. CHEST: No chest wall deformity. Symmetrical expansion. LUNGS: Equal air entry with bibasilar crackles, no wheezing or rhonchi CVS: Regular rate and rhythm, normal S1 and S2, no gallops, no murmurs, no rubs ABDOMEN: Soft, nontender. No hepatosplenomegaly, normal bowel sounds, no guarding or rigidity. EXTREMITIES: No clubbing, no edema, no cyanosis, 2+ pulses and upper and lower extremities. MUSCULOSKELETAL: Muscle strength and tone normal. SPINE: No scoliosis or deformity SKIN: No rashes CENTRAL NERVOUS SYSTEM: Alert and oriented -3. No focal deficits, tone is normal in all 4 extremities. PSYCHIATRIC: Alert and oriented -3. Appropriate affect. Intact judgment and insight. - Labs CBC & Chem 7: 04/24/18 13:28 04/27/18 08:45 Labs: Abnormal Lab Results - Last 24 Hours (Table) 04/26/18 04/26/18 04/27/18 Range/Units 16:50 20:19 07:28 Carbon Dioxide (22-30) mmol/L BUN (9-20) mg/dL Glucose (74-99) mg/dL POC Glucose (mg/dL) 178 H 219 H 133 H (75-99) mg/dL 04/27/18 04/27/18 Range/Units 08:45 12:32 Carbon Dioxide 33 H (22-30) mmol/L BUN 31 H (9-20) mg/dL Glucose 148 H (74-99) mg/dL POC Glucose (mg/dL) 181 H (75-99) mg/dL Assessment and Plan Plan: Assessment: #1 acute on top of chronic dyspnea on a basis of COPD and some degree of fluid overload. The patient is chronic hypoxic and hypercapnic respiratory failure. The patient has compensated hypercapnic respiratory failure please refer to the blood gases was done during this current admission. The chest x-ray shows no acute abnormalities. #2 Acute renal failure secondary to suspected dehydration, the patient is on diuretics and anti-inflammatories in the outpatient setting. Creatinine is at 1.3 #3 Acute exacerbation of chronic obstructive pulmonary disease, mild. FEV1 value 73% of predicted. #4 chronic hypoxic respiratory failure in a patient utilizing oxygen in the outpatient setting mainly at night at 2 L/m per nasal cannula. #5 Dementia. #6 Hypertension. #7 Hypothyroidism. #8 Benign prostatic hypertrophy. #9 Chronic pain syndrome utilizing a pain pump. #10 Gastric esophageal reflux disease. #11 Rheumatoid arthritis. 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 #13 Diverticulosis. Plan: Patient continues to improve, breathing easier, not bronchospastic or congested , vital signs stable, no fever or chills, x-ray of the right shoulder was noted , and did not show any fracture or dislocation, from pulmonary perspective patient is stable for discharge home today on prednisone taper, patient can resume his nebulized treatments and inhalers. Follow up with Dr. David in 7- 10 days. I performed a history & physical examination of the patient and discussed their management with my nurse practitioner, Marta Herrera. I reviewed the nurse practitioner's note and agree with the documented findings and plan of care. Lung sounds are positive for basilar crackles The findings and the impression was discussed with the patient. I attest to the documentation by the nurse practitioner. Time with Patient: Less than 30
[2018-04-27 15:25] VITALS: PULSE 84
--- NOTE | 2018-05-01 01:58 | DS ---
DISCHARGE SUMMARY DATE OF ADMISSION: 04/25/2018 DATE OF DISCHARGE: 04/27/2018. FINAL DIAGNOSES: 1. Acute metabolic encephalopathy from Neurontin toxicity in the setting of renal failure. 2. Acute chronic obstructive pulmonary disease exacerbation in an ex-smoker. 3. Gastroesophageal reflux disease. 4. Essential hypertension. 5. Hyperlipidemia. 6. Benign prostatic hypertrophy. 7. Chronic rheumatoid arthritis. 8. Hypothyroidism. 9. Chronic hypoxic and hypercapnic respiratory failure from chronic obstructive pulmonary disease, compensated. 10.Chronic diverticulosis, chronic. 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 12.Restless legs syndrome. 13.Gait dysfunction uses a cane and a walker. 14.Chronic pain syndrome has intrathecal pain pump being followed by Dr. Hilliard. 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 HOSPITAL COURSE: This patient presented with COPD exacerbation, rather lethargic, sleepy and having jerking movements. Patient was suspected of Neurontin toxicity. The dose was cut back. The patient really did really well with the same. Some of the other medications were discontinued that were interfering with sleep pattern. Patient educated about the same at length. Also, COPD exacerbation was treated with bronchodilators and steroids to which he really did well. On day of discharge, care was discussed at length with the patient. Questions were answered. For shoulder pain, he is going to follow with his orthopedics and also his pain management doctor. Discussion and discharge planning more than 35 minutes. PHYSICAL EXAMINATION: Temperature 98.5, pulse 59, respiratory 18, blood pressure 123/59, pulse ox 98% on room air. Lungs: Fair entry. CARDIOVASCULAR: First and second sounds normal. Psych: AO x3. INVESTIGATIONS: BUN 31, creatinine 1.24, shoulder x-ray shows moderate acromioclavicular and glenohumeral arthropathy. DISCHARGE MEDICATIONS: 1. Lipitor 20 mg q.h.s. 2. Aricept 10 mg q.h.s. 3. Imdur ER 60 mg a day. 4. Synthroid 175 mcg a day. 5. Omeprazole 40 mg q.h.s. 6. Flomax 0.4 mg q.h.s. 7. Requip 0.5 mg p.o. t.i.d. 8. Morphine pain pump. 9. Senokot 17.2 mg q.h.s. 10.Multivitamin Adult gummies 1 tablet p.o. daily. 11.Nitrostat 0.4 sublingual q.5h. 12.Cardia XT 120 mg p.o. daily. 13.Doxepin 150 mg p.o. q.h.s. 14.Flonase 1 spray each nostril daily. 15.Breo Ellipta 100/25 1 puff daily. 16.Mobic 15 mg p.o. daily. 17.Mucinex 1200 mg p.o. b.i.d. 18.DuoNeb 3 mL q.i.d. 19.Neurontin 400 mg p.o. t.i.d. new dose. 20.Melatonin 5 mg q.h.s. new dose. 21.Prednisone rapid taper. Discontinued medications: Ativan, discontinued Lasix, discontinued Benadryl, discontinued potassium. FOLLOW UP: Dr. Diaz on May 11, 2018, follow up with Dr. Hilliard in 1 week, follow Dr. Fly Elkins in [place] on May 01, 2018, follow up with Dr. Chacon on May 04, 2018 for shoulder pain. Discussion and discharge planning more than 35 minutes. MMODL / IJN: [id number] /
--- NOTE | 2018-05-04 13:17 | CDI ---
Documentation Clarification Form Date: 05-04-18 From: JIMENEZ Story Phone: If you have question, contact Alysia Kumari at [phone] M-F 8:30 am to 6pm Admit Date: 04/25/2018 2:37:00 PM Patient Name: Gabriel Renee Visit Number: [id number] Discharge Date: 04/27/2018 3:27:00 PM ATTENTION: The Clinical Documentation Specialists (CDI) and [facility] Coding Staff appreciate your assistance in clarifying documentation. Please respond to the clarification below the line at the bottom and electronically sign. The CDI & [facility] Coding staff will review the response and follow-up if needed. Please note: Queries are made part of the Legal Health Record. If you have any questions, please contact the author of this message via ITS. Dr. Ralph Barajas The patient presented with altered mental status, confusion and lethargy. According to his home medications, he is prescribed 800mg TID of Neurontin. In the H&P assessment it is noted acute metabolic encephalopathy, likely a combination of CO2 narcosis and some element of Neurontin toxicity. In the Plan it is noted that there was a cut down to 300mg TID for the Neurontin. By discharge the patient is prescribed a new dose of 400mg TID for the Neurontin. Neurontin toxicity is documented throughout the chart. Please clarify if this Neurontin toxicity is caused by the patient taking the medication as prescribed or if it was taken wrongly. In your professional opinion, can you please clarify the following? Neurontin was taken as prescribed Neurontin was taken wrongly Other, please specify Unable to determine Neurontin was taken as prescribed MTDD
== END 2018-04-27 15:27 | disposition home or self-care (01) | DRG 190 ==
LOC: EC 12:33 → 4MS4W 16:01 → OBSVTOIN 04-25 14:37
PROVIDERS: ADMIT Hospitalist; ATTEND Hospitalist
DX: J44.1 Chronic obstructive pulmonary disease with (acute) exacerbation (principal); G92 Toxic encephalopathy; J96.11 Chronic respiratory failure with hypoxia; J96.12 Chronic respiratory failure with hypercapnia; N17.9 Acute kidney failure, unspecified; F02.81 Dementia in other diseases classified elsewhere, unspecified severity, with behavioral disturbance; R53.83 Other fatigue; I10 Essential (primary) hypertension; M06.9 Rheumatoid arthritis, unspecified; E78.5 Hyperlipidemia, unspecified; K57.90 Diverticulosis of intestine, part unspecified, without perforation or abscess without bleeding; E03.9 Hypothyroidism, unspecified; J32.9 Chronic sinusitis, unspecified; N40.0 Benign prostatic hyperplasia without lower urinary tract symptoms; G25.81 Restless legs syndrome; N42.9 Disorder of prostate, unspecified; M54.5 Low back pain; F41.9 Anxiety disorder, unspecified; E86.0 Dehydration; G89.4 Chronic pain syndrome; R26.9 Unspecified abnormalities of gait and mobility; G30.1 Alzheimer's disease with late onset; K21.9 Gastro-esophageal reflux disease without esophagitis; T42.6X5A Adverse effect of other antiepileptic and sedative-hypnotic drugs, initial encounter; Z86.73 Personal history of transient ischemic attack (TIA), and cerebral infarction without residual deficits; Z87.891 Personal history of nicotine dependence; Z99.81 Dependence on supplemental oxygen; Z79.890 Hormone replacement therapy; Z79.891 Long term (current) use of opiate analgesic; Z79.51 Long term (current) use of inhaled steroids; Z79.899 Other long term (current) drug therapy; Z88.0 Allergy status to penicillin; Z91.041 Radiographic dye allergy status
CPT/HCPCS: 36415; 36600; 71046; 80048; 80053; 82140; 82550; 82553; 82805; 83735; 83880; 84484; 85025; 85610; 85730; 93005; 94640; 94760; 96361; 96374; 99285

== ENCOUNTER 2018-06-12 15:17 | Inpatient (IN) | payer MEDICARE, BC ==
[2018-06-12] MEDS ORDERED: methylPREDNISolone SOD SUCCI 125 MG/2 ML VIAL IV STA (15:44)
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
[2018-06-12] MEDS: IPRATROPIUM-ALBUTEROL 3 ML NEB INHALATION STA ×2 (16:03→16:42)
[2018-06-12 16:17] LABS: Basophils % (A) 0 %; Eosinophils # (A) 0.4 k/uL (0-0.7); Eosinophils % (A) 7 %; HCT 40.6 % (39.0-53.0); Lymphocytes # (A) 1.8 k/uL (1.0-4.8); Lymphocytes % (A) 31 %; MCH 31.7 pg (25.0-35.0); Mean Platelet Volume 6.8; Monocytes # (A) 0.2 k/uL (0-1.0); Monocytes % (A) 4 %; Neutrophils # (A) 3.3 k/uL (1.3-7.7); Neutrophils % (A) 56 %; Platelet Count 143 k/uL (150-450); RDW 14.4 % (11.5-15.5); WBC 5.8 k/uL (3.8-10.6)
[2018-06-12 16:26] LABS: Albumin 3.7 g/dL (3.5-5.0); Calcium 8.8 mg/dL (8.4-10.2); Magnesium 1.9 mg/dL (1.6-2.3); Total Bilirubin 0.5 mg/dL (0.2-1.3); Total Protein 6.3 g/dL (6.3-8.2)
[2018-06-12 16:27] LABS: INR 0.9 (<1.2); Partial Thromboplastin Time 27.3 sec (22.0-30.0); Prothrombin Time 9.9 sec (9.0-12.0)
--- NOTE | 2018-06-12 16:43 | XR ---
EXAMINATION TYPE: XR chest 2V DATE OF EXAM: 06/12/2018 COMPARISON: Chest x-ray April 24, 2018. HISTORY: Dyspnea and difficulty breathing. TECHNIQUE: Frontal and lateral views of the chest are obtained. FINDINGS: There is new patchy bibasilar opacity consistent with atelectasis and/or infiltrate, left greater than right. No pleural effusion or pneumothorax is evident bilaterally. The cardiac silhouet te size remains enlarged. Multilevel spurring in the lower thoracic spine is present. IMPRESSION: Cardiomegaly with patchy left greater than right bibasilar atelectasis and/or infiltrate .
[2018-06-12] MEDS ORDERED: AZITHROMYCIN 500 MG in SODIUM CHLORIDE 0.9% 250 ML IVPB STA (16:47)
[2018-06-12] MEDS ORDERED: OSELTAMIVIR 75 MG CAP PO STA (16:50)
[2018-06-12] MEDS ORDERED: ACETAMINOPHEN TAB 325 MG TAB PO STA (17:14)
[2018-06-12] MEDS ORDERED: methylPREDNISolone SOD SUCCI 125 MG/2 ML VIAL IV SCH (18:00)
[2018-06-12] MEDS: IPRATROPIUM-ALBUTEROL 3 ML NEB INHALATION SCH (19:21)
[2018-06-12 20:22] VITALS: BMI 33.1
[2018-06-12] MEDS: OSELTAMIVIR 75 MG CAP PO SCH (21:11)
[2018-06-12] MEDS ORDERED: NITROGLYCERIN SL TABS 0.4 MG TAB SUBLINGUAL PRN (21:33)
[2018-06-12] MEDS ORDERED: LORazepam 0.5 MG TAB PO SCH (21:45)
[2018-06-12] MEDS: PANTOPRAZOLE 40 MG TABLET PO SCH (22:44)
[2018-06-12] MEDS: DOXEPIN 25 MG CAP PO SCH (22:44)
[2018-06-12] MEDS: MELATONIN 5 MG TABLET PO SCH (22:44)
[2018-06-12] MEDS: SENNOSIDES 8.6 MG TAB PO SCH (22:44)
[2018-06-12] MEDS: ATORVASTATIN 20 MG TAB PO SCH (22:44)
[2018-06-12] MEDS: TAMSULOSIN 0.4 MG CAP.ER.24H PO SCH (22:44)
[2018-06-12] MEDS: DONEPEZIL 10 MG TAB PO SCH (22:44)
[2018-06-12] MEDS: guaiFENesin 600 MG TABLET.ER PO SCH (22:45)
[2018-06-12] MEDS: GABAPENTIN 400 MG CAP PO SCH (22:45)
[2018-06-13] MEDS: methylPREDNISolone SOD SUCCI 40 MG/ML 1 ML VIAL IV SCH ×3 (00:18→17:35)
[2018-06-13] MEDS: IPRATROPIUM-ALBUTEROL 3 ML NEB INHALATION SCH ×5 (03:54→20:21)
[2018-06-13] MEDS: LEVOTHYROXINE 88 MCG TAB PO SCH (06:07)
[2018-06-13 06:53] LABS: Glucose,Whole Blood 203 mg/dL (75-99)
[2018-06-13] MEDS: INSULIN ASPART (NovoLOG) 100 UNIT/ML VIAL SQ SCH ×4 (07:35→20:57)
[2018-06-13] MEDS: FUROSEMIDE 20 MG TAB PO SCH (07:36)
[2018-06-13] MEDS: DILTIAZEM CD 120 MG CAP.ER.24H PO SCH (07:36)
[2018-06-13] MEDS: MELOXICAM 7.5 MG TAB PO SCH (07:37)
[2018-06-13] MEDS: guaiFENesin 600 MG TABLET.ER PO SCH ×2 (07:37→20:55)
[2018-06-13] MEDS: ISOSORBIDE MONONITRATE ER 60 MG TAB.ER.24H PO SCH (07:37)
[2018-06-13] MEDS: GABAPENTIN 400 MG CAP PO SCH ×3 (07:37→22:33)
[2018-06-13] MEDS: OSELTAMIVIR 75 MG CAP PO SCH (07:38)
[2018-06-13] MEDS: POTASSIUM CHLORIDE ER 10 MEQ TAB.ER.PRT PO SCH (07:38)
[2018-06-13] MEDS ORDERED: IPRATROPIUM-ALBUTEROL 3 ML NEB INHALATION SCH (08:00)
[2018-06-13] MEDS: SYMBICORT 80-4.5 MCG INHALER INHALATION SCH ×2 (08:33→20:22)
[2018-06-13 10:55] LABS: Glucose,Whole Blood 210 mg/dL (75-99)
[2018-06-13] MEDS: MULTIVITAMINS, THERA 1 EACH TAB PO SCH (13:06)
--- NOTE | 2018-06-13 15:32 | HP ---
HISTORY AND PHYSICAL DATE OF ADMISSION: 06/12/2018 DATE OF SERVICE: 06/13/2018 PRESENTING COMPLAINT: Cough, short of breath, congested. HISTORY OF PRESENTING COMPLAINT HISTORY: This is an 83-year-old patient who follows Dr. Elkins out of [place] and follows Dr. Diaz of his pattern duplicator. Chronic stable medical conditions include GERD, hypertension, BPH, rheumatoid arthritis, home oxygen 2 L, diverticulosis, restless legs syndrome, mild cognitive impairment, intrathecal pain pump. Follows with Dr. Hilliard. Patient presented 4 days of increasing congestion, short of breath, cough, clear sputum, tired, run down, low-grade fever. Patient is found to be positive for influenza A and was started on Tamiflu. Also this causes his COPD to flare up, put on Solu-Medrol, admitted for the same. Patient is feeling a bit tired and run down. REVIEW OF SYSTEMS: CONSTITUTIONAL: Weak tired, low-grade fever. HEENT: Decreased hearing. RESPIRATORY: As above. CARDIOVASCULAR: None. GASTROINTESTINAL: Heartburn. GENITOURINARY: None. MUSCULOSKELETAL: None. DERMATOLOGICAL: Some dry skin. HEMATOLOGICAL: None. LYMPHATICS: None. PSYCHIATRY: Anxious and forgetful. NEUROLOGICAL: None. PAST MEDICAL HISTORY: COPD, GERD, hyperlipidemia, hypertension, prostate disorder, rheumatoid arthritis, home oxygen 2 L, low back pain with a pain pump being followed by Dr. Hilliard, cataract in the right eye, right eye injury with vision loss, shingles, chronic sinus disease, migraines, diverticulosis, restless legs syndrome, BPH, right carpal tunnel. PAST SURGICAL HISTORY: Right lens implant, right foot, toe surgery, left foot surgery, repair of left index finger, partial amputation, bilateral rotator cuff repair, pain pump. PSYCH HISTORY: Anxiety. SOCIAL HISTORY: Patient is helped out by his daughter quite a bit. Uses a cane and a walker, home oxygen 2 L. Patient stopped smoking way back in the 1960s. No alcohol. FAMILY HISTORY: Cirrhosis. HOME MEDICATIONS: 1. Requip 0.5 mg p.o. t.i.d. 2. Mucinex 1200 mg p.o. b.i.d. 3. Flomax 0.4 mg q.h.s. 4. Senokot 17.2 mg p.o. q.h.s. 5. Potassium 10 mEq p.o. daily. 6. Omeprazole 40 mg q.h.s.. 7. Nitrostat 0.4 sublingual q.5 p.r.n. 8. Multivitamin 1 tablet p.o. daily. 9. Morphine pain pump. 10.Mobic 50 mg p.o. daily. 11.Melatonin 5 mg q.h.s. 12.Synthroid 125 mcg p.o. daily. 13.Ativan 0.5 mg q.h.s. 14.Imdur ER 60 mg daily. 15.DuoNeb q.i.d. 16.[place] 10 one tablet p.o. b.i.d. p.r.n. 17.Gabapentin 800 mg t.i.d. 18.Lasix 20 mg p.o. daily. 19.Breo Ellipta 1 puff daily. 20.Flonase 1 spray each nostril daily p.r.n. 21. 50 mg p.o. q.h.s. 22.Aricept 10 mg q.h.s. 23.Cardia XT 120 mg p.o. daily. 24.Lipitor 20 mg p.o. q.h.s. PHYSICAL EXAMINATION: Vital signs on presentation, temperature 99, pulse 108, respiration 19, blood pressure 122/94, pulse ox 96% on 2 L. GENERAL APPEARANCE: Well built, BMI 37.6, sitting at the edge of the bed, tired- appearing. EYES: Pupils equal, conjunctivae are normal. HEENT: External appearance of nose and ears normal, oral cavity normal. NECK: JVD unable to assess. Mass not palpable. RESPIRATORY: Effort increased. LUNGS: Diminished breath sounds, mild wheezing. CARDIOVASCULAR: Heart is irregular, minimal edema. ABDOMEN: Distended, soft. Liver and spleen not palpable. LYMPHATICS: No lymph node palpable. PSYCHIATRY: Alert and oriented x3, mood is slightly anxious-appearing. NEUROLOGICAL: Pupils equal. Cranial nerves grossly intact. Power and sensation grossly intact. INVESTIGATIONS: White count 5.8, hemoglobin 13.0 potassium 4.0, BUN and creatinine are normal. Accu- Cheks are noted. Influenza type A RNA is positive. EKG tracing personally reviewed by me shows normal sinus rhythm, PVCs, Chest x-ray film personally reviewed by me. Unable to do so, as unable to pull up the . Chest x-ray report shows patchy infiltrates. ASSESSMENT: 1. Bilateral influenza A, pneumonitis. 2. Acute chronic obstructive pulmonary disease exacerbation. 3. Gastroesophageal reflux disease. 4. Essential hypertension. 5. Hyperlipidemia. 6. Benign prostatic hypertrophy. 7. Chronic rheumatoid arthritis. 8. Hypothyroid. 9. Chronic hypoxic and hypercapnic respiratory failure from chronic obstructive pulmonary disease. 10.Chronic diverticulosis, colonic. 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 12.Restless legs syndrome. 13.Chronic gait dysfunction, uses a cane and a walker. 14.Chronic pain syndrome has intrathecal pain pump per Dr. Hilliard. PLAN: Patient is started on Tamiflu, bronchodilators, Solu-Medrol. Care was discussed with the patient. Questions were answered. SARA / REGIS: [id number] /
[2018-06-13 16:56] LABS: Glucose,Whole Blood 209 mg/dL (75-99)
[2018-06-13 20:42] LABS: Glucose,Whole Blood 279 mg/dL (75-99)
[2018-06-13] MEDS: SENNOSIDES 8.6 MG TAB PO SCH (20:55)
[2018-06-13] MEDS: ATORVASTATIN 20 MG TAB PO SCH (20:55)
[2018-06-13] MEDS: TAMSULOSIN 0.4 MG CAP.ER.24H PO SCH (20:55)
[2018-06-13] MEDS: LORazepam 0.5 MG TAB PO PRN (20:56)
[2018-06-13] MEDS: MELATONIN 5 MG TABLET PO SCH (20:57)
[2018-06-13] MEDS: OSELTAMIVIR 60 MG/10 ML ORAL SYRINGE PO SCH (20:57)
[2018-06-13] MEDS: DOXEPIN 25 MG CAP PO SCH (20:57)
[2018-06-13] MEDS: DONEPEZIL 10 MG TAB PO SCH (20:57)
[2018-06-13] MEDS: PANTOPRAZOLE 40 MG TABLET PO SCH (22:33)
[2018-06-13] MEDS: ALBUTEROL NEBULIZED 2.5 MG/3 ML INHALATION PRN (23:56)
[2018-06-14] MEDS: methylPREDNISolone SOD SUCCI 40 MG/ML 1 ML VIAL IV SCH ×3 (00:21→17:26)
[2018-06-14] MEDS: HYDROcodone/APAP 10-325MG 1 EACH TAB PO PRN ×2 (03:08→23:11)
[2018-06-14] MEDS: ALBUTEROL NEBULIZED 2.5 MG/3 ML INHALATION PRN (03:41)
[2018-06-14] MEDS: LEVOTHYROXINE 88 MCG TAB PO SCH (06:47)
[2018-06-14 07:12] LABS: Glucose,Whole Blood 172 mg/dL (75-99)
[2018-06-14] MEDS: POTASSIUM CHLORIDE ER 10 MEQ TAB.ER.PRT PO SCH (08:02)
[2018-06-14] MEDS: DILTIAZEM CD 120 MG CAP.ER.24H PO SCH (08:02)
[2018-06-14] MEDS: FUROSEMIDE 20 MG TAB PO SCH (08:02)
[2018-06-14] MEDS: GABAPENTIN 400 MG CAP PO SCH ×3 (08:02→22:25)
[2018-06-14] MEDS: ISOSORBIDE MONONITRATE ER 60 MG TAB.ER.24H PO SCH (08:02)
[2018-06-14] MEDS: MELOXICAM 7.5 MG TAB PO SCH (08:02)
[2018-06-14] MEDS: INSULIN ASPART (NovoLOG) 100 UNIT/ML VIAL SQ SCH ×4 (08:03→22:24)
[2018-06-14] MEDS: guaiFENesin 600 MG TABLET.ER PO SCH ×2 (08:03→22:24)
[2018-06-14] MEDS: OSELTAMIVIR 60 MG/10 ML ORAL SYRINGE PO SCH ×2 (08:04→22:26)
[2018-06-14] MEDS: IPRATROPIUM-ALBUTEROL 3 ML NEB INHALATION SCH ×4 (08:13→20:00)
[2018-06-14] MEDS: SYMBICORT 80-4.5 MCG INHALER INHALATION SCH ×2 (08:13→20:00)
[2018-06-14 11:12] LABS: Glucose,Whole Blood 277 mg/dL (75-99)
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
[2018-06-14] MEDS: MULTIVITAMINS, THERA 1 EACH TAB PO SCH (13:03)
[2018-06-14 17:06] LABS: Glucose,Whole Blood 175 mg/dL (75-99)
[2018-06-14 20:13] LABS: Glucose,Whole Blood 190 mg/dL (75-99)
[2018-06-14] MEDS: ATORVASTATIN 20 MG TAB PO SCH (22:20)
[2018-06-14] MEDS: PANTOPRAZOLE 40 MG TABLET PO SCH (22:25)
[2018-06-14] MEDS: SENNOSIDES 8.6 MG TAB PO SCH (22:25)
[2018-06-14] MEDS: TAMSULOSIN 0.4 MG CAP.ER.24H PO SCH (22:26)
[2018-06-14] MEDS: LORazepam 0.5 MG TAB PO PRN (23:10)
[2018-06-14] MEDS: DONEPEZIL 10 MG TAB PO SCH (23:10)
[2018-06-14] MEDS: DOXEPIN 25 MG CAP PO SCH (23:10)
[2018-06-14] MEDS: MELATONIN 5 MG TABLET PO SCH (23:22)
--- NOTE | 2018-06-14 23:44 | PN ---
PROGRESS NOTE DATE OF SERVICE: 06/14/2018. PRESENTING COMPLAINT: Cough congestion. INTERVAL HISTORY: The patient has multiple medical problems, presented with COPD exacerbation and acute influenza A pneumonitis. Cough is better, decreased congestion. Did tolerate a diet, up to the bathroom. Overall feeling better. REVIEW OF SYSTEMS: Done for constitutional, cardiovascular, GI, pulmonary; relevant findings as above. CURRENT MEDICATIONS: Reviewed and include bronchodilators, Tamiflu, IV Solu-Medrol. PHYSICAL EXAMINATION: Temperature 98.6, pulse 109, respirations 18, blood pressure 107/69, pulse ox 94 percent on 2 L. GENERAL: Sitting up, looking better. EYES: Pupils equal. Conjunctivae normal. NECK: JVD unable to assess. Mass not palpable. RESPIRATORY: Effort increased. LUNGS: Less wheezing, improved air entry. CARDIOVASCULAR: Heart is irregular. Minimal edema. ABDOMEN: Distended, soft. Liver and spleen not palpable. PSYCHIATRY: Alert and oriented x3. Mood and affect normal. INVESTIGATIONS: Accu-Cheks are noted. ASSESSMENT: 1. Bilateral influenza A pneumonitis with clinical response. 2. Acute chronic obstructive pulmonary disease exacerbation. 3. Gastroesophageal reflux disease. 4. Essential hypertension. 5. Hyperlipidemia. 6. Benign prostatic hypertrophy. 7. Chronic rheumatoid arthritis. 8. Hypothyroid. 9. Chronic hypoxic and hypercapnic respiratory failure from underlying chronic obstructive pulmonary disease. 10.Chronic diverticulosis colonic. 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 12.Restless legs syndrome. 13.Chronic gait dysfunction uses a cane and a walker. 14.Chronic pain syndrome with intrathecal pain pump per Dr. Hilliard. PLAN: Overall doing much better. Should be able to hopefully go home tomorrow. MMODL / IJN: [id number] /
[2018-06-15] MEDS ORDERED: LEVOTHYROXINE 88 MCG TAB ONE (05:40)
[2018-06-15] MEDS ORDERED: ALBUTEROL NEBULIZED 2.5 MG/3 ML INHALATION ONE (05:40)
[2018-06-15] MEDS: LEVOTHYROXINE 88 MCG TAB PO SCH (06:24)
[2018-06-15 06:48] LABS: Glucose,Whole Blood 155 mg/dL (75-99)
[2018-06-15] MEDS: SYMBICORT 80-4.5 MCG INHALER INHALATION SCH (07:31)
[2018-06-15] MEDS: IPRATROPIUM-ALBUTEROL 3 ML NEB INHALATION SCH ×2 (07:47→10:46)
[2018-06-15] MEDS ORDERED: predniSONE 20 MG TAB PO SCH (09:00)
[2018-06-15] MEDS: FUROSEMIDE 20 MG TAB PO SCH (09:35)
[2018-06-15] MEDS: guaiFENesin 600 MG TABLET.ER PO SCH (09:35)
[2018-06-15] MEDS: POTASSIUM CHLORIDE ER 10 MEQ TAB.ER.PRT PO SCH (09:35)
[2018-06-15] MEDS: GABAPENTIN 400 MG CAP PO SCH (09:35)
[2018-06-15] MEDS: INSULIN ASPART (NovoLOG) 100 UNIT/ML VIAL SQ SCH ×2 (09:35→12:57)
[2018-06-15] MEDS: MELOXICAM 7.5 MG TAB PO SCH (09:36)
[2018-06-15] MEDS: ISOSORBIDE MONONITRATE ER 60 MG TAB.ER.24H PO SCH (09:38)
[2018-06-15] MEDS: DILTIAZEM CD 120 MG CAP.ER.24H PO SCH (09:38)
[2018-06-15] MEDS: OSELTAMIVIR 60 MG/10 ML ORAL SYRINGE PO SCH (09:43)
[2018-06-15 11:18] LABS: Glucose,Whole Blood 191 mg/dL (75-99)
--- NOTE | 2018-06-15 11:48 | P.PN ---
Subjective Progress Note Date: 06/15/18 Principal diagnosis: Acute influenza a upper respiratory tract infection causing acute exacerbation of COPD This is an 83-year-old white male with history of severe COPD, and chronic hypoxic respiratory failure, multiple medical problems as listed below including hypertension, rheumatoid arthritis, hypothyroidism, hyperlipidemia, patient was last admitted to [facility] about 6 weeks ago with symptoms of COPD exacerbation and some degree of fluid overload. Seen at the time by Dr. Pepe. This time, the patient came in mostly with symptoms of cough, santos rtness of breath. Cough is nonproductive, dry hacking cough, patient had a T- max of 99.4 upon presentation to the ER. His influenza screening was positive. Hence the patient was admitted with the impression of acute exacerbation of COPD, and acute influenza infection. Chest x-ray showed atelectasis, possible infiltrate in the left lower lobe. Patient was admitted, placed on bronchodilators, Tamiflu, and this consult was initiated. According to the patient he had a slight improvement since he was admitted, and overall he seems to be feeling better. Patient describes generalized aches and pains, denies headaches, denies sore throat, denies blurred vision, denies nausea vomiting abdominal pain, denies melena no hematemesis no dysuria and no frequency no urgency. According to him he just doesn't feel well. The patient is seen today 06/15/2018 in follow-up on the regular medical floor. He is currently up ambulating in his room. Awake and alert in no acute distress. He states he is breathing is back to his baseline. He is anxious to go home. He is maintaining good O2 saturations in the 90s on 2 L/m per nasal cannula. He's been afebrile. Hemodynamically stable. He remains on bronchodilators, Symbicort, prednisone. Continued on Tamiflu. Objective - Vital Signs Vital signs: Vital Signs Temp 97.0 F L 06/15/18 04:29 Pulse 84 06/15/18 10:54 Resp 18 06/15/18 04:29 BP 122/66 06/15/18 04:29 Pulse Ox 94 L 06/15/18 04:29 Intake & Output 06/14/18 06/15/18 06/15/18 18:59 06:59 18:59 Intake Total 1380 Balance 1380 Intake: Oral 1380 Other: Voiding Method Toilet Toilet # Voids 3 3 - Exam GENERAL EXAM: Alert, active, comfortable in no apparent distress. On 2 L nasal cannula HEAD: Normocephalic. EYES: Normal reaction of pupils, equal size. NOSE: Clear with pink turbinates. THROAT: No erythema or exudates. NECK: No masses, no JVD. CHEST: No chest wall deformity. LUNGS: Equal air entry with no crackles, wheeze, rhonchi or dullness. Diminished. CVS: S1 and S2 normal with no audible murmur, regular rhythm. ABDOMEN: No hepatosplenomegaly, normal bowel sounds, no guarding or rigidity. SPINE: No scoliosis or deformity SKIN: No rashes CENTRAL NERVOUS SYSTEM: No focal deficits, tone is normal in all 4 extremities. EXTREMITIES: There is no peripheral edema. No clubbing, no cyanosis. Peripheral pulses are intact. - Labs CBC & Chem 7: 06/12/18 16:05 06/12/18 16:05 Labs: Abnormal Lab Results - Last 24 Hours (Table) 06/14/18 06/14/18 06/15/18 Range/Units 17:04 20:12 06:47 POC Glucose (mg/dL) 175 H 190 H 155 H (75-99) mg/dL 06/15/18 Range/Units 11:17 POC Glucose (mg/dL) 191 H (75-99) mg/dL Assessment and Plan Assessment: Impression: #1 Acute influenza A upper respiratory infection. #2 Acute exacerbation of COPD, most likely triggered by acute influenza i nfection. #3 Left lower lobe atelectasis, strongly doubt infiltrate. #4 Chronic hypoxic respiratory failure in a patient utilizing oxygen in the outpatient setting mainly at night at 2 L/m per nasal cannula. #5 Dementia. #6 Hypertension. #7 Hypothyroidism. #8 Benign prostatic hypertrophy. #9 Chronic pain syndrome utilizing a pain pump. #10 Gastric esophageal reflux disease. #11 Rheumatoid arthritis. 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 #13 Diverticulosis. Plan: The patient was seen and evaluated by Dr. Diaz. He is cleared for discharge from the pulmonary standpoint. Continue his home pulmonary medications. Complete his course of Tamiflu. Complete a course of prednisone taper. Follow- up in our office in 1-2 weeks' time. He is however encouraged to call sooner with any recurrence of symptoms or other questions or concerns. I, the cosigning physician, performed a history & physical examination of the patient. Lungs sounds clear, diminished. Maintaining good O2 saturations in the 90s on 2 L/m per nasal cannula. I discussed the assessment and plan of care with my nurse practitioner, Hailey Oh. I attest to the above note as dictated by her.
[2018-06-15 12:32] VITALS: BP 107/65; PULSE 114; RESP 17; TEMP 98.6
[2018-06-15] MEDS: MULTIVITAMINS, THERA 1 EACH TAB PO SCH (12:57)
--- NOTE | 2018-06-18 08:20 | DS ---
DISCHARGE SUMMARY DATE OF ADMISSION: June 12, 2018. DATE OF DISCHARGE: June 15, 2018. FINAL DIAGNOSES: 1. Bilateral influenza A pneumonitis, POA. 2. Acute chronic obstructive pulmonary disease exacerbation from above. 3. Gastroesophageal reflux disease. 4. Essential hypertension. 5. Hyperlipidemia. 6. Benign prostatic hypertrophy. 7. Chronic rheumatoid arthritis. 8. Hypothyroid. 9. Chronic hypoxic and hypercapnic respiratory failure from underlying chronic obstructive pulmonary disease. 10.Chronic colonic diverticulosis. 11.Mild cognitive impairment from underlying late onset Alzheimer's dementia. 12.Restless legs syndrome. 13.Chronic gait dysfunction uses a cane and a walker. 14.Chronic pain syndrome with intrathecal pain pump being followed by Dr. Hilliard. HOSPITAL COURSE: This patient presented with acute COPD exacerbation from underlying influenza A pneumonitis, treated with Tamiflu bronchodilators. Doing much better by the time of discharge. Up and about, tolerating a diet. PHYSICAL EXAMINATION: Temperature 98.6, pulse 84, respiration 17, blood pressure 107/55, pulse ox 93 percent on 2 L. Lungs improved air entry. Cardiovascular 1st and 2nd sounds normal. PSYCH: AO x3. INVESTIGATIONS: Accu-Cheks are noted. CONSULTATION: Dr. Diaz from Pulmonary. DISCHARGE MEDICATIONS: 1. Lipitor 20 mg q.h.s. 2. Aricept 10 mg q.h.s. 3. Imdur ER 60 mg p.o. daily. 4. Synthroid 135 mcg p.o. daily. 5. Omeprazole 40 mg q.h.s. 6. Flomax 0.4 mg q.h.s. 7. Requip 0.5 mg t.i.d. 8. Morphine pain pump. 9. Senna 17.2 mg p.o. q.h.s. 10.Multivitamin 1 tablet p.o. daily. 11.Nitrostat 0.4 sublingual q.5 p.r.n. 12.Cardia XT 120 mg p.o. daily. 13.Sinequan 50 mg p.o. q.h.s. 14.Flonase 1 spray each nostril daily p.r.n. 15.Breo Ellipta 100/25 1 puff daily. 16.Mobic 50 mg p.o. daily. 17.Mucinex 200 mg p.o. b.i.d. 18.DuoNeb q.i.d. 19.Melatonin 5 mg q.h.s. 20.Lasix 20 mg p.o. daily. 21.Gabapentin 800 mg t.i.d. 22.Sun 10 one tablet b.i.d. p.r.n. 23.Ativan 0.5 p.o. t.i.d. p.r.n. 24.Potassium 10 mEq p.o. daily. 25.Tamiflu 75 mg q.12 10 capsules. 26.Prednisone taper. FOLLOWUP: Follow up with Dr. Elkins on June 23, 2018. Follow up with Dr. Diaz. Copy to Dr. Elkins. MMODL / IJN: [id number] /
== END 2018-06-15 15:50 | disposition home or self-care (01) | DRG 194 ==
LOC: EC 15:17 → 3NMEDONC 17:37
PROVIDERS: ADMIT Hospitalist; ATTEND Hospitalist
DX: J10.00 Influenza due to other identified influenza virus with unspecified type of pneumonia (principal); J44.0 Chronic obstructive pulmonary disease with (acute) lower respiratory infection; J44.1 Chronic obstructive pulmonary disease with (acute) exacerbation; J96.11 Chronic respiratory failure with hypoxia; J96.12 Chronic respiratory failure with hypercapnia; J98.11 Atelectasis; E03.9 Hypothyroidism, unspecified; E78.5 Hyperlipidemia, unspecified; F02.80 Dementia in other diseases classified elsewhere, unspecified severity, without behavioral disturbance, psychotic disturbance, mood disturbance, and anxiety; G25.81 Restless legs syndrome; G30.1 Alzheimer's disease with late onset; G89.4 Chronic pain syndrome; H54.7 Unspecified visual loss; I11.0 Hypertensive heart disease with heart failure; I50.9 Heart failure, unspecified; K21.9 Gastro-esophageal reflux disease without esophagitis; K57.30 Diverticulosis of large intestine without perforation or abscess without bleeding; M06.9 Rheumatoid arthritis, unspecified; N40.0 Benign prostatic hyperplasia without lower urinary tract symptoms; Z79.1 Long term (current) use of non-steroidal anti-inflammatories (NSAID); Z79.890 Hormone replacement therapy; Z79.899 Other long term (current) drug therapy; Z79.891 Long term (current) use of opiate analgesic; Z96.89 Presence of other specified functional implants; Z80.1 Family history of malignant neoplasm of trachea, bronchus and lung; Z82.49 Family history of ischemic heart disease and other diseases of the circulatory system; Z86.73 Personal history of transient ischemic attack (TIA), and cerebral infarction without residual deficits; Z87.891 Personal history of nicotine dependence; Z98.41 Cataract extraction status, right eye; Z96.1 Presence of intraocular lens; H26.9 Unspecified cataract; M54.9 Dorsalgia, unspecified; R26.9 Unspecified abnormalities of gait and mobility; Z87.01 Personal history of pneumonia (recurrent)
CPT/HCPCS: 36415; 71046; 80053; 83735; 83880; 84484; 85025; 85610; 85730; 87502; 93005; 94640; 96365; 96367; 96375; 99285

== ENCOUNTER 2018-07-31 15:35 | Inpatient (IN) | payer MEDICARE, BC ==
[2018-07-31] MEDS ORDERED: methylPREDNISolone SOD SUCCI 125 MG/2 ML VIAL IV STA (15:54)
[2018-07-31] MEDS ORDERED: IPRATROPIUM-ALBUTEROL 3 ML NEB INHALATION STA (15:54)
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
--- NOTE | 2018-07-31 16:24 | XR ---
EXAMINATION TYPE: XR chest 2V DATE OF EXAM: 07/31/2018 COMPARISON: 06/12/2018 HISTORY: Shortness of breath TECHNIQUE: Frontal and lateral views of the chest are obtained. FINDINGS: Scattered senescent parenchymal changes noted. Hyperinflation compatible with COPD. No evidence for infiltrate. No evidence for atelectasis. Heart size is stable. Mediastinal structures are stable and grossly unremarkable. No evidence for hilar prominence. Degenerative changes dorsal spine. IMPRESSION: 1. No evidence for acute pulmonary disease.
[2018-07-31 16:42] LABS: Basophils % (A) 0 %; Eosinophils # (A) 0.3 k/uL (0-0.7); Eosinophils % (A) 7 %; HCT 37.1 % (39.0-53.0); Lymphocytes # (A) 1.2 k/uL (1.0-4.8); Lymphocytes % (A) 24 %; MCH 31.4 pg (25.0-35.0); MCHC 32.3 g/dL (31.0-37.0); MCV 97.2 fL (80.0-100.0); Mean Platelet Volume 6.7; Monocytes # (A) 0.2 k/uL (0-1.0); Monocytes % (A) 4 %; Neutrophils # (A) 3.1 k/uL (1.3-7.7); Neutrophils % (A) 63 %; Platelet Count 119 k/uL (150-450); RBC 3.82 m/uL (4.30-5.90); RDW 14.5 % (11.5-15.5)
[2018-07-31 16:50] LABS: INR 0.9 (<1.2); Prothrombin Time 9.5 sec (9.0-12.0)
[2018-07-31 16:51] LABS: Albumin 3.6 g/dL (3.5-5.0); Calcium 8.5 mg/dL (8.4-10.2); Potassium 4.1 mmol/L (3.5-5.1); Total Bilirubin 0.4 mg/dL (0.2-1.3); Total Protein 5.9 g/dL (6.3-8.2)
[2018-07-31] MEDS: AZITHROMYCIN 500 MG TAB PO SCH (17:22)
[2018-07-31 19:34] VITALS: BMI 38.7
[2018-07-31] MEDS ORDERED: NITROGLYCERIN SL TABS 0.4 MG TAB SUBLINGUAL PRN (20:16)
[2018-07-31] MEDS ORDERED: LORazepam 0.5 MG TAB PO PRN (20:16)
[2018-07-31] MEDS: IPRATROPIUM-ALBUTEROL 3 ML NEB INHALATION SCH (20:21)
[2018-07-31 20:58] LABS: Glucose,Whole Blood 180 mg/dL (75-99)
[2018-07-31] MEDS: PATIENT'S OWN (Morphine Pain Pump 1 DOSE) INTRATHECA SCH (21:02)
[2018-07-31] MEDS: MELATONIN 5 MG TABLET PO SCH (21:30)
[2018-07-31] MEDS: TAMSULOSIN 0.4 MG CAP.ER.24H PO SCH (21:30)
[2018-07-31] MEDS: FINASTERIDE 5 MG TAB PO SCH (21:30)
[2018-07-31] MEDS: GABAPENTIN 400 MG CAP PO SCH (21:30)
[2018-07-31] MEDS: DOXEPIN 25 MG CAP PO SCH (21:30)
[2018-07-31] MEDS: guaiFENesin 600 MG TABLET.ER PO SCH (21:30)
[2018-07-31] MEDS: DONEPEZIL 10 MG TAB PO SCH (21:30)
[2018-07-31] MEDS: INSULIN ASPART (NovoLOG) 100 UNIT/ML VIAL SQ SCH (21:31)
[2018-07-31] MEDS: SENNOSIDES 8.6 MG TAB PO SCH (21:31)
[2018-07-31] MEDS: PANTOPRAZOLE 40 MG TABLET PO SCH (21:31)
[2018-07-31] MEDS: ATORVASTATIN 20 MG TAB PO SCH (21:31)
[2018-08-01] MEDS ORDERED: methylPREDNISolone SOD SUCCI 125 MG/2 ML VIAL IV SCH
--- NOTE | 2018-08-01 00:29 | HP ---
HISTORY AND PHYSICAL DATE OF ADMISSION: 07/31/2018 DATE OF SERVICE: 07/31/2018 PRESENTING COMPLAINT: Short of breath. HISTORY OF PRESENTING COMPLAINT: This is a very pleasant 83-year-old patient who follows with Dr. Elikns out of [place] and Dr. Diaz as his single end sewer. Chronic stable medical conditions include GERD, hypertension, BPH, rheumatoid arthritis, on home oxygen at 2 liters, diverticulosis, restless legs syndrome, mild cognitive impairment, intrathecal pain pump, for which he follows with Dr. Hilliard. Patient presented with 2-3 days of increasing shortness of breath, cough, yellow-brown sputum. No obvious fever or chills. Decreased appetite. Tired, rundown. Patient in the ER was given bronchodilators, steroids, with which he felt a little bit better. Patient's appetite is fair. REVIEW OF SYSTEMS: CONSTITUTIONAL: Tired. HEENT: Decreased hearing. RESPIRATORY: As above. CARDIOVASCULAR: As above. GASTROINTESTINAL: Heartburn. GENITOURINARY: None. MUSCULOSKELETAL: Chronic pain in the joints. DERMATOLOGICAL: Dry skin. HEMATOLOGICAL: None. LYMPHATICS: None. PSYCHIATRY: No anxiety. A bit forgetful. NEUROLOGICAL: None. PAST MEDICAL HISTORY: 1. COPD. 2. GERD. 3. Hyperlipidemia. 4. Hypertension. 5. Prostate disorder. 6. Rheumatoid arthritis. 7. Home oxygen at 2 liters. 8. Low back pain with a pain pump, being followed by Dr. Hilliard. 9. Cataract in the right eye. 10.Right eye injury with vision loss. 11.Shingles. 12.Chronic sinus disease. 13.Migraines. 14.Diverticulosis. 15.Restless legs syndrome. 16.BPH. 17.Right carpal tunnel. PAST SURGICAL HISTORY: 1. Right lens implant. 2. Right foot right toe surgery. 3. Left foot surgery. 4. Repair of left index finger, partial amputation. 5. Bilateral rotator cuff repair. 6. Pain pump. PSYCH HISTORY: Anxiety. SOCIAL HISTORY: The patient is helped out by his daughter. Uses a cane and a walker, home oxygen 2 L. The patient stopped smoking way back. No alcohol. FAMILY HISTORY: Cirrhosis. HOME MEDICATIONS: 1. Requip 0.5 mg p.o. t.i.d. 2. Mucinex 1200 mg b.i.d. 3. Flomax 0.4 mg at bedtime. 4. Senokot 17.2 mg at bedtime. 5. Potassium 10 mEq a day. 6. Omeprazole 40 mg at bedtime. 7. Nitrostat 0.4 sublingually q.5 p.r.n. 8. Multivitamin 1 tablet p.o. daily. 9. Morphine pain pump. 10.Mobic 15 mg p.o. daily. 11.Melatonin 5 mg at bedtime. 12.Synthroid 175 mcg a day. 13.Ativan 0.5 mg t.i.d. p.r.n. 14.Imdur 60 mg a day. 15.DuoNeb q.i.d. 16.[place] 10 one tablet p.o. b.i.d. p.r.n. 17.Gabapentin 800 mg t.i.d. 18.Lasix 20 mg p.o. daily. 19.Breo Ellipta 100/25 one puff daily. 20.Flonase 1 spray each nostril daily p.r.n. 21.Proscar 5 mg at bedtime. 22.Doxepin 50 mg at bedtime. 23.Aricept 10 mg at bedtime. 24.Cardia XT 120 mg p.o. daily. 25.Lipitor 20 mg at bedtime. ALLERGIES: 1. IV CONTRAST DYE. 2. PENICILLIN. PHYSICAL EXAMINATION: VITAL SIGNS ON PRESENTATION: Temperature 99.3, pulse 108, respiration 20, blood pressure 128/74, pulse ox 91% on room air. GENERAL APPEARANCE: Well built; BMI 38.7. Sitting on the edge of the bed. A bit tired- appearing. EYES: Pupils equal. Conjunctivae normal. HEENT: External appearance of nose and ears normal. Oral cavity normal. NECK: JVD not raised. Mass not palpable. RESPIRATORY: Effort increased. LUNGS: Diminished breath sounds. Prolonged expiration and wheezing. CARDIOVASCULAR: First and second sounds normal. No edema. ABDOMEN: Soft, non-tender. Liver and spleen not palpable. Pain pump in place. LYMPHATIC: No lymph node palpable in neck or axillae. PSYCHIATRY: Alert and oriented x3. Mood and affect normal. NEUROLOGICAL: Pupils equal. Cranial nerves grossly intact. Power and sensation grossly intact. INVESTIGATIONS: Reviewed in the clinical context. White count 5, hemoglobin 12, potassium 4.1, BUN 15, creatinine 1.1. EKG tracing, personally reviewed by me, shows normal sinus rhythm, some prolonged QT interval. Chest x-ray film, personally reviewed by me, shows no obvious infiltrates. ASSESSMENT: 1. Acute chronic obstructive pulmonary disease exacerbation with acute bronchitis. 2. Gastroesophageal reflux disease. 3. Essential hypertension. 4. Hyperlipidemia. 5. Benign prostatic hypertrophy. 6. Chronic rheumatoid arthritis. 7. Hypothyroid. 8. Chronic hypoxic and hypercapnic respiratory failure from underlying chronic obstructive pulmonary disease. 9. Chronic colonic diverticulosis. 10.Mild cognitive impairment from underlying late-onset Alzheimer's dementia. 11.Restless legs syndrome. 12.Chronic gait dysfunction. Uses a cane and a walker. 13.Chronic pain syndrome with intrathecal pain pump, being followed by Dr. Hilliard. PLAN: The patient was put on bronchodilators, IV Solu-Medrol. He was started on Zithromax in the ER. Care was discussed with the patient. Questions were answered. Accu-Cheks will be followed. Dr. Diaz is consulted. MMSALEEML / ABUNDION: [id number] /
[2018-08-01] MEDS: methylPREDNISolone SOD SUCCI 40 MG/ML 1 ML VIAL IV SCH ×2 (00:38→09:25)
[2018-08-01] MEDS: IPRATROPIUM-ALBUTEROL 3 ML NEB INHALATION PRN ×2 (02:26→23:26)
[2018-08-01] MEDS: LEVOTHYROXINE 88 MCG TAB PO SCH (05:35)
[2018-08-01] MEDS: IPRATROPIUM-ALBUTEROL 3 ML NEB INHALATION SCH ×4 (07:27→20:01)
[2018-08-01 07:28] LABS: Glucose,Whole Blood 239 mg/dL (75-99)
[2018-08-01] MEDS ORDERED: SYMBICORT 80-4.5 MCG INHALER INHALATION SCH (08:00)
[2018-08-01] MEDS: ISOSORBIDE MONONITRATE ER 60 MG TAB.ER.24H PO SCH (09:25)
[2018-08-01] MEDS: MULTIVITAMINS, THERA 1 EACH TAB PO SCH (09:25)
[2018-08-01] MEDS: GABAPENTIN 400 MG CAP PO SCH ×3 (09:25→20:12)
[2018-08-01] MEDS: POTASSIUM CHLORIDE ER 10 MEQ TAB.ER.PRT PO SCH (09:25)
[2018-08-01] MEDS: guaiFENesin 600 MG TABLET.ER PO SCH ×2 (09:25→20:13)
[2018-08-01] MEDS: FUROSEMIDE 20 MG TAB PO SCH (09:25)
[2018-08-01] MEDS: MELOXICAM 7.5 MG TAB PO SCH (09:25)
[2018-08-01] MEDS: AZITHROMYCIN 500 MG TAB PO SCH (09:25)
[2018-08-01] MEDS: INSULIN ASPART (NovoLOG) 100 UNIT/ML VIAL SQ SCH ×4 (09:27→21:36)
[2018-08-01] MEDS: DILTIAZEM CD 120 MG CAP.ER.24H PO SCH (09:27)
[2018-08-01 11:36] LABS: Glucose,Whole Blood 215 mg/dL (75-99)
--- NOTE | 2018-08-01 11:48 | CONS ---
CONSULTATION PULMONARY/CRITICAL CARE CONSULT: DATE OF SERVICE: 08/01/2018 This is an 83-year-old male with a history of COPD. For the last 3 or 4 days, beginning last weekend, the patient developed increasing and progressive shortness of breath. He also was coughing and producing thick brown phlegm. He also had a slight temperature elevation. Not coughing up any blood. No chest pain or chest discomfort. He was wheezing. He had a very congested wet cough. Because of that, he decided to come in to be evaluated in the Emergency Room and he was admitted with a diagnosis of COPD exacerbation, complicated by purulent tracheobronchitis. The chest x-ray did not reveal an infiltrate. Currently, the patient is feeling a bit better. Not quite ready for discharge yet. His primary care physician is Dr. Elkins. He was admitted to Dr. Barajas's service. . HOME MEDICATIONS: Include Lipitor, Aricept, Imdur, Synthroid, omeprazole, Flomax, Requip, chronic pain syndrome Senokot, multivitamins, nitroglycerin tablets, diltiazem, Sinequan, Flonase nasal spray, Breo, meloxicam, guaifenesin, DuoNeb Lasix, gabapentin, Monclova, Ativan, potassium chloride, and melatonin. ALLERGIES: IV CONTRAST DYE and PENICILLIN. PAST MEDICAL HISTORY: Positive for COPD, gastroesophageal reflux disease, hyperlipidemia, hypertension, pneumonia, rheumatoid arthritis, hypothyroidism, chronic pain syndrome, restless legs syndrome, BPH, diverticulosis, migraine cephalgia, chronic sinus disease, cataracts, and carpal tunnel syndrome. SURGICAL HISTORY: Includes right eye cataract surgery with lens implant, colonoscopy, polypectomy, right foot toe surgery, left foot surgery, repair of index finger, bilateral rotator cuff surgery, pain pump insertion, recent EGD and recent circumcision. SOCIAL HISTORY: Positive for previous tobacco use. He smoked for many years. Does not smoke currently. Denies any alcohol use or illicit drug use. FAMILY HISTORY: Positive for liver cirrhosis, heart problems and cancer. Cancer was apparently lung cancer. REVIEW OF SYSTEMS: CONSTITUTIONAL: Negative. NEUROLOGIC: Negative. HEENT: Negative. CARDIOVASCULAR: Negative. PULMONARY: Shortness of breath, chest congestion, cough, wheezing and brown phlegm production. GI: Negative. : Negative. RHEUMATOLOGIC: Negative. IMMUNOLOGIC: Negative. ENDOCRINOLOGIC: Negative. DERMATOLOGIC: Negative. Current vital signs are reviewed. They include a temperature of 98.2, heart rate 100, respiratory rate 20, blood pressure 117/70, mean 85 and 2 L saturation of 94%. He appears in no acute distress. HEENT: Examination is grossly unremarkable. Nasal O2 in place. NECK: Supple. Full range of motion. No adenopathy, thyromegaly or neck vein distention. CARDIOVASCULAR: Examination reveals regular rhythm and rate. Heart rate right around 100 beats per minute. S1, S2 normal. No S3, S4, or murmur. LUNGS: Reveal some expiratory wheezes and rhonchi. Breath sounds are coarse. There is prolongation on forced maneuver. The patient coughs and wheezes on forced maneuver. Adventitious lung sounds are more prominent on forced maneuver. ABDOMEN: Soft. Bowel sounds are heard. No masses or tenderness. EXTREMITIES: Intact. No cyanosis, clubbing, or edema. SKIN: Without rash. NEUROLOGIC: Examination is brief but nonfocal. Chest x-ray does not reveal any acute abnormalities. LABORATORY DATA: Reviewed. White count 5, hemoglobin 12, hematocrit 37.1, platelet count 119,000. PT, INR, PTT normal. Sodium, potassium, chloride normal. CO2 of 31, anion gap is 5, BUN and creatinine were 15 and 1.10. The rest of the comprehensive metabolic profile were normal. Medications are reviewed. He is currently on Zithromax, Pulmicort, formoterol, DuoNeb and Solu-Medrol. These are all appropriate medications for his current condition. These were reviewed at the bedside. ASSESSMENT: 1. Chronic obstructive pulmonary disease exacerbation complicated by purulent tracheobronchitis, without katharina pneumonia. 2. Previous history of heavy tobacco use. 3. History of gastroesophageal reflux disease. 4. History of hyperlipidemia. 5. History of benign essential hypertension. 6. Prior history of pneumonia. 7. History of benign prostatic hypertrophy. 8. History of rheumatoid arthritis. 9. Hypothyroidism. 10.History of cataracts. 11.History of chronic back pain syndrome with pain pump insertion. 12.History of diverticulosis. 13.Migraine cephalgia. 14.Restless legs syndrome. 15.Previous history of shingles with post herpetic neuralgia. 16.Carpal tunnel syndrome. PLAN: The patient is on appropriate medications. Will continue to follow. Likely discharge in a day or 2. No additional recommendations are made. I did apprise the patient that the patient's chest x-ray was normal. The medications were checked at the bedside. Everything is appropriate including short-acting beta agonist, short-acting muscarinic antagonist, long-acting beta agonist, inhaled corticosteroids, systemic corticosteroids and antibiotics. MMODL / IJN: [id number] /
[2018-08-01] MEDS: methylPREDNISolone SOD SUCCI 125 MG/2 ML VIAL IV SCH ×3 (13:50→23:44)
[2018-08-01] MEDS: HYDROcodone/APAP 10-325MG 1 EACH TAB PO PRN ×2 (13:58→23:50)
[2018-08-01 16:39] LABS: Glucose,Whole Blood 157 mg/dL (75-99)
[2018-08-01] MEDS ORDERED: FUROSEMIDE 10 MG/ML 4 ML VIAL IV STA ×2 (19:36→22:01)
[2018-08-01] MEDS: FORMOTEROL FUMARATE 20 MCG/2 ML NEBU INHALATION SCH (20:01)
[2018-08-01] MEDS: BUDESONIDE 1 MG/2 ML NEBU INHALATION SCH (20:01)
[2018-08-01] MEDS: SENNOSIDES 8.6 MG TAB PO SCH (20:12)
[2018-08-01] MEDS: DONEPEZIL 10 MG TAB PO SCH (20:13)
[2018-08-01] MEDS: MELATONIN 5 MG TABLET PO SCH (20:13)
[2018-08-01] MEDS: ATORVASTATIN 20 MG TAB PO SCH (20:13)
[2018-08-01] MEDS: PANTOPRAZOLE 40 MG TABLET PO SCH (20:13)
[2018-08-01] MEDS: FINASTERIDE 5 MG TAB PO SCH (20:13)
[2018-08-01] MEDS: TAMSULOSIN 0.4 MG CAP.ER.24H PO SCH (20:13)
[2018-08-01 20:47] LABS: Glucose,Whole Blood 213 mg/dL (75-99)
[2018-08-01] MEDS: DOXEPIN 25 MG CAP PO SCH (21:36)
[2018-08-01] MEDS: PATIENT'S OWN (Morphine Pain Pump 1 DOSE) INTRATHECA SCH (21:37)
--- NOTE | 2018-08-01 22:43 | PN ---
PROGRESS NOTE DATE OF SERVICE: 08/01/2018 PRESENTING COMPLAINT: Short of breath. INTERVAL HISTORY: Patient was admitted with COPD exacerbation. Still has some wheezing, cough, slight sputum production. Did tolerate a diet. Lying in bed. Some pleuritic pain with coughing. REVIEW OF SYSTEMS: Done for constitutional, cardiovascular, GI, pulmonary; relevant findings as above. CURRENT MEDICATIONS: Reviewed. They include IV Solu-Medrol, DuoNeb. PHYSICAL EXAMINATION: Temperature 97.3, pulse 109, respiration 18, blood pressure 130/77, pulse ox 95% on room air. GENERAL APPEARANCE: Lying in bed, awake. Tired. EYES: Pupils equal. Conjunctivae normal. NECK: JVD not raised. Mass not palpable. RESPIRATORY: Effort increased. LUNGS: Diminished breath sounds. Prolonged expiration and wheezing. CARDIOVASCULAR: First and second sounds normal. No edema. ABDOMEN: Soft, non-tender. Liver and spleen not palpable. PSYCHIATRY: Alert and oriented x3. Mood and affect normal. INVESTIGATIONS: Accu-Cheks are noted: 215, 157, 217. ASSESSMENT: 1. Acute chronic obstructive pulmonary disease exacerbation with acute bronchitis, slow to respond. 2. Gastroesophageal reflux disease. 3. Essential hypertension. 4. Hyperlipidemia. 5. Benign prostatic hypertrophy. 6. Chronic rheumatoid arthritis. 7. Hypothyroid. 8. Chronic hypoxic and hypercapnic respiratory failure from underlying chronic obstructive pulmonary disease. 9. Chronic colonic diverticulosis. 10.Mild cognitive impairment from underlying late-onset Alzheimer's dementia. 11.Restless legs syndrome. 12.Chronic gait dysfunction. Uses a cane and a walker. 13.Chronic pain syndrome with intrathecal pain pump, being followed by Dr. Hilliard. PLAN: Continue with steroids, bronchodilators. Care was discussed with the patient. Encouraged to sit up on a chair. Will follow. MMODL / IJN: [id number] /
[2018-08-02] MEDS: IPRATROPIUM-ALBUTEROL 3 ML NEB INHALATION PRN (02:51)
[2018-08-02] MEDS: LEVOTHYROXINE 88 MCG TAB PO SCH (06:13)
[2018-08-02] MEDS: methylPREDNISolone SOD SUCCI 125 MG/2 ML VIAL IV SCH ×4 (06:13→23:20)
[2018-08-02 07:26] LABS: Glucose,Whole Blood 179 mg/dL (75-99)
[2018-08-02] MEDS: IPRATROPIUM-ALBUTEROL 3 ML NEB INHALATION SCH ×4 (07:50→19:25)
[2018-08-02] MEDS: BUDESONIDE 1 MG/2 ML NEBU INHALATION SCH ×2 (07:50→19:25)
[2018-08-02] MEDS: FORMOTEROL FUMARATE 20 MCG/2 ML NEBU INHALATION SCH ×2 (07:50→19:25)
[2018-08-02 08:44] LABS: Calcium 8.8 mg/dL (8.4-10.2); Potassium 4.6 mmol/L (3.5-5.1)
[2018-08-02] MEDS: INSULIN ASPART (NovoLOG) 100 UNIT/ML VIAL SQ SCH ×4 (08:51→21:11)
[2018-08-02] MEDS: POTASSIUM CHLORIDE ER 10 MEQ TAB.ER.PRT PO SCH (08:52)
[2018-08-02] MEDS: MULTIVITAMINS, THERA 1 EACH TAB PO SCH (08:52)
[2018-08-02] MEDS: AZITHROMYCIN 500 MG TAB PO SCH (08:52)
[2018-08-02] MEDS: guaiFENesin 600 MG TABLET.ER PO SCH ×2 (08:52→20:16)
[2018-08-02] MEDS: ISOSORBIDE MONONITRATE ER 60 MG TAB.ER.24H PO SCH (08:52)
[2018-08-02] MEDS: GABAPENTIN 400 MG CAP PO SCH ×3 (08:52→20:16)
[2018-08-02] MEDS: DILTIAZEM CD 120 MG CAP.ER.24H PO SCH (08:52)
[2018-08-02] MEDS: FUROSEMIDE 20 MG TAB PO SCH (08:52)
[2018-08-02] MEDS: MELOXICAM 7.5 MG TAB PO SCH (08:53)
[2018-08-02 12:43] LABS: Glucose,Whole Blood 274 mg/dL (75-99)
--- NOTE | 2018-08-02 13:42 | P.PN ---
Subjective Progress Note Date: 08/02/18 Principal diagnosis: Shortness of breath, exacerbation of chronic obstructive pulmonary disease with purulent tracheobronchitis On 08/02/2018 patient seen in follow-up on medical surgical floor. He is awake and alert, oriented 3, he sitting up in bed, he states his breathing has not improved significantly, still quite bronchospastic, coughing, and congested. Vital signs remain stable, room air pulse ox is 92%, patient is afebrile. Blood culture showed no growth. Today's labs have been reviewed, showed sodium of 139, potassium is 4.6, chloride is 99, CO2 is 32, B1 is 29 creatinine was 1.26. Patient is being treated with a combination of antibiotics, nebulized bronc hodilators, mucolytic's, and has received 2 doses of IV Lasix, and Solu-Medrol 60 mg every 6 hours. Objective - Vital Signs Vital signs: Vital Signs Temp 99.2 F 08/02/18 13:08 Pulse 71 08/02/18 13:08 Resp 18 08/02/18 13:08 BP 118/70 08/02/18 13:08 Pulse Ox 92 L 08/02/18 13:08 Intake & Output 08/01/18 08/02/18 08/02/18 18:59 06:59 18:59 Intake Total 500 Balance 500 Intake: Oral 500 Other: # Voids 3 3 3 # Bowel Movements 0 - Exam GENERAL EXAM: Alert, pleasant, obese 83-year-old white male, on room air, with pulse ox of 92% comfortable in no apparent distress. HEAD: Normocephalic/atraumatic. EYES: Normal reaction of pupils, equal size. Conjunctiva pink, sclera white. NOSE: Clear with pink turbinates. THROAT: No erythema or exudates. NECK: No masses, no JVD, no thyroid enlargement, no adenopathy. CHEST: No chest wall deformity. Symmetrical expansion. LUNGS: Equal air entry with diffuse wheezes and rhonchi CVS: Regular rate and rhythm, normal S1 and S2, no gallops, no murmurs, no rubs ABDOMEN: Soft, nontender. No hepatosplenomegaly, normal bowel sounds, no guarding or rigidity. EXTREMITIES: No clubbing, no edema, no cyanosis, 2+ pulses and upper and lower extremities. MUSCULOSKELETAL: Muscle strength and tone normal. SPINE: No scoliosis or deformity SKIN: No rashes CENTRAL NERVOUS SYSTEM: Alert and oriented -3. No focal deficits, tone is normal in all 4 extremities. PSYCHIATRIC: Alert and oriented -3. Appropriate affect. Intact judgment and insight. - Labs CBC & Chem 7: 07/31/18 16:27 08/02/18 07:46 Labs: Abnormal Lab Results - Last 24 Hours (Table) 08/01/18 08/01/18 08/02/18 Range/Units 16:35 20:42 07:24 Carbon Dioxide (22-30) mmol/L BUN (9-20) mg/dL Creatinine (0.66-1.25) mg/dL Glucose (74-99) mg/dL POC Glucose (mg/dL) 157 H 213 H 179 H (75-99) mg/dL 08/02/18 08/02/18 Range/Units 07:46 12:34 Carbon Dioxide 32 H (22-30) mmol/L BUN 29 H (9-20) mg/dL Creatinine 1.26 H (0.66-1.25) mg/dL Glucose 164 H (74-99) mg/dL POC Glucose (mg/dL) 274 H (75-99) mg/dL Microbiology - Last 24 Hours (Table) 07/31/18 16:27 Blood Culture - Preliminary Blood No Growth after 24 hours Assessment and Plan Plan: Assessment: #1. Acute exacerbation of chronic obstructive pulmonary disease complicated by purulent tracheobronchitis without katharina pneumonia #2. Previous history of heavy tobacco use #3. History of GERD/reflux #4. Hypertension, hyperlipidemia #5. Previous history of pneumonia #6. History of benign prostatic hypertrophy #7. Rheumatoid arthritis #8. Chronic back pain syndrome with pain pump insertion #9. History of diverticulosis #10. Migraine headache #11. Restless leg syndrome Plan: Continue current medical treatment, continue with empiric antibiotics, nebulized bronchodilators, Pulmicort and Perforomist, no fever or chills, vital signs are stable, will need another 24 hours of inpatient treatment, could probably considered for discharge home in next 24 hours if remains stable. I performed a history & physical examination of the patient and discussed their management with my nurse practitioner, Marta Herrera. I reviewed the nurse practitioner's note and agree with the documented findings and plan of care. Lung sounds are positive for diffuse wheezes and rhonchi. The findings and the impression was discussed with the patient. I attest to the documentation by the nurse practitioner. Time with Patient: Less than 30
[2018-08-02 16:42] LABS: Glucose,Whole Blood 425 mg/dL (75-99)
[2018-08-02 16:42] LABS: Glucose,Whole Blood 199 mg/dL (75-99)
[2018-08-02] MEDS: SENNOSIDES 8.6 MG TAB PO SCH (20:16)
[2018-08-02] MEDS: PANTOPRAZOLE 40 MG TABLET PO SCH (20:16)
[2018-08-02] MEDS: FINASTERIDE 5 MG TAB PO SCH (20:16)
[2018-08-02] MEDS: DONEPEZIL 10 MG TAB PO SCH (20:16)
[2018-08-02] MEDS: TAMSULOSIN 0.4 MG CAP.ER.24H PO SCH (20:16)
[2018-08-02] MEDS: ATORVASTATIN 20 MG TAB PO SCH (20:16)
[2018-08-02] MEDS: DOXEPIN 25 MG CAP PO SCH (20:17)
[2018-08-02] MEDS: MELATONIN 5 MG TABLET PO SCH (20:21)
[2018-08-02] MEDS: PATIENT'S OWN (Morphine Pain Pump 1 DOSE) INTRATHECA SCH (20:23)
[2018-08-02 20:51] LABS: Glucose,Whole Blood 284 mg/dL (75-99)
--- NOTE | 2018-08-03 00:34 | PN ---
PROGRESS NOTE DATE OF SERVICE: August 02, 2018. PRESENTING COMPLAINT: Short of breath. INTERVAL HISTORY: Patient with COPD exacerbation, wheezing, cough is slowly getting better. Patient did get some fluid overload yesterday, did get 1 dose of Lasix to which he felt better. Did tolerate some breakfast. Patient's daughter is visiting, sitting up at the edge of the bed. REVIEW OF SYSTEMS: Done for constitutional, cardiovascular, GI, pulmonary; relevant findings as above. CURRENT MEDICATIONS: Reviewed that include DuoNeb and IV Solu-Medrol. PHYSICAL EXAMINATION: VITAL SIGNS: Temperature 98.6, pulse 98, respirations 19, blood pressure 118/64, pulse ox 95% on room air. GENERAL APPEARANCE: Sitting up, awake. EYES: Pupils are equal. Conjunctivae normal. NECK: JVD not raised. Mass not palpable. RESPIRATORY: Effort increased. LUNGS: Decreased breath sounds. Prolonged expiration. CARDIOVASCULAR: 1st and 2nd sounds normal. Minimal edema. ABDOMEN: Soft, nontender. Liver and spleen not palpable. PSYCHIATRY: Alert and oriented x3. Mood and affect normal. INVESTIGATIONS: Accu-Cheks 279, 199. BUN 29, creatinine 1.26. ASSESSMENT: 1. Acute chronic obstructive pulmonary disease exacerbation. Acute bronchitis, improving. 2. Gastroesophageal reflux disease. 3. Essential hypertension. 4. Hyperlipidemia. 5. Benign prostatic hypertrophy. 6. Chronic rheumatoid arthritis. 7. Hypothyroid. 8. Chronic hypoxic and hypercapnic respiratory failure, underlying chronic obstructive pulmonary disease. 9. Chronic colonic diverticulosis. 10.Mild cognitive impairment from underlying late onset Alzheimer's dementia. 11.Restless legs syndrome. 12.Chronic gait dysfunction uses a cane and a walker. 13.Chronic pain syndrome with intrathecal pain pump being followed by Dr. Hilliard. 14.Acute pulmonary edema from fluids, improved with Lasix. PLAN: Care was discussed with the patient and daughter. We will cut back on the steroids. Overall doing better. Encouraged to ambulate. MMODL / IJN: [id number] /
[2018-08-03] MEDS: methylPREDNISolone SOD SUCCI 40 MG/ML 1 ML VIAL IV SCH ×2 (01:06→08:43)
[2018-08-03] MEDS: LEVOTHYROXINE 88 MCG TAB PO SCH (05:40)
[2018-08-03 07:42] LABS: Glucose,Whole Blood 192 mg/dL (75-99)
[2018-08-03 08:02] LABS: Calcium 8.8 mg/dL (8.4-10.2); Potassium 4.8 mmol/L (3.5-5.1)
[2018-08-03 08:19] VITALS: BP 148/84; RESP 16; TEMP 98.5
[2018-08-03] MEDS: GABAPENTIN 400 MG CAP PO SCH (08:41)
[2018-08-03] MEDS: POTASSIUM CHLORIDE ER 10 MEQ TAB.ER.PRT PO SCH (08:41)
[2018-08-03] MEDS: INSULIN ASPART (NovoLOG) 100 UNIT/ML VIAL SQ SCH ×2 (08:41→12:47)
[2018-08-03] MEDS: ISOSORBIDE MONONITRATE ER 60 MG TAB.ER.24H PO SCH (08:41)
[2018-08-03] MEDS: guaiFENesin 600 MG TABLET.ER PO SCH (08:41)
[2018-08-03] MEDS: MELOXICAM 7.5 MG TAB PO SCH (08:41)
[2018-08-03] MEDS: MULTIVITAMINS, THERA 1 EACH TAB PO SCH (08:41)
[2018-08-03] MEDS: DILTIAZEM CD 120 MG CAP.ER.24H PO SCH (08:41)
[2018-08-03] MEDS: FUROSEMIDE 20 MG TAB PO SCH (08:42)
[2018-08-03] MEDS: IPRATROPIUM-ALBUTEROL 3 ML NEB INHALATION SCH ×2 (08:52→12:12)
[2018-08-03] MEDS: FORMOTEROL FUMARATE 20 MCG/2 ML NEBU INHALATION SCH (08:52)
[2018-08-03] MEDS: BUDESONIDE 1 MG/2 ML NEBU INHALATION SCH (08:52)
[2018-08-03] MEDS: AZITHROMYCIN 500 MG TAB PO SCH (09:49)
[2018-08-03 11:34] LABS: Glucose,Whole Blood 204 mg/dL (75-99)
[2018-08-03 12:16] VITALS: PULSE 98
--- NOTE | 2018-08-03 13:02 | P.PN ---
Subjective Progress Note Date: 08/03/18 Principal diagnosis: Shortness of breath, exacerbation of chronic obstructive pulmonary disease with purulent tracheobronchitis On 08/02/2018 patient seen in follow-up on medical surgical floor. He is awake and alert, oriented 3, he sitting up in bed, he states his breathing has not improved significantly, still quite bronchospastic, coughing, and congested. Vital signs remain stable, room air pulse ox is 92%, patient is afebrile. Blood culture showed no growth. Today's labs have been reviewed, showed sodium of 139, potassium is 4.6, chloride is 99, CO2 is 32, B1 is 29 creatinine was 1.26. Patient is being treated with a combination of antibiotics, nebulized bronc hodilators, mucolytic's, and has received 2 doses of IV Lasix, and Solu-Medrol 60 mg every 6 hours. On 08/03/2016 patient seen in follow-up on medical surgical floor. He is awake and alert, he was able to get up and take a shower, shave today, still gets dyspneic with exertion, recovers well would rest, lung sounds are positive for only minimal wheezing, overall much less bronchospastic and congested since he came in, no fever no chills, today's lab work has been reviewed, BNP was done, electrolytes are within normal limits with the exception of CO2, which is chronically elevated. Renal profile stable, with BUN of 38, creatinine is 1.27. Objective - Vital Signs Vital signs: Vital Signs Temp 98.5 F 08/03/18 07:00 Pulse 98 08/03/18 12:24 Resp 16 08/03/18 07:00 BP 148/84 08/03/18 07:00 Pulse Ox 95 08/03/18 08:52 Intake & Output 08/02/18 08/03/18 08/03/18 18:59 06:59 18:59 Intake Total 350 Balance 350 Intake: Oral 350 Other: # Voids 3 1 - Exam GENERAL EXAM: Alert, pleasant, obese 83-year-old white male, on room air, with pulse ox of 92% comfortable in no apparent distress. HEAD: Normocephalic/atraumatic. EYES: Normal reaction of pupils, equal size. Conjunctiva pink, sclera white. NOSE: Clear with pink turbinates. THROAT: No erythema or exudates. NECK: No masses, no JVD, no thyroid enlargement, no adenopathy. CHEST: No chest wall deformity. Symmetrical expansion. LUNGS: Equal air entry with minimal wheezing CVS: Regular rate and rhythm, normal S1 and S2, no gallops, no murmurs, no rubs ABDOMEN: Soft, nontender. No hepatosplenomegaly, normal bowel sounds, no guarding or rigidity. EXTREMITIES: No clubbing, no edema, no cyanosis, 2+ pulses and upper and lower extremities. MUSCULOSKELETAL: Muscle strength and tone normal. SPINE: No scoliosis or deformity SKIN: No rashes CENTRAL NERVOUS SYSTEM: Alert and oriented -3. No focal deficits, tone is normal in all 4 extremities. PSYCHIATRIC: Alert and oriented -3. Appropriate affect. Intact judgment and insight. - Labs CBC & Chem 7: 07/31/18 16:27 08/03/18 07:35 Labs: Abnormal Lab Results - Last 24 Hours (Table) 08/02/18 08/02/18 08/02/18 Range/Units 16:38 16:40 20:50 Carbon Dioxide (22-30) mmol/L BUN (9-20) mg/dL Creatinine (0.66-1.25) mg/dL Glucose (74-99) mg/dL POC Glucose (mg/dL) 425 H 199 H 284 H (75-99) mg/dL 08/03/18 08/03/18 08/03/18 Range/Units 07:27 07:35 11:32 Carbon Dioxide 31 H (22-30) mmol/L BUN 38 H (9-20) mg/dL Creatinine 1.27 H (0.66-1.25) mg/dL Glucose 176 H (74-99) mg/dL POC Glucose (mg/dL) 192 H 204 H (75-99) mg/dL Microbiology - Last 24 Hours (Table) 07/31/18 16:27 Blood Culture - Preliminary Blood No Growth after 48 hours Assessment and Plan Plan: Assessment: #1. Acute exacerbation of chronic obstructive pulmonary disease complicated by purulent tracheobronchitis without katharina pneumonia #2. Previous history of heavy tobacco use #3. History of GERD/reflux #4. Hypertension, hyperlipidemia #5. Previous history of pneumonia #6. History of benign prostatic hypertrophy #7. Rheumatoid arthritis #8. Chronic back pain syndrome with pain pump insertion #9. History of diverticulosis #10. Migraine headache #11. Restless leg syndrome Plan: Clinically stable, he is improving, less bronchospastic and congested, vital signs are stable, no fever or chills. From pulmonary perspective the patient is stable for discharge home today, on prednisone taper, oral course of any mass, he can resume his maintenance inhalers and nebulized treatments I performed a history & physical examination of the patient and discussed their management with my nurse practitioner, Marta Herrera. I reviewed the nurse practitioner's note and agree with the documented findings and plan of care. Lung sounds are positive for minimal wheezes. The findings and the impression w as discussed with the patient. I attest to the documentation by the nurse practitioner. Time with Patient: Less than 30
--- NOTE | 2018-08-03 13:22 | CDI ---
Documentation Clarification Form Date: 08/03/2018 1:12:16 PM From: Velma Mireles RN CCDS Admit Date: 08/02/2018 8:38:00 PM Patient Name: Gabriel Renee Visit Number: [id number] Discharge Date: ATTENTION: The Clinical Documentation Specialists (CDI) and [facility] Coding Staff appreciate your assistance in clarifying documentation. Please respond to the clarification below the line at the bottom and electronically sign. The CDI & [facility] Coding staff will review the response and follow-up if needed. Please note: Queries are made part of the Legal Health Record. If you have any questions, please contact the author of this message via ITS. Dr. Ralph Barajas Chronic pain syndrome is documented in the H & P. Patient history/risk factors: 83 year old male presents to the ED for increasing shortness of breath. Clinical Indicators: Labs: Medical history of Low back pain and Restless leg syndrome. Vital Signs: 128/74 108 99.3 20 91% ra Other Clinical Indicators: Treatment: [place] 10/325 and Morphine Intrathecal pain pump Medication: Home medications [place] 10/325 and Morphine Intrathecal pain pump Consults: Absorption Operator In order to capture the severity of condition, if possible and in your professional opinion, please clarify the following: Abused Substance and specify type of known: * Chronic Opioid dependence * Other, please specify * Unable to determine * * (Last Revision: January 2017) _unable to determine__ MTDD
--- NOTE | 2018-08-04 05:51 | DS ---
DISCHARGE SUMMARY DATE OF ADMISSION: 07/31/2018 DATE OF SERVICE: 08/03/2018 FINAL DIAGNOSES: 1. Acute chronic obstructive pulmonary disease exacerbation from acute bronchitis. 2. Gastroesophageal reflux disease. 3. Essential hypertension. 4. Hyperlipidemia. 5. Benign prostatic hypertrophy. 6. Chronic rheumatoid arthritis. 7. Hypothyroid. 8. Chronic hypoxic and hypercapnic respiratory failure from underlying chronic obstructive pulmonary disease. 9. Chronic colonic diverticulosis. 10.Mild cognitive impairment from underlying late onset Alzheimer's dementia. 11.Restless legs syndrome. 12.Chronic gait dysfunction, uses a cane and a walker. 13.Chronic pain syndrome, exact etiology unable to determine with intrathecal pain pump being followed by Dr. Hilliard. 14.Acute pulmonary edema from fluids, improved with Lasix. CONSULTATION: Dr. Jones. HOSPITAL COURSE: This patient with presented with COPD exacerbation and acute bronchitis. Doing much better by the discharge. Care was discussed with the patient. Questions were answered. On examination, temperature 98.5, pulse 94, respiration 16, blood pressure 148/84, pulse ox 95% on 2 L. LUNGS: Fair entry. CARDIOVASCULAR: First and second sounds normal. DISCHARGE MEDICATIONS: 1. Lipitor 20 mg q.h.s. 2. Aricept 10 mg q.h.s. 3. Imdur ER 60 mg p.o. daily. 4. Synthroid 175 mcg p.o. daily. 5. Omeprazole 40 mg q.h.s. 6. Flomax 0.4 mg p.o. q.h.s. 7. Requip 0.5 mg p.o. t.i.d. 8. Morphine pain pump continuous. 9. Senokot 17.2 mg p.o. q.h.s. 10.Multivitamin 1 tablet p.o. daily. 11.Nitrostat 0.4 sublingual q.5 p.r.n. 12.Cardia XT 120 mg p.o. daily. 13.Sinequan 50 mg q.h.s. 14.Breo Ellipta 100/25 one puff daily. 15.Mobic 15 mg p.o. daily. 16.Mucinex 1200 mg p.o. b.i.d. 17.DuoNeb q.i.d. 18.Melatonin 5 mg q.h.s. one tablet. 19.Lasix 20 mg p.o. daily. 20.Gabapentin 800 mg p.o. t.i.d. 21.[place] 10 one tablet b.i.d. p.r.n. 22.Ativan 0.5 p.o. t.i.d. p.r.n. 23.Potassium 10 mEq p.o. daily. 24.Proscar 5 mg p.o. q.h.s. 25.Zithromax 500 mg p.o. daily 2 tablets. 26.Prednisone taper. Follow up with Dr. Diaz on 08/11/2018. Follow up with Dr. Fly Elkins in [place] on 08/07/2018. MMODL / IJN: [id number] /
== END 2018-08-03 15:56 | disposition home or self-care (01) | DRG 190 ==
LOC: EC 15:35 → 4MS4W 16:32 → 4SSUR 08-02 17:06 → OBSVTOIN 08-02 20:38
PROVIDERS: ADMIT Hospitalist; ATTEND Hospitalist
DX: J44.0 Chronic obstructive pulmonary disease with (acute) lower respiratory infection (principal); J81.0 Acute pulmonary edema; J96.11 Chronic respiratory failure with hypoxia; J96.12 Chronic respiratory failure with hypercapnia; J44.1 Chronic obstructive pulmonary disease with (acute) exacerbation; E03.9 Hypothyroidism, unspecified; E78.5 Hyperlipidemia, unspecified; F02.80 Dementia in other diseases classified elsewhere, unspecified severity, without behavioral disturbance, psychotic disturbance, mood disturbance, and anxiety; G25.81 Restless legs syndrome; G30.1 Alzheimer's disease with late onset; G43.909 Migraine, unspecified, not intractable, without status migrainosus; G89.4 Chronic pain syndrome; H54.7 Unspecified visual loss; I10 Essential (primary) hypertension; J20.9 Acute bronchitis, unspecified; K21.9 Gastro-esophageal reflux disease without esophagitis; K57.30 Diverticulosis of large intestine without perforation or abscess without bleeding; M06.9 Rheumatoid arthritis, unspecified; N40.0 Benign prostatic hyperplasia without lower urinary tract symptoms; Z79.1 Long term (current) use of non-steroidal anti-inflammatories (NSAID); Z79.890 Hormone replacement therapy; Z79.899 Other long term (current) drug therapy; Z80.1 Family history of malignant neoplasm of trachea, bronchus and lung; Z82.49 Family history of ischemic heart disease and other diseases of the circulatory system; Z86.19 Personal history of other infectious and parasitic diseases; Z87.01 Personal history of pneumonia (recurrent); Z87.891 Personal history of nicotine dependence; Z98.41 Cataract extraction status, right eye; Z96.1 Presence of intraocular lens; Z99.81 Dependence on supplemental oxygen; Z79.51 Long term (current) use of inhaled steroids; Z79.891 Long term (current) use of opiate analgesic; R26.9 Unspecified abnormalities of gait and mobility
CPT/HCPCS: 36415; 71046; 80048; 80053; 85025; 85610; 85730; 87040; 93005; 94640; 94760; 96374; 99285

== ENCOUNTER 2018-08-03 18:36 | Inpatient (IN) | payer MEDICARE, BC ==
[2018-08-03] MEDS ORDERED: NITROGLYCERIN OINT 1 INCH/GM PACKET TOPICAL STA (18:37)
[2018-08-03] MEDS ORDERED: FUROSEMIDE 10 MG/ML 4 ML VIAL IV STA (18:37)
[2018-08-03] MEDS ORDERED: IPRATROPIUM-ALBUTEROL 3 ML NEB INHALATION STA (18:37)
[2018-08-03 18:55] LABS: Basophils % (A) 0 %; Eosinophils % (A) 0 %; HCT 35.8 % (39.0-53.0); HGB 11.8 gm/dL (13.0-17.5); Lymphocytes % (A) 10 %; MCH 31.8 pg (25.0-35.0); MCHC 32.8 g/dL (31.0-37.0); MCV 96.9 fL (80.0-100.0); Mean Platelet Volume 7.3; Monocytes # (A) 0.4 k/uL (0-1.0); Monocytes % (A) 4 %; Neutrophils # (A) 8.4 k/uL (1.3-7.7); Neutrophils % (A) 84 %; Platelet Count 151 k/uL (150-450); RDW 14.6 % (11.5-15.5)
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
[2018-08-03 19:09] LABS: INR 0.9 (<1.2); Partial Thromboplastin Time 23.5 sec (22.0-30.0); Prothrombin Time 9.6 sec (9.0-12.0)
--- NOTE | 2018-08-03 19:17 | XR ---
EXAMINATION TYPE: XR chest 1V portable DATE OF EXAM: 08/03/2018 COMPARISON: 07/31/2018 HISTORY: Difficulty breathing TECHNIQUE: Single frontal view of the chest is obtained. FINDINGS: There is no heart failure nor confluent pneumonic infiltrate. There are chest leads. Costo phrenic angles are clear. Thoracic aorta is atheromatous. IMPRESSION: No active cardiopulmonary disease. There is clearing of the mild atelectasis to a large extent in the left lower lobe compared to last exam.
[2018-08-03 19:24] LABS: Albumin 3.6 g/dL (3.5-5.0); Calcium 8.7 mg/dL (8.4-10.2); Magnesium 2.4 mg/dL (1.6-2.3); Potassium 4.7 mmol/L (3.5-5.1); Total Bilirubin 0.4 mg/dL (0.2-1.3)
[2018-08-03] MEDS ORDERED: NITROGLYCERIN SL TABS 0.4 MG TAB SUBLINGUAL PRN (22:28)
[2018-08-03] MEDS ORDERED: FUROSEMIDE 10 MG/ML 4 ML VIAL IV SCH (22:30)
[2018-08-03 23:44] LABS: Glucose,Whole Blood 182 mg/dL (75-99)
[2018-08-04] MEDS ORDERED: LIDOCAINE URO-JET JELLY 2% 5 ML KIT URETHRAL ONE (00:31)
[2018-08-04] MEDS ORDERED: GABAPENTIN 400 MG CAP PO STA (01:09)
[2018-08-04] MEDS ORDERED: MELATONIN 5 MG TABLET PO STA (01:25)
[2018-08-04] MEDS: LORazepam 0.5 MG TAB PO PRN (01:29)
[2018-08-04 06:59] LABS: Glucose,Whole Blood 316 mg/dL (75-99)
[2018-08-04] MEDS: LEVOTHYROXINE 50 MCG TAB PO SCH (07:08)
[2018-08-04] MEDS: INSULIN ASPART (NovoLOG) 100 UNIT/ML VIAL SQ SCH ×4 (07:10→21:14)
[2018-08-04] MEDS: IPRATROPIUM-ALBUTEROL 3 ML NEB INHALATION SCH ×4 (07:24→19:20)
[2018-08-04] MEDS ORDERED: SYMBICORT 80-4.5 MCG INHALER INHALATION SCH (08:00)
[2018-08-04] MEDS ORDERED: predniSONE 10 MG TAB PO SCH (09:00)
[2018-08-04] MEDS ORDERED: FUROSEMIDE 20 MG TAB PO SCH (09:00)
--- NOTE | 2018-08-04 09:39 | P.PN ---
Subjective Progress Note Date: 08/04/18 Principal diagnosis: Acute respiratory distress, shortness of breath, acute on chronic hypoxic respiratory failure On 08/02/2018 patient seen in follow-up on medical surgical floor. He is awake and alert, oriented 3, he sitting up in bed, he states his breathing has not improved significantly, still quite bronchospastic, coughing, and congested. Vital signs remain stable, room air pulse ox is 92%, patient is afebrile. Blood culture showed no growth. Today's labs have been reviewed, showed sodium of 139, potassium is 4.6, chloride is 99, CO2 is 32, B1 is 29 creatinine was 1.26. Patient is being treated with a combination of antibiotics, nebulized bronchodilators, mucolytic's, and has received 2 doses of IV Lasix, and Solu- Medrol 60 mg every 6 hours. On 08/03/2016 patient seen in follow-up on medical surgical floor. He is awake and alert, he was able to get up and take a shower, shave today, still gets dyspneic with exertion, recovers well would rest, lung sounds are positive for only minimal wheezing, overall much less bronchospastic and congested since he came in, no fever no chills, today's lab work has been reviewed, BNP was done, electrolytes are within normal limits with the exception of CO2, which is chronically elevated. Renal profile stable, with BUN of 38, creatinine is 1.27. On 08/04/2018 patient was seen again in the intensive care unit, patient was discharged home yesterday, however 2 hours later he started experiencing acute shortness of breath, started hyperventilating, he states he was having trouble getting air in, she called EMS, in the when EMS arrived his pulse ox was only in the 80s, he was placed on a nonrebreather mask, was given breathing treatments, and was brought into the emergency department. Did experience some sharp chest discomfort that was associated with his shortness of breath, however he states it did not last very long. EKG in the emergency department showed sinus tachycardia with PACs, no acute ischemic changes noted. Chest x-ray without any focal infiltrates, and there was clearing of the mild atelectasis in the left lower lobe compared to previous exam. [place] lab work was reviewed, and the white blood cell, was 10.0, hemoglobin is 11.8, electrolytes and quite large profile were within normal limits, BUN is 42, creatinine is 1.49, troponins were negative 2, proBNP was within normal limits at 625. Patient was afebrile, was dynamically stable, he was hypoxemic, and was placed on BiPAP support overnight, with pressures of 12 and 6 and FiO2 of 36%, currently he is back on nasal ca nnula at 3 L. No running IVs, patient was started on IV steroids, empiric antibiotics, breathing treatments, and this morning he is breathing easier, although still wheezy and congested. Objective - Vital Signs Vital signs: Vital Signs Temp 98.1 F 08/04/18 08:00 Pulse 96 08/04/18 08:00 Resp 14 08/04/18 08:00 BP 143/77 08/04/18 08:00 Pulse Ox 95 08/04/18 08:00 Intake & Output 08/03/18 08/04/18 08/04/18 18:59 06:59 18:59 Intake Total 960 100 Output Total 3425 430 Balance -2465 -330 Weight 112.037 kg 115.2 kg Intake: Oral 960 100 Output: Urine 3425 430 Other: Voiding Method Indwelling Catheter - Exam GENERAL EXAM: Alert, pleasant, obese 83-year-old white male, currently on 3 L of oxygen, he has [id number] conversational dyspnea, HEAD: Normocephalic/atraumatic. EYES: Normal reaction of pupils, equal size. Conjunctiva pink, sclera white. NOSE: Clear with pink turbinates. THROAT: No erythema or exudates. NECK: No masses, no JVD, no thyroid enlargement, no adenopathy. CHEST: No chest wall deformity. Symmetrical expansion. LUNGS: Equal air entry with minimal wheezing and rhonchi CVS: Regular rate and rhythm, normal S1 and S2, no gallops, no murmurs, no rubs ABDOMEN: Soft, nontender. No hepatosplenomegaly, normal bowel sounds, no guarding or rigidity. EXTREMITIES: No clubbing, no edema, no cyanosis, 2+ pulses and upper and lower extremities. MUSCULOSKELETAL: Muscle strength and tone normal. SPINE: No scoliosis or deformity SKIN: No rashes CENTRAL NERVOUS SYSTEM: Alert and oriented -3. No focal deficits, tone is normal in all 4 extremities. PSYCHIATRIC: Alert and oriented -3. Appropriate affect. Intact judgment and insight. - Labs CBC & Chem 7: 08/03/18 17:40 08/03/18 17:40 Labs: Abnormal Lab Results - Last 24 Hours (Table) 08/03/18 08/03/18 08/03/18 Range/Units 17:40 17:40 23:41 RBC 3.70 L (4.30-5.90) m/uL Hgb 11.8 L (13.0-17.5) gm/dL Hct 35.8 L (39.0-53.0) % Neutrophils # 8.4 H (1.3-7.7) k/uL BUN 42 H (9-20) mg/dL Creatinine 1.49 H (0.66-1.25) mg/dL Glucose 128 H (74-99) mg/dL POC Glucose (mg/dL) 182 H (75-99) mg/dL Magnesium 2.4 H (1.6-2.3) mg/dL Creatine Kinase 173 H (55-170) U/L Total Protein 6.0 L (6.3-8.2) g/dL 08/04/18 Range/Units 06:57 RBC (4.30-5.90) m/uL Hgb (13.0-17.5) gm/dL Hct (39.0-53.0) % Neutrophils # (1.3-7.7) k/uL BUN (9-20) mg/dL Creatinine (0.66-1.25) mg/dL Glucose (74-99) mg/dL POC Glucose (mg/dL) 316 H (75-99) mg/dL Magnesium (1.6-2.3) mg/dL Creatine Kinase (55-170) U/L Total Protein (6.3-8.2) g/dL Assessment and Plan Plan: Assessment: #1. Acute exacerbation of chronic obstructive pulmonary disease complicated by purulent tracheobronchitis without katharina pneumonia. Recently hospitalized for COPD, discharged home yesterday, and readmitted for acute episode of respiratory distress, repeat chest x-rays in the emergency department were negative for any focal pneumonia or congestive heart failure #2. Previous history of heavy tobacco use #3. History of GERD/reflux #4. Hypertension, hyperlipidemia #5. Previous history of pneumonia #6. History of benign prostatic hypertrophy #7. Rheumatoid arthritis #8. Chronic back pain syndrome with pain pump insertion #9. History of diverticulosis #10. Migraine headache #11. Restless leg syndrome Plan: Continue with empiric antibiotics, will add Pulmicort and Perforomist, continue DuoNeb, we will add IV steroids, we'll continue to follow, chest x-ray has been reviewed and is free of any acute cardiopulmonary findings. I performed a history & physical examination of the patient and discussed their management with my nurse practitioner, Marta Herrera. I reviewed the nurse practitioner's note and agree with the documented findings and plan of care. Lung sounds are positive for diffuse wheezes and rhonchi The findings and the impression was discussed with the patient. I attest to the documentation by the nurse practitioner. Time with Patient: Less than 30
[2018-08-04] MEDS: MELOXICAM 7.5 MG TAB PO SCH (10:47)
[2018-08-04] MEDS: AZITHROMYCIN 500 MG TAB PO SCH (10:48)
[2018-08-04] MEDS: DILTIAZEM CD 120 MG CAP.ER.24H PO SCH (10:49)
[2018-08-04] MEDS: guaiFENesin 600 MG TABLET.ER PO SCH ×2 (10:50→21:21)
[2018-08-04] MEDS: GABAPENTIN 400 MG CAP PO SCH ×3 (10:50→21:15)
[2018-08-04] MEDS: MULTIVITAMINS, THERA 1 EACH TAB PO SCH (10:50)
[2018-08-04] MEDS: ISOSORBIDE MONONITRATE ER 60 MG TAB.ER.24H PO SCH (10:50)
[2018-08-04 11:02] LABS: Glucose,Whole Blood 189 mg/dL (75-99)
[2018-08-04] MEDS: methylPREDNISolone SOD SUCCI 125 MG/2 ML VIAL IV SCH ×2 (12:29→18:39)
--- NOTE | 2018-08-04 16:20 | HP ---
HISTORY AND PHYSICAL DATE OF ADMISSION: 08/03/2108 DATE OF SERVICE: 08/04/2018 PRESENTING COMPLAINT: Short of breath. HISTORY OF PRESENTING COMPLAINT: This is a very pleasant 83-year-old patient of Dr. Elkins out of [place] and Dr. Diaz, who follows as his air pollution specialist. Chronic stable medical conditions include GERD, hypertension, BPH, rheumatoid arthritis, home oxygen at 2 liters, colonic diverticulosis, restless legs syndrome, mild cognitive impairment, intrathecal pain pump, for which he follows with Dr. Hilliard. The patient was just discharged yesterday late afternoon following admission for COPD exacerbation and bronchitis. The patient was doing really well. We had a good talk, and patient after being home for a short time suddenly became more and more short of breath, congested, crackly, and presented to the ER. Even though patient's BNP was only 649, the patient was given some Lasix and breathing treatments and admitted, initially with a BiPAP. When I saw this patient today, he was feeling much better. [employer] Manager Dr. Jones was consulted for the same. Patient has slight congestion in the chest, he states. He did tolerate some meal. There was no fever. No chills. REVIEW OF SYSTEMS: CONSTITUTIONAL: Tired. HEENT: Decreased hearing. RESPIRATORY: As above. CARDIOVASCULAR: As above. GASTROINTESTINAL: Heartburn. GENITOURINARY: None. MUSCULOSKELETAL: Chronic pain in multiple joints. DERMATOLOGICAL: None. HEMATOLOGICAL: None. LYMPHATICS: None. PSYCHIATRY: Mild anxiety. NEUROLOGICAL: None. PAST MEDICAL HISTORY: 1. COPD. 2. GERD. 3. Hyperlipidemia. 4. Hypertension. 5. Prostate disorder. 6. Rheumatoid arthritis. 7. Home oxygen at 2 liters. 8. Low back pain with a pain pump, being followed by Dr. Hilliard. 9. Cataract in the right eye. 10.Right eye injury with vision loss. 11.Shingles. 12.Chronic sinus disease. 13.Migraines. 14.Diverticulosis. 15.Restless legs syndrome. 16.BPH. 17.Right carpal tunnel disorder. PAST SURGICAL HISTORY: 1. Right lens implant. 2. Right foot right toe surgery. 3. Left foot surgery. 4. Repair of left index finger, partial amputation. 5. Bilateral rotator cuff repair. 6. Pain pump. PSYCH HISTORY: Anxiety. SOCIAL HISTORY: The patient has a daughter who helps him out. Uses a cane and a walker. Home oxygen 2 L. The patient just stopped smoking in the past. No alcohol. FAMILY HISTORY: Cirrhosis. HOME MEDICATIONS: 1. Flomax 0.4 mg p.o. at bedtime. 2. Senokot 17.2 mg at bedtime. 3. Omeprazole 40 mg at bedtime. 4. Nitrostat 0.4 subcutaneously q.5 p.r.n. 5. Melatonin 5 mg at bedtime. 6. Ativan 0.5 p.o. t.i.d. p.r.n. 7. [place] 10 one tablet p.o. b.i.d. p.r.n. 8. Proscar 5 mg at bedtime. 9. Requip 0.5 mg p.o. t.i.d. 10.Prednisone 10 mg p.o. daily. 11.Mucinex 1200 mg p.o. b.i.d. 12.Potassium 10 mEq a day. 13.Multivitamin gummies 1 tablet p.o. daily. 14.Morphine pain pump. 15.Mobic 15 mg p.o. daily. 16.Synthroid 175 mcg a day. 17.Imdur ER 60 mg a day. 18.DuoNeb q.i.d. 19.Gabapentin 800 mg t.i.d. 20.Lasix 20 mg p.o. daily. 21.Breo Ellipta 1 puff daily. 22.Doxepin 50 mg at bedtime. 23.Aricept 10 mg at bedtime. 24.Cardizem XT 120 mg p.o. daily. 25.Zithromax 500 mg p.o. daily for 2 days. 26.Lipitor 20 mg at bedtime. 27.Prednisone taper. PHYSICAL EXAMINATION: Temperature 98.4, pulse 109, respiration 22, blood pressure 138/68, pulse ox 93% on 2 L. GENERAL APPEARANCE: Sitting in bed. Somewhat tired-appearing. EYES: Pupils equal. Conjunctivae normal. HEENT: External appearance of nose and ears normal. Oral cavity normal. NECK: JVD not raised. Mass not palpable. RESPIRATORY: Effort increased. LUNGS: Decreased breath sounds. Some expiratory crackles and prolonged expiration. CARDIOVASCULAR: First and second sounds normal. No edema. ABDOMEN: Soft, non-tender. Liver and spleen not palpable. Pain pump in place. LYMPHATIC: No lymph node palpable in neck or axillae. PSYCHIATRY: Alert and oriented x3. Mood and affect slightly anxious. NEUROLOGICAL: Pupils equal. Cranial nerves grossly intact. Power and sensation grossly intact. INVESTIGATIONS: White count 10, hemoglobin 11.8 potassium 4.7. BUN 42, creatinine 1.49. Chest x-ray a bit underexposed, personally reviewed by me. EKG tracing shows sinus tachycardia. ASSESSMENT: 1. Acute chronic obstructive pulmonary disease exacerbation in an ex-smoker. 2. Gastroesophageal reflux disease. 3. Essential hypertension. 4. Hyperlipidemia. 5. Benign prostatic hypertrophy. 6. Chronic rheumatoid arthritis. 7. Hypothyroid. 8. Chronic hypoxic respiratory failure from underlying chronic obstructive pulmonary disease. 9. Acute hypoxic respiratory failure, present on admission. 10.Chronic colonic diverticulosis. 11.Mild cognitive impairment from underlying late-onset Alzheimer's dementia. 12.Restless legs syndrome. 13.Chronic gait dysfunction. Uses a cane and a walker. 14.Chronic pain syndrome with intrathecal pain pump, being followed by Dr. Hilliard. PLAN: Dr. Jones was consulted. The patient did get some Lasix initially. BNP is only 645. X- ray is not very impressive. Home medications are resumed. Patient is put on IV Solu- Medrol, Pulmicort. Other home medications are resumed. Care was discussed with the patient. Questions were answered. MMODL / IJN: [id number] /
[2018-08-04 16:48] LABS: Glucose,Whole Blood 199 mg/dL (75-99)
[2018-08-04] MEDS: FORMOTEROL FUMARATE 20 MCG/2 ML NEBU INHALATION SCH (19:20)
[2018-08-04] MEDS: BUDESONIDE 0.5 MG/2 ML NEBU INHALATION SCH (19:23)
[2018-08-04 21:08] LABS: Glucose,Whole Blood 225 mg/dL (75-99)
[2018-08-04] MEDS: DONEPEZIL 10 MG TAB PO SCH (21:10)
[2018-08-04] MEDS: ATORVASTATIN 20 MG TAB PO SCH (21:10)
[2018-08-04] MEDS: DOXEPIN 25 MG CAP PO SCH (21:11)
[2018-08-04] MEDS: FINASTERIDE 5 MG TAB PO SCH (21:12)
[2018-08-04] MEDS: SENNOSIDES 8.6 MG TAB PO SCH (21:13)
[2018-08-04] MEDS: PANTOPRAZOLE 40 MG TABLET PO SCH (21:14)
[2018-08-04] MEDS: MELATONIN 5 MG TABLET PO SCH (21:14)
[2018-08-04] MEDS: TAMSULOSIN 0.4 MG CAP.ER.24H PO SCH (21:15)
[2018-08-05] MEDS: methylPREDNISolone SOD SUCCI 125 MG/2 ML VIAL IV SCH ×4 (00:07→17:13)
[2018-08-05] MEDS: LORazepam 0.5 MG TAB PO PRN ×2 (00:17→13:26)
[2018-08-05] MEDS: LEVOTHYROXINE 50 MCG TAB PO SCH (06:53)
[2018-08-05 06:59] LABS: Glucose,Whole Blood 203 mg/dL (75-99)
[2018-08-05] MEDS: INSULIN ASPART (NovoLOG) 100 UNIT/ML VIAL SQ SCH ×4 (07:36→22:12)
[2018-08-05] MEDS: FORMOTEROL FUMARATE 20 MCG/2 ML NEBU INHALATION SCH ×2 (08:05→19:55)
[2018-08-05] MEDS: IPRATROPIUM-ALBUTEROL 3 ML NEB INHALATION SCH ×4 (08:05→19:53)
[2018-08-05] MEDS: BUDESONIDE 0.5 MG/2 ML NEBU INHALATION SCH ×2 (08:06→19:53)
[2018-08-05] MEDS: MULTIVITAMINS, THERA 1 EACH TAB PO SCH (09:07)
[2018-08-05] MEDS: guaiFENesin 600 MG TABLET.ER PO SCH ×2 (09:07→21:22)
[2018-08-05] MEDS: ISOSORBIDE MONONITRATE ER 60 MG TAB.ER.24H PO SCH (09:07)
[2018-08-05] MEDS: AZITHROMYCIN 500 MG TAB PO SCH (09:07)
[2018-08-05] MEDS: GABAPENTIN 400 MG CAP PO SCH ×3 (09:07→21:23)
[2018-08-05] MEDS: MELOXICAM 7.5 MG TAB PO SCH (09:08)
[2018-08-05] MEDS: DILTIAZEM CD 120 MG CAP.ER.24H PO SCH (09:08)
--- NOTE | 2018-08-05 10:31 | P.PN ---
Subjective Progress Note Date: 08/05/18 Principal diagnosis: Acute exacerbation of chronic obstructive pulmonary disease. The patient is seen today 08/05/2018 in follow-up in the intensive care unit. He is awake and alert in no acute distress. He denies any worsening shortness of breath, cough or congestion. He is still dyspneic on minimal exertion still somewhat bronchospastic and wheezing. He is maintaining O2 saturations in the 90s on 3 L/m per nasal cannula. Afebrile. Hemodynamically stable. He has been maintained on DuoNeb inhalations, Pulmicort and Perforomist inhalations, IV Solu-Medrol. He did not require the BiPAP last evening. He is to be transferred to general medical floor no telemetry. Objective - Vital Signs Vital signs: Vital Signs Temp 98.9 F 08/05/18 08:00 Pulse 108 H 08/05/18 08:30 Resp 16 08/05/18 08:00 BP 134/84 08/05/18 08:00 Pulse Ox 92 L 08/05/18 08:00 Intake & Output 08/04/18 08/05/18 08/05/18 18:59 06:59 18:59 Intake Total 500 960 Output Total 1060 1400 1000 Balance -560 -440 -1000 Weight 115.2 kg 115 kg Intake: Oral 500 960 Output: Urine 1060 1400 1000 Other: Voiding Method Indwelling Catheter Indwelling Catheter - Exam GENERAL EXAM: Alert, pleasant, obese 83-year-old white male, currently on 3 L of oxygen, he has mild dyspnea on exertion, HEAD: Normocephalic/atraumatic. EYES: Normal reaction of pupils, equal size. Conjunctiva pink, sclera white. NOSE: Clear with pink turbinates. THROAT: No erythema or exudates. NECK: No masses, no JVD, no thyroid enlargement, no adenopathy. CHEST: No chest wall deformity. Symmetrical expansion. LUNGS: Equal air entry with minimal wheezing and rhonchi CVS: Regular rate and rhythm, normal S1 and S2, no gallops, no murmurs, no rubs ABDOMEN: Soft, nontender. No hepatosplenomegaly, normal bowel sounds, no guarding or rigidity. EXTREMITIES: No clubbing, no edema, no cyanosis, 2+ pulses and upper and lower extremities. MUSCULOSKELETAL: Muscle strength and tone normal. SPINE: No scoliosis or deformity SKIN: No rashes CENTRAL NERVOUS SYSTEM: Alert and oriented -3. No focal deficits, tone is normal in all 4 extremities. PSYCHIATRIC: Alert and oriented -3. Appropriate affect. Intact judgment and insight. - Labs CBC & Chem 7: 08/03/18 17:40 08/03/18 17:40 Labs: Abnormal Lab Results - Last 24 Hours (Table) 08/04/18 08/04/18 08/04/18 Range/Units 10:59 16:47 20:56 POC Glucose (mg/dL) 189 H 199 H 225 H (75-99) mg/dL 08/05/18 Range/Units 06:57 POC Glucose (mg/dL) 203 H (75-99) mg/dL Assessment and Plan Assessment: Assessment: #1. Acute exacerbation of chronic obstructive pulmonary disease complicated by purulent tracheobronchitis without katharina pneumonia. Recently hospitalized for COPD, discharged home yesterday, and readmitted for acute episode of respiratory distress, repeat chest x-rays in the emergency department were negative for any focal pneumonia or congestive heart failure #2. Previous history of heavy tobacco use #3. History of GERD/reflux #4. Hypertension, hyperlipidemia #5. Previous history of pneumonia #6. History of benign prostatic hypertrophy #7. Rheumatoid arthritis #8. Chronic back pain syndrome with pain pump insertion #9. History of diverticulosis #10. Migraine headache #11. Restless leg syndrome Plan: The patient was seen and evaluated by Dr. Jones. He is improved today as compared to yesterday. Not quite back to his baseline. Continue with the current treatment plan. Increase his activity as tolerated. Transfer out of the intensive care unit to a general medical floor. We'll continue to follow. I, the cosigning physician, performed a history & physical examination of the patient. Lungs sounds bilateral end expiratory wheeze, diminished. Maintaining good O2 saturations in the 90s on 3 L/m per nasal cannula. I discussed the assessment and plan of care with my nurse practitioner, Hailey Oh. I attest to the above note as dictated by her.
[2018-08-05 11:44] LABS: Glucose,Whole Blood 250 mg/dL (75-99)
[2018-08-05 16:30] LABS: Glucose,Whole Blood 249 mg/dL (75-99)
--- NOTE | 2018-08-05 20:07 | PN ---
PROGRESS NOTE DATE OF SERVICE: August 05, 2018. PRESENTING COMPLAINT: Short of breath. INTERVAL HISTORY: This patient was admitted with acute COPD exacerbation. Feels rather tired. Tolerating a diet. Had some swelling in lower extremity, which has gone down. Jalloh catheter still in place. Somewhat better. Though tired. REVIEW OF SYSTEMS: Done for constitutional, cardiovascular, GI, pulmonary; relevant findings as above. CURRENT MEDICATIONS: Reviewed that include DuoNeb and IV Solu-Medrol. PHYSICAL EXAMINATION: VITAL SIGNS: Temperature 98.6, pulse 98, respiratory 18, blood pressure 127/78, pulse ox 94 percent on 2 L. GENERAL APPEARANCE: Sitting at the edge of the bed, awake. Tired. EYES: Pupils equal. Conjunctivae normal. NECK: JVD unable to assess. Mass not palpable. RESPIRATORY: Effort increased. LUNGS: Decreased breath sounds. Prolonged expiration. Some wheezing. CARDIOVASCULAR: First and second sounds normal. Some minimal edema. ABDOMEN: Soft, nontender. Liver and spleen not palpable. Pain pump in place. PSYCHIATRY: Alert and oriented x3. Mood and affect slightly anxious. INVESTIGATIONS: Accu-Cheks are noted. ASSESSMENT: 1. Acute chronic obstructive pulmonary disease exacerbation in an ex-smoker improving. 2. Gastroesophageal reflux disease. 3. Essential hypertension. 4. Hyperlipidemia. 5. Benign prostatic hypertrophy. 6. Chronic rheumatoid arthritis. 7. Hypothyroid. 8. Chronic hypoxic respiratory failure from underlying chronic obstructive pulmonary disease. 9. Acute hypoxic respiratory failure present on admission. 10.Chronic colonic diverticulosis. 11.Mild cognitive impairment from underlying late onset Alzheimer's dementia. 12.Restless legs syndrome. 13.Chronic gait dysfunction uses a cane and a walker. 14.Chronic pain syndrome, cause undetermined with intrathecal pain pump being followed by Dr. Hilliard. PLAN: The patient started to do better. Continue current medication and treatment plan. Scale back on steroids. Care was discussed with the patient. Encouraged the patient to be more out of bed. The patient did sit up in the chair earlier today. MMODL / IJN: [id number] /
[2018-08-05 21:02] LABS: Glucose,Whole Blood 283 mg/dL (75-99)
[2018-08-05] MEDS: ATORVASTATIN 20 MG TAB PO SCH (21:20)
[2018-08-05] MEDS: DONEPEZIL 10 MG TAB PO SCH (21:21)
[2018-08-05] MEDS: DOXEPIN 25 MG CAP PO SCH (21:21)
[2018-08-05] MEDS: FINASTERIDE 5 MG TAB PO SCH (21:21)
[2018-08-05] MEDS: TAMSULOSIN 0.4 MG CAP.ER.24H PO SCH (21:22)
[2018-08-05] MEDS: SENNOSIDES 8.6 MG TAB PO SCH (21:22)
[2018-08-05] MEDS: PANTOPRAZOLE 40 MG TABLET PO SCH (21:22)
[2018-08-05] MEDS: MELATONIN 5 MG TABLET PO SCH (21:22)
[2018-08-05] MEDS: methylPREDNISolone SOD SUCCI 40 MG/ML 1 ML VIAL IV SCH (23:28)
[2018-08-06 05:49] LABS: Calcium 8.5 mg/dL (8.4-10.2); Potassium 4.4 mmol/L (3.5-5.1)
[2018-08-06] MEDS: LEVOTHYROXINE 50 MCG TAB PO SCH (06:26)
[2018-08-06 06:58] LABS: Glucose,Whole Blood 222 mg/dL (75-99)
[2018-08-06] MEDS: INSULIN ASPART (NovoLOG) 100 UNIT/ML VIAL SQ SCH ×4 (07:14→21:07)
[2018-08-06] MEDS: FORMOTEROL FUMARATE 20 MCG/2 ML NEBU INHALATION SCH ×2 (07:36→18:59)
[2018-08-06] MEDS: IPRATROPIUM-ALBUTEROL 3 ML NEB INHALATION SCH ×4 (07:36→18:59)
[2018-08-06] MEDS: BUDESONIDE 0.5 MG/2 ML NEBU INHALATION SCH ×2 (07:39→18:58)
[2018-08-06] MEDS: MELOXICAM 7.5 MG TAB PO SCH (09:03)
[2018-08-06] MEDS: methylPREDNISolone SOD SUCCI 40 MG/ML 1 ML VIAL IV SCH ×3 (09:03→23:39)
[2018-08-06] MEDS: GABAPENTIN 400 MG CAP PO SCH ×3 (09:06→21:09)
[2018-08-06] MEDS: ISOSORBIDE MONONITRATE ER 60 MG TAB.ER.24H PO SCH (09:06)
[2018-08-06] MEDS: AZITHROMYCIN 500 MG TAB PO SCH (09:06)
[2018-08-06] MEDS: guaiFENesin 600 MG TABLET.ER PO SCH ×2 (09:06→21:06)
[2018-08-06] MEDS: MULTIVITAMINS, THERA 1 EACH TAB PO SCH (09:06)
[2018-08-06] MEDS: DILTIAZEM CD 120 MG CAP.ER.24H PO SCH (09:07)
[2018-08-06] MEDS: LORazepam 0.5 MG TAB PO PRN ×2 (09:11→20:03)
--- NOTE | 2018-08-06 09:28 | P.PN ---
Subjective Progress Note Date: 08/06/18 Principal diagnosis: Acute respiratory distress, shortness of breath, acute on chronic hypoxic respiratory failure On 08/02/2018 patient seen in follow-up on medical surgical floor. He is awake and alert, oriented 3, he sitting up in bed, he states his breathing has not improved significantly, still quite bronchospastic, coughing, and congested. Vital signs remain stable, room air pulse ox is 92%, patient is afebrile. Blood culture showed no growth. Today's labs have been reviewed, showed sodium of 139, potassium is 4.6, chloride is 99, CO2 is 32, B1 is 29 creatinine was 1.26. Patient is being treated with a combination of antibiotics, nebulized bronchodilators, mucolytic's, and has received 2 doses of IV Lasix, and Solu- Medrol 60 mg every 6 hours. On 08/03/2016 patient seen in follow-up on medical surgical floor. He is awake and alert, he was able to get up and take a shower, shave today, still gets dyspneic with exertion, recovers well would rest, lung sounds are positive for only minimal wheezing, overall much less bronchospastic and congested since he came in, no fever no chills, today's lab work has been reviewed, BNP was done, electrolytes are within normal limits with the exception of CO2, which is chronically elevated. Renal profile stable, with BUN of 38, creatinine is 1.27. On 08/04/2018 patient was seen again in the intensive care unit, patient was discharged home yesterday, however 2 hours later he started experiencing acute shortness of breath, started hyperventilating, he states he was having trouble getting air in, she called EMS, in the when EMS arrived his pulse ox was only in the 80s, he was placed on a nonrebreather mask, was given breathing treatments, and was brought into the emergency department. Did experience some sharp chest discomfort that was associated with his shortness of breath, however he states it did not last very long. EKG in the emergency department showed sinus tachycardia with PACs, no acute ischemic changes noted. Chest x-ray without any focal infiltrates, and there was clearing of the mild atelectasis in the left lower lobe compared to previous exam. [place] lab work was reviewed, and the white blood cell, was 10.0, hemoglobin is 11.8, electrolytes and quite large profile were within normal limits, BUN is 42, creatinine is 1.49, troponins were negative 2, proBNP was within normal limits at 625. Patient was afebrile, was dynamically stable, he was hypoxemic, and was placed on BiPAP support overnight, with pressures of 12 and 6 and FiO2 of 36%, currently he is back on nasal ca nnula at 3 L. No running IVs, patient was started on IV steroids, empiric antibiotics, breathing treatments, and this morning he is breathing easier, although still wheezy and congested. On 07/29/2017 patient seen in follow-up in the intensive care unit, he is awaiting a bed for a general medical floor, he has been on OUTPATIENT, he remains on 3 L of oxygen, Pulse ox is 96%, he is afebrile, hemodynamically stable, did not require BiPAP support last night, he states he still quite dyspneic with any exertion, requiring periods of rest. He feels very weak. Vital signs are stable, no fever or chills. Continues on empiric antibiotics, Pulmicort and Perforomist, IV steroids. Objective - Vital Signs Vital signs: Vital Signs Temp 98.9 F 08/06/18 08:00 Pulse 97 08/06/18 08:08 Resp 26 H 08/06/18 08:00 BP 128/94 08/06/18 08:00 Pulse Ox 96 08/06/18 08:00 Intake & Output 08/05/18 08/06/18 08/06/18 18:59 06:59 18:59 Intake Total 600 1000 Output Total 1000 600 Balance -400 400 Weight 117.2 kg Intake: Oral 600 1000 Output: Urine 1000 600 Other: Voiding Method Indwelling Catheter Indwelling Catheter # Voids 2 1 # Bowel Movements 1 - Exam GENERAL EXAM: Alert, pleasant, obese 83-year-old white male, currently on 3 L of oxygen, he has [id number] conversational dyspnea, HEAD: Normocephalic/atraumatic. EYES: Normal reaction of pupils, equal size. Conjunctiva pink, sclera white. NOSE: Clear with pink turbinates. THROAT: No erythema or exudates. NECK: No masses, no JVD, no thyroid enlargement, no adenopathy. CHEST: No chest wall deformity. Symmetrical expansion. LUNGS: Equal air entry with diffuse wheezing CVS: Regular rate and rhythm, normal S1 and S2, no gallops, no murmurs, no rubs ABDOMEN: Soft, nontender. No hepatosplenomegaly, normal bowel sounds, no guarding or rigidity. EXTREMITIES: No clubbing, no edema, no cyanosis, 2+ pulses and upper and lower extremities. MUSCULOSKELETAL: Muscle strength and tone normal. SPINE: No scoliosis or deformity SKIN: No rashes CENTRAL NERVOUS SYSTEM: Alert and oriented -3. No focal deficits, tone is normal in all 4 extremities. PSYCHIATRIC: Alert and oriented -3. Appropriate affect. Intact judgment and insight. - Labs CBC & Chem 7: 08/03/18 17:40 08/06/18 04:38 Labs: Abnormal Lab Results - Last 24 Hours (Table) 08/05/18 08/05/18 08/05/18 Range/Units 11:43 16:27 21:00 BUN (9-20) mg/dL Glucose (74-99) mg/dL POC Glucose (mg/dL) 250 H 249 H 283 H (75-99) mg/dL 08/06/18 08/06/18 Range/Units 04:38 06:57 BUN 48 H (9-20) mg/dL Glucose 196 H (74-99) mg/dL POC Glucose (mg/dL) 222 H (75-99) mg/dL Assessment and Plan Plan: Assessment: #1. Acute exacerbation of chronic obstructive pulmonary disease complicated by purulent tracheobronchitis without katharina pneumonia. Recently hospitalized for COPD, discharged home yesterday, and readmitted for acute episode of respiratory distress, repeat chest x-rays in the emergency department were negative for any focal pneumonia or congestive heart failure #2. Previous history of heavy tobacco use #3. History of GERD/reflux #4. Hypertension, hyperlipidemia #5. Previous history of pneumonia #6. History of benign prostatic hypertrophy #7. Rheumatoid arthritis #8. Chronic back pain syndrome with pain pump insertion #9. History of diverticulosis #10. Migraine headache #11. Restless leg syndrome Plan: Continue current medical treatment, still remains dyspneic, and generally weak, increase activity as tolerated, physical therapy to come and evaluate the patient. continue with antibiotics IV steroids and nebulized bronchodilators, stable to go out of ICU to general medical floor. I performed a history & physical examination of the patient and discussed their management with my nurse practitioner, Marta Herrera. I reviewed the nurse practitioner's note and agree with the documented findings and plan of care. Lung sounds are positive for diffuse wheezes and rhonchi The findings and the impression was discussed with the patient. I attest to the documentation by the nurse practitioner. Time with Patient: Less than 30
[2018-08-06 11:57] LABS: Glucose,Whole Blood 163 mg/dL (75-99)
[2018-08-06 17:53] LABS: Glucose,Whole Blood 225 mg/dL (75-99)
[2018-08-06 20:54] LABS: Glucose,Whole Blood 211 mg/dL (75-99)
[2018-08-06] MEDS: DONEPEZIL 10 MG TAB PO SCH (21:05)
[2018-08-06] MEDS: ATORVASTATIN 20 MG TAB PO SCH (21:05)
[2018-08-06] MEDS: DOXEPIN 25 MG CAP PO SCH (21:06)
[2018-08-06] MEDS: FINASTERIDE 5 MG TAB PO SCH (21:06)
[2018-08-06] MEDS: MELATONIN 5 MG TABLET PO SCH (21:07)
[2018-08-06] MEDS: PANTOPRAZOLE 40 MG TABLET PO SCH (21:07)
[2018-08-06] MEDS: TAMSULOSIN 0.4 MG CAP.ER.24H PO SCH (21:08)
[2018-08-06] MEDS: SENNOSIDES 8.6 MG TAB PO SCH (21:08)
--- NOTE | 2018-08-06 22:49 | PN ---
PROGRESS NOTE DATE OF SERVICE: August 06, 2018. PRESENTING COMPLAINT: Short of breath, cough. INTERVAL HISTORY: Patient admitted with acute COPD exacerbation tracheobronchitis, shade better though gets easily tired. Still bringing up some sputum. Tolerating a diet. No other new issues. No fever. No chills. REVIEW OF SYSTEMS: Done for constitutional, cardiovascular, GI, pulmonary; relevant findings as above. Still has some wheezing. PHYSICAL EXAMINATION: VITAL SIGNS: Afebrile, pulse 92, respiration 22, blood pressure 130/80, pulse ox 96% on 3 L. GENERAL APPEARANCE: Sitting up, a bit tired. EYES: Pupils equal. Conjunctivae normal. NECK: JVD unable to assess. Mass not palpable. RESPIRATORY: Effort increased. LUNGS: Decreased breath sounds, prolonged expiration and wheezing. Occasional expiratory crackles. CARDIOVASCULAR: First and second sounds normal. Minimal edema. ABDOMEN: Soft, nontender. Liver and spleen not palpable. Pain pump in place. PSYCHIATRY: Alert and oriented times three. Mood and affect normal. INVESTIGATIONS: Accu-Cheks are noted. Creatinine 1.12. ASSESSMENT: 1. Acute chronic obstructive pulmonary disease exacerbation in an ex-smoker, slow to improve. 2. Gastroesophageal reflux disease. 3. Essential hypertension. 4. Hyperlipidemia. 5. Benign prostatic hypertrophy. 6. Chronic rheumatoid arthritis. 7. Hypothyroid. 8. Chronic hypoxic respiratory failure from underlying chronic obstructive pulmonary disease. 9. Acute hypoxic respiratory failure, present on admission. 10.Chronic colonic diverticulosis. 11.Mild cognitive impairment from underlying late onset Alzheimer's dementia. 12.Restless legs syndrome. 13.Chronic gait dysfunction uses a cane and a walker. 14.Chronic pain syndrome, cause undetermined with intrathecal pain pump being followed by Dr. Hilliard. 15.Acute tracheobronchitis. PLAN: Care was discussed with the patient. Still patient is having some sputum hence sent off sputum for Gram stain and culture. We will also try a flutter valve. The patient did walk a bit around the room. Did ask him to walk around a bit tomorrow. Expect the patient in the hospital for another maybe 1 or 2 days. MMODL / IJN: [id number] /
[2018-08-07] MEDS: IPRATROPIUM-ALBUTEROL 3 ML NEB INHALATION PRN (03:29)
[2018-08-07 05:00] LABS: Calcium 8.4 mg/dL (8.4-10.2); Magnesium 2.6 mg/dL (1.6-2.3)
[2018-08-07] MEDS: LEVOTHYROXINE 50 MCG TAB PO SCH (06:57)
[2018-08-07] MEDS: INSULIN ASPART (NovoLOG) 100 UNIT/ML VIAL SQ SCH ×4 (07:05→21:01)
[2018-08-07 07:11] LABS: Glucose,Whole Blood 200 mg/dL (75-99)
[2018-08-07] MEDS: BUDESONIDE 0.5 MG/2 ML NEBU INHALATION SCH ×2 (07:35→19:39)
[2018-08-07] MEDS: FORMOTEROL FUMARATE 20 MCG/2 ML NEBU INHALATION SCH ×2 (07:35→19:42)
[2018-08-07] MEDS: IPRATROPIUM-ALBUTEROL 3 ML NEB INHALATION SCH ×4 (07:35→19:39)
[2018-08-07] MEDS: MULTIVITAMINS, THERA 1 EACH TAB PO SCH (08:28)
[2018-08-07] MEDS: guaiFENesin 600 MG TABLET.ER PO SCH ×2 (08:28→20:57)
[2018-08-07] MEDS: methylPREDNISolone SOD SUCCI 40 MG/ML 1 ML VIAL IV SCH ×3 (08:28→22:54)
[2018-08-07] MEDS: ISOSORBIDE MONONITRATE ER 60 MG TAB.ER.24H PO SCH (08:28)
[2018-08-07] MEDS: GABAPENTIN 400 MG CAP PO SCH ×3 (08:28→22:54)
[2018-08-07] MEDS: AZITHROMYCIN 500 MG TAB PO SCH (08:28)
[2018-08-07] MEDS: DILTIAZEM CD 120 MG CAP.ER.24H PO SCH (08:28)
[2018-08-07] MEDS: MELOXICAM 7.5 MG TAB PO SCH (08:29)
[2018-08-07] MEDS: LORazepam 0.5 MG TAB PO PRN (10:39)
[2018-08-07 11:59] LABS: Glucose,Whole Blood 258 mg/dL (75-99)
--- NOTE | 2018-08-07 15:46 | P.PN ---
Subjective Progress Note Date: 08/07/18 On today's evaluation of 08/07/2018 I'm seeing this patient for a follow-up. He is in for an acute COPD exacerbation. This is a readmission after a hospitalization for the same. The patient was unable to stay at home for more than a few hours and he end up coming back for the same problem which included increased shortness of breath, dyspnea, cough, bronchospasm, and wheeze. He is still producing copious amount of rest or secretions and based on previous cultures, the patient had Pseudomonas and other gram-negative bacteria. For this reason, I'm recommending antibiotics which. I was able also to collect a sputum sample for emesis. Currently is still shortness of breath. He gets short of breath with amount of activity. His cough is congested. As mentioned he is producing significant amount of sputum. No fever. No chills. No hemoptysis. No pleurisy. No altered mentation. He is on oxygen at 3 L per minute nasal cannula for now. He did not require BiPAP during this current hospitalization. His vitals are stable. No altered mentation. He is on a combination of Perforomist and Pulmicort neb last treatment twice a day and he is also on IV Solu-Medrol at a dose of 40 mg every 8 hours. His blood sugars are slightly elevated and this being controlled by sliding scale coverage. No major swelling lower extremities. No angina. No other complaints otherwise for now. Objective - Vital Signs Vital signs: Vital Signs Temp 98.3 F 08/07/18 07:00 Pulse 88 08/07/18 15:30 Resp 20 08/07/18 07:00 BP 133/81 08/07/18 07:00 Pulse Ox 94 L 08/07/18 07:00 Intake & Output 08/06/18 08/07/18 08/07/18 18:59 06:59 18:59 Intake Total 1200 960 290 Balance 1200 960 290 Weight 119.5 kg Intake: Intake, IV Titration 50 Amount cefTAZidime 1 gm In 50 Sodium Chloride 0.9% 50 ml @ 100 mls/hr IVPB Q8HR [facility] Rx#:[id number] Oral 1200 960 240 Other: Voiding Method Toilet Toilet Toilet # Voids 1 2 1 - Exam GENERAL EXAM: Alert, pleasant, obese 83-year-old white male, currently on 3 L of oxygen, he has [id number] conversational dyspnea, HEAD: Normocephalic/atraumatic. EYES: Normal reaction of pupils, equal size. Conjunctiva pink, sclera white. NOSE: Clear with pink turbinates. THROAT: No erythema or exudates. NECK: No masses, no JVD, no thyroid enlargement, no adenopathy. CHEST: No chest wall deformity. Symmetrical expansion. LUNGS: Equal air entry with diffuse wheezing CVS: Regular rate and rhythm, normal S1 and S2, no gallops, no murmurs, no rubs ABDOMEN: Soft, nontender. No hepatosplenomegaly, normal bowel sounds, no guarding or rigidity. EXTREMITIES: No clubbing, no edema, no cyanosis, 2+ pulses and upper and lower extremities. MUSCULOSKELETAL: Muscle strength and tone normal. SPINE: No scoliosis or deformity SKIN: No rashes CENTRAL NERVOUS SYSTEM: Alert and oriented -3. No focal deficits, tone is normal in all 4 extremities. PSYCHIATRIC: Alert and oriented -3. Appropriate affect. Intact judgment and insight. - Labs CBC & Chem 7: 08/03/18 17:40 08/07/18 04:24 Labs: Abnormal Lab Results - Last 24 Hours (Table) 08/06/18 08/06/18 08/07/18 Range/Units 17:51 20:52 04:24 Carbon Dioxide 32 H (22-30) mmol/L BUN 45 H (9-20) mg/dL Glucose 233 H (74-99) mg/dL POC Glucose (mg/dL) 225 H 211 H (75-99) mg/dL Magnesium 2.6 H (1.6-2.3) mg/dL 08/07/18 08/07/18 Range/Units 07:00 11:57 Carbon Dioxide (22-30) mmol/L BUN (9-20) mg/dL Glucose (74-99) mg/dL POC Glucose (mg/dL) 200 H 258 H (75-99) mg/dL Magnesium (1.6-2.3) mg/dL Microbiology - Last 24 Hours (Table) 08/06/18 23:05 Gram Stain - Preliminary Sputum Sputum Culture - Preliminary Assessment and Plan Plan: #1. Acute exacerbation of chronic obstructive pulmonary disease complicated by purulent tracheobronchitis without katharina pneumonia. Nevertheless, the patient is producing copious amount of mucus and he has been infected with gram-negative bacteria including pseudomonas in the past. For that reason, and based on his recurrent hospitalization, on recommending antibiotic step up on this patient. #2. Previous history of heavy tobacco use #3. History of GERD/reflux #4. Hypertension, hyperlipidemia #5. Previous history of pneumonia #6. History of benign prostatic hypertrophy #7. Rheumatoid arthritis #8. Chronic back pain syndrome with pain pump insertion #9. History of diverticulosis #10. Migraine headache #11. Restless leg syndrome Plan Discontinue the Zithromax and this was this patient to IV Fortaz and collect sputum samples for Gram stain and culture. Continue bronchodilators. Continue the systemic steroids. May consider bronchoscopy if no improvement. Chest x- ray is not showing any evidence of acute pneumonia. Clinically is improving elevated recovery is slow. The patient's COPD is quite advanced. We'll continue to follow make further recommendations based on his progress.
[2018-08-07 17:03] LABS: Glucose,Whole Blood 240 mg/dL (75-99)
--- NOTE | 2018-08-07 19:47 | PN ---
PROGRESS NOTE DATE OF SERVICE: August 07, 2018. PRESENTING COMPLAINT: Short of breath and cough. INTERVAL HISTORY: Patient admitted with acute severe COPD exacerbation tracheobronchitis, still got some cough. Short of breath. Otherwise, tolerating a diet. Earlier seen by Dr. Pepe. Switched the patient over to IV Fortaz. Sputum cultures growing multiple organisms. REVIEW OF SYSTEMS: Done for constitutional, cardiovascular, GI, pulmonary and relevant findings as above. CURRENT MEDICATIONS: Reviewed that include IV ceftazidime, IV Solu-Medrol, inhaled Pulmicort. PHYSICAL EXAMINATION: VITAL SIGNS: Temperature 98.9, pulse 98, respiration 20, blood pressure 124/71, pulse ox 96 percent. GENERAL APPEARANCE: Sitting at the edge of the bed, tired. EYES: Pupils equal. Conjunctivae normal. NECK: JVD unable to assess. Mass not palpable. RESPIRATORY: Effort increased. LUNGS: Decreased breath sounds. Prolonged expiration. Some wheezing. CARDIOVASCULAR: First and second sounds normal. Some edema. ABDOMEN: Soft, nontender. Liver and spleen not palpable. Pain pump in place. PSYCHIATRY: Alert and oriented times three. Mood and affect a bit tired-appearing. INVESTIGATIONS: Potassium 5, BUN 45, creatinine 1.21. Accu-Cheks are noted. ASSESSMENT: 1. Acute chronic obstructive pulmonary disease exacerbation, slow to respond from underlying acute tracheobronchitis. 2. Gastroesophageal reflux disease. 3. Essential hypertension. 4. Hyperlipidemia. 5. Benign prostatic hypertrophy. 6. Chronic rheumatoid arthritis. 7. Hypothyroid. 8. Chronic hypoxic respiratory failure from underlying chronic obstructive pulmonary disease. 9. Acute hypoxic respiratory failure, present on admission. 10.Chronic colonic diverticulosis. 11.Mild cognitive impairment from underlying late onset Alzheimer's dementia. 12.Restless legs syndrome. 13.Chronic gait dysfunction uses a cane and a walker. 14.Chronic pain syndrome, cause undetermined with intrathecal pain pump being followed by Dr. Hilliard. PLAN: The patient be switched to IV Fortaz, sputum gram stain cultures are pending. Continue with bronchodilators and steroids. Care was discussed with the patient. MMODL / IJN: [id number] /
[2018-08-07 20:30] LABS: Glucose,Whole Blood 177 mg/dL (75-99)
[2018-08-07] MEDS: ATORVASTATIN 20 MG TAB PO SCH (20:57)
[2018-08-07] MEDS: SENNOSIDES 8.6 MG TAB PO SCH (20:58)
[2018-08-07] MEDS: PANTOPRAZOLE 40 MG TABLET PO SCH (20:58)
[2018-08-07] MEDS: DONEPEZIL 10 MG TAB PO SCH (20:59)
[2018-08-07] MEDS: TAMSULOSIN 0.4 MG CAP.ER.24H PO SCH (20:59)
[2018-08-07] MEDS: DOXEPIN 25 MG CAP PO SCH (21:00)
[2018-08-07] MEDS: FINASTERIDE 5 MG TAB PO SCH (21:03)
[2018-08-07] MEDS: MELATONIN 5 MG TABLET PO SCH (22:55)
[2018-08-08 04:50] LABS: Calcium 8.4 mg/dL (8.4-10.2)
[2018-08-08 04:51] LABS: Potassium 5.9 mmol/L (3.5-5.1)
[2018-08-08 06:55] LABS: Glucose,Whole Blood 211 mg/dL (75-99)
[2018-08-08] MEDS: LEVOTHYROXINE 50 MCG TAB PO SCH (07:03)
[2018-08-08] MEDS: INSULIN ASPART (NovoLOG) 100 UNIT/ML VIAL SQ SCH ×4 (07:04→22:24)
[2018-08-08] MEDS: FORMOTEROL FUMARATE 20 MCG/2 ML NEBU INHALATION SCH ×2 (07:36→20:26)
[2018-08-08] MEDS: IPRATROPIUM-ALBUTEROL 3 ML NEB INHALATION SCH ×4 (07:36→20:26)
[2018-08-08] MEDS: BUDESONIDE 0.5 MG/2 ML NEBU INHALATION SCH ×2 (07:36→20:26)
[2018-08-08] MEDS: LORazepam 0.5 MG TAB PO PRN ×2 (08:13→15:05)
[2018-08-08] MEDS: GABAPENTIN 400 MG CAP PO SCH ×3 (08:14→22:23)
[2018-08-08] MEDS: ISOSORBIDE MONONITRATE ER 60 MG TAB.ER.24H PO SCH (08:14)
[2018-08-08] MEDS: DILTIAZEM CD 120 MG CAP.ER.24H PO SCH (08:14)
[2018-08-08] MEDS: MULTIVITAMINS, THERA 1 EACH TAB PO SCH (08:15)
[2018-08-08] MEDS: MELOXICAM 7.5 MG TAB PO SCH (08:15)
[2018-08-08] MEDS: methylPREDNISolone SOD SUCCI 40 MG/ML 1 ML VIAL IV SCH (08:16)
[2018-08-08] MEDS: guaiFENesin 600 MG TABLET.ER PO SCH ×2 (08:18→22:23)
[2018-08-08] MEDS ORDERED: FUROSEMIDE 10 MG/ML 4 ML VIAL IV STA (08:53)
[2018-08-08 11:47] LABS: Glucose,Whole Blood 236 mg/dL (75-99)
[2018-08-08] MEDS: methylPREDNISolone SOD SUCCI 125 MG/2 ML VIAL IV SCH ×2 (12:01→18:15)
--- NOTE | 2018-08-08 12:29 | P.PN ---
Subjective Progress Note Date: 08/08/18 On today's evaluation of 08/07/2018 I'm seeing this patient for a follow-up. He is in for an acute COPD exacerbation. This is a readmission after a hospitalization for the same. The patient was unable to stay at home for more than a few hours and he end up coming back for the same problem which included increased shortness of breath, dyspnea, cough, bronchospasm, and wheeze. He is still producing copious amount of rest or secretions and based on previous cultures, the patient had Pseudomonas and other gram-negative bacteria. For this reason, I'm recommending antibiotics which. I was able also to collect a sputum sample for emesis. Currently is still shortness of breath. He gets short of breath with amount of activity. His cough is congested. As mentioned he is producing significant amount of sputum. No fever. No chills. No hemoptysis. No pleurisy. No altered mentation. He is on oxygen at 3 L per minute nasal cannula for now. He did not require BiPAP during this current hospitalization. His vitals are stable. No altered mentation. . and he is also on IV Solu-Medrol at a dose of 40 mg every 8 hours. His blood sugars are slightly elevated and this being controlled by sliding scale coverage. No major swelling lower extremities. No angina. No other complaints otherwise for now. On today's evaluation of 08/08/2018 I'm seeing this patient for a follow-up. Sputum production is improved compared to yesterday. He is on IV Fortaz. No nausea. No vomiting. No abdominal pain. He continues to BE short of breath with limited amount of activity. He has developed some cushingoid features related to ongoing steroid therapy. I stopped of his IV Solu Medrol to 60 mg a push every 6 hours. He is on DuoNeb nebulized treatments around the clock.H e is on a antibiotics include IV Fortaz 1 g every 12 hours. The preliminary sputum analysis is showing rare gram-negative diplococci, moderate gram-negative bacilli and many gram-positive cocci. He is afebrile. Is tolerating his diet. Nausea. No vomiting. Dumping pedal chest pain. No angina. No other significa nt events overnight Objective - Vital Signs Vital signs: Vital Signs Temp 98.8 F 08/08/18 07:00 Pulse 80 08/08/18 11:59 Resp 22 08/08/18 07:00 BP 120/83 08/08/18 07:00 Pulse Ox 95 08/08/18 07:00 Intake & Output 08/07/18 08/08/18 08/08/18 18:59 06:59 18:59 Intake Total 580 500 Balance 580 500 Weight 119.5 kg Intake: Intake, IV Titration 100 Amount cefTAZidime 1 gm In 100 Sodium Chloride 0.9% 50 ml @ 100 mls/hr IVPB Q8HR [facility] Rx#:[id number] Oral 480 500 Other: Voiding Method Toilet Toilet Toilet # Voids 1 2 # Bowel Movements 1 - Exam GENERAL EXAM: Alert, pleasant, obese 83-year-old white male, currently on 3 L of oxygen, he has [id number] conversational dyspnea, HEAD: Normocephalic/atraumatic. EYES: Normal reaction of pupils, equal size. Conjunctiva pink, sclera white. NOSE: Clear with pink turbinates. THROAT: No erythema or exudates. NECK: No masses, no JVD, no thyroid enlargement, no adenopathy. CHEST: No chest wall deformity. Symmetrical expansion. LUNGS: Equal air entry with diffuse wheezing CVS: Regular rate and rhythm, normal S1 and S2, no gallops, no murmurs, no rubs ABDOMEN: Soft, nontender. No hepatosplenomegaly, normal bowel sounds, no guarding or rigidity. EXTREMITIES: No clubbing, no edema, no cyanosis, 2+ pulses and upper and lower extremities. MUSCULOSKELETAL: Muscle strength and tone normal. SPINE: No scoliosis or deformity SKIN: No rashes CENTRAL NERVOUS SYSTEM: Alert and oriented -3. No focal deficits, tone is normal in all 4 extremities. PSYCHIATRIC: Alert and oriented -3. Appropriate affect. Intact judgment and insight. - Labs CBC & Chem 7: 08/03/18 17:40 08/08/18 04:20 Labs: Abnormal Lab Results - Last 24 Hours (Table) 08/07/18 08/07/18 08/08/18 Range/Units 17:01 20:29 04:20 Potassium 5.9 H (3.5-5.1) mmol/L Carbon Dioxide 33 H (22-30) mmol/L BUN 44 H (9-20) mg/dL Glucose 211 H (74-99) mg/dL POC Glucose (mg/dL) 240 H 177 H (75-99) mg/dL 08/08/18 08/08/18 Range/Units 06:54 11:45 Potassium (3.5-5.1) mmol/L Carbon Dioxide (22-30) mmol/L BUN (9-20) mg/dL Glucose (74-99) mg/dL POC Glucose (mg/dL) 211 H 236 H (75-99) mg/dL Microbiology - Last 24 Hours (Table) 08/06/18 23:05 Gram Stain - Preliminary Sputum Sputum Culture - Preliminary Assessment and Plan Plan: #1. Acute exacerbation of chronic obstructive pulmonary disease complicated by purulent tracheobronchitis without katharina pneumonia. Nevertheless, the patient is producing copious amount of mucus and he has been infected with gram-negative bacteria including pseudomonas in the past. For that reason, and based on his recurrent hospitalization, on recommending antibiotic step up on this patient. The patient is currently on IV Fortaz. Amoxicillin production is improved compared to yesterday. He is still on a combination of bronchodilators, systemic steroids. Limited improvement in symptoms of shortness of breath compared to yesterday. Amount of sputum production is less. The patient is gram-negative bacteria in his sputum analysis and Gram stain. Cultures still pending for now. #2. Previous history of heavy tobacco use #3. History of GERD/reflux #4. Hypertension, hyperlipidemia #5. Previous history of pneumonia #6. History of benign prostatic hypertrophy #7. Rheumatoid arthritis #8. Chronic back pain syndrome with pain pump insertion #9. History of diverticulosis #10. Migraine headache #11. Restless leg syndrome Plan Continue IV Fortaz. Increase his IV Solu Medrol 60 mg every 6 hours. Consider bronchoscopy if no improvement. Awaiting final sputum culture results. Continue bronchodilators. His COPD is in progress and will continue to follow.
[2018-08-08] MEDS: HYDROcodone/APAP 10-325MG 1 EACH TAB PO PRN (15:04)
--- NOTE | 2018-08-08 16:19 | PN ---
PROGRESS NOTE DATE OF SERVICE: 08/08/2018 PRESENTING COMPLAINT: Short of breath, cough. INTERVAL HISTORY: Patient was admitted with acute severe COPD exacerbation, tracheobronchitis, bringing up some phlegm, green in color. He still gets a bit short of breath, though better than before. Eating well. On oxygen. REVIEW OF SYSTEMS: Done for constitutional, cardiovascular, GI, pulmonary; relevant findings as above. CURRENT MEDICATIONS: Reviewed. They include: 1. IV ceftazidime. 2. IV Solu-Medrol, dose of which has been increased to 60 q.6. PHYSICAL EXAMINATION: Temperature 98.8, pulse 89, respiration 20, blood pressure 110/78, pulse ox 95% on room air. GENERAL APPEARANCE: Lying in bed, tired, short of breath. EYES: Pupils equal. Conjunctivae normal. NECK: JVD unable to assess. Mass not palpable. RESPIRATORY: Effort increased. LUNGS: Decreased breath sounds. Prolonged expiration. Expiratory wheezing. CARDIOVASCULAR: First and second sounds normal. Some edema. ABDOMEN: Soft, nontender. Liver and spleen not palpable. Pain pump in place. PSYCHIATRY: Alert and oriented x3. Mood and affect normal. INVESTIGATIONS: Potassium 5.9, BUN 44, creatinine 1.22. ASSESSMENT: 1. Acute chronic obstructive pulmonary disease exacerbation, slow to respond; in fact, worsening from underlying acute tracheobronchitis. Dose of steroids has been increased. 2. Gastroesophageal reflux disease. 3. Essential hypertension. 4. Hyperlipidemia. 5. Benign prostatic hypertrophy. 6. Chronic rheumatoid arthritis. 7. Hypothyroid. 8. Chronic hypoxic respiratory failure from underlying chronic obstructive pulmonary disease. 9. Acute hypoxic respiratory failure, present on admission. 10.Chronic colonic diverticulosis. 11.Mild cognitive impairment from underlying late-onset Alzheimer's dementia. 12.Restless legs syndrome. 13.Chronic gait dysfunction. Uses a cane and a walker. 14.Chronic pain syndrome, cause undetermined, with intrathecal pain pump being followed by Dr. Hilliard. PLAN: Patient's sputum cultures are pending. Dose of steroids has been increased. Care was discussed with Dr. Pepe. Patient is slow to respond. Will follow. MMODL / IJN: [id number] /
[2018-08-08 16:47] LABS: Glucose,Whole Blood 203 mg/dL (75-99)
[2018-08-08 20:32] LABS: Glucose,Whole Blood 254 mg/dL (75-99)
[2018-08-08] MEDS: SENNOSIDES 8.6 MG TAB PO SCH (22:22)
[2018-08-08] MEDS: ATORVASTATIN 20 MG TAB PO SCH (22:22)
[2018-08-08] MEDS: PANTOPRAZOLE 40 MG TABLET PO SCH (22:23)
[2018-08-08] MEDS: TAMSULOSIN 0.4 MG CAP.ER.24H PO SCH (22:23)
[2018-08-08] MEDS: DOXEPIN 25 MG CAP PO SCH (22:24)
[2018-08-08] MEDS: FINASTERIDE 5 MG TAB PO SCH (22:24)
[2018-08-08] MEDS: MELATONIN 5 MG TABLET PO SCH (22:25)
[2018-08-08] MEDS: DONEPEZIL 10 MG TAB PO SCH (22:25)
[2018-08-08] MEDS ORDERED: INSULIN DETEMIR (LEVEMIR) 100 UNIT/ML SYR SQ ONE (22:30)
[2018-08-09] MEDS: methylPREDNISolone SOD SUCCI 125 MG/2 ML VIAL IV SCH ×5 (00:15→23:02)
[2018-08-09] MEDS: LORazepam 0.5 MG TAB PO PRN ×2 (01:49→21:21)
[2018-08-09] MEDS: IPRATROPIUM-ALBUTEROL 3 ML NEB INHALATION PRN (02:19)
[2018-08-09] MEDS: LEVOTHYROXINE 50 MCG TAB PO SCH (05:48)
[2018-08-09 06:46] LABS: Glucose,Whole Blood 207 mg/dL (75-99)
[2018-08-09] MEDS: FORMOTEROL FUMARATE 20 MCG/2 ML NEBU INHALATION SCH ×2 (07:28→19:03)
[2018-08-09] MEDS: BUDESONIDE 0.5 MG/2 ML NEBU INHALATION SCH (07:28)
[2018-08-09] MEDS: IPRATROPIUM-ALBUTEROL 3 ML NEB INHALATION SCH ×4 (07:28→19:03)
[2018-08-09] MEDS: GABAPENTIN 400 MG CAP PO SCH ×3 (08:06→21:21)
[2018-08-09] MEDS: MELOXICAM 7.5 MG TAB PO SCH (08:07)
[2018-08-09] MEDS: guaiFENesin 600 MG TABLET.ER PO SCH ×2 (08:07→21:21)
[2018-08-09] MEDS: MULTIVITAMINS, THERA 1 EACH TAB PO SCH (08:07)
[2018-08-09] MEDS: DILTIAZEM CD 120 MG CAP.ER.24H PO SCH (08:10)
[2018-08-09] MEDS: INSULIN ASPART (NovoLOG) 100 UNIT/ML VIAL SQ SCH ×4 (08:10→21:24)
[2018-08-09] MEDS: HYDROcodone/APAP 10-325MG 1 EACH TAB PO PRN ×2 (08:19→21:31)
[2018-08-09] MEDS: ISOSORBIDE MONONITRATE ER 60 MG TAB.ER.24H PO SCH (09:43)
[2018-08-09 10:03] LABS: Calcium 8.2 mg/dL (8.4-10.2); Potassium 4.9 mmol/L (3.5-5.1); Total Bilirubin 0.6 mg/dL (0.2-1.3); Total Protein 5.2 g/dL (6.3-8.2)
--- NOTE | 2018-08-09 11:33 | XR ---
EXAMINATION TYPE: XR chest 1V portable DATE OF EXAM: 08/09/2018 HISTORY: Shortness of breath. COMPARISON: 08/03/2018 TECHNIQUE: Single view of the chest is submitted. FINDINGS: Demonstrated are scattered senescent parenchymal change. There is no evidence for focal infiltrate. The heart is stable. Hilar and mediastinal structures are within normal limits. Degenerative changes are seen of the dorsal spine. IMPRESSION: 1. Chronic changes without evidence for acute pulmonary disease.
[2018-08-09 11:35] LABS: Glucose,Whole Blood 260 mg/dL (75-99)
[2018-08-09] MEDS ORDERED: VANCOMYCIN IV PER PHARMACY 1 EACH MISC MISCELLANE PRN (13:21)
[2018-08-09] MEDS: VANCOMYCIN 1,750 MG in SODIUM CHLORIDE 0.9% 500 ML 500 ML IVPB SCH (15:28)
[2018-08-09] MEDS: THEOPHYLLINE 24 HOUR 200 MG CAP.ER.24H PO SCH (15:43)
--- NOTE | 2018-08-09 16:06 | P.PN ---
Subjective Progress Note Date: 08/09/18 Principal diagnosis: Acute respiratory distress, shortness of breath, acute on chronic hypoxic respiratory failure On 08/02/2018 patient seen in follow-up on medical surgical floor. He is awake and alert, oriented 3, he sitting up in bed, he states his breathing has not improved significantly, still quite bronchospastic, coughing, and congested. Vital signs remain stable, room air pulse ox is 92%, patient is afebrile. Blood culture showed no growth. Today's labs have been reviewed, showed sodium of 139, potassium is 4.6, chloride is 99, CO2 is 32, B1 is 29 creatinine was 1.26. Patient is being treated with a combination of antibiotics, nebulized bronchodilators, mucolytic's, and has received 2 doses of IV Lasix, and Solu- Medrol 60 mg every 6 hours. On 08/03/2016 patient seen in follow-up on medical surgical floor. He is awake and alert, he was able to get up and take a shower, shave today, still gets dyspneic with exertion, recovers well would rest, lung sounds are positive for only minimal wheezing, overall much less bronchospastic and congested since he came in, no fever no chills, today's lab work has been reviewed, BNP was done, electrolytes are within normal limits with the exception of CO2, which is chronically elevated. Renal profile stable, with BUN of 38, creatinine is 1.27. On 08/04/2018 patient was seen again in the intensive care unit, patient was discharged home yesterday, however 2 hours later he started experiencing acute shortness of breath, started hyperventilating, he states he was having trouble getting air in, she called EMS, in the when EMS arrived his pulse ox was only in the 80s, he was placed on a nonrebreather mask, was given breathing treatments, and was brought into the emergency department. Did experience some sharp chest discomfort that was associated with his shortness of breath, however he states it did not last very long. EKG in the emergency department showed sinus tachycardia with PACs, no acute ischemic changes noted. Chest x-ray without any focal infiltrates, and there was clearing of the mild atelectasis in the left lower lobe compared to previous exam. [place] lab work was reviewed, and the white blood cell, was 10.0, hemoglobin is 11.8, electrolytes and quite large profile were within normal limits, BUN is 42, creatinine is 1.49, troponins were negative 2, proBNP was within normal limits at 625. Patient was afebrile, was dynamically stable, he was hypoxemic, and was placed on BiPAP support overnight, with pressures of 12 and 6 and FiO2 of 36%, currently he is back on nasal ca nnula at 3 L. No running IVs, patient was started on IV steroids, empiric antibiotics, breathing treatments, and this morning he is breathing easier, although still wheezy and congested. On 07/29/2017 patient seen in follow-up in the intensive care unit, he is awaiting a bed for a general medical floor, he has been on OUTPATIENT, he remains on 3 L of oxygen, Pulse ox is 96%, he is afebrile, hemodynamically stable, did not require BiPAP support last night, he states he still quite dyspneic with any exertion, requiring periods of rest. He feels very weak. Vital signs are stable, no fever or chills. Continues on empiric antibiotics, Pulmicort and Perforomist, IV steroids. On 08/09/2018 patient seen in follow-up on medical surgical floor. Patient is very congested, very wheezy and dyspneic, current antibiotic coverage is no form of Fortaz and vancomycin. Sputum cultures so far shown no growth, patient is bringing up copious amounts of brown colored sputum. Today we gave the patient dose of IV Lasix, but on today's labs his renal profile has worsened, with BUN of 47, and creatinine 1.28, patient has a audible congestion, and wheezing. Objective - Vital Signs Vital signs: Vital Signs Temp 98.2 F 08/09/18 12:07 Pulse 96 08/09/18 15:33 Resp 18 08/09/18 12:07 BP 124/77 08/09/18 12:07 Pulse Ox 96 08/09/18 12:07 Intake & Output 08/08/18 08/09/18 08/09/18 18:59 06:59 18:59 Intake Total 50 890 50 Balance 50 890 50 Weight 106.5 kg Intake: IV 50 cefTAZidime 1 gm In 50 Sodium Chloride 0.9% 50 ml @ 100 mls/hr IVPB Q12HR [facility] Rx#:[id number] Intake, IV Titration 50 Amount cefTAZidime 1 gm In 50 Sodium Chloride 0.9% 50 ml @ 100 mls/hr IVPB Q12HR [facility] Rx#:[id number] Oral 890 Other: Voiding Method Toilet Urinal Urinal # Voids 5 2 - Exam GENERAL EXAM: Alert, pleasant, obese 83-year-old white male, currently on 3 L of oxygen, he has [id number] conversational dyspnea, HEAD: Normocephalic/atraumatic. EYES: Normal reaction of pupils, equal size. Conjunctiva pink, sclera white. NOSE: Clear with pink turbinates. THROAT: No erythema or exudates. NECK: No masses, no JVD, no thyroid enlargement, no adenopathy. CHEST: No chest wall deformity. Symmetrical expansion. LUNGS: Equal air entry with diffuse wheezing and audible congestion CVS: Regular rate and rhythm, normal S1 and S2, no gallops, no murmurs, no rubs ABDOMEN: Soft, nontender. No hepatosplenomegaly, normal bowel sounds, no guarding or rigidity. EXTREMITIES: No clubbing, no edema, no cyanosis, 2+ pulses and upper and lower extremities. MUSCULOSKELETAL: Muscle strength and tone normal. SPINE: No scoliosis or deformity SKIN: No rashes CENTRAL NERVOUS SYSTEM: Alert and oriented -3. No focal deficits, tone is normal in all 4 extremities. PSYCHIATRIC: Alert and oriented -3. Appropriate affect. Intact judgment and insight. - Labs CBC & Chem 7: 08/03/18 17:40 08/09/18 09:04 Labs: Abnormal Lab Results - Last 24 Hours (Table) 08/08/18 08/08/18 08/09/18 Range/Units 16:46 20:30 06:44 Carbon Dioxide (22-30) mmol/L BUN (9-20) mg/dL Creatinine (0.66-1.25) mg/dL Glucose (74-99) mg/dL POC Glucose (mg/dL) 203 H 254 H 207 H (75-99) mg/dL Calcium (8.4-10.2) mg/dL Total Protein (6.3-8.2) g/dL Albumin (3.5-5.0) g/dL 08/09/18 08/09/18 Range/Units 09:04 11:34 Carbon Dioxide 31 H (22-30) mmol/L BUN 47 H (9-20) mg/dL Creatinine 1.28 H (0.66-1.25) mg/dL Glucose 238 H (74-99) mg/dL POC Glucose (mg/dL) 260 H (75-99) mg/dL Calcium 8.2 L (8.4-10.2) mg/dL Total Protein 5.2 L (6.3-8.2) g/dL Albumin 3.0 L (3.5-5.0) g/dL Microbiology - Last 24 Hours (Table) 08/06/18 23:05 Gram Stain - Final Sputum Sputum Culture - Final Assessment and Plan Plan: Assessment: #1. Acute exacerbation of chronic obstructive pulmonary disease complicated by purulent tracheobronchitis without katharina pneumonia. Recently hospitalized for COPD, discharged home yesterday, and readmitted for acute episode of respiratory distress, repeat chest x-rays in the emergency department were negative for any focal pneumonia or congestive heart failure #2. Previous history of heavy tobacco use #3. History of GERD/reflux #4. Hypertension, hyperlipidemia #5. Previous history of pneumonia #6. History of benign prostatic hypertrophy #7. Rheumatoid arthritis #8. Chronic back pain syndrome with pain pump insertion #9. History of diverticulosis #10. Migraine headache #11. Restless leg syndrome Plan: Use of BiPAP support as needed, with pressures of 12 and 5 and FiO2 to titrate to keep O2 sat at 90%, continue current antibiotic coverage, patient is quite congested, wheezy, dyspneic. We will schedule the patient for bronchoscopy with BAL tomorrow by Dr. Pepe. Nothing by mouth after midnight, patient is in agreement. I performed a history & physical examination of the patient and discussed their management with my nurse practitioner, Marta Herrera. I reviewed the nurse practitioner's note and agree with the documented findings and plan of care. Lung sounds are positive for diffuse wheezes and rhonchi The findings and the impression was discussed with the patient. I attest to the documentation by the nurse practitioner. Time with Patient: Less than 30
--- NOTE | 2018-08-09 16:21 | PN ---
PROGRESS NOTE DATE OF SERVICE: 08/09/2018 This 83-year-old gentleman who was admitted with COPD acute exacerbation also had acute purulent tracheobronchitis, had very slow improvement. The patient was extremely short of breath. Expiratory wheezing also present, CHF suspected but repeat x-ray repeated by me which was personally reviewed showed chronic changes without any acute evidence of fluid overload. Please note, patient has got very coarse crackles, but significantly prolonged expirations also. PAST MEDICAL HISTORY: Reviewed. REVIEW OF SYSTEMS: CARDIOVASCULAR SYSTEM: As mentioned earlier. RESPIRATORY: As mentioned earlier. GI no nausea or vomiting. no dysuria. CENTRAL NERVOUS SYSTEM: No numbness or weakness. CURRENT MEDICATIONS: Reviewed and include: 1. [place] 10 mg t.i.d. p.r.n. 2. DuoNeb q.i.d. and p.r.n. 3. Lipitor 20 mg q.h.s. 4. Pulmicort 1 mg b.i.d. 5. Ceftazidime 1 g IV b.i.d. 6. Cardizem CD 120 mg p.o. daily. 7. Aricept 10 mg q.h.s. 8. Sinequan 50 mg q.h.s. 9. Proscar 5 mg p.o. q.h.s. 10.Perforomist 20 mcg b.i.d. 11.Neurontin 800 mg p.o. daily. 12.Mucinex 1200 mg p.o. b.i.d. 13.NovoLog q.h.s. 14.Imdur 60 mg p.o. daily. 15.Synthroid 175 mcg p.o. daily. 16.Ativan 0.5 mg t.i.d. 17.Melatonin 5 mg p.o. q.h.s. 18.Mobic 50 mg p.o. daily. 19.Solu-Medrol 60 IV q.6h. 20.Multivitamins one p.o. daily. 21.Morphine pain pump. 22.Protonix 40 mg q.h.s. 23.Requip 2.5 mg t.i.d. 24.Senokot 17.2 mg q.h.s. 25.Flomax 0.4 daily. 26.Anthony-24. 27.Vancomycin 1.7 mg IV daily. PHYSICAL EXAM: GENERAL: Patient is alert, oriented x2. VITAL SIGNS: Pulse is 100. Blood pressure 124/77, respirations 18, temperature 98.2, pulse ox 96% on 3 L. HEENT is conjunctivae normal. Oral mucosa moist. NECK is no jugular venous distention. No carotid bruit. No lymph node enlargement. CARDIOVASCULAR SYSTEM: S1, S2. RESPIRATORY: Breath sounds diminished in the bases. A few scattered rhonchi. ABDOMEN: Soft, obese, nontender. No mass palpable. LEGS: Minimal bilateral leg edema. NERVOUS SYSTEM: Higher functions as mentioned earlier. Moves all 4 limbs. No focal motor or sensory deficits. LYMPHATICS: No lymph nodes palpable in the neck, axillae or groin. SKIN: No ulcer, rash or bleeding. JOINTS: No active deforming arthropathy. LABS: Sodium 130, potassium 4.9, WBC 10, hemoglobin 11.8 previously. ASSESSMENT: 1. Chronic obstructive pulmonary disease acute exacerbation with acute purulent tracheobronchitis with IV steroids. 2. Gastroesophageal reflux disease. 3. Hypertension. 4. Hyperlipidemia. 5. Benign prostatic hypertrophy. 6. Chronic rheumatoid arthritis. 7. Hypothyroidism. 8. Chronic hypoxic respiratory failure of underlying chronic obstructive pulmonary disease. 9. Acute hypoxic respiratory failure. 10.Chronic diverticulosis. 11.History of mild cognitive impairment with underlying late onset Alzheimer's dementia. 12.Restless leg syndrome. 13.Chronic gait disorder. 14.Chronic pain syndrome, on intrathecal pump being followed by Dr. Hilliard. RECOMMENDATIONS AND DISCUSSION: In this 83-year-old gentleman who presented with multiple complex medical issues, we will monitor the patient closely. Continue the current medications, continue with IV steroids. Continue the bronchodilators. Also recommend follow closely with Dr. Pepe. Consider possible bronchoscopy. Repeat labs will be ordered. Prognosis guarded because of multiple complex medical issues. Further recommendations to follow. See orders. We will monitor the blood sugars closely. MMODL / IJN: [id number] / MTDD
[2018-08-09 16:43] LABS: Glucose,Whole Blood 246 mg/dL (75-99)
[2018-08-09] MEDS: BUDESONIDE 1 MG/2 ML NEBU INHALATION SCH (19:03)
[2018-08-09 20:05] LABS: Glucose,Whole Blood 349 mg/dL (75-99)
[2018-08-09] MEDS: DONEPEZIL 10 MG TAB PO SCH (21:21)
[2018-08-09] MEDS: ATORVASTATIN 20 MG TAB PO SCH (21:21)
[2018-08-09] MEDS: SENNOSIDES 8.6 MG TAB PO SCH (21:21)
[2018-08-09] MEDS: TAMSULOSIN 0.4 MG CAP.ER.24H PO SCH (21:21)
[2018-08-09] MEDS: PANTOPRAZOLE 40 MG TABLET PO SCH (21:21)
[2018-08-09] MEDS: MELATONIN 5 MG TABLET PO SCH (21:21)
[2018-08-09] MEDS: FINASTERIDE 5 MG TAB PO SCH (21:22)
[2018-08-09] MEDS: DOXEPIN 25 MG CAP PO SCH (21:22)
[2018-08-10 02:37] LABS: Hemoglobin A1C 6.9 % (4.0-6.0)
[2018-08-10] MEDS: LEVOTHYROXINE 50 MCG TAB PO SCH (05:54)
[2018-08-10] MEDS: methylPREDNISolone SOD SUCCI 125 MG/2 ML VIAL IV SCH ×4 (05:54→23:16)
[2018-08-10] MEDS: LORazepam 0.5 MG TAB PO PRN (05:59)
[2018-08-10 07:08] LABS: Glucose,Whole Blood 197 mg/dL (75-99)
[2018-08-10] MEDS: BUDESONIDE 1 MG/2 ML NEBU INHALATION SCH ×2 (07:49→19:16)
[2018-08-10] MEDS: FORMOTEROL FUMARATE 20 MCG/2 ML NEBU INHALATION SCH ×2 (07:49→19:16)
[2018-08-10] MEDS: IPRATROPIUM-ALBUTEROL 3 ML NEB INHALATION SCH ×4 (07:49→19:16)
[2018-08-10 08:05] LABS: Calcium 8.3 mg/dL (8.4-10.2); Potassium 5.7 mmol/L (3.5-5.1)
[2018-08-10] MEDS: MULTIVITAMINS, THERA 1 EACH TAB PO SCH (08:27)
[2018-08-10] MEDS: INSULIN ASPART (NovoLOG) 100 UNIT/ML VIAL SQ SCH ×4 (08:33→21:04)
[2018-08-10 08:36] LABS: Basophils % (A) 0 %; Eosinophils % (A) 0 %; HCT 37.8 % (39.0-53.0); HGB 12.1 gm/dL (13.0-17.5); Lymphocytes # (A) 0.4 k/uL (1.0-4.8); Lymphocytes % (A) 3 %; MCH 31.5 pg (25.0-35.0); MCV 98.3 fL (80.0-100.0); Monocytes # (A) 0.4 k/uL (0-1.0); Monocytes % (A) 3 %; Neutrophils # (A) 11.3 k/uL (1.3-7.7); Neutrophils % (A) 94 %; Platelet Count 107 k/uL (150-450); RBC 3.85 m/uL (4.30-5.90); RDW 14.7 % (11.5-15.5); WBC 12.1 k/uL (3.8-10.6)
[2018-08-10] MEDS: guaiFENesin 600 MG TABLET.ER PO SCH ×2 (08:40→21:04)
[2018-08-10] MEDS: DILTIAZEM CD 120 MG CAP.ER.24H PO SCH (08:43)
[2018-08-10] MEDS: GABAPENTIN 400 MG CAP PO SCH ×3 (08:44→23:15)
[2018-08-10] MEDS: ISOSORBIDE MONONITRATE ER 60 MG TAB.ER.24H PO SCH (08:44)
[2018-08-10] MEDS ORDERED: SODIUM POLYSTYRENE SULFONATE 15 GM/60 ML BOTTLE PO ONE (10:02)
[2018-08-10 12:10] LABS: Glucose,Whole Blood 129 mg/dL (75-99)
[2018-08-10] MEDS ORDERED: MIDAZOLAM 2 MG/2 ML VIAL ONE (15:16)
[2018-08-10] MEDS ORDERED: GLYCOPYRROLATE 0.2 MG/ML 2 ML VIAL ONE (15:16)
[2018-08-10] MEDS ORDERED: fentaNYL (PF) 50 MCG/ML 2 ML AMP ONE (15:16)
[2018-08-10] MEDS ORDERED: LIDOCAINE 1% INJ 10MG/ML (20 ML MDV) ONE (15:16)
[2018-08-10] MEDS ORDERED: KETAMINE 10 MG/ML 20 ML VIAL ONE (15:16)
[2018-08-10] MEDS ORDERED: PROPOFOL 10 MG/ML 20 ML VIAL IV ONE (15:16)
[2018-08-10] MEDS ORDERED: IV FLUID CONTINUATION 1,000 ML IV ONE (15:22)
[2018-08-10] MEDS: MELOXICAM 7.5 MG TAB PO SCH (15:24)
[2018-08-10] MEDS: THEOPHYLLINE 24 HOUR 200 MG CAP.ER.24H PO SCH (15:24)
[2018-08-10] MEDS ORDERED: LIDOCAINE 2% INJ 20 MG/ML INTRATRACH ONE (15:42)
[2018-08-10] MEDS ORDERED: VANCOMYCIN IV PER PHARMACY 1 EACH MISC MISCELLANE PRN (16:03)
[2018-08-10] MEDS: VANCOMYCIN 1,750 MG in SODIUM CHLORIDE 0.9% 500 ML 500 ML IVPB SCH (16:51)
[2018-08-10] MEDS: FLUCONAZOLE 100 MG TAB PO SCH (17:04)
[2018-08-10] MEDS: HYDROcodone/APAP 10-325MG 1 EACH TAB PO PRN (17:08)
[2018-08-10 17:15] LABS: Glucose,Whole Blood 160 mg/dL (75-99)
--- NOTE | 2018-08-10 18:30 | P.PN ---
Subjective Progress Note Date: 08/10/18 Principal diagnosis: Acute respiratory distress, shortness of breath, acute on chronic hypoxic respiratory failure On 08/02/2018 patient seen in follow-up on medical surgical floor. He is awake and alert, oriented 3, he sitting up in bed, he states his breathing has not improved significantly, still quite bronchospastic, coughing, and congested. Vital signs remain stable, room air pulse ox is 92%, patient is afebrile. Blood culture showed no growth. Today's labs have been reviewed, showed sodium of 139, potassium is 4.6, chloride is 99, CO2 is 32, B1 is 29 creatinine was 1.26. Patient is being treated with a combination of antibiotics, nebulized bronchodilators, mucolytic's, and has received 2 doses of IV Lasix, and Solu- Medrol 60 mg every 6 hours. On 08/03/2016 patient seen in follow-up on medical surgical floor. He is awake and alert, he was able to get up and take a shower, shave today, still gets dyspneic with exertion, recovers well would rest, lung sounds are positive for only minimal wheezing, overall much less bronchospastic and congested since he came in, no fever no chills, today's lab work has been reviewed, BNP was done, electrolytes are within normal limits with the exception of CO2, which is chronically elevated. Renal profile stable, with BUN of 38, creatinine is 1.27. On 08/04/2018 patient was seen again in the intensive care unit, patient was discharged home yesterday, however 2 hours later he started experiencing acute shortness of breath, started hyperventilating, he states he was having trouble getting air in, she called EMS, in the when EMS arrived his pulse ox was only in the 80s, he was placed on a nonrebreather mask, was given breathing treatments, and was brought into the emergency department. Did experience some sharp chest discomfort that was associated with his shortness of breath, however he states it did not last very long. EKG in the emergency department showed sinus tachycardia with PACs, no acute ischemic changes noted. Chest x-ray without any focal infiltrates, and there was clearing of the mild atelectasis in the left lower lobe compared to previous exam. [place] lab work was reviewed, and the white blood cell, was 10.0, hemoglobin is 11.8, electrolytes and quite large profile were within normal limits, BUN is 42, creatinine is 1.49, troponins were negative 2, proBNP was within normal limits at 625. Patient was afebrile, was dynamically stable, he was hypoxemic, and was placed on BiPAP support overnight, with pressures of 12 and 6 and FiO2 of 36%, currently he is back on nasal ca nnula at 3 L. No running IVs, patient was started on IV steroids, empiric antibiotics, breathing treatments, and this morning he is breathing easier, although still wheezy and congested. On 07/29/2017 patient seen in follow-up in the intensive care unit, he is awaiting a bed for a general medical floor, he has been on OUTPATIENT, he remains on 3 L of oxygen, Pulse ox is 96%, he is afebrile, hemodynamically stable, did not require BiPAP support last night, he states he still quite dyspneic with any exertion, requiring periods of rest. He feels very weak. Vital signs are stable, no fever or chills. Continues on empiric antibiotics, Pulmicort and Perforomist, IV steroids. On 08/09/2018 patient seen in follow-up on medical surgical floor. Patient is very congested, very wheezy and dyspneic, current antibiotic coverage is no form of Fortaz and vancomycin. Sputum cultures so far shown no growth, patient is bringing up copious amounts of brown colored sputum. Today we gave the patient dose of IV Lasix, but on today's labs his renal profile has worsened, with BUN of 47, and creatinine 1.28, patient has a audible congestion, and wheezing. On 08/10/2018 patient is seen in follow-up on medical surgical floor. Patient has made very honest improvement if at all, despite being maximized on medical treatment, still quite dyspneic and wheezing, patient is afebrile, remains on supplemental oxygen at 3 L. Today's labs have been reviewed, showed white blood cell count of 12.1, hemoglobin of 12.1, sodium of 142, potassium is 5.7, chloride is 109, creatinine is 1.15. Antibiotic coverage in the form of Fortaz and vancomycin, patient underwent a bronchoscopy with BAL today with the removal of large amount of retained purulent secretions, and there has been significant candidiasis is noted as well. Objective - Vital Signs Vital signs: Vital Signs Temp 98.1 F 08/10/18 13:20 Pulse 92 08/10/18 16:25 Resp 20 08/10/18 13:20 BP 126/67 08/10/18 13:20 Pulse Ox 92 L 08/10/18 13:20 Intake & Output 08/09/18 08/10/18 08/10/18 18:59 06:59 18:59 Intake Total 50 1180 50 Balance 50 1180 50 Weight 108 kg 108 kg Intake: IV 50 50 cefTAZidime 1 gm In 50 50 Sodium Chloride 0.9% 50 ml @ 100 mls/hr IVPB Q12HR [facility] Rx#:[id number] Oral 1180 Other: Voiding Method Urinal Urinal Urinal # Voids 2 - Exam GENERAL EXAM: Alert, pleasant, obese 83-year-old white male, currently on 3 L of oxygen, he has [id number] conversational dyspnea, HEAD: Normocephalic/atraumatic. EYES: Normal reaction of pupils, equal size. Conjunctiva pink, sclera white. NOSE: Clear with pink turbinates. THROAT: No erythema or exudates. NECK: No masses, no JVD, no thyroid enlargement, no adenopathy. CHEST: No chest wall deformity. Symmetrical expansion. LUNGS: Equal air entry with diffuse wheezing and audible congestion CVS: Regular rate and rhythm, normal S1 and S2, no gallops, no murmurs, no rubs ABDOMEN: Soft, nontender. No hepatosplenomegaly, normal bowel sounds, no guarding or rigidity. EXTREMITIES: No clubbing, no edema, no cyanosis, 2+ pulses and upper and lower extremities. MUSCULOSKELETAL: Muscle strength and tone normal. SPINE: No scoliosis or deformity SKIN: No rashes CENTRAL NERVOUS SYSTEM: Alert and oriented -3. No focal deficits, tone is normal in all 4 extremities. PSYCHIATRIC: Alert and oriented -3. Appropriate affect. Intact judgment and insight. - Labs CBC & Chem 7: 08/10/18 07:23 08/10/18 07:23 Labs: Abnormal Lab Results - Last 24 Hours (Table) 08/09/18 08/09/18 08/10/18 Range/Units 09:04 20:04 07:07 WBC (3.8-10.6) k/uL RBC (4.30-5.90) m/uL Hgb (13.0-17.5) gm/dL Hct (39.0-53.0) % Plt Count (150-450) k/uL Neutrophils # (1.3-7.7) k/uL Lymphocytes # (1.0-4.8) k/uL Potassium (3.5-5.1) mmol/L Chloride (98-107) mmol/L BUN (9-20) mg/dL Glucose (74-99) mg/dL POC Glucose (mg/dL) 349 H 197 H (75-99) mg/dL Hemoglobin A1c 6.9 H (4.0-6.0) % Calcium (8.4-10.2) mg/dL 08/10/18 08/10/18 08/10/18 Range/Units 07:23 07:23 12:08 WBC 12.1 H (3.8-10.6) k/uL RBC 3.85 L (4.30-5.90) m/uL Hgb 12.1 L (13.0-17.5) gm/dL Hct 37.8 L (39.0-53.0) % Plt Count 107 L (150-450) k/uL Neutrophils # 11.3 H (1.3-7.7) k/uL Lymphocytes # 0.4 L (1.0-4.8) k/uL Potassium 5.7 H (3.5-5.1) mmol/L Chloride 109 H (98-107) mmol/L BUN 50 H (9-20) mg/dL Glucose 179 H (74-99) mg/dL POC Glucose (mg/dL) 129 H (75-99) mg/dL Hemoglobin A1c (4.0-6.0) % Calcium 8.3 L (8.4-10.2) mg/dL 08/10/18 Range/Units 17:13 WBC (3.8-10.6) k/uL RBC (4.30-5.90) m/uL Hgb (13.0-17.5) gm/dL Hct (39.0-53.0) % Plt Count (150-450) k/uL Neutrophils # (1.3-7.7) k/uL Lymphocytes # (1.0-4.8) k/uL Potassium (3.5-5.1) mmol/L Chloride (98-107) mmol/L BUN (9-20) mg/dL Glucose (74-99) mg/dL POC Glucose (mg/dL) 160 H (75-99) mg/dL Hemoglobin A1c (4.0-6.0) % Calcium (8.4-10.2) mg/dL Assessment and Plan Plan: Assessment: #1. Acute exacerbation of chronic obstructive pulmonary disease complicated by purulent tracheobronchitis without katharina pneumonia. Recently hospitalized for COPD, discharged home yesterday, and readmitted for acute episode of respiratory distress, repeat chest x-rays in the emergency department were negative for any focal pneumonia or congestive heart failure #2. Previous history of heavy tobacco use #3. History of GERD/reflux #4. Hypertension, hyperlipidemia #5. Previous history of pneumonia #6. History of benign prostatic hypertrophy #7. Rheumatoid arthritis #8. Chronic back pain syndrome with pain pump insertion #9. History of diverticulosis #10. Migraine headache #11. Restless leg syndrome #12. Significant orotracheal candidiasis Plan: Patient underwent bronchoscopy with BAL today, with removal of large amount of retained purulent secretions, and there is significant candidiasis. Will await the results of bronchial rash cultures, continue with Fortaz and vancomycin, we'll add oral Diflucan I performed a history & physical examination of the patient and discussed their management with my nurse practitioner, Marta Herrera. I reviewed the nurse practitioner's note and agree with the documented findings and plan of care. Lung sounds are positive for diffuse wheezes and rhonchi The findings and the impression was discussed with the patient. I attest to the documentation by the nurse practitioner. Time with Patient: Less than 30
--- NOTE | 2018-08-10 19:33 | PN ---
PROGRESS NOTE DATE OF SERVICE: 08/10/2018 This 83-year-old gentleman who was admitted with COPD acute exacerbation also had acute purulent tracheobronchitis. The patient was scheduled to have a bronchoscopy today by Dr. Pepe. No chest pain. No palpitations. No fever. EXAM: GENERAL: Alert and oriented times three. VITAL SIGNS: Pulse 93, blood pressure 126/67, respirations 20, temperature 98.2, pulse ox 98% on 2 L. HEENT is conjunctivae normal. NECK: No jugular venous distention. CARDIOVASCULAR: S1, S2 muffled. RESPIRATIONS: Breath sounds diminished in the bases. Bilateral scattered rhonchi and crackles. Expiratory wheezing. ABDOMEN: Soft and nontender. CENTRAL NERVOUS SYSTEM: No focal deficits. LEGS: No edema. No swelling. LAB STUDIES: WBC 2.1, hemoglobin 12.1 sodium 142, potassium 5.7. ASSESSMENT: 1. Chronic obstructive pulmonary disease acute exacerbation with acute purulent tracheobronchitis with IV steroids. 2. Gastroesophageal reflux disease. 3. Hypertension. 4. Hyperlipidemia. 5. Benign prostatic hypertrophy. 6. Chronic rheumatoid arthritis. 7. Hypothyroidism. 8. Chronic hypoxic respiratory failure with underlying chronic obstructive pulmonary disease. 9. Acute hypoxic respiratory failure. 10.Chronic diverticulosis. 11.History of mild cognitive impairment with underlying late onset Alzheimer's dementia. 12.Restless legs syndrome. 13.Chronic gait disorder. 14.Chronic pain syndrome on intrathecal pump being followed by Dr. Hilliard. RECOMMENDATIONS AND DISCUSSION: Recommend to continue current medications, symptomatic treatment, continue steroids, continue bronchodilators, bronchoscopy, Kayexalate, monitor potassium closely. Guarded prognosis. Further recommendations to follow. MMODL / IJN: [id number] /
--- NOTE | 2018-08-10 19:39 | P.PCN ---
Date of Procedure: 08/10/18 Preoperative Diagnosis: COPD exacerbation, shortness of breath Postoperative Diagnosis: Severe tracheal bronchomalacia, mucous plugging, purulent respiratory secretions encountered throughout the airways, extensive oropharyngeal /laryngeal candidiasis Procedure(s) Performed: Flexible bronchoscopy Anesthesia: MAC Surgeon: Tee Pepe Estimated Blood Loss (ml): 0 Pathology: other Condition: stable Disposition: floor Operative Findings: This procedure was done under conscious sedation. The patient was having ongoing difficulty in breathing and a congested cough and she was unable to bring up any sputum. Patient has been she is for COPD exacerbation for more than 3 days without any significant improvement. He continued to be bronchospastic and wheezing continued to have a congested cough along with ongoing bronchospasm wheezing. For that reason a bronchoscopy was indicated. For that reason the bronchoscopy was indicated. This procedure was done in the endoscopy suite. A consent was signed. A timeout was obtained and anesthetic agents was administered by WALL COVERING CONTRACTOR the bedside. After achieving adequate sedation, the flexible bronchoscope was inserted through the right nostril and was advanced into the upper airway. Examination of the posterior pharynx and larynx was done and there was significant abnormalities in the upper airways mainly cottage cheese-type of white material and growth and inflammatory changes throughout the posterior oropharynx, base of the tongue, pharyngeal wall and laryngeal wall circumferentially addition to epiglottis and arytenoids and vallecula. This is consistent with extensive candidal infection. The vocal cords were quite swollen and irritated and irregular. There was no evidence of any tumors or polyps in the function was within normal limits. The inflammatory changes was related to candidal infection of the upper airways. A total of 2 mL of 1% lidocaine was applied to the vocal cords and the flexible bronchoscope was advanced past the vocal cords into the upper trachea. Airway inspection was done and the visualized airways included the entire trachea, and the trachea shows considerable amount of tracheal bronchomalacia with dynamic obstruction with exhalation and cough an d.. At the level of the bilateral mainstem bronchii, there was noted that there was copious amount of respiratory secretions is quite purulent. Therapeutic airway suctioning was done and the purulent respiratory secretions and the plugs were suctioned out of the mainstem bronchii. Following that, the airway inspection was completed. The visualized airways included the right upper lobe bronchus, right mid the right lower lobe bronchus and on the left side airways were inspected with the left upper lobe bronchus and left lower lobe bronchus. Note that the rest of airways also revealed bronchomalacia in addition to extensive and copious respiratory secretions were purulent and had similar characteristics to the ones there were identified and the trachea. Therapeutic it was suctioning was done. Saline was irrigated and suctioned out. At the completion of the procedure, there was report patent and free of any significant rest or secretions. Bronchoscope was removed and the patient was transferred recovery in stable condition and following that he'll be chest and back to his room. He tolerated the procedure without any major difficulties. The samples that were collected was sent for microbial analysis. We'll continue to follow. The , I suggested the addition of vancomycin in addition to Fortaz. The patient was also placed on Diflucan.
[2018-08-10 19:56] LABS: Glucose,Whole Blood 160 mg/dL (75-99)
[2018-08-10 20:33] LABS: Color,BF Red; Nucleated Cells, Body Fluid 2300 /uL; RBC, Body Fluid 123500 /uL
[2018-08-10 20:38] LABS: Appearance,BF Bloody
[2018-08-10] MEDS: ATORVASTATIN 20 MG TAB PO SCH (21:02)
[2018-08-10] MEDS: DOXEPIN 25 MG CAP PO SCH (21:03)
[2018-08-10] MEDS: FINASTERIDE 5 MG TAB PO SCH (21:03)
[2018-08-10] MEDS: MELATONIN 5 MG TABLET PO SCH (21:04)
[2018-08-10] MEDS: TAMSULOSIN 0.4 MG CAP.ER.24H PO SCH (21:05)
[2018-08-10] MEDS: PANTOPRAZOLE 40 MG TABLET PO SCH (21:05)
[2018-08-10] MEDS: SENNOSIDES 8.6 MG TAB PO SCH (21:05)
[2018-08-10 21:07] LABS: Mononuclear WBC,Body Fluid 24 %; Polynuclear WBC,Body Fluid 76 %; Total Cells Counted,Body Fluid 100
[2018-08-10] MEDS: DONEPEZIL 10 MG TAB PO SCH (23:12)
[2018-08-11] MEDS: LEVOTHYROXINE 50 MCG TAB PO SCH (05:47)
[2018-08-11] MEDS: methylPREDNISolone SOD SUCCI 125 MG/2 ML VIAL IV SCH ×4 (05:48→23:28)
[2018-08-11 06:57] LABS: Glucose,Whole Blood 230 mg/dL (75-99)
[2018-08-11] MEDS: INSULIN ASPART (NovoLOG) 100 UNIT/ML VIAL SQ SCH ×5 (08:00→21:28)
[2018-08-11] MEDS: GABAPENTIN 400 MG CAP PO SCH ×3 (08:00→21:27)
[2018-08-11] MEDS: MULTIVITAMINS, THERA 1 EACH TAB PO SCH (08:01)
[2018-08-11] MEDS: guaiFENesin 600 MG TABLET.ER PO SCH ×2 (08:01→21:28)
[2018-08-11] MEDS: DILTIAZEM CD 120 MG CAP.ER.24H PO SCH (08:01)
[2018-08-11] MEDS: THEOPHYLLINE 24 HOUR 200 MG CAP.ER.24H PO SCH (08:04)
[2018-08-11 08:06] LABS: HCT 36.5 % (39.0-53.0); HGB 11.7 gm/dL (13.0-17.5); Hypochromasia Slight; MCH 31.7 pg (25.0-35.0); MCHC 31.9 g/dL (31.0-37.0); MCV 99.2 fL (80.0-100.0); Macrocytosis Slight; Mean Platelet Volume 7.6; Platelet Count 138 k/uL (150-450); RBC 3.68 m/uL (4.30-5.90); RDW 15.1 % (11.5-15.5); WBC 9.1 k/uL (3.8-10.6)
[2018-08-11] MEDS: ISOSORBIDE MONONITRATE ER 60 MG TAB.ER.24H PO SCH (08:10)
[2018-08-11] MEDS: FLUCONAZOLE 100 MG TAB PO SCH (08:10)
[2018-08-11] MEDS: IPRATROPIUM-ALBUTEROL 3 ML NEB INHALATION SCH ×4 (08:27→19:21)
[2018-08-11] MEDS: BUDESONIDE 1 MG/2 ML NEBU INHALATION SCH ×2 (08:27→19:21)
[2018-08-11] MEDS: FORMOTEROL FUMARATE 20 MCG/2 ML NEBU INHALATION SCH ×2 (08:27→19:21)
[2018-08-11 08:34] LABS: Potassium 4.9 mmol/L (3.5-5.1)
[2018-08-11 11:37] LABS: Glucose,Whole Blood 214 mg/dL (75-99)
[2018-08-11 12:52] LABS: Lymphocytes # (M) 0.82 k/uL (1.0-4.8); Monocytes # (M) 0.09 k/uL (0-1.0); Neutrophils # (M) 8.19 k/uL (1.3-7.7); Neutrophils % (M) 90 %; Nucleated Red Blood Cells 0 /100 WBC (0-0); Total Cells Counted 100
[2018-08-11 12:53] LABS: Anisocytosis (M) Present
--- NOTE | 2018-08-11 15:12 | P.PN ---
Subjective Progress Note Date: 08/11/18 Principal diagnosis: Acute respiratory distress, shortness of breath, acute on chronic hypoxic respiratory failure On 08/02/2018 patient seen in follow-up on medical surgical floor. He is awake and alert, oriented 3, he sitting up in bed, he states his breathing has not improved significantly, still quite bronchospastic, coughing, and congested. Vital signs remain stable, room air pulse ox is 92%, patient is afebrile. Blood culture showed no growth. Today's labs have been reviewed, showed sodium of 139, potassium is 4.6, chloride is 99, CO2 is 32, B1 is 29 creatinine was 1.26. Patient is being treated with a combination of antibiotics, nebulized bronchodilators, mucolytic's, and has received 2 doses of IV Lasix, and Solu- Medrol 60 mg every 6 hours. On 08/03/2016 patient seen in follow-up on medical surgical floor. He is awake and alert, he was able to get up and take a shower, shave today, still gets dyspneic with exertion, recovers well would rest, lung sounds are positive for only minimal wheezing, overall much less bronchospastic and congested since he came in, no fever no chills, today's lab work has been reviewed, BNP was done, electrolytes are within normal limits with the exception of CO2, which is chronically elevated. Renal profile stable, with BUN of 38, creatinine is 1.27. On 08/04/2018 patient was seen again in the intensive care unit, patient was discharged home yesterday, however 2 hours later he started experiencing acute shortness of breath, started hyperventilating, he states he was having trouble getting air in, she called EMS, in the when EMS arrived his pulse ox was only in the 80s, he was placed on a nonrebreather mask, was given breathing treatments, and was brought into the emergency department. Did experience some sharp chest discomfort that was associated with his shortness of breath, however he states it did not last very long. EKG in the emergency department showed sinus tachycardia with PACs, no acute ischemic changes noted. Chest x-ray without any focal infiltrates, and there was clearing of the mild atelectasis in the left lower lobe compared to previous exam. [place] lab work was reviewed, and the white blood cell, was 10.0, hemoglobin is 11.8, electrolytes and quite large profile were within normal limits, BUN is 42, creatinine is 1.49, troponins were negative 2, proBNP was within normal limits at 625. Patient was afebrile, was dynamically stable, he was hypoxemic, and was placed on BiPAP support overnight, with pressures of 12 and 6 and FiO2 of 36%, currently he is back on nasal ca nnula at 3 L. No running IVs, patient was started on IV steroids, empiric antibiotics, breathing treatments, and this morning he is breathing easier, although still wheezy and congested. On 07/29/2017 patient seen in follow-up in the intensive care unit, he is awaiting a bed for a general medical floor, he has been on OUTPATIENT, he remains on 3 L of oxygen, Pulse ox is 96%, he is afebrile, hemodynamically stable, did not require BiPAP support last night, he states he still quite dyspneic with any exertion, requiring periods of rest. He feels very weak. Vital signs are stable, no fever or chills. Continues on empiric antibiotics, Pulmicort and Perforomist, IV steroids. On 08/09/2018 patient seen in follow-up on medical surgical floor. Patient is very congested, very wheezy and dyspneic, current antibiotic coverage is no form of Fortaz and vancomycin. Sputum cultures so far shown no growth, patient is bringing up copious amounts of brown colored sputum. Today we gave the patient dose of IV Lasix, but on today's labs his renal profile has worsened, with BUN of 47, and creatinine 1.28, patient has a audible congestion, and wheezing. On 08/10/2018 patient is seen in follow-up on medical surgical floor. Patient has made very honest improvement if at all, despite being maximized on medical treatment, still quite dyspneic and wheezing, patient is afebrile, remains on supplemental oxygen at 3 L. Today's labs have been reviewed, showed white blood cell count of 12.1, hemoglobin of 12.1, sodium of 142, potassium is 5.7, chloride is 109, creatinine is 1.15. Antibiotic coverage in the form of Fortaz and vancomycin, patient underwent a bronchoscopy with BAL today with the removal of large amount of retained purulent secretions, and there has been significant candidiasis is noted as well. On 08/11/2018 patient seen in follow-up on medical surgical floor. He still dys pneic and ankle spastic, but a lot less congested. 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 Sputum and bronchial wash cultures are pending at this time, Gram stain showed moderate gram-positive cocci, few yeast and few gram-positive bacilli. he is on the abiotic coverage in the form of Fortaz, vancomycin, yesterday we added Diflucan for oral candidiasis, patient is on IV steroids, and nebulized bronchodilators. Objective - Vital Signs Vital signs: Vital Signs Temp 97.7 F 08/11/18 11:38 Pulse 95 08/11/18 11:38 Resp 18 08/11/18 11:38 BP 125/72 08/11/18 11:38 Pulse Ox 94 L 08/11/18 11:38 Intake & Output 08/10/18 08/11/18 08/11/18 18:59 06:59 18:59 Intake Total 50 740 Balance 50 740 Weight 108 kg 100.6 kg Intake: IV 50 cefTAZidime 1 gm In 50 Sodium Chloride 0.9% 50 ml @ 100 mls/hr IVPB Q12HR [facility] Rx#:[id number] Oral 740 Other: Voiding Method Urinal Urinal Urinal # Voids 2 - Exam GENERAL EXAM: Alert, pleasant, obese 83-year-old white male, currently on 3 L of oxygen, he has [id number] conversational dyspnea, HEAD: Normocephalic/atraumatic. EYES: Normal reaction of pupils, equal size. Conjunctiva pink, sclera white. NOSE: Clear with pink turbinates. THROAT: No erythema or exudates. NECK: No masses, no JVD, no thyroid enlargement, no adenopathy. CHEST: No chest wall deformity. Symmetrical expansion. LUNGS: Equal air entry with diffuse wheezing and audible congestion CVS: Regular rate and rhythm, normal S1 and S2, no gallops, no murmurs, no rubs ABDOMEN: Soft, nontender. No hepatosplenomegaly, normal bowel sounds, no guarding or rigidity. EXTREMITIES: No clubbing, no edema, no cyanosis, 2+ pulses and upper and lower extremities. MUSCULOSKELETAL: Muscle strength and tone normal. SPINE: No scoliosis or deformity SKIN: No rashes CENTRAL NERVOUS SYSTEM: Alert and oriented -3. No focal deficits, tone is normal in all 4 extremities. PSYCHIATRIC: Alert and oriented -3. Appropriate affect. Intact judgment and insight. - Labs CBC & Chem 7: 08/11/18 06:52 08/11/18 06:52 Labs: Abnormal Lab Results - Last 24 Hours (Table) 08/10/18 08/10/18 08/11/18 Range/Units 17:13 19:55 06:52 RBC (4.30-5.90) m/uL Hgb (13.0-17.5) gm/dL Hct (39.0-53.0) % Plt Count (150-450) k/uL Neutrophils # (Manual) (1.3-7.7) k/uL Lymphocytes # (Manual) (1.0-4.8) k/uL Carbon Dioxide 32 H (22-30) mmol/L BUN 43 H (9-20) mg/dL Glucose 189 H (74-99) mg/dL POC Glucose (mg/dL) 160 H 160 H (75-99) mg/dL Calcium 8.0 L (8.4-10.2) mg/dL 08/11/18 08/11/18 08/11/18 Range/Units 06:52 06:56 11:36 RBC 3.68 L (4.30-5.90) m/uL Hgb 11.7 L (13.0-17.5) gm/dL Hct 36.5 L (39.0-53.0) % Plt Count 138 L (150-450) k/uL Neutrophils # (Manual) 8.19 H (1.3-7.7) k/uL Lymphocytes # (Manual) 0.82 L (1.0-4.8) k/uL Carbon Dioxide (22-30) mmol/L BUN (9-20) mg/dL Glucose (74-99) mg/dL POC Glucose (mg/dL) 230 H 214 H (75-99) mg/dL Calcium (8.4-10.2) mg/dL Microbiology - Last 24 Hours (Table) 08/10/18 15:40 Gram Stain - Preliminary Bronchial Washings - Random Bronchial Washings Culture - Preliminary Assessment and Plan Plan: Assessment: #1. Acute exacerbation of chronic obstructive pulmonary disease complicated by purulent tracheobronchitis without katharina pneumonia. Recently hospitalized for COPD, discharged home yesterday, and readmitted for acute episode of respiratory distress, repeat chest x-rays in the emergency department were negative for any focal pneumonia or congestive heart failure #2. Previous history of heavy tobacco use #3. History of GERD/reflux #4. Hypertension, hyperlipidemia #5. Previous history of pneumonia #6. History of benign prostatic hypertrophy #7. Rheumatoid arthritis #8. Chronic back pain syndrome with pain pump insertion #9. History of diverticulosis #10. Migraine headache #11. Restless leg syndrome #12. Significant orotracheal candidiasis Plan: Continue current medical treatment, current antibiotics, will await results of the bronchoscopy cultures, patient is sounding better on today's exam, still dyspneic and bronchospastic, but less congested. We will add IV Lasix, acute and he was, daily weights, follow-up BMP tomorrow I performed a history & physical examination of the patient and discussed their management with my nurse practitioner, Marta Herrera. I reviewed the nurse practitioner's note and agree with the documented findings and plan of care. Lung sounds are positive for diffuse wheezes and rhonchi The findings and the impression was discussed with the patient. I attest to the documentation by the nurse practitioner. Time with Patient: Less than 30
[2018-08-11] MEDS: VANCOMYCIN 1,750 MG in SODIUM CHLORIDE 0.9% 500 ML 500 ML IVPB SCH (16:14)
--- NOTE | 2018-08-11 17:10 | P.PN ---
Subjective Progress Note Date: 08/11/18 Principal diagnosis: Acute respiratory distress, shortness of breath, acute on chronic hypoxic respiratory failure 08/11/2018 patient seen in follow-up on medical surgical floor. He still dyspneic and ankle spastic, but a lot less congested. Sound doing better on today's exam, yesterday patient underwent bronchoscopy with BAL would removal of large amount of purulent secretions from his airways, patient is still coughing and bringing up some ovalles colored phlegm, but is leather grader in color, remains on oxygen at 3 L and his pulse ox is 94%, afebrile. Sputum and bronchial wash cultures are pending at this time, Gram stain showed moderate gram-positive cocci, few yeast and few gram-positive bacilli. he is on the abiotic coverage in the form of Fortaz, vancomycin, yesterday we added Diflucan for oral candidiasis, patient is on IV steroids, and nebulized bronchodilators. Objective - Vital Signs Vital signs: Vital Signs Temp 97.8 F 08/11/18 05:00 Pulse 87 08/11/18 11:25 Resp 20 08/11/18 08:00 BP 137/73 08/11/18 05:00 Pulse Ox 96 08/11/18 08:29 Intake & Output 08/10/18 08/11/18 08/11/18 18:59 06:59 18:59 Intake Total 50 740 Balance 50 740 Weight 108 kg 100.6 kg Intake: IV 50 cefTAZidime 1 gm In 50 Sodium Chloride 0.9% 50 ml @ 100 mls/hr IVPB Q12HR [facility] Rx#:[id number] Oral 740 Other: Voiding Method Urinal Urinal Urinal # Voids 2 - Exam - Constitutional General appearance: Present: average body habitus, cooperative, no acute distress - EENT Eyes: Present: anicteric sclerae, EOMI, PERRLA, normal appearance ENT: Present: hearing grossly normal, normal oropharynx Ears: bilateral: normal - Neck Neck: Present: normal ROM. Absent: lymphadenopathy, rigidity, thyromegaly Carotids: negative: bruit present Thyroid: bilateral: normal size, negative: enlarged, nodule - Respiratory Respiratory: bilateral: CTA, negative: rales, rhonchi, wheezing - Cardiovascular Rhythm: regular Heart sounds: normal: S1, S2 Abnormal Heart Sounds: Absent: systolic murmur, diastolic murmur - Gastrointestinal General gastrointestinal: Present: normal bowel sounds, soft. Absent: distended, organomegaly, tenderness - Genitourinary Genitourinary Comment(s): deferred - Integumentary Integumentary: Present: normal turgor. Absent: jaundiced, rash, ulcer - Neurologic Neurologic: Present: CNII-XII intact. Absent: focal deficits - Musculoskeletal Musculoskeletal: Present: gait normal, strength equal bilaterally - Psychiatric Psychiatric: Present: A&O x's 3, appropriate affect, intact judgment & insight - Labs CBC & Chem 7: 08/11/18 06:52 08/11/18 06:52 Labs: Abnormal Lab Results - Last 24 Hours (Table) 08/10/18 08/10/18 08/10/18 Range/Units 12:08 17:13 19:55 RBC (4.30-5.90) m/uL Hgb (13.0-17.5) gm/dL Hct (39.0-53.0) % Plt Count (150-450) k/uL Carbon Dioxide (22-30) mmol/L BUN (9-20) mg/dL Glucose (74-99) mg/dL POC Glucose (mg/dL) 129 H 160 H 160 H (75-99) mg/dL Calcium (8.4-10.2) mg/dL 08/11/18 08/11/18 08/11/18 Range/Units 06:52 06:52 06:56 RBC 3.68 L (4.30-5.90) m/uL Hgb 11.7 L (13.0-17.5) gm/dL Hct 36.5 L (39.0-53.0) % Plt Count 138 L (150-450) k/uL Carbon Dioxide 32 H (22-30) mmol/L BUN 43 H (9-20) mg/dL Glucose 189 H (74-99) mg/dL POC Glucose (mg/dL) 230 H (75-99) mg/dL Calcium 8.0 L (8.4-10.2) mg/dL 08/11/18 Range/Units 11:36 RBC (4.30-5.90) m/uL Hgb (13.0-17.5) gm/dL Hct (39.0-53.0) % Plt Count (150-450) k/uL Carbon Dioxide (22-30) mmol/L BUN (9-20) mg/dL Glucose (74-99) mg/dL POC Glucose (mg/dL) 214 H (75-99) mg/dL Calcium (8.4-10.2) mg/dL Microbiology - Last 24 Hours (Table) 08/10/18 15:40 Gram Stain - Preliminary Bronchial Washings - Random Bronchial Washings Culture - Preliminary Assessment and Plan Assessment: 1. Acute exacerbation COPD - complicated by purulent tracheobronchitis without katharina pneumonia. Recently hospitalized for COPD, discharged home yesterday, and readmitted for acute episode of respiratory distress, repeat chest x-rays in the emergency department were negative for any focal pneumonia or congestive heart failure 2. Marked orotracheal candidiasis; patient started on oral Diflucan 100 mg by mouth daily post bronchoscopy 3. Hypertension; remains stable on home dose of Cardizem 120 mg by mouth daily; Lasix 40 mg IV every 12 hours 4. Hyperlipidemia; Lipitor 20 mg by mouth daily at bedtime 5. Benign prostatic hypertrophy; stable on Proscar 5 mg by mouth daily at bedtime and Flomax 0.5 mg by mouth daily at bedtime 6. Hypothyroidism; levothyroxine 175 MCG daily 7. Chronic back pain syndrome with pain pump insertion 8. Restless leg syndrome; Requip 0.5 mg by mouth daily at bedtime 9. DVT prophylaxis; SCDs CODE STATUS; full code Time with Patient: Greater than 30
[2018-08-11 17:13] LABS: Glucose,Whole Blood 152 mg/dL (75-99)
[2018-08-11] MEDS: HYDROcodone/APAP 10-325MG 1 EACH TAB PO PRN (20:13)
[2018-08-11] MEDS: LORazepam 0.5 MG TAB PO PRN (20:13)
[2018-08-11 20:50] LABS: Glucose,Whole Blood 249 mg/dL (75-99)
[2018-08-11] MEDS: DOXEPIN 25 MG CAP PO SCH (21:27)
[2018-08-11] MEDS: MELATONIN 5 MG TABLET PO SCH (21:27)
[2018-08-11] MEDS: ATORVASTATIN 20 MG TAB PO SCH (21:27)
[2018-08-11] MEDS: DONEPEZIL 10 MG TAB PO SCH (21:28)
[2018-08-11] MEDS: SENNOSIDES 8.6 MG TAB PO SCH (21:28)
[2018-08-11] MEDS: FINASTERIDE 5 MG TAB PO SCH (21:28)
[2018-08-11] MEDS: TAMSULOSIN 0.4 MG CAP.ER.24H PO SCH (21:28)
[2018-08-11] MEDS: FUROSEMIDE 10 MG/ML 2 ML VIAL IV SCH (21:28)
[2018-08-11] MEDS: PANTOPRAZOLE 40 MG TABLET PO SCH (21:28)
[2018-08-11] MEDS: IPRATROPIUM-ALBUTEROL 3 ML NEB INHALATION PRN (23:19)
[2018-08-12] MEDS: IPRATROPIUM-ALBUTEROL 3 ML NEB INHALATION PRN ×2 (03:27→23:08)
[2018-08-12] MEDS: LEVOTHYROXINE 50 MCG TAB PO SCH (06:01)
[2018-08-12] MEDS: methylPREDNISolone SOD SUCCI 125 MG/2 ML VIAL IV SCH ×2 (06:01→12:22)
[2018-08-12 07:03] LABS: Glucose,Whole Blood 202 mg/dL (75-99)
[2018-08-12 07:27] LABS: Basophils % (A) 0 %; Eosinophils % (A) 0 %; HCT 35.8 % (39.0-53.0); HGB 11.4 gm/dL (13.0-17.5); Lymphocytes # (A) 0.3 k/uL (1.0-4.8); Lymphocytes % (A) 3 %; MCH 31.5 pg (25.0-35.0); MCHC 31.9 g/dL (31.0-37.0); MCV 98.5 fL (80.0-100.0); Mean Platelet Volume 6.8; Monocytes # (A) 0.3 k/uL (0-1.0); Monocytes % (A) 3 %; Neutrophils # (A) 9.5 k/uL (1.3-7.7); Neutrophils % (A) 93 %; Platelet Count 120 k/uL (150-450); RBC 3.63 m/uL (4.30-5.90); RDW 14.6 % (11.5-15.5); WBC 10.2 k/uL (3.8-10.6)
[2018-08-12 07:34] LABS: Potassium 4.7 mmol/L (3.5-5.1)
[2018-08-12] MEDS: FORMOTEROL FUMARATE 20 MCG/2 ML NEBU INHALATION SCH ×2 (07:52→19:55)
[2018-08-12] MEDS: BUDESONIDE 1 MG/2 ML NEBU INHALATION SCH ×2 (07:52→19:47)
[2018-08-12] MEDS: IPRATROPIUM-ALBUTEROL 3 ML NEB INHALATION SCH ×4 (07:52→19:46)
[2018-08-12] MEDS: FLUCONAZOLE 100 MG TAB PO SCH (08:05)
[2018-08-12] MEDS: GABAPENTIN 400 MG CAP PO SCH ×3 (08:05→20:21)
[2018-08-12] MEDS: guaiFENesin 600 MG TABLET.ER PO SCH ×2 (08:05→20:19)
[2018-08-12] MEDS: THEOPHYLLINE 24 HOUR 200 MG CAP.ER.24H PO SCH (08:05)
[2018-08-12] MEDS: MULTIVITAMINS, THERA 1 EACH TAB PO SCH (08:06)
[2018-08-12] MEDS: DILTIAZEM CD 120 MG CAP.ER.24H PO SCH (08:06)
[2018-08-12] MEDS: INSULIN ASPART (NovoLOG) 100 UNIT/ML VIAL SQ SCH ×4 (08:06→20:22)
[2018-08-12] MEDS: ISOSORBIDE MONONITRATE ER 60 MG TAB.ER.24H PO SCH (08:06)
[2018-08-12] MEDS: FUROSEMIDE 10 MG/ML 2 ML VIAL IV SCH ×2 (08:07→20:26)
[2018-08-12] MEDS: HYDROcodone/APAP 10-325MG 1 EACH TAB PO PRN (08:56)
[2018-08-12] MEDS: LORazepam 0.5 MG TAB PO PRN ×2 (08:57→17:55)
[2018-08-12 11:52] LABS: Glucose,Whole Blood 233 mg/dL (75-99)
[2018-08-12] MEDS: VANCOMYCIN 1,750 MG in SODIUM CHLORIDE 0.9% 500 ML 500 ML IVPB SCH (13:49)
--- NOTE | 2018-08-12 15:26 | P.PN ---
Subjective Progress Note Date: 08/12/18 On today's evaluation, clinically the patient is feeling slightly better. I am finally glad to report the patient is having some improvement in terms of his COPD exacerbation. He is post bronchoscopy. Cultures of been all negative the patient was found to have Justine albicans extensively the both in his upper and lower airways. He is currently on Diflucan. The amount of sputum production is improved considerably since his last bronchoscopy and the patient is afebrile. His voice is improved. He is less short of breath. He remains on bronchodilators. He remains on IV Solu-Medrol. He remains on oxygen 3 L per minute nasal cannula. He is complaining of some skeletal abdominal pain special ly when he coughs. Having increased edema lower extremities bilaterally and for that reason the patient is currently on IV Lasix and is responding very nicely. He is in a negative fluid balance for now. Objective - Vital Signs Vital signs: Vital Signs Temp 98.9 F 08/12/18 11:51 Pulse 88 08/12/18 14:57 Resp 16 08/12/18 14:57 BP 115/66 08/12/18 11:51 Pulse Ox 97 08/12/18 11:51 Intake & Output 08/11/18 08/12/18 08/12/18 18:59 06:59 18:59 Intake Total 426 955 6451 Output Total 600 800 Balance -500 -210 3300 Weight 100.5 kg Intake: IV 100 50 cefTAZidime 1 gm In 100 50 Sodium Chloride 0.9% 50 ml @ 100 mls/hr IVPB Q12HR [facility] Rx#:[id number] Intake, IV Titration 500 Amount Vancomycin 1,750 mg In 500 Sodium Chloride 0.9% 500 ml 500 ml @ 167 mls/hr IVPB Q24H [facility] Rx#: [id number] Oral 590 2750 Output: Urine 600 800 Other: Voiding Method Urinal Urinal Toilet Bedside Commode Urinal # Voids 2 2 5 - Exam GENERAL EXAM: Alert, pleasant, obese 83-year-old white male, currently on 3 L of oxygen, he has [id number] conversational dyspnea, HEAD: Normocephalic/atraumatic. EYES: Normal reaction of pupils, equal size. Conjunctiva pink, sclera white. NOSE: Clear with pink turbinates. THROAT: No erythema or exudates. NECK: No masses, no JVD, no thyroid enlargement, no adenopathy. CHEST: No chest wall deformity. Symmetrical expansion. LUNGS: Equal air entry with diffuse wheezing and audible congestion CVS: Regular rate and rhythm, normal S1 and S2, no gallops, no murmurs, no rubs ABDOMEN: Soft, nontender. No hepatosplenomegaly, normal bowel sounds, no guarding or rigidity. EXTREMITIES: No clubbing, no edema, no cyanosis, 2+ pulses and upper and lower extremities. MUSCULOSKELETAL: Muscle strength and tone normal. SPINE: No scoliosis or deformity SKIN: No rashes CENTRAL NERVOUS SYSTEM: Alert and oriented -3. No focal deficits, tone is normal in all 4 extremities. PSYCHIATRIC: Alert and oriented -3. Appropriate affect. Intact judgment and insight. - Labs CBC & Chem 7: 08/12/18 06:13 08/12/18 06:13 Labs: Abnormal Lab Results - Last 24 Hours (Table) 08/11/18 08/11/18 08/12/18 Range/Units 17:10 20:49 06:13 RBC (4.30-5.90) m/uL Hgb (13.0-17.5) gm/dL Hct (39.0-53.0) % Plt Count (150-450) k/uL Neutrophils # (1.3-7.7) k/uL Lymphocytes # (1.0-4.8) k/uL Carbon Dioxide 32 H (22-30) mmol/L BUN 41 H (9-20) mg/dL Glucose 197 H (74-99) mg/dL POC Glucose (mg/dL) 152 H 249 H (75-99) mg/dL Calcium 8.0 L (8.4-10.2) mg/dL 08/12/18 08/12/18 08/12/18 Range/Units 06:13 07:01 11:50 RBC 3.63 L (4.30-5.90) m/uL Hgb 11.4 L (13.0-17.5) gm/dL Hct 35.8 L (39.0-53.0) % Plt Count 120 L (150-450) k/uL Neutrophils # 9.5 H (1.3-7.7) k/uL Lymphocytes # 0.3 L (1.0-4.8) k/uL Carbon Dioxide (22-30) mmol/L BUN (9-20) mg/dL Glucose (74-99) mg/dL POC Glucose (mg/dL) 202 H 233 H (75-99) mg/dL Calcium (8.4-10.2) mg/dL Microbiology - Last 24 Hours (Table) 08/10/18 15:40 Gram Stain - Final Bronchial Washings - Random Bronchial Washings Culture - Final Justine albicans Assessment and Plan Plan: #1. Acute exacerbation of chronic obstructive pulmonary disease complicated by purulent tracheobronchitis without katharina pneumonia. The patient had a prolonged hospitalization. He underwent a bronchoscopy few days ago. He is showing candidal growth. He is currently on Diflucan is also on Fortaz. He is improving slowly. He has a obvious component of check of bronchomalacia in add ition to COPD. #2. Previous history of heavy tobacco use #3. History of GERD/reflux #4. Hypertension, hyperlipidemia #5. Previous history of pneumonia #6. History of benign prostatic hypertrophy #7. Rheumatoid arthritis #8. Chronic back pain syndrome with pain pump insertion #9. History of diverticulosis #10. Migraine headache #11. Restless leg syndrome #12 tracheal bronchomalacia #13 obesity with a BMI of 34.7 #14 lower extremity edema. Plan Continue IV Lasix. Continue bronchodilators. Continue systemic steroids. Continue Diflucan. Continue Fortaz. Provide incentive spirometer. We'll continue to follow. Clinically improving. There is a slow but steady improv ement.
[2018-08-12 17:24] LABS: Glucose,Whole Blood 196 mg/dL (75-99)
[2018-08-12 20:05] LABS: Glucose,Whole Blood >600 mg/dL (75-99)
[2018-08-12 20:06] LABS: Glucose,Whole Blood 238 mg/dL (75-99)
[2018-08-12 20:08] LABS: Glucose,Whole Blood 254 mg/dL (75-99)
[2018-08-12] MEDS: SENNOSIDES 8.6 MG TAB PO SCH (20:19)
[2018-08-12] MEDS: ATORVASTATIN 20 MG TAB PO SCH (20:20)
[2018-08-12] MEDS: PANTOPRAZOLE 40 MG TABLET PO SCH (20:20)
[2018-08-12] MEDS: TAMSULOSIN 0.4 MG CAP.ER.24H PO SCH (20:20)
[2018-08-12] MEDS: DOXEPIN 25 MG CAP PO SCH (20:23)
[2018-08-12] MEDS: MELATONIN 5 MG TABLET PO SCH (20:25)
[2018-08-12] MEDS: FINASTERIDE 5 MG TAB PO SCH (20:25)
[2018-08-12] MEDS: DONEPEZIL 10 MG TAB PO SCH (20:25)
--- NOTE | 2018-08-12 20:35 | PN ---
PROGRESS NOTE DATE OF SERVICE: 08/12/18. PRESENTING COMPLAINT: Short of breath, cough. INTERVAL HISTORY: Patient admitted with severe COPD exacerbation and tracheobronchitis. The patient did undergo bronchoscopy, lot of Justine infection was found. Patient on Diflucan. Still gets congested, short of breath, though better than before. Eating well. Had a bowel movement yesterday. REVIEW OF SYSTEMS: Done for constitutional, cardiovascular, GI, pulmonary; relevant findings as above. CURRENT MEDICATIONS: Reviewed that include DuoNeb, IV ceftazidime, Diflucan, IV Solu-Medrol. PHYSICAL EXAMINATION: Temperature 98.9, pulse 80, respiration 16, blood pressure 115/66, pulse ox 97% on room air. GENERAL APPEARANCE: Lying in bed, a bit tired. EYES: Pupils equal. Conjunctivae normal. NECK: JVD unable to assess. Mass not palpable. RESPIRATORY: Effort increased. LUNGS: Decreased breath sounds. Prolonged expiration. Some wheezing. CARDIOVASCULAR: First and second sounds are normal. Minimal edema. ABDOMEN: Soft, nontender. Liver and spleen not palpable. Pain pump in place. PSYCHIATRY: Alert and oriented x3. Mood and affect normal. INVESTIGATIONS: White count 10.2, hemoglobin 11.4, potassium 4.7, BUN 41, creatinine 1.13. Accu-Cheks are noted. Bronchial wash is growing Justine albicans. ASSESSMENT: 1. Acute chronic obstructive pulmonary disease exacerbation from acute tracheobronchitis, slow to respond. 2. Justine albicans in the bronchial washings with significant fungal infection. 3. Status post bronchoscopy with lavage. 4. Gastroesophageal reflux disease. 5. Essential hypertension. 6. Hyperlipidemia. 7. Benign prostatic hypertrophy. 8. Chronic rheumatoid arthritis. 9. Hypothyroid. 10.Chronic hypoxic respiratory failure from underlying chronic obstructive pulmonary disease. 11.Acute hypoxic respiratory failure, present on admission. 12.Chronic colonic diverticulosis. 13.Mild cognitive impairment from underlying late onset Alzheimer's dementia. 14.Restless legs syndrome. 15.Chronic gait dysfunction, uses a cane and/or a walker. 16.Chronic pain syndrome, cause undetermined. Uses intrathecal pain pump. Being followed by Dr. Hilliard. PLAN: Continue current medication and treatment plan. Care was discussed with Dr. Pepe. Looking for the patient to be here for at least about 48 hours. Will start cutting back the steroids. MMODL / IJN: [id number] /
[2018-08-13] MEDS: methylPREDNISolone SOD SUCCI 40 MG/ML 1 ML VIAL IV SCH ×3 (00:02→18:00)
[2018-08-13] MEDS: IPRATROPIUM-ALBUTEROL 3 ML NEB INHALATION PRN ×2 (03:28→23:44)
[2018-08-13] MEDS: LEVOTHYROXINE 50 MCG TAB PO SCH ×2 (06:01→23:45)
[2018-08-13 06:55] LABS: Glucose,Whole Blood 208 mg/dL (75-99)
[2018-08-13 07:20] LABS: Basophils % (A) 0 %; Eosinophils % (A) 0 %; HCT 35.9 % (39.0-53.0); HGB 11.6 gm/dL (13.0-17.5); Lymphocytes # (A) 0.3 k/uL (1.0-4.8); Lymphocytes % (A) 2 %; MCH 31.9 pg (25.0-35.0); MCHC 32.2 g/dL (31.0-37.0); Macrocytosis Slight; Mean Platelet Volume 7.5; Monocytes # (A) 0.3 k/uL (0-1.0); Monocytes % (A) 2 %; Neutrophils # (A) 10.6 k/uL (1.3-7.7); Neutrophils % (A) 95 %; Platelet Count 111 k/uL (150-450); RBC 3.62 m/uL (4.30-5.90); RDW 15.2 % (11.5-15.5); WBC 11.2 k/uL (3.8-10.6)
[2018-08-13 07:31] LABS: Calcium 7.9 mg/dL (8.4-10.2); Potassium 4.7 mmol/L (3.5-5.1)
[2018-08-13] MEDS: FORMOTEROL FUMARATE 20 MCG/2 ML NEBU INHALATION SCH ×2 (08:03→20:05)
[2018-08-13] MEDS: BUDESONIDE 1 MG/2 ML NEBU INHALATION SCH ×2 (08:03→20:05)
[2018-08-13] MEDS: IPRATROPIUM-ALBUTEROL 3 ML NEB INHALATION SCH ×4 (08:03→20:05)
[2018-08-13] MEDS: INSULIN ASPART (NovoLOG) 100 UNIT/ML VIAL SQ SCH ×4 (08:34→21:37)
[2018-08-13] MEDS: THEOPHYLLINE 24 HOUR 200 MG CAP.ER.24H PO SCH (08:35)
[2018-08-13] MEDS: MULTIVITAMINS, THERA 1 EACH TAB PO SCH (08:35)
[2018-08-13] MEDS: LORazepam 0.5 MG TAB PO PRN (08:35)
[2018-08-13] MEDS: ISOSORBIDE MONONITRATE ER 60 MG TAB.ER.24H PO SCH (08:36)
[2018-08-13] MEDS: DILTIAZEM CD 120 MG CAP.ER.24H PO SCH (08:40)
[2018-08-13] MEDS: guaiFENesin 600 MG TABLET.ER PO SCH ×2 (08:41→22:14)
[2018-08-13] MEDS: GABAPENTIN 400 MG CAP PO SCH ×3 (08:41→22:15)
[2018-08-13] MEDS: FUROSEMIDE 10 MG/ML 2 ML VIAL IV SCH ×2 (09:11→22:10)
[2018-08-13] MEDS: HYDROcodone/APAP 10-325MG 1 EACH TAB PO PRN (09:43)
[2018-08-13] MEDS: FLUCONAZOLE 100 MG TAB PO SCH (09:44)
[2018-08-13] MEDS ORDERED: PROMETHAZ-COD 6.25-10 MG/5 ML 5 ML CUP PO PRN (10:30)
[2018-08-13 11:11] LABS: Glucose,Whole Blood 184 mg/dL (75-99)
[2018-08-13] MEDS: BARIUM SULFATE 450 ML ORAL.SUSP BOTTLE PO PRN ×2 (11:27→14:45)
[2018-08-13] MEDS ORDERED: VANCOMYCIN TROUGH DUE 1 EACH MISC MISCELLANE ONE (13:00)
--- NOTE | 2018-08-13 13:49 | P.PN ---
Subjective Progress Note Date: 08/13/18 On 08/13/2018, the patient is still complaining of pain in his abdominal area mainly in the lower abdomen where the pain pump is present. Note that the patient's pain was thought to be related to skeletal pain related to coughing. Nevertheless, based on the ongoing symptoms on worsening in pain, I think it's worthwhile to perform a CAT scan of the abdomen for further investigation. History of being treated for COPD exacerbation. He has severe tracheal bronchomalacia. He had also developed extensive candidiasis both in upper and lower airways for which she was started on Diflucan. Vancomycin will be discontinued knowing that the bronchioloalveolar lavage did not show any MRSA growth. He remains on IV Fortaz. He has been diuresed IV Lasix. Is producing a urine output. BUN is at 38 with a creatinine of 1.07. No other significant events overnight. No altered mentation. Objective - Vital Signs Vital signs: Vital Signs Temp 98.1 F 08/13/18 11:51 Pulse 84 08/13/18 11:59 Resp 16 08/13/18 11:51 BP 120/78 08/13/18 11:51 Pulse Ox 93 L 08/13/18 11:51 Intake & Output 08/12/18 08/13/18 08/13/18 18:59 06:59 18:59 Intake Total 3300 590 1200 Balance 3300 590 1200 Weight 100.7 kg Intake: IV 50 50 cefTAZidime 1 gm In 50 50 Sodium Chloride 0.9% 50 ml @ 100 mls/hr IVPB Q12HR JUDY Rx#:[id number] Intake, IV Titration 500 Amount Vancomycin 1,750 mg In 500 Sodium Chloride 0.9% 500 ml 500 ml @ 167 mls/hr IVPB Q24H JUDY Rx#: [id number] Oral 2750 590 1150 Other: Voiding Method Toilet Toilet Urinal Bedside Commode Bedside Commode Urinal Urinal # Voids 5 3 4 - Exam GENERAL EXAM: Alert, pleasant, obese 83-year-old white male, currently on 3 L of oxygen, he has gauy-sm-[id number] conversational dyspnea, HEAD: Normocephalic/atraumatic. EYES: Normal reaction of pupils, equal size. Conjunctiva pink, sclera white. NOSE: Clear with pink turbinates. THROAT: No erythema or exudates. NECK: No masses, no JVD, no thyroid enlargement, no adenopathy. CHEST: No chest wall deformity. Symmetrical expansion. LUNGS: Equal air entry with diffuse wheezing and audible congestion CVS: Regular rate and rhythm, normal S1 and S2, no gallops, no murmurs, no rubs ABDOMEN: Soft, nontender. No hepatosplenomegaly, normal bowel sounds, no guarding or rigidity. EXTREMITIES: No clubbing, no edema, no cyanosis, 2+ pulses and upper and lower extremities. MUSCULOSKELETAL: Muscle strength and tone normal. SPINE: No scoliosis or deformity SKIN: No rashes CENTRAL NERVOUS SYSTEM: Alert and oriented -3. No focal deficits, tone is norm al in all 4 extremities. PSYCHIATRIC: Alert and oriented -3. Appropriate affect. Intact judgment and insight. - Labs CBC & Chem 7: 08/13/18 06:16 08/13/18 06:16 Labs: Abnormal Lab Results - Last 24 Hours (Table) 08/12/18 08/12/18 08/12/18 Range/Units 17:23 20:04 20:06 WBC (3.8-10.6) k/uL RBC (4.30-5.90) m/uL Hgb (13.0-17.5) gm/dL Hct (39.0-53.0) % Plt Count (150-450) k/uL Neutrophils # (1.3-7.7) k/uL Lymphocytes # (1.0-4.8) k/uL Carbon Dioxide (22-30) mmol/L BUN (9-20) mg/dL Glucose (74-99) mg/dL POC Glucose (mg/dL) 196 H >600 H 238 H (75-99) mg/dL Calcium (8.4-10.2) mg/dL 08/12/18 08/13/18 08/13/18 Range/Units 20:07 06:16 06:16 WBC 11.2 H (3.8-10.6) k/uL RBC 3.62 L (4.30-5.90) m/uL Hgb 11.6 L (13.0-17.5) gm/dL Hct 35.9 L (39.0-53.0) % Plt Count 111 L (150-450) k/uL Neutrophils # 10.6 H (1.3-7.7) k/uL Lymphocytes # 0.3 L (1.0-4.8) k/uL Carbon Dioxide 31 H (22-30) mmol/L BUN 38 H (9-20) mg/dL Glucose 217 H (74-99) mg/dL POC Glucose (mg/dL) 254 H (75-99) mg/dL Calcium 7.9 L (8.4-10.2) mg/dL 08/13/18 08/13/18 Range/Units 06:54 11:10 WBC (3.8-10.6) k/uL RBC (4.30-5.90) m/uL Hgb (13.0-17.5) gm/dL Hct (39.0-53.0) % Plt Count (150-450) k/uL Neutrophils # (1.3-7.7) k/uL Lymphocytes # (1.0-4.8) k/uL Carbon Dioxide (22-30) mmol/L BUN (9-20) mg/dL Glucose (74-99) mg/dL POC Glucose (mg/dL) 208 H 184 H (75-99) mg/dL Calcium (8.4-10.2) mg/dL Assessment and Plan Plan: #1. Acute exacerbation of chronic obstructive pulmonary disease complicated by purulent tracheobronchitis without katharina pneumonia. The patient had a prolonged hospitalization. He underwent a bronchoscopy few days ago. He is showing candidal growth. He is currently on Diflucan is also on Fortaz. He is improving slowly. He has a obvious component of check of bronchomalacia in addition to COPD. #2. Abdominal pain, likely secondary to coughing. The pain is at the site of his pain pump and there is some pain also in his groin area. We'll proceed with a CAT scan of the abdomen. #3. History of GERD/reflux #4. Hypertension, hyperlipidemia #5. Previous history of pneumonia #6. History of benign prostatic hypertrophy #7. Rheumatoid arthritis #8. Chronic back pain syndrome with pain pump insertion #9. History of diverticulosis #10. Migraine headache #11. Restless leg syndrome #12 tracheal bronchomalacia #13 obesity with a BMI of 34.7 #14 lower extremity edema. #15, smoker Plan Continue IV Lasix. Continue bronchodilators. Continue systemic steroids. Continue Diflucan. Continue Fortaz. His continue the vancomycin. Proceed with a CAT scan of the abdomen and pelvis with oral contrast to characterize the pain and make sure there is no other complications other than skeletal pain related to coughing. The patient has diverticulosis and the patient is a pain pump within the same area. Provide incentive spirometer.
--- NOTE | 2018-08-13 16:10 | CT ---
EXAMINATION TYPE: CT abdomen pelvis wo con DATE OF EXAM: 08/13/2018 COMPARISON: None HISTORY: Abdominal pain CT DLP: 1680 mGycm Automated exposure control for dose reduction was used. TECHNIQUE: Helical acquisition of images was performed from the lung bases through the pelvis. FINDINGS: There is mild patchy atelectasis at the lung bases. Heart size is normal. There is no pericardial eff usion. Stomach appears normal. Spleen appears normal. There is no pancreatic mass. Liver shows no foc al defect. Bile ducts are not dilated. Gallbladder appears normal. There is no adrenal mass. Kidneys show normal size and contour. There is no retroperitoneal adenopath y.. There is no hydronephrosis. Implanted device is noted on the left mid abdomen subcutaneous tissue s. There are numerous diverticula in the descending colon and sigmoid colon. The bladder distends smo othly. There is no inguinal hernia. There is no free fluid in the pelvis. There is no pelvic mass. Th ere is subcutaneous edema around the abdomen. There is mild mesenteric edema involving small bowel lo ops in the left mid abdomen. There is localized free air seen around the small bowel mesentery in the mid abdomen and towards the left side. I see no evidence of a bowel obstruction. There is no ascites . There is minimal fat stranding in the left paracolic gutter. I see no bony destructive process. Lumbar spine is intact. Appendix is not definitely seen. There is no sign of appendicitis. IMPRESSION: There is some localized free air in the small bowel mesentery with some mild mesenteric edema. This i s most consistent with mid small bowel perforation. SUBCUTANEOUS EDEMA. MODERATE COLONIC DIVERTICULOSIS WITHOUT DIVERTICULITIS DEFINITELY PRESENT. PATCHY ATELECTASIS AT THE LUNG BASES. This exam was discussed with the patient's nurse on the floor the Alysia Marshall at 4:10 PM.
[2018-08-13 17:05] LABS: Glucose,Whole Blood 160 mg/dL (75-99)
[2018-08-13] MEDS: PIPERACILLIN-TAZOBACTAM 3.375 GM in SODIUM CHLORIDE 0.9% 100 ML IVPB SCH ×2 (17:10→23:50)
[2018-08-13 20:15] LABS: Glucose,Whole Blood 141 mg/dL (75-99)
[2018-08-13] MEDS: FINASTERIDE 5 MG TAB PO SCH (22:14)
[2018-08-13] MEDS: DONEPEZIL 10 MG TAB PO SCH (22:14)
[2018-08-13] MEDS: ATORVASTATIN 20 MG TAB PO SCH (22:14)
[2018-08-13] MEDS: DOXEPIN 25 MG CAP PO SCH (22:14)
[2018-08-13] MEDS: TAMSULOSIN 0.4 MG CAP.ER.24H PO SCH (22:15)
[2018-08-13] MEDS: SENNOSIDES 8.6 MG TAB PO SCH (22:15)
[2018-08-13] MEDS: MELATONIN 5 MG TABLET PO SCH (22:15)
[2018-08-13] MEDS: PANTOPRAZOLE 40 MG TABLET PO SCH (22:15)
--- NOTE | 2018-08-13 23:32 | PN ---
PROGRESS NOTE DATE OF SERVICE: August 13, 2018. PRESENTING COMPLAINT: Short of breath, cough, abdominal pain. INTERVAL HISTORY: Patient admitted with severe COPD exacerbation, tracheobronchitis, status post bronchoscopy, found to have significant Justine infection. The patient had complained of abdominal pain and earlier Dr. Pepe ordered a CT scan of the abdomen that did come back showing some free air with concern for perforation. Dr. Linton was consulted was consulted for the same. The patient was made n.p.o. except for medications. REVIEW OF SYSTEMS: Done for constitutional, cardiovascular, GI, pulmonary and relevant findings as above. CURRENT MEDICATIONS: Reviewed that include IV Zosyn, Diflucan, IV Lasix. PHYSICAL EXAMINATION: VITAL SIGNS: Temperature 98.1, pulse 97, respirations 16, blood pressure 120/78, pulse ox 93 percent on nasal cannula. GENERAL APPEARANCE: Sitting at the edge of bed. EYES: Pupils equal. Conjunctivae normal. NECK: JVD unable to assess. Mass not palpable. RESPIRATORY: Effort increased. LUNGS: Decreased breath sounds. Prolonged expiration. CARDIOVASCULAR: First and second sounds normal. Minimal edema. ABDOMEN: Mild tenderness. No guarding or rigidity. Liver and spleen not palpable. Pain pump in place. PSYCHIATRY: Alert and orient x3. Mood and affect normal. INVESTIGATIONS: White count 11.2, hemoglobin 11.6, potassium 4.7. BUN 38, creatinine 1.07. CT scan of the abdomen results as above. ASSESSMENT: 1. Acute chronic obstructive pulmonary disease exacerbation from acute tracheobronchitis. 2. Justine albicans in the bronchial washings. 3. Status post bronchoscopy and lavage. 4. Gastroesophageal reflux disease. 5. Essential hypertension. 6. Hyperlipidemia. 7. Benign prostatic hypertrophy. 8. Chronic rheumatoid arthritis. 9. Hypothyroid. 10.Chronic hypoxic respiratory failure from underlying chronic obstructive pulmonary disease. 11.Acute hypoxic respiratory failure, present on admission. 12.Chronic diverticulosis. 13.Mild cognitive impairment from underlying late onset Alzheimer's dementia. 14.Restless legs syndrome. 15.Chronic gait dysfunction uses a cane and a walker. 16.Chronic pain syndrome, cause undetermined. Use intrathecal pain pump being followed by Dr. Hilliard. 17.Abdominal pain with CT scan showing some amount of free air. PLAN: Patient will be made n.p.o. except for medications. Dr. Linton was consulted this afternoon. Await input from her. Other medication and treatment plan is to continue. MMODL / IJN: [id number] /
[2018-08-14] MEDS: IPRATROPIUM-ALBUTEROL 3 ML NEB INHALATION PRN (04:11)
[2018-08-14 06:57] LABS: Glucose,Whole Blood 94 mg/dL (75-99)
[2018-08-14] MEDS: IPRATROPIUM-ALBUTEROL 3 ML NEB INHALATION SCH ×4 (07:36→19:29)
[2018-08-14] MEDS: BUDESONIDE 1 MG/2 ML NEBU INHALATION SCH ×2 (07:36→19:29)
[2018-08-14] MEDS: FORMOTEROL FUMARATE 20 MCG/2 ML NEBU INHALATION SCH ×2 (07:36→19:29)
[2018-08-14 08:07] LABS: Basophils % (A) 0 %; Eosinophils % (A) 0 %; Lymphocytes # (A) 0.7 k/uL (1.0-4.8); Lymphocytes % (A) 7 %; MCH 31.1 pg (25.0-35.0); MCHC 31.5 g/dL (31.0-37.0); MCV 98.6 fL (80.0-100.0); Monocytes # (A) 0.3 k/uL (0-1.0); Monocytes % (A) 3 %; Neutrophils # (A) 8.3 k/uL (1.3-7.7); Neutrophils % (A) 89 %; Platelet Count 110 k/uL (150-450); RBC 3.85 m/uL (4.30-5.90); RDW 14.8 % (11.5-15.5); WBC 9.4 k/uL (3.8-10.6)
[2018-08-14 08:22] LABS: Calcium 8.1 mg/dL (8.4-10.2); Potassium 4.2 mmol/L (3.5-5.1)
[2018-08-14] MEDS: INSULIN ASPART (NovoLOG) 100 UNIT/ML VIAL SQ SCH ×4 (08:47→21:41)
[2018-08-14 11:07] LABS: Glucose,Whole Blood 81 mg/dL (75-99)
[2018-08-14] MEDS: HYDROcodone/APAP 10-325MG 1 EACH TAB PO PRN (11:39)
[2018-08-14] MEDS: GABAPENTIN 400 MG CAP PO SCH ×3 (11:40→21:40)
[2018-08-14] MEDS: LORazepam 0.5 MG TAB PO PRN (11:40)
[2018-08-14] MEDS: DILTIAZEM CD 120 MG CAP.ER.24H PO SCH (11:41)
[2018-08-14] MEDS: ISOSORBIDE MONONITRATE ER 60 MG TAB.ER.24H PO SCH (11:41)
[2018-08-14] MEDS: PIPERACILLIN-TAZOBACTAM 3.375 GM in SODIUM CHLORIDE 0.9% 100 ML IVPB SCH ×3 (11:41→23:09)
[2018-08-14] MEDS: FLUCONAZOLE 100 MG TAB PO SCH (11:42)
[2018-08-14] MEDS: THEOPHYLLINE 24 HOUR 200 MG CAP.ER.24H PO SCH (11:42)
[2018-08-14] MEDS: FUROSEMIDE 10 MG/ML 2 ML VIAL IV SCH ×2 (11:42→22:56)
[2018-08-14] MEDS: MULTIVITAMINS, THERA 1 EACH TAB PO SCH (11:43)
[2018-08-14] MEDS: guaiFENesin 600 MG TABLET.ER PO SCH ×2 (11:43→21:40)
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
--- NOTE | 2018-08-14 13:14 | P.PN ---
Subjective Progress Note Date: 08/14/18 Principal diagnosis: Acute respiratory distress, shortness of breath, acute on chronic hypoxic respiratory failure On 08/02/2018 patient seen in follow-up on medical surgical floor. He is awake and alert, oriented 3, he sitting up in bed, he states his breathing has not improved significantly, still quite bronchospastic, coughing, and congested. Vital signs remain stable, room air pulse ox is 92%, patient is afebrile. Blood culture showed no growth. Today's labs have been reviewed, showed sodium of 139, potassium is 4.6, chloride is 99, CO2 is 32, B1 is 29 creatinine was 1.26. Patient is being treated with a combination of antibiotics, nebulized bronchodilators, mucolytic's, and has received 2 doses of IV Lasix, and Solu- Medrol 60 mg every 6 hours. On 08/03/2016 patient seen in follow-up on medical surgical floor. He is awake and alert, he was able to get up and take a shower, shave today, still gets dyspneic with exertion, recovers well would rest, lung sounds are positive for only minimal wheezing, overall much less bronchospastic and congested since he came in, no fever no chills, today's lab work has been reviewed, BNP was done, electrolytes are within normal limits with the exception of CO2, which is chronically elevated. Renal profile stable, with BUN of 38, creatinine is 1.27. On 08/04/2018 patient was seen again in the intensive care unit, patient was discharged home yesterday, however 2 hours later he started experiencing acute shortness of breath, started hyperventilating, he states he was having trouble getting air in, she called EMS, in the when EMS arrived his pulse ox was only in the 80s, he was placed on a nonrebreather mask, was given breathing treatments, and was brought into the emergency department. Did experience some sharp chest discomfort that was associated with his shortness of breath, however he states it did not last very long. EKG in the emergency department showed sinus tachycardia with PACs, no acute ischemic changes noted. Chest x-ray without any focal infiltrates, and there was clearing of the mild atelectasis in the left lower lobe compared to previous exam. [place] lab work was reviewed, and the white blood cell, was 10.0, hemoglobin is 11.8, electrolytes and quite large profile were within normal limits, BUN is 42, creatinine is 1.49, troponins were negative 2, proBNP was within normal limits at 625. Patient was afebrile, was dynamically stable, he was hypoxemic, and was placed on BiPAP support overnight, with pressures of 12 and 6 and FiO2 of 36%, currently he is back on nasal ca nnula at 3 L. No running IVs, patient was started on IV steroids, empiric antibiotics, breathing treatments, and this morning he is breathing easier, although still wheezy and congested. On 07/29/2017 patient seen in follow-up in the intensive care unit, he is awaiting a bed for a general medical floor, he has been on OUTPATIENT, he remains on 3 L of oxygen, Pulse ox is 96%, he is afebrile, hemodynamically stable, did not require BiPAP support last night, he states he still quite dyspneic with any exertion, requiring periods of rest. He feels very weak. Vital signs are stable, no fever or chills. Continues on empiric antibiotics, Pulmicort and Perforomist, IV steroids. On 08/09/2018 patient seen in follow-up on medical surgical floor. Patient is very congested, very wheezy and dyspneic, current antibiotic coverage is no form of Fortaz and vancomycin. Sputum cultures so far shown no growth, patient is bringing up copious amounts of brown colored sputum. Today we gave the patient dose of IV Lasix, but on today's labs his renal profile has worsened, with BUN of 47, and creatinine 1.28, patient has a audible congestion, and wheezing. On 08/10/2018 patient is seen in follow-up on medical surgical floor. Patient has made very honest improvement if at all, despite being maximized on medical treatment, still quite dyspneic and wheezing, patient is afebrile, remains on supplemental oxygen at 3 L. Today's labs have been reviewed, showed white blood cell count of 12.1, hemoglobin of 12.1, sodium of 142, potassium is 5.7, chloride is 109, creatinine is 1.15. Antibiotic coverage in the form of Fortaz and vancomycin, patient underwent a bronchoscopy with BAL today with the removal of large amount of retained purulent secretions, and there has been significant candidiasis is noted as well. On 08/11/2018 patient seen in follow-up on medical surgical floor. He still dys pneic and ankle spastic, but a lot less congested. 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 Sputum and bronchial wash cultures are pending at this time, Gram stain showed moderate gram-positive cocci, few yeast and few gram-positive bacilli. he is on the abiotic coverage in the form of Fortaz, vancomycin, yesterday we added Diflucan for oral candidiasis, patient is on IV steroids, and nebulized bronchodilators. On 08/14/2018 patient is seen in follow-up on medical surgical floor. He sitting up on his bed, in no acute distress, does have left lower quadrant pain, but from breathing perspective patient seems to be improving, less bronchospastic and congested, lung sounds are positive for expiratory wheezes, particularly in the posterior left lower lobe, and scattered rhonchi. He underwent bronchoscopy last week would removal of a large amount of purulent secretions, and so far the brain wash cultures were positive for Justine albicans only. She is on 2 L of oxygen with a pulse ox of 96%, he is afebrile. Did not require BiPAP support, CT of abdomen and pelvis is obtained last night showing moderate colonic diverticulosis without diverticulitis and she atelectasis at the lung bases, and there is some localized free air in the small bowel mesentery with some mild mesenteric edema. This is most likely consistent with more mid small bowel perforation, as read by the radiologist. Surgery is following, patient is nothing by mouth, and at this time there is no plan for surgical intervention. Objective - Vital Signs Vital signs: Vital Signs Temp 98.8 F 08/14/18 12:10 Pulse 88 08/14/18 12:46 Resp 17 08/14/18 12:10 BP 127/82 08/14/18 12:10 Pulse Ox 96 08/14/18 12:10 Intake & Output 08/13/18 08/14/18 08/14/18 18:59 06:59 18:59 Intake Total 1200 460 Output Total 800 Balance 400 460 Weight 110 kg Intake: IV 50 360 Normal saline 360 cefTAZidime 1 gm In 50 Sodium Chloride 0.9% 50 ml @ 100 mls/hr IVPB Q12HR [facility] Rx#:[id number] Intake, IV Titration 100 Amount Piperacillin-Tazobactam 3 100 .375 gm In Sodium Chloride 0.9% 100 ml @ 25 mls/hr IVPB Q8HR [facility] Rx# :[id number] Oral 1150 Output: Urine 800 Other: Voiding Method Urinal Bedside Commode Urinal # Voids 4 4 # Bowel Movements 2 - Exam GENERAL EXAM: Alert, pleasant, obese 83-year-old white male, currently on 2 L of oxygen, he has [id number] conversational dyspnea, HEAD: Normocephalic/atraumatic. EYES: Normal reaction of pupils, equal size. Conjunctiva pink, sclera white. NOSE: Clear with pink turbinates. THROAT: No erythema or exudates. NECK: No masses, no JVD, no thyroid enlargement, no adenopathy. CHEST: No chest wall deformity. Symmetrical expansion. LUNGS: Equal air entry with diffuse wheezing scattered rhonchi, but patient has improved from previous exams in terms of wheezing and congestion. CVS: Regular rate and rhythm, normal S1 and S2, no gallops, no murmurs, no rubs ABDOMEN: Soft, with tenderness in left lower quadrant No hepatosplenomegaly, normal bowel sounds, no guarding or rigidity. EXTREMITIES: No clubbing, no edema, no cyanosis, 2+ pulses and upper and lower extremities. MUSCULOSKELETAL: Muscle strength and tone normal. SPINE: No scoliosis or deformity SKIN: No rashes CENTRAL NERVOUS SYSTEM: Alert and oriented -3. No focal deficits, tone is normal in all 4 extremities. PSYCHIATRIC: Alert and oriented -3. Appropriate affect. Intact judgment and insight. - Labs CBC & Chem 7: 08/14/18 06:42 08/14/18 06:42 Labs: Abnormal Lab Results - Last 24 Hours (Table) 08/13/18 08/13/18 08/14/18 Range/Units 17:03 20:14 06:42 RBC (4.30-5.90) m/uL Hgb (13.0-17.5) gm/dL Hct (39.0-53.0) % Plt Count (150-450) k/uL Neutrophils # (1.3-7.7) k/uL Lymphocytes # (1.0-4.8) k/uL Carbon Dioxide 39 H (22-30) mmol/L BUN 32 H (9-20) mg/dL POC Glucose (mg/dL) 160 H 141 H (75-99) mg/dL Calcium 8.1 L (8.4-10.2) mg/dL 08/14/18 Range/Units 06:42 RBC 3.85 L (4.30-5.90) m/uL Hgb 12.0 L (13.0-17.5) gm/dL Hct 38.0 L (39.0-53.0) % Plt Count 110 L (150-450) k/uL Neutrophils # 8.3 H (1.3-7.7) k/uL Lymphocytes # 0.7 L (1.0-4.8) k/uL Carbon Dioxide (22-30) mmol/L BUN (9-20) mg/dL POC Glucose (mg/dL) (75-99) mg/dL Calcium (8.4-10.2) mg/dL Assessment and Plan Plan: Assessment: #1. Acute exacerbation of chronic obstructive pulmonary disease complicated by purulent tracheobronchitis without katharina pneumonia. Recently hospitalized for COPD, discharged home yesterday, and readmitted for acute episode of respiratory distress, repeat chest x-rays in the emergency department were negative for any focal pneumonia or congestive heart failure #2. Previous history of heavy tobacco use #3. History of GERD/reflux #4. Hypertension, hyperlipidemia #5. Previous history of pneumonia #6. History of benign prostatic hypertrophy #7. Rheumatoid arthritis #8. Chronic back pain syndrome with pain pump insertion #9. History of diverticulosis #10. Migraine headache #11. Restless leg syndrome #12. Significant orotracheal candidiasis #13. Pneumoperitoneum, patient is complaining of left lower quadrant discomfort, and CT of abdomen and pelvis showed some localized free air in the small bowel mesentery with some mild mesenteric edema, subcutaneous edema, moderate colonic diverticulosis without diverticulitis Plan: Continue breathing treatments, continue the theophylline, we will decrease the IV Lasix to once daily, continue with antibiotic's, so for the bronchial wash cultures remain negative, continue the Diflucan. Patient remains nothing by mouth, surgery following in regards to pneumoperitoneum. Will await their further recommendations. I performed a history & physical examination of the patient and discussed their management with my nurse practitioner, Marta Herrera. I reviewed the nurse practitioner's note and agree with the documented findings and plan of care. Lung sounds are positive for diffuse wheezes and rhonchi The findings and the impression was discussed with the patient. I attest to the documentation by the nurse practitioner. Time with Patient: Less than 30
[2018-08-14] MEDS: SODIUM CHLORIDE 0.9% 1,000 ML IV SCH (16:23)
[2018-08-14 17:34] LABS: Glucose,Whole Blood 80 mg/dL (75-99)
--- NOTE | 2018-08-14 17:44 | P.PN ---
Progress Note - Text Progress Note Date: 08/14/18 Patient seen and evaluated. Overnight intervention included adjustment nothing by mouth strict including discontinuation of steroids. Patient has history of a pain pump on the left lower quadrant. Upon further discussion today, he reports abdominal pain has markedly improved. "I want to eat.". No fevers or chills. Leukocytosis resolved. "I do not want surgery." Patient is high risk for perioperative complications including prolonged ventilatory status with severity of COPD and previous pneumonia. As his leukocytosis is resolved and abdominal pain moderately improved, trial of liquids described. He is aware that any rebound or worsening of condition will require surgical in tervention for which he is extremely high risk for complications and morbidity
[2018-08-14 20:11] LABS: Glucose,Whole Blood 106 mg/dL (75-99)
--- NOTE | 2018-08-14 20:41 | PN ---
PROGRESS NOTE DATE OF SERVICE: 08/14/2018 PRESENTING COMPLAINT: Short of breath, cough, abdominal pain. INTERVAL HISTORY: Patient admitted with severe COPD exacerbation and tracheobronchitis, status post bronchoscopy. Patient was also found to have free air in the abdomen, probably a localized perforation. He was seen by Dr. Linton and initially was made made n.p.o. Steroids were stopped. Patient's daughter is at the bedside. REVIEW OF SYSTEMS: Done for constitutional, cardiovascular, GI, pulmonary; relevant findings as above. Some abdominal pain is present. CURRENT MEDICATIONS: Reviewed. They include DuoNeb and IV Zosyn. PHYSICAL EXAMINATION: Temperature 98.8, pulse 84, respiration 17, blood pressure 127/82, pulse ox 96% on 2 L. GENERAL APPEARANCE: Sitting on the edge. Not in distress. EYES: Pupils equal. Conjunctivae normal. NECK: JVD not raised. Mass not palpable. RESPIRATORY: Effort increased. LUNGS: Decreased breath sounds. Prolonged expiration. CARDIOVASCULAR: First and second sounds normal. Minimal edema. ABDOMEN: Left-sided tenderness. No guarding or rigidity. Pain pump in place. Liver and spleen not palpable. PSYCHIATRY: Alert and oriented x3. Mood and affect normal. INVESTIGATIONS: White count 9.4, hemoglobin 12, potassium 4.2, BUN 32, creatinine 1.14. Accu-Cheks are noted. ASSESSMENT: 1. Acute chronic obstructive pulmonary disease exacerbation from acute tracheobronchitis with much improvement. 2. Justine albicans in the bronchial washing. 3. Status post bronchoscopy and lavage. 4. Gastroesophageal reflux disease. 5. Essential hypertension. 6. Hyperlipidemia. 7. Benign prostatic hypertrophy. 8. Chronic rheumatoid arthritis. 9. Hypothyroid. 10.Chronic hypoxic respiratory failure from underlying chronic obstructive pulmonary disease. 11.Acute hypoxic respiratory failure, present on admission. 12.Chronic diverticulosis. 13.Mild cognitive impairment from underlying late-onset Alzheimer's dementia. 14.Restless legs syndrome. 15.Chronic gait dysfunction. Uses a cane and a walker. 16.Chronic pain syndrome, cause undetermined; has an intrathecal pain pump, being followed by Dr. Hilliard. 17.Microperforation with pneumoperitoneum, being managed conservatively. PLAN: Continue current medication and treatment plan. Patient's steroids have been discontinued. On IV antibiotic. Clear liquid may be started by Dr. Linton. Care was discussed with the patient. Will follow. MMODL / IJN: [id number] /
[2018-08-14] MEDS: PANTOPRAZOLE 40 MG TABLET PO SCH (21:40)
[2018-08-14] MEDS: SENNOSIDES 8.6 MG TAB PO SCH (21:40)
[2018-08-14] MEDS: ATORVASTATIN 20 MG TAB PO SCH (21:40)
[2018-08-14] MEDS: TAMSULOSIN 0.4 MG CAP.ER.24H PO SCH (21:40)
[2018-08-14] MEDS: DONEPEZIL 10 MG TAB PO SCH (21:41)
[2018-08-14] MEDS: DOXEPIN 25 MG CAP PO SCH (21:41)
[2018-08-14] MEDS: FINASTERIDE 5 MG TAB PO SCH (21:41)
[2018-08-14] MEDS: MELATONIN 5 MG TABLET PO SCH (21:41)
[2018-08-15] MEDS: IPRATROPIUM-ALBUTEROL 3 ML NEB INHALATION PRN (03:54)
[2018-08-15 04:06] LABS: Glucose,Whole Blood 168 mg/dL (75-99)
[2018-08-15] MEDS: HYDROcodone/APAP 10-325MG 1 EACH TAB PO PRN ×2 (05:40→20:26)
[2018-08-15] MEDS: LEVOTHYROXINE 50 MCG TAB PO SCH (05:40)
[2018-08-15 05:54] LABS: Calcium 7.9 mg/dL (8.4-10.2)
[2018-08-15 06:03] LABS: HCT 38.8 % (39.0-53.0); HGB 12.1 gm/dL (13.0-17.5); MCHC 31.2 g/dL (31.0-37.0); MCV 99.3 fL (80.0-100.0); Macrocytosis Slight; Mean Platelet Volume 7.7; Platelet Count 105 k/uL (150-450); RBC 3.91 m/uL (4.30-5.90); WBC 11.7 k/uL (3.8-10.6)
[2018-08-15 06:23] LABS: Potassium 4.6 mmol/L (3.5-5.1)
[2018-08-15 06:51] LABS: Glucose,Whole Blood 106 mg/dL (75-99)
[2018-08-15] MEDS: INSULIN ASPART (NovoLOG) 100 UNIT/ML VIAL SQ SCH ×4 (08:25→21:39)
[2018-08-15] MEDS: BUDESONIDE 1 MG/2 ML NEBU INHALATION SCH ×2 (08:52→20:41)
[2018-08-15] MEDS: FORMOTEROL FUMARATE 20 MCG/2 ML NEBU INHALATION SCH ×2 (08:52→20:41)
[2018-08-15] MEDS: IPRATROPIUM-ALBUTEROL 3 ML NEB INHALATION SCH ×4 (08:52→20:41)
[2018-08-15] MEDS: guaiFENesin 600 MG TABLET.ER PO SCH ×2 (09:19→20:25)
[2018-08-15] MEDS: GABAPENTIN 400 MG CAP PO SCH ×3 (09:19→21:46)
[2018-08-15] MEDS: MULTIVITAMINS, THERA 1 EACH TAB PO SCH (09:19)
[2018-08-15] MEDS: DILTIAZEM CD 120 MG CAP.ER.24H PO SCH (09:20)
[2018-08-15] MEDS: FLUCONAZOLE 100 MG TAB PO SCH (09:20)
[2018-08-15] MEDS: SODIUM CHLORIDE 0.9% 1,000 ML IV SCH (09:21)
[2018-08-15] MEDS: THEOPHYLLINE 24 HOUR 200 MG CAP.ER.24H PO SCH (09:21)
[2018-08-15] MEDS: PIPERACILLIN-TAZOBACTAM 3.375 GM in SODIUM CHLORIDE 0.9% 100 ML IVPB SCH ×3 (10:45→23:19)
--- NOTE | 2018-08-15 11:05 | XR ---
EXAMINATION TYPE: XR abdomen 2V DATE OF EXAM: 08/15/2018 COMPARISON: 06/15/2017 INDICATION: Abdomen pain TECHNIQUE: Single view abdomen frontal upright view FINDINGS: There is a normal bowel gas pattern. Contrast within the ascending and transverse colon. Psoas margins are normal. No organomegaly is present. IMPRESSION: 1. Unremarkable Abdomen
[2018-08-15] MEDS ORDERED: HYDROCORTISONE SUCCINATE 100 MG/2 ML VIAL IV STA (11:15)
[2018-08-15 11:21] LABS: Glucose,Whole Blood 143 mg/dL (75-99)
--- NOTE | 2018-08-15 12:24 | P.PN ---
Subjective Progress Note Date: 08/15/18 Principal diagnosis: Acute exacerbation of chronic obstructive pulmonary disease. The patient is seen today in 08/15/2018 in follow-up on the regular medical floor. He continues with dyspnea on exertion. Currently maintaining good O2 saturations in the 90s on 3 L/m per nasal cannula. He has had ongoing issues with abdominal discomfort. Abdominal x-ray this morning reveals no acute abnormalities. Surgical services is on the case. White count 11.7. Hemoglobin 12.1. Creatinine 1.14. He remains on Zosyn, bronchodilators, sided Cortef Objective - Vital Signs Vital signs: Vital Signs Temp 98.8 F 08/15/18 07:41 Pulse 96 08/15/18 09:06 Resp 21 08/15/18 08:00 BP 106/59 08/15/18 07:41 Pulse Ox 93 L 08/15/18 07:41 Intake & Output 08/14/18 08/15/18 08/15/18 18:59 06:59 18:59 Intake Total 0 620 Output Total 800 1400 Balance -800 -780 Weight 99.5 kg Intake: Intake, IV Titration 500 Amount Piperacillin-Tazobactam 3 100 .375 gm In Sodium Chloride 0.9% 100 ml @ 25 mls/hr IVPB Q8HR [facility] Rx# :[id number] Sodium Chloride 0.9% 1, 400 000 ml @ 50 mls/hr IV . Q20H [facility] Rx#:[id number] Oral 0 120 Output: Urine 800 1400 Other: Voiding Method Bedside Commode Bedside Commode Urinal Urinal # Voids 4 1 - Exam GENERAL EXAM: Alert, pleasant, obese 83-year-old white male, currently on 3 L of oxygen, he has mild dyspnea on exertion, HEAD: Normocephalic/atraumatic. EYES: Normal reaction of pupils, equal size. Conjunctiva pink, sclera white. NOSE: Clear with pink turbinates. THROAT: No erythema or exudates. NECK: No masses, no JVD, no thyroid enlargement, no adenopathy. CHEST: No chest wall deformity. Symmetrical expansion. LUNGS: Equal air entry with minimal wheezing and rhonchi CVS: Regular rate and rhythm, normal S1 and S2, no gallops, no murmurs, no rubs ABDOMEN: Soft, tender. No hepatosplenomegaly, normal bowel sounds, no guarding or rigidity. EXTREMITIES: No clubbing, no edema, no cyanosis, 2+ pulses and upper and lower extremities. MUSCULOSKELETAL: Muscle strength and tone normal. SPINE: No scoliosis or deformity SKIN: No rashes CENTRAL NERVOUS SYSTEM: No focal deficits, tone is normal in all 4 extremities. PSYCHIATRIC: Alert and oriented -3. Appropriate affect. Intact judgment and insight. - Labs CBC & Chem 7: 08/15/18 05:10 08/15/18 05:10 Labs: Abnormal Lab Results - Last 24 Hours (Table) 08/14/18 08/15/18 08/15/18 Range/Units 20:10 04:04 05:10 WBC 11.7 H (3.8-10.6) k/uL RBC 3.91 L (4.30-5.90) m/uL Hgb 12.1 L (13.0-17.5) gm/dL Hct 38.8 L (39.0-53.0) % Plt Count 105 L (150-450) k/uL Carbon Dioxide (22-30) mmol/L BUN (9-20) mg/dL POC Glucose (mg/dL) 106 H 168 H (75-99) mg/dL Calcium (8.4-10.2) mg/dL 08/15/18 08/15/18 08/15/18 Range/Units 05:10 06:50 11:20 WBC (3.8-10.6) k/uL RBC (4.30-5.90) m/uL Hgb (13.0-17.5) gm/dL Hct (39.0-53.0) % Plt Count (150-450) k/uL Carbon Dioxide 35 H (22-30) mmol/L BUN 27 H (9-20) mg/dL POC Glucose (mg/dL) 106 H 143 H (75-99) mg/dL Calcium 7.9 L (8.4-10.2) mg/dL Assessment and Plan Assessment: Assessment: #1. Acute exacerbation of chronic obstructive pulmonary disease complicated by purulent tracheobronchitis without katharina pneumonia. Recently hospitalized for COPD, and readmitted for acute episode of respiratory distress, repeat chest x- rays in the emergency department were negative for any focal pneumonia or congestive heart failure. Status post bronchoscopy with BAL with Justine only. #2. Previous history of heavy tobacco use #3. Abdominal pain secondary to moderate colonic diverticulosis without diverticulitis definitely present. Currently on Zosyn. #4. Hypertension, hyperlipidemia #5. Previous history of pneumonia #6. History of benign prostatic hypertrophy #7. Rheumatoid arthritis #8. Chronic back pain syndrome with pain pump insertion #9. History of diverticulosis #10. Migraine headache #11. Restless leg syndrome Plan: The patient was seen and evaluated by Dr. Diaz. His abdominal discomfort is his main complaint today. Currently on Zosyn. Midline placed. Continue with bronchodilators. Surgical services is on the case. We'll continue to follow. I, the cosigning physician, performed a history & physical examination of the patient. Lungs sounds bilateral end expiratory wheeze, diminished. Maintaining good O2 saturations in the 90s on 3 L/m per nasal cannula. I discussed the assessment and plan of care with my nurse practitioner, Hailey Oh. I attest to the above note as dictated by her.
--- NOTE | 2018-08-15 13:15 | P.PN ---
Subjective Progress Note Date: 08/15/18 CHIEF COMPLAINT: abnormal CT scan HISTORY OF PRESENT ILLNESS: Patient examined at the bedside. Patient apparently had an episode overnight of severe abdominal pain. However, he reports his pain is tolerable this morning. Denies nausea or vomiting. Abdominal xray performed this morning is negative for free air. WBC 11.7. PHYSICAL EXAM: VITAL SIGNS: Reviewed. GENERAL: Well-developed in no acute distress. HEENT: No sclera icterus. Extraocular movements grossly intact. Moist buccal mucosa. Head is atraumatic, normocephalic. ABDOMEN: Obese. Soft. Nondistended. Mildly tender to palpation of left lower quadrant. Pain pump noted to LLQ. No peritonitis. NEUROLOGIC: Alert and oriented. Cranial nerves II through XII grossly intact. ASSESSMENT: 1. Pneumoperitoneum 2. Chronic abdominal pain PLAN: Strict NPO. Discussion held with multiple family members at the bedside regarding patient condition and plan of care. No surgical intervention recommended at this time. Surgical intervention remains a possibility if patients condition worsens. Nurse practitioner note has been reviewed by physician. Signing provider agrees with the documented findings, assessment, and plan of care. Objective - Vital Signs Vital signs: Vital Signs Temp 98.8 F 08/15/18 07:41 Pulse 96 08/15/18 12:26 Resp 21 08/15/18 08:00 BP 106/59 08/15/18 07:41 Pulse Ox 93 L 08/15/18 07:41 Intake & Output 08/14/18 08/15/18 08/15/18 18:59 06:59 18:59 Intake Total 0 620 Output Total 800 1400 Balance -800 -780 Weight 99.5 kg Intake: Intake, IV Titration 500 Amount Piperacillin-Tazobactam 3 100 .375 gm In Sodium Chloride 0.9% 100 ml @ 25 mls/hr IVPB Q8HR [facility] Rx# :[id number] Sodium Chloride 0.9% 1, 400 000 ml @ 50 mls/hr IV . Q20H [facility] Rx#:[id number] Oral 0 120 Output: Urine 800 1400 Other: Voiding Method Bedside Commode Bedside Commode Urinal Urinal # Voids 4 1 - Labs CBC & Chem 7: 08/15/18 05:10 08/15/18 05:10 Labs: Abnormal Lab Results - Last 24 Hours (Table) 08/14/18 08/15/1819 Range/Units 20:10 04:04 05:10 WBC 11.7 H (3.8-10.6) k/uL RBC 3.91 L (4.30-5.90) m/uL Hgb 12.1 L (13.0-17.5) gm/dL Hct 38.8 L (39.0-53.0) % Plt Count 105 L (150-450) k/uL Carbon Dioxide (22-30) mmol/L BUN (9-20) mg/dL POC Glucose (mg/dL) 106 H 168 H (75-99) mg/dL Calcium (8.4-10.2) mg/dL 08/15/18 08/15/18 08/15/18 Range/Units 05:10 06:50 11:20 WBC (3.8-10.6) k/uL RBC (4.30-5.90) m/uL Hgb (13.0-17.5) gm/dL Hct (39.0-53.0) % Plt Count (150-450) k/uL Carbon Dioxide 35 H (22-30) mmol/L BUN 27 H (9-20) mg/dL POC Glucose (mg/dL) 106 H 143 H (75-99) mg/dL Calcium 7.9 L (8.4-10.2) mg/dL Assessment and Plan (1) Pneumoperitoneum Current Visit: Yes Status: Acute Code(s): K66.8 - OTHER SPECIFIED DISORDERS OF PERITONEUM SNOMED Code(s): 32426248
[2018-08-15] MEDS: ISOSORBIDE MONONITRATE ER 60 MG TAB.ER.24H PO SCH (14:39)
[2018-08-15] MEDS: FUROSEMIDE 10 MG/ML 2 ML VIAL IV SCH (14:41)
[2018-08-15] MEDS: HYDROCORTISONE SUCCINATE 100 MG/2 ML VIAL IV SCH ×2 (16:28→21:46)
--- NOTE | 2018-08-15 16:31 | PN ---
PROGRESS NOTE DATE OF SERVICE: 08/15/2018 PRESENTING COMPLAINT: Low blood pressure. HISTORY OF PRESENTING COMPLAINT: This patient was admitted with severe COPD exacerbation and tracheobronchitis, status post bronchoscopy; had a lot of justine. The patient was also found to have free air in the abdomen and was made n.p.o. by Dr. Linton yesterday. This morning patient dropped his blood pressure down to about 90 systolic; was a little bit tired and rundown. This morning the patient has family members at the bedside. REVIEW OF SYSTEMS: Done for constitutional, cardiovascular, GI, pulmonary; relevant findings as above. Patient is still having left-sided abdominal pain. No nausea or vomiting. Pulmonary- mir, no worsening of symptoms. CURRENT MEDICATIONS: Reviewed. They include IV Zosyn. PHYSICAL EXAMINATION: Temperature 98.7, pulse 90, respiration 16, blood pressure 95/59, pulse ox 94% on 3 L. GENERAL APPEARANCE: Lying in bed, tired-appearing. Awake. EYES: Pupils equal. Conjunctivae normal. NECK: JVD not raised. Mass not palpable. RESPIRATORY: Effort increased. LUNGS: Decreased breath sounds. CARDIOVASCULAR: First and second sounds normal. Some edema. ABDOMEN: Left-sided tenderness. No guarding or rigidity. Pain pump in place. Liver and spleen not palpable. PSYCHIATRY: Answering questions but a bit more tired-appearing. INVESTIGATIONS: White count 11.7, hemoglobin 12.1. Potassium 4.6. BUN 27, creatinine 1.14. ASSESSMENT: 1. Episode of acute drop in blood pressure; could be from medicines. Patient had been on high dose of steroids. 2. Acute chronic obstructive pulmonary disease exacerbation with acute tracheobronchitis. 3. Justine albicans on bronchial washing. 4. Status post bronchoscopy and lavage. 5. Gastroesophageal reflux disease. 6. Essential hypertension. 7. Hyperlipidemia. 8. Benign prostatic hypertrophy. 9. Chronic rheumatoid arthritis. 10.Hypothyroid. 11.Chronic hypoxic respiratory failure from underlying chronic obstructive pulmonary disease. 12.Acute hypoxic respiratory failure, POA. 13.Chronic diverticulosis. 14.Mild cognitive impairment from underlying late-onset Alzheimer's dementia. 15.Restless legs syndrome. 16.Chronic gait dysfunction. Uses a cane and a walker. 17.Chronic pain syndrome, cause undetermined. Has an intrathecal pain pump being followed by Dr. Hilliard. 18.Microperforation of the gut with pneumoperitoneum, being followed by Surgery. PLAN: I had a very lengthy talk with the patient and his daughter today, and they understand patient's overall picture. I also spoke to Cristina from General Surgery. I would like to put the patient on cortisone in view of possible [place], as patient had been on a high dose of steroids. Will give a loading dose of 100 mg hydrocortisone and then 50 mg IV q.8. Care was also discussed at length with the patient's daughter. They do understand that overall prognosis is guarded. ADVANCED CARE PLANNING: This was again discussed with the patient and his daughter. End-of-life care was discussed, given his multiple core problems. Patient's DPOA is the patient's daughter and other family member in the event patient is not able to make decisions for himself. Did talk about DNR at this point. The patient would like to be FULL CODE, understanding his overall guarded prognosis. Total of about 20 minutes was spent in advanced care planning in addition to the progress note. MMODL / IJN: [id number] /
[2018-08-15] MEDS: LORazepam 0.5 MG TAB PO PRN ×2 (16:51→20:25)
[2018-08-15 17:29] LABS: Glucose,Whole Blood 228 mg/dL (75-99)
[2018-08-15] MEDS: SENNOSIDES 8.6 MG TAB PO SCH (20:25)
[2018-08-15] MEDS: PANTOPRAZOLE 40 MG TABLET PO SCH (20:26)
[2018-08-15] MEDS: TAMSULOSIN 0.4 MG CAP.ER.24H PO SCH (20:26)
[2018-08-15] MEDS: ATORVASTATIN 20 MG TAB PO SCH (20:26)
[2018-08-15] MEDS: DOXEPIN 25 MG CAP PO SCH (20:28)
[2018-08-15] MEDS: MELATONIN 5 MG TABLET PO SCH (20:28)
[2018-08-15] MEDS: DONEPEZIL 10 MG TAB PO SCH (20:28)
[2018-08-15] MEDS: FINASTERIDE 5 MG TAB PO SCH (20:29)
[2018-08-15 21:02] LABS: Glucose,Whole Blood 120 mg/dL (75-99)
--- NOTE | 2018-08-15 21:18 | P.PN ---
Progress Note - Text Progress Note Date: 08/15/18 He reports improvement of his abdominal pain. AXR personally reviewed without free air. Recommend continued bowel rest for 48 hrs until .
[2018-08-16] MEDS: SODIUM CHLORIDE 0.9% 1,000 ML IV SCH ×2 (04:20→09:16)
[2018-08-16] MEDS: LEVOTHYROXINE 50 MCG TAB PO SCH (06:02)
[2018-08-16 07:00] LABS: Glucose,Whole Blood 147 mg/dL (75-99)
[2018-08-16] MEDS: BUDESONIDE 1 MG/2 ML NEBU INHALATION SCH ×2 (07:37→20:52)
[2018-08-16] MEDS: FORMOTEROL FUMARATE 20 MCG/2 ML NEBU INHALATION SCH ×2 (07:37→20:52)
[2018-08-16] MEDS: IPRATROPIUM-ALBUTEROL 3 ML NEB INHALATION SCH ×4 (07:37→20:52)
[2018-08-16] MEDS: INSULIN ASPART (NovoLOG) 100 UNIT/ML VIAL SQ SCH ×4 (09:15→21:31)
[2018-08-16] MEDS: HYDROCORTISONE SUCCINATE 100 MG/2 ML VIAL IV SCH ×3 (09:16→23:37)
[2018-08-16] MEDS: PIPERACILLIN-TAZOBACTAM 3.375 GM in SODIUM CHLORIDE 0.9% 100 ML IVPB SCH ×3 (09:16→23:37)
[2018-08-16] MEDS: guaiFENesin 600 MG TABLET.ER PO SCH ×2 (09:17→21:32)
[2018-08-16] MEDS: GABAPENTIN 400 MG CAP PO SCH ×3 (09:17→21:33)
[2018-08-16] MEDS: HYDROcodone/APAP 10-325MG 1 EACH TAB PO PRN ×2 (09:17→21:32)
[2018-08-16] MEDS: FUROSEMIDE 10 MG/ML 2 ML VIAL IV SCH (09:18)
[2018-08-16] MEDS: MULTIVITAMINS, THERA 1 EACH TAB PO SCH (09:18)
[2018-08-16] MEDS: DILTIAZEM CD 120 MG CAP.ER.24H PO SCH (09:19)
[2018-08-16] MEDS: FLUCONAZOLE 100 MG TAB PO SCH (09:19)
[2018-08-16] MEDS: ISOSORBIDE MONONITRATE ER 60 MG TAB.ER.24H PO SCH ×2 (09:20→13:40)
[2018-08-16] MEDS: THEOPHYLLINE 24 HOUR 200 MG CAP.ER.24H PO SCH (09:20)
--- NOTE | 2018-08-16 10:28 | P.PN ---
Subjective Progress Note Date: 08/16/18 Principal diagnosis: Acute exacerbation of chronic obstructive pulmonary disease. The patient is seen today in 08/16/2018 in follow-up on the regular medical floor. He is currently sitting up at the bedside. Awake and alert in no acute distress. Pulmonary status nearly back to his baseline. He is maintaining good O2 saturations in the 90s on 3 L/m per nasal cannula. He's been afebrile. Hemodynamically stable. Less abdominal discomfort today. Bowel rest/nothing by mouth per surgical services. Objective - Vital Signs Vital signs: Vital Signs Temp 98.7 F 08/16/18 04:36 Pulse 82 08/16/18 08:00 Resp 20 08/16/18 04:36 BP 108/74 08/16/18 04:36 Pulse Ox 96 08/16/18 04:36 Intake & Output 08/15/18 08/16/18 08/16/18 18:59 06:59 18:59 Intake Total 620 Output Total 0 Balance 620 Weight 98.5 kg Intake: Intake, IV Titration 500 Amount Piperacillin-Tazobactam 3 100 .375 gm In Sodium Chloride 0.9% 100 ml @ 25 mls/hr IVPB Q8HR [facility] Rx# :[id number] Sodium Chloride 0.9% 1, 400 000 ml @ 50 mls/hr IV . Q20H [facility] Rx#:[id number] Oral 120 Output: Urine 0 Other: Voiding Method Bedside Commode Bedside Commode Urinal Urinal # Voids 3 3 - Exam GENERAL EXAM: Alert, pleasant, obese 83-year-old white male, currently on 3 L of oxygen. HEAD: Normocephalic/atraumatic. EYES: Normal reaction of pupils, equal size. Conjunctiva pink, sclera white. NOSE: Clear with pink turbinates. THROAT: No erythema or exudates. NECK: No masses, no JVD, no thyroid enlargement, no adenopathy. CHEST: No chest wall deformity. Symmetrical expansion. LUNGS: Equal air entry with minimal wheezing, diminished. CVS: Regular rate and rhythm, normal S1 and S2, no gallops, no murmurs, no rubs ABDOMEN: Soft, less tender. No hepatosplenomegaly, normal bowel sounds, no guarding or rigidity. EXTREMITIES: No clubbing, no edema, no cyanosis, 2+ pulses and upper and lower extremities. MUSCULOSKELETAL: Muscle strength and tone normal. SPINE: No scoliosis or deformity SKIN: No rashes CENTRAL NERVOUS SYSTEM: No focal deficits, tone is normal in all 4 extremities. PSYCHIATRIC: Alert and oriented -3. Appropriate affect. Intact judgment and insight. - Labs CBC & Chem 7: 08/15/18 05:10 08/15/18 05:10 Labs: Abnormal Lab Results - Last 24 Hours (Table) 08/15/18 08/15/18 08/15/18 Range/Units 11:20 17:28 20:53 POC Glucose (mg/dL) 143 H 228 H 120 H (75-99) mg/dL 08/16/18 Range/Units 06:59 POC Glucose (mg/dL) 147 H (75-99) mg/dL Assessment and Plan Assessment: Assessment: #1. Acute exacerbation of chronic obstructive pulmonary disease complicated by purulent tracheobronchitis without katharina pneumonia. Recently hospitalized for COPD, and readmitted for acute episode of respiratory distress, repeat chest x- rays in the emergency department were negative for any focal pneumonia or congestive heart failure. Status post bronchoscopy with BAL with Justine only. Improved. #2. Previous history of heavy tobacco use #3. Abdominal pain secondary to moderate colonic diverticulosis without di verticulitis definitely present. Currently on Zosyn. #4. Hypertension, hyperlipidemia #5. Previous history of pneumonia #6. History of benign prostatic hypertrophy #7. Rheumatoid arthritis #8. Chronic back pain syndrome with pain pump insertion #9. History of diverticulosis #10. Migraine headache #11. Restless leg syndrome Plan: The patient was seen and evaluated by Dr. Diaz. He is currently stable from the pulmonary standpoint. His abdominal discomfort is improved today. Currently on Zosyn. On bowel rest. Surgical services is on the case. We'll continue to follow. I, the cosigning physician, performed a history & physical examination of the patient. Lungs sounds bilateral end expiratory wheeze, diminished. Maintaining good O2 saturations in the 90s on 3 L/m per nasal cannula. I discussed the assessment and plan of care with my nurse practitioner, Hailey Oh. I attest to the above note as dictated by her.
--- NOTE | 2018-08-16 10:43 | P.PN ---
Subjective Progress Note Date: 08/16/18 CHIEF COMPLAINT: abnormal CT scan HISTORY OF PRESENT ILLNESS: Patient examined at the bedside. No family present. Patient reports minimal abdominal pain this morning. He c/o slight discomfort at the site of his pain pump. No new labs this AM. PHYSICAL EXAM: VITAL SIGNS: Reviewed. GENERAL: Well-developed in no acute distress. HEENT: No sclera icterus. Extraocular movements grossly intact. Moist buccal mucosa. Head is atraumatic, normocephalic. ABDOMEN: Obese. Soft. Nondistended. Nontender. Pain pump noted to LLQ. No peritonitis. NEUROLOGIC: Alert and oriented. Cranial nerves II through XII grossly intact. ASSESSMENT: 1. Pneumoperitoneum 2. Chronic abdominal pain PLAN: NPO until per Dr. Linton No surgical intervention recommended at this time. Nurse practitioner note has been reviewed by physician. Signing provider agrees with the documented findings, assessment, and plan of care. Objective - Vital Signs Vital signs: Vital Signs Temp 98.7 F 08/16/18 04:36 Pulse 82 08/16/18 08:00 Resp 20 08/16/18 04:36 BP 108/74 08/16/18 04:36 Pulse Ox 96 08/16/18 04:36 Intake & Output 08/15/18 08/16/18 08/16/18 18:59 06:59 18:59 Intake Total 620 Output Total 0 Balance 620 Weight 98.5 kg Intake: Intake, IV Titration 500 Amount Piperacillin-Tazobactam 3 100 .375 gm In Sodium Chloride 0.9% 100 ml @ 25 mls/hr IVPB Q8HR [facility] Rx# :[id number] Sodium Chloride 0.9% 1, 400 000 ml @ 50 mls/hr IV . Q20H [facility] Rx#:[id number] Oral 120 Output: Urine 0 Other: Voiding Method Bedside Commode Bedside Commode Urinal Urinal # Voids 3 3 - Labs CBC & Chem 7: 08/15/18 05:10 08/15/18 05:10 Labs: Abnormal Lab Results - Last 24 Hours (Table) 08/15/18 08/15/18 08/15/18 Range/Units 11:20 17:28 20:53 POC Glucose (mg/dL) 143 H 228 H 120 H (75-99) mg/dL 08/16/18 Range/Units 06:59 POC Glucose (mg/dL) 147 H (75-99) mg/dL Assessment and Plan (1) Pneumoperitoneum Current Visit: Yes Status: Acute Code(s): K66.8 - OTHER SPECIFIED DISORDERS OF PERITONEUM SNOMED Code(s): 82220451
[2018-08-16 11:03] LABS: Glucose,Whole Blood 128 mg/dL (75-99)
[2018-08-16] MEDS: LORazepam 0.5 MG TAB PO PRN ×2 (13:40→21:32)
--- NOTE | 2018-08-16 14:48 | P.PN ---
Progress Note - Text Progress Note Date: 08/16/18 Patient seen and evaluated. Family and daughter at bedside. No diffuse abdominal pain. He and family reports chronic discomfort from the pain pump at the left lower quadrant. He has known history of diverticulitis. No fevers or chills. Plan to continue NPO for at least 48 hrs with start of liquid diet tomorrow. Discusion of post-op wishes encouraged should surgery be necessary. At this time, he is doing well and is stable. Surgical plan reviewed.
[2018-08-16 17:11] LABS: Glucose,Whole Blood 134 mg/dL (75-99)
[2018-08-16 20:01] LABS: Glucose,Whole Blood 143 mg/dL (75-99)
[2018-08-16] MEDS: ATORVASTATIN 20 MG TAB PO SCH (21:32)
[2018-08-16] MEDS: SENNOSIDES 8.6 MG TAB PO SCH (21:32)
[2018-08-16] MEDS: PANTOPRAZOLE 40 MG TABLET PO SCH (21:33)
[2018-08-16] MEDS: TAMSULOSIN 0.4 MG CAP.ER.24H PO SCH (21:33)
[2018-08-16] MEDS: DONEPEZIL 10 MG TAB PO SCH (21:34)
[2018-08-16] MEDS: DOXEPIN 25 MG CAP PO SCH (21:34)
[2018-08-16] MEDS: FINASTERIDE 5 MG TAB PO SCH (21:34)
[2018-08-16] MEDS: MELATONIN 5 MG TABLET PO SCH (21:34)
--- NOTE | 2018-08-17 05:32 | PN ---
PROGRESS NOTE DATE OF SERVICE: 08/16/2018 PRESENTING COMPLAINT: Abdominal pain. INTERVAL HISTORY: The patient initially admitted with severe COPD exacerbation, tracheobronchitis, status post bronchoscopy that showed Justine. The patient is now being followed for free air in the abdomen. This appears to be some chronic component of abdominal pain. The patient has not had any flatus. The patient also had some adrenal insufficiency. The patient has been put back on hydrocortisone. Still has abdominal pain. No flatus or bowel movement. Breathing is much improved. REVIEW OF SYSTEMS: Done for constitutional, cardiovascular, GI, pulmonary; relevant findings as above. CURRENT MEDICATIONS: Current medications are reviewed that include hydrocortisone 50 mg q.8 and IV Zosyn. PHYSICAL EXAMINATION: On examination, temperature 98.3, pulse 77, respiration 18, blood pressure 124/79, pulse ox 95% on 3 L. GENERAL APPEARANCE: Sitting up, more awake. EYES: Pupils equal. Conjunctivae normal. NECK: JVD not raised. Mass not palpable. RESPIRATORY: Effort increased. LUNGS: Decreased breath sounds. CARDIOVASCULAR: First and second sounds normal. No edema. ABDOMEN: Left-sided tenderness. No guarding or rigidity. Liver and spleen not palpable. Pain pump in place. PSYCHIATRY: Awake, answering questions appropriately. INVESTIGATIONS: Accu-Cheks are noted. ASSESSMENT: 1. Acute chronic obstructive pulmonary disease exacerbation with acute tracheobronchitis with clinical improvement. 2. Justine albicans on bronchial washing. 3. Status post bronchoscopy. 4. Gastroesophageal reflux disease. 5. Essential hypertension. 6. Hyperlipidemia. 7. Benign prostatic hypertrophy. 8. Chronic rheumatoid arthritis. 9. Hypothyroid. 10.Chronic hypoxic respiratory failure from underlying chronic obstructive pulmonary disease. 11.Acute hypoxic respiratory failure, POA. 12.Chronic diverticulosis. 13.Mild cognitive impairment from underlying late onset Alzheimer's dementia. 14.Restless legs syndrome. 15.Chronic gait dysfunction, uses a cane and a walker. 16.Chronic pain syndrome, cause undetermined. Patient has an intrathecal pain pump being followed by Dr. Hilliard. 17.Microperforation of the gut with pneumoperitoneum with some clinical improvement. PLAN: The patient is being put on a liquid diet. Patient's dose of hydrocortisone will be cut back to 25 q.8. The patient is currently n.p.o. 24 hours. Diet will be advanced as per Surgery. Care was discussed with the patient and also discussed with Dr. Linton at length. Will repeat abdominal x-ray in the morning. Total time spent today was about 40 minutes with over 25 minutes of discussion. MMSALEEML / IJN: [id number] /
[2018-08-17] MEDS: LEVOTHYROXINE 50 MCG TAB PO SCH (05:43)
[2018-08-17 06:48] LABS: Glucose,Whole Blood 147 mg/dL (75-99)
[2018-08-17 07:56] LABS: Basophils % (A) 0 %; Eosinophils % (A) 0 %; HCT 32.7 % (39.0-53.0); HGB 10.5 gm/dL (13.0-17.5); Hypochromasia Slight; Lymphocytes # (A) 0.4 k/uL (1.0-4.8); Lymphocytes % (A) 10 %; MCH 32.3 pg (25.0-35.0); MCHC 32.2 g/dL (31.0-37.0); MCV 100.3 fL (80.0-100.0); Macrocytosis Slight; Mean Platelet Volume 7.4; Monocytes # (A) 0.1 k/uL (0-1.0); Monocytes % (A) 3 %; Neutrophils # (A) 3.3 k/uL (1.3-7.7); Neutrophils % (A) 86 %; RBC 3.26 m/uL (4.30-5.90); RDW 14.4 % (11.5-15.5); WBC 3.8 k/uL (3.8-10.6)
--- NOTE | 2018-08-17 07:59 | XR ---
EXAMINATION TYPE: XR abdomen acute w cxr DATE OF EXAM: 08/17/2018 CLINICAL HISTORY: Follow-up study for free air/microperforation. TECHNIQUE: Single frontal view of chest is obtained. Supine and upright views of the abdomen are acq uired. COMPARISON: Chest x-ray August 09, 2018. CT abdomen and pelvis August 13, 2018. FINDINGS: There is persistent bibasilar opacities. Upper lungs remain clear. Cardiac silhouette size appears stable and enlarged though this correlates with prominent cardiac fat pad on CT. Degenerativ e change bilateral glenohumeral joints is redemonstrated. Gas is noted in nondistended small bowel loops. Gas, contrast, and fecal material is seen in nondist ended colon. Progression of contrast from small to large bowel loops is noted. No definitive new pne umoperitoneum. Evaluation is suboptimal due to patient's large body habitus. Spurring in the lumbar s pine is redemonstrated. Stimulator device left anterior pelvis is again seen. IMPRESSION: 1. Persistent patchy bibasilar atelectasis and/or infiltrate. 2. Persistent nonobstructive bowel gas pattern. Area of nondependent free air on CT would be difficul t to distinctly visualize on plain films.
[2018-08-17 08:02] LABS: Calcium 7.7 mg/dL (8.4-10.2); Potassium 3.6 mmol/L (3.5-5.1)
[2018-08-17] MEDS: guaiFENesin 600 MG TABLET.ER PO SCH ×2 (08:20→22:05)
[2018-08-17] MEDS: GABAPENTIN 400 MG CAP PO SCH ×3 (08:20→21:54)
[2018-08-17] MEDS: FUROSEMIDE 10 MG/ML 2 ML VIAL IV SCH (08:20)
[2018-08-17] MEDS: HYDROcodone/APAP 10-325MG 1 EACH TAB PO PRN ×2 (08:20→19:18)
[2018-08-17] MEDS: MULTIVITAMINS, THERA 1 EACH TAB PO SCH (08:20)
[2018-08-17] MEDS: HYDROCORTISONE SUCCINATE 100 MG/2 ML VIAL IV SCH ×2 (08:21→17:09)
[2018-08-17] MEDS: THEOPHYLLINE 24 HOUR 200 MG CAP.ER.24H PO SCH (08:23)
[2018-08-17] MEDS: DILTIAZEM CD 120 MG CAP.ER.24H PO SCH (08:23)
[2018-08-17] MEDS: PIPERACILLIN-TAZOBACTAM 3.375 GM in SODIUM CHLORIDE 0.9% 100 ML IVPB SCH ×3 (08:24→23:53)
[2018-08-17] MEDS: FLUCONAZOLE 100 MG TAB PO SCH (08:24)
[2018-08-17] MEDS: INSULIN ASPART (NovoLOG) 100 UNIT/ML VIAL SQ SCH ×4 (08:24→22:05)
[2018-08-17] MEDS: ISOSORBIDE MONONITRATE ER 60 MG TAB.ER.24H PO SCH (08:24)
[2018-08-17] MEDS: FORMOTEROL FUMARATE 20 MCG/2 ML NEBU INHALATION SCH ×2 (08:34→20:14)
[2018-08-17] MEDS: BUDESONIDE 1 MG/2 ML NEBU INHALATION SCH ×2 (08:34→20:14)
[2018-08-17] MEDS: IPRATROPIUM-ALBUTEROL 3 ML NEB INHALATION SCH ×4 (08:34→20:14)
--- NOTE | 2018-08-17 10:55 | P.PN ---
Subjective Progress Note Date: 08/17/18 Principal diagnosis: Acute exacerbation of chronic obstructive pulmonary disease. The patient is seen today 08/17/2017 in follow-up on the regular medical floor. He is currently awake and alert in no acute distress. Resting comfortably in bed. He denies any shortness of breath, cough or congestion. Maintaining good O2 saturations in the 90s on 3 L/m per nasal cannula. He's been afebrile. Bronchial wash reveals no bacterial growth. Remains on Diflucan for Justine. Tolerating a diet now. Abdomen remains soft. Abdominal series reveals persistent nonobstructive bowel gas pattern. Evaluation is suboptimal due to the patient's large body habitus. White count 3.8. Hemoglobin 10.5. Creatinine 1.08. Objective - Vital Signs Vital signs: Vital Signs Temp 97.4 F L 08/17/18 05:00 Pulse 86 08/17/18 08:55 Resp 19 08/17/18 08:20 BP 110/71 08/17/18 05:00 Pulse Ox 95 08/17/18 05:00 Intake & Output 08/16/18 08/17/18 08/17/18 18:59 06:59 18:59 Intake Total 350 300 Output Total 300 Balance 350 0 Weight 98.5 kg Intake: Intake, IV Titration 350 300 Amount Piperacillin-Tazobactam 3 100 .375 gm In Sodium Chloride 0.9% 100 ml @ 25 mls/hr IVPB Q8HR [facility] Rx# :[id number] Sodium Chloride 0.9% 1, 350 200 000 ml @ 50 mls/hr IV . Q20H [facility] Rx#:[id number] Oral 0 0 Output: Urine 300 Other: Voiding Method Bedside Commode Bedside Commode Bedside Commode Urinal Urinal Urinal # Voids 3 1 - Exam GENERAL EXAM: Alert, pleasant, obese 83-year-old white male, currently on 3 L of oxygen. HEAD: Normocephalic/atraumatic. EYES: Normal reaction of pupils, equal size. Conjunctiva pink, sclera white. NOSE: Clear with pink turbinates. THROAT: No erythema or exudates. NECK: No masses, no JVD, no thyroid enlargement, no adenopathy. CHEST: No chest wall deformity. Symmetrical expansion. LUNGS: Equal air entry with faint crackles in the posterior bases. CVS: Regular rate and rhythm, normal S1 and S2, no gallops, no murmurs, no rubs ABDOMEN: Soft, non tender. No hepatosplenomegaly, normal bowel sounds, no guarding or rigidity. EXTREMITIES: No clubbing, no edema, no cyanosis, 2+ pulses and upper and lower extremities. MUSCULOSKELETAL: Muscle strength and tone normal. SPINE: No scoliosis or deformity SKIN: No rashes CENTRAL NERVOUS SYSTEM: No focal deficits, tone is normal in all 4 extremities. PSYCHIATRIC: Alert and oriented -3. Appropriate affect. Intact judgment and insight. - Labs CBC & Chem 7: 08/17/18 06:40 08/17/18 06:40 Labs: Abnormal Lab Results - Last 24 Hours (Table) 08/16/18 08/16/18 08/16/18 Range/Units 11:00 17:10 20:00 RBC (4.30-5.90) m/uL Hgb (13.0-17.5) gm/dL Hct (39.0-53.0) % MCV (80.0-100.0) fL Carbon Dioxide (22-30) mmol/L BUN (9-20) mg/dL Glucose (74-99) mg/dL POC Glucose (mg/dL) 128 H 134 H 143 H (75-99) mg/dL Calcium (8.4-10.2) mg/dL 08/17/18 08/17/18 08/17/18 Range/Units 06:40 06:40 06:47 RBC 3.26 L (4.30-5.90) m/uL Hgb 10.5 L (13.0-17.5) gm/dL Hct 32.7 L (39.0-53.0) % MCV 100.3 H (80.0-100.0) fL Carbon Dioxide 38 H (22-30) mmol/L BUN 29 H (9-20) mg/dL Glucose 124 H (74-99) mg/dL POC Glucose (mg/dL) 147 H (75-99) mg/dL Calcium 7.7 L (8.4-10.2) mg/dL Assessment and Plan Assessment: Assessment: #1. Acute exacerbation of chronic obstructive pulmonary disease complicated by purulent tracheobronchitis without katharina pneumonia. Recently hospitalized for COPD, and readmitted for acute episode of respiratory distress, repeat chest x- rays in the emergency department were negative for any focal pneumonia or congestive heart failure. Status post bronchoscopy with BAL with Justine only. Improved. #2. Previous history of heavy tobacco use #3. Abdominal pain secondary to moderate colonic diverticulosis without diver ticulitis definitely present. Currently on Zosyn. #4. Hypertension, hyperlipidemia #5. Previous history of pneumonia #6. History of benign prostatic hypertrophy #7. Rheumatoid arthritis #8. Chronic back pain syndrome with pain pump insertion #9. History of diverticulosis #10. Migraine headache #11. Restless leg syndrome Plan: The patient was seen and evaluated by Dr. Diaz. He is currently stable from the pulmonary standpoint. Remains on Zosyn. Surgical services is on the case. Less abdominal discomfort and his diet has been advanced to full liquids. We'll continue to follow. I, the cosigning physician, performed a history & physical examination of the patient. Lungs sounds faint crackles in the posterior bases, diminished. Maintaining good O2 saturations in the 90s on 3 L/m per nasal cannula. I discussed the assessment and plan of care with my nurse practitioner, Hailey Oh. I attest to the above note as dictated by her.
[2018-08-17 11:22] LABS: Glucose,Whole Blood 136 mg/dL (75-99)
--- NOTE | 2018-08-17 11:45 | P.PN ---
Subjective Progress Note Date: 08/17/18 CHIEF COMPLAINT: abnormal CT scan HISTORY OF PRESENT ILLNESS: Patient examined at the bedside. Patient was started on full liquid diet by midnight nurse before evaluation from surgical services. Patient states he ate ice cream, yogurt, and pudding. He reports some discomfort after eating but states overall his pain has improved. Denies nausea or vomiting. Abdominal x-ray negative for free air this morning. PHYSICAL EXAM: VITAL SIGNS: Reviewed. GENERAL: Well-developed in no acute distress. HEENT: No sclera icterus. Extraocular movements grossly intact. Moist buccal mucosa. Head is atraumatic, normocephalic. ABDOMEN: Obese. Soft. Nondistended. Nontender. Pain pump noted to LLQ. No peritonitis. NEUROLOGIC: Alert and oriented. Cranial nerves II through XII grossly intact. ASSESSMENT: 1. Pneumoperitoneum 2. Chronic abdominal pain PLAN: Diet downgraded to clear liquids for the day. Do not advance diet without speaking to Dr. Linton No surgical intervention recommended at this time. Nurse practitioner note has been reviewed by physician. Signing provider agrees with the documented findings, assessment, and plan of care. Objective - Vital Signs Vital signs: Vital Signs Temp 97.4 F L 08/17/18 05:00 Pulse 88 08/17/18 11:05 Resp 19 08/17/18 08:20 BP 110/71 08/17/18 05:00 Pulse Ox 95 08/17/18 05:00 Intake & Output 08/16/18 08/17/18 08/17/18 18:59 06:59 18:59 Intake Total 350 300 Output Total 300 Balance 350 0 Weight 98.5 kg Intake: Intake, IV Titration 350 300 Amount Piperacillin-Tazobactam 3 100 .375 gm In Sodium Chloride 0.9% 100 ml @ 25 mls/hr IVPB Q8HR [facility] Rx# :[id number] Sodium Chloride 0.9% 1, 350 200 000 ml @ 50 mls/hr IV . Q20H [facility] Rx#:[id number] Oral 0 0 Output: Urine 300 Other: Voiding Method Bedside Commode Bedside Commode Bedside Commode Urinal Urinal Urinal # Voids 3 1 - Labs CBC & Chem 7: 08/17/18 06:40 08/17/18 06:40 Labs: Abnormal Lab Results - Last 24 Hours (Table) 08/16/18 08/16/18 08/17/18 Range/Units 17:10 20:00 06:40 RBC 3.26 L (4.30-5.90) m/uL Hgb 10.5 L (13.0-17.5) gm/dL Hct 32.7 L (39.0-53.0) % MCV 100.3 H (80.0-100.0) fL Carbon Dioxide (22-30) mmol/L BUN (9-20) mg/dL Glucose (74-99) mg/dL POC Glucose (mg/dL) 134 H 143 H (75-99) mg/dL Calcium (8.4-10.2) mg/dL 08/17/18 08/17/18 08/17/18 Range/Units 06:40 06:47 11:20 RBC (4.30-5.90) m/uL Hgb (13.0-17.5) gm/dL Hct (39.0-53.0) % MCV (80.0-100.0) fL Carbon Dioxide 38 H (22-30) mmol/L BUN 29 H (9-20) mg/dL Glucose 124 H (74-99) mg/dL POC Glucose (mg/dL) 147 H 136 H (75-99) mg/dL Calcium 7.7 L (8.4-10.2) mg/dL Assessment and Plan (1) Pneumoperitoneum Current Visit: Yes Status: Acute Code(s): K66.8 - OTHER SPECIFIED DISORDERS OF PERITONEUM SNOMED Code(s): 14563249
[2018-08-17 11:59] LABS: Platelet Count 93 k/uL (150-450)
[2018-08-17 13:27] VITALS: BMI 34.0
[2018-08-17 17:18] LABS: Glucose,Whole Blood 112 mg/dL (75-99)
[2018-08-17] MEDS: LORazepam 0.5 MG TAB PO PRN (19:18)
--- NOTE | 2018-08-17 19:44 | P.PN ---
Progress Note - Text Progress Note Date: 08/17/18 Patient reevaluated from this morning. I personally spoke to the patient's daughter on the phone per his request. Overall, marked improvement in the last several days. He is passing flatus. He reports constipation as his last bowel movement is over 3 days ago. He tolerated his diet. No increased abdominal pain. Abdominal x-ray personally reviewed without evidence of free air. We'll reevaluate tomorrow regarding diet. Do not advance diet until cleared by surgery.
[2018-08-17 20:55] LABS: Glucose,Whole Blood 134 mg/dL (75-99)
[2018-08-17] MEDS: SENNOSIDES 8.6 MG TAB PO SCH (21:48)
[2018-08-17] MEDS: TAMSULOSIN 0.4 MG CAP.ER.24H PO SCH (21:48)
[2018-08-17] MEDS: ATORVASTATIN 20 MG TAB PO SCH (21:48)
[2018-08-17] MEDS: DOXEPIN 25 MG CAP PO SCH (21:49)
[2018-08-17] MEDS: DONEPEZIL 10 MG TAB PO SCH (21:49)
[2018-08-17] MEDS: FINASTERIDE 5 MG TAB PO SCH (21:49)
[2018-08-17] MEDS: MELATONIN 5 MG TABLET PO SCH (21:49)
[2018-08-17] MEDS: PANTOPRAZOLE 40 MG TABLET PO SCH (22:05)
[2018-08-18] MEDS: SODIUM CHLORIDE 0.9% 1,000 ML IV SCH ×2 (00:10→17:36)
--- NOTE | 2018-08-18 06:41 | PN ---
PROGRESS NOTE DATE OF SERVICE: 08/17/2018 PRESENTING COMPLAINT: Abdominal pain. INTERVAL HISTORY: Patient initially admitted with severe COPD exacerbation, tracheobronchitis, status post bronchoscopy that showed severe Justine. The patient then developed abdominal pain with free air, being managed conservatively. The patient passed small amount of flatus today, started on clear liquids by Surgery. Abdominal pain is better. No nausea or vomiting. Patient also had adrenal insufficiency was given stress dose of steroids. Overall looking better. Breathing is more stable. REVIEW OF SYSTEMS: Done for constitutional, cardiovascular, GI, pulmonary; relevant findings as above. CURRENT MEDICATIONS: Current medications are reviewed that include Solu-Cortef 25 mg q.8, IV Zosyn, IV fluids. PHYSICAL EXAMINATION: On examination, temperature 97.7, pulse 84, respiration 16, blood pressure 127/71, pulse ox 92% on room air. GENERAL APPEARANCE: Sitting up, more awake. EYES: Pupils equal. Conjunctivae normal. NECK: JVD not raised. Mass not palpable. RESPIRATORY: Effort increased. LUNGS: Decreased breath sounds. CARDIOVASCULAR: First and second sounds normal. No edema. ABDOMEN: Decreased left-sided tenderness. No guarding or rigidity. Liver and spleen not palpable. Pain pump in place. PSYCHIATRY: Alert and orient x3. Mood and affect normal. INVESTIGATIONS: White count 3.8, hemoglobin 10.5. Potassium 3.6, BUN 29, creatinine 1.08. Accu-Cheks are noted. Acute abdominal series from this morning shows persistent nonobstructive bowel gas pattern, gas contrast and fecal material seen in the nondistended colon. ASSESSMENT: 1. Acute chronic obstructive pulmonary disease exacerbation with acute tracheobronchitis with clinical improvement. 2. Justine albicans on bronchial washing, status post bronchoscopy. 3. Gastroesophageal reflux disease. 4. Essential hypertension. 5. Hyperlipidemia. 6. Benign prostatic hypertrophy. 7. Chronic rheumatoid arthritis. 8. Hypothyroid. 9. Chronic hypoxic respiratory failure from underlying chronic obstructive pulmonary disease. 10.Acute hypoxic respiratory failure, POA. 11.Chronic diverticulosis. 12.Mild cognitive impairment from underlying late onset Alzheimer's dementia. 13.Restless legs syndrome. 14.Chronic gait dysfunction, uses a cane and a walker. 15.Chronic pain syndrome, cause undetermined. Has a pain pump per Dr. Hilliard. PLAN: The patient will be put on clear liquid diet per General Surgery. Other medication and treatment plan is to continue. We will cut back the hydrocortisone to prednisone 30 mg starting tomorrow and do a more rapid taper. MMSALEEML / ABUNDION: [id number] /
[2018-08-18 06:52] LABS: Glucose,Whole Blood 109 mg/dL (75-99)
[2018-08-18] MEDS: LEVOTHYROXINE 50 MCG TAB PO SCH (07:04)
[2018-08-18] MEDS: IPRATROPIUM-ALBUTEROL 3 ML NEB INHALATION SCH ×4 (07:14→19:56)
[2018-08-18] MEDS: FORMOTEROL FUMARATE 20 MCG/2 ML NEBU INHALATION SCH ×2 (07:14→19:55)
[2018-08-18] MEDS: BUDESONIDE 1 MG/2 ML NEBU INHALATION SCH ×2 (07:14→19:55)
[2018-08-18] MEDS: INSULIN ASPART (NovoLOG) 100 UNIT/ML VIAL SQ SCH ×4 (07:19→21:11)
[2018-08-18 09:05] LABS: Calcium 8.2 mg/dL (8.4-10.2); Potassium 3.6 mmol/L (3.5-5.1)
[2018-08-18] MEDS: PIPERACILLIN-TAZOBACTAM 3.375 GM in SODIUM CHLORIDE 0.9% 100 ML IVPB SCH ×2 (09:11→18:24)
[2018-08-18] MEDS: LORazepam 0.5 MG TAB PO PRN ×2 (09:12→21:09)
[2018-08-18] MEDS: HYDROcodone/APAP 10-325MG 1 EACH TAB PO PRN ×2 (09:12→21:09)
[2018-08-18] MEDS: FLUCONAZOLE 100 MG TAB PO SCH (09:18)
[2018-08-18] MEDS: ISOSORBIDE MONONITRATE ER 60 MG TAB.ER.24H PO SCH (09:18)
[2018-08-18] MEDS: THEOPHYLLINE 24 HOUR 200 MG CAP.ER.24H PO SCH (09:18)
[2018-08-18] MEDS: DILTIAZEM CD 120 MG CAP.ER.24H PO SCH (09:20)
[2018-08-18] MEDS: MULTIVITAMINS, THERA 1 EACH TAB PO SCH (09:23)
[2018-08-18] MEDS: FUROSEMIDE 10 MG/ML 2 ML VIAL IV SCH (09:24)
[2018-08-18] MEDS: guaiFENesin 600 MG TABLET.ER PO SCH ×2 (09:24→21:10)
[2018-08-18] MEDS: GABAPENTIN 400 MG CAP PO SCH ×3 (09:24→21:09)
[2018-08-18] MEDS: predniSONE 20 MG TAB PO SCH (09:24)
[2018-08-18 11:49] LABS: Glucose,Whole Blood 115 mg/dL (75-99)
--- NOTE | 2018-08-18 11:55 | P.PN ---
Subjective Progress Note Date: 08/18/18 Principal diagnosis: Acute exacerbation of chronic obstructive pulmonary disease. The patient is seen today Aug 18 2018 in follow-up on the regular medical floor. He is currently resting comfortably in bed. Able to lie quite flat. No worsening shortness of breath. Back to his baseline as far as his breathing is concerned. His abdominal discomfort has subsided as well. Tolerating clear liquids. Sodium 143. Potassium 3.6. Creatinine 1.10. Objective - Vital Signs Vital signs: Vital Signs Temp 97.6 F 08/18/18 05:00 Pulse 64 08/18/18 10:56 Resp 18 08/18/18 05:00 BP 122/66 08/18/18 05:00 Pulse Ox 95 08/18/18 07:17 Intake & Output 08/17/18 08/18/18 08/18/18 18:59 06:59 18:59 Intake Total 1200 2850 Output Total 950 Balance 250 2850 Weight 98.5 kg Intake: Intake, IV Titration 450 480 Amount Piperacillin-Tazobactam 3 50 .375 gm In Sodium Chloride 0.9% 100 ml @ 25 mls/hr IVPB Q8HR JUDY Rx# :[id number] Sodium Chloride 0.9% 1, 400 480 000 ml @ 50 mls/hr IV . Q20H JUDY Rx#:[id number] Oral 750 2370 Output: Urine 950 Other: Voiding Method Bedside Commode Toilet Toilet Urinal Bedside Commode Bedside Commode Urinal Urinal # Voids 1 - Exam GENERAL EXAM: Alert, pleasant, obese 83-year-old white male, currently on 3 L of oxygen. HEAD: Normocephalic/atraumatic. EYES: Normal reaction of pupils, equal size. Conjunctiva pink, sclera white. NOSE: Clear with pink turbinates. THROAT: No erythema or exudates. NECK: No masses, no JVD, no thyroid enlargement, no adenopathy. CHEST: No chest wall deformity. Symmetrical expansion. LUNGS: Equal air entry with faint crackles in the posterior bases. CVS: Regular rate and rhythm, normal S1 and S2, no gallops, no murmurs, no rubs ABDOMEN: Soft, non tender. No hepatosplenomegaly, normal bowel sounds, no guarding or rigidity. EXTREMITIES: No clubbing, no edema, no cyanosis, 2+ pulses and upper and lower extremities. MUSCULOSKELETAL: Muscle strength and tone normal. SPINE: No scoliosis or deformity SKIN: No rashes CENTRAL NERVOUS SYSTEM: No focal deficits, tone is normal in all 4 extremities. PSYCHIATRIC: Alert and oriented -3. Appropriate affect. Intact judgment and insight. - Labs CBC & Chem 7: 08/17/18 06:40 08/18/18 07:09 Labs: Abnormal Lab Results - Last 24 Hours (Table) 08/17/18 08/17/18 08/17/18 Range/Units 06:40 17:16 20:50 RBC 3.26 L (4.30-5.90) m/uL Hgb 10.5 L (13.0-17.5) gm/dL Hct 32.7 L (39.0-53.0) % MCV 100.3 H (80.0-100.0) fL Plt Count 93 L (150-450) k/uL Lymphocytes # 0.4 L (1.0-4.8) k/uL Carbon Dioxide (22-30) mmol/L BUN (9-20) mg/dL POC Glucose (mg/dL) 112 H 134 H (75-99) mg/dL Calcium (8.4-10.2) mg/dL 08/18/18 08/18/18 Range/Units 06:51 07:09 RBC (4.30-5.90) m/uL Hgb (13.0-17.5) gm/dL Hct (39.0-53.0) % MCV (80.0-100.0) fL Plt Count (150-450) k/uL Lymphocytes # (1.0-4.8) k/uL Carbon Dioxide 40 H (22-30) mmol/L BUN 22 H (9-20) mg/dL POC Glucose (mg/dL) 109 H (75-99) mg/dL Calcium 8.2 L (8.4-10.2) mg/dL Assessment and Plan Assessment: Assessment: #1. Acute exacerbation of chronic obstructive pulmonary disease complicated by purulent tracheobronchitis without katharina pneumonia. Recently hospitalized for COPD, and readmitted for an acute episode of respiratory distress, repeat chest x-rays in the emergency department were negative for any focal pneumonia or congestive heart failure. Status post bronchoscopy with BAL with Justine only. Improved. #2. Previous history of heavy tobacco use #3. Abdominal pain secondary to moderate colonic diverticulosis without diverticulitis definitely present. Currently on Zosyn. #4. Hypertension, hyperlipidemia #5. Previous history of pneumonia #6. History of benign prostatic hypertrophy #7. Rheumatoid arthritis #8. Chronic back pain syndrome with pain pump insertion #9. History of diverticulosis #10. Migraine headache #11. Restless leg syndrome Plan: The patient was seen and evaluated by Dr. Diaz. We'll continue the current treatment plan. On oral prednisone. Cleared for discharge once cleared by surgical services. I, the cosigning physician, performed a history & physical examination of the patient. Lungs sounds faint crackles in the posterior bases, diminished. Maintaining good O2 saturations in the 90s on 3 L/m per nasal cannula. I discussed the assessment and plan of care with my nurse practitioner, Hailey Oh. I attest to the above note as dictated by her.
[2018-08-18 17:18] LABS: Glucose,Whole Blood 148 mg/dL (75-99)
--- NOTE | 2018-08-18 17:31 | P.PN ---
Subjective Progress Note Date: 08/18/18 CHIEF COMPLAINT: Abdominal pain HISTORY OF PRESENT ILLNESS: The patient is a 83-year-old male with multiple medical comorbidities including chronic pain, morbid obesity, and abnormal computed tomography scan of intra-abdominal limited free air. He has been managed expectantly with NPO, limited diet and antibiotics given his high risk for surgery. He has tolerated liquid diet yesterday. No new or increased abdominal pain. "I want something to eat." ROS: No reports of nausea and vomiting. No bowel movements. No fevers or chills. No new chest pain. He has productive sputum PHYSICAL EXAM: VITAL SIGNS: Reviewed CONSTITUTIONAL: Well developed and in no acute distress. EYES: Conjuctivae without sclera icterus. Extraocular movements grossly intact. HEAD, EARS, NOSE, THROAT: Moist buccal mucosa. Head is atraumatic, normocephalic. Hears conversational speech. No nasal drainage. NECK: Supple. No thyroidomegaly. RESPIRATORY: Non-labored respirations. Wearing oxygen. CARDIOVASCULAR: Palpable 2+ radial pulses. Regular rate. Regular rhythm. ABDOMEN: Soft. No peritonitis. Palpable pain pump along the left lower quadrant. Non-tender at the bilateral upper abdomen, right lower abdomen. Noted pre-existing very dull tenderness along the left flank/at site of pain pump. MUSCULOSKELETAL: No gross deformity of the lower extremities noted. No clubbing. No cyanosis. SKIN: Good skin turgor. Well perfused. NEUROLOGIC: Cranial nerves I through XII grossly intact. No focal or lateralizi ng signs. PSYCH: Appropriate affect. Alert and oriented to person, place and time. CLINCAL LABS: White blood cell count normal STUDIES: Abdominal Xray image independently reviewed without free air. ASSESSMENT: 1. Abnormal CT of the abdomen of free air, now resolved 2. Chronic pain syndrome 3. History of pain pump 4. Left lower quadrant abdominal pain. PLAN: 1. Adjusting diet to regular 2. Continue antibiotics for pneumonia 3. No surgical intervention. 4. Will follow as needed. Objective - Vital Signs Vital signs: Vital Signs Temp 97.9 F 08/18/18 11:59 Pulse 66 08/18/18 16:15 Resp 18 08/18/18 11:59 BP 121/64 08/18/18 11:59 Pulse Ox 94 L 08/18/18 11:59 Intake & Output 0508/18/18 08/18/18 18:59 06:59 18:59 Intake Total 1200 2850 50 Output Total 950 Balance 250 2850 50 Weight 98.5 kg Intake: Intake, IV Titration 450 480 50 Amount Piperacillin-Tazobactam 3 50 50 .375 gm In Sodium Chloride 0.9% 100 ml @ 25 mls/hr IVPB Q8HR JUDY Rx# :[id number] Sodium Chloride 0.9% 1, 400 480 000 ml @ 50 mls/hr IV . Q20H JUDY Rx#:[id number] Oral 750 2370 Output: Urine 950 Other: Voiding Method Bedside Commode Toilet Toilet Urinal Bedside Commode Bedside Commode Urinal Urinal # Voids 1 - Labs CBC & Chem 7: 08/17/18 06:40 08/18/18 07:09 Labs: Abnormal Lab Results - Last 24 Hours (Table) 08/17/18 08/18/18 08/18/18 Range/Units 20:50 06:51 07:09 Carbon Dioxide 40 H (22-30) mmol/L BUN 22 H (9-20) mg/dL POC Glucose (mg/dL) 134 H 109 H (75-99) mg/dL Calcium 8.2 L (8.4-10.2) mg/dL 08/18/18 08/18/18 Range/Units 11:48 17:16 Carbon Dioxide (22-30) mmol/L BUN (9-20) mg/dL POC Glucose (mg/dL) 115 H 148 H (75-99) mg/dL Calcium (8.4-10.2) mg/dL Assessment and Plan (1) Diverticulosis Current Visit: Yes Status: Acute Code(s): K57.90 - DVRTCLOS OF INTEST, PART UNSP, W/O PERF OR ABSCESS W/O BLEED SNOMED Code(s): 823439219 (2) Acute exacerbation of chronic obstructive airways disease Current Visit: Yes Status: Acute Priority: High Code(s): J44.1 - CHRONIC O BSTRUCTIVE PULMONARY DISEASE W (ACUTE) EXACERBATION SNOMED Code(s): 305944648 (3) Pneumoperitoneum Current Visit: Yes Status: Acute Code(s): K66.8 - OTHER SPECIFIED DISORDERS OF PERITONEUM SNOMED Code(s): 56094336 (4) Systolic congestive heart failure Current Visit: Yes Status: Acute Code(s): I50.20 - UNSPECIFIED SYSTOLIC (CONGESTIVE) HEART FAILURE SNOMED Code(s): 61568018 (5) COPD (chronic obstructive pulmonary disease) Current Visit: No Status: Acute Code(s): J44.9 - CHRONIC OBSTRUCTIVE PULMONARY DISEASE, UNSPECIFIED SNOMED Code(s): 17124420 (6) High risk for readmission Current Visit: No Status: Acute Code(s): Z91.89 - OTH PERSONAL RISK FACTORS, NOT ELSEWHERE CLASSIFIED SNOMED Code(s): 113321954 (7) Morbid obesity due to excess calories Current Visit: Yes Status: Acute Code(s): E66.01 - MORBID (SEVERE) OBESITY DUE TO EXCESS CALORIES SNOMED Code(s): 793862201 (8) Steroid-dependent asthma with acute exacerbation Current Visit: Yes Status: Acute Code(s): J45.901 - UNSPECIFIED ASTHMA WITH (ACUTE) EXACERBATION SNOMED Code(s): 315461161 (9) Ischemic cardiomyopathy Current Visit: Yes Status: Acute Code(s): I25.5 - ISCHEMIC CARDIOMYOPATHY SNOMED Code(s): 763347895 (10) Urinary hesitancy due to benign prostatic hyperplasia Current Visit: Yes Status: Acute Code(s): N40.1 - BENIGN PROSTATIC HYPE RPLASIA WITH LOWER URINARY TRACT SYMP; R39.11 - HESITANCY OF MICTURITION SNOMED Code(s): 098822288892806 (11) Hypertensive heart disease Current Visit: Yes Status: Acute Code(s): I11.9 - HYPERTENSIVE HEART DISEASE WITHOUT HEART FAILURE SNOMED Code(s): 95737261 (12) Hyperthyroidism Current Visit: No Status: Acute Code(s): E05.90 - THYROTOXICOSIS, UNSP WITHOUT THYROTOXIC CRISIS OR STORM SNOMED Code(s): 34670123 (13) Restless leg syndrome Current Visit: No Status: Acute Code(s): G25.81 - RESTLESS LEGS SYNDROME SNOMED Code(s): 70105625
[2018-08-18 20:43] LABS: Glucose,Whole Blood 162 mg/dL (75-99)
[2018-08-18] MEDS: ATORVASTATIN 20 MG TAB PO SCH (21:10)
[2018-08-18] MEDS: DOXEPIN 25 MG CAP PO SCH (21:10)
[2018-08-18] MEDS: PANTOPRAZOLE 40 MG TABLET PO SCH (21:10)
[2018-08-18] MEDS: TAMSULOSIN 0.4 MG CAP.ER.24H PO SCH (21:10)
[2018-08-18] MEDS: MELATONIN 5 MG TABLET PO SCH (21:10)
[2018-08-18] MEDS: SENNOSIDES 8.6 MG TAB PO SCH (21:10)
[2018-08-18] MEDS: DONEPEZIL 10 MG TAB PO SCH (21:10)
[2018-08-18] MEDS: FINASTERIDE 5 MG TAB PO SCH (21:11)
--- NOTE | 2018-08-18 22:20 | PN ---
PROGRESS NOTE DATE OF SERVICE: 08/18/2018 PRESENTING COMPLAINT: Abdominal pain. INTERVAL HISTORY: The patient was initially admitted with severe COPD exacerbation, tracheobronchitis, status post bronchoscopy that showed severe justine. Patient developed abdominal pain and free air, felt to be microperforation. The patient was managed conservatively. Abdominal pain is greatly improved. Passing significant amount of flatus. Feeling much better, tolerating a diet. Patient also had adrenal insufficiency and was given stress doses of steroids which are now being tapered down. Patient is seen by Dr. Linton today. Diet has been advanced to regular. Overall patient is feeling much better, keen for his regular diet. REVIEW OF SYSTEMS: Done for constitutional, cardiovascular, GI, pulmonary; relevant findings as above. CURRENT MEDICATIONS: Reviewed. They include: 1. Prednisone 30 mg a day. 2. Diflucan. 3. IV Zosyn. PHYSICAL EXAMINATION: Temperature 97.9, pulse 59, respiration 18, blood pressure 120/64, pulse ox 94% on 2 L. GENERAL APPEARANCE: Sitting up. More comfortable. EYES: Pupils equal. Conjunctivae normal. NECK: JVD not raised. Mass not palpable. RESPIRATORY: Effort increased. LUNGS: Decreased breath sounds. CARDIOVASCULAR: First and second sounds normal. No edema. ABDOMEN: No tenderness. No guarding or rigidity. Liver and spleen not palpable. Pain pump in place. PSYCHIATRY: Alert and oriented x3. Mood and affect normal. INVESTIGATIONS: Potassium 3.6, BUN 22, creatinine 1.10. ASSESSMENT: 1. Acute chronic obstructive pulmonary disease exacerbation with acute tracheobronchitis with significant clinical improvement. Nearly back to his baseline. 2. Justine albicans on bronchial washings, status post bronchoscopy. 3. Gastroesophageal reflux disease. 4. Essential hypertension. 5. Hyperlipidemia. 6. Benign prostatic hypertrophy. 7. Chronic rheumatoid arthritis. 8. Hypothyroid. 9. Chronic hypoxic respiratory failure, underlying chronic obstructive pulmonary disease. 10.Acute hypoxic respiratory failure, present on admission. 11.Chronic colonic diverticulosis. 12.Mild cognitive impairment from underlying late-onset Alzheimer's dementia. 13.Restless legs syndrome. 14.Chronic gait dysfunction. Uses a cane and/or a walker. 15.Chronic pain syndrome, cause undetermined. Has a pain pump, followed by Dr. Hilliard. 16.Microperforation of the bowel with free air, now clinically much improved. PLAN: Dr. Linton advanced the patient to a regular diet. Will discontinue the IV Zosyn and switch to oral Augmentin. Patient can have a rapid taper of steroids over the next few days. Will also discontinue the IV fluids. If patient tolerates his diet today, patient can be discharged home tomorrow. SARA / ABUNDION: [id number] /
[2018-08-18] MEDS: AMOXIC-POT CLAV 875-125MG 1 EACH TAB PO SCH (22:55)
[2018-08-19] MEDS: IPRATROPIUM-ALBUTEROL 3 ML NEB INHALATION PRN ×2 (00:01→04:45)
[2018-08-19] MEDS: LEVOTHYROXINE 50 MCG TAB PO SCH (05:55)
[2018-08-19 06:50] LABS: Glucose,Whole Blood 110 mg/dL (75-99)
[2018-08-19] MEDS: BUDESONIDE 1 MG/2 ML NEBU INHALATION SCH ×2 (07:10→20:39)
[2018-08-19] MEDS: FORMOTEROL FUMARATE 20 MCG/2 ML NEBU INHALATION SCH ×2 (07:10→20:39)
[2018-08-19] MEDS: IPRATROPIUM-ALBUTEROL 3 ML NEB INHALATION SCH ×4 (07:10→20:39)
[2018-08-19] MEDS: INSULIN ASPART (NovoLOG) 100 UNIT/ML VIAL SQ SCH ×4 (08:05→21:56)
[2018-08-19] MEDS: predniSONE 20 MG TAB PO SCH (09:03)
[2018-08-19] MEDS: LORazepam 0.5 MG TAB PO PRN (09:04)
[2018-08-19] MEDS: guaiFENesin 600 MG TABLET.ER PO SCH ×2 (09:04→21:56)
[2018-08-19] MEDS: MULTIVITAMINS, THERA 1 EACH TAB PO SCH (09:04)
[2018-08-19] MEDS: HYDROcodone/APAP 10-325MG 1 EACH TAB PO PRN (09:05)
[2018-08-19] MEDS: THEOPHYLLINE 24 HOUR 200 MG CAP.ER.24H PO SCH (09:07)
[2018-08-19] MEDS: AMOXIC-POT CLAV 875-125MG 1 EACH TAB PO SCH ×2 (09:07→21:55)
[2018-08-19] MEDS: ISOSORBIDE MONONITRATE ER 60 MG TAB.ER.24H PO SCH (09:07)
[2018-08-19] MEDS: DILTIAZEM CD 120 MG CAP.ER.24H PO SCH (09:08)
[2018-08-19] MEDS: GABAPENTIN 400 MG CAP PO SCH ×3 (09:08→23:07)
[2018-08-19] MEDS: FLUCONAZOLE 100 MG TAB PO SCH (09:09)
[2018-08-19 11:14] LABS: Glucose,Whole Blood 123 mg/dL (75-99)
[2018-08-19] MEDS: PANTOPRAZOLE 40 MG/10 ML VIAL IVP SCH (17:22)
[2018-08-19] MEDS: HEPARIN SODIUM,PORCINE 5,000 UNIT/ML 1 ML VIAL SQ SCH ×2 (17:22→21:57)
[2018-08-19 17:25] LABS: Glucose,Whole Blood 150 mg/dL (75-99)
--- NOTE | 2018-08-19 17:43 | PN ---
PROGRESS NOTE DATE OF SERVICE: 08/19/2018 This 83-year-old gentleman who was admitted with COPD acute exacerbation acute purulent tracheobronchitis also had Justine albicans on brush bronchial washings. Patient also had microperforation of the bowel with free air, treated symptomatically. The patient is also started on diet. Surgery is following the patient closely. The patient had some abdominal pain and some vomiting today. The acute abdominal series done on 08/17 shows persistent bibasilar atelectasis and infiltrate noted. PAST MEDICAL HISTORY: Reviewed. REVIEW OF SYSTEMS: CARDIOVASCULAR SYSTEM: No angina or palpitations. RESPIRATORY SYSTEM: As mentioned earlier. GI: As mentioned earlier. : No dysuria. NERVOUS SYSTEM: No numbness or weakness. CURRENT MEDICATIONS: Current medications are reviewed and include: 1. [place] 10 mg b.i.d. p.r.n. 2. DuoNeb q.i.d. p.r.n. 3. Augmentin 875 mg p.o. b.i.d. 4. Lipitor 20 mg q.h.s. 5. Pulmicort. 6. Cardizem CD 120 mg. p.o. daily. 7. Aricept 10 mg q.h.s. 8. [place] 50 mg q.h.s. 9. Proscar. 10.Diflucan 100 mg p.o. daily. 11.Perforomist 20 b.i.d. 12.Neurontin 800 mg t.i.d. 13.Mucinex. 14.NovoLog. 15.Synthroid. 16.Ativan. 17.Melatonin. 18.Multivitamins. 19.Prednisone. 20.Requip. 21.Senokot. 22.Anthony-24. PHYSICAL EXAMINATION: Patient is alert and oriented x3. The pulse is 80, blood pressure is 124/69, respiration 17, temperature 98.2, pulse ox 94% on room air. HEENT: Conjunctivae normal. Oral mucosa moist. NECK: No jugular venous distention. No carotid bruit. No lymph node enlargement. CARDIOVASCULAR: S1, S2 muffled. RESPIRATORY: Breath sounds diminished at the bases. A few scattered rhonchi and crackles. ABDOMEN: Soft, obese, mild diffuse discomfort. No guarding. No rigidity. No mass palpable. No ascites. LEGS: No edema, no swelling. NERVOUS SYSTEM: No focal deficits. LABS: WBC 3.8, hemoglobin 10.5. Sodium 143, potassium 3.6. ASSESSMENT: 1. Chronic obstructive pulmonary disease acute exacerbation with acute purulent tracheobronchitis with acute respiratory distress with acute hypoxic respiratory failure. 2. Microperforation of the bowel with free air, clinically improving. 3. Justine albicans from bronchial washings, status bronchoscopy. 4. History of gastroesophageal reflux disease. 5. Hypertension. 6. Hyperlipidemia. 7. Benign prostatic hypertrophy. 8. Chronic rheumatoid arthritis. 9. Hypothyroidism. 10.Chronic pain syndrome. 11.Chronic hypoxic respiratory failure with underlying chronic obstructive pulmonary disease. 12.Acute hypoxic respiratory failure, present on admission. 13.Chronic colonic diverticulosis. 14.Mild cognitive impairment from underlying late onset Alzheimer's dementia. 15.Restless legs syndrome. 16.Chronic gait dysfunction. 17.Chronic pain syndrome on pain pump, followed by Dr. Hilliard. 18.FULL CODE. RECOMMENDATIONS AND DISCUSSION: This 83-year-old gentleman who presented with multiple complex medical issues, will monitor the patient closely. Continue the current medications and continue symptomatic treatment. The patient is started on diet. The microperforation is being managed medically. The patient had some vomiting today. I would recommend closely follow with surgery. Continue the rest of the medications including DVT prophylaxis. The prognosis is guarded because of multiple complex medical issues. Further recommendations to follow. See orders for details. MMODL / IJN: [id number] /
[2018-08-19 20:46] LABS: Glucose,Whole Blood 130 mg/dL (75-99)
[2018-08-19] MEDS: DONEPEZIL 10 MG TAB PO SCH (21:55)
[2018-08-19] MEDS: DOXEPIN 25 MG CAP PO SCH (21:55)
[2018-08-19] MEDS: ATORVASTATIN 20 MG TAB PO SCH (21:55)
[2018-08-19] MEDS: FINASTERIDE 5 MG TAB PO SCH (21:56)
[2018-08-19] MEDS: MELATONIN 5 MG TABLET PO SCH (21:57)
[2018-08-19] MEDS: SENNOSIDES 8.6 MG TAB PO SCH (21:57)
[2018-08-19] MEDS: TAMSULOSIN 0.4 MG CAP.ER.24H PO SCH (21:57)
[2018-08-20] MEDS: IPRATROPIUM-ALBUTEROL 3 ML NEB INHALATION PRN ×2 (00:36→03:44)
[2018-08-20] MEDS: LEVOTHYROXINE 50 MCG TAB PO SCH (05:59)
[2018-08-20 07:09] LABS: Glucose,Whole Blood 146 mg/dL (75-99)
[2018-08-20 07:40] LABS: Basophils % (A) 0 %; Eosinophils % (A) 0 %; HCT 34.2 % (39.0-53.0); HGB 10.2 gm/dL (13.0-17.5); Hypochromasia Slight; Lymphocytes # (A) 0.7 k/uL (1.0-4.8); Lymphocytes % (A) 11 %; MCH 29.9 pg (25.0-35.0); MCHC 29.7 g/dL (31.0-37.0); MCV 100.5 fL (80.0-100.0); Macrocytosis Slight; Mean Platelet Volume 7.2; Monocytes # (A) 0.2 k/uL (0-1.0); Monocytes % (A) 2 %; Neutrophils # (A) 5.5 k/uL (1.3-7.7); Neutrophils % (A) 85 %; Platelet Count 110 k/uL (150-450); RBC 3.41 m/uL (4.30-5.90); RDW 14.6 % (11.5-15.5); WBC 6.4 k/uL (3.8-10.6)
[2018-08-20] MEDS: predniSONE 20 MG TAB PO SCH (07:56)
[2018-08-20] MEDS: HEPARIN SODIUM,PORCINE 5,000 UNIT/ML 1 ML VIAL SQ SCH ×2 (07:58→21:06)
[2018-08-20] MEDS: PANTOPRAZOLE 40 MG/10 ML VIAL IVP SCH (07:58)
[2018-08-20] MEDS: guaiFENesin 600 MG TABLET.ER PO SCH ×2 (07:58→21:00)
[2018-08-20] MEDS: MULTIVITAMINS, THERA 1 EACH TAB PO SCH (07:58)
[2018-08-20] MEDS: GABAPENTIN 400 MG CAP PO SCH ×3 (07:58→20:59)
[2018-08-20] MEDS: AMOXIC-POT CLAV 875-125MG 1 EACH TAB PO SCH ×2 (07:59→21:00)
[2018-08-20] MEDS: THEOPHYLLINE 24 HOUR 200 MG CAP.ER.24H PO SCH (07:59)
[2018-08-20] MEDS: ISOSORBIDE MONONITRATE ER 60 MG TAB.ER.24H PO SCH (07:59)
[2018-08-20] MEDS: DILTIAZEM CD 120 MG CAP.ER.24H PO SCH (07:59)
[2018-08-20] MEDS: FLUCONAZOLE 100 MG TAB PO SCH (08:00)
[2018-08-20] MEDS: INSULIN ASPART (NovoLOG) 100 UNIT/ML VIAL SQ SCH ×4 (08:03→21:01)
[2018-08-20 08:09] LABS: Calcium 8.6 mg/dL (8.4-10.2); Potassium 4.1 mmol/L (3.5-5.1)
[2018-08-20] MEDS: BUDESONIDE 1 MG/2 ML NEBU INHALATION SCH ×2 (08:20→20:11)
[2018-08-20] MEDS: IPRATROPIUM-ALBUTEROL 3 ML NEB INHALATION SCH ×4 (08:20→20:11)
[2018-08-20] MEDS: FORMOTEROL FUMARATE 20 MCG/2 ML NEBU INHALATION SCH ×2 (08:21→20:11)
[2018-08-20] MEDS: LORazepam 0.5 MG TAB PO PRN ×2 (09:39→17:39)
[2018-08-20] MEDS: HYDROcodone/APAP 10-325MG 1 EACH TAB PO PRN ×2 (09:42→09:50)
[2018-08-20 12:53] LABS: Glucose,Whole Blood 286 mg/dL (75-99)
[2018-08-20 16:46] LABS: Glucose,Whole Blood 209 mg/dL (75-99)
--- NOTE | 2018-08-20 17:41 | XR ---
EXAMINATION TYPE: XR chest 1V portable DATE OF EXAM: 08/20/2018 COMPARISON: 08/17/2018 HISTORY: COPD. TECHNIQUE: Single frontal view of the chest is obtained. FINDINGS: There is some linear density at the lung bases. There is no heart failure. Heart size is n ormal. Thoracic aorta is atheromatous. IMPRESSION: There is some atelectasis at the lung bases that is improved on the right side and uncha nged on the left side compared to last exam.
[2018-08-20 20:03] LABS: Glucose,Whole Blood 183 mg/dL (75-99)
--- NOTE | 2018-08-20 20:23 | PN ---
PROGRESS NOTE . DATE OF SERVICE: 08/20/2018 This 83-year-old gentleman admitted with COPD acute exacerbation and purulent tracheobronchitis also had Justine albicans from the bronchial washings. The patient also had possible microperforation and the patient had vomiting and abdominal pain yesterday. The patient is feeling slightly better. Blood sugar is elevated and the cultures showed Justine albicans as mentioned earlier. PAST MEDICAL HISTORY: Reviewed. REVIEW OF SYSTEMS: CARDIOVASCULAR: No angina or palpitations. RESPIRATORY: As mentioned earlier. GI no nausea or vomiting. no dysuria. NERVOUS SYSTEM: No numbness or weakness. CURRENT MEDICATIONS: Reviewed and include: 1. [place] 10 mg b.i.d. p.r.n. 2. DuoNeb q.i.d. and p.r.n. 3. Augmentin 875 mg p.o. b.i.d. 4. Lipitor 20 mg q.h.s. 5. Pulmicort 1 mg b.i.d. 6. Cardizem CD 120 mg b.i.d. 7. Aricept 10 mg q.h.s. 8. Senokot 50 mg p.o. q.h.s. 9. Proscar 5 mg q.h.s. 10.Diflucan 100 mg p.o. daily. 11.Perforomist b.i.d. 12.Mucinex 1200 mg p.o. b.i.d. 13.Heparin 5000 subcu b.i.d. 14.NovoLog scale. 15.Imdur. 16.Synthroid 175 mcg p.o. daily. 17.Ativan 0.5 mg t.i.d. p.r.n. 18.Melatonin 5 mg p.o. q.h.s. 19.Multivitamins 1 p.o. daily. 20.Morphine pump. 21.Protonix 40 mg daily. 22.Prednisone 30 mg p.o. daily. 23.Phenergan. 24.Senokot 17.2 mg p.o. q.h.s. 25.Flomax 0.4 daily. 26.Anthony-24 200 mg p.o. daily. PHYSICAL EXAM: Patient is alert, oriented x3. Pulse is 55, blood pressure 130/76, respiration 18, temp 98.8, pulse ox 94% on room air. HEENT: Conjunctivae normal. Oral mucosa moist. NECK is no jugular venous distention. No carotid bruit. No lymph node enlargement. CARDIOVASCULAR SYSTEM: S1, S2 muffled. RESPIRATION: Breath sounds diminished in the bases. A few scattered rhonchi and crackles. Expiratory wheezing also present. ABDOMEN: Soft, obese, mild diffuse discomfort. Otherwise, no guarding, no rigidity. No mass palpable. LEGS: No edema. No swelling. NERVOUS SYSTEM: No focal deficits. LAB: WBC 6.3, hemoglobin 10.2, sodium 140. Potassium 4.1. Accu-Cheks noted. ASSESSMENT: 1. Chronic obstructive pulmonary disease exacerbation with acute purulent tracheobronchitis with acute respiratory distress with acute hypoxic respiratory failure present on admission. 2. Microperforation of the bowel with free air, clinically improving. 3. Justine albicans with bronchial washings, status post bronchoscopy. 4. History of gastroesophageal reflux disease. 5. Hypertension. 6. Hyperlipidemia. 7. History of benign prostatic hypertrophy. 8. Chronic rheumatoid arthritis. 9. Hypothyroidism. 10.Chronic pain syndrome. 11.Chronic hypoxic respiratory failure with underlying chronic obstructive pulmonary disease. 12.Acute hypoxic respiratory failure present on admission. 13.Chronic diverticulosis. 14.History of mild cognitive impairment with underlying late onset of dementia. 15.Restless legs syndrome. 16.Chronic gait dysfunction. 17.Chronic pain syndrome on pain pump followed by Dr. Hilliard. 18.FULL CODE. RECOMMENDATIONS AND DISCUSSION: Recommend to continue current medications, continue with monitoring, management. Symptomatic treatment. Otherwise, at this time, I recommend monitor the blood sugars closely. Otherwise, I would recommend continue with recommend to monitor the blood sugars closely. Hemoglobin A1c of previously. We will continue to monitor. Otherwise, diet has been advanced. The patient will be discharged in the next 24-48 hours if stable and with close outpatient followup if cleared by multiple consultants. I would repeat a chest x-ray for stability. See orders for details. MMODL / IJN: [id number] / MTDD
[2018-08-20] MEDS: MELATONIN 5 MG TABLET PO SCH (20:58)
[2018-08-20] MEDS: DONEPEZIL 10 MG TAB PO SCH (20:58)
[2018-08-20] MEDS: DOXEPIN 25 MG CAP PO SCH ×2 (20:58→21:00)
[2018-08-20] MEDS: FINASTERIDE 5 MG TAB PO SCH (20:58)
[2018-08-20] MEDS: ATORVASTATIN 20 MG TAB PO SCH (20:58)
[2018-08-20] MEDS: SENNOSIDES 8.6 MG TAB PO SCH (20:59)
[2018-08-20] MEDS: TAMSULOSIN 0.4 MG CAP.ER.24H PO SCH (21:00)
[2018-08-21] MEDS: LEVOTHYROXINE 50 MCG TAB PO SCH (04:56)
[2018-08-21 05:49] VITALS: BP 106/68; TEMP 98.1
[2018-08-21 06:56] LABS: Glucose,Whole Blood 108 mg/dL (75-99)
[2018-08-21] MEDS: IPRATROPIUM-ALBUTEROL 3 ML NEB INHALATION SCH ×2 (07:30→10:58)
[2018-08-21] MEDS ORDERED: PANTOPRAZOLE 40 MG TABLET PO SCH (07:30)
[2018-08-21] MEDS: BUDESONIDE 1 MG/2 ML NEBU INHALATION SCH (07:30)
[2018-08-21] MEDS: FORMOTEROL FUMARATE 20 MCG/2 ML NEBU INHALATION SCH (07:30)
[2018-08-21 07:34] VITALS: PULSE 84
[2018-08-21 08:21] LABS: Calcium 8.4 mg/dL (8.4-10.2)
[2018-08-21 08:26] LABS: Basophils % (A) 0 %; Eosinophils % (A) 0 %; HCT 33.8 % (39.0-53.0); Hypochromasia Slight; Lymphocytes # (A) 0.7 k/uL (1.0-4.8); Lymphocytes % (A) 14 %; MCH 29.9 pg (25.0-35.0); MCHC 29.6 g/dL (31.0-37.0); MCV 101.1 fL (80.0-100.0); Macrocytosis Slight; Mean Platelet Volume 7.7; Monocytes # (A) 0.1 k/uL (0-1.0); Monocytes % (A) 2 %; Neutrophils # (A) 4.3 k/uL (1.3-7.7); Neutrophils % (A) 82 %; Platelet Count 109 k/uL (150-450); RBC 3.34 m/uL (4.30-5.90); RDW 14.7 % (11.5-15.5); WBC 5.3 k/uL (3.8-10.6)
[2018-08-21] MEDS: INSULIN ASPART (NovoLOG) 100 UNIT/ML VIAL SQ SCH ×2 (08:27→12:43)
[2018-08-21] MEDS: predniSONE 20 MG TAB PO SCH (08:29)
[2018-08-21] MEDS: GABAPENTIN 400 MG CAP PO SCH (08:30)
[2018-08-21] MEDS: MULTIVITAMINS, THERA 1 EACH TAB PO SCH (08:30)
[2018-08-21] MEDS: HYDROcodone/APAP 10-325MG 1 EACH TAB PO PRN (08:30)
[2018-08-21] MEDS: HEPARIN SODIUM,PORCINE 5,000 UNIT/ML 1 ML VIAL SQ SCH (08:31)
[2018-08-21] MEDS: DILTIAZEM CD 120 MG CAP.ER.24H PO SCH (08:31)
[2018-08-21] MEDS: AMOXIC-POT CLAV 875-125MG 1 EACH TAB PO SCH (08:32)
[2018-08-21] MEDS: FLUCONAZOLE 100 MG TAB PO SCH (08:32)
[2018-08-21] MEDS: THEOPHYLLINE 24 HOUR 200 MG CAP.ER.24H PO SCH (08:32)
[2018-08-21] MEDS: ISOSORBIDE MONONITRATE ER 60 MG TAB.ER.24H PO SCH (08:32)
[2018-08-21] MEDS: guaiFENesin 600 MG TABLET.ER PO SCH (08:35)
[2018-08-21 09:34] VITALS: RESP 19
[2018-08-21 11:05] LABS: Glucose,Whole Blood 186 mg/dL (75-99)
--- NOTE | 2018-08-22 06:05 | DS ---
DISCHARGE SUMMARY DATE OF SERVICE: 08/21/2018 FINAL DIAGNOSES: 1. Chronic obstructive pulmonary disease acute exacerbation with acute purulent tracheobronchitis with acute respiratory distress as well as acute hypoxic respiratory failure, present on admission, improved. 2. Microperforation of the bowel and free air, clinically improved. 3. Justine albicans with bronchial washings, status post bronchoscopy. 4. History of gastroesophageal reflux disease. 5. Hypertension. 6. Hyperlipidemia. 7. History of benign prostatic hypertrophy. 8. History of chronic rheumatoid arthritis. 9. Hypothyroidism. 10.Chronic pain syndrome. 11.Chronic hypoxic respiratory failure with underlying chronic obstructive pulmonary disease. 12.Acute hypoxic respiratory failure, present on admission. 13.Chronic diverticulosis. 14.History of mild cognitive impairment with underlying late onset dementia possibly. 15.Restless legs syndrome. 16.Chronic gait dysfunction. 17.Chronic pain syndrome on pain pump, followed by Dr. Hilliard. 18.FULL CODE. DISCHARGE DISPOSITION: The patient will be discharged in stable condition with guarded prognosis. Total time taken 35 minutes. Discharge cleared by multiple consultants. HISTORY OF PRESENT ILLNESS: This 83-year-old gentleman with a past medical history of multiple medical problems admitted with COPD acute exacerbation as well as multiple other medical problems. Patient was treated with bronchodilators initially but subsequently patient suspected of microperforation, seen by Dr. Linton, treated symptomatically. Dr. Jones cleared the patient for discharged and as well as Surgery. On exam, vitals are stable. CARDIOVASCULAR: S1 and S2 muffled. ABDOMEN: Soft. NERVOUS SYSTEM: No focal deficits. DISCHARGE ADVICE: 1. Diet is cardiac, soft. 2. Activity limited until followup. 3. Follow up with primary physician, Dr. Elkins in 2 to 3 days. 4. Follow up with Dr. Linton and Dr. Diaz as recommended. Medications are: 1. Aricept 10 mg q.h.s. 2. Ativan 0.5 mg t.i.d. p.r.n. 3. Breo Ellipta 100/25 mcg 1 puff daily. 4. Cartia XT 120 mg daily. 5. DuoNeb q.i.d. 6. Flomax 0.4 q.h.s. 7. Gabapentin 800 mg t.i.d. 8. Imdur 60 mg p.o. daily. 9. K-Dur 10 mEq p.o. daily. 10.Lasix 20 mg p.o. daily. 11.Lipitor 20 mg q.h.s. 12.Morphine pain pump. 13.Mucinex 1200 mg p.o. b.i.d. 14.Multivitamins one p.o. daily. 15.Nitrostat 0.4 sublingual p.r.n. 16.Bud 10 mg b.i.d. p.r.n. 17.Omeprazole 40 mg q.h.s. 18.Proscar 5 mg p.o. q.h.s. 19.Requip 0.5 mg t.i.d. 20.Senokot 17.2 q.h.s. 21.Sinequan 50 mg q.h.s. 22.Synthroid 175 mcg p.o. daily. 23.Augmentin 875 p.o. b.i.d. 24.Diflucan 100 mg p.o. daily. 25.Melatonin 5 mg q.h.s. 26.Prednisone 40 mg daily for 3 days, 30 for 3 days, 20 for 3 days, 10 for 3 days. 27.Protonix 40 mg daily. 28.Anthony-24, 200 mg p.o. daily. Once again, the patient will be discharged in stable condition with guarded prognosis. MMODL / IJN: [id number] /
== END 2018-08-21 12:49 | disposition home health service (06) | DRG 189 ==
LOC: EC 18:36 → 2SICU 22:24 → 3NMEDONC 08-08 23:29 → UNDODISIN 08-18 09:34
PROVIDERS: ADMIT Hospitalist; ATTEND Hospitalist
PROC: 5A09457 Assistance with Respiratory Ventilation, 24-96 Consecutive Hours, Continuous Positive Airway Pressure (ICD-10-PCS; 2018-08-03)
PROC: 0BC48ZZ Extirpation of Matter from Right Upper Lobe Bronchus, Via Natural or Artificial Opening Endoscopic (ICD-10-PCS; 2018-08-10)
PROC: 0BC88ZZ Extirpation of Matter from Left Upper Lobe Bronchus, Via Natural or Artificial Opening Endoscopic (ICD-10-PCS; 2018-08-10)
PROC: 0BC58ZZ Extirpation of Matter from Right Middle Lobe Bronchus, Via Natural or Artificial Opening Endoscopic (ICD-10-PCS; 2018-08-10)
PROC: 0BC38ZZ Extirpation of Matter from Right Main Bronchus, Via Natural or Artificial Opening Endoscopic (ICD-10-PCS; 2018-08-10)
PROC: 0BC78ZZ Extirpation of Matter from Left Main Bronchus, Via Natural or Artificial Opening Endoscopic (ICD-10-PCS; 2018-08-10)
PROC: 0BC68ZZ Extirpation of Matter from Right Lower Lobe Bronchus, Via Natural or Artificial Opening Endoscopic (ICD-10-PCS; 2018-08-10)
PROC: 0BCB8ZZ Extirpation of Matter from Left Lower Lobe Bronchus, Via Natural or Artificial Opening Endoscopic (ICD-10-PCS; principal; 2018-08-10 12:00)
PROC: 05HF33Z Insertion of Infusion Device into Left Cephalic Vein, Percutaneous Approach (ICD-10-PCS; 2018-08-14)
DX: J96.21 Acute and chronic respiratory failure with hypoxia (principal); J44.0 Chronic obstructive pulmonary disease with (acute) lower respiratory infection; T17.590A Other foreign object in bronchus causing asphyxiation, initial encounter; B37.0 Candidal stomatitis; B37.89 Other sites of candidiasis; J45.901 Unspecified asthma with (acute) exacerbation; J44.1 Chronic obstructive pulmonary disease with (acute) exacerbation; J98.11 Atelectasis; E27.40 Unspecified adrenocortical insufficiency; I50.22 Chronic systolic (congestive) heart failure; I11.0 Hypertensive heart disease with heart failure; E66.01 Morbid (severe) obesity due to excess calories; K66.8 Other specified disorders of peritoneum; J98.09 Other diseases of bronchus, not elsewhere classified; I25.5 Ischemic cardiomyopathy; M06.9 Rheumatoid arthritis, unspecified; G30.1 Alzheimer's disease with late onset; F02.80 Dementia in other diseases classified elsewhere, unspecified severity, without behavioral disturbance, psychotic disturbance, mood disturbance, and anxiety; E03.9 Hypothyroidism, unspecified; R26.9 Unspecified abnormalities of gait and mobility; N40.1 Benign prostatic hyperplasia with lower urinary tract symptoms; R39.11 Hesitancy of micturition; J20.9 Acute bronchitis, unspecified; K59.00 Constipation, unspecified; M54.9 Dorsalgia, unspecified; E78.5 Hyperlipidemia, unspecified; K21.9 Gastro-esophageal reflux disease without esophagitis; F41.9 Anxiety disorder, unspecified; G89.4 Chronic pain syndrome; G43.909 Migraine, unspecified, not intractable, without status migrainosus; K57.30 Diverticulosis of large intestine without perforation or abscess without bleeding; H54.7 Unspecified visual loss; G25.81 Restless legs syndrome; Z86.010 Personal history of colon polyps; H26.9 Unspecified cataract; Z99.81 Dependence on supplemental oxygen; Z68.34 Body mass index [BMI] 34.0-34.9, adult; Z71.3 Dietary counseling and surveillance; Z79.890 Hormone replacement therapy; Z79.1 Long term (current) use of non-steroidal anti-inflammatories (NSAID); Z79.891 Long term (current) use of opiate analgesic; Z79.51 Long term (current) use of inhaled steroids; Z79.52 Long term (current) use of systemic steroids; Z79.899 Other long term (current) drug therapy; Z96.89 Presence of other specified functional implants; Z96.1 Presence of intraocular lens; Z98.41 Cataract extraction status, right eye; Z86.19 Personal history of other infectious and parasitic diseases; Z87.891 Personal history of nicotine dependence; Z87.01 Personal history of pneumonia (recurrent); Z89.022 Acquired absence of left finger(s); Z88.0 Allergy status to penicillin; Z88.8 Allergy status to other drugs, medicaments and biological substances; Z91.041 Radiographic dye allergy status; Z82.49 Family history of ischemic heart disease and other diseases of the circulatory system; Z80.1 Family history of malignant neoplasm of trachea, bronchus and lung; Z83.1 Family history of other infectious and parasitic diseases; Z83.79 Family history of other diseases of the digestive system; Z81.2 Family history of tobacco abuse and dependence; Z81.1 Family history of alcohol abuse and dependence
CPT/HCPCS: 31624; 36410; 36415; 71045; 74019; 74022; 74176; 76937; 80048; 80053; 80202; 82550; 83036; 83605; 83735; 83880; 84484; 85025; 85027; 85610; 85730; 87070; 87205; 88108; 88305; 89050; 93005; 94640; 94660; 94667; 94760; 96374; 99291

== ENCOUNTER 2018-09-01 17:51 | Observation (INO) | payer MEDICARE, BC ==
[2018-09-01] MEDS ORDERED: SODIUM CHLORIDE 0.9% 500 ML 500 ML IV STA (18:29)
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
[2018-09-01 18:48] LABS: Anisocytosis Slight; Basophils % (A) 1 %; Eosinophils # (A) 0.1 k/uL (0-0.7); Eosinophils % (A) 2 %; HCT 39.2 % (39.0-53.0); HGB 12.6 gm/dL (13.0-17.5); Lymphocytes # (A) 2.2 k/uL (1.0-4.8); Lymphocytes % (A) 38 %; MCH 31.1 pg (25.0-35.0); MCHC 32.1 g/dL (31.0-37.0); MCV 96.8 fL (80.0-100.0); Macrocytosis Slight; Mean Platelet Volume 7.5; Monocytes # (A) 0.3 k/uL (0-1.0); Monocytes % (A) 4 %; Neutrophils # (A) 3.1 k/uL (1.3-7.7); Neutrophils % (A) 53 %; RBC 4.05 m/uL (4.30-5.90); RDW 16.5 % (11.5-15.5); WBC 5.8 k/uL (3.8-10.6)
--- NOTE | 2018-09-01 18:48 | XR ---
EXAMINATION TYPE: XR chest 2V DATE OF EXAM: 09/01/2018 COMPARISON: 08/20/2018 HISTORY: Dizziness TECHNIQUE: Frontal and lateral views of the chest are obtained. FINDINGS: There is some linear density at the lung bases. Heart size is normal. There is no heart fa ilure. Costophrenic angles are fairly clear. IMPRESSION: Mild atelectasis at the lung bases not significantly different than last exam. Normal he art.
[2018-09-01 18:50] LABS: Albumin 3.8 g/dL (3.5-5.0); Calcium 9.4 mg/dL (8.4-10.2); Magnesium 2.1 mg/dL (1.6-2.3); Potassium 4.4 mmol/L (3.5-5.1); Total Bilirubin 0.5 mg/dL (0.2-1.3); Total Protein 7.2 g/dL (6.3-8.2)
[2018-09-01 18:53] LABS: INR 0.9 (<1.2); Prothrombin Time 9.6 sec (9.0-12.0)
[2018-09-01 18:55] LABS: Platelet Count 237 k/uL (150-450)
[2018-09-01] MEDS ORDERED: ACETAMINOPHEN TAB 325 MG TAB PO PRN (19:23)
[2018-09-01] MEDS ORDERED: NALOXONE 0.4 MG/ML 1 ML VIAL IV PRN (19:23)
[2018-09-01] MEDS ORDERED: NITROGLYCERIN SL TABS 0.4 MG TAB SUBLINGUAL PRN (19:24)
[2018-09-01] MEDS ORDERED: SODIUM CHLORIDE 0.9% 1,000 ML IV SCH (19:30)
[2018-09-01] MEDS: IPRATROPIUM-ALBUTEROL 3 ML NEB INHALATION SCH (19:43)
[2018-09-01] MEDS ORDERED: LORazepam 0.5 MG TAB PO PRN (20:37)
[2018-09-01] MEDS ORDERED: NON-FORMULARY DRUG (Omeprazole [Omeprazole] 40 MG) PO SCH (21:00)
[2018-09-01] MEDS: MORPHINE PAIN PUMP INTRATHECA SCH (21:10)
[2018-09-01] MEDS: TAMSULOSIN 0.4 MG CAP.ER.24H PO SCH (21:31)
[2018-09-01] MEDS: FINASTERIDE 5 MG TAB PO SCH (21:31)
[2018-09-01] MEDS: MELATONIN 5 MG TABLET PO SCH (21:31)
[2018-09-01] MEDS: DOXEPIN 25 MG CAP PO SCH (21:31)
[2018-09-01] MEDS: SENNOSIDES 8.6 MG TAB PO SCH (21:31)
[2018-09-01] MEDS: guaiFENesin 600 MG TABLET.ER PO SCH (21:31)
[2018-09-01] MEDS: DONEPEZIL 10 MG TAB PO SCH (21:31)
[2018-09-01] MEDS: GABAPENTIN 400 MG CAP PO SCH (21:32)
[2018-09-01] MEDS: ATORVASTATIN 20 MG TAB PO SCH (21:32)
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
[2018-09-01] MEDS: SODIUM CHLORIDE 0.9% 1,000 ML IV SCH (23:28)
[2018-09-02] MEDS: LEVOTHYROXINE 88 MCG TAB PO SCH (05:54)
[2018-09-02] MEDS: SODIUM CHLORIDE 0.9% 1,000 ML IV SCH ×3 (05:55→16:54)
[2018-09-02] MEDS ORDERED: HEPARIN SODIUM,PORCINE 5,000 UNIT/ML 1 ML VIAL SQ SCH (08:00)
[2018-09-02] MEDS: SYMBICORT 160-4.5 MCG INHALER INHALATION SCH ×2 (08:02→19:28)
[2018-09-02] MEDS: IPRATROPIUM-ALBUTEROL 3 ML NEB INHALATION SCH ×4 (08:02→19:28)
[2018-09-02] MEDS ORDERED: HYDROcodone/APAP 10-325MG 1 EACH TAB PO PRN (09:00)
[2018-09-02] MEDS: PANTOPRAZOLE 40 MG TABLET PO SCH (10:12)
[2018-09-02] MEDS: GABAPENTIN 400 MG CAP PO SCH ×4 (10:12→19:44)
[2018-09-02] MEDS: POTASSIUM CHLORIDE ER 10 MEQ TAB.ER.PRT PO SCH (10:12)
[2018-09-02] MEDS: guaiFENesin 600 MG TABLET.ER PO SCH ×2 (10:12→19:45)
[2018-09-02] MEDS: MULTIVITAMINS, THERA 1 EACH TAB PO SCH (10:13)
[2018-09-02] MEDS: ISOSORBIDE MONONITRATE ER 60 MG TAB.ER.24H PO SCH (10:14)
[2018-09-02] MEDS: THEOPHYLLINE 24 HOUR 200 MG CAP.ER.24H PO SCH (10:14)
[2018-09-02] MEDS: DILTIAZEM CD 120 MG CAP.ER.24H PO SCH (10:15)
[2018-09-02] MEDS: MELOXICAM 7.5 MG TAB PO SCH (10:15)
--- NOTE | 2018-09-02 11:07 | P.PN ---
Progress Note - Text Abnormal d-dimer Would recommend IV heparin Further workup for causes of elevated d-dimer including members him Patient has frequent PVCs from the right ventricle 2-D echo and Doppler study to look for RV enlargement Discussed with the nurse
[2018-09-02] MEDS ORDERED: HEPARIN SOD,PORK IN 0.45% NACL 25,000 UNIT in 0.45% NACL 1 250ML.BAG IV SCH (11:15)
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
--- NOTE | 2018-09-02 14:30 | NM ---
EXAMINATION TYPE: NM pul vent and perfuse DATE OF EXAM: 09/02/2018 COMPARISON: Chest x-ray 09/01/2018, prior nuclear medicine pulmonary ventilation/perfusion scan 2017 HISTORY: Elevated d-dimer TECHNIQUE: Utilizing inhalation of 66.9 mCi Tc 99m DTPA aerosol and intravenous injection of 5.2 mCi of Tc 99m MAA, ventilation and perfusion images are acquired post injection in multiple projections. FINDINGS: Homogenous radiotracer distribution is noted in the lungs. There is no evidence of mismatched defects . IMPRESSION: Low probability for pulmonary embolism
[2018-09-02] MEDS ORDERED: IPRATROPIUM-ALBUTEROL 3 ML NEB INHALATION PRN (15:53)
--- NOTE | 2018-09-02 16:33 | P.PN ---
Subjective Progress Note Date: 09/02/18 Principal diagnosis: Dizziness Patient was seen and examined. No acute events overnight. Patient reports dizziness and lightheadedness as he was sitting up on the side of the bed. States that he is on 3 L home O2 at bedtime. Denies any chest pain, shortness of breath or palpitations. No nausea or vomiting. No fever or chills. Objective - Vital Signs Vital signs: Vital Signs Temp 98.2 F 09/02/18 12:00 Pulse 80 09/02/18 15:26 Resp 18 09/02/18 12:00 BP 147/83 09/02/18 12:00 Pulse Ox 96 09/02/18 12:00 Intake & Output 09/01/18 09/02/18 09/02/18 18:59 06:59 18:59 Weight 99.79 kg Other: Voiding Method Toilet Toilet # Voids 1 - Exam General: [non toxic], [no distress], [appears at stated age] Derm: [warm], [dry] Head: [atraumatic], [normocephalic], [symmetric] Eyes: [EOMI], [no lid lag], [anicteric sclera] Mouth: [no lip lesion], [mucus membranes moist] Cardiovascular: [S1S2 reg], [no murmur], [positive DP pulse bilateral], Lungs: [CTA bilateral], [no rhonchi, no rales] , [no accessory muscle use] Abdominal: [soft], [ nontender to palpation], [no guarding], [no appreciable organomegaly] Ext: [no gross muscle atrophy], [no edema], [no contractures] Neuro: [no focal neuro deficits] Psych: [Alert], [oriented], [appropriate affect] - Labs CBC & Chem 7: 09/01/18 18:15 09/01/18 18:15 Labs: Abnormal Lab Results - Last 24 Hours (Table) 09/01/18 09/01/18 09/02/18 Range/Units 18:15 18:15 10:18 RBC 4.05 L (4.30-5.90) m/uL Hgb 12.6 L (13.0-17.5) gm/dL RDW 16.5 H (11.5-15.5) % D-Dimer 3.64 H (<0.60) mg/L FEU Creatinine 1.28 H (0.66-1.25) mg/dL Glucose 116 H (74-99) mg/dL ALT 16 L (21-72) U/L Assessment and Plan Assessment: Assessment and Plan Dizziness likely secondary to dysrhythmia with frequent PVCs versus dehydration Chronic upper respiratory failure on home oxygen and more Hypertension Hyperlipidemia Hypothyroidism Restless leg syndrome Chronic pain syndrome CKD stage III Frequent PVCs seen on telemetry. History of Lasix use. Troponin less than 0.012. D-dimer 3.64, VQ scan negative, PE ruled out. Plan: Trend Trop/EKG to rule out ACS. Continue normal saline at 140 mL per hour. Heparin drip started by cardiology for fears of PE. Follow orthostatic vitals. Telemetry monitoring. Follow-up echocardiogram. Follow-up cartilage recommendations. Fall precautions. Follow-up ED recommendations. Due to COPD. Plan: Continue Symbicort. Continue theophylline. DuoNeb scheduled and as needed for shortness of breath and wheezing. O2 per NC to maintain O2 saturation greater than 92%. BP 147/83. Plan: Continue diltiazem, Imdur. Monitor vitals, adjust medications as necessary. Lipid panel December 2016 shows total cholesterol 111, LDL 56, HDL 34. Plan: Continue Lipitor. TSH within normal limits. Plan: Continue Synthroid. Plan: Continue ropinirole. Plan: Continue Tylenol, gabapentin and meloxicam for pain management. Patient with intrathecal morphine pain pump. DVT prophylaxis: [Heparin drip] Discussed with: [Patient] Anticipated discharge: [1-2 days] Anticipated discharge place: [Home] A total of [30] minutes was spent on the care of this complex patient more than 50% of the time was spent in counseling and care coordination. Patient admitted for dizziness, dysrhythmia, cardiology consulted. He is pending clinical improvement.
[2018-09-02] MEDS: FINASTERIDE 5 MG TAB PO SCH (19:45)
[2018-09-02] MEDS: TAMSULOSIN 0.4 MG CAP.ER.24H PO SCH (19:45)
[2018-09-02] MEDS: MELATONIN 5 MG TABLET PO SCH (19:45)
[2018-09-02] MEDS: ATORVASTATIN 20 MG TAB PO SCH (19:46)
[2018-09-02] MEDS: DOXEPIN 25 MG CAP PO SCH (19:46)
[2018-09-02] MEDS: MORPHINE PAIN PUMP INTRATHECA SCH (19:46)
[2018-09-02] MEDS: DONEPEZIL 10 MG TAB PO SCH (19:46)
[2018-09-02] MEDS: SENNOSIDES 8.6 MG TAB PO SCH (19:46)
[2018-09-03] MEDS: LEVOTHYROXINE 88 MCG TAB PO SCH (06:36)
[2018-09-03] MEDS: PANTOPRAZOLE 40 MG TABLET PO SCH (06:36)
[2018-09-03] MEDS: IPRATROPIUM-ALBUTEROL 3 ML NEB INHALATION SCH ×4 (07:03→20:35)
[2018-09-03] MEDS: SYMBICORT 160-4.5 MCG INHALER INHALATION SCH ×2 (07:07→20:35)
[2018-09-03] MEDS ORDERED: FUROSEMIDE 10 MG/ML 4 ML VIAL IV STA (09:28)
[2018-09-03] MEDS: guaiFENesin 600 MG TABLET.ER PO SCH ×2 (09:35→20:31)
[2018-09-03] MEDS: POTASSIUM CHLORIDE ER 10 MEQ TAB.ER.PRT PO SCH (09:35)
[2018-09-03] MEDS: DILTIAZEM CD 120 MG CAP.ER.24H PO SCH (09:35)
[2018-09-03] MEDS: MULTIVITAMINS, THERA 1 EACH TAB PO SCH (09:35)
[2018-09-03] MEDS: MELOXICAM 7.5 MG TAB PO SCH (09:36)
[2018-09-03] MEDS: THEOPHYLLINE 24 HOUR 200 MG CAP.ER.24H PO SCH (09:36)
[2018-09-03] MEDS: ISOSORBIDE MONONITRATE ER 60 MG TAB.ER.24H PO SCH (09:36)
[2018-09-03] MEDS: GABAPENTIN 400 MG CAP PO SCH ×4 (09:36→20:31)
[2018-09-03 11:03] VITALS: RESP 20
[2018-09-03] MEDS ORDERED: MECLIZINE 12.5 MG TAB PO PRN (12:44)
--- NOTE | 2018-09-03 12:44 | P.PN ---
Subjective Progress Note Date: 09/03/18 Principal diagnosis: dizziness Patient was seen and examined. No acute events overnight. Patient complains of dizziness, described as lightheadedness as well as room spinning sensation, even when he is laying down. Patient reports decreased vision in his right eye due to an accident 30 years ago. Patient denies any issues with hearing. He denies any chest pain, shortness of breath or palpitations. No nausea or vomiting. No fever or chills. Objective - Vital Signs Vital signs: Vital Signs Temp 98.3 F 09/03/18 04:00 Pulse 74 09/03/18 11:18 Resp 20 09/03/18 08:00 BP 123/67 09/03/18 08:00 Pulse Ox 93 L 09/03/18 08:00 Intake & Output 09/02/18 09/03/18 09/03/18 18:59 06:59 18:59 Intake Total 30 110 Balance 30 110 Weight 105.3 kg Intake: IV 20 10 Invasive Line 1 20 10 Intake, IV Titration 10 Amount Sodium Chloride 0.9% 1, 10 000 ml @ 140 mls/hr IV . Q7H9M [facility] Rx#:[id number] Oral 100 Other: Voiding Method Toilet Toilet # Voids 2 - Exam General: [non toxic], [no distress], [appears at stated age] Derm: [warm], [dry] Head: [atraumatic], [normocephalic], [symmetric] Eyes: [EOMI], [no lid lag], [anicteric sclera] Mouth: [no lip lesion], [mucus membranes moist] Cardiovascular: [S1S2 reg], [no murmur], [positive DP pulse bilateral] Lungs: [CTA bilateral], [no rhonchi, no rales] , [no accessory muscle use] Abdominal: [soft], [ nontender to palpation], [no guarding], [no appreciable organomegaly] Ext: [no gross muscle atrophy], [no edema], [no contractures] Neuro: [no focal neuro deficits], [right eye decreased vision] Psych: [Alert], [oriented], [appropriate affect] - Labs CBC & Chem 7: 09/01/18 18:15 09/01/18 18:15 Assessment and Plan Assessment: Assessment and Plan Dizziness likely secondary to dysrhythmia with frequent PVCs versus dehydration Chronic hypoxic respiratory failure on home oxygen likely due to COPD Hypertension Hyperlipidemia Hypothyroidism Restless leg syndrome Chronic pain syndrome CKD stage III Frequent PVCs seen on telemetry. History of Lasix use. Troponin less than 0.0123, ACS ruled out. D-dimer 3.64, VQ scan negative, PE ruled out. Orthostats negative. Plan: DC IVF and encourage hydration by mouth, one time Lasix IV dose followed by oral starting tomorrow. Heparin drip was discontinued as PE is ruled out. Telemetry monitoring. Follow-up echocardiogram. Follow-up cardiology recommendations. Fall precautions. Follow-up PT recommendations. Consult Neurology to rule out Neurogenic causes of dizziness. Trial of meclizine. Due to COPD. Plan: Continue Symbicort. Continue theophylline. DuoNeb scheduled and as needed for shortness of breath and wheezing. O2 per NC to maintain O2 saturation greater than 92%. BP 123/67. Plan: Continue diltiazem, Imdur. Monitor vitals, adjust medications as necessary. Lipid panel December 2016 shows total cholesterol 111, LDL 56, HDL 34. Plan: Continue Lipitor. TSH within normal limits. Plan: Continue Synthroid. Plan: Continue ropinirole. Plan: Continue Tylenol, gabapentin and meloxicam for pain management. Patient with intrathecal morphine pain pump. DVT prophylaxis: [Heparin] Discussed with: [Patient] Anticipated discharge: [1-2 days] Anticipated discharge place: [Home] A total of [30] minutes was spent on the care of this complex patient more than 50% of the time was spent in counseling and care coordination. Patient admitted for dizziness, dysrhythmia, cardiology consulted. Echocardiogram pending. Neurology consulted. PT consulted Patient has gained 5 kg since admission likely due to IVF. One dose of IV Lasix today followed by oral tomorrow.
[2018-09-03] MEDS: SODIUM CHLORIDE 0.9% 1,000 ML IV SCH (12:56)
--- NOTE | 2018-09-03 13:36 | P.PN ---
Subjective Progress Note Date: 09/03/18 Principal diagnosis: Dizziness This is an 83-year-old gentleman with a past medical history significant for chronic hypoxic respiratory failure on oxygen at home, hypertension, and dyslipidemia, was admitted to the hospital with dizziness. The EKG showed sinus rhythm with frequent PVCs. The d-dimer came in to be elevated but subsequently a VQ scan was performed and came in to be at low probity for PE. The patient did not have any symptoms of chest pain or chest discomfort nor shortness of breath. An echocardiogram was done and is in process to be read. On follow-up with him today, 09/03/2018, he denies any symptoms of chest pain or discomfort but he continues to have dizziness and lightheadedness mainly was seen with his head. I do feel that the dizziness is likely to be noncardiac. We will follow-up on the echocardiogram which was performed earlier today. Objective - Vital Signs Vital signs: Vital Signs Temp 98.3 F 09/03/18 04:00 Pulse 90 09/03/18 12:00 Resp 20 09/03/18 12:00 BP 137/68 09/03/18 12:00 Pulse Ox 93 L 09/03/18 12:00 Intake & Output 09/02/18 09/03/18 09/03/18 18:59 06:59 18:59 Intake Total 30 110 Balance 30 110 Weight 105.3 kg Intake: IV 20 10 Invasive Line 1 20 10 Intake, IV Titration 10 Amount Sodium Chloride 0.9% 1, 10 000 ml @ 140 mls/hr IV . Q7H9M [facility] Rx#:[id number] Oral 100 Other: Voiding Method Toilet Toilet # Voids 2 1 - Constitutional General appearance: Present: no acute distress - Respiratory Respiratory: bilateral: CTA - Cardiovascular Rhythm: regular Heart sounds: normal: S1, S2 - Labs CBC & Chem 7: 09/01/18 18:15 09/01/18 18:15 Assessment and Plan Assessment: Assessment #1 symptoms of dizziness and lightheadedness #2 cardiac arrhythmia in the term of PVCs #3 hypertension #4 diverticulosis Plan #1 rule out electrolytes imbalance #2 assess the LV function, we'll follow-up on the echo #3 follow-up with the patient Thank you for allowing us participate in his care
[2018-09-03 14:42] LABS: Calcium 9.1 mg/dL (8.4-10.2); Magnesium 1.8 mg/dL (1.6-2.3); Potassium 4.7 mmol/L (3.5-5.1)
--- NOTE | 2018-09-03 14:54 | ECHOF ---
Referral Reason:PVC's, dizziness MEASUREMENTS -------- HEIGHT: 170.2 cm WEIGHT: 99.8 kg BP: RVIDd: 3.3 cm (< 3.3) IVSd: 1.0 cm (0.6 - 1.1) LVIDd: 5.0 cm (3.9 - 5.3) LVPWd: 1.2 cm (0.6 - 1.1) IVSs: 1.3 cm LVIDs: 3.4 cm LVPWs: 2.0 cm LAESV Index (A-L): 29.79 ml/m Ao Diam: 3.5 cm (2.0 - 3.7) AV Cusp: 2.1 cm (1.5 - 2.6) LA Diam: 4.4 cm (2.7 - 3.8) MV EXCURSION: 12.842 mm (> 18.000) MV EF SLOPE: 50 mm/s (70 - 150) EPSS: 1.2 cm MV E Kishore: 0.68 m/s MV DecT: 269 ms MV A Kishore: 0.97 m/s MV E/A Ratio: 0.70 RAP: 5.00 mmHg RVSP: 13.69 mmHg FINDINGS -------- Sinus rhythm with extra systolic beats. This was a technically good study. The left ventricular size is normal. Left ventricular wall thickness is normal. Overall left vent ricular systolic function is low-normal with, an EF between 50 - 55 %. The right ventricle is normal in size. Left atrium is mildly dilated by volume. The right atrial size is normal. Interatrial and interventricular septum intact. The aortic valve is trileaflet and appears structurally normal. The mitral valve leaflets are mildly thickened. There is trace mitral regurgitation. Trace tricuspid regurgitation present. There is no evidence of pulmonary hypertension. The right ventricular systolic pressure, as measured by Doppler, is 13.69mmHg. There is no pulmonic regurgitation present. The aortic root size is normal. The inferior vena cava was not well visualized. There is no pericardial effusion. CONCLUSIONS -------- 1. Sinus rhythm with extra systolic beats. 2. This was a technically good study. 3. The left ventricular size is normal. 4. Left ventricular wall thickness is normal. 5. Overall left ventricular systolic function is low-normal with, an EF between 50 - 55 %. 6. The right ventricle is normal in size. 7. Left atrium is mildly dilated by volume. 8. The right atrial size is normal. 9. Interatrial and interventricular septum intact. 10. The aortic valve is trileaflet and appears structurally normal. 11. The mitral valve leaflets are mildly thickened. 12. There is trace mitral regurgitation. 13. Trace tricuspid regurgitation present. 14. There is no evidence of pulmonary hypertension. 15. The right ventricular systolic pressure, as measured by Doppler, is 13.69mmHg. 16. There is no pulmonic regurgitation present. 17. The aortic root size is normal. 18. The inferior vena cava was not well visualized. 19. There is no pericardial effusion. INTERNET SOURCER: Jenna Bartholomew RDCS
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
--- NOTE | 2018-09-03 16:43 | CT ---
EXAMINATION TYPE: CT brain wo con DATE OF EXAM: 09/03/2018 COMPARISON: 01/21/2017 INDICATION: Dizziness, rule out mass DLP: 1113.4 mGycm, Automated exposure control for dose reduction was used. CONTRAST: None CT of the brain is performed utilizing 3 mm thick sections through the posterior fossa and 3 mm thick sections through the remaining calvarium. Study is performed within 24 hours of arrival to the hosp [facility]. No abnormal hyperdensity is present to suggest an acute intracranial hemorrhage. No mass lesion is evident. No acute infarcts are evident. Very minimal periventricular white matter ischemic type changes may be present Ventricles and sulci are mildly for the patient age. There is opacification of a posterior right ethmoid air cell. IMPRESSIONS: 1. Mild atrophy with mild chronic appearing periventricular ischemic change. 2. No acute intracranial process
--- NOTE | 2018-09-03 19:06 | US ---
EXAMINATION TYPE: US carotid duplex BILAT DATE OF EXAM: 09/03/2018 COMPARISON: NONE CLINICAL HISTORY: Dizziness, vertigo. Dizzy, recently hit his head and episodes started shortly after EXAM MEASUREMENTS: RIGHT: Peak Systolic Velocity (PSV) cm/sec ----- Right CCA: 60.7 ----- Right ICA: 54.0 ----- Right ECA: 104.3 ICA/CCA ratio: 0.9 RIGHT: End Diastole cm/sec ----- Right CCA: 18.8 ----- Right ICA: 13.0 ----- Right ECA: 17.1 LEFT: Peak Systolic Velocity (PSV) cm/sec ----- Left CCA: 56.4 ----- Left ICA: 62.1 ----- Left ECA: 92.7 ICA/CCA ratio: 1.1 LEFT: End Diastole cm/sec ----- Left CCA: 17.1 ----- Left ICA: 20.9 ----- Left ECA: 16.8 VERTEBRALS (direction of flow): Right Vertebral: Antegrade Left Vertebral: not seen Rhythm: Normal Very challenging patient to scan due to short, large neck and patient would not stop talking even aft er being told not to. Mild homogeneous plaque with no stenosis seen. IMPRESSION: 1. Atheromatous plaquing Without significant flow-limiting stenosis. 2. Exam is limited due to patient cooperation. Criteria for Assigning % of Stenosis / Diameter reduction (Estimation based on the indirect measurements of the internal carotid artery velocities (ICA PSV). 1. Normal (no stenosis)=ICA PSV < 125 cm/s: ratio < 2.0: ICA EDV<40 cm/s. 2. Less than 50% stenosis=ICA PSV < 125 cm/s: ratio < 2.0: ICA EDV<40 cm/s. 3. 50 to 69% stenosis=ICA PSV of 125 to 230 cm/s: ration 2.0 ? 4.0: ICA EDV 40-100 cm/s. 4. Greater than 70% stenosis to near occlusion= ICA PSV > 230 cm/s: ratio > 4.0: ICA EDV > 100 cm/s. 5. Near occlusion= ICA PSV velocities may be low or undetectable: variable ratio and ICA EDV. 6. Total occlusion=unable to detect flow.
[2018-09-03] MEDS: FINASTERIDE 5 MG TAB PO SCH (20:31)
[2018-09-03] MEDS: TAMSULOSIN 0.4 MG CAP.ER.24H PO SCH (20:31)
[2018-09-03] MEDS: SENNOSIDES 8.6 MG TAB PO SCH (20:31)
[2018-09-03] MEDS: DONEPEZIL 10 MG TAB PO SCH (20:31)
[2018-09-03] MEDS: ATORVASTATIN 20 MG TAB PO SCH (20:31)
[2018-09-03] MEDS: DOXEPIN 25 MG CAP PO SCH (20:31)
[2018-09-03] MEDS: MELATONIN 5 MG TABLET PO SCH (20:31)
[2018-09-03] MEDS: HEPARIN SODIUM,PORCINE 5,000 UNIT/ML 1 ML VIAL SQ SCH (20:32)
[2018-09-03] MEDS: MORPHINE PAIN PUMP INTRATHECA SCH (21:37)
[2018-09-04] MEDS: LEVOTHYROXINE 88 MCG TAB PO SCH (06:42)
[2018-09-04] MEDS: PANTOPRAZOLE 40 MG TABLET PO SCH (06:42)
[2018-09-04] MEDS: IPRATROPIUM-ALBUTEROL 3 ML NEB INHALATION SCH ×4 (09:02→20:09)
[2018-09-04] MEDS: SYMBICORT 160-4.5 MCG INHALER INHALATION SCH ×2 (09:02→20:10)
[2018-09-04] MEDS: POTASSIUM CHLORIDE ER 10 MEQ TAB.ER.PRT PO SCH (10:43)
[2018-09-04] MEDS: THEOPHYLLINE 24 HOUR 200 MG CAP.ER.24H PO SCH (10:43)
[2018-09-04] MEDS: MELOXICAM 7.5 MG TAB PO SCH (10:43)
[2018-09-04] MEDS: GABAPENTIN 400 MG CAP PO SCH ×4 (10:43→21:40)
[2018-09-04] MEDS: guaiFENesin 600 MG TABLET.ER PO SCH ×2 (10:43→21:40)
[2018-09-04] MEDS: FUROSEMIDE 20 MG TAB PO SCH (10:44)
[2018-09-04] MEDS: DILTIAZEM CD 120 MG CAP.ER.24H PO SCH (10:44)
[2018-09-04] MEDS: HEPARIN SODIUM,PORCINE 5,000 UNIT/ML 1 ML VIAL SQ SCH ×2 (10:44→21:40)
[2018-09-04] MEDS: ISOSORBIDE MONONITRATE ER 60 MG TAB.ER.24H PO SCH (10:44)
[2018-09-04] MEDS: MULTIVITAMINS, THERA 1 EACH TAB PO SCH (10:44)
--- NOTE | 2018-09-04 13:10 | P.PN ---
Subjective Progress Note Date: 09/04/18 Principal diagnosis: Dizziness This is an 83-year-old gentleman with a past medical history significant for chronic hypoxic respiratory failure on oxygen at home, hypertension, and dyslipidemia, was admitted to the hospital with dizziness. The EKG showed sinus rhythm with frequent PVCs. The d-dimer came in to be elevated but subsequently a VQ scan was performed and came in to be at low probity for PE. The echocardiogram showed normal LV function without any significant valvular abnormalities. The patient was seen by the neurology service regarding the dizziness and he was diagnosed with labyrinthitis. The computed tomography scan of the brain showed no acute abnormalities. The carotid duplex study showed no hemodynamically significant stenosis On follow-up with the patient today, 09/04/2018, he continues to have dizziness and lightheadedness without syncope. No chest pain or chest discomfort. No shortness of breath. He continues to be in sinus rhythm with ectopies. His ectopic rhythm need to be addressed probably as an outpatient. The dizziness is likely noncardiac. Objective - Vital Signs Vital signs: Vital Signs Temp 97.6 F 09/04/18 04:00 Pulse 104 H 09/04/18 12:52 Resp 20 09/04/18 08:00 BP 114/54 09/04/18 08:00 Pulse Ox 100 09/04/18 08:00 Intake & Output 09/03/18 09/04/18 09/04/18 18:59 06:59 18:59 Intake Total 110 230 Balance 110 230 Weight 103.7 kg Intake: IV 10 Invasive Line 1 10 Oral 100 230 Other: Voiding Method Toilet # Voids 1 1 - Constitutional General appearance: Present: no acute distress - Respiratory Respiratory: bilateral: CTA - Cardiovascular Rhythm: regular Heart sounds: normal: S1, S2 - Labs CBC & Chem 7: 09/01/18 18:15 09/03/18 14:17 Labs: Abnormal Lab Results - Last 24 Hours (Table) 09/03/18 Range/Units 14:17 Chloride 108 H (98-107) mmol/L Glucose 112 H (74-99) mg/dL Assessment and Plan Assessment: Assessment #1 symptoms of dizziness and lightheadedness #2 cardiac arrhythmia in the term of PVCs #3 hypertension #4 diverticulosis Plan #1 rule out electrolytes imbalance #2 assess the LV function, we'll follow-up on the echo #3 follow-up with the patient Thank you for allowing us participate in his care
--- NOTE | 2018-09-04 15:22 | P.PN ---
Subjective Progress Note Date: 09/04/18 Principal diagnosis: dizziness Patient is an 83-year-old male with a past medical history of COPD, hypertension, dyslipidemia, rheumatoid arthritis, chronic pain with pain pump, migraines, and diverticulosis who presented to the hospital with complaints of dizziness. Apparently has home health care nursing been out and noticed that his heart rate was ranging between bradycardia and tachycardia and he was reporting dizziness. His PCP was contacted who recommended coming to the hospital for further evaluation. In the emergency department he underwent an EKG which showed frequent PVCs but was otherwise normal. His initial vital signs were within normal limits. Hemoglobin was 12.6 which is above normal for him. Creatinine is 1.28 which is at or near his baseline. He is admitted for further workup of dizziness. He was seen by Dr. Parker who recommended a 2-D echocardiogram which showed an ejection fraction of 50-55%, and no signs of significant valvular dysfunction. He was found have an elevated d-dimer and underwent a VQ scan which showed low probability of PE. He had orthostatic vitals checked which were within normal limits. Cardiology felt that this was not a cardiac dizziness. Neurology was consulted. They felt this was likely labyrinthitis. Carotid Dopplers did not show any significant disease, and head CT showed no acute process. Patient seen and examined at bedside. He states he is still having some dizziness when standing, and is also aware when not moving but worse with exertion. He denies any chest pain, shortness breath, nausea, or vomiting. We discussed him going to rehab for a short amount of time, however he is adamantly against this. He states his daughter and son-in-law are at home and help take care of him. He also has home health set up already. Objective - Vital Signs Vital signs: Vital Signs Temp 98.0 F 09/04/18 12:00 Pulse 100 09/04/18 13:11 Resp 20 09/04/18 12:00 BP 119/74 09/04/18 12:00 Pulse Ox 92 L 09/04/18 12:00 Intake & Output 09/03/18 09/04/18 09/04/18 18:59 06:59 18:59 Intake Total 110 230 480 Balance 110 230 480 Weight 103.7 kg Intake: IV 10 Invasive Line 1 10 Oral 100 230 480 Other: Voiding Method Toilet # Voids 1 1 2 - Exam General: non toxic, no distress, appears at stated age Derm: warm, dry Head: atraumatic, normocephalic, symmetric Eyes: EOMI, no lid lag, anicteric sclera Mouth: no lip lesion, mucus membranes moist Cardiovascular: S1S2 reg, no murmur, positive posterior tibial pulse bilateral, Lungs: CTA bilateral, no rhonchi, no rales , no accessory muscle use Abdominal: soft, nontender to palpation, no guarding, no appreciable organomegaly Ext: no gross muscle atrophy, trace edema, no contractures Neuro: CN II-XI grossly intact, no focal neuro deficits Psych: Alert, oriented, appropriate affect - Labs CBC & Chem 7: 09/01/18 18:15 09/03/18 14:17 Assessment and Plan Assessment: Vertigo, likely secondary to labyrinthitis -Head CT negative, carotid Dopplers negative, echocardiogram negative, ort hostatic vitals negative -Symptomatic treatment with Antivert as needed -Plan on discharge home if okay with neurology with home health, PT, OT, and nursing -Discussed with patient at length that some of his dizziness may be secondary to medications as he is on multiple medications that are associated with dizziness including Burton, Aricept, Ativan, doxepin, and has a morphine pain pump. He has not inclined to paired down his medications at this time. - check theophylline levels Cardiac arrhythmia multiple PVCs -No further workup necessary Hypertension, controlled -Cardizem, Lasix, Imdur Chronic kidney disease stage III - at baseline - limit additional nephrotoxic agents Dementia -Aricept Chronic pain syndrome -Has pain pump inserted, continue with Burton, Neurontin, Mobic COPD -Continue with bronchodilators and theophylline Chronic: Dyslipidemia Hypothyroidism Restless leg syndrome DVT prophylaxis: Heparin Discussed with: Pt, cardio, nursing Anticipated discharge: in AM Anticipated discharge place: home with home health, patient refuses SNF A total of 35 minutes was spent on the care of this complex patient more than 50% of the time was spent in counseling and care coordination.
--- NOTE | 2018-09-04 15:34 | P.PN ---
Subjective Progress Note Date: 09/04/18 Patient states dizziness is better, but still persistent at low grade level. No new focal symptoms. Hemoglobin A1c 6.9 on 08/09/2018. Objective - Vital Signs Vital signs: Vital Signs Temp 98.0 F 09/04/18 12:00 Pulse 100 09/04/18 13:11 Resp 20 09/04/18 12:00 BP 119/74 09/04/18 12:00 Pulse Ox 92 L 09/04/18 12:00 Intake & Output 09/03/18 09/04/18 09/04/18 18:59 06:59 18:59 Intake Total 110 230 480 Balance 110 230 480 Weight 103.7 kg Intake: IV 10 Invasive Line 1 10 Oral 100 230 480 Other: Voiding Method Toilet # Voids 1 1 2 - Exam Essentially unchanged. - Labs CBC & Chem 7: 09/01/18 18:15 09/03/18 14:17 Assessment and Plan Assessment: * Vertigo, probably due to labyrinthitis. Patient is currently suffering from bronchitis. * Hypertension Plan: * Patient's vertigo is likely related to labyrinthitis. CT head showed no acute process. However there is some ethmoid sinus disease on the right side with opacification of some ethmoid air cells. May benefit from a course of antibiotics. Continue meclizine. * Carotid Doppler showed no significant stenosis. There is mild atheromatous plaque. * Patient had normal echo on 09/02/2018, with EF 50-55%. Left ventricle size is normal. Interatrial and interventricular septum intact. * Consider starting aspirin 81 mg daily if no medical contraindications. * Neurologically clear otherwise.
[2018-09-04] MEDS: MORPHINE PAIN PUMP INTRATHECA SCH (21:31)
[2018-09-04] MEDS: DOXEPIN 25 MG CAP PO SCH (21:39)
[2018-09-04] MEDS: DONEPEZIL 10 MG TAB PO SCH (21:40)
[2018-09-04] MEDS: ATORVASTATIN 20 MG TAB PO SCH (21:40)
[2018-09-04] MEDS: MELATONIN 5 MG TABLET PO SCH (21:40)
[2018-09-04] MEDS: TAMSULOSIN 0.4 MG CAP.ER.24H PO SCH (21:40)
[2018-09-04] MEDS: FINASTERIDE 5 MG TAB PO SCH (21:40)
[2018-09-04] MEDS: SENNOSIDES 8.6 MG TAB PO SCH (21:40)
[2018-09-05] MEDS: PANTOPRAZOLE 40 MG TABLET PO SCH (06:38)
[2018-09-05] MEDS: LEVOTHYROXINE 88 MCG TAB PO SCH (06:38)
[2018-09-05] MEDS: MULTIVITAMINS, THERA 1 EACH TAB PO SCH (08:47)
[2018-09-05] MEDS: ISOSORBIDE MONONITRATE ER 60 MG TAB.ER.24H PO SCH (08:47)
[2018-09-05] MEDS: MELOXICAM 7.5 MG TAB PO SCH (08:47)
[2018-09-05] MEDS: guaiFENesin 600 MG TABLET.ER PO SCH (08:47)
[2018-09-05] MEDS: GABAPENTIN 400 MG CAP PO SCH (08:48)
[2018-09-05] MEDS: FUROSEMIDE 20 MG TAB PO SCH (08:48)
[2018-09-05] MEDS: DILTIAZEM CD 120 MG CAP.ER.24H PO SCH (08:49)
[2018-09-05] MEDS: HEPARIN SODIUM,PORCINE 5,000 UNIT/ML 1 ML VIAL SQ SCH (08:50)
[2018-09-05] MEDS: SYMBICORT 160-4.5 MCG INHALER INHALATION SCH (09:00)
[2018-09-05] MEDS: IPRATROPIUM-ALBUTEROL 3 ML NEB INHALATION SCH (09:00)
[2018-09-05 09:36] VITALS: BP 117/68; PULSE 114; TEMP 98.1
--- NOTE | 2018-09-05 09:48 | P.DS ---
Providers Date of admission: 09/01/18 19:23 Expected date of discharge: 09/05/18 Attending physician: Yolis Gonzales MD Consults: 09/01/18 19:24 Consult Physician Routine Consulting Provider: Leodan Tran Consult Reason/Comments: dysrhythmia Do you want consulting provider notified?: Yes 09/03/18 12:37 Consult Physician Routine Consulting Provider: Parvin Guerrero Consult Reason/Comments: Dizziness Do you want consulting provider notified?: Yes Primary care physician: Noble Elkins Hospital Course: Discharge Diagnosis: Vertigo, central and cardiac causes ruled out Probable viral labyrinthitis Polypharmacy Multiple PVCs- no malignant arrhythmias HTN CKD III Mild dementia COPD Chronic pain syndrome Dyslipidemia Hypothyroidism Restless leg syndrome Hospital Course: Patient is an 83-year-old male with a past medical history of COPD, hypertension, dyslipidemia, rheumatoid arthritis, chronic pain with pain pump, migraines, and diverticulosis who presented to the hospital with complaints of dizziness. Apparently has home health care nursing been out and noticed that his heart rate was ranging between bradycardia and tachycardia and he was reporting dizziness. His PCP was contacted who recommended coming to the hospital for further evaluation. In the emergency department he underwent an EKG which showed frequent PVCs but was otherwise normal. His initial vital signs were within normal limits. Hemoglobin was 12.6 which is above normal for him. Creatinine is 1.28 which is at or near his baseline. He is admitted for further workup of dizziness. He was seen by Dr. Parker who recommended a 2-D echocardiogram which showed an ejection fraction of 50-55%, and no signs of significant valvular dysfunction. He was found have an elevated d-dimer and underwent a VQ scan which showed low probability of PE. He had orthostatic vitals checked which were within normal limits. Cardiology felt that this was not a cardiac dizziness. Neurology was consulted. They felt this was likely labyrinthitis. Carotid Dopplers did not show any significant disease, and head CT showed no acute process. Patient was determined stable for discharge. I also spoke with patient about dose reduction of medications as multiple meds could cause him dizziness- does not want to do this at this point in time. He will follow up with Dr. Elkins on 09/08 at 11:15am and Dr. Gutierrez on 09/21. I have encourage him to see Dr. Recio if symptoms do not improve over the next week. Patient seen and examined at bedside. Still with some dizziness, has been walking and going to the bathroom without difficulty, no chest pain, SOB, or nausea. Refuses to go to rehab, States family can stay with him /, will use walker at home. Discussed fall risk consequences of head bleed/fracture. Still does not want rehab. Vital signs reviewed and stable. General: non toxic, no distress, appears at stated age Derm: warm, dry Head: atraumatic, normocephalic, symmetric Eyes: EOMI, no lid lag, anicteric sclera Mouth: no lip lesion, mucus membranes moist Cardiovascular: S1S2 reg, no murmur, positive posterior tibial pulse bilateral, Lungs: Decreased bs bilateral, no rhonchi, no rales , no accessory muscle use Abdominal: soft, nontender to palpation, no guarding, no appreciable o rganomegaly Ext: no gross muscle atrophy, trace edema, no contractures Neuro: CN II-XI grossly intact, no focal neuro deficits Psych: Alert, oriented, appropriate affect A total of 25 minutes of time were spent preparing this complex discharge summary . Pertinent Studies: Head CT-no acute process, opacification of ethmoid air cells on the right Echocardiogram-ejection fraction 50-55% Carotid Dopplers-no significant stenosis Patient Condition at Discharge: Fair Plan - Discharge Summary New Discharge Prescriptions: New Loratadine [Claritin] 10 mg PO DAILY #30 tab Fluticasone Nasal [place] [Flonase Nasal [place]] 2 spr EA NOSTRIL DAILY #1 bottle Continue rOPINIRole HCL [Requip] 0.5 mg PO TID Levothyroxine Sodium [Synthroid] 175 mcg PO DAILY Isosorbide Mononitrate ER [Imdur] 60 mg PO DAILY Donepezil [Aricept] 10 mg PO HS Atorvastatin [Lipitor] 20 mg PO HS Tamsulosin HCl [Flomax] 0.4 mg PO HS Sennosides [Senokot] 17.2 mg PO HS Morphine Pain Pump 1 dose INTRATHECA CONTINUOUS Multivitamin [Multivitamins Adult Gummies] 1 tab PO DAILY Doxepin HCl [SINEquan] 50 mg PO HS Diltiazem HCl [Cartia Xt] 120 mg PO DAILY guaiFENesin [Mucinex] 1,200 mg PO BID Ipratropium-Albuterol Nebulize [Duoneb 0.5 mg-3 mg/3 ml Soln] 3 ml INHALATION RT-QID Melatonin 5 mg PO HS #1 tablet Furosemide [Lasix] 20 mg PO DAILY LORazepam [Ativan] 0.5 mg PO TID PRN PRN Reason: Anxiety Potassium Chloride ER [K-Dur 10] 10 meq PO DAILY Finasteride [Proscar] 5 mg PO HS Pantoprazole [Protonix] 40 mg PO AC-BRKFST #30 tablet.dr Theophylline 24 Hour [Anthony-24] 200 mg PO DAILY #30 cap.er.24h Meloxicam [Mobic] 15 mg PO DAILY HYDROcodone/APAP 10-325MG [[place] 10-325] 1 tab PO DAILY Gabapentin 800 mg PO QID Fluticasone/Vilanterol [Breo Ellipta 200-25 Mcg INH] 1 puff INHALATION RT- DAILY Discontinued Nitroglycerin Sl Tabs [Nitrostat] 0.4 mg SUBLINGUAL Q5M PRN PRN Reason: Chest Pain Omeprazole 40 mg PO HS Discharge Medication List Atorvastatin [Lipitor] 20 mg PO HS 06/30/16 [History] Donepezil [Aricept] 10 mg PO HS 06/30/16 [History] Isosorbide Mononitrate ER [Imdur] 60 mg PO DAILY 06/30/16 [History] Levothyroxine Sodium [Synthroid] 175 mcg PO DAILY 06/30/16 [History] Tamsulosin HCl [Flomax] 0.4 mg PO HS 06/30/16 [History] rOPINIRole HCL [Requip] 0.5 mg PO TID 06/30/16 [History] Morphine Pain Pump 1 dose INTRATHECA CONTINUOUS 12/20/16 [History] Sennosides [Senokot] 17.2 mg PO HS 12/20/16 [History] Multivitamin [Multivitamins Adult Gummies] 1 tab PO DAILY 04/24/17 [History] Diltiazem HCl [Cartia Xt] 120 mg PO DAILY 11/18/17 [History] Doxepin HCl [SINEquan] 50 mg PO HS 11/18/17 [History] guaiFENesin [Mucinex] 1,200 mg PO BID 01/05/18 [History] Ipratropium-Albuterol Nebulize [Duoneb 0.5 mg-3 mg/3 ml Soln] 3 ml INHALATION RT-QID 04/24/18 [History] Melatonin 5 mg PO HS #1 tablet 04/27/18 [Rx] Furosemide [Lasix] 20 mg PO DAILY 06/12/18 [History] LORazepam [Ativan] 0.5 mg PO TID PRN 06/12/18 [History] Potassium Chloride ER [K-Dur 10] 10 meq PO DAILY 06/12/18 [History] Finasteride [Proscar] 5 mg PO HS 07/31/18 [History] Pantoprazole [Protonix] 40 mg PO AC-BRKFST #30 tablet.dr 08/21/18 [Rx] Theophylline 24 Hour [Anthony-24] 200 mg PO DAILY #30 cap.er.24h 08/21/18 [Rx] Fluticasone/Vilanterol [Breo Ellipta 200-25 Mcg INH] 1 puff INHALATION RT-DAILY 09/01/18 [History] Gabapentin 800 mg PO QID 09/01/18 [History] HYDROcodone/APAP 10-325MG [[place] 10-325] 1 tab PO DAILY 09/01/18 [History] Meloxicam [Mobic] 15 mg PO DAILY 09/01/18 [History] Fluticasone Nasal [place] [Flonase Nasal [place]] 2 spr EA NOSTRIL DAILY #1 bottle 09/05/18 [Rx] Loratadine [Claritin] 10 mg PO DAILY #30 tab 09/05/18 [Rx] Follow up Appointment(s)/Referral(s): Anita Gutierrez MD [STAFF PHYSICIAN] - 09/21/18 3:45 pm Noble Elkins MD [Primary Care Provider] - 09/08/18 11:15 am Franklin Recio DO [Doctor of Osteopathic Medicine] - 1 Week Patient Instructions/Handouts: Dizziness (ED) Activity/Diet/Wound Care/Special Instructions: Heart healthy diet Activity as tolerated Use walker at all times at home Consider dose reduction of medications. Discharge Disposition: HOME WITH HOME HEALTH SERVICES
[2018-09-05 10:06] LABS: Folate, Serum >24.0 ng/mL
== END 2018-09-05 10:13 | disposition home or self-care (01) ==
LOC: EC 17:51 → 1SOBS 19:23 → 3SCARD 09-02 20:33
PROVIDERS: ADMIT Internal Medicine; ATTEND Internal Medicine
DX: R42 Dizziness and giddiness (principal); I49.3 Ventricular premature depolarization; J44.9 Chronic obstructive pulmonary disease, unspecified; J96.11 Chronic respiratory failure with hypoxia; I12.9 Hypertensive chronic kidney disease with stage 1 through stage 4 chronic kidney disease, or unspecified chronic kidney disease; N18.3 Chronic kidney disease, stage 3 (moderate); M06.9 Rheumatoid arthritis, unspecified; K21.9 Gastro-esophageal reflux disease without esophagitis; E78.5 Hyperlipidemia, unspecified; N40.0 Benign prostatic hyperplasia without lower urinary tract symptoms; G43.909 Migraine, unspecified, not intractable, without status migrainosus; R63.4 Abnormal weight loss; H54.7 Unspecified visual loss; G25.81 Restless legs syndrome; F41.9 Anxiety disorder, unspecified; Z99.81 Dependence on supplemental oxygen; G89.4 Chronic pain syndrome; M54.9 Dorsalgia, unspecified; K57.90 Diverticulosis of intestine, part unspecified, without perforation or abscess without bleeding; H26.9 Unspecified cataract; G56.01 Carpal tunnel syndrome, right upper limb; R53.1 Weakness; D64.9 Anemia, unspecified; E03.9 Hypothyroidism, unspecified; R79.89 Other specified abnormal findings of blood chemistry; E66.9 Obesity, unspecified; Z68.36 Body mass index [BMI] 36.0-36.9, adult; F17.210 Nicotine dependence, cigarettes, uncomplicated; F03.90 Unspecified dementia, unspecified severity, without behavioral disturbance, psychotic disturbance, mood disturbance, and anxiety; R00.0 Tachycardia, unspecified; Z91.81 History of falling; W01.198A Fall on same level from slipping, tripping and stumbling with subsequent striking against other object, initial encounter; Z79.890 Hormone replacement therapy; Z79.891 Long term (current) use of opiate analgesic; Z79.51 Long term (current) use of inhaled steroids; Z79.1 Long term (current) use of non-steroidal anti-inflammatories (NSAID); Z79.899 Other long term (current) drug therapy; Z88.0 Allergy status to penicillin; Z91.041 Radiographic dye allergy status; Z87.01 Personal history of pneumonia (recurrent); Z96.1 Presence of intraocular lens; Z96.89 Presence of other specified functional implants; Z86.19 Personal history of other infectious and parasitic diseases; Z86.010 Personal history of colon polyps; Z87.828 Personal history of other (healed) physical injury and trauma; Z98.41 Cataract extraction status, right eye; Z83.79 Family history of other diseases of the digestive system; Z81.2 Family history of tobacco abuse and dependence; Z82.49 Family history of ischemic heart disease and other diseases of the circulatory system; Z80.1 Family history of malignant neoplasm of trachea, bronchus and lung; Z83.1 Family history of other infectious and parasitic diseases
CPT/HCPCS: 96376; 96361 ×3; 96365; 96366 ×2; 96372 ×2; 96375; 93005 ×2; 99285; 36415; 94640 ×7; 94760; 93306; 97162; 85379; 80053; 80048; 84443; 82607; 82746; 83605; 83735 ×2; 80198; 84484 ×3; 85025; 85610; 71046; 93880; 70450; 78582; G0378 ×6; A9540; A9567; S0138 ×4; J1644 ×4; J1940

== ENCOUNTER 2018-09-13 16:15 | Inpatient (IN) | payer MEDICARE, BC ==
[2018-09-13] MEDS ORDERED: DEXTROSE 5% IN WATER 100 ML with AMIODARONE 150 MG IV ONE (16:24)
[2018-09-13] MEDS ORDERED: SODIUM CHLORIDE 0.9% 1,000 ML IV STA (16:24)
[2018-09-13 16:48] LABS: Basophils % (A) 1 %; Eosinophils # (A) 0.1 k/uL (0-0.7); Eosinophils % (A) 2 %; HGB 11.9 gm/dL (13.0-17.5); Lymphocytes # (A) 2.4 k/uL (1.0-4.8); Lymphocytes % (A) 33 %; MCH 31.4 pg (25.0-35.0); MCHC 33.2 g/dL (31.0-37.0); MCV 94.7 fL (80.0-100.0); Mean Platelet Volume 7.8; Monocytes # (A) 0.3 k/uL (0-1.0); Monocytes % (A) 5 %; Neutrophils # (A) 4.3 k/uL (1.3-7.7); Neutrophils % (A) 59 %; Platelet Count 147 k/uL (150-450); RDW 15.9 % (11.5-15.5); WBC 7.4 k/uL (3.8-10.6)
[2018-09-13 16:56] LABS: Albumin 3.6 g/dL (3.5-5.0); INR 0.9 (<1.2); Magnesium 1.8 mg/dL (1.6-2.3); Partial Thromboplastin Time 26.3 sec (22.0-30.0); Potassium 3.4 mmol/L (3.5-5.1); Prothrombin Time 10.1 sec (9.0-12.0); Total Bilirubin 0.5 mg/dL (0.2-1.3); Total Protein 6.6 g/dL (6.3-8.2)
--- NOTE | 2018-09-13 18:00 | XR ---
EXAMINATION TYPE: XR chest 2V DATE OF EXAM: 09/13/2018 COMPARISON: 09/01/2018 HISTORY: Dysrhythmia TECHNIQUE: Frontal and lateral views of the chest are obtained. FINDINGS: There is some linear density at the lung bases. There is no heart failure. Heart size is n ormal. Thoracic aorta is atheromatous. There are chest leads. IMPRESSION: There is some atelectasis at the lung bases unchanged compared to old exam. Normal heart .
[2018-09-13] MEDS ORDERED: POTASSIUM CHLORIDE 20 MEQ in WATER FOR INJECTION 1 100ML.BAG IVPB STA (18:42)
[2018-09-13] MEDS ORDERED: NALOXONE 0.4 MG/ML 1 ML VIAL IV PRN (19:04)
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
[2018-09-13] MEDS ORDERED: LORazepam 0.5 MG TAB PO PRN (19:06)
[2018-09-13] MEDS ORDERED: HYDROcodone/APAP 10-325MG 1 EACH TAB PO PRN (19:06)
[2018-09-13] MEDS: MAGNESIUM SULFATE-D5W PMX 1 GM in DEXTROSE/WATER 1 100ML.BAG IVPB SCH ×2 (19:24→20:27)
[2018-09-13] MEDS: IPRATROPIUM-ALBUTEROL 3 ML NEB INHALATION SCH (20:10)
[2018-09-13] MEDS: SODIUM CHLORIDE 0.9% 1,000 ML IV SCH (20:41)
[2018-09-13] MEDS: DONEPEZIL 10 MG TAB PO SCH (21:48)
[2018-09-13] MEDS: DOXEPIN 25 MG CAP PO SCH (21:48)
[2018-09-13] MEDS: ATORVASTATIN 20 MG TAB PO SCH (21:48)
[2018-09-13] MEDS: TAMSULOSIN 0.4 MG CAP.ER.24H PO SCH (21:49)
[2018-09-13] MEDS: MELATONIN 5 MG TABLET PO SCH (21:49)
[2018-09-13] MEDS: SENNOSIDES 8.6 MG TAB PO SCH (21:49)
[2018-09-13] MEDS: FINASTERIDE 5 MG TAB PO SCH (21:49)
[2018-09-13] MEDS: guaiFENesin 600 MG TABLET.ER PO SCH (21:49)
[2018-09-13] MEDS: GABAPENTIN 400 MG CAP PO SCH (21:50)
[2018-09-14 05:37] LABS: Basophils # (A) 0.1 k/uL (0-0.2); Basophils % (A) 1 %; Eosinophils # (A) 0.1 k/uL (0-0.7); Eosinophils % (A) 2 %; HCT 33.5 % (39.0-53.0); HGB 10.6 gm/dL (13.0-17.5); Hypochromasia Slight; Lymphocytes # (A) 2.5 k/uL (1.0-4.8); Lymphocytes % (A) 33 %; MCH 30.3 pg (25.0-35.0); MCHC 31.6 g/dL (31.0-37.0); MCV 96.1 fL (80.0-100.0); Mean Platelet Volume 8.1; Monocytes # (A) 0.4 k/uL (0-1.0); Monocytes % (A) 5 %; Neutrophils # (A) 4.4 k/uL (1.3-7.7); Neutrophils % (A) 58 %; Platelet Count 133 k/uL (150-450); RBC 3.49 m/uL (4.30-5.90); RDW 15.9 % (11.5-15.5); WBC 7.6 k/uL (3.8-10.6)
[2018-09-14 05:51] LABS: Calcium 8.5 mg/dL (8.4-10.2); Magnesium 2.3 mg/dL (1.6-2.3); Potassium 3.5 mmol/L (3.5-5.1)
[2018-09-14] MEDS: LEVOTHYROXINE 100 MCG TAB PO SCH (06:16)
[2018-09-14] MEDS: LEVOTHYROXINE 75 MCG TAB PO SCH (06:16)
[2018-09-14] MEDS: PANTOPRAZOLE 40 MG TABLET PO SCH (06:16)
[2018-09-14] MEDS ORDERED: Potassium Replacement Protocol 1 EACH MISC MISCELLANE PRN (07:25)
[2018-09-14] MEDS: SYMBICORT 160-4.5 MCG INHALER INHALATION SCH ×2 (07:44→20:12)
[2018-09-14] MEDS: IPRATROPIUM-ALBUTEROL 3 ML NEB INHALATION SCH ×4 (07:44→20:12)
[2018-09-14] MEDS: POTASSIUM CHLORIDE ER 10 MEQ TAB.ER.PRT PO SCH (09:00)
[2018-09-14] MEDS ORDERED: ISOSORBIDE MONONITRATE ER 60 MG TAB.ER.24H PO SCH (09:00)
[2018-09-14] MEDS: GABAPENTIN 400 MG CAP PO SCH ×3 (09:00→21:42)
[2018-09-14] MEDS: DILTIAZEM CD 120 MG CAP.ER.24H PO SCH (09:00)
[2018-09-14] MEDS ORDERED: THEOPHYLLINE 24 HOUR 200 MG CAP.ER.24H PO SCH (09:00)
[2018-09-14] MEDS: POTASSIUM CHLORIDE ER 20 MEQ TAB.ER PO SCH ×2 (09:00→09:56)
[2018-09-14] MEDS: FUROSEMIDE 20 MG TAB PO SCH (09:00)
[2018-09-14] MEDS: LORATADINE 10 MG TAB PO SCH (09:00)
[2018-09-14] MEDS: MELOXICAM 7.5 MG TAB PO SCH (09:01)
[2018-09-14] MEDS: guaiFENesin 600 MG TABLET.ER PO SCH ×2 (09:01→21:42)
[2018-09-14] MEDS: MULTIVITAMINS, THERA 1 EACH TAB PO SCH (09:01)
[2018-09-14] MEDS: FLUTICASONE 50MCG/SPRAY NASAL 16GM EA NOSTRIL SCH (09:02)
[2018-09-14 11:14] LABS: Potassium 3.9 mmol/L (3.5-5.1); Theophylline 4.1 ug/mL
--- NOTE | 2018-09-14 17:25 | HP ---
HISTORY AND PHYSICAL DATE OF ADMISSION: 09/13/2018 DATE OF SERVICE: 09/14/2018 PRESENTING COMPLAINT: Heart racing, short of breath. HISTORY OF PRESENTING COMPLAINT: This is a pleasant 83-year-old patient of Dr. Elkins out of [place] and Dr. Diaz, patient's regional clinical director. Chronic stable medical conditions include GERD, hypertension, BPH, rheumatoid arthritis, home oxygen 2 L, colonic diverticulosis, restless legs syndrome, mild cognitive impairment, intrathecal pain pump, for which he follows with Dr. Hilliard. Patient also has longstanding COPD. Patient presented with episodes of some runs of palpitations, increasing shortness of breath and occasional sharp pain in the chest. Patient had what appears to be a Holter monitor from [facility] and patient was found to have frequent PVCs with bigeminy and trigeminy. Patient was admitted for the same. Patient's breathing otherwise is at his baseline. REVIEW OF SYSTEMS: CONSTITUTIONAL: Tired. HEENT: Decreased hearing. RESPIRATORY: Short of breath at baseline. CARDIOVASCULAR: As above. GASTROINTESTINAL: Heartburn. GENITOURINARY: None. MUSCULOSKELETAL: Pain in the joints. DERMATOLOGICAL: None. HEMATOLOGICAL: None. LYMPHATICS: None. PSYCHIATRY: Anxiety at baseline. NEUROLOGICAL: Some neuropathy. PAST MEDICAL HISTORY: 1. COPD. 2. GERD. 3. Hyperlipidemia. 4. Hypertension. 5. Prostate disorder. 6. Rheumatoid arthritis. 7. Home oxygen 2 L. 8. Pain pump, being followed by Dr. Hilliard. 9. Cataract in the right eye. 10.Right eye injury with vision loss. 11.Shingles. 12.Chronic sinus disease. 13.Migraines. 14.Diverticulosis. 15.Restless legs syndrome. 16.BPH. 17.Right carpal tunnel disorder. PAST SURGICAL HISTORY: 1. Right lens implant. 2. Right foot, right toe surgery. 3. Left foot surgery. 4. Repair of left index finger, partial amputation. 5. Bilateral rotator cuff repair. 6. Pain pump. PSYCH HISTORY: Anxiety. SOCIAL HISTORY: The patient has a daughter who helps him out. He uses a cane and a walker. Home oxygen 2 L. Patient did smoke in the past. No alcohol. FAMILY HISTORY: Cirrhosis. HOME MEDICATIONS: 1. Requip 0.5 mg t.i.d. 2. Mucinex 1200 mg b.i.d. 3. Anthony-24 200 mg p.o. daily. 4. Flomax 0.4 mg at bedtime. 5. Senokot 17.2 mg p.o. at bedtime. 6. Potassium 10 mEq p.o. daily. 7. Protonix 40 mg p.o. with breakfast. 8. Multivitamin 1 tablet p.o. daily. 9. Morphine pain pump 1 dose intrathecal. 10.Mobic 15 mg p.o. daily. 11.Melatonin 5 mg at bedtime. 12.Claritin 10 mg p.o. daily. 13.Synthroid 175 mcg p.o. daily. 14.Ativan 0.5 p.o. t.i.d. p.r.n. 15.Imdur 60 mg p.o. daily. 16.DuoNeb q.i.d. 17.[place] 10 one tablet b.i.d. p.r.n. 18.Gabapentin 800 mg t.i.d. 19.Lasix 20 mg p.o. daily. 20.Breo Ellipta 200/25 one puff daily. 21.Flonase 2 sprays each nostril daily. 22.Proscar 5 mg at bedtime. 23.Doxepin 50 mg at bedtime. 24.Aricept 10 mg at bedtime. 25.Cartia XT 120 mg p.o. daily. 26.Lipitor 20 mg at bedtime. ALLERGIES: 1. IV CONTRAST DYE. 2. PENICILLIN. PHYSICAL EXAMINATION: Temperature 98.4, pulse 83, respiration 18, blood pressure 137/77, pulse ox 95% on 2 L. GENERAL APPEARANCE: Well built; BMI 35.7. Lying in bed, not in distress. EYES: Pupils equal. Conjunctivae normal. HEENT: External appearance of nose and ears normal. Oral cavity normal. NECK: JVD not raised. Mass not palpable. RESPIRATORY: Effort increased. LUNGS: Diminished breath sounds. CARDIOVASCULAR: First and second sounds normal. Minimal edema. ABDOMEN: Soft, non-tender. Liver and spleen not palpable. LYMPHATIC: No lymph node palpable in neck or axillae. PSYCHIATRY: Alert and oriented x3. Mood and affect anxious-appearing. NEUROLOGICAL: Pupils equal. Cranial nerves grossly intact. Power and sensation: Decreased sensation distally. INVESTIGATIONS: White count 7.6, hemoglobin 10.6, potassium 3.5. Creatinine 1.3, repeat 1.09. TSH 0.986. Theophylline 4.1. EKG showing bigeminy and trigeminy and PVCs. ASSESSMENT: 1. Symptomatic premature ventricular contractions, bigeminies and trigeminy. 2. Chronic obstructive pulmonary disease in an ex-smoker. 3. Gastroesophageal reflux disease. 4. Essential hypertension. 5. Hyperlipidemia. 6. Benign prostatic hypertrophy. 7. Chronic rheumatoid arthritis. 8. Hypothyroid. 9. Chronic hypoxic respiratory failure from underlying chronic obstructive pulmonary disease. 10.Chronic colonic diverticulosis. 11.Mild cognitive impairment with underlying late-onset Alzheimer's dementia. 12.Restless legs syndrome. 13.Chronic gait dysfunction. Uses a cane and a walker. 14.Chronic pain syndrome with intrathecal pain pump, followed by Dr. Hilliard. The patient did have an echocardiogram 3 weeks ago that showed an EF of 50% to 55%. PLAN: Home medications are continued. Cardiology was consulted. Follow with them. Care was discussed with the patient. SARA / ABUNDION: [id number] /
--- NOTE | 2018-09-14 18:11 | CONS ---
CONSULTATION Mr. Renee is an 83-year-old gentleman who is seen for cardiac evaluation. This patient was brought by EMS because he was complaining of palpitations. He has been having intermittent dizziness for last couple of weeks. Denies any history of syncope. Denies any history of chest pain. He does have a exertional shortness of breath. This patient has a history of a COPD and has been followed by Dr. Diaz. The patient denies any history of congestive heart failure. Denies any history of myocardial infarction or angina. The patient was seen by Dr. Gomez in our office and 24 hour DCG was . MEDICATIONS: Home medications include Lipitor 20 mg daily, Aricept, Imdur, Synthroid, Flomax, Requip, Cartia, Sinequan, Mucinex, Proscar, Protonix, Anthony 24 200 mg daily, and Claritin. REVIEW OF THE SYSTEM: Otherwise unremarkable. PAST MEDICAL HISTORY: Includes the patient has chronic hypoxic respiratory failure, using oxygen at night, history of chronic back pain, history of rheumatoid arthritis and thyroid disorder. Past history of shingles, repair of the index finger, rotator cuff repair. PHYSICAL EXAMINATION: At present reveals 83-year-old gentleman who does not appear to be in any acute distress. In the emergency room, this patient had a sinus tachycardia. Intermittent PVCs and ventricular couplets and triplets were noted. The patient was received 1 unit of obesely 150 mg of IV amiodarone. HEENT examination is negative. NECK is supple. There is no increase in jugular venous pressure. Both the carotid pulses are felt. There is no bruit. CHEST is symmetrical. HEART the PMI is not felt. First and second heart sounds are normal. There is no evidence of any murmur. LUNGS reveal bilateral diminished air entry. Bilateral basal rales are noted. ABDOMEN is soft. Liver and spleen are not enlarged. EXTREMITIES: Peripheral pulsations are 2+. EKG shows sinus tachycardia with incomplete right bundle branch block and multiple PVCs intermittently in the form of triplets were noted. Patient's potassium was 3.5. During the night, no significant arrhythmias are noted. Chest x-ray shows some atelectasis which is unchanged from before. Potassium is 3.5, which is being corrected. LABORATORY DATA: Hemoglobin is 10.6. TSH is normal. IMPRESSION: Cardiac arrhythmia and palpitations patient is having frequent PVCs and short runs of nonsustained ventricular tachycardia consisting of 3 PVCs in a row. The patient is mildly hypokalemic which will be corrected. Echo and Doppler study will be done. We will discontinue Cardizem and start the patient on Lopressor 25 mg b.i.d. We will discontinue theophylline and get a stat theophylline blood level. Depending upon the results, further recommendations will be made. MMODL / IJN: [id number] /
[2018-09-14] MEDS: FINASTERIDE 5 MG TAB PO SCH (21:42)
[2018-09-14] MEDS: DONEPEZIL 10 MG TAB PO SCH (21:42)
[2018-09-14] MEDS: ATORVASTATIN 20 MG TAB PO SCH (21:42)
[2018-09-14] MEDS: DOXEPIN 25 MG CAP PO SCH (21:42)
[2018-09-14] MEDS: TAMSULOSIN 0.4 MG CAP.ER.24H PO SCH (21:43)
[2018-09-14] MEDS: METOPROLOL TARTRATE 25 MG TAB PO SCH (21:43)
[2018-09-14] MEDS: SENNOSIDES 8.6 MG TAB PO SCH (21:43)
[2018-09-14] MEDS: SODIUM CHLORIDE 0.9% 1,000 ML IV SCH (21:44)
[2018-09-14] MEDS: MELATONIN 5 MG TABLET PO SCH (21:45)
[2018-09-14 22:05] VITALS: RESP 18
[2018-09-15] MEDS: LEVOTHYROXINE 75 MCG TAB PO SCH (06:25)
[2018-09-15] MEDS: LEVOTHYROXINE 100 MCG TAB PO SCH (06:26)
[2018-09-15] MEDS: PANTOPRAZOLE 40 MG TABLET PO SCH (06:26)
[2018-09-15] MEDS: IPRATROPIUM-ALBUTEROL 3 ML NEB INHALATION SCH ×3 (07:49→16:44)
[2018-09-15] MEDS: SYMBICORT 160-4.5 MCG INHALER INHALATION SCH (07:49)
[2018-09-15] MEDS: FUROSEMIDE 20 MG TAB PO SCH (08:45)
[2018-09-15] MEDS: DILTIAZEM CD 120 MG CAP.ER.24H PO SCH (08:45)
[2018-09-15] MEDS: METOPROLOL TARTRATE 25 MG TAB PO SCH (08:45)
[2018-09-15] MEDS: MELOXICAM 7.5 MG TAB PO SCH (08:45)
[2018-09-15] MEDS: LORATADINE 10 MG TAB PO SCH (08:45)
[2018-09-15] MEDS: MULTIVITAMINS, THERA 1 EACH TAB PO SCH (08:45)
[2018-09-15] MEDS: guaiFENesin 600 MG TABLET.ER PO SCH (08:45)
[2018-09-15] MEDS: GABAPENTIN 400 MG CAP PO SCH (08:45)
[2018-09-15] MEDS: POTASSIUM CHLORIDE ER 10 MEQ TAB.ER.PRT PO SCH (08:45)
[2018-09-15] MEDS: FLUTICASONE 50MCG/SPRAY NASAL 16GM EA NOSTRIL SCH (08:46)
[2018-09-15 11:13] VITALS: BP 111/71; TEMP 97.9
[2018-09-15 12:17] VITALS: PULSE 88
--- NOTE | 2018-09-15 14:54 | P.PN ---
Subjective Progress Note Date: 09/15/18 This is an 83-year-old gentleman who was brought in by the EMS because of palpitations. He was seen in consultation yesterday by Dr. VC Castellanos. He was noted on the monitor to have frequent PVCs and short runs of nonsustained ventricular tachycardia. Today it is noted that the patient is having only occa sional PVCs, he was initiated on Lopressor yesterday and his Cardizem was discontinued. We also did a theophylline blood test which came back to be normal and the theophylline was discontinued. Blood pressure 110/70 with a heart rate in the 80s, 96% on 3 L of oxygen. At the time of my examination today, patient states he was extremely dizzy, it was worse when he moved his head one way to the next. We did check his blood pressure at that time which came back to be 106/80, heart rate was in the 70s. Orthostatics were performed shortly thereafter which came back to be negative. It is possible that the patient's dizziness at this time is secondary to vertigo or inner ear problems. He does state that he has chronic inner ear infections. Objective - Vital Signs Vital signs: Vital Signs Temp 97.9 F 09/15/18 11:12 Pulse 88 09/15/18 12:16 Resp 18 09/15/18 11:12 BP 111/71 09/15/18 11:12 Pulse Ox 96 09/15/18 11:12 Intake & Output 09/14/18 09/15/18 09/15/18 18:59 06:59 18:59 Intake Total 840 240 960 Balance 840 240 960 Weight 103.8 kg Intake: Oral 840 240 960 Other: Voiding Method Toilet # Voids 1 1 2 - Exam PHYSICAL EXAMINATION: GENERAL: 83-year-old gentleman in no acute distress at the time of my examination HEENT: Head is atraumatic, normocephalic. Pupils equal, round. Sclera anicteric. Conjunctiva are clear. Mucous membranes of the mouth are moist. Neck is supple. There is no elevated jugular venous pressure. No carotid bruit is heard. HEART EXAMINATION: Heart S1, S2 normal. No murmur or gallop heard. CHEST EXAMINATION: Lungs are clear to auscultation and precussion. No chest wall tenderness is noted on palpation or with deep breathing. ABDOMEN: Soft, nontender. Bowel sounds are heard. No organomegaly noted. EXTREMITIES: 2+ peripheral pulses with no evidence of peripheral edema and no calf tenderness noted. NEUROLOGIC patient is awake, alert and oriented 3. . - Labs CBC & Chem 7: 09/14/18 05:18 09/14/18 10:50 Assessment and Plan Plan: Assessment and plan #1 symptoms of palpitations with evidence of PVCs and nonsustained ventricular tachycardia. Patient was initiated on beta wali yesterday, just having occasional PVCs today. #2 symptoms of dizziness, likely secondary to vertigo and inner ear problems. Blood pressure and heart rate during his symptoms of dizziness are stable. #3 rheumatoid arthritis #4 COPD #5 chronic pain syndrome Plan From cardiology's perspective, we would recommend to continue the patient on his current dose of beta wali, continue to hold the theophylline. His echo done a couple of weeks ago did reveal a normal left ventricular systolic function. DNP note has been reviewed, I agree with a documented findings and plan of care. Patient was seen and examined.
== END 2018-09-15 17:06 | disposition home or self-care (01) | DRG 309 ==
LOC: EC 16:15 → 3SCARD 19:09
PROVIDERS: ADMIT Hospitalist; ATTEND Hospitalist
DX: I47.2 Ventricular tachycardia (principal); J96.11 Chronic respiratory failure with hypoxia; I49.3 Ventricular premature depolarization; E03.9 Hypothyroidism, unspecified; E78.5 Hyperlipidemia, unspecified; E87.6 Hypokalemia; F02.80 Dementia in other diseases classified elsewhere, unspecified severity, without behavioral disturbance, psychotic disturbance, mood disturbance, and anxiety; G25.81 Restless legs syndrome; G30.1 Alzheimer's disease with late onset; G89.4 Chronic pain syndrome; H54.61 Unqualified visual loss, right eye, normal vision left eye; I10 Essential (primary) hypertension; J44.9 Chronic obstructive pulmonary disease, unspecified; K21.9 Gastro-esophageal reflux disease without esophagitis; K57.30 Diverticulosis of large intestine without perforation or abscess without bleeding; M06.9 Rheumatoid arthritis, unspecified; N40.0 Benign prostatic hyperplasia without lower urinary tract symptoms; Z79.1 Long term (current) use of non-steroidal anti-inflammatories (NSAID); Z79.890 Hormone replacement therapy; Z79.899 Other long term (current) drug therapy; Z80.1 Family history of malignant neoplasm of trachea, bronchus and lung; Z82.49 Family history of ischemic heart disease and other diseases of the circulatory system; Z86.19 Personal history of other infectious and parasitic diseases; Z87.891 Personal history of nicotine dependence; Z88.0 Allergy status to penicillin; Z91.041 Radiographic dye allergy status; R00.8 Other abnormalities of heart beat; G62.9 Polyneuropathy, unspecified; R26.9 Unspecified abnormalities of gait and mobility; I45.10 Unspecified right bundle-branch block; Z96.89 Presence of other specified functional implants; Z98.41 Cataract extraction status, right eye; Z96.1 Presence of intraocular lens; G43.909 Migraine, unspecified, not intractable, without status migrainosus; G56.01 Carpal tunnel syndrome, right upper limb; Z89.022 Acquired absence of left finger(s); F41.9 Anxiety disorder, unspecified
CPT/HCPCS: 36415; 71046; 80048; 80053; 80198; 82550; 83735; 84132; 84443; 84484; 85025; 85610; 85730; 93005; 94640; 94760; 96365; 96366; 96368; 99291

== ENCOUNTER → 2018-10-02 | Outpatient (CLI) | payer MEDICARE, BC ==
--- NOTE | 2018-10-02 14:57 | CT ---
EXAMINATION TYPE: CT abdomen pelvis wo con DATE OF EXAM: 10/02/2018 COMPARISON: 08/13/2018 HISTORY: 83-year-old male LLQ pain with history of diverticulitis CT DLP: 1118.5 mGycm. Automated exposure control for dose reduction was used. TECHNIQUE: Contiguous axial scanning of the abdomen and pelvis without IV contrast. Coronal and sagit vasquez reconstructions performed. FINDINGS: Heart normal size without pericardial effusion. Patchy and confluent nodular peribronchovascular opacities in the visualized lower lungs. No pleural effusion. Some layering sludge suggested in the gallbladder. Gallbladder is borderline hydropic measuring 9.8 x 3.8 cm. No surrounding inflammatory change. Noncontrast appearance of the liver, adrenal glands, left kidney, spleen, and atrophic pancreas show no gross abnormality. Small diverticulum of the second portion of the duodenum projecting into the pa ncreatic head region. 1.5 cm echodensity with posterior right kidney inadequately characterized on this study, likely a cys t. No dilated small bowel, free fluid, or free air. No mesenteric or retroperitoneal lymphadenopathy. Focal nodular thickening along the anterior wall of the mid small bowel loop, axial image 89 could re present a small bowel diverticulum or sequela of patient's recent inflammatory process. Follow-up is recommended. Normal appendix. Mild stool. Left-sided colonic diverticulosis, greatest in the sigmoid colon. No per icolonic inflammatory change. Mild circumferential bladder wall thickening may relate to incomplete distention. No abnormal fluid c ollection the pelvis or pelvic lymphadenopathy. Mild to moderate atherosclerotic calcifications infrarenal abdominal aorta. Bones: Mild degenerative changes at the hips. Small gauge stimulator lead entering the spinal canal a t the posterior L2-L3 level with the termination at the T10-T11 level. IMPRESSION: 1. New patchy and confluent nodular peribronchovascular infiltrates in the lower lungs. Correlate fo r multifocal pneumonia including atypical infections or inflammatory process such as [employer]. 2. Left-sided diverticulosis, greatest in the sigmoid colon. No evidence for acute diverticulitis. 3. Area of focal nodular thickening along the anterior wall of a mid small bowel loop (axial image 8 9) could represent a small bowel diverticula or sequela of patient's recent inflammatory process. 2-3 month follow-up recommended to reassess. 4. The patient's previous scattered free intraperitoneal air has resolved.
== END | disposition home or self-care (01) ==
LOC: RADCTMAIN 13:32
PROVIDERS: ATTEND Surgery Plastic and Reconstructive Surgery
DX: K57.30 Diverticulosis of large intestine without perforation or abscess without bleeding (principal); K63.89 Other specified diseases of intestine; Z88.3 Allergy status to other anti-infective agents; Z88.0 Allergy status to penicillin
CPT/HCPCS: 74176

== ENCOUNTER 2018-10-03 12:20 | Inpatient (IN) | payer MEDICARE, BC ==
[2018-10-03] MEDS ORDERED: SODIUM CHLORIDE 0.9% 500 ML 500 ML IV STA ×2 (12:59→14:29)
[2018-10-03 13:21] LABS: Basophils % (A) 0 %; Eosinophils # (A) 0.2 k/uL (0-0.7); Eosinophils % (A) 2 %; HCT 38.3 % (39.0-53.0); HGB 12.3 gm/dL (13.0-17.5); Lymphocytes # (A) 1.8 k/uL (1.0-4.8); Lymphocytes % (A) 14 %; MCH 30.2 pg (25.0-35.0); MCHC 32.1 g/dL (31.0-37.0); MCV 94.2 fL (80.0-100.0); Mean Platelet Volume 7.3; Monocytes # (A) 0.5 k/uL (0-1.0); Monocytes % (A) 4 %; Neutrophils # (A) 10.3 k/uL (1.3-7.7); Neutrophils % (A) 80 %; RBC 4.07 m/uL (4.30-5.90); RDW 14.9 % (11.5-15.5)
[2018-10-03 13:29] LABS: Partial Thromboplastin Time 27.2 sec (22.0-30.0); Prothrombin Time 10.5 sec (9.0-12.0)
[2018-10-03 13:32] LABS: Platelet Count 338 k/uL (150-450)
[2018-10-03 13:44] LABS: Albumin 3.6 g/dL (3.5-5.0); Calcium 9.7 mg/dL (8.4-10.2); Magnesium 1.9 mg/dL (1.6-2.3); Potassium 4.3 mmol/L (3.5-5.1); Total Bilirubin 0.7 mg/dL (0.2-1.3)
--- NOTE | 2018-10-03 13:46 | XR ---
EXAMINATION TYPE: XR chest 2V DATE OF EXAM: 10/03/2018 COMPARISON: 09/13/2018 HISTORY: Weakness and shortness of breath. History of COPD. TECHNIQUE: Frontal and lateral views of the chest are obtained. FINDINGS: New patchy right infrahilar opacity and retrocardiac opacity are seen. Some flattening of the diaphragms on lateral view again suggests underlying COPD. Cardia mediastinal silhouette is mildl y enlarged. Mild multilevel degenerative changes of the spine are seen. No sizable pleural effusion o r pneumothorax. IMPRESSION: New bibasilar airspace disease that may represent atelectasis or pneumonia in the [facility] clinical setting.
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
[2018-10-03] MEDS ORDERED: AZTREONAM 2 GM in SODIUM CHLORIDE 0.9% 100 ML IVPB STA (14:33)
[2018-10-03] MEDS ORDERED: LEVOFLOXACIN 750MG-D5W PMX 750 MG in DEXTROSE/WATER 1 150ML.BAG IVPB STA (14:33)
[2018-10-03] MEDS ORDERED: PNEUMONIA PROTOCOL UTILIZED 1 EACH MISC PO PRN (14:33)
[2018-10-03] MEDS: SODIUM CHLORIDE 0.9% 1,000 ML IV SCH (16:07)
[2018-10-03] MEDS: IPRATROPIUM-ALBUTEROL 3 ML NEB INHALATION SCH (19:17)
[2018-10-03] MEDS ORDERED: CLINDAMYCIN 600 MG in DEXTROSE 5% IN WATER 50 ML IVPB SCH ×2 (20:00)
[2018-10-03] MEDS: guaiFENesin 600 MG TABLET.ER PO SCH (21:19)
[2018-10-03] MEDS: ATORVASTATIN 20 MG TAB PO SCH (21:19)
[2018-10-03] MEDS: METOPROLOL TARTRATE 25 MG TAB PO SCH (21:20)
[2018-10-03] MEDS: GABAPENTIN 400 MG CAP PO SCH (21:20)
[2018-10-03] MEDS: DONEPEZIL 10 MG TAB PO SCH (21:20)
[2018-10-03] MEDS: FINASTERIDE 5 MG TAB PO SCH (21:20)
[2018-10-03] MEDS: MELATONIN 5 MG TABLET PO SCH (21:20)
[2018-10-03] MEDS: TAMSULOSIN 0.4 MG CAP.ER.24H PO SCH (21:20)
[2018-10-03] MEDS: SENNOSIDES 8.6 MG TAB PO SCH (21:21)
[2018-10-03] MEDS: HYDROcodone/APAP 10-325MG 1 EACH TAB PO PRN (21:25)
[2018-10-03] MEDS: LORazepam 0.5 MG TAB PO PRN (21:25)
[2018-10-03] MEDS: DOXEPIN 25 MG CAP PO SCH (21:32)
[2018-10-03] MEDS: NON-FORMULARY DRUG (Morphine Pain Pump 1 DOSE) INTRATHECA SCH (21:36)
[2018-10-04] MEDS ORDERED: AZTREONAM 2 GM in SODIUM CHLORIDE 0.9% 100 ML IVPB SCH ×2
[2018-10-04] MEDS ORDERED: IPRATROPIUM-ALBUTEROL 3 ML NEB ONE (01:10)
[2018-10-04] MEDS: SODIUM CHLORIDE 0.9% 1,000 ML IV SCH ×2 (05:09→17:56)
[2018-10-04] MEDS: IPRATROPIUM-ALBUTEROL 3 ML NEB INHALATION SCH ×4 (08:51→18:46)
[2018-10-04] MEDS: SYMBICORT 160-4.5 MCG INHALER INHALATION SCH ×2 (08:51→18:46)
[2018-10-04] MEDS: GABAPENTIN 400 MG CAP PO SCH ×3 (09:07→22:39)
[2018-10-04] MEDS: PANTOPRAZOLE 40 MG TABLET PO SCH (09:07)
[2018-10-04] MEDS: guaiFENesin 600 MG TABLET.ER PO SCH ×2 (09:08→22:40)
[2018-10-04] MEDS: LEVOTHYROXINE 75 MCG TAB PO SCH (09:08)
[2018-10-04] MEDS: METOPROLOL TARTRATE 25 MG TAB PO SCH ×2 (09:09→22:40)
[2018-10-04] MEDS: POTASSIUM CHLORIDE ER 10 MEQ TAB.ER.PRT PO SCH (09:09)
[2018-10-04] MEDS: LEVOTHYROXINE 100 MCG TAB PO SCH (09:09)
[2018-10-04] MEDS: MULTIVITAMINS, THERA 1 EACH TAB PO SCH (09:09)
[2018-10-04 10:49] LABS: Appearance,Urine Clear (Clear); Bilirubin,Urine Negative (Negative); Blood,Urine Negative (Negative); Color,Urine Yellow; Glucose,Urine (UA) Negative (Negative); Hyaline Casts,Urine 13 /lpf (0-2); Ketones,Urine Trace (Negative); Leukocyte Esterase,Urine Negative (Negative); Mucus,Urine Few /hpf; Nitrite,Urine Negative (Negative); PH, Urine 5.5 (5.0-8.0); Protein,Urine 1+ (Negative); RBC,Urine 1 /hpf (0-5); Specific Gravity,Urine 1.032 (1.001-1.035); Squamous Epithelial Cell,Urine <1 /hpf (0-4); Urobilinogen,Urine <2.0 mg/dL (<2.0); WBC,Urine 4 /hpf (0-5)
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
[2018-10-04] MEDS ORDERED: LEVOFLOXACIN 750MG-D5W PMX 750 MG in DEXTROSE/WATER 1 150ML.BAG IVPB SCH (14:00)
[2018-10-04] MEDS: LORazepam 0.5 MG TAB PO PRN ×2 (17:22→23:12)
[2018-10-04] MEDS: MELATONIN 5 MG TABLET PO SCH (22:39)
[2018-10-04] MEDS: SENNOSIDES 8.6 MG TAB PO SCH (22:39)
[2018-10-04] MEDS: FINASTERIDE 5 MG TAB PO SCH (22:40)
[2018-10-04] MEDS: ATORVASTATIN 20 MG TAB PO SCH (22:40)
[2018-10-04] MEDS: TAMSULOSIN 0.4 MG CAP.ER.24H PO SCH (22:40)
[2018-10-04] MEDS: DONEPEZIL 10 MG TAB PO SCH (22:40)
[2018-10-04] MEDS: NON-FORMULARY DRUG (Morphine Pain Pump 1 DOSE) INTRATHECA SCH (22:41)
[2018-10-04] MEDS ORDERED: IPRATROPIUM-ALBUTEROL 3 ML NEB INHALATION PRN (22:47)
[2018-10-04] MEDS: DOXEPIN 25 MG CAP PO SCH (23:02)
[2018-10-04] MEDS: HYDROcodone/APAP 10-325MG 1 EACH TAB PO PRN (23:13)
--- NOTE | 2018-10-04 23:20 | P.PN ---
Progress Note - Text Progress Note Date: 10/04/18 Chief Complaint: Nausea vomiting History of presenting complaint: This is a pleasant 82-year-old patient of Dr. 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 Chronic stable medical conditions include GERD, hypertension, BPH, rheumatoid arthritis, on home oxygen 2 L, colonic diverticulosis, restless leg syndrome, mild cognitive impairment, intrathecal pain pump for which she follows Dr. Hilliard. Patient presents with the one-day history of increasing nausea present about 5-6 episodes of vomiting he states no blood is present no abdominal pain. No fever no chills. The patient has some cough and congestion bringing up some green sputum. Denies any obvious fever or chills. Does feel tired and rundown. Today-feels better than yesterday. A bit tired. By evening time was eating much better. No further vomiting. Cough improved. Nausea improved. Review of systems: Was done for constitutional, cardiovascular, GI, pulmonary. relevant finding as above Current medications reviewed: IV ceftriaxone Physical examination: VITAL SIGNS: 97.9, 85, 16, 116/61, 97.3 L GENERAL: , laying in bed, appears better. EYES: Pupils equal. Conjunctiva normal. HEENT: [External appearance of nose and ears normal, oral cavity dry NECK: JVD not raised; masses not palpable. HEART: First and second heart sounds are normal; no edema. LUNGS: Respiratory rate increased, decreased breath sound questionable right basal crackles. ABDOMEN: Soft, nontender, liver spleen not palpable, no masses palpable. PSYCH: [Alert and oriented x3; mood and affect anxious l. Investigations, reviewed in the clinical context : No labs from today Assessment: Possible right basilar pneumonia suspected gram-negative organism, POA, improved -Acute viral gastritis patient had a few episodes of vomiting and some abdominal discomfort, improving -COPD in an ex-smoker GERD Essential hypertension Hyperlipidemia BPH -Chronic rheumatoid arthritis -Hypothyroid next Chronic hypoxic respiratory failure from underlying COPD -Chronic colonic diverticulosis -Mild cognitive impairment from underlying late onset Alzheimer's dementia -Restless leg syndrome -Chronic kidney dysfunction at her baseline uses a cane and a walker -Chronic pain syndrome for which patient is on intrathecal pain pump being followed by Dr. Hilliard Plan: Overall looking better. We'll give 1 more day of IV antibiotic. That is being gradually advanced. Encourage patient to be out of bed. Care was discussed with the patient's daughter the bedside.
[2018-10-05 06:10] VITALS: TEMP 98.4
[2018-10-05] MEDS: LEVOTHYROXINE 75 MCG TAB PO SCH (06:17)
[2018-10-05] MEDS: LEVOTHYROXINE 100 MCG TAB PO SCH (06:17)
[2018-10-05] MEDS: SODIUM CHLORIDE 0.9% 1,000 ML IV SCH (06:18)
[2018-10-05] MEDS ORDERED: IPRATROPIUM-ALBUTEROL 3 ML NEB INHALATION SCH (08:00)
[2018-10-05] MEDS: POTASSIUM CHLORIDE ER 10 MEQ TAB.ER.PRT PO SCH (08:36)
[2018-10-05] MEDS: guaiFENesin 600 MG TABLET.ER PO SCH (08:36)
[2018-10-05] MEDS: MULTIVITAMINS, THERA 1 EACH TAB PO SCH (08:36)
[2018-10-05] MEDS: METOPROLOL TARTRATE 25 MG TAB PO SCH ×2 (08:36→08:50)
[2018-10-05] MEDS: PANTOPRAZOLE 40 MG TABLET PO SCH (08:37)
[2018-10-05] MEDS: SYMBICORT 160-4.5 MCG INHALER INHALATION SCH (08:47)
[2018-10-05] MEDS: GABAPENTIN 400 MG CAP PO SCH (08:50)
[2018-10-05 08:54] VITALS: BP 96/69; RESP 18
[2018-10-05 11:01] VITALS: PULSE 74
[2018-10-05 11:02] LABS: Basophils % (A) 0 %; Eosinophils # (A) 0.2 k/uL (0-0.7); Eosinophils % (A) 3 %; HCT 34.2 % (39.0-53.0); HGB 10.6 gm/dL (13.0-17.5); Hypochromasia Moderate; Lymphocytes # (A) 1.8 k/uL (1.0-4.8); Lymphocytes % (A) 22 %; MCH 30.6 pg (25.0-35.0); MCV 98.6 fL (80.0-100.0); Mean Platelet Volume 7.1; Monocytes # (A) 0.3 k/uL (0-1.0); Monocytes % (A) 3 %; Neutrophils # (A) 5.7 k/uL (1.3-7.7); Neutrophils % (A) 71 %; Platelet Count 285 k/uL (150-450); RBC 3.47 m/uL (4.30-5.90); RDW 14.8 % (11.5-15.5)
[2018-10-05 11:17] LABS: Calcium 9.2 mg/dL (8.4-10.2); Potassium 4.2 mmol/L (3.5-5.1)
--- NOTE | 2018-10-05 13:26 | CDI ---
Documentation Clarification Form Date: 10/05/2018 1:19:46 PM From: Joceline Mendez CCS, CCDS Admit Date: 10/03/2018 4:24:00 PM Patient Name: Gabriel Renee Visit Number: [id number] Discharge Date: ATTENTION: The Clinical Documentation Specialists (CDI) and [facility] Coding Staff appreciate your assistance in clarifying documentation. Please respond to the clarification below the line at the bottom and electronically sign. The CDI & [facility] Coding staff will review the response and follow-up if needed. Please note: Queries are made part of the Legal Health Record. If you have any questions, please contact the author of this message via ITS. Dr. Ralph Barajas: Per the History & Physical & subsequent progress ntoe: Chronic kidney dysfunction at baseline. History/Risk Factors: COPD, GERD, hyperlipidemia, Hypertension, previous Pneumonia, BPH with urinary retention, chronic pain syndrome with pain pump, Chronic hypoxic respiratory failure on home O2 & former smoker. Clinical Indicators: Patient was admitted with nausea, vomiting, cough & congestion. Diagnosed with possible gram negative pneumonia & acute viral gastritis. Current BUN/CR/GFR: 18 8/ 0.97 / 73 Patients Baseline BUN/CR/GFR: at baseline per documentation. Treatment: IV fluid bolus x2, IV Aztreonam, IV Levaquin, IV fluid rate 75, Albuterol INH, IV Clindamycin. In order to capture the severity of condition, please clarify if the condition signifies: CKD Stage 1 (GFR > 90) CKD Stage 2 (GFR 60-89) Other, please specify Unable to determine or CKD ruled out (Last Revision: July 2017) CKD stage 2 MTDD
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
--- NOTE | 2018-10-06 22:46 | P.DS ---
Providers Date of admission: 10/03/18 16:24 Expected date of discharge: 10/05/18 Attending physician: Ralph Barajas Consults: 10/04/18 23:15 Consult Physician Routine Consulting Provider: Valente Jones Consult Reason/Comments: Pneumonia Do you want consulting provider notified?: Yes Primary care physician: Noble Elkins [facility] Course: discharge diagnosis: Possible right basilar pneumonia suspected gram-negative organism, POA, improved -Acute viral gastritis patient had a few episodes of vomiting and some abdominal discomfort, resolved -COPD in an ex-smoker GERD Essential hypertension Hyperlipidemia BPH -Chronic rheumatoid arthritis -Hypothyroid next Chronic hypoxic respiratory failure from underlying COPD -Chronic colonic diverticulosis -Mild cognitive impairment from underlying late onset Alzheimer's dementia -Restless leg syndrome -Chronic kidney dysfunction at her baseline uses a cane and a walker -Chronic pain syndrome for which patient is on intrathecal pain pump being followed by Dr. Hilliard [facility] course: This is a pleasant 82-year-old patient of Dr. 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 Chronic stable medical conditions include GERD, hypertension, BPH, rheumatoid arthritis, on home oxygen 2 L, colonic diverticulosis, restless leg syndrome, mild cognitive impairment, intrathecal pain pump for which she follows Dr. Hilliard. Patient presents with the one-day history of increasing nausea present about 5-6 episodes of vomiting he states no blood is present no abdominal pain. No fever no chills. The patient has some cough and congestion bringing up some green sputum. Denies any obvious fever or chills. Does feel tired and rundown. patient did well with antibiotics. Also nausea and vomiting settled down. tolerating a diet Doing well at the time of discharge.cleared by pulmonary consultation: Dr. Jones from pulmonary Physical examination: VITAL SIGNS: 98.8, 100, 24, 112/52, 92% room air GENERAL: , sitting up, comfortable. EYES: Pupils equal. Conjunctiva normal. HEENT: [External appearance of nose and ears normal, oral cavity dry NECK: JVD not raised; masses not palpable. HEART: First and second heart sounds are normal; no edema. LUNGS: Respiratory rate increased, decreased breath sound ABDOMEN: Soft, nontender, liver spleen not palpable, no masses palpable. PSYCH: [Alert and oriented x3; mood and affect anxious l. labs: White count 5.4, hemoglobin 11.1, potassium 4.7, BUN 42, creatinine 3.26 Disposition: Home Patient Condition at Discharge: Stable Plan - Discharge Summary Discharge Rx Participant: No New Discharge Prescriptions: Continue rOPINIRole HCL [Requip] 0.5 mg PO TID Levothyroxine Sodium [Synthroid] 175 mcg PO DAILY Donepezil [Aricept] 10 mg PO HS Atorvastatin [Lipitor] 20 mg PO HS Tamsulosin HCl [Flomax] 0.4 mg PO HS Sennosides [Senokot] 17.2 mg PO HS Morphine Pain Pump 1 dose INTRATHECA CONTINUOUS Multivitamin [Multivitamins Adult Gummies] 1 tab PO DAILY Doxepin HCl [SINEquan] 50 mg PO HS guaiFENesin [Mucinex] 1,200 mg PO BID Ipratropium-Albuterol Nebulize [Duoneb 0.5 mg-3 mg/3 ml Soln] 3 ml INHALATION RT-QID Melatonin 5 mg PO HS #1 tablet Furosemide [Lasix] 20 mg PO DAILY LORazepam [Ativan] 0.5 mg PO TID PRN PRN Reason: Anxiety Potassium Chloride ER [K-Dur 10] 10 meq PO DAILY Finasteride [Proscar] 5 mg PO HS Pantoprazole [Protonix] 40 mg PO AC-BRKFST #30 tablet. Meloxicam [Mobic] 15 mg PO DAILY HYDROcodone/APAP 10-325MG [[place] 10-325] 1 tab PO BID PRN PRN Reason: Pain Gabapentin 800 mg PO TID Fluticasone/Vilanterol [Breo Ellipta 200-25 Mcg INH] 1 puff INHALATION RT- DAILY Loratadine [Claritin] 10 mg PO DAILY #30 tab Fluticasone Nasal [place] [Flonase Nasal [place]] 2 spr EA NOSTRIL DAILY #1 bottle Metoprolol Tartrate [Lopressor] 25 mg PO BID #60 tab Doxycycline Monohydrate [Monodox] 100 mg PO Q12HR #30 cap Discharge Medication List Atorvastatin [Lipitor] 20 mg PO HS 06/30/16 [History] Donepezil [Aricept] 10 mg PO HS 06/30/16 [History] Levothyroxine Sodium [Synthroid] 175 mcg PO DAILY 06/30/16 [History] Tamsulosin HCl [Flomax] 0.4 mg PO HS 06/30/16 [History] rOPINIRole HCL [Requip] 0.5 mg PO TID 06/30/16 [History] Morphine Pain Pump 1 dose INTRATHECA CONTINUOUS 12/20/16 [History] Sennosides [Senokot] 17.2 mg PO HS 12/20/16 [History] Multivitamin [Multivitamins Adult Gummies] 1 tab PO DAILY 04/24/17 [History] Doxepin HCl [SINEquan] 50 mg PO HS 11/18/17 [History] guaiFENesin [Mucinex] 1,200 mg PO BID 01/05/18 [History] Ipratropium-Albuterol Nebulize [Duoneb 0.5 mg-3 mg/3 ml Soln] 3 ml INHALATION RT-QID 04/24/18 [History] Melatonin 5 mg PO HS #1 tablet 04/27/18 [Rx] Furosemide [Lasix] 20 mg PO DAILY 06/12/18 [History] LORazepam [Ativan] 0.5 mg PO TID PRN 06/12/18 [History] Potassium Chloride ER [K-Dur 10] 10 meq PO DAILY 06/12/18 [History] Finasteride [Proscar] 5 mg PO HS 07/31/18 [History] Pantoprazole [Protonix] 40 mg PO AC-BRKFST #30 tablet. 08/21/18 [Rx] Fluticasone/Vilanterol [Breo Ellipta 200-25 Mcg INH] 1 puff INHALATION RT-DAILY 09/01/18 [History] Gabapentin 800 mg PO TID 09/01/18 [History] HYDROcodone/APAP 10-325MG [[place] 10-325] 1 tab PO BID PRN 09/01/18 [History] Meloxicam [Mobic] 15 mg PO DAILY 09/01/18 [History] Fluticasone Nasal [place] [Flonase Nasal [place]] 2 spr EA NOSTRIL DAILY #1 bottle 09/05/18 [Rx] Loratadine [Claritin] 10 mg PO DAILY #30 tab 09/05/18 [Rx] Metoprolol Tartrate [Lopressor] 25 mg PO BID #60 tab 09/15/18 [Rx] Doxycycline Monohydrate [Monodox] 100 mg PO Q12HR #30 cap 10/02/18 [Rx] Follow up Appointment(s)/Referral(s): Valente Jones DO [Doctor of Osteopathic Medicine] - 10/17/18 4:15 pm (Will see Hailey Oh NP) [facility], [NON-STAFF] - Noble Elkins MD [Primary Care Provider] - 1-2 days (Please call office and schedule appointment. ) Patient Instructions/Handouts: COPD (Chronic Obstructive Pulmonary Disease) (DC), Pneumonia (DC) Activity/Diet/Wound Care/Special Instructions: Activity as tolerated. Maintain follow up appointments. Discharge Disposition: HOME WITH HOME HEALTH SERVICES
== END 2018-10-05 13:27 | disposition home health service (06) | DRG 178 ==
LOC: EC 12:20 → 4SSUR 16:24 → 4MS4W 10-04 17:51
PROVIDERS: ADMIT Hospitalist; ATTEND Hospitalist
DX: J15.6 Pneumonia due to other Gram-negative bacteria (principal); J44.0 Chronic obstructive pulmonary disease with (acute) lower respiratory infection; F11.20 Opioid dependence, uncomplicated; J96.11 Chronic respiratory failure with hypoxia; K21.9 Gastro-esophageal reflux disease without esophagitis; G43.909 Migraine, unspecified, not intractable, without status migrainosus; N40.0 Benign prostatic hyperplasia without lower urinary tract symptoms; M06.9 Rheumatoid arthritis, unspecified; G25.81 Restless legs syndrome; E03.9 Hypothyroidism, unspecified; E78.5 Hyperlipidemia, unspecified; A08.4 Viral intestinal infection, unspecified; G89.4 Chronic pain syndrome; I12.9 Hypertensive chronic kidney disease with stage 1 through stage 4 chronic kidney disease, or unspecified chronic kidney disease; N18.2 Chronic kidney disease, stage 2 (mild); Z96.1 Presence of intraocular lens; M54.9 Dorsalgia, unspecified; E66.9 Obesity, unspecified; F02.80 Dementia in other diseases classified elsewhere, unspecified severity, without behavioral disturbance, psychotic disturbance, mood disturbance, and anxiety; G30.1 Alzheimer's disease with late onset; F41.9 Anxiety disorder, unspecified; K57.30 Diverticulosis of large intestine without perforation or abscess without bleeding; Z68.32 Body mass index [BMI] 32.0-32.9, adult; Z99.81 Dependence on supplemental oxygen; Z87.891 Personal history of nicotine dependence; Z87.01 Personal history of pneumonia (recurrent); Z98.42 Cataract extraction status, left eye; Z82.49 Family history of ischemic heart disease and other diseases of the circulatory system; Z80.1 Family history of malignant neoplasm of trachea, bronchus and lung; Z79.1 Long term (current) use of non-steroidal anti-inflammatories (NSAID); Z79.890 Hormone replacement therapy; Z79.51 Long term (current) use of inhaled steroids; Z79.899 Other long term (current) drug therapy; Z88.0 Allergy status to penicillin; Z91.041 Radiographic dye allergy status
CPT/HCPCS: 36415; 71046; 80048; 80053; 81001; 83605; 83735; 84484; 85025; 85610; 85730; 87040; 87070; 87205; 93005; 94640; 96361; 96365; 99285

== ENCOUNTER → 2019-02-09 | Outpatient (CLI) | payer MEDICARE, BC ==
[2019-02-09 13:37] LABS: HCT 39.9 % (39.0-53.0); HGB 13.1 gm/dL (13.0-17.5); MCH 32.2 pg (25.0-35.0); MCV 97.8 fL (80.0-100.0); Mean Platelet Volume 6.5; Platelet Count 142 k/uL (150-450); RBC 4.08 m/uL (4.30-5.90); RDW 13.7 % (11.5-15.5); Reticulocyte % 1.6 % (0.5-2.0); WBC 6.1 k/uL (3.8-10.6)
[2019-02-09 19:12] LABS: % Iron Saturation 27.06 (15.00-50.00)
[2019-02-09 19:20] LABS: Ferritin 38.4 ng/mL (22.0-322.0)
[2019-02-09 19:24] LABS: Folate, Serum 20.4 ng/mL
== END | disposition home or self-care (01) ==
LOC: LABWHC1 11:59
PROVIDERS: ATTEND Psychiatry & Neurology Pain Medicine
DX: D64.9 Anemia, unspecified (principal)
CPT/HCPCS: 36415; 82607; 82668; 82728; 82746; 83540; 83550; 84466; 85027; 85045

== ENCOUNTER → 2019-02-09 | Outpatient (CLI) | payer MEDICARE, BC | END | disposition home or self-care (01) | LOC: CPPFTMAIN 10:32 | PROVIDERS: ATTEND Internal Medicine Critical Care Medicine | DX: J44.9 Chronic obstructive pulmonary disease, unspecified (principal); J98.8 Other specified respiratory disorders | CPT/HCPCS: 94060; 94726; 94729 ==

== ENCOUNTER 2019-04-07 12:19 | Observation (INO) | payer MEDICARE, BC ==
[2019-04-07] MEDS ORDERED: IPRATROPIUM 0.5 MG/2.5 ML NEBU INHALATION STA (13:00)
[2019-04-07] MEDS ORDERED: ALBUTEROL NEBULIZED 2.5 MG/3 ML INHALATION STA (13:00)
[2019-04-07] MEDS ORDERED: methylPREDNISolone SOD SUCCI 125 MG/2 ML VIAL IV STA (13:00)
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
[2019-04-07 13:36] LABS: Basophils % (A) 0 %; Eosinophils # (A) 0.5 k/uL (0-0.7); Eosinophils % (A) 7 %; HCT 37.6 % (39.0-53.0); HGB 12.5 gm/dL (13.0-17.5); Lymphocytes # (A) 1.9 k/uL (1.0-4.8); Lymphocytes % (A) 23 %; MCH 32.2 pg (25.0-35.0); MCHC 33.3 g/dL (31.0-37.0); MCV 96.8 fL (80.0-100.0); Mean Platelet Volume 7.3; Monocytes # (A) 0.3 k/uL (0-1.0); Monocytes % (A) 4 %; Neutrophils # (A) 5.3 k/uL (1.3-7.7); Neutrophils % (A) 65 %; Platelet Count 168 k/uL (150-450); RBC 3.88 m/uL (4.30-5.90); RDW 13.4 % (11.5-15.5); WBC 8.2 k/uL (3.8-10.6)
[2019-04-07 13:48] LABS: Albumin 3.8 g/dL (3.5-5.0); Calcium 8.9 mg/dL (8.4-10.2); Magnesium 2.1 mg/dL (1.6-2.3); Potassium 4.1 mmol/L (3.5-5.1); Total Bilirubin 0.7 mg/dL (0.2-1.3); Total Protein 6.7 g/dL (6.3-8.2)
--- NOTE | 2019-04-07 13:48 | XR ---
EXAMINATION TYPE: XR chest 2V DATE OF EXAM: 04/07/2019 COMPARISON: Chest x-ray October 03, 2018. HISTORY: Chest pain, cough, and congestion. TECHNIQUE: Frontal and lateral views of the chest are obtained. FINDINGS: Bibasilar parenchymal opacities remain present. There is no new suspicious focal air space opacity, pleural effusion, or pneumothorax seen. The cardiac silhouette size remains enlarged. The osseous structures are intact. IMPRESSION: Cardiomegaly with chronic bibasilar opacities favoring scarring and/or atelectasis.
[2019-04-07 13:49] LABS: INR 0.9 (<1.2); Partial Thromboplastin Time 28.8 sec (22.0-30.0); Prothrombin Time 9.8 sec (9.0-12.0)
[2019-04-07] MEDS ORDERED: IPRATROPIUM-ALBUTEROL 3 ML NEB INHALATION PRN (14:39)
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
[2019-04-07] MEDS ORDERED: ACETAMINOPHEN TAB 325 MG TAB PO PRN (17:06)
[2019-04-07] MEDS ORDERED: NALOXONE 0.4 MG/ML 1 ML VIAL IV PRN (17:06)
[2019-04-07] MEDS ORDERED: BISACODYL 5 MG TABLET.DR PO PRN (17:06)
[2019-04-07] MEDS ORDERED: MELATONIN 3 MG TABLET PO PRN (17:06)
[2019-04-07] MEDS ORDERED: ONDANSETRON 4 MG/2 ML VIAL IVP PRN (17:06)
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
[2019-04-07] MEDS ORDERED: methylPREDNISolone SOD SUCCI 125 MG/2 ML VIAL IV SCH (18:00)
[2019-04-07] MEDS ORDERED: NON FORMULARY DRUG (Morphine Pain Pump 1 DOSE) MISCELLANE SCH (18:15)
[2019-04-07] MEDS ORDERED: HYDROcodone/APAP 10-325MG 1 EACH TAB PO PRN (18:55)
[2019-04-07] MEDS ORDERED: LORazepam 0.5 MG TAB PO PRN (18:55)
[2019-04-07] MEDS: guaiFENesin 600 MG TABLET.ER PO SCH (19:57)
[2019-04-07] MEDS: GABAPENTIN 400 MG CAP PO SCH (19:57)
[2019-04-07] MEDS: CARBIDOPA-LEVODOPA 10-100 MG 1 EACH TAB PO SCH (19:57)
[2019-04-07] MEDS: DOXYCYCLINE 100 MG CAP PO SCH (19:57)
[2019-04-07] MEDS: BUDESONIDE 1 MG/2 ML NEBU INHALATION SCH (20:11)
[2019-04-07] MEDS: IPRATROPIUM-ALBUTEROL 3 ML NEB INHALATION SCH (20:11)
[2019-04-07] MEDS: FORMOTEROL FUMARATE 20 MCG/2 ML NEBU INHALATION SCH (20:24)
[2019-04-07] MEDS ORDERED: METOPROLOL TARTRATE 12.5 MG TAB PO SCH (21:00)
[2019-04-07] MEDS ORDERED: ATORVASTATIN 20 MG TAB PO SCH (21:00)
[2019-04-07] MEDS ORDERED: FINASTERIDE 5 MG TAB PO SCH (21:00)
[2019-04-07] MEDS ORDERED: TAMSULOSIN 0.4 MG CAP.ER.24H PO SCH (21:00)
[2019-04-07 23:53] VITALS: RESP 18
[2019-04-08] MEDS: IPRATROPIUM-ALBUTEROL 3 ML NEB INHALATION SCH ×2 (06:10→11:23)
[2019-04-08 06:20] LABS: Calcium 9.1 mg/dL (8.4-10.2)
[2019-04-08 06:27] LABS: HCT 38.7 % (39.0-53.0); HGB 12.7 gm/dL (13.0-17.5); MCH 32.2 pg (25.0-35.0); MCHC 32.7 g/dL (31.0-37.0); MCV 98.2 fL (80.0-100.0); Mean Platelet Volume 7.2; Platelet Count 183 k/uL (150-450); RBC 3.94 m/uL (4.30-5.90); RDW 13.3 % (11.5-15.5); WBC 8.4 k/uL (3.8-10.6)
[2019-04-08] MEDS ORDERED: LEVOTHYROXINE 75 MCG TAB PO SCH (06:30)
[2019-04-08] MEDS ORDERED: LEVOTHYROXINE 100 MCG TAB PO SCH (06:30)
[2019-04-08] MEDS: FORMOTEROL FUMARATE 20 MCG/2 ML NEBU INHALATION SCH (07:28)
[2019-04-08] MEDS: BUDESONIDE 1 MG/2 ML NEBU INHALATION SCH (07:28)
[2019-04-08] MEDS ORDERED: PANTOPRAZOLE 40 MG TABLET PO SCH (07:30)
[2019-04-08 07:41] VITALS: BP 96/59; TEMP 98.6
[2019-04-08] MEDS: GABAPENTIN 400 MG CAP PO SCH (08:08)
[2019-04-08] MEDS: guaiFENesin 600 MG TABLET.ER PO SCH (08:08)
[2019-04-08] MEDS: DOXYCYCLINE 100 MG CAP PO SCH (08:09)
[2019-04-08] MEDS: methylPREDNISolone SOD SUCCI 125 MG/2 ML VIAL IV SCH ×2 (08:09)
[2019-04-08] MEDS: CARBIDOPA-LEVODOPA 10-100 MG 1 EACH TAB PO SCH (08:10)
[2019-04-08] MEDS ORDERED: FUROSEMIDE 20 MG TAB PO SCH (09:00)
[2019-04-08] MEDS ORDERED: FLUTICASONE 50MCG/SPRAY NASAL 16GM EA NOSTRIL SCH (09:00)
[2019-04-08] MEDS ORDERED: POTASSIUM CHLORIDE ER 10 MEQ TAB.ER.PRT PO SCH (09:00)
--- NOTE | 2019-04-08 10:08 | P.PN ---
Subjective Progress Note Date: 04/08/19 Principal diagnosis: Acute exacerbation of chronic obstructive pulmonary disease On 04/08/2019 patient seen in follow-up in the observation unit, no significant cough or congestion, yesterday patient states he was able to clear large amount of phlegm, on today's exam lung sounds are essentially clear, no wheezing, no rhonchi. No signs are stable, no acute events overnight, patient has been treated with IV steroids, nebulized bronchodilator's and empiric antibiotics, significantly improved since admission, today's labs have been reviewed, white blood cell count is 8.4, hemoglobin is 12.7, electrolytes and renal profile are within normal limits. 3 sets troponins were less than 0.012, proBNP was within normal limits. Vital signs are stable, no fever or chills Objective - Vital Signs Vital signs: Vital Signs Temp 98.6 F 04/08/19 07:00 Pulse 103 H 04/08/19 08:00 Resp 18 04/08/19 08:00 BP 96/59 04/08/19 07:00 Pulse Ox 94 L 04/08/19 07:00 Intake & Output 04/07/19 04/08/19 04/08/19 18:59 06:59 18:59 Intake Total 480 Balance 480 Weight 92.986 kg Intake: Oral 480 Other: Voiding Method Toilet Toilet Toilet # Voids 1 - Exam GENERAL EXAM: Alert, a pleasant, 84-year-old white male, room air pulse ox is 94%, comfortable in no apparent distress. HEAD: Normocephalic/atraumatic. EYES: Normal reaction of pupils, equal size. Conjunctiva pink, sclera white. NOSE: Clear with pink turbinates. THROAT: No erythema or exudates. NECK: No masses, no JVD, no thyroid enlargement, no adenopathy. CHEST: No chest wall deformity. Symmetrical expansion. LUNGS: Equal air entry with no crackles, wheeze, rhonchi or dullness. CVS: Regular rate and rhythm, normal S1 and S2, no gallops, no murmurs, no rubs ABDOMEN: Soft, nontender. No hepatosplenomegaly, normal bowel sounds, no guarding or rigidity. EXTREMITIES: No clubbing, no edema, no cyanosis, 2+ pulses and upper and lower extremities. MUSCULOSKELETAL: Muscle strength and tone normal. SPINE: No scoliosis or deformity SKIN: No rashes CENTRAL NERVOUS SYSTEM: Alert and oriented -3. No focal deficits, tone is normal in all 4 extremities. PSYCHIATRIC: Alert and oriented -3. Appropriate affect. Intact judgment and insight. - Labs CBC & Chem 7: 04/08/19 05:52 04/08/19 05:52 Labs: Abnormal Lab Results - Last 24 Hours (Table) 04/07/19 04/07/19 04/08/19 Range/Units 13:07 13:07 05:52 RBC 3.88 L 3.94 L (4.30-5.90) m/uL Hgb 12.5 L 12.7 L (13.0-17.5) gm/dL Hct 37.6 L 38.7 L (39.0-53.0) % Glucose 100 H (74-99) mg/dL 04/08/19 Range/Units 05:52 RBC (4.30-5.90) m/uL Hgb (13.0-17.5) gm/dL Hct (39.0-53.0) % Glucose 180 H (74-99) mg/dL Assessment and Plan Plan: Assessment: 1 Acute exacerbation of chronic obstructive pulmonary disease 2 Acute on chronic hypoxic respiratory failure secondary to above 3 Previous history of chronic tobacco dependence 4 Hypertension 5 Hyperlipidemia 6 Rheumatoid arthritis 7 Hypothyroidism 8 Gastroesophageal reflux disease 9 Benign prostatic hyperplasia 10 Restless leg syndrome 11 Chronic back pain Plan: Patient has improved, eating easier, vital signs are stable, no fever or chills, no significant cough or congestion, no wheezing on today's exam, room air pulse ox 94%, has been treated with the steroids, nebulized medical dilators and antibiotics, responded well to inpatient treatments, from pulmonary perspective patient is stable for discharge home today follow-up with Dr. Jones in the office in one to 2 weeks I performed a history & physical examination of the patient and discussed their management with my nurse practitioner, Marta Herrera. I reviewed the nurse practitioner's note and agree with the documented findings and plan of care. Lung sounds are positive for clear breath sounds. The findings and the impression was discussed with the patient. I attest to the documentation by the nurse practitioner. Time with Patient: Less than 30
[2019-04-08 11:26] VITALS: PULSE 100
--- NOTE | 2019-04-08 12:23 | P.DS ---
Providers Date of admission: 04/07/19 14:39 Expected date of discharge: 04/08/19 Attending physician: Alicia Cartagena DO Consults: 04/07/19 14:39 Consult Physician Routine Consulting Provider: Sharmin Diaz Consult Reason/Comments: COPD exacerbation Do you want consulting provider notified?: Yes Primary care physician: Noble Elkins Hospital Course: Discharge Diagnosis: Acute exacerbation of COPD with acute bronchitis Acute on chronic hypoxic respiratory failure CJ, not using CPAP Pleuritic chest pain, resolved Chronic low back pain HTN HLD GERD RA hypothyroidism Hospital Course: Patient is an 84-year-old male with a past medical history of COPD with chronic hypoxic respiratory failure with use of 2 L nasal cannula, obstructive sleep apnea not currently using his CPAP, hypertension, dyslipidemia, chronic pain, and multiple other comorbid conditions as listed below who presented to the hospital with worsening cough. On arrival to the emergency department his vital signs were within normal limits. Laboratory analysis was at his baseline. Chest x-ray showed his chronic lower lobe ate lectasis but no acute changes. He was given bronchodilators and steroids. He had complained of chest pain, EKG was non ischemic and troponin was negative. He was placed in observation for further monitoring. Remained of his troponins were negative and his chest pain resolved with treatment of his COPD exacerbation. On the morning of 04/08 his breathing was improved and he was feeling better. He w as seen and evaluated by pulmonary who recommended outpatient follow up. He had no longer been coughing and he was determined stable for discharge home. He will complete a steroids tapped and a 5 day course of doxycycline. He will follow with Dr. Elkins next week. Patient seen and examined at bedside.Breathing much improved from yesterday, no additional chest pain. Not coughing. Vital signs reviewed and stable. General: non toxic, no distress, appears at stated age, obese Derm: warm, dry Head: atraumatic, normocephalic, symmetric Eyes: EOMI, no lid lag, anicteric sclera Mouth: no lip lesion, mucus membranes moist Cardiovascular: S1S2 reg, no murmur, positive posterior tibial pulse bilateral, Lungs: faint wheeze bilateral no rhonchi, no rales , no accessory muscle use Abdominal: soft, nontender to palpation, no guarding, no appreciable organomegaly Ext: no gross muscle atrophy, no edema, no contractures Neuro: CN II-XI grossly intact, no focal neuro deficits Psych: Alert, oriented, appropriate affect A total of 25 minutes of time were spent preparing this complex discharge summary . Patient Condition at Discharge: Stable Plan - Discharge Summary Discharge Rx Participant: No New Discharge Prescriptions: New Morphine Pain Pump 1 dose MISCELLANE CONTINUOUS predniSONE 0 mg PO DIRECTED #20 tab Doxycycline [Vibramycin] 100 mg PO BID #8 cap Continue rOPINIRole HCL [Requip] 0.5 mg PO TID Levothyroxine Sodium [Synthroid] 175 mcg PO DAILY Donepezil [Aricept] 10 mg PO HS Atorvastatin [Lipitor] 20 mg PO HS Tamsulosin HCl [Flomax] 0.4 mg PO HS Sennosides [Senokot] 8.6 mg PO BID Morphine Pain Pump 1 dose INTRATHECA CONTINUOUS Multivitamin [Multivitamins Adult Gummies] 1 tab PO DAILY guaiFENesin [Mucinex] 1,200 mg PO BID Ipratropium-Albuterol Nebulize [Duoneb 0.5 mg-3 mg/3 ml Soln] 3 ml INHALATION RT-QID Furosemide [Lasix] 20 mg PO DAILY LORazepam [Ativan] 0.5 mg PO TID PRN PRN Reason: Anxiety Potassium Chloride ER [K-Dur 10] 10 meq PO DAILY Finasteride [Proscar] 5 mg PO HS Pantoprazole [Protonix] 40 mg PO AC-BRKFST #30 tablet. HYDROcodone/APAP 10-325MG [[place] 10-325] 1 tab PO BID PRN PRN Reason: Pain Gabapentin 400 mg PO TID Fluticasone/Vilanterol [Breo Ellipta 200-25 Mcg INH] 1 puff INHALATION RT- DAILY Fluticasone Nasal [place] [Flonase Nasal [place]] 2 spr EA NOSTRIL DAILY #1 bottle Metoprolol Tartrate [Lopressor] 12.5 mg PO BID Carbidopa-Levodopa 10-100 mg [Sinemet 10-100 mg] 1 each PO TID [place] 18 mg PO DAILY Discharge Medication List Atorvastatin [Lipitor] 20 mg PO HS 06/30/16 [History] Donepezil [Aricept] 10 mg PO HS 06/30/16 [History] Levothyroxine Sodium [Synthroid] 175 mcg PO DAILY 06/30/16 [History] Tamsulosin HCl [Flomax] 0.4 mg PO HS 06/30/16 [History] rOPINIRole HCL [Requip] 0.5 mg PO TID 06/30/16 [History] Morphine Pain Pump 1 dose INTRATHECA CONTINUOUS 12/20/16 [History] Sennosides [Senokot] 8.6 mg PO BID 12/20/16 [History] Multivitamin [Multivitamins Adult Gummies] 1 tab PO DAILY 04/24/17 [History] guaiFENesin [Mucinex] 1,200 mg PO BID 01/05/18 [History] Ipratropium-Albuterol Nebulize [Duoneb 0.5 mg-3 mg/3 ml Soln] 3 ml INHALATION RT-QID 04/24/18 [History] Furosemide [Lasix] 20 mg PO DAILY 06/12/18 [History] LORazepam [Ativan] 0.5 mg PO TID PRN 06/12/18 [History] Potassium Chloride ER [K-Dur 10] 10 meq PO DAILY 06/12/18 [History] Finasteride [Proscar] 5 mg PO HS 07/31/18 [History] Pantoprazole [Protonix] 40 mg PO AC-BRKFST #30 tablet. 08/21/18 [Rx] Fluticasone/Vilanterol [Breo Ellipta 200-25 Mcg INH] 1 puff INHALATION RT-DAILY 09/01/18 [History] Gabapentin 400 mg PO TID 09/01/18 [History] HYDROcodone/APAP 10-325MG [[place] 10-325] 1 tab PO BID PRN 09/01/18 [History] Fluticasone Nasal [place] [Flonase Nasal [place]] 2 spr EA NOSTRIL DAILY #1 bottle 09/05/18 [Rx] Carbidopa-Levodopa 10-100 mg [Sinemet 10-100 mg] 1 each PO TID 04/07/19 [History] Iron 18 mg PO DAILY 04/07/19 [History] Metoprolol Tartrate [Lopressor] 12.5 mg PO BID 04/07/19 [History] Doxycycline [Vibramycin] 100 mg PO BID #8 cap 04/08/19 [Rx] Morphine Pain Pump 1 dose MISCELLANE CONTINUOUS 04/08/19 [Rx] predniSONE 0 mg PO DIRECTED #20 tab 04/08/19 [Rx] Follow up Appointment(s)/Referral(s): Valente Jones DO [Doctor of Osteopathic Medicine] - 2 Weeks Noble Elkins MD [Primary Care Provider] - 1-2 days Activity/Diet/Wound Care/Special Instructions: Activity: as tolerated Diet: carb consistent diet Special Instructions: Use your nebulizer every 4 hours as needed. Discharge Disposition: HOME SELF-CARE
== END 2019-04-08 13:00 | disposition home or self-care (01) ==
LOC: EC 12:19 → 1SOBS 14:39
PROVIDERS: ADMIT Internal Medicine; ATTEND Internal Medicine
DX: J44.0 Chronic obstructive pulmonary disease with (acute) lower respiratory infection (principal); J20.9 Acute bronchitis, unspecified; J96.21 Acute and chronic respiratory failure with hypoxia; G47.33 Obstructive sleep apnea (adult) (pediatric); I25.10 Atherosclerotic heart disease of native coronary artery without angina pectoris; G89.29 Other chronic pain; M54.5 Low back pain; I10 Essential (primary) hypertension; E78.5 Hyperlipidemia, unspecified; K21.9 Gastro-esophageal reflux disease without esophagitis; M06.9 Rheumatoid arthritis, unspecified; E03.9 Hypothyroidism, unspecified; F41.9 Anxiety disorder, unspecified; G25.81 Restless legs syndrome; Z86.73 Personal history of transient ischemic attack (TIA), and cerebral infarction without residual deficits; H26.9 Unspecified cataract; N42.9 Disorder of prostate, unspecified; G56.01 Carpal tunnel syndrome, right upper limb; G43.909 Migraine, unspecified, not intractable, without status migrainosus; I51.7 Cardiomegaly; H54.7 Unspecified visual loss; N40.0 Benign prostatic hyperplasia without lower urinary tract symptoms; R00.0 Tachycardia, unspecified; I49.3 Ventricular premature depolarization; J98.11 Atelectasis; K57.90 Diverticulosis of intestine, part unspecified, without perforation or abscess without bleeding; Z79.891 Long term (current) use of opiate analgesic; Z79.51 Long term (current) use of inhaled steroids; Z79.890 Hormone replacement therapy; Z79.899 Other long term (current) drug therapy; Z79.2 Long term (current) use of antibiotics; Z79.1 Long term (current) use of non-steroidal anti-inflammatories (NSAID); Z99.81 Dependence on supplemental oxygen; Z87.891 Personal history of nicotine dependence; Z82.49 Family history of ischemic heart disease and other diseases of the circulatory system; Z80.1 Family history of malignant neoplasm of trachea, bronchus and lung; Z88.0 Allergy status to penicillin; Z91.041 Radiographic dye allergy status
CPT/HCPCS: 96375; 96376; 96374; 99285; 36415; 94640 ×4; 94760; 93005; 83880; 80053; 80048; 83735; 84484 ×2; 85025; 85027; 85610; 85730; 71046; G0378 ×2; S0138; J2930 ×2; J2405

== ENCOUNTER 2019-04-21 15:46 | Inpatient (IN) | payer MEDICARE, BC ==
[2019-04-21 16:21] LABS: Basophils # (A) 0.1 k/uL (0-0.2); Basophils % (A) 1 %; Eosinophils # (A) 0.2 k/uL (0-0.7); Eosinophils % (A) 2 %; HCT 41.1 % (39.0-53.0); HGB 13.2 gm/dL (13.0-17.5); Lymphocytes # (A) 1.4 k/uL (1.0-4.8); Lymphocytes % (A) 16 %; MCH 32.6 pg (25.0-35.0); MCHC 32.1 g/dL (31.0-37.0); MCV 101.3 fL (80.0-100.0); Macrocytosis Slight; Mean Platelet Volume 8.7; Monocytes # (A) 0.5 k/uL (0-1.0); Monocytes % (A) 5 %; Neutrophils # (A) 6.6 k/uL (1.3-7.7); Neutrophils % (A) 75 %; Platelet Count 121 k/uL (150-450); RBC 4.06 m/uL (4.30-5.90); RDW 14.4 % (11.5-15.5); WBC 8.9 k/uL (3.8-10.6)
[2019-04-21] MEDS ORDERED: MAGNESIUM SULFATE-D5W PMX 1 GM in DEXTROSE/WATER 1 100ML.BAG IVPB ONE (16:39)
[2019-04-21] MEDS ORDERED: IPRATROPIUM-ALBUTEROL 3 ML NEB INHALATION STA (16:39)
[2019-04-21 16:54] LABS: INR 0.9 (<1.2); Partial Thromboplastin Time 26.7 sec (22.0-30.0)
--- NOTE | 2019-04-21 16:58 | XR ---
EXAMINATION TYPE: XR chest 2V DATE OF EXAM: 04/21/2019 COMPARISON: 04/07/2019 HISTORY: Short of breath TECHNIQUE: FINDINGS: Heart is normal. There is mild linear density at the left lung base. There is no heart fail ure. There are no hilar masses. Thoracic aorta is atheromatous. Bony thorax shows some osteopenia. Th ere is mild anterior wedging of several thoracic vertebra. IMPRESSION: There is mild subsegmental atelectasis at the lung bases not significantly different than old exam. No heart failure.
[2019-04-21 17:11] LABS: Albumin 3.7 g/dL (3.5-5.0); Calcium 8.6 mg/dL (8.4-10.2); Magnesium 2.2 mg/dL (1.6-2.3); Potassium 4.5 mmol/L (3.5-5.1); Total Protein 6.2 g/dL (6.3-8.2)
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
[2019-04-21] MEDS ORDERED: SODIUM CHLORIDE 0.9% 500 ML 500 ML IV STA (19:34)
[2019-04-21] MEDS ORDERED: SODIUM CHLORIDE 0.9% 1,000 ML IV SCH (19:45)
[2019-04-21] MEDS: IPRATROPIUM-ALBUTEROL 3 ML NEB INHALATION SCH (20:44)
[2019-04-21 20:49] LABS: Glucose,Whole Blood 181 mg/dL (75-99)
[2019-04-21] MEDS: CARBIDOPA-LEVODOPA 10-100 MG 1 EACH TAB PO SCH (21:15)
[2019-04-21] MEDS: DONEPEZIL 10 MG TAB PO SCH (21:15)
[2019-04-21] MEDS: GABAPENTIN 400 MG CAP PO SCH (21:15)
[2019-04-21] MEDS: TAMSULOSIN 0.4 MG CAP.ER.24H PO SCH (21:15)
[2019-04-21] MEDS: SENNOSIDES 8.6 MG TAB PO SCH (21:15)
[2019-04-21] MEDS: DOXYCYCLINE 100 MG CAP PO SCH (21:15)
[2019-04-21] MEDS: guaiFENesin 600 MG TABLET.ER PO SCH (21:15)
[2019-04-21] MEDS: METOPROLOL TARTRATE 12.5 MG TAB PO SCH (21:15)
[2019-04-21] MEDS: FINASTERIDE 5 MG TAB PO SCH (21:15)
[2019-04-21] MEDS: methylPREDNISolone SOD SUCCI 125 MG/2 ML VIAL IV SCH (23:17)
[2019-04-21] MEDS ORDERED: IPRATROPIUM-ALBUTEROL 3 ML NEB INHALATION PRN (23:47)
--- NOTE | 2019-04-21 23:54 | P.HPADDEND ---
H&P Addendum H&P Addendum Date: 04/21/19 Advanced Care Planning Active diagnoses: Acute on chronic hypoxic respiratory failure secondary to acute COPD exacerbation Background: The patient was admitted for treatment of acute COPD exacerbation, recurrent Discussion: Person(s) present and participating in discussion: The patient, myself, Summary: Discussed with the patient and his current condition he is aware of his advanced COPD status, we defined goals of therapy he is hoping to be able to go to his baseline where up until his last admission he was home for over 6 months without the need to revisit the hospital. However he stays home doesn't leave the house so that he doesn't get exposed to the cold especially between the months of January and July. Patient is hoping that he can go back home this time without having recurrent symptoms and for some to come to the hospital. He elected to be a full code and to pursue full measures including intubation in case of respiratory failure that is not responding to conventional therapies. Patient has quit smoking many years ago. He got air. Fire home he uses oxygen however only at that time I discussed with him to consider using it for at least 16 hours every day including nighttime hours. Patient also has a diagnosis of obstructive sleep apnea but was never able to tolerate CPAP machine. Patient lives with his daughter who takes care of cooking and grocery shopping for him. Patient feels that he has very good set up home he is just hoping for his symptoms to subside so he can stay home without the need to come to the hospital. Time spent: Total time spent face to face in education and discussion directly related to advanced care plannin minutes
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
[2019-04-22] MEDS: IPRATROPIUM-ALBUTEROL 3 ML NEB INHALATION SCH ×7 (00:09→23:18)
[2019-04-22] MEDS: HEPARIN SODIUM,PORCINE 5,000 UNIT/ML 1 ML VIAL SQ SCH ×4 (02:04→21:25)
[2019-04-22 06:03] LABS: Glucose,Whole Blood 139 mg/dL (75-99)
[2019-04-22] MEDS: INSULIN ASPART (NovoLOG) 100 UNIT/ML VIAL SQ SCH ×4 (06:10→21:27)
[2019-04-22] MEDS: methylPREDNISolone SOD SUCCI 125 MG/2 ML VIAL IV SCH ×3 (06:10→21:25)
[2019-04-22] MEDS: LEVOTHYROXINE 88 MCG TAB PO SCH (06:11)
[2019-04-22] MEDS: PANTOPRAZOLE 40 MG TABLET PO SCH (06:11)
[2019-04-22] MEDS: SYMBICORT 160-4.5 MCG INHALER INHALATION SCH ×2 (09:10→19:34)
[2019-04-22] MEDS: guaiFENesin 600 MG TABLET.ER PO SCH ×2 (09:28→21:26)
[2019-04-22] MEDS: DOXYCYCLINE 100 MG CAP PO SCH ×2 (09:29→21:42)
[2019-04-22] MEDS: SENNOSIDES 8.6 MG TAB PO SCH ×2 (09:29→21:26)
[2019-04-22] MEDS: MULTIVITAMINS, THERA 1 EACH TAB PO SCH (09:29)
[2019-04-22] MEDS: GABAPENTIN 400 MG CAP PO SCH ×3 (09:29→21:26)
[2019-04-22] MEDS: FERROUS SULFATE 325 MG TAB PO SCH (09:29)
[2019-04-22] MEDS: POTASSIUM CHLORIDE ER 10 MEQ TAB.ER.PRT PO SCH (09:29)
[2019-04-22] MEDS: CARBIDOPA-LEVODOPA 10-100 MG 1 EACH TAB PO SCH ×3 (09:29→21:42)
[2019-04-22] MEDS: METOPROLOL TARTRATE 12.5 MG TAB PO SCH ×2 (09:29→21:26)
[2019-04-22] MEDS: FUROSEMIDE 20 MG TAB PO SCH (09:29)
[2019-04-22 11:50] LABS: Glucose,Whole Blood 119 mg/dL (75-99)
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
--- NOTE | 2019-04-22 14:25 | P.PN ---
Subjective Progress Note Date: 04/22/19 The patient is an 84-year-old male with a PMH of advanced COPD with chronic hypoxic respiratory failure, hypertension, hyperlipidemia, rheumatoid arthritis, BPH who presented to the ED with complaints of worsening shortness of breath. Of note, the patient was recently discharged on 04/08 when he was also admitted for COPD exacerbation. During this presentation, the patient noted that he now often feels short of breath even at rest, though he does use supplemental oxygen while sleeping. The patient also had endorsed compliance with all of his medications. At time of interview, the patient noted that his breathing has improved since admission. Though he continues to have wheezing along with chest congestion. He denied fever, chills, chest pain, nausea, vomiting, or diarrhea. Objective - Vital Signs Vital signs: Vital Signs Temp 97.9 F 04/22/19 12:00 Pulse 88 04/22/19 12:01 Resp 16 04/22/19 12:00 BP 111/68 04/22/19 12:00 Pulse Ox 95 04/22/19 12:00 Intake & Output 04/21/19 04/22/19 04/22/19 18:59 06:59 18:59 Intake Total 720 Output Total 1000 Balance -1000 720 Weight 104.326 kg 98.2 kg Intake: Oral 720 Output: Urine 1000 - Exam General: Non-toxic, in no acute distress, appears stated age, overweight HEENT: NC/AT, anicteric sclerae, moist conjunctiva, no lid-lag, PERRLA Cardiovascular: S1/S2 wnl, no murmurs, rubs, or gallops Lungs: Bilateral expiratory wheezing with scattered rhonchi and somewhat poor air entry, normal respiratory effort, no accessory muscle use Abdominal: Soft, non-tender, non-distended, no guarding, rebound, or rigidity Skin: Warm, dry Extremities: No edema or contractures Psychiatric: Alert and oriented to person, place and time, appropriate affect Neuro: CN II-XII grossly intact, Strength 5/5 in all 4 extremities, Speech intact, Sensation to light touch grossly intact throughout - Labs CBC & Chem 7: 04/21/19 15:56 04/21/19 16:50 Labs: Abnormal Lab Results - Last 24 Hours (Table) 04/21/19 04/21/19 04/21/19 Range/Units 15:56 16:50 20:47 RBC 4.06 L (4.30-5.90) m/uL MCV 101.3 H (80.0-100.0) fL Plt Count 121 L (150-450) k/uL Carbon Dioxide 33 H (22-30) mmol/L Glucose 102 H (74-99) mg/dL POC Glucose (mg/dL) 181 H (75-99) mg/dL Total Protein 6.2 L (6.3-8.2) g/dL 04/22/19 04/22/19 Range/Units 06:00 11:45 RBC (4.30-5.90) m/uL MCV (80.0-100.0) fL Plt Count (150-450) k/uL Carbon Dioxide (22-30) mmol/L Glucose (74-99) mg/dL POC Glucose (mg/dL) 139 H 119 H (75-99) mg/dL Total Protein (6.3-8.2) g/dL Assessment and Plan Plan: Advanced acute COPD exacerbation -Continue with Solu-Medrol -Insulin supplementation scale -C/w doxycycline -Duonebs QID and q4h prn -Pulmonary recs appreciated -Possible Bronchoscopy -Consider three-week steroid taper along with a maintenance steroid dose upon discharge -Supplemental oxygen Chronic conditions: Hypertension, hypertension, hyperlipidemia, Parkinson's -Continue with home meds DVT prophylaxis -Heparin Discussed with: Patient Anticipated discharge date: 2-[address]: Home A total of 35 minutes was spent on the care of this complex patient more than 50% of the time was spent in counseling and care coordination.
[2019-04-22] MEDS: LORazepam 0.5 MG TAB PO PRN (16:19)
[2019-04-22 16:52] LABS: Glucose,Whole Blood 135 mg/dL (75-99)
[2019-04-22 20:52] LABS: Glucose,Whole Blood 187 mg/dL (75-99)
[2019-04-22] MEDS: DONEPEZIL 10 MG TAB PO SCH (21:26)
[2019-04-22] MEDS: TAMSULOSIN 0.4 MG CAP.ER.24H PO SCH (21:27)
[2019-04-22] MEDS: HYDROcodone/APAP 10-325MG 1 EACH TAB PO PRN (21:27)
[2019-04-22] MEDS: FINASTERIDE 5 MG TAB PO SCH (21:27)
[2019-04-22] MEDS: ATORVASTATIN 20 MG TAB PO SCH (21:27)
[2019-04-23] MEDS: methylPREDNISolone SOD SUCCI 125 MG/2 ML VIAL IV SCH ×4 (00:04→17:54)
[2019-04-23] MEDS: IPRATROPIUM-ALBUTEROL 3 ML NEB INHALATION SCH ×5 (03:11→21:31)
[2019-04-23 06:06] LABS: Glucose,Whole Blood 203 mg/dL (75-99)
[2019-04-23] MEDS: LEVOTHYROXINE 88 MCG TAB PO SCH (06:45)
[2019-04-23] MEDS: PANTOPRAZOLE 40 MG TABLET PO SCH (06:45)
[2019-04-23] MEDS: INSULIN ASPART (NovoLOG) 100 UNIT/ML VIAL SQ SCH ×4 (06:46→20:35)
[2019-04-23] MEDS: SYMBICORT 160-4.5 MCG INHALER INHALATION SCH ×2 (08:19→21:31)
[2019-04-23] MEDS: MULTIVITAMINS, THERA 1 EACH TAB PO SCH (08:44)
[2019-04-23] MEDS: DOXYCYCLINE 100 MG CAP PO SCH ×2 (08:44→22:00)
[2019-04-23] MEDS: NON FORMULARY DRUG (Morphine Pain Pump 1 DOSE) MISCELLANE SCH (08:44)
[2019-04-23] MEDS: HEPARIN SODIUM,PORCINE 5,000 UNIT/ML 1 ML VIAL SQ SCH ×2 (08:44→17:53)
[2019-04-23] MEDS: GABAPENTIN 400 MG CAP PO SCH ×3 (08:44→22:00)
[2019-04-23] MEDS: POTASSIUM CHLORIDE ER 10 MEQ TAB.ER.PRT PO SCH (08:45)
[2019-04-23] MEDS: FUROSEMIDE 20 MG TAB PO SCH (08:45)
[2019-04-23] MEDS: HYDROcodone/APAP 10-325MG 1 EACH TAB PO PRN (08:45)
[2019-04-23] MEDS: FERROUS SULFATE 325 MG TAB PO SCH (08:45)
[2019-04-23] MEDS: SENNOSIDES 8.6 MG TAB PO SCH ×2 (08:45→20:34)
[2019-04-23] MEDS: CARBIDOPA-LEVODOPA 10-100 MG 1 EACH TAB PO SCH ×3 (08:45→21:59)
[2019-04-23] MEDS: METOPROLOL TARTRATE 12.5 MG TAB PO SCH ×2 (08:45→20:34)
[2019-04-23] MEDS: guaiFENesin 600 MG TABLET.ER PO SCH ×2 (08:46→20:34)
--- NOTE | 2019-04-23 11:21 | P.PN ---
Subjective Progress Note Date: 04/23/19 Principal diagnosis: acute COPD exacerbation tracheobronchitis 84-year old patient with known history of COPD, severe with multiple has position for COPD exacerbation maintained on oxygen and maintained on DuoNeb nebulized treatments around the clock, maintain Breo . The patient also has a obstructive sleep apnea with an AHI of 34. He was given a BiPAP unit at the pressure of 12/8. Nevertheless hasn't been able to use it. He is coming in with increased cough and congestion. No wheezing typically of an acute COPD exacerbation. Has significant respiratory secretions. Chest x-ray shows atelectatic changes in lung bases bilaterally. No leukocytosis. Influenza. Has not been done yet. No fever. No chills. No altered mentation. No major swelling in lower extremities above and beyond his baseline. The exact trigger for COPD exacerbation is not clear. He is known to have other comorbidities including RA, hypertension, hypothyroidism, chronic back pain, BPH, previous history of CVA, CAD, dementia and anxiety and acid reflux. He has had previous bronchoscopies. His bronchoscopies yielded gram-negative bacteria in the past including Pseudomonas and this was back in 2017. No hemoptysis. No pleurisy. On 04/23/2019 patient seen in follow-up on selective care unit, still quite bronchospastic and congested, but she is able to bring up purulent sputum. is on doxycycline for antibiotic coverage, IV steroids and nebulized bronchodilators. denies any complaints of chest pain, no hemoptysis, history of x-ray showed mild subsegmental atelectasis at the lung bases, in no acute pulmonary process Objective - Vital Signs Vital signs: Vital Signs Temp 98.4 F 04/23/19 03:30 Pulse 86 04/23/19 08:32 Resp 22 04/23/19 03:30 BP 121/72 04/23/19 03:30 Pulse Ox 94 L 04/23/19 03:30 Intake & Output 04/22/19 04/23/19 04/23/19 18:59 06:59 18:59 Intake Total 1080 540 120 Balance 1080 540 120 Intake: Oral 1080 540 120 Other: # Voids 1 2 0 - Exam GENERAL EXAM: Alert, very pleasant, 84-year-old white male on 2 L of oxygen with a pulse ox of 94%comfortable in no apparent distress. HEAD: Normocephalic/atraumatic. EYES: Normal reaction of pupils, equal size. Conjunctiva pink, sclera white. NOSE: Clear with pink turbinates. THROAT: No erythema or exudates. NECK: No masses, no JVD, no thyroid enlargement, no adenopathy. CHEST: No chest wall deformity. Symmetrical expansion. LUNGS: Equal air entry with diffuse wheezes and rhonchi CVS: Regular rate and rhythm, normal S1 and S2, no gallops, no murmurs, no rubs ABDOMEN: Soft, nontender. No hepatosplenomegaly, normal bowel sounds, no guarding or rigidity. EXTREMITIES: No clubbing, no edema, no cyanosis, 2+ pulses and upper and lower extremities. MUSCULOSKELETAL: Muscle strength and tone normal. SPINE: No scoliosis or deformity SKIN: No rashes CENTRAL NERVOUS SYSTEM: Alert and oriented -3. No focal deficits, tone is normal in all 4 extremities. PSYCHIATRIC: Alert and oriented -3. Appropriate affect. Intact judgment and insight. - Labs CBC & Chem 7: 04/21/19 15:56 04/21/19 16:50 Labs: Abnormal Lab Results - Last 24 Hours (Table) 04/22/19 04/22/19 04/22/19 Range/Units 11:45 16:48 20:45 POC Glucose (mg/dL) 119 H 135 H 187 H (75-99) mg/dL 04/23/19 Range/Units 06:05 POC Glucose (mg/dL) 203 H (75-99) mg/dL Assessment and Plan Plan: 1 Acute exacerbation of chronic obstructive pulmonary disease. 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 Has been infected in the past and gram-negative bacteria. He is coming in for another presented for COPD exacerbation. His chest x-ray is free of any acute pulmonary infiltrates. Diagnosed having obstructive sleep apnea, unable to tolerate CPAP therapy 2 Acute on chronic hypoxic respiratory failure secondary to above 3 Previous history of chronic tobacco dependence 4 Hypertension 5 Hyperlipidemia 6 Rheumatoid arthritis 7 Hypothyroidism 8 Gastroesophageal reflux disease 9 Benign prostatic hyperplasia 10 Restless leg syndrome 11 Chronic back pain 12 severe obstructive sleep apnea with an AHI of 34. Unable to tolerate BiPAP. Plan: Continue with current treatment, we'll send a sputum for culture, still quite bronchospastic and dyspneic, and did not require BiPAP support last night, he is maintaining oxygenation on 2 L of oxygen. Chest x-ray was without any evidence of acute pulmonary process. Awaiting results of the influenza screen. We'll continue to follow I performed a history & physical examination of the patient and discussed their management with my nurse practitioner, Marta Herrera. I reviewed the nurse practitioner's note and agree with the documented findings and plan of care. Lung sounds are positive for diffuse wheezes throughout the lung levi. The findings and the impression was discussed with the patient. I attest to the documentation by the nurse practitioner. Time with Patient: Less than 30
[2019-04-23 11:50] LABS: Glucose,Whole Blood 149 mg/dL (75-99)
[2019-04-23 11:56] LABS: Glucose,Whole Blood 175 mg/dL (75-99)
--- NOTE | 2019-04-23 14:55 | P.PN ---
Subjective Progress Note Date: 04/23/19 Principal diagnosis: COPD exacerbation Patient was seen and examined. No acute events overnight. Patient continues to report shortness of breath especially with ambulating to the bathroom. He complains of cough but is unable to cough up sputum. Percussion for his stress has been ordered. He denies any chest pain or palpitations and no nausea or vomiting. No fever or chills. States that he is less than 50% back to baseline. Objective - Vital Signs Vital signs: Vital Signs Temp 98.0 F 04/23/19 07:00 Pulse 88 04/23/19 11:44 Resp 20 04/23/19 08:00 BP 115/61 04/23/19 07:00 Pulse Ox 92 L 04/23/19 07:00 Intake & Output 04/22/19 04/23/19 04/23/19 18:59 06:59 18:59 Intake Total 1080 540 430 Balance 1080 540 430 Intake: Oral 1080 540 430 Other: Voiding Method Urinal # Voids 1 2 0 - Exam General: [non toxic], [mild distress speaking 2-3 were sentences], [appears at stated age] Derm: [warm], [dry] Head: [atraumatic], [normocephalic], [symmetric] Eyes: [EOMI], [no lid lag], [anicteric sclera] Mouth: [no lip lesion], [mucus membranes moist] Cardiovascular: [S1S2 reg], [no murmur], [positive DP pulse bilateral], Lungs: [Diffuse wheezing bilateral], [no rhonchi, no rales] , [no accessory muscle use] Abdominal: [soft], [ nontender to palpation], [no guarding], [no appreciable organomegaly] Ext: [no gross muscle atrophy], [no edema], [no contractures] Neuro: [no focal neuro deficits] Psych: [Alert], [oriented], [appropriate affect] - Labs CBC & Chem 7: 04/21/19 15:56 04/21/19 16:50 Labs: Abnormal Lab Results - Last 24 Hours (Table) 04/22/19 04/22/19 04/23/19 Range/Units 16:48 20:45 06:05 POC Glucose (mg/dL) 135 H 187 H 203 H (75-99) mg/dL 04/23/19 04/23/19 Range/Units 11:40 11:55 POC Glucose (mg/dL) 149 H 175 H (75-99) mg/dL Assessment and Plan Assessment: Acute COPD exacerbation Chronic hypoxic respiratory failure Macrocytosis Chronic conditions: Hypertension, dyslipidemia, Parkinson's disorder Patient has improved slightly since admission. States that he is less than 50% at baseline. We'll continue DuoNeb scheduled and as needed [id number]. Restart Symbicort. Continue doxycycline for acute bronchitis. Chest x-ray clean and pneumonia. Continue Mucinex. Continue Solu-Medrol. Check B12 and folic acid for macrocytosis. Patient is pending clinical improvement. Pulmonology is on board. Anticipated DC in 1-2 days.
[2019-04-23 16:52] LABS: Glucose,Whole Blood 174 mg/dL (75-99)
[2019-04-23] MEDS ORDERED: ONDANSETRON 4 MG/2 ML VIAL IVP PRN (19:01)
[2019-04-23 20:22] LABS: Glucose,Whole Blood 114 mg/dL (75-99)
[2019-04-23] MEDS: ATORVASTATIN 20 MG TAB PO SCH (20:34)
[2019-04-23] MEDS: DONEPEZIL 10 MG TAB PO SCH (20:34)
[2019-04-23] MEDS: FINASTERIDE 5 MG TAB PO SCH (20:34)
[2019-04-23] MEDS: TAMSULOSIN 0.4 MG CAP.ER.24H PO SCH (20:34)
[2019-04-24] MEDS: IPRATROPIUM-ALBUTEROL 3 ML NEB INHALATION SCH ×7 (00:15→23:08)
[2019-04-24] MEDS: methylPREDNISolone SOD SUCCI 125 MG/2 ML VIAL IV SCH ×2 (00:19→06:17)
[2019-04-24] MEDS: HEPARIN SODIUM,PORCINE 5,000 UNIT/ML 1 ML VIAL SQ SCH ×4 (00:20→23:24)
[2019-04-24] MEDS: LEVOTHYROXINE 88 MCG TAB PO SCH (06:18)
[2019-04-24 07:02] LABS: Glucose,Whole Blood 187 mg/dL (75-99)
[2019-04-24] MEDS: FUROSEMIDE 20 MG TAB PO SCH (08:05)
[2019-04-24] MEDS: SENNOSIDES 8.6 MG TAB PO SCH ×2 (08:05→20:55)
[2019-04-24] MEDS: MULTIVITAMINS, THERA 1 EACH TAB PO SCH (08:05)
[2019-04-24] MEDS: FERROUS SULFATE 325 MG TAB PO SCH (08:05)
[2019-04-24] MEDS: guaiFENesin 600 MG TABLET.ER PO SCH ×2 (08:06→20:55)
[2019-04-24] MEDS: GABAPENTIN 400 MG CAP PO SCH ×3 (08:06→20:55)
[2019-04-24] MEDS: METOPROLOL TARTRATE 12.5 MG TAB PO SCH ×2 (08:06→20:55)
[2019-04-24] MEDS: PANTOPRAZOLE 40 MG TABLET PO SCH (08:06)
[2019-04-24] MEDS: POTASSIUM CHLORIDE ER 10 MEQ TAB.ER.PRT PO SCH (08:06)
[2019-04-24] MEDS: CARBIDOPA-LEVODOPA 10-100 MG 1 EACH TAB PO SCH ×3 (08:07→20:56)
[2019-04-24] MEDS: INSULIN ASPART (NovoLOG) 100 UNIT/ML VIAL SQ SCH ×4 (08:16→20:56)
[2019-04-24] MEDS: DOXYCYCLINE 100 MG CAP PO SCH ×2 (08:18→20:56)
[2019-04-24] MEDS: SYMBICORT 160-4.5 MCG INHALER INHALATION SCH ×2 (08:20→22:30)
--- NOTE | 2019-04-24 09:21 | P.PN ---
Subjective Progress Note Date: 04/24/19 Principal diagnosis: COPD exacerbation Patient was seen and examined. No acute events overnight. Patient continues to report shortness of breath but significantly improved from admission. He complains of wet cough but is unable to cough up sputum. He has been compliant with percussion of the chest. He denies any chest pain or palpitations and no nausea or vomiting. No fever or chills. Objective - Vital Signs Vital signs: Vital Signs Temp 98.3 F 04/24/19 04:25 Pulse 90 04/24/19 08:38 Resp 20 04/24/19 04:25 BP 110/65 04/24/19 04:25 Pulse Ox 95 04/24/19 08:23 Intake & Output 04/23/19 04/24/19 04/24/19 18:59 06:59 18:59 Intake Total 1110 150 Balance 1110 150 Intake: Oral 1110 150 Other: Voiding Method Urinal Urinal # Voids 0 2 # Bowel Movements 1 - Exam General: [non toxic], [no distress speaking 2-3 were sentences], [appears at stated age] Derm: [warm], [dry] Head: [atraumatic], [normocephalic], [symmetric] Eyes: [EOMI], [no lid lag], [anicteric sclera] Mouth: [no lip lesion], [mucus membranes moist] Cardiovascular: [S1S2 reg], [no murmur], [positive DP pulse bilateral], Lungs: [End expiratory wheezing in the upper lung levi], [no rhonchi, no rales] , [no accessory muscle use] Abdominal: [soft], [ nontender to palpation], [no guarding], [no appreciable organomegaly] Ext: [no gross muscle atrophy], [no edema], [no contractures] Neuro: [no focal neuro deficits] Psych: [Alert], [oriented], [appropriate affect] - Labs CBC & Chem 7: 04/21/19 15:56 04/21/19 16:50 Labs: Abnormal Lab Results - Last 24 Hours (Table) 04/23/19 04/23/19 04/23/19 Range/Units 11:40 11:55 16:51 POC Glucose (mg/dL) 149 H 175 H 174 H (75-99) mg/dL 04/23/19 04/24/19 Range/Units 20:21 07:00 POC Glucose (mg/dL) 114 H 187 H (75-99) mg/dL Microbiology - Last 24 Hours (Table) 04/23/19 10:20 Gram Stain - Preliminary Sputum Sputum Culture - Preliminary Assessment and Plan Assessment: Acute COPD exacerbation Chronic hypoxic respiratory failure Macrocytosis Chronic conditions: Hypertension, dyslipidemia, Parkinson's disorder Patient has continued to improve since admission but is still quite b ronchospastic. He is saturating 90s on baseline 2 L O2. We'll continue DuoNeb scheduled and as needed [id number]. Continue Symbicort. Continue doxycycline for acute bronchitis. Chest x-ray clean and pneumonia. Continue Mucinex. We will decrease Medrol from 60 mg IV every 6 hours to 40 mg IV every 8 hours. Sputum cultures prelim negative. B12 and folic acid for macrocytosis pending. Patient is pending clinical improvement. Pulmonology is on board. Anticipated DC tomorrow if patient continues to improve.
[2019-04-24] MEDS: NON FORMULARY DRUG (Morphine Pain Pump 1 DOSE) MISCELLANE SCH ×3 (11:33→23:24)
[2019-04-24 12:01] LABS: Glucose,Whole Blood 156 mg/dL (75-99)
--- NOTE | 2019-04-24 12:06 | P.PN ---
Subjective Progress Note Date: 04/24/19 Principal diagnosis: Acute exacerbation of chronic obstructive pulmonary disease, complicated by purulent tracheobronchitis 84-year old patient with known history of COPD, severe with multiple has position for COPD exacerbation maintained on oxygen and maintained on DuoNeb nebulized treatments around the clock, maintain Breo . The patient also has a obstructive sleep apnea with an AHI of 34. He was given a BiPAP unit at the pressure of 12/8. Nevertheless hasn't been able to use it. He is coming in with increased cough and congestion. No wheezing typically of an acute COPD exacerbation. Has significant respiratory secretions. Chest x-ray shows atelectatic changes in lung bases bilaterally. No leukocytosis. Influenza. Has not been done yet. No fever. No chills. No altered mentation. No major swelling in lower extremities above and beyond his baseline. The exact trigger for COPD exacerbation is not clear. He is known to have other comorbidities including RA, hypertension, hypothyroidism, chronic back pain, BPH, previous history of CVA, CAD, dementia and anxiety and acid reflux. He has had previous bronchoscopies. His bronchoscopies yielded gram-negative bacteria in the past including Pseudomonas and this was back in 2017. No hemoptysis. No pleurisy. On 04/23/2019 patient seen in follow-up on selective care unit, still quite bronchospastic and congested, but she is able to bring up purulent sputum. is on doxycycline for antibiotic coverage, IV steroids and nebulized bronchodilators. denies any complaints of chest pain, no hemoptysis, history of x-ray showed mild subsegmental atelectasis at the lung bases, in no acute pulmonary process. The patient is seen today 04/24/2019 in follow-up on the regular medical floor. He is currently sitting up at the bedside. Awake and alert in no acute distress. Breathing about the same today as compared to yesterday. He has a loose nonproductive cough. No chills or night sweats. Continue O2 saturations in the mid 90s on 2 L/m per nasal cannula. Afebrile. Hemodynamically stable. Sputum culture pending. Influenza screen negative. He remains on DuoNeb inhalations, Symbicort, IV Solu-Medrol, doxycycline. Objective - Vital Signs Vital signs: Vital Signs Temp 98.3 F 04/24/19 04:25 Pulse 90 01/14/20 08:38 Resp 20 04/24/19 04:25 BP 110/65 04/24/19 04:25 Pulse Ox 95 04/24/19 08:23 Intake & Output 04/23/19 04/24/19 04/24/19 18:59 06:59 18:59 Intake Total 1110 150 Balance 1110 150 Intake: Oral 1110 150 Other: Voiding Method Urinal Urinal # Voids 0 2 # Bowel Movements 1 - Exam GENERAL EXAM: Alert, very pleasant, 84-year-old male patient on 2 L of oxygen with a pulse ox of 94%, comfortable in no apparent distress. HEAD: Normocephalic/atraumatic. EYES: Normal reaction of pupils, equal size. Conjunctiva pink, sclera white. NOSE: Clear with pink turbinates. THROAT: No erythema or exudates. NECK: No masses, no JVD, no thyroid enlargement, no adenopathy. CHEST: No chest wall deformity. Symmetrical expansion. LUNGS: Equal air entry with diffuse wheezes and rhonchi CVS: Regular rate and rhythm, normal S1 and S2, no gallops, no murmurs, no rubs ABDOMEN: Soft, nontender. No hepatosplenomegaly, normal bowel sounds, no guarding or rigidity. EXTREMITIES: No clubbing, no edema, no cyanosis, 2+ pulses and upper and lower extremities. MUSCULOSKELETAL: Muscle strength and tone normal. SPINE: No scoliosis or deformity SKIN: No rashes CENTRAL NERVOUS SYSTEM: No focal deficits, tone is normal in all 4 extremities. PSYCHIATRIC: Alert and oriented -3. Appropriate affect. Intact judgment and insight. - Labs CBC & Chem 7: 04/21/19 15:56 04/21/19 16:50 Labs: Abnormal Lab Results - Last 24 Hours (Table) 04/23/19 04/23/19 04/24/19 Range/Units 16:51 20:21 07:00 POC Glucose (mg/dL) 174 H 114 H 187 H (75-99) mg/dL Microbiology - Last 24 Hours (Table) 04/23/19 10:20 Gram Stain - Preliminary Sputum Sputum Culture - Preliminary Assessment and Plan Assessment: 1 Acute exacerbation of chronic obstructive pulmonary disease. 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 Has been infected in the past with Serratia marcescens and Klebsiella pneumoniae as well as Pseudomonas. His chest x-ray is free of any acute pulmonary infiltrates. He has been slow to progress. The letty n is for bronchoscopy with BAL in the a.m. 2 Acute on chronic hypoxic respiratory failure secondary to above 3 Previous history of chronic tobacco dependence 4 Hypertension 5 Hyperlipidemia 6 Rheumatoid arthritis 7 Hypothyroidism 8 Gastroesophageal reflux disease 9 Benign prostatic hyperplasia 10 Restless leg syndrome 11 Chronic back pain 12 Severe obstructive sleep apnea with an AHI of 34. Unable to tolerate BiPAP. Plan: The patient was seen and evaluated by Dr. Diaz. He has been slow to progress. Not much improvement. We'll go ahead and plan for bronchoscopy with BAL in the a.m. Patient is agreeable. In the interim, we'll continue with the current treatment plan. Increase his activity as tolerated. We will continue to follow. I, the cosigning physician, performed a history & physical examination of the patient. Lungs sounds bilateral end expiratory wheeze, diminished Maintaining good O2 saturations in the 90s on 2 L/m per nasal cannula. I discussed the assessment and plan of care with my nurse practitioner, Hailey Oh. I attest to the above note as dictated by her.
[2019-04-24 16:51] LABS: Folate, Serum 21.6 ng/mL
[2019-04-24] MEDS: methylPREDNISolone SOD SUCCI 40 MG/ML 1 ML VIAL IV SCH ×2 (16:55→23:24)
[2019-04-24] MEDS: LORazepam 0.5 MG TAB PO PRN (16:55)
[2019-04-24 17:05] LABS: Glucose,Whole Blood 118 mg/dL (75-99)
[2019-04-24 20:45] LABS: Glucose,Whole Blood 141 mg/dL (75-99)
[2019-04-24] MEDS: ATORVASTATIN 20 MG TAB PO SCH (20:55)
[2019-04-24] MEDS: DONEPEZIL 10 MG TAB PO SCH ×2 (20:55→20:56)
[2019-04-24] MEDS: FINASTERIDE 5 MG TAB PO SCH (20:56)
[2019-04-24] MEDS: TAMSULOSIN 0.4 MG CAP.ER.24H PO SCH (20:56)
[2019-04-25] MEDS: IPRATROPIUM-ALBUTEROL 3 ML NEB INHALATION SCH ×6 (03:02→23:07)
[2019-04-25] MEDS: LEVOTHYROXINE 88 MCG TAB PO SCH (06:18)
[2019-04-25] MEDS: SYMBICORT 160-4.5 MCG INHALER INHALATION SCH ×2 (06:59→19:18)
[2019-04-25 07:17] LABS: Glucose,Whole Blood 133 mg/dL (75-99)
[2019-04-25] MEDS: INSULIN ASPART (NovoLOG) 100 UNIT/ML VIAL SQ SCH ×4 (07:27→21:42)
[2019-04-25] MEDS: FUROSEMIDE 20 MG TAB PO SCH (08:30)
[2019-04-25] MEDS: guaiFENesin 600 MG TABLET.ER PO SCH ×2 (08:30→21:45)
[2019-04-25] MEDS: GABAPENTIN 400 MG CAP PO SCH ×3 (08:30→21:44)
[2019-04-25] MEDS: POTASSIUM CHLORIDE ER 10 MEQ TAB.ER.PRT PO SCH (08:31)
[2019-04-25] MEDS: HEPARIN SODIUM,PORCINE 5,000 UNIT/ML 1 ML VIAL SQ SCH ×3 (08:31→23:31)
[2019-04-25] MEDS: PANTOPRAZOLE 40 MG TABLET PO SCH (08:31)
[2019-04-25] MEDS: DOXYCYCLINE 100 MG CAP PO SCH ×2 (08:31→21:59)
[2019-04-25] MEDS: METOPROLOL TARTRATE 12.5 MG TAB PO SCH ×2 (08:31→21:43)
[2019-04-25] MEDS: methylPREDNISolone SOD SUCCI 40 MG/ML 1 ML VIAL IV SCH ×3 (08:31→23:32)
[2019-04-25] MEDS: CARBIDOPA-LEVODOPA 10-100 MG 1 EACH TAB PO SCH ×3 (08:32→22:39)
[2019-04-25 11:34] LABS: Glucose,Whole Blood 128 mg/dL (75-99)
[2019-04-25] MEDS ORDERED: LIDOCAINE 1% INJ 10MG/ML (20 ML MDV) ONE (13:00)
[2019-04-25] MEDS ORDERED: fentaNYL (PF) 50 MCG/ML 2 ML AMP ONE (13:00)
[2019-04-25] MEDS ORDERED: PROPOFOL 10 MG/ML 20 ML VIAL IV ONE (13:00)
[2019-04-25] MEDS ORDERED: LACTATED RINGERS 1,000 ML IV ONE ×2 (13:04)
[2019-04-25] MEDS ORDERED: LIDOCAINE 2% INJ 20 MG/ML INTRATRACH ONE (13:32)
--- NOTE | 2019-04-25 14:12 | P.PN ---
Subjective Progress Note Date: 04/25/19 Principal diagnosis: COPD exacerbation Patient was seen and examined this morning. No acute events overnight. Patient continues to report shortness of breath but significantly improved from admission. He complains of wet cough but is unable to cough up sputum. He has been compliant with percussion of the chest. Patient states that his shortness of breath only comes with exertion but with his little as walking from his bed to the bathroom. He denies any chest pain or palpitations and no nausea or vomiting. No fever or chills. Objective - Vital Signs Vital signs: Vital Signs Temp 97.9 F 04/25/19 12:51 Pulse 68 04/25/19 12:51 Resp 16 04/25/19 12:51 BP 117/69 04/25/19 12:51 Pulse Ox 92 L 04/25/19 12:51 Intake & Output 04/24/19 04/25/19 04/25/19 18:59 06:59 18:59 Intake Total 540 200 Balance 540 200 Intake: IV 200 Oral 540 Other: # Voids 3 2 2 - Exam General: [non toxic], [no distress speaking 2-3 were sentences], [appears at stated age] Derm: [warm], [dry] Head: [atraumatic], [normocephalic], [symmetric] Eyes: [EOMI], [no lid lag], [anicteric sclera] Mouth: [no lip lesion], [mucus membranes moist] Cardiovascular: [S1S2 reg], [no murmur], [positive DP pulse bilateral], Lungs: [End expiratory wheezing in the upper lung levi], [no rhonchi, no rales] , [no accessory muscle use] Abdominal: [soft], [ nontender to palpation], [no guarding], [no appreciable organomegaly] Ext: [no gross muscle atrophy], [no edema], [no contractures] Neuro: [no focal neuro deficits] Psych: [Alert], [oriented], [appropriate affect] - Labs CBC & Chem 7: 04/21/19 15:56 04/21/19 16:50 Labs: Abnormal Lab Results - Last 24 Hours (Table) 04/24/19 04/24/19 04/25/19 Range/Units 17:03 20:44 07:16 POC Glucose (mg/dL) 118 H 141 H 133 H (75-99) mg/dL 04/25/19 Range/Units 11:32 POC Glucose (mg/dL) 128 H (75-99) mg/dL Microbiology - Last 24 Hours (Table) 04/23/19 10:20 Gram Stain - Final Sputum Sputum Culture - Final Assessment and Plan Assessment: Acute COPD exacerbation Chronic hypoxic respiratory failure Macrocytosis Chronic conditions: Hypertension, dyslipidemia, Parkinson's disorder Patient has continued to improve since admission but is still quite bronchospastic. He is saturating 90s on baseline 2 L O2. We'll continue DuoNeb scheduled and as needed [id number]. Continue Symbicort. Continue doxycycline for acute bronchitis. Chest x-ray clean of pneumonia. Continue Mucinex. We will continue Medrol 40 mg IV every 8 hours. Sputum cultures prelim negative. B12 and folic acid for macrocytosis within normal limits. Plans were bronchoalveolar lavage today. Patient is pending clinical improvement. Pulmonology is on board. Anticipated DC in 1-2 days.
--- NOTE | 2019-04-25 14:47 | PCN ---
PROCEDURE NOTE PROCEDURE: Bronchoscopy, bronchoalveolar lavage of the left upper lobe lingula, and left lower lobe, and random bronchial washings from both lungs. PREOPERATIVE DIAGNOSIS: Acute exacerbation of COPD, chronic bronchitis, difficulty clearing secretions. POSTOPERATIVE DIAGNOSIS: Acute exacerbation of COPD, chronic bronchitis, difficulty clearing secretions, tracheobronchomalacia. PROCEDURE DESCRIPTION: The patient was prepared according to the bronchoscopy protocol. O2 was applied via Ventimask. The patient was brought into the bronchoscopy suite, and he was placed in a supine position. After adequate IV conscious sedation, we monitored his O2 saturation continuously. Blood pressure was intermittently monitored, and cardiac rhythm was continuously monitored. Then, a few mL of lidocaine were instilled into the right naris. The bronchoscope was advanced through the right naris down to the area of the vocal cords. There was some whitish secretions noted on the vocal cords, which were easily suctioned. Then, lidocaine was applied over the vocal cords, and the bronchoscope was advanced down further to the trachea. Thorough examination was done of the trachea, laine, left upper lobe, lingula, left lower lobe, right upper lobe, right middle lobe, and right lower lobe. There was evidence of loose secretions, purulent and milky in color, scattered in both lungs, and involving mostly the left upper lobe lingula, and to some extent the right middle lobe and right lower lobe. Lavage of the left upper lobe and lingula were done. Washings were also done of the left lower lobe, right middle lobe, and right lower lobe. The procedure was well tolerated, the fluid obtained was sent for different diagnostic studies, mostly cultures and for cytology. During the procedure, patient was clearly noted to have collapsible airways consistent with tracheobronchomalacia. Again, procedure was well tolerated, no evidence of any immediate complications. MMODL / IJN: [id number] /
--- NOTE | 2019-04-25 15:35 | P.PN ---
Subjective Progress Note Date: 04/25/19 Principal diagnosis: acute COPD exacerbation tracheobronchitis 84-year old patient with known history of COPD, severe with multiple has position for COPD exacerbation maintained on oxygen and maintained on DuoNeb nebulized treatments around the clock, maintain Breo . The patient also has a obstructive sleep apnea with an AHI of 34. He was given a BiPAP unit at the pressure of 12/8. Nevertheless hasn't been able to use it. He is coming in with increased cough and congestion. No wheezing typically of an acute COPD exacerbation. Has significant respiratory secretions. Chest x-ray shows atelectatic changes in lung bases bilaterally. No leukocytosis. Influenza. Has not been done yet. No fever. No chills. No altered mentation. No major swelling in lower extremities above and beyond his baseline. The exact trigger for COPD exacerbation is not clear. He is known to have other comorbidities including RA, hypertension, hypothyroidism, chronic back pain, BPH, previous history of CVA, CAD, dementia and anxiety and acid reflux. He has had previous bronchoscopies. His bronchoscopies yielded gram-negative bacteria in the past including Pseudomonas and this was back in 2017. No hemoptysis. No pleurisy. On 04/23/2019 patient seen in follow-up on selective care unit, still quite bronchospastic and congested, but she is able to bring up purulent sputum. is on doxycycline for antibiotic coverage, IV steroids and nebulized bronchodilators. denies any complaints of chest pain, no hemoptysis, history of x-ray showed mild subsegmental atelectasis at the lung bases, in no acute pulmonary process On 04/25/2019 patient seen in follow-up on general medical floor, he is awake and alert, he is wearing her oxygen intermittently, he is improving, but still sounds very congested, his been nothing by mouth after midnight he is scheduled for bronchoscopy with BAL by Dr. David today, he remains on doxycycline, breathing treatments, and IV steroids. No fever or chills. Objective - Vital Signs Vital signs: Vital Signs Temp 97.9 F 04/25/19 12:51 Pulse 74 04/25/19 15:22 Resp 16 04/25/19 12:51 BP 117/69 04/25/19 12:51 Pulse Ox 92 L 04/25/19 12:51 Intake & Output 04/24/19 04/25/19 04/25/19 18:59 06:59 18:59 Intake Total 540 200 Balance 540 200 Intake: IV 200 Oral 540 Other: # Voids 3 2 2 - Exam GENERAL EXAM: Alert, very pleasant, 84-year-old white male on 2 L of oxygen with a pulse ox of 94%comfortable in no apparent distress. HEAD: Normocephalic/atraumatic. EYES: Normal reaction of pupils, equal size. Conjunctiva pink, sclera white. NOSE: Clear with pink turbinates. THROAT: No erythema or exudates. NECK: No masses, no JVD, no thyroid enlargement, no adenopathy. CHEST: No chest wall deformity. Symmetrical expansion. LUNGS: Equal air entry with diffuse wheezes and rhonchi CVS: Regular rate and rhythm, normal S1 and S2, no gallops, no murmurs, no rubs ABDOMEN: Soft, nontender. No hepatosplenomegaly, normal bowel sounds, no guarding or rigidity. EXTREMITIES: No clubbing, no edema, no cyanosis, 2+ pulses and upper and lower extremities. MUSCULOSKELETAL: Muscle strength and tone normal. SPINE: No scoliosis or deformity SKIN: No rashes CENTRAL NERVOUS SYSTEM: Alert and oriented -3. No focal deficits, tone is normal in all 4 extremities. PSYCHIATRIC: Alert and oriented -3. Appropriate affect. Intact judgment and insight. - Labs CBC & Chem 7: 04/21/19 15:56 04/21/19 16:50 Labs: Abnormal Lab Results - Last 24 Hours (Table) 04/24/19 04/24/19 04/25/19 Range/Units 17:03 20:44 07:16 POC Glucose (mg/dL) 118 H 141 H 133 H (75-99) mg/dL 04/25/19 Range/Units 11:32 POC Glucose (mg/dL) 128 H (75-99) mg/dL Microbiology - Last 24 Hours (Table) 04/23/19 10:20 Gram Stain - Final Sputum Sputum Culture - Final Assessment and Plan Plan: 1 Acute exacerbation of chronic obstructive pulmonary disease. The patient has advanced stage IV or gold stage D COPD with recurrent exacerbations and recurre nt hospitalizations. Has been infected in the past and gram-negative bacteria. He is coming in for another presented for COPD exacerbation. His chest x-ray is free of any acute pulmonary infiltrates. Diagnosed having obstructive sleep apnea, unable to tolerate CPAP therapy 2 Acute on chronic hypoxic respiratory failure secondary to above 3 Previous history of chronic tobacco dependence 4 Hypertension 5 Hyperlipidemia 6 Rheumatoid arthritis 7 Hypothyroidism 8 Gastroesophageal reflux disease 9 Benign prostatic hyperplasia 10 Restless leg syndrome 11 Chronic back pain 12 severe obstructive sleep apnea with an AHI of 34. Unable to tolerate BiPAP. Plan: We'll proceed with bronchoscopy with BAL today, cultures will be sent, anticipate further improvement, continue with current antibiotics for now, continue with current dose of IV steroids and nebulized bronchodilators, possib le discharge home in the next 24 hours I performed a history & physical examination of the patient and discussed their management with my nurse practitioner, Marta Herrera. I reviewed the nurse practitioner's note and agree with the documented findings and plan of care. Lung sounds are positive for diffuse wheezes throughout the lung levi. The findings and the impression was discussed with the patient. I attest to the documentation by the nurse practitioner. Time with Patient: Less than 30
[2019-04-25] MEDS: FERROUS SULFATE 325 MG TAB PO SCH (16:45)
[2019-04-25] MEDS: MULTIVITAMINS, THERA 1 EACH TAB PO SCH (16:45)
[2019-04-25] MEDS: LACTATED RINGERS 1,000 ML IV SCH (16:45)
[2019-04-25] MEDS: SENNOSIDES 8.6 MG TAB PO SCH ×2 (16:45→21:44)
[2019-04-25 16:57] LABS: Glucose,Whole Blood 153 mg/dL (75-99)
[2019-04-25 17:05] LABS: Appearance,BF Cloudy; Color,BF Colorless; Nucleated Cells, Body Fluid 3900 /uL; RBC, Body Fluid 2525 /uL
[2019-04-25 17:06] LABS: Mononuclear WBC,Body Fluid 1 %; Polynuclear WBC,Body Fluid 99 %; Total Cells Counted,Body Fluid 100
[2019-04-25 20:13] LABS: Glucose,Whole Blood 142 mg/dL (75-99)
[2019-04-25] MEDS: FINASTERIDE 5 MG TAB PO SCH (21:44)
[2019-04-25] MEDS: TAMSULOSIN 0.4 MG CAP.ER.24H PO SCH (21:44)
[2019-04-25] MEDS: ATORVASTATIN 20 MG TAB PO SCH (21:44)
[2019-04-25] MEDS: NON FORMULARY DRUG (Morphine Pain Pump 1 DOSE) MISCELLANE SCH (22:42)
[2019-04-26] MEDS: HYDROcodone/APAP 10-325MG 1 EACH TAB PO PRN ×2 (00:08→12:50)
[2019-04-26 00:21] VITALS: RESP 20
[2019-04-26] MEDS: IPRATROPIUM-ALBUTEROL 3 ML NEB INHALATION SCH ×3 (03:04→11:38)
[2019-04-26 05:25] VITALS: TEMP 98.6
[2019-04-26 05:27] VITALS: BP 114/70
[2019-04-26] MEDS: LEVOTHYROXINE 88 MCG TAB PO SCH (06:19)
[2019-04-26 07:00] LABS: Glucose,Whole Blood 190 mg/dL (75-99)
[2019-04-26] MEDS: INSULIN ASPART (NovoLOG) 100 UNIT/ML VIAL SQ SCH ×2 (07:34→12:48)
[2019-04-26] MEDS: HEPARIN SODIUM,PORCINE 5,000 UNIT/ML 1 ML VIAL SQ SCH (07:35)
[2019-04-26] MEDS: MULTIVITAMINS, THERA 1 EACH TAB PO SCH (07:35)
[2019-04-26] MEDS: POTASSIUM CHLORIDE ER 10 MEQ TAB.ER.PRT PO SCH (07:35)
[2019-04-26] MEDS: GABAPENTIN 400 MG CAP PO SCH (07:35)
[2019-04-26] MEDS: guaiFENesin 600 MG TABLET.ER PO SCH (07:35)
[2019-04-26] MEDS: methylPREDNISolone SOD SUCCI 40 MG/ML 1 ML VIAL IV SCH (07:36)
[2019-04-26] MEDS: FERROUS SULFATE 325 MG TAB PO SCH (07:36)
[2019-04-26] MEDS: FUROSEMIDE 20 MG TAB PO SCH (07:36)
[2019-04-26] MEDS: PANTOPRAZOLE 40 MG TABLET PO SCH (07:36)
[2019-04-26] MEDS: SENNOSIDES 8.6 MG TAB PO SCH (07:36)
[2019-04-26] MEDS: METOPROLOL TARTRATE 12.5 MG TAB PO SCH (07:36)
[2019-04-26] MEDS: CARBIDOPA-LEVODOPA 10-100 MG 1 EACH TAB PO SCH (07:37)
[2019-04-26] MEDS: DOXYCYCLINE 100 MG CAP PO SCH (07:37)
[2019-04-26] MEDS: SYMBICORT 160-4.5 MCG INHALER INHALATION SCH (07:42)
--- NOTE | 2019-04-26 10:59 | P.DS ---
Providers Date of admission: 04/21/19 19:43 Expected date of discharge: 04/26/19 Attending physician: Alicia Cartagena DO Consults: 04/21/19 19:43 Consult Physician Routine Consulting Provider: Tee Pepe Consult Reason/Comments: COPD exacerbation Do you want consulting provider notified?: Yes Primary care physician: Noble Prery [facility] Course: Patient is a 84-year-old male with advanced COPD and chronic hypoxic respiratory failure and was discharged 2 weeks ago for acute COPD exacerbation presents to the ED for recurrent symptoms. Patient reported worsening shortness of breath consistent with COPD after finishing a tapering dose of steroids from his discharge 2 weeks ago. Initial troponin was 0.014 with EKG showing normal sinus rhythm with sinus arrhythmia. BNP was 475 chest x-ray showing mild subsegmental atelectasis at the lung bases. Patient was admitted for COPD exacerbation and pulmonology was consulted. He was started on DuoNeb scheduled and as needed for shortness of breath and wheezing. He was started on Solu-Medrol. Patient was given doxycycline for possible acute bronchitis. He was placed on Mucinex. Pulmonology was consulted. Patient was slow to progress and pulmonology recommended bronchoalveolar lavage. This was performed on 04/25/2019 and cultures were sent. Patient was seen and examined. No acute events overnight. Patient reports improvement in his breathing after bronchoscopy. He denies any chest pain or palpitations. No nausea or vomiting. No fever or chills. Currently on 2 L nasal cannula speaking full sentences. General: [non toxic], [no distress speaking full sentences], [appears at stated age] Derm: [warm], [dry] Head: [atraumatic], [normocephalic], [symmetric] Eyes: [EOMI], [no lid lag], [anicteric sclera] Mouth: [no lip lesion], [mucus membranes moist] Cardiovascular: [S1S2 reg], [no murmur], [positive DP pulse bilateral], Lungs: [Coarse breath sounds in the upper lung levi], [no rhonchi, no rales] , [no accessory muscle use] Abdominal: [soft], [ nontender to palpation], [no guarding], [no appreciable organomegaly] Ext: [no gross muscle atrophy], [no edema], [no contractures] Neuro: [no focal neuro deficits] Psych: [Alert], [oriented], [appropriate affect] Acute COPD exacerbation Chronic hypoxic respiratory failure Macrocytosis Chronic conditions: Hypertension, dyslipidemia, Parkinson's disorder Patient has continued to improve since admission and especially after BAL, suspect he is at baseline. He is saturating 90s on baseline 2 L O2. Sputum cultures have been negative so far. BAL cultures have been negative as well. He is continued on doxycycline for acute bronchitis. He is on DuoNeb scheduled and as needed [id number] along with Symbicort, Solu-Medrol and Mucinex. Suspect patient is at baseline. We will wait for pulmonology input. Possible DC today or tomorrow depending on pulmonology recommendations. Pertinent Studies: Chest x-ray Procedures: Bronchoalveolar lavage Patient Condition at Discharge: Stable Plan - Discharge Summary Discharge Rx Participant: No New Discharge Prescriptions: New methylPREDNISolone [Medrol Dose Pack] 4 mg PO DIRECTED #1 pack guaiFENesin [Mucinex] 1,200 mg PO BID #60 tablet.er Doxycycline [Vibramycin] 100 mg PO BID #2 cap Continue rOPINIRole HCL [Requip] 0.5 mg PO TID Levothyroxine Sodium [Synthroid] 175 mcg PO DAILY Donepezil [Aricept] 10 mg PO HS Atorvastatin [Lipitor] 20 mg PO HS Tamsulosin HCl [Flomax] 0.4 mg PO HS Sennosides [Senokot] 8.6 mg PO BID Multivitamin [Multivitamins Adult Gummies] 1 tab PO DAILY guaiFENesin [Mucinex] 1,200 mg PO BID Furosemide [Lasix] 20 mg PO DAILY LORazepam [Ativan] 0.5 mg PO TID PRN PRN Reason: Anxiety Potassium Chloride ER [K-Dur 10] 10 meq PO DAILY Finasteride [Proscar] 5 mg PO HS Pantoprazole [Protonix] 40 mg PO AC-BRKFST #30 tablet. HYDROcodone/APAP 10-325MG [[place] 10-325] 1 tab PO BID PRN PRN Reason: Pain Gabapentin 800 mg PO QID Fluticasone/Vilanterol [Breo Ellipta 200-25 Mcg INH] 1 puff INHALATION RT- DAILY Metoprolol Tartrate [Lopressor] 12.5 mg PO BID Carbidopa-Levodopa 10-100 mg [Sinemet 10-100 mg] 1 tab PO TID Iron 18 mg PO DAILY Morphine Pain Pump 1 dose MISCELLANE CONTINUOUS Ipratropium-Albuterol Nebulize [Duoneb 0.5 mg-3 mg/3 ml Soln] 3 ml INHALATION RT-QID #90 neb Discharge Medication List Atorvastatin [Lipitor] 20 mg PO HS 06/30/16 [History] Donepezil [Aricept] 10 mg PO HS 06/30/16 [History] Levothyroxine Sodium [Synthroid] 175 mcg PO DAILY 06/30/16 [History] Tamsulosin HCl [Flomax] 0.4 mg PO HS 06/30/16 [History] rOPINIRole HCL [Requip] 0.5 mg PO TID 06/30/16 [History] Sennosides [Senokot] 8.6 mg PO BID 12/20/16 [History] Multivitamin [Multivitamins Adult Gummies] 1 tab PO DAILY 04/24/17 [History] guaiFENesin [Mucinex] 1,200 mg PO BID 01/05/18 [History] Furosemide [Lasix] 20 mg PO DAILY 06/12/18 [History] LORazepam [Ativan] 0.5 mg PO TID PRN 06/12/18 [History] Potassium Chloride ER [K-Dur 10] 10 meq PO DAILY 06/12/18 [History] Finasteride [Proscar] 5 mg PO HS 07/31/18 [History] Pantoprazole [Protonix] 40 mg PO [facility] tablet. 08/21/18 [Rx] Fluticasone/Vilanterol [Breo Ellipta 200-25 Mcg INH] 1 puff INHALATION RT-DAILY 09/01/18 [History] Gabapentin 800 mg PO QID 09/01/18 [History] HYDROcodone/APAP 10-325MG [[place] 10-325] 1 tab PO BID PRN 09/01/18 [History] Carbidopa-Levodopa 10-100 mg [Sinemet 10-100 mg] 1 tab PO TID 04/07/19 [History] Iron 18 mg PO DAILY 04/07/19 [History] Metoprolol Tartrate [Lopressor] 12.5 mg PO BID 04/07/19 [History] Morphine Pain Pump 1 dose MISCELLANE CONTINUOUS 04/08/19 [Rx] Doxycycline [Vibramycin] 100 mg PO BID #2 cap 04/26/19 [Rx] Ipratropium-Albuterol Nebulize [Duoneb 0.5 mg-3 mg/3 ml Soln] 3 ml INHALATION RT-QID #90 neb 04/26/19 [Rx] guaiFENesin [Mucinex] 1,200 mg PO BID #60 tablet.er 04/26/19 [Rx] methylPREDNISolone [Medrol Dose Pack] 4 mg PO DIRECTED #1 pack 04/26/19 [Rx] Follow up Appointment(s)/Referral(s): Noble Elkins MD [Primary Care Provider] - 1-2 days Sharmin Diaz MD [STAFF PHYSICIAN] - 1 Week Activity/Diet/Wound Care/Special Instructions: Diet: Heart healthy Follow-up PCP within 3 days of discharge. Follow pulmonology within 1 week of discharge. Take all medications as advised. Come back to the ED for worsening shortness of breath, chest pain, palpitations, dizziness. Discharge Disposition: HOME SELF-CARE
--- NOTE | 2019-04-26 12:00 | P.PN ---
Subjective Progress Note Date: 04/26/19 Principal diagnosis: acute COPD exacerbation tracheobronchitis 84-year old patient with known history of COPD, severe with multiple has position for COPD exacerbation maintained on oxygen and maintained on DuoNeb nebulized treatments around the clock, maintain Breo . The patient also has a obstructive sleep apnea with an AHI of 34. He was given a BiPAP unit at the pressure of 12/8. Nevertheless hasn't been able to use it. He is coming in with increased cough and congestion. No wheezing typically of an acute COPD exacerbation. Has significant respiratory secretions. Chest x-ray shows atelectatic changes in lung bases bilaterally. No leukocytosis. Influenza. Has not been done yet. No fever. No chills. No altered mentation. No major swelling in lower extremities above and beyond his baseline. The exact trigger for COPD exacerbation is not clear. He is known to have other comorbidities including RA, hypertension, hypothyroidism, chronic back pain, BPH, previous history of CVA, CAD, dementia and anxiety and acid reflux. He has had previous bronchoscopies. His bronchoscopies yielded gram-negative bacteria in the past including Pseudomonas and this was back in 2017. No hemoptysis. No pleurisy. On 04/23/2019 patient seen in follow-up on [facility] care unit, still quite bronchospastic and congested, but she is able to bring up purulent sputum. is on doxycycline for antibiotic coverage, IV steroids and nebulized bronchodilators. denies any complaints of chest pain, no hemoptysis, history of x-ray showed mild subsegmental atelectasis at the lung bases, in no acute pulmonary process On 04/25/2019 patient seen in follow-up on general medical floor, he is awake and alert, he is wearing her oxygen intermittently, he is improving, but still sounds very congested, his been nothing by mouth after midnight he is scheduled for bronchoscopy with BAL by Dr. David today, he remains on doxycycline, breathing treatments, and IV steroids. No fever or chills. On 04/26/2019 patient seen in follow-up on general medical floor, he is awake and alert, in no acute distress, , lung sounds are positive for a few scattered rhonchi, overall less congested compared to yesterday's exam, patient did have his BAL yesterday, the cultures are pending, clinically he is breathing easier, Dr. liters of oxygen with a pulse ox of 96%, he is afebrile, he continues on empiric antibiotics form of doxycycline, steroids and breathing treatments, his been tolerating ambulation, he is anticipated for discharge home today. Objective - Vital Signs Vital signs: Vital Signs Temp 98.6 F 04/26/19 04:30 Pulse 59 L 04/26/19 11:38 Resp 20 04/26/19 04:30 BP 114/70 04/26/19 04:30 Pulse Ox 96 04/26/19 07:42 Intake & Output 04/25/19 04/26/19 04/26/19 18:59 06:59 18:59 Intake Total 200 2300 480 Balance 200 2300 480 Intake: IV 200 Oral 2300 480 Other: Voiding Method Urinal # Voids 2 1 - Exam GENERAL EXAM: Alert, very pleasant, 84-year-old white male on 2 L of oxygen with a pulse ox of 94%comfortable in no apparent distress. HEAD: Normocephalic/atraumatic. EYES: Normal reaction of pupils, equal size. Conjunctiva pink, sclera white. NOSE: Clear with pink turbinates. THROAT: No erythema or exudates. NECK: No masses, no JVD, no thyroid enlargement, no adenopathy. CHEST: No chest wall deformity. Symmetrical expansion. LUNGS: Equal air entry with diffuse wheezes and rhonchi CVS: Regular rate and rhythm, normal S1 and S2, no gallops, no murmurs, no rubs ABDOMEN: Soft, nontender. No hepatosplenomegaly, normal bowel sounds, no guarding or rigidity. EXTREMITIES: No clubbing, no edema, no cyanosis, 2+ pulses and upper and lower extremities. MUSCULOSKELETAL: Muscle strength and tone normal. SPINE: No scoliosis or deformity SKIN: No rashes CENTRAL NERVOUS SYSTEM: Alert and oriented -3. No focal deficits, tone is normal in all 4 extremities. PSYCHIATRIC: Alert and oriented -3. Appropriate affect. Intact judgment and insight. - Labs CBC & Chem 7: 04/21/19 15:56 04/21/19 16:50 Labs: Abnormal Lab Results - Last 24 Hours (Table) 04/25/19 04/25/19 04/26/19 Range/Units 16:56 19:59 06:50 POC Glucose (mg/dL) 153 H 142 H 190 H (75-99) mg/dL Microbiology - Last 24 Hours (Table) 04/25/19 13:30 Gram Stain - Preliminary Bronchoalviolar Lavage - Right Bronchial Washings Culture - Preliminary 04/25/19 13:30 Acid Fast Bacilli Culture - Preliminary Bronchoalviolar Lavage - Right 04/25/19 13:30 Fungal Culture - Preliminary Bronchoalviolar Lavage - Right 04/23/19 10:20 Gram Stain - Final Sputum Sputum Culture - Final Assessment and Plan Plan: 1 Acute exacerbation of chronic obstructive pulmonary disease. 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 Has been infected in the past and gram-negative bacteria. He is coming in for another presented for COPD exacerbation. His chest x-ray is free of any acute pulmonary infiltrates. Diagnosed having obstructive sleep apnea, unable to tolerate CPAP therapy 2 Acute on chronic hypoxic respiratory failure secondary to above 3 Previous history of chronic tobacco dependence 4 Hypertension 5 Hyperlipidemia 6 Rheumatoid arthritis 7 Hypothyroidism 8 Gastroesophageal reflux disease 9 Benign prostatic hyperplasia 10 Restless leg syndrome 11 Chronic back pain 12 severe obstructive sleep apnea with an AHI of 34. Unable to tolerate BiPAP. Plan: Patient is doing well, stable for discharge home today, outpatient prednisone taper and antibiotics, follow up with Dr. Pepe in the office in one week, follow-up on his BAL cultures. I performed a history & physical examination of the patient and discussed their management with my nurse practitioner, Marta Herrera. I reviewed the nurse practitioner's note and agree with the documented findings and plan of care. Lung sounds are positive for diffuse wheezes throughout the lung levi. The findings and the impression was discussed with the patient. I attest to the documentation by the nurse practitioner. Time with Patient: Less than 30
[2019-04-26 12:16] VITALS: PULSE 68
[2019-04-26 12:28] LABS: Glucose,Whole Blood 150 mg/dL (75-99)
[2019-04-26] MEDS: LACTATED RINGERS 1,000 ML IV SCH (12:41)
== END 2019-04-26 14:15 | disposition home or self-care (01) | DRG 190 ==
LOC: EC 15:46 → 3SCARD 19:43 → 6NMEDSUR 04-23 21:17
PROVIDERS: ADMIT Internal Medicine; ATTEND Internal Medicine
PROC: 5A09357 Assistance with Respiratory Ventilation, Less than 24 Consecutive Hours, Continuous Positive Airway Pressure (ICD-10-PCS; principal; 2019-04-21)
DX: J44.1 Chronic obstructive pulmonary disease with (acute) exacerbation (principal); J96.21 Acute and chronic respiratory failure with hypoxia; J98.11 Atelectasis; J44.0 Chronic obstructive pulmonary disease with (acute) lower respiratory infection; J39.8 Other specified diseases of upper respiratory tract; F02.80 Dementia in other diseases classified elsewhere, unspecified severity, without behavioral disturbance, psychotic disturbance, mood disturbance, and anxiety; G20 Parkinson's disease; I50.9 Heart failure, unspecified; I95.9 Hypotension, unspecified; J20.9 Acute bronchitis, unspecified; D75.89 Other specified diseases of blood and blood-forming organs; E03.9 Hypothyroidism, unspecified; E78.5 Hyperlipidemia, unspecified; F41.9 Anxiety disorder, unspecified; G25.81 Restless legs syndrome; G47.33 Obstructive sleep apnea (adult) (pediatric); G89.29 Other chronic pain; I11.0 Hypertensive heart disease with heart failure; I25.10 Atherosclerotic heart disease of native coronary artery without angina pectoris; K21.9 Gastro-esophageal reflux disease without esophagitis; M06.9 Rheumatoid arthritis, unspecified; N40.0 Benign prostatic hyperplasia without lower urinary tract symptoms; G43.909 Migraine, unspecified, not intractable, without status migrainosus; K57.90 Diverticulosis of intestine, part unspecified, without perforation or abscess without bleeding; M54.9 Dorsalgia, unspecified; H26.8 Other specified cataract; J32.9 Chronic sinusitis, unspecified; G56.01 Carpal tunnel syndrome, right upper limb; Z79.52 Long term (current) use of systemic steroids; Z79.890 Hormone replacement therapy; Z79.899 Other long term (current) drug therapy; Z87.891 Personal history of nicotine dependence; Z99.81 Dependence on supplemental oxygen; Z86.73 Personal history of transient ischemic attack (TIA), and cerebral infarction without residual deficits; Z88.0 Allergy status to penicillin; Z87.01 Personal history of pneumonia (recurrent); Z86.010 Personal history of colon polyps; Z91.041 Radiographic dye allergy status; Z80.1 Family history of malignant neoplasm of trachea, bronchus and lung; Z82.49 Family history of ischemic heart disease and other diseases of the circulatory system
CPT/HCPCS: 31624; 36415; 71046; 80053; 82607; 82746; 83605; 83735; 83880; 84484; 85025; 85610; 85730; 87070; 87102; 87116; 87205; 87206; 87252; 87496; 87498; 87502; 87529; 87634; 87798; 88108; 88305; 89050; 93005; 94640; 94660; 94667; 94668; 94760; 96361; 96365; 99214; 99291

== ENCOUNTER 2019-05-07 11:53 | Emergency (ER) | payer MEDICARE, BC ==
[2019-05-07 12:02] VITALS: RESP 18; TEMP 97.9
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
[2019-05-07 13:29] LABS: Basophils % (A) 1 %; Eosinophils # (A) 0.1 k/uL (0-0.7); Eosinophils % (A) 2 %; HCT 37.8 % (39.0-53.0); HGB 12.1 gm/dL (13.0-17.5); Lymphocytes # (A) 1.3 k/uL (1.0-4.8); Lymphocytes % (A) 25 %; MCH 32.1 pg (25.0-35.0); MCHC 32.1 g/dL (31.0-37.0); MCV 100.1 fL (80.0-100.0); Mean Platelet Volume 7.3; Monocytes # (A) 0.2 k/uL (0-1.0); Monocytes % (A) 4 %; Neutrophils # (A) 3.5 k/uL (1.3-7.7); Neutrophils % (A) 66 %; Platelet Count 131 k/uL (150-450); RBC 3.77 m/uL (4.30-5.90); RDW 13.4 % (11.5-15.5); WBC 5.3 k/uL (3.8-10.6)
--- NOTE | 2019-05-07 13:33 | CT ---
EXAMINATION TYPE: CT brain wo con DATE OF EXAM: 05/07/2019 HISTORY: Dizziness CT DLP: 1068 mGycm. Automated Exposure Control for Dose Reduction was Utilized. TECHNIQUE: CT scan of the head is performed without contrast. COMPARISON: CT brain September 03, 2018. FINDINGS: There is no acute intracranial hemorrhage or midline shift identified. There is diffuse v entricular and sulcal prominence consistent with diffuse age-related cerebral atrophy. There is low- attenuation in the periventricular white matter consistent with chronic small vessel ischemic change. Near complete opacification posterior right ethmoid sinus redemonstrated favoring mucous retention c yst or polyp The globes are intact and the visualized sinuses otherwise are clear. The calvarium is intact. IMPRESSION: No acute intracranial hemorrhage or midline shift. There is mild diffuse age-related ce rebral atrophy and chronic small vessel ischemic change redemonstrated. No significant change from p rior.
[2019-05-07] MEDS: MECLIZINE 25 MG TAB PO STA ×2 (13:36→13:39)
[2019-05-07 13:39] LABS: INR 0.9 (<1.2); Prothrombin Time 9.2 sec (9.0-12.0)
[2019-05-07] MEDS ORDERED: MECLIZINE 12.5 MG TAB PO STA (13:39)
[2019-05-07] MEDS ORDERED: methylPREDNISolone SOD SUCCI 125 MG/2 ML VIAL IV STA (13:42)
[2019-05-07] MEDS ORDERED: diphenhydrAMINE 50 MG/ML 1 ML VIAL IVP STA (13:42)
[2019-05-07] MEDS ORDERED: FAMOTIDINE 20 MG/2 ML VIAL IV STA (13:42)
[2019-05-07 13:46] LABS: Appearance,Urine Clear (Clear); Bilirubin,Urine Negative (Negative); Blood,Urine Negative (Negative); Color,Urine Yellow; Glucose,Urine (UA) Negative (Negative); Ketones,Urine Negative (Negative); Leukocyte Esterase,Urine Negative (Negative); Nitrite,Urine Negative (Negative); PH, Urine 6.5 (5.0-8.0); Protein,Urine Negative (Negative); Specific Gravity,Urine 1.014 (1.001-1.035); Urobilinogen,Urine <2.0 mg/dL (<2.0)
[2019-05-07 13:51] LABS: Albumin 3.3 g/dL (3.5-5.0); Calcium 8.4 mg/dL (8.4-10.2); Magnesium 2.5 mg/dL (1.6-2.3); Potassium 4.2 mmol/L (3.5-5.1); Total Bilirubin 0.6 mg/dL (0.2-1.3); Total Protein 6.1 g/dL (6.3-8.2)
--- NOTE | 2019-05-07 13:53 | XR ---
EXAMINATION TYPE: XR chest 2V DATE OF EXAM: 05/07/2019 COMPARISON: Chest x-ray April 21, 2019 and older x-rays with chest pain HISTORY: Chest pain, history of COPD TECHNIQUE: Frontal and lateral views of the chest are obtained. FINDINGS: Bibasilar linear opacities remain present. There is no new suspicious focal air space opac ity, pleural effusion, or pneumothorax seen. The cardiac silhouette size is stable mildly enlarged w ith atherosclerotic and ectatic aorta. Multilevel spurring in the spine. IMPRESSION: Mild cardiomegaly with bibasilar linear scarring and/or atelectasis. No new acute infilt rate.
--- NOTE | 2019-05-07 15:24 | CT ---
EXAMINATION TYPE: CT angio head neck DATE OF EXAM: 05/07/2019 HISTORY: dizziness COMPARISON: Carotid ultrasound September 03, 2018 CT DLP: 562.9 mGycm. Automated Exposure Control for Dose Reduction was Utilized. TECHNIQUE: CTA scan of the head and neck are performed with IV Contrast, patient injected with 65 mL of Isovue 370, axial images are obtained, coronal and sagittal reformatted images are reviewed. Thre e-D reconstructed images are created on an independent workstation and reviewed. FINDINGS: Carotid/Vascular Structures: Normal 3 vessel origins from arch. Right common carotid artery shows nor mal origin from right brachiocephalic artery. No significant plaque or stenosis in right common or in ternal carotid artery, right internal carotid artery has a tortuous course. Patent right external car otid artery without significant plaque or stenosis. There is asymmetric mild to moderate mixed plaque left carotid bulb without significant stenosis is internal or external carotid artery appears slight ly tortuous course to left internal carotid artery. There is large caliber right vertebral artery. There is tortuous course distally to the right vertebr al artery. There is small caliber left vertebral artery which becomes occluded or stenotic distally. Basilar artery is patent and is as large or larger than the distal internal carotid arteries. Patent bilateral posterior communicating arteries. No significant focal stenosis or aneurysmal change. Paten t small caliber anterior communicating artery. No significant focal stenosis or aneurysmal change of the anterior circulation.. Other: Small size or atrophic thyroid gland, correlate clinically. Prominent right pulmonary artery o f 3.3 cm diameter axial image 3, CT findings suggesting underlying pulmonary hypertension. Correlate clinically. Moderate spurring and disc space narrowing C5-C6 and C6-C7 levels. Posterior spur disc co mplexes efface the anterior thecal sac C4-C5 through the C6-C7 levels. IMPRESSION: 1. Asymmetric left-sided carotid bulb plaque without significant stenosis in either common or interna l carotid artery. 2. No significant stenosis or aneurysmal change at the level of [place] of [place].
[2019-05-07 17:14] VITALS: BP 98/60; PULSE 62
== END 2019-05-07 17:00 | disposition home or self-care (01) ==
LOC: EC 11:53
DX: R42 Dizziness and giddiness (principal); R11.0 Nausea; R50.9 Fever, unspecified; J44.9 Chronic obstructive pulmonary disease, unspecified; E78.5 Hyperlipidemia, unspecified; I10 Essential (primary) hypertension; M06.9 Rheumatoid arthritis, unspecified; G25.81 Restless legs syndrome; N40.0 Benign prostatic hyperplasia without lower urinary tract symptoms; J96.11 Chronic respiratory failure with hypoxia; G89.29 Other chronic pain; E07.9 Disorder of thyroid, unspecified; F41.9 Anxiety disorder, unspecified; Z87.891 Personal history of nicotine dependence; Z88.0 Allergy status to penicillin; Z91.041 Radiographic dye allergy status; Z79.51 Long term (current) use of inhaled steroids; Z79.890 Hormone replacement therapy; Z79.899 Other long term (current) drug therapy; Z99.81 Dependence on supplemental oxygen; Z97.8 Presence of other specified devices
CPT/HCPCS: 36415; 93005; 80053; 83735; 84484; 85025; 85610; 85730; 81003; 71046; 70496; 70450; 70498; 99285; 96374; 96375 ×2; J1200; J2930; Q9967

== ENCOUNTER 2019-06-17 16:34 | Inpatient (IN) | payer MEDICARE, BC ==
[2019-06-17] MEDS ORDERED: IPRATROPIUM 0.5 MG/2.5 ML NEBU INHALATION STA (16:47)
[2019-06-17] MEDS ORDERED: ALBUTEROL NEBULIZED 2.5 MG/3 ML INHALATION STA (16:47)
[2019-06-17] MEDS ORDERED: methylPREDNISolone SOD SUCCI 125 MG/2 ML VIAL IV STA (16:47)
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
[2019-06-17 17:33] LABS: Basophils % (A) 1 %; Eosinophils # (A) 0.8 k/uL (0-0.7); Eosinophils % (A) 11 %; HGB 12.4 gm/dL (13.0-17.5); Lymphocytes # (A) 1.8 k/uL (1.0-4.8); Lymphocytes % (A) 27 %; MCH 31.8 pg (25.0-35.0); MCHC 32.6 g/dL (31.0-37.0); MCV 97.5 fL (80.0-100.0); Mean Platelet Volume 7.2; Monocytes # (A) 0.3 k/uL (0-1.0); Monocytes % (A) 4 %; Neutrophils # (A) 3.8 k/uL (1.3-7.7); Neutrophils % (A) 55 %; Platelet Count 171 k/uL (150-450); RDW 13.5 % (11.5-15.5); WBC 6.8 k/uL (3.8-10.6)
--- NOTE | 2019-06-17 17:34 | XR ---
EXAMINATION TYPE: XR chest 2V DATE OF EXAM: 06/17/2019 COMPARISON: 05/07/2019 HISTORY: Chest pain TECHNIQUE: FINDINGS: There is some mild infiltrate left lung base. There is linear density right lung base. No h eart failure seen. Heart size is normal. Thoracic aorta is atheromatous. IMPRESSION: There is some mild chronic infiltrate anterior basal segment left lower lobe similar to o ld exam. Mild subsegmental atelectasis right lung base unchanged. No heart failure seen.
[2019-06-17 17:35] LABS: Albumin 3.6 g/dL (3.5-5.0); Calcium 8.6 mg/dL (8.4-10.2); Magnesium 2.2 mg/dL (1.6-2.3); Potassium 4.3 mmol/L (3.5-5.1); Total Bilirubin 0.4 mg/dL (0.2-1.3); Total Protein 6.3 g/dL (6.3-8.2)
[2019-06-17 17:41] LABS: INR 0.9 (<1.2); Partial Thromboplastin Time 27.7 sec (22.0-30.0); Prothrombin Time 9.6 sec (9.0-12.0)
[2019-06-17] MEDS ORDERED: ONDANSETRON 4 MG/2 ML VIAL IVP STA ×2 (17:52→17:53)
[2019-06-17] MEDS ORDERED: HYDROcodone/APAP 10-325MG 1 EACH TAB PO PRN (18:18)
[2019-06-17] MEDS ORDERED: LORazepam 0.5 MG TAB PO PRN (18:18)
[2019-06-17] MEDS: IPRATROPIUM-ALBUTEROL 3 ML NEB INHALATION SCH ×2 (19:07→20:44)
[2019-06-17] MEDS: CARBIDOPA-LEVODOPA 10-100 MG 1 EACH TAB PO SCH (21:03)
[2019-06-17] MEDS: ATORVASTATIN 20 MG TAB PO SCH (21:04)
[2019-06-17] MEDS: guaiFENesin 600 MG TABLET.ER PO SCH (21:05)
[2019-06-17] MEDS: DONEPEZIL 10 MG TAB PO SCH (21:05)
[2019-06-17] MEDS: FINASTERIDE 5 MG TAB PO SCH (21:05)
[2019-06-17] MEDS: METOPROLOL TARTRATE 12.5 MG TAB PO SCH (21:06)
[2019-06-17] MEDS: GABAPENTIN 400 MG CAP PO SCH (22:12)
[2019-06-17] MEDS: SENNOSIDES 8.6 MG TAB PO SCH (23:15)
[2019-06-17] MEDS: TAMSULOSIN 0.4 MG CAP.ER.24H PO SCH (23:15)
[2019-06-17] MEDS: methylPREDNISolone SOD SUCCI 125 MG/2 ML VIAL IV SCH (23:35)
[2019-06-17] MEDS: IPRATROPIUM-ALBUTEROL 3 ML NEB INHALATION PRN (23:47)
[2019-06-18] MEDS: CLOTRIMAZOLE TROCHE 10 MG TROCHE MUCOUS MEM SCH ×6 (00:13→23:39)
[2019-06-18] MEDS: IPRATROPIUM-ALBUTEROL 3 ML NEB INHALATION PRN (03:04)
[2019-06-18] MEDS: LEVOTHYROXINE 100 MCG TAB PO SCH (05:38)
[2019-06-18] MEDS: LEVOTHYROXINE 75 MCG TAB PO SCH (05:38)
[2019-06-18] MEDS: methylPREDNISolone SOD SUCCI 125 MG/2 ML VIAL IV SCH ×2 (05:39→11:35)
[2019-06-18] MEDS: PANTOPRAZOLE 40 MG TABLET PO SCH (07:41)
[2019-06-18] MEDS: CARBIDOPA-LEVODOPA 10-100 MG 1 EACH TAB PO SCH ×3 (07:41→21:18)
[2019-06-18] MEDS: IPRATROPIUM-ALBUTEROL 3 ML NEB INHALATION SCH ×5 (08:27→23:49)
[2019-06-18] MEDS: SENNOSIDES 8.6 MG TAB PO SCH ×2 (08:57→21:19)
[2019-06-18] MEDS: FUROSEMIDE 20 MG TAB PO SCH (08:57)
[2019-06-18] MEDS: LEVOFLOXACIN 500 MG TAB PO SCH (08:58)
[2019-06-18] MEDS: METOPROLOL TARTRATE 12.5 MG TAB PO SCH ×2 (08:58→21:19)
[2019-06-18] MEDS: POTASSIUM CHLORIDE ER 10 MEQ TAB.ER.PRT PO SCH (08:58)
[2019-06-18] MEDS: guaiFENesin 600 MG TABLET.ER PO SCH ×2 (08:58→21:19)
[2019-06-18] MEDS: GABAPENTIN 400 MG CAP PO SCH ×4 (08:58→21:18)
[2019-06-18] MEDS: ENOXAPARIN 40 MG/0.4 ML SYRINGE SQ SCH (12:39)
[2019-06-18] MEDS: MORPHINE MISCELLANE SCH ×2 (12:44→23:28)
[2019-06-18] MEDS: [UNRECOGNIZED DRUG - OTHER] MISCELLANE SCH ×2 (12:44→23:28)
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
[2019-06-18] MEDS: BUDESONIDE 1 MG/2 ML NEBU INHALATION SCH ×2 (16:11→20:16)
[2019-06-18] MEDS: FORMOTEROL FUMARATE 20 MCG/2 ML NEBU INHALATION SCH ×2 (16:11→20:16)
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
[2019-06-18] MEDS: methylPREDNISolone SOD SUCCI 40 MG/ML 1 ML VIAL IV SCH ×2 (18:06→23:39)
[2019-06-18] MEDS: ATORVASTATIN 20 MG TAB PO SCH (21:19)
[2019-06-18] MEDS: DONEPEZIL 10 MG TAB PO SCH (21:19)
[2019-06-18] MEDS: TAMSULOSIN 0.4 MG CAP.ER.24H PO SCH (21:19)
[2019-06-18] MEDS: FINASTERIDE 5 MG TAB PO SCH (21:19)
[2019-06-19] MEDS: IPRATROPIUM-ALBUTEROL 3 ML NEB INHALATION SCH ×5 (04:31→21:23)
[2019-06-19] MEDS: LEVOTHYROXINE 100 MCG TAB PO SCH (05:27)
[2019-06-19] MEDS: LEVOTHYROXINE 75 MCG TAB PO SCH (05:27)
[2019-06-19] MEDS: CLOTRIMAZOLE TROCHE 10 MG TROCHE MUCOUS MEM SCH ×4 (05:27→21:50)
[2019-06-19] MEDS: FORMOTEROL FUMARATE 20 MCG/2 ML NEBU INHALATION SCH ×2 (08:24→21:24)
[2019-06-19] MEDS: BUDESONIDE 1 MG/2 ML NEBU INHALATION SCH ×2 (08:24→21:23)
[2019-06-19] MEDS: METOPROLOL TARTRATE 12.5 MG TAB PO SCH ×2 (08:56→21:50)
[2019-06-19] MEDS: CARBIDOPA-LEVODOPA 10-100 MG 1 EACH TAB PO SCH ×3 (08:56→21:49)
[2019-06-19] MEDS: LEVOFLOXACIN 500 MG TAB PO SCH (08:56)
[2019-06-19] MEDS: POTASSIUM CHLORIDE ER 10 MEQ TAB.ER.PRT PO SCH (08:56)
[2019-06-19] MEDS: FUROSEMIDE 20 MG TAB PO SCH (08:56)
[2019-06-19] MEDS: GABAPENTIN 400 MG CAP PO SCH ×4 (08:56→21:49)
[2019-06-19] MEDS: SENNOSIDES 8.6 MG TAB PO SCH ×2 (08:56→21:50)
[2019-06-19] MEDS: guaiFENesin 600 MG TABLET.ER PO SCH ×2 (08:57→21:50)
[2019-06-19] MEDS: methylPREDNISolone SOD SUCCI 40 MG/ML 1 ML VIAL IV SCH ×2 (08:57→17:37)
[2019-06-19] MEDS: PANTOPRAZOLE 40 MG TABLET PO SCH (08:57)
[2019-06-19] MEDS: ENOXAPARIN 40 MG/0.4 ML SYRINGE SQ SCH (08:57)
--- NOTE | 2019-06-19 11:56 | P.PN ---
Subjective Progress Note Date: 06/19/19 Principal diagnosis: COPD exacerbation 84-year-old male patient very well-known to us because of his advanced COPD and his chronic hypoxic respiratory failure. He comes in for the same. His last admission was in April 2019.. Some cough and yellowish to brownish sputum. No chest pain. No pleurisy. No worsening lower extremity edema. Chest x-ray shows some chronic infiltrates of the lung bases bilaterally similar to the previous chest x-ray. White cell count was at 6.8. Influenza screen was negative. Admitted for an acute COPD exacerbation. The patient on DuoNeb nebulized treatments around the clock and he was also given IV Solu-Medrol 40 mg every 8 hours. He is on Levaquin 5 mg by mouth daily. Clinically doing better. Note that during his last admission. Bronchoscopy and the lavage came back negative for any microbial growth. There was Justine and penicillium species probably colonizes both of them. The grandson the culture was essentially negative. The patient is seen today 06/19/2019 in follow-up on the regular medical floor. He is currntly sitting up at the bedside. Awake, alert, no acute distress. Currently with a nonproductive cough, some chest congestion, wheezing. Sputum culture reveals no growth. Blood culture reveals no growth. He is maintained on DuoNeb inhalations, Pulmicort and Perforomist inhalations, IV Solu-Medrol. E mpiric antibiotics in the form of Levaquin. Objective - Vital Signs Vital signs: Vital Signs Temp 98.1 F 06/19/19 04:10 Pulse 100 06/19/19 11:46 Resp 16 06/19/19 04:10 BP 134/69 06/19/19 04:10 Pulse Ox 95 06/19/19 08:24 Intake & Output 06/18/19 06/19/19 06/19/19 18:59 06:59 18:59 Intake Total 720 Balance 720 Intake: Oral 720 Other: Voiding Method Toilet Toilet # Voids 2 4 # Bowel Movements 1 - Exam GENERAL EXAM: Alert, active, comfortable in no apparent distress. HEAD: Normocephalic. EYES: Normal reaction of pupils, equal size. NOSE: Clear with pink turbinates. THROAT: No erythema or exudates. NECK: No masses, no JVD. CHEST: No chest wall deformity. LUNGS: Equal air entry with few scattered rhonchi CVS: S1 and S2 normal with no audible murmur, regular rhythm. ABDOMEN: No hepatosplenomegaly, normal bowel sounds, no guarding or rigidity. SPINE: No scoliosis or deformity SKIN: No rashes CENTRAL NERVOUS SYSTEM: No focal deficits, tone is normal in all 4 extremities. EXTREMITIES: There is no peripheral edema. No clubbing, no cyanosis. Peripheral pulses are intact. - Labs CBC & Chem 7: 06/17/19 17:05 06/17/19 17:05 Labs: Microbiology - Last 24 Hours (Table) 06/18/19 16:30 Gram Stain - Preliminary Sputum Sputum Culture - Preliminary 06/17/19 17:05 Blood Culture - Preliminary Blood No Growth after 24 hours Assessment and Plan Assessment: 1 Acute exacerbation of chronic obstructive pulmonary disease. 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 Has been infected in the past and gram-negative bacteria. During the most recent admission, the patient a bronchoscopy and the cultures came back negative for any bacterial growth. There was Justine. The chest x-ray showing infiltrates in the lung bases which are essentially chronic and unchanged compared to his previous x-ray. He is already feeling better with a combination of bronchodilators and steroids 2 Acute on chronic hypoxic respiratory failure secondary to above 3 Previous history of chronic tobacco dependence 4 Hypertension 5 Hyperlipidemia 6 Rheumatoid arthritis 7 Hypothyroidism 8 Gastroesophageal reflux disease 9 Benign prostatic hyperplasia 10 Restless leg syndrome 11 Chronic back pain 12 severe obstructive sleep apnea with an AHI of 34. Unable to tolerate BiPAP. Plan The patient was seen and evauated by Dr. Pepe. He is improved but not quite back to his baseline. We will continue the current treatment plan. Probable discharge in the a.m. I, the cosigning physician, performed a history & physical examination of the patient. Lungs sounds with few scattered rhonchi. Maintaining good O2 satu rations in the 90s on 2 L/m per nasal cannula.. I discussed the assessment and plan of care with my nurse practitioner, Hailey Oh. I attest to the above note as dictated by her
[2019-06-19] MEDS: DONEPEZIL 10 MG TAB PO SCH (21:50)
[2019-06-19] MEDS: TAMSULOSIN 0.4 MG CAP.ER.24H PO SCH (21:50)
[2019-06-19] MEDS: ATORVASTATIN 20 MG TAB PO SCH (21:50)
[2019-06-19] MEDS: FINASTERIDE 5 MG TAB PO SCH (21:50)
[2019-06-19] MEDS: MORPHINE MISCELLANE SCH (21:51)
[2019-06-19] MEDS: [UNRECOGNIZED DRUG - OTHER] MISCELLANE SCH (21:51)
--- NOTE | 2019-06-19 23:56 | P.PN ---
Progress Note - Text Progress Note Date: 06/19/19 Chief Complaint: Shortness of breath, cough History of presenting complaint: This is a pleasant 84-year-old patient of Dr. 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 Chronic stable medical conditions include GERD, hypertension, BPH, rheumatoid arthritis, on home oxygen 2 L, colonic diverticulosis, restless leg syndrome, mild cognitive impairment, intrathecal pain pump for which she follows Dr. Hilliard. Patient presents with 3 days of worsening shortness of breath, cough. Congested. Slight sputum. No obvious fever and chills. Appetite had gone down. Wheezing. Tired rundown. Getting admitted for the same. Admitted with COPD exacerbation and viral pneumonitis. Today-feeling better less cough. Less sputum production. Appetite fair. Breathing improved. Review of systems: Was done for constitutional, cardiovascular, GI, pulmonary. relevant finding as above Active Medications Hydrocodone Bitart/Acetaminophen (Milf[place] 10) 1 each PO DAILY PRN PRN Reason: Pain Albuterol/Ipratropium (Duoneb 0.5 Mg-3 Mg/3 Ml Soln) 3 ml INHALATION RT-Q4H PRN PRN Reason: Shortness Of Breath Or Wheezing Last Admin: 06/18/19 03:04 Dose: 3 ml Documented by: Albuterol/Ipratropium (Duoneb 0.5 Mg-3 Mg/3 Ml Soln) 3 ml INHALATION RT-Q4H [facility] Last Admin: 06/19/19 21:23 Dose: 3 ml Documented by: Atorvastatin Calcium (Lipitor) 20 mg PO [facility] Last Admin: 06/19/19 21:50 Dose: 20 mg Documented by: Budesonide (Pulmicort) 1 mg INHALATION RT-BID [facility] Last Admin: 06/19/19 21:23 Dose: 1 mg Documented by: Carbidopa/Levodopa (Sinemet 10-100) 1 each PO TID@0800,1400,2000 [facility] Last Admin: 06/19/19 21:49 Dose: 1 each Documented by: Clotrimazole (Mycelex [place]) 10 mg MUCOUS MEM 5XD [facility] Last Admin: 06/19/19 21:50 Dose: 10 mg Documented by: Donepezil HCl (Aricept) 10 mg PO [facility] Last Admin: 06/19/19 21:50 Dose: 10 mg Documented by: Enoxaparin Sodium (Lovenox) 40 mg SQ DAILY [facility] Last Admin: 06/19/19 08:57 Dose: 40 mg Documented by: Finasteride (Proscar) 5 mg PO HS [facility] Last Admin: 06/19/19 21:50 Dose: 5 mg Documented by: Formoterol Fumarate (Perforomist) 20 mcg INHALATION RT-BID [facility] Last Admin: 06/19/19 21:24 Dose: 20 mcg Documented by: Furosemide (Lasix) 20 mg PO DAILY [facility] Last Admin: 06/19/19 08:56 Dose: 20 mg Documented by: Gabapentin (Neurontin) 800 mg PO QID [facility] Last Admin: 06/19/19 21:49 Dose: 800 mg Documented by: Guaifenesin (Mucinex) 1,200 mg PO BID [facility] Last Admin: 06/19/19 21:50 Dose: 1,200 mg Documented by: Levofloxacin (Levaquin) 500 mg PO DAILY [facility] Stop: 06/25/19 09:01 Last Admin: 06/19/19 08:56 Dose: 500 mg Documented by: Levothyroxine Sodium (Synthroid) 100 mcg PO DAILY@0630 [facility] Last Admin: 06/19/19 05:27 Dose: 100 mcg Documented by: Levothyroxine Sodium (Synthroid) 75 mcg PO DAILY@0630 [facility] Last Admin: 06/19/19 05:27 Dose: 75 mcg Documented by: Lorazepam (Ativan) 0.5 mg PO TID PRN PRN Reason: Anxiety Last Admin: 06/18/19 03:10 Dose: 0.5 mg Documented by: Methylprednisolone Sodium Succinate (Solu-Medrol) 40 mg IV Q8HR [facility] Last Admin: 06/19/19 17:37 Dose: 40 mg Documented by: Metoprolol Tartrate (Lopressor) 12.5 mg PO BID [facility] Last Admin: 06/19/19 21:50 Dose: 12.5 mg Documented by: Non-Formulary Medication (Morphine+Unknown Medication Pain Pump) 1 dose MISCELLANE CONTINUOUS [facility] Last Admin: 06/19/19 21:51 Dose: Not Given Documented by: Pantoprazole Sodium (Protonix) 40 mg PO AC-BRKFST [facility] Last Admin: 06/19/19 08:57 Dose: 40 mg Documented by: Potassium Chloride (K-Dur 10) 10 meq PO DAILY [facility] Last Admin: 06/19/19 08:56 Dose: 10 meq Documented by: Ropinirole HCl (Requip) 0.5 mg PO TID [facility] Last Admin: 06/19/19 21:50 Dose: 0.5 mg Documented by: Senna (Senokot) 17.2 mg PO BID [facility] Last Admin: 06/19/19 21:50 Dose: 17.2 mg Documented by: Tamsulosin HCl (Flomax) 0.8 mg PO HS [facility] Last Admin: 06/19/19 21:50 Dose: 0.8 mg Documented by: Physical examination: VITAL SIGNS: 98.1, 103, 16, blood pressure 134/69, 95% on 2 L GENERAL: Sitting up, more comfortable today EYES: Pupils equal. Conjunctiva normal. HEENT: [External appearance of nose and ears normal, oral cavity dry NECK: JVD not raised; masses not palpable. HEART: First and second heart sounds are normal; no edema. LUNGS: Respiratory rate increased, decreased breath sound improved air entry ABDOMEN: Soft, nontender, liver spleen not palpable, no masses palpable. LYMPHATICS: No lymph nodes palpable in the axilla and neck. PSYCH: Answering questions, forgetful. Patient did not remember my name, has known me very well for very long time. He also forgot that I was body maker machine setter versus a lung doctor Investigations, reviewed in the clinical context : White count 6.8, hemoglobin 12.4, potassium 4.3, creatinine 1.0. Influenza type A and type B both negative. EKG tracing personally reviewed by me-old sinus rhythm Chest x-ray film personally reviewed by me-possible infiltrates Assessment: -Acute COPD exacerbation in an [id number] -Possible viral pneumonitis. Doubt bacterial pneumonia. Patient is afebrile, normal white count has a fair appetite. Some x-ray changes may be chronic.- Improving -GERD -Essential hypertension -Hyperlipidemia -BPH -Chronic rheumatoid arthritis -Hypothyroid next Chronic hypoxic respiratory failure from underlying COPD -Chronic colonic diverticulosis -Mild cognitive impairment from underlying late onset Alzheimer's dementia -Restless leg syndrome -Chronic kidney dysfunction at her baseline uses a cane and a walker -Chronic pain syndrome for which patient is on intrathecal pain pump being followed by Dr. Hilliard Plan: Overall much improved. Continue with bronchodilators and steroids. We'll switch to oral steroids in the morning. Discussed with the patient. Hopefully discharge home tomorrow.
[2019-06-20] MEDS: IPRATROPIUM-ALBUTEROL 3 ML NEB INHALATION SCH ×4 (00:19→12:54)
[2019-06-20] MEDS: CLOTRIMAZOLE TROCHE 10 MG TROCHE MUCOUS MEM SCH ×3 (00:22→13:23)
[2019-06-20 00:45] VITALS: TEMP 98.4
[2019-06-20] MEDS: IPRATROPIUM-ALBUTEROL 3 ML NEB INHALATION PRN (04:31)
[2019-06-20] MEDS: LEVOTHYROXINE 75 MCG TAB PO SCH (05:51)
[2019-06-20] MEDS: LEVOTHYROXINE 100 MCG TAB PO SCH (05:51)
[2019-06-20 06:54] VITALS: BP 113/58; RESP 18
[2019-06-20] MEDS: PANTOPRAZOLE 40 MG TABLET PO SCH (07:35)
[2019-06-20] MEDS: CARBIDOPA-LEVODOPA 10-100 MG 1 EACH TAB PO SCH ×2 (07:35→13:23)
[2019-06-20] MEDS: SENNOSIDES 8.6 MG TAB PO SCH (07:35)
[2019-06-20] MEDS: FUROSEMIDE 20 MG TAB PO SCH (07:35)
[2019-06-20] MEDS: GABAPENTIN 400 MG CAP PO SCH ×2 (07:35→13:23)
[2019-06-20] MEDS: METOPROLOL TARTRATE 12.5 MG TAB PO SCH (07:36)
[2019-06-20] MEDS: LEVOFLOXACIN 500 MG TAB PO SCH (07:36)
[2019-06-20] MEDS: POTASSIUM CHLORIDE ER 10 MEQ TAB.ER.PRT PO SCH (07:36)
[2019-06-20] MEDS: ENOXAPARIN 40 MG/0.4 ML SYRINGE SQ SCH (07:36)
[2019-06-20] MEDS: guaiFENesin 600 MG TABLET.ER PO SCH (07:36)
[2019-06-20] MEDS ORDERED: predniSONE 20 MG TAB PO SCH (09:00)
[2019-06-20] MEDS: BUDESONIDE 1 MG/2 ML NEBU INHALATION SCH (09:03)
[2019-06-20] MEDS: FORMOTEROL FUMARATE 20 MCG/2 ML NEBU INHALATION SCH (09:03)
[2019-06-20 13:05] VITALS: PULSE 100
--- NOTE | 2019-06-20 23:37 | P.DS ---
Providers Date of admission: 06/17/19 18:09 Expected date of discharge: 06/20/19 Attending physician: Ralph Barajas Consults: 06/17/19 18:09 Consult Physician Routine Consulting Provider: Sharmin Diaz Consult Reason/Comments: COPD Do you want consulting provider notified?: Yes Primary care physician: Noble Elkins [facility] Course: Chief Complaint: Shortness of breath, cough History of presenting complaint: This is a pleasant 84-year-old patient of Dr. elkins from [place] and follows with Dr. David as his cook specialty. Chronic stable medical conditions include GERD, hypertension, BPH, rheumatoid arthritis, on home oxygen 2 L, colonic diverticulosis, restless leg syndrome, mild cognitive impairment, intrathecal pain pump for which she follows Dr. Hilliard. Patient presents with 3 days of worsening shortness of breath, cough. Congested. Slight sputum. No obvious fever and chills. Appetite had gone down. Wheezing. Tired rundown. Getting admitted for the same. Admitted with COPD exacerbation and viral pneumonitis. Treated with steroids, bronchodilators. Today-much improved. Breathing improved. Tolerating diet. Consultation: Dr. Pepe from pulmonary Physical examination: VITAL SIGNS: 98.4, 91, 18, 113/58, 94% on 2 L GENERAL: Comfortable EYES: Pupils equal. Conjunctiva normal. HEENT: [External appearance of nose and ears normal, oral cavity dry NECK: JVD not raised; masses not palpable. HEART: First and second heart sounds are normal; no edema. LUNGS: Respiratory rate increased, decreased breath sound ABDOMEN: Soft, nontender, liver spleen not palpable, no masses palpable. Investigations, reviewed in the clinical context : White count 6.8, hemoglobin 12.4, potassium 4.3, creatinine 1.0. Influenza type A and type B both negative. EKG tracing personally reviewed by me-old sinus rhythm Chest x-ray film personally reviewed by me-possible infiltrates Assessment: -Acute COPD exacerbation in an ex-smoker- -Possible viral pneumonitis. -GERD -Essential hypertension -Hyperlipidemia -BPH -Chronic rheumatoid arthritis -Hypothyroid next Chronic hypoxic respiratory failure from underlying COPD -Chronic colonic diverticulosis -Mild cognitive impairment from underlying late onset Alzheimer's dementia -Restless leg syndrome -Chronic kidney dysfunction at her baseline uses a cane and a walker -Chronic pain syndrome for which patient is on intrathecal pain pump being followed by Dr. Hilliard Disposition: Home Patient Condition at Discharge: Stable Plan - Discharge Summary Discharge Rx Participant: No New Discharge Prescriptions: New Levofloxacin [Levaquin] 500 mg PO DAILY #3 tab predniSONE 10 mg PO DAILY #30 tab Continue rOPINIRole HCL [Requip] 0.5 mg PO TID Levothyroxine Sodium [Synthroid] 175 mcg PO DAILY Donepezil [Aricept] 10 mg PO HS Atorvastatin [Lipitor] 20 mg PO HS Tamsulosin HCl [Flomax] 0.4 - 0.8 mg PO HS Sennosides [Senokot] 17.2 mg PO BID Multivitamin [Multivitamins Adult Gummies] 1 tab PO DAILY guaiFENesin [Mucinex] 1,200 mg PO BID Furosemide [Lasix] 20 mg PO DAILY LORazepam [Ativan] 0.5 mg PO TID PRN PRN Reason: Anxiety Potassium Chloride ER [K-Dur 10] 10 meq PO DAILY Finasteride [Proscar] 5 mg PO HS Pantoprazole [Protonix] 40 mg PO AC-BRKFST #30 tablet. HYDROcodone/APAP 10-325MG [[place] 10-325] 1 tab PO DAILY PRN PRN Reason: Pain Gabapentin 800 mg PO QID Fluticasone/Vilanterol [Breo Ellipta 200-25 Mcg INH] 1 puff INHALATION RT- DAILY Metoprolol Tartrate [Lopressor] 12.5 mg PO BID Carbidopa-Levodopa 10-100 mg [Sinemet 10-100 mg] 1 tab PO TID@0800,1400,2000 Iron 18 mg PO DAILY Ipratropium-Albuterol Nebulize [Duoneb 0.5 mg-3 mg/3 ml Soln] 3 ml INHALATION RT-QID #90 neb Clotrimazole [place] [Mycelex [place]] 10 mg MUCOUS MEM 5XD Morphine+Unknown Medication Pain Pump 1 dose INTRATHECA CONTINUOUS Meclizine [Antivert] 12.5 mg PO TID PRN PRN Reason: DIZZINESS Discharge Medication List Atorvastatin [Lipitor] 20 mg PO HS 06/30/16 [History] Donepezil [Aricept] 10 mg PO HS 06/30/16 [History] Levothyroxine Sodium [Synthroid] 175 mcg PO DAILY 06/30/16 [History] Tamsulosin HCl [Flomax] 0.4 - 0.8 mg PO HS 06/30/16 [History] rOPINIRole HCL [Requip] 0.5 mg PO TID 06/30/16 [History] Sennosides [Senokot] 17.2 mg PO BID 12/20/16 [History] Multivitamin [Multivitamins Adult Gummies] 1 tab PO DAILY 04/24/17 [History] guaiFENesin [Mucinex] 1,200 mg PO BID 01/05/18 [History] Furosemide [Lasix] 20 mg PO DAILY 06/12/18 [History] LORazepam [Ativan] 0.5 mg PO TID PRN 06/12/18 [History] Potassium Chloride ER [K-Dur 10] 10 meq PO DAILY 06/12/18 [History] Finasteride [Proscar] 5 mg PO HS 07/31/18 [History] Pantoprazole [Protonix] 40 mg PO AC-BRKFST #30 tablet. 08/21/18 [Rx] Fluticasone/Vilanterol [Breo Ellipta 200-25 Mcg INH] 1 puff INHALATION RT-DAILY 09/01/18 [History] Gabapentin 800 mg PO QID 09/01/18 [History] HYDROcodone/APAP 10-325MG [[place] 10-325] 1 tab PO DAILY PRN 09/01/18 [History] Carbidopa-Levodopa 10-100 mg [Sinemet 10-100 mg] 1 tab PO TID@0800,1400,2000 04/07/19 [History] Iron 18 mg PO DAILY 04/07/19 [History] Metoprolol Tartrate [Lopressor] 12.5 mg PO BID 04/07/19 [History] Ipratropium-Albuterol Nebulize [Duoneb 0.5 mg-3 mg/3 ml Soln] 3 ml INHALATION RT-QID #90 neb 04/26/19 [Rx] Clotrimazole [place] [Mycelex [place]] 10 mg MUCOUS MEM 5XD 05/07/19 [History] Meclizine [Antivert] 12.5 mg PO TID PRN 06/17/19 [History] Morphine+Unknown Medication Pain Pump 1 dose INTRATHECA CONTINUOUS 06/17/19 [History] Levofloxacin [Levaquin] 500 mg PO DAILY #3 tab 06/20/19 [Rx] predniSONE 10 mg PO DAILY #30 tab 06/20/19 [Rx] Follow up Appointment(s)/Referral(s): Client [facility] [Other] - 1 Week [facility], [NON-STAFF] - Noble Elkins MD [Primary Care Provider] - 1-2 days (office wont answer) Patient Instructions/Handouts: COPD (Chronic Obstructive Pulmonary Disease) (DC) Discharge Disposition: HOME WITH HOME HEALTH SERVICES
== END 2019-06-20 14:51 | disposition home health service (06) | DRG 190 ==
LOC: EC 16:34 → 6NMEDSUR 18:09
PROVIDERS: ADMIT Hospitalist; ATTEND Hospitalist
DX: J44.1 Chronic obstructive pulmonary disease with (acute) exacerbation (principal); J12.9 Viral pneumonia, unspecified; J96.21 Acute and chronic respiratory failure with hypoxia; J44.0 Chronic obstructive pulmonary disease with (acute) lower respiratory infection; E03.9 Hypothyroidism, unspecified; E78.5 Hyperlipidemia, unspecified; F02.80 Dementia in other diseases classified elsewhere, unspecified severity, without behavioral disturbance, psychotic disturbance, mood disturbance, and anxiety; F41.9 Anxiety disorder, unspecified; G25.81 Restless legs syndrome; G30.1 Alzheimer's disease with late onset; G47.33 Obstructive sleep apnea (adult) (pediatric); G89.4 Chronic pain syndrome; H54.7 Unspecified visual loss; I10 Essential (primary) hypertension; M06.9 Rheumatoid arthritis, unspecified; N40.0 Benign prostatic hyperplasia without lower urinary tract symptoms; K57.30 Diverticulosis of large intestine without perforation or abscess without bleeding; G43.909 Migraine, unspecified, not intractable, without status migrainosus; Z96.1 Presence of intraocular lens; K21.9 Gastro-esophageal reflux disease without esophagitis; Z87.891 Personal history of nicotine dependence; Z79.890 Hormone replacement therapy; Z79.899 Other long term (current) drug therapy; Z82.49 Family history of ischemic heart disease and other diseases of the circulatory system; Z99.81 Dependence on supplemental oxygen; Z80.1 Family history of malignant neoplasm of trachea, bronchus and lung; Z99.89 Dependence on other enabling machines and devices; Z83.79 Family history of other diseases of the digestive system; Z98.890 Other specified postprocedural states; Z98.41 Cataract extraction status, right eye; Z88.0 Allergy status to penicillin; Z91.041 Radiographic dye allergy status
CPT/HCPCS: 36415; 71046; 80053; 83605; 83735; 83880; 84484; 85025; 85610; 85730; 87040; 87070; 87205; 87502; 93005; 94640; 94760; 96374; 96375; 99285

== ENCOUNTER 2020-01-25 11:01 | Inpatient (IN) | payer MEDICARE, BC ==
[2020-01-25] MEDS ORDERED: IPRATROPIUM-ALBUTEROL 3 ML NEB INHALATION STA (11:10)
[2020-01-25] MEDS ORDERED: methylPREDNISolone SOD SUCCI 125 MG/2 ML VIAL IV STA ×2 (11:10→12:13)
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
[2020-01-25 12:02] LABS: Basophils # (A) 0.1 k/uL (0-0.2); Basophils % (A) 1 %; Eosinophils # (A) 0.4 k/uL (0-0.7); Eosinophils % (A) 6 %; HCT 40.7 % (39.0-53.0); HGB 13.3 gm/dL (13.0-17.5); Lymphocytes % (A) 30 %; MCH 33.6 pg (25.0-35.0); MCHC 32.7 g/dL (31.0-37.0); MCV 102.6 fL (80.0-100.0); Macrocytosis Slight; Mean Platelet Volume 7.2; Monocytes # (A) 0.3 k/uL (0-1.0); Monocytes % (A) 5 %; Neutrophils # (A) 3.7 k/uL (1.3-7.7); Neutrophils % (A) 56 %; Platelet Count 121 k/uL (150-450); RBC 3.96 m/uL (4.30-5.90); WBC 6.6 k/uL (3.8-10.6)
[2020-01-25 12:09] LABS: Albumin 3.6 g/dL (3.5-5.0); Calcium 8.7 mg/dL (8.4-10.2); Potassium 3.8 mmol/L (3.5-5.1); Total Bilirubin 0.3 mg/dL (0.2-1.3); Total Protein 6.1 g/dL (6.3-8.2)
--- NOTE | 2020-01-25 12:10 | XR ---
EXAMINATION TYPE: XR chest 2V DATE OF EXAM: 01/25/2020 COMPARISON: 06/17/2019 INDICATION: Difficulty breathing TECHNIQUE: Frontal and lateral views of the chest are obtained. FINDINGS: The heart size is normal. The pulmonary vasculature is normal. Plate atelectasis at the bilateral lung bases. There is hyperinflation flattened diaphragms. Correlat e for COPD.. IMPRESSION: 1. Mild bibasilar plate atelectasis
[2020-01-25 12:19] LABS: INR 0.9 (<1.2); Partial Thromboplastin Time 27.3 sec (22.0-30.0); Prothrombin Time 9.5 sec (9.0-12.0)
[2020-01-25] MEDS ORDERED: NALOXONE 0.4 MG/ML 1 ML VIAL IV PRN (13:07)
[2020-01-25] MEDS ORDERED: ACETAMINOPHEN TAB 325 MG TAB PO PRN (13:07)
[2020-01-25] MEDS ORDERED: LORazepam 2 MG/ML INJ IV PRN (13:07)
[2020-01-25] MEDS ORDERED: HYDROmorphone 0.5 MG/0.5 ML SYRINGE IVP PRN (13:07)
[2020-01-25] MEDS ORDERED: ONDANSETRON 4 MG/2 ML VIAL IVP PRN (13:07)
[2020-01-25] MEDS: SODIUM CHLORIDE 0.9% 1,000 ML IV SCH (14:32)
[2020-01-25] MEDS: IPRATROPIUM-ALBUTEROL 3 ML NEB INHALATION PRN ×2 (15:59→18:57)
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
[2020-01-25] MEDS: PANTOPRAZOLE 40 MG TABLET PO SCH (16:41)
[2020-01-25] MEDS: LEVOFLOXACIN 750 MG TAB PO SCH (16:41)
[2020-01-25] MEDS: ENOXAPARIN 40 MG/0.4 ML SYRINGE SQ SCH (16:41)
[2020-01-25] MEDS ORDERED: methylPREDNISolone SOD SUCCI 125 MG/2 ML VIAL IV SCH (18:00)
[2020-01-25] MEDS ORDERED: HYDROcodone/APAP 10-325MG 1 EACH TAB PO PRN (18:01)
[2020-01-25] MEDS ORDERED: LORazepam 0.5 MG TAB PO PRN (18:01)
[2020-01-25] MEDS: METOPROLOL TARTRATE 12.5 MG TAB PO SCH (18:45)
[2020-01-25] MEDS: [UNRECOGNIZED DRUG - OTHER] MISCELLANE SCH (18:46)
[2020-01-25] MEDS: MORPHINE MISCELLANE SCH (18:46)
[2020-01-25] MEDS: SYMBICORT 160-4.5 MCG INHALER INHALATION SCH (18:57)
[2020-01-25 21:38] LABS: Glucose,Whole Blood 196 mg/dL (75-99)
[2020-01-25] MEDS: FINASTERIDE 5 MG TAB PO SCH (21:48)
[2020-01-25] MEDS: GABAPENTIN 400 MG CAP PO SCH (21:48)
[2020-01-25] MEDS: DONEPEZIL 10 MG TAB PO SCH (21:48)
[2020-01-25] MEDS: ATORVASTATIN 20 MG TAB PO SCH (21:48)
[2020-01-25] MEDS: INSULIN ASPART (NovoLOG) 100 UNIT/ML VIAL SQ SCH (21:49)
[2020-01-25] MEDS: CARBIDOPA-LEVODOPA 10-100 MG 1 EACH TAB PO SCH (21:49)
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
[2020-01-25] MEDS: methylPREDNISolone SOD SUCCI 40 MG/ML 1 ML VIAL IV SCH (23:28)
[2020-01-26] MEDS: IPRATROPIUM-ALBUTEROL 3 ML NEB INHALATION PRN ×2 (02:17→21:22)
[2020-01-26] MEDS: SODIUM CHLORIDE 0.9% 1,000 ML IV SCH (03:20)
[2020-01-26] MEDS: LEVOTHYROXINE 75 MCG TAB PO SCH (06:03)
[2020-01-26] MEDS: LEVOTHYROXINE 100 MCG TAB PO SCH (06:03)
[2020-01-26 07:20] LABS: Glucose,Whole Blood 147 mg/dL (75-99)
[2020-01-26] MEDS: IPRATROPIUM-ALBUTEROL 3 ML NEB INHALATION SCH ×5 (07:35→19:45)
[2020-01-26] MEDS: SYMBICORT 160-4.5 MCG INHALER INHALATION SCH ×3 (07:44→21:25)
[2020-01-26] MEDS: INSULIN ASPART (NovoLOG) 100 UNIT/ML VIAL SQ SCH ×7 (08:18→21:04)
[2020-01-26] MEDS: POTASSIUM CHLORIDE ER 10 MEQ TAB.ER.PRT PO SCH (08:20)
[2020-01-26] MEDS: METOPROLOL TARTRATE 12.5 MG TAB PO SCH ×2 (08:20→17:06)
[2020-01-26] MEDS: GABAPENTIN 400 MG CAP PO SCH ×3 (08:20→21:52)
[2020-01-26] MEDS: methylPREDNISolone SOD SUCCI 40 MG/ML 1 ML VIAL IV SCH ×2 (08:20→15:32)
[2020-01-26] MEDS: PANTOPRAZOLE 40 MG TABLET PO SCH (08:20)
[2020-01-26] MEDS: ENOXAPARIN 40 MG/0.4 ML SYRINGE SQ SCH (08:21)
[2020-01-26] MEDS: CARBIDOPA-LEVODOPA 10-100 MG 1 EACH TAB PO SCH ×3 (08:21→21:03)
[2020-01-26] MEDS: LEVOFLOXACIN 750 MG TAB PO SCH (08:21)
[2020-01-26] MEDS: FUROSEMIDE 20 MG TAB PO SCH (08:21)
[2020-01-26] MEDS: MULTIVITAMINS, THERA 1 EACH TAB PO SCH (08:22)
[2020-01-26] MEDS: FERROUS SULFATE 325 MG TAB PO SCH (11:34)
[2020-01-26 11:58] LABS: Glucose,Whole Blood 132 mg/dL (75-99)
[2020-01-26] MEDS ORDERED: FERROUS SULFATE 325 MG TAB PO SCH (12:00)
--- NOTE | 2020-01-26 12:37 | P.PN ---
Subjective Progress Note Date: 01/26/20 Principal diagnosis: Acute exacerbation of chronic obstructive pulmonary disease This is an 84-year-old white male with history of COPD, O2 dependent, but not prednisone dependent, last admission to the hospital back in March, and his COPD symptoms have been fairly under control until 3 days ago. Patient presented to the ER with 3 days history of cough, wheezing, shortness of breath, cough is nonproductive, denies any fever no chills, no hemoptysis, chest feels tight. Denies any nausea vomiting abdominal pain melena or hematemesis. Denies any aches and pains. Patient has been noticing worsening dyspnea on exertion, hence he decided to come to the ER. Chest x-ray showed no evidence of infiltrate. It did show evidence of bibasilar atelectasis. Patient was admit deborah, and this consult was initiated. Patient is known to have history of multiple comorbidities including hypertension, coronary artery disease, hypothyroidism, rheumatoid arthritis, and had previous bronchoscopies revealing gram-negative infections including Pseudomonas back in 2016. The patient is seen today 01/26/2020 in follow-up on the regular medical floor. He is currently sitting up at the bedside. Awake and alert in no acute distress. Breathing quite a bit better today compared to yesterday. He is maintaining O2 saturation in the mid 90s on 2 L/m per nasal cannula. He is afebrile. Blood glucose 132. He is continued on DuoNeb inhalations, Symbicort, IV Solu-Medrol. Antibiotics in the form of Levaquin. Objective - Vital Signs Vital signs: Vital Signs Temp 98.5 F 01/26/20 07:25 Pulse 104 H 01/26/20 11:14 Resp 16 01/26/20 07:25 BP 143/77 01/26/20 07:25 Pulse Ox 97 01/26/20 07:35 Intake & Output 01/25/20 01/26/20 01/26/20 18:59 06:59 18:59 Weight 99.79 kg Other: Voiding Method Toilet # Voids 1 - Exam GENERAL EXAM: Revealed an 84-year-old male patient, pleasant, in no distress, on 2 L/m per nasal cannula with O2 saturation 96%. HEAD: Atraumatic, normocephalic. EYES: Normal reaction of pupils, equal size. Conjunctiva pink, sclera white. NOSE: Clear with pink turbinates. THROAT: No erythema or exudates. NECK: No masses, no JVD, no thyroid enlargement, no adenopathy. CHEST: No chest wall deformity. Symmetrical expansion. LUNGS: End expiratory wheeze, diminished. CVS: Regular rate and rhythm, normal S1 and S2, no gallops, no murmurs, no rubs ABDOMEN: Obese, Soft, nontender, obese. No hepatosplenomegaly, normal bowel sounds, no guarding or rigidity. Pain pump is palpable in the left lower quadrant abdominal wall. EXTREMITIES: No clubbing, trace of bipedal edema, no cyanosis, 2+ pulses and upper and lower extremities. MUSCULOSKELETAL: Muscle strength and tone normal. SPINE: No scoliosis or deformity SKIN: No rashes CENTRAL NERVOUS SYSTEM: Alert and oriented 3 no gross focal neurologic deficits. PSYCHIATRIC: Normal mood, affect and normal mental status examination. - Labs CBC & Chem 7: 01/25/20 11:45 01/25/20 11:45 Labs: Abnormal Lab Results - Last 24 Hours (Table) 01/25/20 01/26/20 01/26/20 Range/Units 21:37 07:16 11:56 POC Glucose (mg/dL) 196 H 147 H 132 H (75-99) mg/dL Assessment and Plan Assessment: 1 Acute exacerbation of chronic obstructive pulmonary disease, Gold stage IV COPD 2 Acute on chronic hypoxemic respiratory failure maintained on oxygen mostly at night in the outpatient setting 3 History of chronic tobacco dependence 4 History of coronary disease 5 Hypertension 6 Rheumatoid arthritis 7 Hypothyroidism 8 GERD without esophagitis 9 Chronic back pain with pain pump in place 10 Obstructive sleep apnea with an AHI of 34, intolerant to BiPAP Plan: The patient was seen and evaluated by Dr. Diaz He is improved today compared to yesterday Continue current treatment plan Probable discharge in a.m. We'll continue to follow I, the cosigning physician, performed a history & physical examination of the patient. Lungs sounds with bilateral end expiratory wheeze, diminished. Maintaining good O2 saturations in the 90s on 2 L/m per nasal cannula. I discussed the assessment and plan of care with my nurse practitioner, Hailey Oh. I attest to the above note as dictated by her.
[2020-01-26] MEDS ORDERED: guaiFENesin 600 MG TABLET.ER PO PRN (12:54)
[2020-01-26] MEDS: [UNRECOGNIZED DRUG - OTHER] MISCELLANE SCH (17:06)
[2020-01-26] MEDS: MORPHINE MISCELLANE SCH (17:06)
[2020-01-26 17:38] LABS: Glucose,Whole Blood 141 mg/dL (75-99)
[2020-01-26 20:27] LABS: Glucose,Whole Blood 184 mg/dL (75-99)
[2020-01-26] MEDS: PSYLLIUM HUSK 100% 6 GM PACKET PO SCH (21:01)
[2020-01-26] MEDS: DONEPEZIL 10 MG TAB PO SCH (21:03)
[2020-01-26] MEDS: ATORVASTATIN 20 MG TAB PO SCH (21:03)
[2020-01-26] MEDS: FINASTERIDE 5 MG TAB PO SCH (21:04)
--- NOTE | 2020-01-26 22:15 | P.PN ---
Progress Note - Text Progress Note Date: 01/26/20 Chief Complaint: Short of breath History of presenting complaint: This is a pleasant 84-year-old patient of Dr. 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 Chronic stable medical conditions include GERD, hypertension, BPH, rheumatoid arthritis, on home oxygen 2 L-at night, colonic diverticulosis, restless leg syndrome, mild cognitive impairment, intrathecal pain pump - follows Dr. Hilliard. Presents with 2 days of increasing shortness of breath wheezing. Chest tightness. No fever no chills. Some cough. No sputum. No fever no chills. Given bronchodilators steroids in the ER with it to which he felt better. Appetite okay. Admitted with COPD exacerbation. Put on bronchodilators steroids. Today-feeling better. Breathing improving. Less wheezing. Oral intake good. Did sit up in a chair. Review of systems: Was done for constitutional, cardiovascular, GI, pulmonary. relevant finding as above Active Medications Acetaminophen (Acetaminophen Tab 325 Mg Tab) 650 mg PO Q6HR PRN PRN Reason: Mild Pain or Fever > 100.5 Hydrocodone Bitart/Acetaminophen (Hydrocodone/Apap 10-325mg 1 Each Tab) 1 each PO DAILY PRN PRN Reason: Moderate to Severe Pain Last Admin: 01/26/20 21:04 Dose: 1 each Documented by: Albuterol/Ipratropium (Ipratropium-Albuterol 3 Ml Neb) 3 ml INHALATION Q4HR PRN PRN Reason: Wheezing Last Admin: 01/26/20 21:22 Dose: 3 ml Documented by: Albuterol/Ipratropium (Ipratropium-Albuterol 3 Ml Neb) 3 ml INHALATION RT-QID [facility] Last Admin: 01/26/20 19:45 Dose: Not Given Documented by: Atorvastatin Calcium (Atorvastatin 20 Mg Tab) 20 mg PO HS [facility] Last Admin: 01/26/20 21:03 Dose: 20 mg Documented by: Budesonide/Formoterol Fumarate (Symbicort 160-4.5 Mcg Inhaler) 2 puff INHALATION RT-BID [facility] Last Admin: 01/26/20 21:25 Dose: 2 puff Documented by: Carbidopa/Levodopa (Carbidopa-Levodopa 10-100 Mg 1 Each Tab) 1 each PO TID@0800,1400,2000 [facility] Last Admin: 01/26/20 21:03 Dose: 1 each Documented by: Donepezil HCl (Donepezil 10 Mg Tab) 10 mg PO HS [facility] Last Admin: 01/26/20 21:03 Dose: 10 mg Documented by: Enoxaparin Sodium (Enoxaparin 40 Mg/0.4 Ml Syringe) 40 mg SQ DAILY [facility] Last Admin: 01/26/20 08:21 Dose: 40 mg Documented by: Ferrous Sulfate (Ferrous Sulfate 325 Mg Tab) 325 mg PO DAILY@1200 [facility] Last Admin: 01/26/20 11:34 Dose: 325 mg Documented by: Finasteride (Finasteride 5 Mg Tab) 5 mg PO HS [facility] Last Admin: 01/26/20 21:04 Dose: 5 mg Documented by: Furosemide (Furosemide 20 Mg Tab) 20 mg PO DAILY [facility] Last Admin: 01/26/20 08:21 Dose: 20 mg Documented by: Gabapentin (Gabapentin 400 Mg Cap) 400 mg PO TID [facility] Last Admin: 01/26/20 21:52 Dose: 400 mg Documented by: Guaifenesin (Guaifenesin 600 Mg Tablet.Er) 600 mg PO Q12HR PRN PRN Reason: Congestion Last Admin: 01/26/20 21:51 Dose: 600 mg Documented by: Sodium Chloride (Saline 0.9%) 1,000 mls @ 20 mls/hr IV .Q24H [facility] Last Admin: 01/26/20 03:20 Dose: Not Given Documented by: Insulin Aspart (Insulin Aspart (Novolog) 100 Unit/Ml Vial) 0 unit SQ ACHS [facility]; Protocol Last Admin: 01/26/20 21:04 Dose: 4 unit Documented by: Insulin Aspart (Insulin Aspart (Novolog) 100 Unit/Ml Vial) 0 unit SQ AC-TID [facility]; Protocol Last Admin: 01/26/20 17:39 Dose: Not Given Documented by: Levofloxacin (Levofloxacin 750 Mg Tab) 750 mg PO DAILY [facility] Last Admin: 01/26/20 08:21 Dose: 750 mg Documented by: Levothyroxine Sodium (Levothyroxine 100 Mcg Tab) 100 mcg PO DAILY@0630 [facility] Last Admin: 01/26/20 06:03 Dose: 100 mcg Documented by: Levothyroxine Sodium (Levothyroxine 75 Mcg Tab) 75 mcg PO DAILY@0630 [facility] Last Admin: 01/26/20 06:03 Dose: 75 mcg Documented by: Lorazepam (Lorazepam 0.5 Mg Tab) 0.5 mg PO TID PRN PRN Reason: Anxiety Methylprednisolone Sodium Succinate (Methylprednisolone Sod Succi 40 Mg/Ml 1 Ml Vial) 40 mg IV Q8HR [facility] Last Admin: 01/26/20 15:32 Dose: 40 mg Documented by: Metoprolol Tartrate (Metoprolol Tartrate 12.5 Mg Tab) 12.5 mg PO BID-W/MEALS [facility] Last Admin: 01/26/20 17:06 Dose: 12.5 mg Documented by: Multivitamins (Multivitamins, Thera 1 Each Tab) 1 each PO DAILY@1200 [facility] Last Admin: 01/26/20 08:22 Dose: 1 each Documented by: Naloxone HCl (Naloxone 0.4 Mg/Ml 1 Ml Vial) 0.2 mg IV Q2M PRN PRN Reason: Opioid Reversal Non-Formulary Medication (Morphine+Unknown Medication Pain Pump) 1 dose MISCELLANE CONTINUOUS [facility] Last Admin: 01/26/20 17:06 Dose: Not Given Documented by: Ondansetron HCl (Ondansetron 4 Mg/2 Ml Vial) 4 mg IVP Q8HR PRN PRN Reason: Nausea And Vomiting Pantoprazole Sodium (Pantoprazole 40 Mg Tablet) 40 mg PO AC-BRKFST [facility] Last Admin: 01/26/20 08:20 Dose: 40 mg Documented by: Potassium Chloride (Potassium Chloride Er 10 Meq Tab.Er.Prt) 10 meq PO DAILY [facility] Last Admin: 01/26/20 08:20 Dose: 10 meq Documented by: Psyllium Hydrophilic Mucilloid (Psyllium Husk 100% 6 Gm Packet) 6 gm PO BID [facility] Last Admin: 01/26/20 21:01 Dose: 6 gm Documented by: Ropinirole HCl (Ropinirole Hcl 0.25 Mg Tab) 0.5 mg PO TID [facility] Last Admin: 01/26/20 21:51 Dose: 0.5 mg Documented by: Physical examination: VITAL SIGNS: 98, 91, 16, 149 with 87, 94% room air GENERAL: Sitting up, comfortable EYES: Pupils equal. Conjunctiva normal. NECK: JVD not raised; masses not palpable. HEART: First and second heart sounds are normal; no edema. LUNGS: Respiratory rate increased, improving at entry ABDOMEN: Soft, nontender, liver spleen not palpable, no masses palpable. LYMPHATICS: No lymph nodes palpable in the axilla and neck. PSYCH: AO 3 Investigations, reviewed in the clinical context : White count 6.6 hemoglobin 12.3 potassium 3.8 creatinine 1.08 Chest x-ray film personally reviewed by me-hyperinflation, possible infiltrate on left lung lower zone EKG tracing personally reviewed by me-sinus rhythm Assessment: -Acute COPD exacerbation in an [id number] -GERD -Essential hypertension -Hyperlipidemia -BPH -Chronic rheumatoid arthritis -Hypothyroid next -Chronic hypoxic respiratory failure on nocturnal oxygen from underlying COPD -Chronic colonic diverticulosis -Mild cognitive impairment from underlying late onset Alzheimer's dementia -Restless leg syndrome -Chronic gait dysfunction at her baseline uses a cane and a walker -Chronic pain syndrome for which patient is on intrathecal pain pump being followed by Dr. Hilliard Plan: Discussed with patient. Improving. Scaled back steroids. Discussed with Dr. Hummel. Discharged tomorrow
[2020-01-27] MEDS: IPRATROPIUM-ALBUTEROL 3 ML NEB INHALATION PRN ×2 (00:25→04:01)
[2020-01-27] MEDS: SODIUM CHLORIDE 0.9% 1,000 ML IV SCH (03:26)
[2020-01-27] MEDS: LEVOTHYROXINE 75 MCG TAB PO SCH (07:02)
[2020-01-27] MEDS: LEVOTHYROXINE 100 MCG TAB PO SCH (07:02)
[2020-01-27 07:17] LABS: Glucose,Whole Blood 113 mg/dL (75-99)
[2020-01-27] MEDS: INSULIN ASPART (NovoLOG) 100 UNIT/ML VIAL SQ SCH ×4 (07:40→11:51)
[2020-01-27] MEDS: ENOXAPARIN 40 MG/0.4 ML SYRINGE SQ SCH (07:45)
[2020-01-27] MEDS: METOPROLOL TARTRATE 12.5 MG TAB PO SCH (07:46)
[2020-01-27] MEDS: POTASSIUM CHLORIDE ER 10 MEQ TAB.ER.PRT PO SCH (07:46)
[2020-01-27] MEDS: GABAPENTIN 400 MG CAP PO SCH (07:46)
[2020-01-27] MEDS: MULTIVITAMINS, THERA 1 EACH TAB PO SCH (07:46)
[2020-01-27] MEDS: FUROSEMIDE 20 MG TAB PO SCH (07:46)
[2020-01-27] MEDS: PANTOPRAZOLE 40 MG TABLET PO SCH (07:47)
[2020-01-27] MEDS: CARBIDOPA-LEVODOPA 10-100 MG 1 EACH TAB PO SCH (07:47)
[2020-01-27] MEDS: LEVOFLOXACIN 750 MG TAB PO SCH (07:47)
[2020-01-27] MEDS: FERROUS SULFATE 325 MG TAB PO SCH (07:47)
[2020-01-27] MEDS: PSYLLIUM HUSK 100% 6 GM PACKET PO SCH ×2 (07:47→07:51)
[2020-01-27 07:58] VITALS: BP 126/85; RESP 16; TEMP 97.8
[2020-01-27] MEDS: IPRATROPIUM-ALBUTEROL 3 ML NEB INHALATION SCH ×2 (08:24→12:00)
[2020-01-27] MEDS: SYMBICORT 160-4.5 MCG INHALER INHALATION SCH (08:24)
[2020-01-27] MEDS ORDERED: predniSONE 20 MG TAB PO SCH (09:00)
--- NOTE | 2020-01-27 11:02 | P.PN ---
Subjective Progress Note Date: 01/27/20 Principal diagnosis: Acute exacerbation of chronic obstructive pulmonary disease This is an 84-year-old white male with history of COPD, O2 dependent, but not prednisone dependent, last admission to the hospital back in March, and his COPD symptoms have been fairly under control until 3 days ago. Patient presented to the ER with 3 days history of cough, wheezing, shortness of breath, cough is nonproductive, denies any fever no chills, no hemoptysis, chest feels tight. Denies any nausea vomiting abdominal pain melena or hematemesis. Denies any aches and pains. Patient has been noticing worsening dyspnea on exertion, hence he decided to come to the ER. Chest x-ray showed no evidence of infiltrate. It did show evidence of bibasilar atelectasis. Patient was admit deborah, and this consult was initiated. Patient is known to have history of multiple comorbidities including hypertension, coronary artery disease, hypothyroidism, rheumatoid arthritis, and had previous bronchoscopies revealing gram-negative infections including Pseudomonas back in 2016. The patient is seen today 01/26/2020 in follow-up on the regular medical floor. He is currently sitting up at the bedside. Awake and alert in no acute distress. Breathing quite a bit better today compared to yesterday. He is maintaining O2 saturation in the mid 90s on 2 L/m per nasal cannula. He is afebrile. Blood glucose 132. He is continued on DuoNeb inhalations, Symbicort, IV Solu-Medrol. Antibiotics in the form of Levaquin. The patient is seen today 01/27/2020 in follow-up on the regular medical floor. He is currently up ambulating in his room. Awake and alert in no acute distress. Breathing easier today compared to yesterday. Feeling back to his baseline. He is maintaining O2 saturations in the mid 90s on room air. Afebrile. Hemodynamically stable. He remains on DuoNeb inhalations, Symbicort, prednisone. Empiric antibiotics in the form of Levaquin. Objective - Vital Signs Vital signs: Vital Signs Temp 97.8 F 01/27/20 07:00 Pulse 84 01/27/20 08:38 Resp 16 01/27/20 07:00 BP 126/85 01/27/20 07:00 Pulse Ox 95 10/18/20 07:00 Intake & Output 01/26/20 01/27/20 01/27/20 18:59 06:59 18:59 Intake Total 740 236 Balance 740 236 Intake: Oral 740 236 Other: Voiding Method Toilet # Voids 1 1 1 - Exam GENERAL EXAM: Revealed an 84-year-old male patient, pleasant, in no distress, on room air with O2 saturation 95%. HEAD: Atraumatic, normocephalic. EYES: Normal reaction of pupils, equal size. Conjunctiva pink, sclera white. NOSE: Clear with pink turbinates. THROAT: No erythema or exudates. NECK: No masses, no JVD, no thyroid enlargement, no adenopathy. CHEST: No chest wall deformity. Symmetrical expansion. LUNGS: Clear but diminished. CVS: Regular rate and rhythm, normal S1 and S2, no gallops, no murmurs, no rubs ABDOMEN: Obese, Soft, nontender, obese. No hepatosplenomegaly, normal bowel sounds, no guarding or rigidity. Pain pump is palpable in the left lower quadrant abdominal wall. EXTREMITIES: No clubbing, trace of bipedal edema, no cyanosis, 2+ pulses and upper and lower extremities. MUSCULOSKELETAL: Muscle strength and tone normal. SPINE: No scoliosis or deformity SKIN: No rashes CENTRAL NERVOUS SYSTEM: Alert and oriented 3 no gross focal neurologic deficits. PSYCHIATRIC: Normal mood, affect and normal mental status examination. - Labs CBC & Chem 7: 01/25/20 11:45 01/25/20 11:45 Labs: Abnormal Lab Results - Last 24 Hours (Table) 01/26/20 01/26/20 01/26/20 Range/Units 11:56 17:36 20:25 POC Glucose (mg/dL) 132 H 141 H 184 H (75-99) mg/dL 01/27/20 Range/Units 07:16 POC Glucose (mg/dL) 113 H (75-99) mg/dL Assessment and Plan Assessment: 1 Acute exacerbation of chronic obstructive pulmonary disease, Gold stage IV COPD 2 Acute on chronic hypoxemic respiratory failure maintained on oxygen mostly at night in the outpatient setting 3 History of chronic tobacco dependence 4 History of coronary disease 5 Hypertension 6 Rheumatoid arthritis 7 Hypothyroidism 8 GERD without esophagitis 9 Chronic back pain with pain pump in place 10 Obstructive sleep apnea with an AHI of 34, intolerant to BiPAP Plan: The patient was seen and evaluated by Dr. Diaz Cleared for discharge from the pulmonary standpoint Complete a prednisone taper Complete a course of antibiotics Follow-up in the office in 1-2 weeks' time I, the cosigning physician, performed a history & physical examination of the patient. Lungs sounds with clear, diminished. Maintaining good O2 saturations in the 90s on room air. I discussed the assessment and plan of care with my nurse practitioner, Hailey Oh. I attest to the above note as dictated by her.
[2020-01-27 11:45] LABS: Glucose,Whole Blood 108 mg/dL (75-99)
[2020-01-27 12:02] VITALS: PULSE 82
--- NOTE | 2020-01-27 19:55 | P.DS ---
Providers Date of admission: 01/25/20 13:12 Expected date of discharge: 01/27/20 Attending physician: Ralph Barajas Consults: 01/25/20 13:07 Consult Physician Stat Consulting Provider: Sharmin Diaz Reason/Comments: COPD exacerbation Do you want consulting provider notified?: Yes Primary care physician: Noble Elkins [facility] Course: Chief Complaint: Short of breath History of presenting complaint: This is a pleasant 84-year-old patient of Dr. elkins from [place] and follows with Dr. David as his registered nurse post partum. Chronic stable medical conditions include GERD, hypertension, BPH, rheumatoid arthritis, on home oxygen 2 L-at night, colonic diverticulosis, restless leg syndrome, mild cognitive impairment, intrathecal pain pump - follows Dr. Hilliard. Presents with 2 days of increasing shortness of breath wheezing. Chest tightness. No fever no chills. Some cough. No sputum. No fever no chills. Given bronchodilators steroids in the ER with it to which he felt better. Appetite okay. Admitted with COPD exacerbation. Put on bronchodilators steroids. Today-responded well. Doing much better. Breathing stable. Tolerating a diet. Cleared by pulmonary. Consultation: Dr. Diaz from pulmonary Physical examination: VITAL SIGNS: 97.8, 71, 16, 126/85, 95% GENERAL: Sitting up, comfortable EYES: Pupils equal. Conjunctiva normal. NECK: JVD not raised; masses not palpable. HEART: First and second heart sounds are normal; no edema. LUNGS: Respiratory rate increased, fair air entry ABDOMEN: Soft, nontender, liver spleen not palpable, no masses palpable. LYMPHATICS: No lymph nodes palpable in axilla and neck. PSYCH: AO 3 Investigations, reviewed in the clinical context : White count 6.6 hemoglobin 12.3 potassium 3.8 creatinine 1.08 Chest x-ray film personally reviewed by me-hyperinflation, possible infiltrate on left lung lower zone EKG tracing personally reviewed by me-sinus rhythm Assessment: -Acute COPD exacerbation in an [id number] -GERD -Essential hypertension -Hyperlipidemia -BPH -Chronic rheumatoid arthritis -Hypothyroid next -Chronic hypoxic respiratory failure on nocturnal oxygen from underlying COPD -Chronic colonic diverticulosis -Mild cognitive impairment from underlying late onset Alzheimer's dementia -Restless leg syndrome -Chronic gait dysfunction at her baseline uses a cane and a walker -Chronic pain syndrome for which patient is on intrathecal pain pump being followed by Dr. Hilliard Disposition: Home Patient Condition at Discharge: Stable Plan - Discharge Summary New Discharge Prescriptions: New Ipratropium-Albuterol Nebulize [Duoneb 0.5 mg-3 mg/3 ml Soln] 3 ml INHALATION RT-QID ml predniSONE 0 mg PO DIRECTED #10 tab Budesonide-Formot 160-4.5 Mcg [Symbicort 160-4.5 Mcg Inhaler] 2 puff INHALATION RT-BID #1 puff Continue rOPINIRole HCL [Requip] 0.5 mg PO TID Levothyroxine Sodium [Synthroid] 175 mcg PO DAILY Donepezil [Aricept] 10 mg PO HS Atorvastatin [Lipitor] 20 mg PO HS Tamsulosin HCl [Flomax] 0.4 - 0.8 mg PO HS Multivitamin [Multivitamins Adult Gummies] 1 tab PO DAILY Furosemide [Lasix] 20 mg PO DAILY LORazepam [Ativan] 0.5 mg PO TID PRN PRN Reason: Anxiety Potassium Chloride ER [K-Dur 10] 10 meq PO DAILY Finasteride [Proscar] 5 mg PO HS HYDROcodone/APAP 10-325MG [[place] 10-325] 1 tab PO DAILY PRN PRN Reason: Pain Metoprolol Tartrate [Lopressor] 12.5 mg PO BID-W/MEALS Carbidopa-Levodopa 10-100 mg [Sinemet 10-100 mg] 1 tab PO TID@0800,1400,2000 Iron 18 mg PO DAILY Morphine+Unknown Medication Pain Pump 1 dose INTRATHECA CONTINUOUS Gabapentin [Neurontin] 400 mg PO TID Discharge Medication List Atorvastatin [Lipitor] 20 mg PO HS 06/30/16 [History] Donepezil [Aricept] 10 mg PO HS 06/30/16 [History] Levothyroxine Sodium [Synthroid] 175 mcg PO DAILY 06/30/16 [History] Tamsulosin HCl [Flomax] 0.4 - 0.8 mg PO HS 06/30/16 [History] rOPINIRole HCL [Requip] 0.5 mg PO TID 06/30/16 [History] Multivitamin [Multivitamins Adult Gummies] 1 tab PO DAILY 04/24/17 [History] Furosemide [Lasix] 20 mg PO DAILY 06/12/18 [History] LORazepam [Ativan] 0.5 mg PO TID PRN 06/12/18 [History] Potassium Chloride ER [K-Dur 10] 10 meq PO DAILY 06/12/18 [History] Finasteride [Proscar] 5 mg PO HS 07/31/18 [History] HYDROcodone/APAP 10-325MG [[place] 10-325] 1 tab PO DAILY PRN 09/01/18 [History] Carbidopa-Levodopa 10-100 mg [Sinemet 10-100 mg] 1 tab PO TID@0800,1400,2000 04/07/19 [History] Iron 18 mg PO DAILY 04/07/19 [History] Metoprolol Tartrate [Lopressor] 12.5 mg PO BID-W/MEALS 04/07/19 [History] Morphine+Unknown Medication Pain Pump 1 dose INTRATHECA CONTINUOUS 06/17/19 [History] Gabapentin [Neurontin] 400 mg PO TID 01/25/20 [History] Budesonide-Formot 160-4.5 Mcg [Symbicort 160-4.5 Mcg Inhaler] 2 puff INHALATION RT-BID #1 puff 01/27/20 [Rx] Ipratropium-Albuterol Nebulize [Duoneb 0.5 mg-3 mg/3 ml Soln] 3 ml INHALATION RT-QID ml 01/27/20 [Rx] predniSONE 0 mg PO DIRECTED #10 tab 01/27/20 [Rx] Follow up Appointment(s)/Referral(s): Noble Elkins MD [Primary Care Provider] - 1-2 days Patient Instructions/Handouts: Bronchospasm (ED) Discharge Disposition: HOME SELF-CARE
== END 2020-01-27 13:20 | disposition home or self-care (01) | DRG 190 ==
LOC: EC 11:01 → 4SSUR 13:12
PROVIDERS: ADMIT Hospitalist; ATTEND Hospitalist
DX: J44.1 Chronic obstructive pulmonary disease with (acute) exacerbation (principal); J96.21 Acute and chronic respiratory failure with hypoxia; J96.11 Chronic respiratory failure with hypoxia; J98.11 Atelectasis; M06.9 Rheumatoid arthritis, unspecified; K21.9 Gastro-esophageal reflux disease without esophagitis; K57.90 Diverticulosis of intestine, part unspecified, without perforation or abscess without bleeding; E78.5 Hyperlipidemia, unspecified; I10 Essential (primary) hypertension; N40.0 Benign prostatic hyperplasia without lower urinary tract symptoms; E03.9 Hypothyroidism, unspecified; M54.9 Dorsalgia, unspecified; G89.4 Chronic pain syndrome; G47.33 Obstructive sleep apnea (adult) (pediatric); I25.10 Atherosclerotic heart disease of native coronary artery without angina pectoris; H54.7 Unspecified visual loss; I45.10 Unspecified right bundle-branch block; G30.1 Alzheimer's disease with late onset; F02.80 Dementia in other diseases classified elsewhere, unspecified severity, without behavioral disturbance, psychotic disturbance, mood disturbance, and anxiety; K57.30 Diverticulosis of large intestine without perforation or abscess without bleeding; G43.909 Migraine, unspecified, not intractable, without status migrainosus; G25.81 Restless legs syndrome; F41.9 Anxiety disorder, unspecified; Z96.1 Presence of intraocular lens; Z99.81 Dependence on supplemental oxygen; Z98.41 Cataract extraction status, right eye; Z97.8 Presence of other specified devices; Z88.0 Allergy status to penicillin; Z91.041 Radiographic dye allergy status; Z79.899 Other long term (current) drug therapy; Z87.01 Personal history of pneumonia (recurrent); Z86.010 Personal history of colon polyps; Z82.49 Family history of ischemic heart disease and other diseases of the circulatory system; Z80.1 Family history of malignant neoplasm of trachea, bronchus and lung; Z79.890 Hormone replacement therapy; Z98.890 Other specified postprocedural states; Z83.79 Family history of other diseases of the digestive system; Z87.891 Personal history of nicotine dependence
CPT/HCPCS: 36415; 71046; 80053; 84484; 85025; 85610; 85730; 93005; 94640; 94760; 96374; 96376; 99285

== ENCOUNTER 2020-04-10 18:46 | Emergency (ER) | payer MEDICARE, BC ==
[2020-04-10 18:53] VITALS: RESP 18; TEMP 98
[2020-04-10] MEDS ORDERED: IPRATROPIUM 0.5 MG/2.5 ML NEBU INHALATION STA (19:10)
[2020-04-10] MEDS ORDERED: ALBUTEROL NEBULIZED 2.5 MG/3 ML INHALATION STA (19:10)
[2020-04-10] MEDS ORDERED: DEXAMETHASONE SOD PHOSPHATE 10 MG/ML 1 ML VIAL IV STA (19:10)
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
[2020-04-10 19:37] LABS: Basophils # (A) 0.1 k/uL (0-0.2); Basophils % (A) 1 %; Eosinophils # (A) 0.5 k/uL (0-0.7); Eosinophils % (A) 8 %; HCT 38.5 % (39.0-53.0); HGB 13.4 gm/dL (13.0-17.5); Lymphocytes # (A) 2.3 k/uL (1.0-4.8); Lymphocytes % (A) 34 %; MCH 34.4 pg (25.0-35.0); MCHC 34.8 g/dL (31.0-37.0); Monocytes # (A) 0.2 k/uL (0-1.0); Monocytes % (A) 3 %; Neutrophils # (A) 3.6 k/uL (1.3-7.7); Neutrophils % (A) 52 %; Platelet Count 113 k/uL (150-450); RBC 3.89 m/uL (4.30-5.90); RDW 13.2 % (11.5-15.5); WBC 6.8 k/uL (3.8-10.6)
[2020-04-10 19:46] LABS: Albumin 3.9 g/dL (3.5-5.0); Calcium 8.7 mg/dL (8.4-10.2); Magnesium 2.1 mg/dL (1.6-2.3); Potassium 3.8 mmol/L (3.5-5.1); Total Bilirubin 0.6 mg/dL (0.2-1.3); Total Protein 6.4 g/dL (6.3-8.2)
[2020-04-10 19:47] LABS: Partial Thromboplastin Time 27.4 sec (22.0-30.0)
--- NOTE | 2020-04-10 19:52 | XR ---
EXAMINATION TYPE: XR chest 2V DATE OF EXAM: 04/10/2020 COMPARISON: 01/25/2020 HISTORY: Short of breath TECHNIQUE: FINDINGS: There is poor inspiration. There is some mild coarse interstitial density at the lung bases . There is mild subsegmental atelectasis. There is no heart failure. Heart size is normal. There are no hilar masses. There are chest leads. IMPRESSION: Mild subsegmental atelectasis at the lung bases similar to old exam. Normal heart.
[2020-04-10 20:44] VITALS: BP 117/66; PULSE 97
--- NOTE | 2020-04-10 20:59 | ED ---
Medical Decision Making - Lab Data Result diagrams: 04/10/20 19:29 04/10/20 19:29 Lab Results 04/10/20 04/10/20 04/10/20 Range/Units 19:29 19:29 19:29 WBC 6.8 (3.8-10.6) k/uL RBC 3.89 L (4.30-5.90) m/uL Hgb 13.4 (13.0-17.5) gm/dL Hct 38.5 L (39.0-53.0) % MCV 99.0 (80.0-100.0) fL MCH 34.4 (25.0-35.0) pg MCHC 34.8 (31.0-37.0) g/dL RDW 13.2 (11.5-15.5) % Plt Count 113 L (150-450) k/uL MPV 7.0 Neutrophils % 52 % Lymphocytes % 34 % Monocytes % 3 % Eosinophils % 8 % Basophils % 1 % Neutrophils # 3.6 (1.3-7.7) k/uL Lymphocytes # 2.3 (1.0-4.8) k/uL Monocytes # 0.2 (0-1.0) k/uL Eosinophils # 0.5 (0-0.7) k/uL Basophils # 0.1 (0-0.2) k/uL PT 10.0 (9.0-12.0) sec INR 1.0 (<1.2) APTT 27.4 (22.0-30.0) sec Sodium 142 (137-145) mmol/L Potassium 3.8 (3.5-5.1) mmol/L Chloride 106 (98-107) mmol/L Carbon Dioxide 33 H (22-30) mmol/L Anion Gap 3 mmol/L BUN 20 (9-20) mg/dL Creatinine 1.23 (0.66-1.25) mg/dL Est GFR (CKD-EPI)AfAm 62 (>60 ml/min/1.73 sqM) Est GFR (CKD-EPI)NonAf 54 (>60 ml/min/1.73 sqM) Glucose 116 H (74-99) mg/dL Plasma Lactic Acid Junior (0.7-2.0) mmol/L Calcium 8.7 (8.4-10.2) mg/dL Magnesium 2.1 (1.6-2.3) mg/dL Total Bilirubin 0.6 (0.2-1.3) mg/dL AST 22 (17-59) U/L ALT 6 (4-49) U/L Alkaline Phosphatase 62 (38-126) U/L Troponin I (0.000-0.034) ng/mL NT-Pro-B Natriuret Pep pg/mL Total Protein 6.4 (6.3-8.2) g/dL Albumin 3.9 (3.5-5.0) g/dL Coronavirus (PCR) (Not Detectd) 04/10/20 04/10/20 04/10/20 Range/Units 19:29 19:29 19:29 WBC (3.8-10.6) k/uL RBC (4.30-5.90) m/uL Hgb (13.0-17.5) gm/dL Hct (39.0-53.0) % MCV (80.0-100.0) fL MCH (25.0-35.0) pg MCHC (31.0-37.0) g/dL RDW (11.5-15.5) % Plt Count (150-450) k/uL MPV Neutrophils % % Lymphocytes % % Monocytes % % Eosinophils % % Basophils % % Neutrophils # (1.3-7.7) k/uL Lymphocytes # (1.0-4.8) k/uL Monocytes # (0-1.0) k/uL Eosinophils # (0-0.7) k/uL Basophils # (0-0.2) k/uL PT (9.0-12.0) sec INR (<1.2) APTT (22.0-30.0) sec Sodium (137-145) mmol/L Potassium (3.5-5.1) mmol/L Chloride (98-107) mmol/L Carbon Dioxide (22-30) mmol/L Anion Gap mmol/L BUN (9-20) mg/dL Creatinine (0.66-1.25) mg/dL Est GFR (CKD-EPI)AfAm (>60 ml/min/1.73 sqM) Est GFR (CKD-EPI)NonAf (>60 ml/min/1.73 sqM) Glucose (74-99) mg/dL Plasma Lactic Acid Junior 0.7 (0.7-2.0) mmol/L Calcium (8.4-10.2) mg/dL Magnesium (1.6-2.3) mg/dL Total Bilirubin (0.2-1.3) mg/dL AST (17-59) U/L ALT (4-49) U/L Alkaline Phosphatase (38-126) U/L Troponin I <0.012 (0.000-0.034) ng/mL NT-Pro-B Natriuret Pep 94 pg/mL Total Protein (6.3-8.2) g/dL Albumin (3.5-5.0) g/dL Coronavirus (PCR) (Not Detectd) 04/10/20 Range/Units 20:30 WBC (3.8-10.6) k/uL RBC (4.30-5.90) m/uL Hgb (13.0-17.5) gm/dL Hct (39.0-53.0) % MCV (80.0-100.0) fL MCH (25.0-35.0) pg MCHC (31.0-37.0) g/dL RDW (11.5-15.5) % Plt Count (150-450) k/uL MPV Neutrophils % % Lymphocytes % % Monocytes % % Eosinophils % % Basophils % % Neutrophils # (1.3-7.7) k/uL Lymphocytes # (1.0-4.8) k/uL Monocytes # (0-1.0) k/uL Eosinophils # (0-0.7) k/uL Basophils # (0-0.2) k/uL PT (9.0-12.0) sec INR (<1.2) APTT (22.0-30.0) sec Sodium (137-145) mmol/L Potassium (3.5-5.1) mmol/L Chloride (98-107) mmol/L Carbon Dioxide (22-30) mmol/L Anion Gap mmol/L BUN (9-20) mg/dL Creatinine (0.66-1.25) mg/dL Est GFR (CKD-EPI)AfAm (>60 ml/min/1.73 sqM) Est GFR (CKD-EPI)NonAf (>60 ml/min/1.73 sqM) Glucose (74-99) mg/dL Plasma Lactic Acid Junior (0.7-2.0) mmol/L Calcium (8.4-10.2) mg/dL Magnesium (1.6-2.3) mg/dL Total Bilirubin (0.2-1.3) mg/dL AST (17-59) U/L ALT (4-49) U/L Alkaline Phosphatase (38-126) U/L Troponin I (0.000-0.034) ng/mL NT-Pro-B Natriuret Pep pg/mL Total Protein (6.3-8.2) g/dL Albumin (3.5-5.0) g/dL Coronavirus (PCR) Not Detected (Not Detectd) Disposition Clinical Impression: COPD exacerbation Disposition: HOME SELF-CARE Condition: Good Instructions (If sedation given, give patient instructions): COPD (Chronic Obstructive Pulmonary Disease) (ED) Prescriptions: methylPREDNISolone [Medrol Dose Pack] 4 mg PO DIRECTED #1 pack Is patient prescribed a controlled substance at d/c from ED?: No Referrals: Noble Elkins MD [Primary Care Provider] - 1-2 days Time of Disposition: 20:59
== END 2020-04-10 20:59 | disposition home or self-care (01) ==
LOC: EC 18:46
DX: J44.1 Chronic obstructive pulmonary disease with (acute) exacerbation (principal); I45.10 Unspecified right bundle-branch block; E78.5 Hyperlipidemia, unspecified; I11.0 Hypertensive heart disease with heart failure; I50.9 Heart failure, unspecified; N40.0 Benign prostatic hyperplasia without lower urinary tract symptoms; M06.9 Rheumatoid arthritis, unspecified; G89.29 Other chronic pain; M54.9 Dorsalgia, unspecified; G25.81 Restless legs syndrome; K21.9 Gastro-esophageal reflux disease without esophagitis; G43.909 Migraine, unspecified, not intractable, without status migrainosus; F41.9 Anxiety disorder, unspecified; Z20.828 Contact with and (suspected) exposure to other viral communicable diseases; Z79.51 Long term (current) use of inhaled steroids; Z79.899 Other long term (current) drug therapy; Z79.890 Hormone replacement therapy; Z79.52 Long term (current) use of systemic steroids; Z91.041 Radiographic dye allergy status; Z88.0 Allergy status to penicillin; Z87.891 Personal history of nicotine dependence
CPT/HCPCS: 36415; 94640; 93005; 83880; 80053; 83605; 83735; 84484; 85025; 85610; 85730; 87635; 71046; 99285; 96374; J1100

== ENCOUNTER 2020-05-10 13:22 | Inpatient (IN) | payer BC, MEDICARE ==
[2020-05-10] MEDS ORDERED: SODIUM CHLORIDE 0.9% 500 ML 500 ML IV STA (13:39)
[2020-05-10] MEDS ORDERED: SODIUM CHLORIDE 0.9% 1,000 ML IV STA (13:39)
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
[2020-05-10 14:24] LABS: Basophils % (A) 0 %; Eosinophils # (A) 0.1 k/uL (0-0.7); Eosinophils % (A) 1 %; HCT 40.9 % (39.0-53.0); Lymphocytes # (A) 2.1 k/uL (1.0-4.8); Lymphocytes % (A) 18 %; MCH 32.3 pg (25.0-35.0); MCHC 31.8 g/dL (31.0-37.0); MCV 101.5 fL (80.0-100.0); Macrocytosis Slight; Mean Platelet Volume 8.4; Monocytes # (A) 0.6 k/uL (0-1.0); Monocytes % (A) 5 %; Neutrophils # (A) 8.5 k/uL (1.3-7.7); Neutrophils % (A) 74 %; Platelet Count 112 k/uL (150-450); RBC 4.03 m/uL (4.30-5.90); RDW 13.5 % (11.5-15.5); WBC 11.4 k/uL (3.8-10.6)
--- NOTE | 2020-05-10 14:33 | XR ---
EXAMINATION TYPE: XR chest 2V DATE OF EXAM: 05/10/2020 COMPARISON: 04/24/2020 HISTORY: Short of breath TECHNIQUE: 2 views FINDINGS: There is poor inspiration with elevation of the left and right diaphragm. There is some mil d atelectasis and infiltrate at the lung bases. There is mild pulmonary congestion. Thoracic aorta is atheromatous.. IMPRESSION: There is new atelectasis at the lung bases compared to old exam. There is new pulmonary c ongestion and there is probably congestive heart failure.
[2020-05-10 15:17] LABS: ALT <6 U/L (4-49); AST 26 U/L (17-59); African American GFR (CKD) 71 (>60 ml/min/1.73 sqM); Albumin 3.1 g/dL (3.5-5.0); Alkaline Phosphatase 47 U/L (38-126); Anion Gap 6 mmol/L; Blood Urea Nitrogen 22 mg/dL (9-20); Calcium 7.9 mg/dL (8.4-10.2); Carbon Dioxide 30 mmol/L (22-30); Chloride 103 mmol/L (98-107); Creatine Kinase 111 U/L (55-170); Glucose 97 mg/dL (74-99); Magnesium 2.1 mg/dL (1.6-2.3); Non-African American GFR(CKD) 62 (>60 ml/min/1.73 sqM); Sodium 139 mmol/L (137-145); Total Bilirubin 0.8 mg/dL (0.2-1.3); Total Protein 5.7 g/dL (6.3-8.2)
[2020-05-10 15:23] LABS: Potassium 4.4 mmol/L (3.5-5.1)
--- NOTE | 2020-05-10 16:06 | CT ---
EXAMINATION TYPE: CT brain faithine wo con DATE OF EXAM: 05/10/2020 COMPARISON: 05/07/2019 CT brain HISTORY: Fall, weakness, AMS CT DLP: 1760 mGycm Automated exposure control for dose reduction was used. Images were obtained of the brain and cervical spine without contrast. Cervical vertebra have normal alignment. There is some narrowing of C5-6 and C6-7 disc spaces with sp urring of the endplates. The posterior elements are intact. There is mild cervical hypertrophic facet arthropathy. Prevertebral soft tissues are intact. Skull base is intact. There is normal aeration of the mastoid sinuses. There is 15 mm mucous retention cyst in the right posterior ethmoid sinus uncha nged. Ventricles have normal size. There is no mass effect nor midline shift. There is no sign of intracran ial hemorrhage. There is some ectasia of the basilar artery and intracranial internal carotid arterie s. The calvarium is intact. IMPRESSION: Spondylotic changes in the lower cervical spine. No fracture. No acute intracranial abnormality. 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 Brain is unchanged compared to old exam.
[2020-05-10] MEDS ORDERED: NALOXONE 0.4 MG/ML 1 ML VIAL IV PRN ×2 (17:03→17:53)
[2020-05-10 17:36] LABS: Appearance,Urine Clear (Clear); Bilirubin,Urine Negative (Negative); Blood,Urine Negative (Negative); Color,Urine Yellow; Glucose,Urine (UA) Negative (Negative); Ketones,Urine Negative (Negative); Leukocyte Esterase,Urine Negative (Negative); Nitrite,Urine Negative (Negative); PH, Urine 5.5 (5.0-8.0); Protein,Urine Negative (Negative); Specific Gravity,Urine 1.015 (1.001-1.035); Urobilinogen,Urine <2.0 mg/dL (<2.0)
[2020-05-10] MEDS: SODIUM CHLORIDE 0.9% 1,000 ML IV SCH (17:51)
[2020-05-10] MEDS ORDERED: ACETAMINOPHEN TAB 325 MG TAB PO PRN (17:53)
[2020-05-10] MEDS ORDERED: guaiFENesin 600 MG TABLET.ER PO PRN (17:57)
[2020-05-10] MEDS ORDERED: ALBUTEROL NEBULIZED 2.5 MG/3 ML INHALATION PRN (17:57)
[2020-05-10] MEDS ORDERED: CARBIDOPA-LEVODOPA 25-100 MG 1 EACH TAB PO SCH (18:00)
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
[2020-05-10] MEDS: [UNRECOGNIZED DRUG - OTHER] MISCELLANE SCH (19:47)
[2020-05-10] MEDS: MORPHINE MISCELLANE SCH (19:47)
[2020-05-10] MEDS: SYMBICORT 160-4.5 MCG INHALER INHALATION SCH (20:17)
[2020-05-10] MEDS: ATORVASTATIN 20 MG TAB PO SCH (21:53)
[2020-05-10] MEDS: CARBIDOPA-LEVODOPA 10-100 MG 1 EACH TAB PO SCH (21:53)
[2020-05-10] MEDS: CLOTRIMAZOLE TROCHE 10 MG TROCHE MUCOUS MEM SCH (21:53)
[2020-05-10] MEDS: GABAPENTIN 100 MG CAP PO SCH (21:54)
[2020-05-10] MEDS: PRIMIDONE 50 MG TAB PO SCH (21:54)
[2020-05-10] MEDS: DONEPEZIL 10 MG TAB PO SCH (21:54)
[2020-05-10] MEDS: FINASTERIDE 5 MG TAB PO SCH (21:54)
[2020-05-10 23:27] LABS: Ferritin 118.2 ng/mL (22.0-322.0)
[2020-05-11] LABS: % Iron Saturation 6.84 (15.00-50.00)
[2020-05-11] MEDS: CLOTRIMAZOLE TROCHE 10 MG TROCHE MUCOUS MEM SCH ×6 (00:02→23:31)
[2020-05-11] MEDS: HEPARIN SODIUM,PORCINE 10,000 UNIT/ML 1 ML VIAL SQ SCH ×4 (00:03→23:30)
[2020-05-11] MEDS: IPRATROPIUM-ALBUTEROL 3 ML NEB INHALATION PRN ×4 (03:56→21:12)
[2020-05-11] MEDS: LEVOTHYROXINE 88 MCG TAB PO SCH (06:28)
[2020-05-11] MEDS: SYMBICORT 160-4.5 MCG INHALER INHALATION SCH ×2 (07:36→21:12)
[2020-05-11] MEDS: GABAPENTIN 100 MG CAP PO SCH ×2 (09:14→15:43)
[2020-05-11] MEDS: FUROSEMIDE 20 MG TAB PO SCH (09:14)
[2020-05-11] MEDS: PANTOPRAZOLE 40 MG TABLET PO SCH (09:15)
[2020-05-11] MEDS: FERROUS SULFATE 325 MG TAB PO SCH (09:15)
[2020-05-11] MEDS: MULTIVITAMINS, THERA 1 EACH TAB PO SCH (09:17)
[2020-05-11] MEDS: POTASSIUM CHLORIDE ER 10 MEQ TAB.ER.PRT PO SCH (09:17)
[2020-05-11] MEDS: CARBIDOPA-LEVODOPA 10-100 MG 1 EACH TAB PO SCH ×3 (09:24→21:12)
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
--- NOTE | 2020-05-11 12:44 | P.PN ---
Subjective Progress Note Date: 05/11/20 No new complaints today. Pt's mentation is quite clear this morning. Objective - Vital Signs Vital signs: Vital Signs Temp 98.5 F 05/11/20 12:06 Pulse 85 05/11/20 12:06 Resp 18 05/11/20 12:06 BP 137/85 05/11/20 12:06 Pulse Ox 94 L 05/11/20 12:06 Intake & Output 05/10/20 05/11/20 05/11/20 18:59 06:59 18:59 Intake Total 710 Output Total 600 Balance 110 Weight 115.666 kg 115.666 kg Intake: Intake, IV Titration 120 Amount Sodium Chloride 0.9% 1, 120 000 ml @ 20 mls/hr IV . Q24H [facility] Rx#:[id number] Oral 590 Output: Urine 600 Other: Voiding Method Urinal - Exam Gen: awake, alert, obese HEENT: normocephalic, atraumatic, good hearing acuity, moist mucous membranes Resp: good air exchange, breathing comfortably with no accessory muscle use, bilateral posterior basilar crackles, no wheezing CVS: good distal perfusion x 4, RRR, no murmurs GI: soft, NTTP, ND : no SPT, no CVAT, henley catheter not present MSK: Trace pitting edema, no clubbing Neuro: non-focal, moving all extremities Psych: cooperative, euthymic mood - Labs CBC & Chem 7: 05/10/20 14:08 05/10/20 14:43 Labs: Abnormal Lab Results - Last 24 Hours (Table) 05/10/20 05/10/20 05/10/20 Range/Units 14:08 14:43 16:54 WBC 11.4 H (3.8-10.6) k/uL RBC 4.03 L (4.30-5.90) m/uL MCV 101.5 H (80.0-100.0) fL Plt Count 112 L (150-450) k/uL Neutrophils # 8.5 H (1.3-7.7) k/uL BUN 22 H (9-20) mg/dL Calcium 7.9 L (8.4-10.2) mg/dL Iron 18 L (65-175) ug/dL % Saturation 6.84 L (15.00-50.00) Total Protein 5.7 L (6.3-8.2) g/dL Albumin 3.1 L (3.5-5.0) g/dL Assessment and Plan Assessment: 1. Weakness, Fall 2. 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 COPD without exacerbation 4. Hypertension, essential 5. Hyperlipidemia 6. Alzheimers Dementia 7. Parkinsons Disease 8. RLS 9. Hypothyroidism 10. Chronic Back Pain 85 year old man with history of COPD, CJ, HTN/HLD, Alzheimer's/Parkinsons, RLS, Hypothyroidism, Chronic Back Pain on NAIDA and intrathecal pump presented with episode of fall in background of frequent episodes of falling asleep during routine activity. Plan: - admit to telemetry - hold home anti-HTNs, narcotics, benzos - adjust home NAIDA to half dose - orthostatics BID - PT/OT - pulm consult for severe CJ, COPD, and patient's non-compliance to BiPAP due to concern of not being able to clear mucus at night - neurology consulted by ER for AMS - oxygen PRN - duoneb PRN - can consider room air ABG if suspicion of OHS superimposed on CJ - echo given pulm vasc congestion Regarding Chronic Medical Conditions: - continue home lasix, lipitor - continue home aricept, sinemet, ropinirole, primidone - continue home synthroid Full Code
[2020-05-11] MEDS: [UNRECOGNIZED DRUG - OTHER] MISCELLANE SCH (17:24)
[2020-05-11] MEDS: MORPHINE MISCELLANE SCH (17:24)
[2020-05-11] MEDS: GABAPENTIN 300 MG CAP PO SCH ×2 (18:14→21:37)
[2020-05-11] MEDS: ASPIRIN 81 MG PO SCH (18:14)
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
[2020-05-11] MEDS: ATORVASTATIN 20 MG TAB PO SCH (21:12)
[2020-05-11] MEDS: DONEPEZIL 10 MG TAB PO SCH (21:12)
[2020-05-11] MEDS: FINASTERIDE 5 MG TAB PO SCH (21:12)
[2020-05-11] MEDS: PRIMIDONE 50 MG TAB PO SCH (21:12)
[2020-05-11] MEDS: SODIUM CHLORIDE 0.9% 1,000 ML IV SCH (21:38)
[2020-05-11] MEDS ORDERED: DOCUSATE 100 MG CAP PO PRN (22:27)
[2020-05-12] MEDS: CLOTRIMAZOLE TROCHE 10 MG TROCHE MUCOUS MEM SCH ×2 (05:42→11:48)
[2020-05-12] MEDS: LEVOTHYROXINE 88 MCG TAB PO SCH (05:43)
[2020-05-12] MEDS: SYMBICORT 160-4.5 MCG INHALER INHALATION SCH (07:39)
[2020-05-12] MEDS: IPRATROPIUM-ALBUTEROL 3 ML NEB INHALATION PRN ×2 (07:39→11:29)
[2020-05-12] MEDS: FUROSEMIDE 20 MG TAB PO SCH (08:19)
[2020-05-12] MEDS: GABAPENTIN 300 MG CAP PO SCH (08:19)
[2020-05-12] MEDS: MULTIVITAMINS, THERA 1 EACH TAB PO SCH (08:19)
[2020-05-12] MEDS: ASPIRIN 81 MG PO SCH (08:19)
[2020-05-12] MEDS: PANTOPRAZOLE 40 MG TABLET PO SCH (08:19)
[2020-05-12] MEDS: FERROUS SULFATE 325 MG TAB PO SCH (08:19)
[2020-05-12] MEDS: POTASSIUM CHLORIDE ER 10 MEQ TAB.ER.PRT PO SCH (08:20)
[2020-05-12] MEDS: CARBIDOPA-LEVODOPA 10-100 MG 1 EACH TAB PO SCH ×2 (08:21→14:10)
[2020-05-12] MEDS: HEPARIN SODIUM,PORCINE 10,000 UNIT/ML 1 ML VIAL SQ SCH (08:21)
[2020-05-12] MEDS ORDERED: dexAMETHasone 2 MG TAB PO SCH (09:00)
[2020-05-12] MEDS ORDERED: polyethylene glycoL 3350 17 GM POWD.PACK PO SCH (09:30)
--- NOTE | 2020-05-12 13:13 | P.DS ---
Providers Date of admission: 05/10/20 17:03 Expected date of discharge: 05/12/20 Attending physician: Edward Isabel MD Consults: 05/10/20 17:03 Consult Physician Routine Consulting Provider: Parvin Guerrero Consult Reason/Comments: altered mental status Do you want consulting provider notified?: Yes 05/10/20 17:55 Consult Physician Routine Consulting Provider: Tee Pepe Consult Reason/Comments: severe CJ, COPD, non-compliant to BIPAP d/t concern over mucus clearance Do you want consulting provider notified?: Yes Primary care physician: Noble Elkins MD Hospital Course: Discharge Diagnosis: Acute metabolic encephalopathy Weakness Falls CJ off bipap due to recurrent infections per patient COPD without exacerbation HTN HLD Dementia Morbid Obesity with BMI 39.9 RLA Hypothyroidism Chronic Back pain Hospital Course: Patient is an 85-year-old male for history of COPD, obesity, obstructive sleep apnea no longer on BiPAP support, hypertension, dyslipidemia, Parkinson's disease, ROS, Alzheimer's dementia, and chronic back pain who presented to the ER with an acute episode of altered mentation, weakness, and a fall. In the ER he underwent an extensive evaluation. On presentation his blood pressure was 91/52 and heart rate was 73. On ems arrival his pulse Ox was 83 on arrival to the ER he was already on 2 L nasal cannula and pulse ox is 96%. Initial laboratory analysis is mildly elevated white blood cell count 11.4, basic meta bolic profile was unremarkable, cortisol level normal, urinalysis normal, chest x-ray pulmonary vascular congestion. Influenza and pelvic 19 testing were negative. He was placed in the hospital for further management. He was seen by pulmonary and was cleared from their standpoint as his COPD is at baseline. He was seen by neurology and was worried this was due to polypharmacy. Patient does not want to adjust his medications at this point in time but will discuss this further with Dr. Hilliard. 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 He was seen by physical therapy and was requiring standby only with frequent resting for deconditioning. He was determined stable for discharge home. Patient and family do don't want decrease gabapentin at this time. They would like palliative care and home health care has been made for [place]. Patient seen and examined at bedside. He was having some nausea this morning after pills and improved. No chest pain or shortness of breath, weakness improved. Vital signs reviewed and stable. General: non toxic, no distress, appears at stated age Derm: warm, dry Head: atraumatic, normocephalic, symmetric Eyes: EOMI, no lid lag, anicteric sclera Mouth: no lip lesion, mucus membranes moist Cardiovascular: S1S2 reg, no murmur, positive posterior tibial pulse bilateral, Lungs: Decreased breath sounds bilateral, no rhonchi, no rales , no accessory muscle use Abdominal: soft, nontender to palpation, no guarding, no appreciable organomegaly Ext: no gross muscle atrophy, trace edema, no contractures Neuro: CN II-XI grossly intact, no focal neuro deficits Psych: Alert, oriented, appropriate affect A total of 35 minutes of time were spent preparing this complex discharge summary . Patient Condition at Discharge: Fair Plan - Discharge Summary New Discharge Prescriptions: New polyethylene glycoL 3350 [Miralax] 17 gm PO DAILY powd.pack Continue rOPINIRole HCL [Requip] 0.5 mg PO TID Levothyroxine Sodium [Synthroid] 175 mcg PO DAILY Donepezil [Aricept] 10 mg PO HS Atorvastatin [Lipitor] 20 mg PO HS Multivitamin [Multivitamins Adult Gummies] 1 tab PO DAILY Furosemide [Lasix] 20 mg PO DAILY LORazepam [Ativan] 0.5 mg PO TID PRN PRN Reason: Anxiety Potassium Chloride ER [K-Dur 10] 10 meq PO DAILY Finasteride [Proscar] 5 mg PO HS HYDROcodone/APAP 10-325MG [[place] 10-325] 1 tab PO BID PRN PRN Reason: Pain Carbidopa-Levodopa 10-100 mg [Sinemet 10-100 mg] 1 tab PO TID@0800,1400,2000 Iron 18 mg PO DAILY Morphine+Unknown Medication Pain Pump 1 dose INTRATHECA CONTINUOUS Gabapentin [Neurontin] 400 mg PO TID Dexamethasone [Decadron] 2 mg PO Q72H Clotrimazole [place] [Mycelex [place]] 10 mg MUCOUS MEM 5XD Albuterol Inhaler [Ventolin Hfa Inhaler] 2 puff INHALATION RT-QID PRN PRN Reason: Shortness Of Breath Pantoprazole Sodium [Protonix] 40 mg PO DAILY Budesonide-Formot 160-4.5 Mcg [Symbicort 160-4.5 Mcg Inhaler] 2 puff INHALATION RT-DAILY Primidone [Mysoline] 50 mg PO HS Ipratropium-Albuterol Nebulize [Duoneb 0.5 mg-3 mg/3 ml Soln] 3 ml INHALATION RT-Q4H PRN PRN Reason: Shortness Of Breath Carbidopa-Levodopa 25-100 mg [Sinemet 25-100 mg] 1 tab PO DIRECTED guaiFENesin [Mucinex] 1,200 mg PO Q6H PRN PRN Reason: COUGH AND CONGESTION Discontinued Metoprolol Tartrate [Lopressor] 12.5 mg PO AC-BID Discharge Medication List Atorvastatin [Lipitor] 20 mg PO HS 06/30/16 [History] Donepezil [Aricept] 10 mg PO HS 06/30/16 [History] Levothyroxine Sodium [Synthroid] 175 mcg PO DAILY 06/30/16 [History] rOPINIRole HCL [Requip] 0.5 mg PO TID 06/30/16 [History] Multivitamin [Multivitamins Adult Gummies] 1 tab PO DAILY 04/24/17 [History] Furosemide [Lasix] 20 mg PO DAILY 06/12/18 [History] LORazepam [Ativan] 0.5 mg PO TID PRN 06/12/18 [History] Potassium Chloride ER [K-Dur 10] 10 meq PO DAILY 06/12/18 [History] Finasteride [Proscar] 5 mg PO HS 07/31/18 [History] HYDROcodone/APAP 10-325MG [[place] 10-325] 1 tab PO BID PRN 09/01/18 [History] Carbidopa-Levodopa 10-100 mg [Sinemet 10-100 mg] 1 tab PO TID@0800,1400,2000 04/07/19 [History] Iron 18 mg PO DAILY 04/07/19 [History] Morphine+Unknown Medication Pain Pump 1 dose INTRATHECA CONTINUOUS 06/17/19 [H istory] Gabapentin [Neurontin] 400 mg PO TID 01/25/20 [History] Albuterol Inhaler [Ventolin Hfa Inhaler] 2 puff INHALATION RT-QID PRN 04/10/20 [History] Budesonide-Formot 160-4.5 Mcg [Symbicort 160-4.5 Mcg Inhaler] 2 puff INHALATION RT-DAILY 04/10/20 [History] Clotrimazole [place] [Mycelex [place]] 10 mg MUCOUS MEM 5XD 04/10/20 [History] Dexamethasone [Decadron] 2 mg PO Q72H 04/10/20 [History] Pantoprazole Sodium [Protonix] 40 mg PO DAILY 04/10/20 [History] Carbidopa-Levodopa 25-100 mg [Sinemet 25-100 mg] 1 tab PO DIRECTED 05/10/20 [History] Ipratropium-Albuterol Nebulize [Duoneb 0.5 mg-3 mg/3 ml Soln] 3 ml INHALATION RT-Q4H PRN 05/10/20 [History] Primidone [Mysoline] 50 mg PO HS 05/10/20 [History] guaiFENesin [Mucinex] 1,200 mg PO Q6H PRN 05/10/20 [History] polyethylene glycoL 3350 [Miralax] 17 gm PO DAILY powd.pack 05/12/20 [Rx] Follow up Appointment(s)/Referral(s): Noble Elkins MD [Primary Care Provider] - 1-2 days Jose Hilliard MD [Medical Doctor] - 1 Week Activity/Diet/Wound Care/Special Instructions: Activity: as tolerated Diet: heart health, low sodium Special Instructions: Consider medication adjustments Discharge Disposition: HOME WITH HOME HEALTH SERVICES
[2020-05-12 13:35] VITALS: BP 121/70; PULSE 74; RESP 18; TEMP 98.5
--- NOTE | 2020-05-12 14:49 | P.PN ---
Subjective Progress Note Date: 05/12/20 Principal diagnosis: Mental status changes. This is a pleasant 85-year-old gentleman who follows with Dr. Elkins as his primary care provider. He has a history of gastroesophageal reflux disease, hypertension, hyperlipidemia, rheumatoid arthritis, hypothyroidism, BPH, obesity , Alzheimer's dementia, Parkinson's, chronic pain with intrathecal morphine pain pump. He also has a history of chronic obstructive pulmonary disease in a former smoker. He follows with Dr. Diaz in our office. He was brought into the emergency room yesterday after developing generalized weakness and altered mental status. He is seen today in consultation on the regular medical floor. He is awake and alert in no acute distress. He is oriented 3. He states he developed significant weakness and unable to stand yesterday while getting up to go to the bathroom. He lives with his daughter who tried to help them. He also states he was confused and not clear of his surroundings until 4:00 this morning. A computed tomography scan of the brain did not reveal any acute intracranial abnormalities. Chest x-ray reveals some atelectasis of lung bases. White count 11.4. Hemoglobin 13.0. Sodium 139. Potassium 4.4. Creatinine 1.09. ProBNP 117. Troponin negative 1. TSH 3.12. Urinalysis is clear. Influenza screen negative. CoVID 19 screen negative. He's afebrile. Maintaining O2 saturations in the 90s on 2 L/m per nasal cannula. Remains on his Symbicort and DuoNeb inhalations. Progress note dated 05/12/2020. 85-year-old male seen by my partner yesterday in consultation. The patient came in with a history of gastroesophageal reflux disease, hypertension, hyperlipidemia, rheumatoid arthritis, hypothyroidism, BPH, obesity, dementia, Parkinson's disease, and chronic pain syndrome with implanted pain pump. He also has a history of COPD from prior tobacco use. He typically sees my partner in the office for his COPD. He apparently was brought in to the emergency dep artment with generalized weakness and mental status changes. He's not sure exactly what happened to him and he doesn't really have any memory as to why he ended up in the hospital. Currently, he feels like he is back to baseline. I questioned him as to whether or not he was taking excess narcotics and he states he did not. He states that his family member gives him narcotics very infrequently to him. I also asked whether or not he was sick prior to coming into the hospital such as fever, chills, cough, phlegm production, chest pain, or anything else that might suggest infection or sepsis. He denies all of those issues. Again, currently, he's back to baseline. Objective - Vital Signs Vital signs: Vital Signs Temp 98.5 F 05/12/20 12:19 Pulse 74 05/12/20 12:19 Resp 18 05/12/20 12:19 BP 121/70 05/12/20 12:19 Pulse Ox 95 05/12/20 12:19 Intake & Output 05/11/20 05/12/20 05/12/20 18:59 06:59 18:59 Intake Total 760 960 Output Total 800 725 Balance 760 160 -725 Intake: Intake, IV Titration 160 240 Amount Sodium Chloride 0.9% 1, 160 240 000 ml @ 20 mls/hr IV . Q24H JUDY Rx#:[id number] Oral 600 720 Output: Urine 800 725 Other: Voiding Method Urinal Urinal Urinal # Voids 5 - Exam No acute distress, oriented 3. Currently, not on any supplemental oxygen. Te mperature 98.5. HEENT examination is grossly unremarkable. Mucous membranes are moist. No oral lesions. Neck supple. Full range of motion. No adenopathy thyromegaly or neck vein distention. Cardiovascular examination reveals regular rhythm rate. S1-S2 normal. No S3 or S4. No discernible murmur noted. Heart rate 74 bpm. Lungs reveal clear but diminished breath sounds. No wheezes rhonchi or crackles. Breath sounds equal bilaterally. Abdomen soft bowel sounds are heard. No masses or tenderness. Extremities are intact. No cyanosis clubbing or edema. Skin is without rash or lesion. Neurologic examination is brief but nonfocal. - Labs CBC & Chem 7: 05/10/20 14:08 05/10/20 14:43 Labs: Abnormal Lab Results - Last 24 Hours (Table) 05/10/20 Range/Units 14:08 Transferrin 189.0 L (204.0-354.0) mg/dL Microbiology - Last 24 Hours (Table) 05/10/20 14:08 Blood Culture - Preliminary Blood No Growth after 24 hours Assessment and Plan Assessment: 1 Generalized weakness and fatigue of unclear etiology 2 Acute mental status, recovered 3 Parkinson's 4 Alzheimer's dementia 5 Chronic obstructive pulmonary disease, currently inactive in stable, on home oxygen at 2 L 6 Smoker 7 Obesity 8 Hypertension 9 Hyperlipidemia 10 Chronic pain with pain pump in place 11 Anxiety Plan: Plan dated 05/12/2020. The patient appears stable. The patient feels like he is back to baseline. His vital signs are stable. His laboratory data from yesterday are reviewed. His COVID 19 screen was negative. His head CT did not show anything acutely abnormal. His urinalysis was negative. From the pulmonary standpoint, the patient could be discharged if okay with the primary service. We'll leave that up to the primary service. From the pulmonary standpoint, the patient's very stable. He will follow-up with my partner in the office for his underlying COPD. He does not need any refills on his COPD medications. His prognosis is guarded. Time with Patient: Less than 30
== END 2020-05-12 15:04 | disposition home health service (06) | DRG 71 ==
LOC: EC 13:22 → 5NMEDONC 17:03
PROVIDERS: ADMIT Internal Medicine; ATTEND Internal Medicine
DX: G93.41 Metabolic encephalopathy (principal); B37.0 Candidal stomatitis; J96.11 Chronic respiratory failure with hypoxia; J98.11 Atelectasis; G20 Parkinson's disease; F02.80 Dementia in other diseases classified elsewhere, unspecified severity, without behavioral disturbance, psychotic disturbance, mood disturbance, and anxiety; G30.9 Alzheimer's disease, unspecified; I11.0 Hypertensive heart disease with heart failure; I50.9 Heart failure, unspecified; J44.9 Chronic obstructive pulmonary disease, unspecified; M06.9 Rheumatoid arthritis, unspecified; E66.01 Morbid (severe) obesity due to excess calories; G47.33 Obstructive sleep apnea (adult) (pediatric); Z51.5 Encounter for palliative care; Z20.822 Contact with and (suspected) exposure to COVID-19; E78.5 Hyperlipidemia, unspecified; I45.10 Unspecified right bundle-branch block; G47.61 Periodic limb movement disorder; K21.9 Gastro-esophageal reflux disease without esophagitis; G89.4 Chronic pain syndrome; M54.9 Dorsalgia, unspecified; E03.9 Hypothyroidism, unspecified; G25.81 Restless legs syndrome; F41.9 Anxiety disorder, unspecified; K57.90 Diverticulosis of intestine, part unspecified, without perforation or abscess without bleeding; Z68.39 Body mass index [BMI] 39.0-39.9, adult; N40.0 Benign prostatic hyperplasia without lower urinary tract symptoms; H26.9 Unspecified cataract; H54.61 Unqualified visual loss, right eye, normal vision left eye; H53.2 Diplopia; G56.01 Carpal tunnel syndrome, right upper limb; R29.6 Repeated falls; Z91.19 Patient's noncompliance with other medical treatment and regimen; Z79.51 Long term (current) use of inhaled steroids; Z79.890 Hormone replacement therapy; Z79.899 Other long term (current) drug therapy; Z87.891 Personal history of nicotine dependence; Z86.19 Personal history of other infectious and parasitic diseases; Z96.1 Presence of intraocular lens; Z87.19 Personal history of other diseases of the digestive system; Z87.39 Personal history of other diseases of the musculoskeletal system and connective tissue; Z87.01 Personal history of pneumonia (recurrent); Z86.2 Personal history of diseases of the blood and blood-forming organs and certain disorders involving the immune mechanism; Z86.69 Personal history of other diseases of the nervous system and sense organs; Z96.89 Presence of other specified functional implants; Z91.81 History of falling; Z98.890 Other specified postprocedural states; Z88.0 Allergy status to penicillin; Z91.041 Radiographic dye allergy status; W05.0XXA Fall from non-moving wheelchair, initial encounter; Z81.1 Family history of alcohol abuse and dependence; Z83.79 Family history of other diseases of the digestive system; Z83.1 Family history of other infectious and parasitic diseases; Z80.1 Family history of malignant neoplasm of trachea, bronchus and lung; Z82.49 Family history of ischemic heart disease and other diseases of the circulatory system; Z81.2 Family history of tobacco abuse and dependence
CPT/HCPCS: 36415; 70450; 71046; 72125; 80053; 81003; 82140; 82533; 82550; 82728; 83540; 83550; 83605; 83735; 83880; 84443; 84466; 84484; 85025; 87040; 87636; 93005; 93306; 94640; 94760; 96360; 96361; 99285

== ENCOUNTER 2020-07-08 15:44 | Inpatient (IN) | payer MEDICARE ==
[2020-07-08] MEDS ORDERED: methylPREDNISolone SOD SUCCI 125 MG/2 ML VIAL IV STA (15:51)
[2020-07-08] MEDS ORDERED: IPRATROPIUM-ALBUTEROL 3 ML NEB INHALATION STA (15:51)
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
[2020-07-08 16:09] LABS: Basophils % (A) 0 %; Eosinophils # (A) 0.1 k/uL (0-0.7); Eosinophils % (A) 1 %; HCT 42.5 % (39.0-53.0); HGB 14.2 gm/dL (13.0-17.5); Lymphocytes # (A) 1.1 k/uL (1.0-4.8); Lymphocytes % (A) 15 %; MCH 32.6 pg (25.0-35.0); MCHC 33.5 g/dL (31.0-37.0); MCV 97.1 fL (80.0-100.0); Mean Platelet Volume 7.1; Monocytes # (A) 0.2 k/uL (0-1.0); Monocytes % (A) 3 %; Neutrophils # (A) 5.7 k/uL (1.3-7.7); Neutrophils % (A) 80 %; Platelet Count 127 k/uL (150-450); RBC 4.37 m/uL (4.30-5.90); RDW 13.2 % (11.5-15.5); WBC 7.1 k/uL (3.8-10.6)
[2020-07-08 16:18] LABS: INR 0.9 (<1.2); Prothrombin Time 9.7 sec (9.0-12.0)
[2020-07-08 16:19] LABS: Partial Thromboplastin Time 25.8 sec (22.0-30.0)
[2020-07-08 16:21] LABS: Albumin 4.2 g/dL (3.5-5.0); Magnesium 2.2 mg/dL (1.6-2.3); Potassium 4.7 mmol/L (3.5-5.1); Total Bilirubin 0.5 mg/dL (0.2-1.3); Total Protein 6.9 g/dL (6.3-8.2)
--- NOTE | 2020-07-08 16:35 | XR ---
EXAMINATION TYPE: XR chest 2V DATE OF EXAM: 07/08/2020 COMPARISON: 05/10/2020 INDICATION: Difficulty breathing TECHNIQUE: Frontal and lateral views of the chest are obtained. FINDINGS: The heart size is normal. The pulmonary vasculature is normal. Lingular consolidation is present. Some right basilar infiltrate may be present. Correlate for pneumo antonia. Atypical pneumonia should be considered.. IMPRESSION: 1. Correlate for lingular pneumonia. 2. Bibasilar infiltrates may suggest subsegmental atelectasis or atypical pneumonia.
[2020-07-08] MEDS ORDERED: SODIUM CHLORIDE 0.9% 1,000 ML IV STA (16:52)
[2020-07-08] MEDS ORDERED: PNEUMONIA PROTOCOL UTILIZED 1 EACH MISC PO PRN (19:04)
[2020-07-08] MEDS ORDERED: LEVOFLOXACIN 750MG-D5W PMX 750 MG in DEXTROSE/WATER 1 150ML.BAG IVPB STA (19:04)
[2020-07-08] MEDS ORDERED: LORazepam 0.5 MG TAB PO PRN (19:05)
[2020-07-08] MEDS ORDERED: guaiFENesin 600 MG TABLET.ER PO PRN (19:05)
[2020-07-08] MEDS ORDERED: CLOTRIMAZOLE TROCHE 10 MG TROCHE MUCOUS MEM PRN (19:05)
[2020-07-08] MEDS ORDERED: HYDROcodone/APAP 10-325MG 1 EACH TAB PO PRN (19:05)
[2020-07-08] MEDS: IPRATROPIUM-ALBUTEROL 3 ML NEB INHALATION SCH (19:58)
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
[2020-07-08] MEDS: DONEPEZIL 10 MG TAB PO SCH (20:31)
[2020-07-08] MEDS: SENNOSIDES 8.6 MG TAB PO SCH (20:31)
[2020-07-08] MEDS: GABAPENTIN 400 MG CAP PO SCH (20:31)
[2020-07-08] MEDS: FINASTERIDE 5 MG TAB PO SCH (20:31)
[2020-07-08] MEDS: CARBIDOPA-LEVODOPA 25-100 MG 1 EACH TAB PO SCH (20:31)
[2020-07-08] MEDS: ATORVASTATIN 20 MG TAB PO SCH (20:31)
[2020-07-08] MEDS: TAMSULOSIN 0.4 MG CAP.ER.24H PO SCH (20:32)
[2020-07-08] MEDS: PRIMIDONE 50 MG TAB PO SCH (20:32)
[2020-07-08] MEDS: SODIUM CHLORIDE 0.9% 1,000 ML IV SCH (20:32)
[2020-07-09] MEDS: IPRATROPIUM-ALBUTEROL 3 ML NEB INHALATION SCH ×6 (00:02→20:43)
[2020-07-09 05:26] LABS: HCT 38.7 % (39.0-53.0); HGB 13.1 gm/dL (13.0-17.5); MCH 33.2 pg (25.0-35.0); MCHC 33.9 g/dL (31.0-37.0); MCV 97.9 fL (80.0-100.0); Mean Platelet Volume 7.6; Platelet Count 129 k/uL (150-450); RBC 3.95 m/uL (4.30-5.90); RDW 13.4 % (11.5-15.5); WBC 7.7 k/uL (3.8-10.6)
[2020-07-09 05:42] LABS: Calcium 8.9 mg/dL (8.4-10.2); Potassium 4.7 mmol/L (3.5-5.1)
[2020-07-09] MEDS: LEVOTHYROXINE 88 MCG TAB PO SCH (06:01)
[2020-07-09] MEDS: SENNOSIDES 8.6 MG TAB PO SCH ×2 (08:15→20:09)
[2020-07-09] MEDS: FERROUS SULFATE 325 MG TAB PO SCH (08:16)
[2020-07-09] MEDS: CARBIDOPA-LEVODOPA 25-100 MG 1 EACH TAB PO SCH ×3 (08:16→20:09)
[2020-07-09] MEDS: POTASSIUM CHLORIDE ER 10 MEQ TAB.ER.PRT PO SCH (08:17)
[2020-07-09] MEDS: PANTOPRAZOLE 40 MG TABLET PO SCH (08:17)
[2020-07-09] MEDS: MULTIVITAMINS, THERA 1 EACH TAB PO SCH (08:17)
[2020-07-09] MEDS: DOCUSATE 100 MG CAP PO SCH ×2 (08:17→14:28)
[2020-07-09] MEDS: SODIUM CHLORIDE 0.9% 1,000 ML IV SCH (08:18)
[2020-07-09] MEDS: polyethylene glycoL 3350 17 GM POWD.PACK PO SCH (08:19)
[2020-07-09] MEDS: GABAPENTIN 400 MG CAP PO SCH ×3 (08:22→20:09)
[2020-07-09] MEDS: SYMBICORT 160-4.5 MCG INHALER INHALATION SCH ×2 (08:29→20:42)
[2020-07-09] MEDS ORDERED: FUROSEMIDE 20 MG TAB PO SCH (09:00)
[2020-07-09] MEDS ORDERED: dexAMETHasone 2 MG TAB PO SCH (09:00)
[2020-07-09] MEDS ORDERED: FAMOTIDINE 20 MG/2 ML VIAL IV ONE (15:12)
[2020-07-09] MEDS ORDERED: diphenhydrAMINE 50 MG/ML 1 ML VIAL IVP ONE (15:12)
[2020-07-09] MEDS ORDERED: methylPREDNISolone SOD SUCCI 125 MG/2 ML VIAL IV ONE (15:12)
--- NOTE | 2020-07-09 15:22 | P.PN ---
<John Kohli - Last Filed: 07/09/20 14:58> Subjective Progress Note Date: 07/09/20 Principal diagnosis: Community-acquired pneumonia Hospital course: Patient is a 85-year-old male with a past medical history including COPD home oxygen dependent on 2 L at all times, hypertension, and hyperlipidemia whom presented to the emergency department for reports of increased cough, increased shortness of breath, and pleuritic chest pain. Full workup was completed in the ED with chest x-ray positive for bilateral infiltrates suggestive of pneumonia along with possible lingular pneumonia. Influenza and Covid PCR is were negative. Troponin negative at < 0.012, d-dimer 0.68 and pro-BMP 184. WBC normal findings is 7.1 and lactate 1.9. EKG showing sinus tachycardia at 101 bpm with no noted T-wave or ST abnormalities. Patient admitted under our services and started on antibiotics of Levaquin, oral steroids, and scheduled DuoNeb treatments. Consult placed for pulmonology and appreciate further recommendations. Physical exam: General: non toxic, no distress, appears at stated age Derm: warm, dry Head: atraumatic, normocephalic, symmetric Eyes: EOMI, no lid lag, anicteric sclera Mouth: no lip lesion, mucus membranes moist Cardiovascular: S1S2 reg, no murmur, positive posterior tibial pulse bilateral, Lungs: Respirations even, regular, and unlabored on 2 L O2 via nasal cannula and no accessory muscle usage. Lungs with soft diffuse rhonchi bilaterally, no wheezes or crackles noted. Abdominal: Obese abdomen soft, nontender to palpation, no guarding, no appreciable organomegaly Ext: no gross muscle atrophy, 1+ pitting bilateral lower extremity edema, no contractures Neuro: CN II-XI grossly intact, no focal neuro deficits Psych: Alert, oriented, appropriate affect Assessment and Plan of Care: Community-acquired pneumonia in patient with chronic COPD home oxygen dependent, not in acute exacerbation -Chest x-ray positive for bilateral infiltrates suggestive of pneumonia along with possible lingular pneumonia -Continue antibiotics with Levaquin (patient has penicillin ALLERGY) -Continue steroids Decadron 2 mg by mouth every 72 hours (day 2 of steroids) -Bronchodilator protocol with scheduled DuoNeb treatments every 4 hours. -Continue oxygenation as needed to maintain SpO2 greater than or equal to 90%. -Mucinex 1200 mg every 12 hours -Pulmonology consulted, appreciate further recommendations Prerenal azotemia -BUN 25, creatinine 1.11, and GFR of 60 -Continue gentle hydration with 0.9% normal saline at 50 mL's per hour. -Continue close monitoring with repeat a.m. labs Hypertension -Monitor vital signs and Continue daily medication management Hyperlipidemia -Continue daily medication management with atorvastatin. -Heart healthy diet. Hypothyroidism -Continue daily medication management with Synthroid 176 mcg each morning. BPH -Continue daily medication management with Proscar and Flomax. Chronic thrombocytopenia, stable -Platelets 129,000 CODE STATUS: Full code DVT prophylaxis: SCDs Discussed with: Patient and RN Anticipated discharge date: Clinical course to determine Anticipated discharge place: Home A total of 45 minutes was spent on the care of this complex patient more than 50% of the time was spent in counseling and care coordination. Objective - Vital Signs Vital signs: Vital Signs Temp 98.7 F 07/09/20 11:58 Pulse 87 07/09/20 11:58 Resp 18 07/09/20 11:58 BP 142/84 07/09/20 11:58 Pulse Ox 93 L 07/09/20 11:58 Intake & Output 07/08/20 07/09/20 07/09/20 18:59 06:59 18:59 Weight 117.48 kg 117.48 kg - Labs CBC & Chem 7: 07/09/20 04:32 07/09/20 04:32 Labs: Abnormal Lab Results - Last 24 Hours (Table) 07/08/20 07/08/20 07/08/20 Range/Units 15:54 15:54 15:54 RBC (4.30-5.90) m/uL Hct (39.0-53.0) % Plt Count 127 L (150-450) k/uL D-Dimer (<0.60) mg/L FEU Carbon Dioxide (22-30) mmol/L BUN 22 H (9-20) mg/dL Glucose 127 H (74-99) mg/dL Plasma Lactic Acid Junior 2.6 H* (0.7-2.0) mmol/L Creatine Kinase 335 H (55-170) U/L 07/08/20 07/09/20 07/09/20 Range/Units 15:54 04:32 04:32 RBC 3.95 L (4.30-5.90) m/uL Hct 38.7 L (39.0-53.0) % Plt Count 129 L (150-450) k/uL D-Dimer 0.68 H (<0.60) mg/L FEU Carbon Dioxide 32 H (22-30) mmol/L BUN 25 H (9-20) mg/dL Glucose 147 H (74-99) mg/dL Plasma Lactic Acid Junior (0.7-2.0) mmol/L Creatine Kinase (55-170) U/L Microbiology - Last 24 Hours (Table) 07/08/20 20:18 Gram Stain - Preliminary Sputum Sputum Culture - Preliminary <Harrison Bowden F - Last Filed: 07/09/20 16:30> Subjective Patient seen and examined independently, patient was also seen by John Kohli and case was discussed. I'm in agreement with subjective, physical exam and assessment and plan above. Objective - Vital Signs Vital signs: Vital Signs Temp 98.7 F 07/09/20 11:58 Pulse 57 L 07/09/20 16:16 Resp 18 07/09/20 11:58 BP 142/84 07/09/20 11:58 Pulse Ox 93 L 07/09/20 11:58 Intake & Output 07/08/20 07/09/20 07/09/20 18:59 06:59 18:59 Weight 117.48 kg 117.48 kg - Labs CBC & Chem 7: 07/09/20 04:32 07/09/20 04:32 Labs: Abnormal Lab Results - Last 24 Hours (Table) 07/08/20 07/08/20 07/09/20 Range/Units 15:54 15:54 04:32 RBC 3.95 L (4.30-5.90) m/uL Hct 38.7 L (39.0-53.0) % Plt Count 129 L (150-450) k/uL D-Dimer 0.68 H (<0.60) mg/L FEU Carbon Dioxide (22-30) mmol/L BUN (9-20) mg/dL Glucose (74-99) mg/dL Plasma Lactic Acid Junior 2.6 H* (0.7-2.0) mmol/L 07/09/20 Range/Units 04:32 RBC (4.30-5.90) m/uL Hct (39.0-53.0) % Plt Count (150-450) k/uL D-Dimer (<0.60) mg/L FEU Carbon Dioxide 32 H (22-30) mmol/L BUN 25 H (9-20) mg/dL Glucose 147 H (74-99) mg/dL Plasma Lactic Acid Junior (0.7-2.0) mmol/L Microbiology - Last 24 Hours (Table) 07/08/20 20:18 Gram Stain - Preliminary Sputum Sputum Culture - Preliminary
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
--- NOTE | 2020-07-09 15:58 | CT ---
EXAMINATION TYPE: CT angio chest DATE OF EXAM: 07/09/2020 COMPARISON: 01/05/2018 HISTORY: Chest pain. SOB CT DLP: 394.8 mGycm CONTRAST: CT chest with contrast and 3D reconstruction with MIP imaging is performed with IV Contrast, patient injected with 80 mL of Isovue 370. Contrast-enhanced CT of the chest was performed through the course of the pulmonary arteries with matthew g and mediastinal window settings submitted. 3D reconstruction with MIP imaging was also performed. PULMONARY ARTERIES: The pulmonary arteries and their major tributaries are patent. I do not see lakesha dence for sizable filling defect to suggest pulmonary embolic process. LUNGS: Areas of the patchy density at the lung bases as well as atelectatic tissue in the region of t he lingula and right middle lobe. Correlate for underlying pneumonia. No pulmonary nodule or mass is detected. No pleural effusion. MEDIASTINUM: Thoracic aorta is of normal caliber,however, evaluation is limited given timing of the contrast bolus. If there is concern for thoracic aortic pathology consider TIKA. Correlate clinicall y . The heart is not enlarged. No evidence for mediastinal mass. No mediastinal lymph nodes greater than 1cm. HILAR STRUCTURES: No evidence for mass. No hilar lymph nodes greater than 1 cm. UPPER ABDOMEN: No significant abnormality is seen. IMPRESSION: 1. No evidence for Pulmonary embolism at this time. 2.Areas of the patchy density at the lung bases as well as atelectatic tissue in the region of the li ngula and right middle lobe. Correlate for underlying pneumonia.
[2020-07-09] MEDS: DONEPEZIL 10 MG TAB PO SCH (20:09)
[2020-07-09] MEDS: ATORVASTATIN 20 MG TAB PO SCH (20:09)
[2020-07-09] MEDS: FINASTERIDE 5 MG TAB PO SCH (20:09)
[2020-07-09] MEDS: PRIMIDONE 50 MG TAB PO SCH (20:10)
[2020-07-10] MEDS: IPRATROPIUM-ALBUTEROL 3 ML NEB INHALATION SCH ×4 (00:01→11:23)
[2020-07-10] MEDS: TAMSULOSIN 0.4 MG CAP.ER.24H PO SCH (00:25)
[2020-07-10] MEDS: SODIUM CHLORIDE 0.9% 1,000 ML IV SCH (03:49)
[2020-07-10 06:07] VITALS: TEMP 98.2
[2020-07-10] MEDS: LEVOTHYROXINE 88 MCG TAB PO SCH (06:10)
[2020-07-10] MEDS: SYMBICORT 160-4.5 MCG INHALER INHALATION SCH (07:14)
[2020-07-10] MEDS: CARBIDOPA-LEVODOPA 25-100 MG 1 EACH TAB PO SCH (07:58)
[2020-07-10] MEDS: FERROUS SULFATE 325 MG TAB PO SCH (07:58)
[2020-07-10] MEDS: MULTIVITAMINS, THERA 1 EACH TAB PO SCH (07:58)
[2020-07-10] MEDS: POTASSIUM CHLORIDE ER 10 MEQ TAB.ER.PRT PO SCH (07:58)
[2020-07-10] MEDS: PANTOPRAZOLE 40 MG TABLET PO SCH (07:58)
[2020-07-10] MEDS: DOCUSATE 100 MG CAP PO SCH (07:58)
[2020-07-10] MEDS: GABAPENTIN 400 MG CAP PO SCH (07:58)
[2020-07-10] MEDS: SENNOSIDES 8.6 MG TAB PO SCH (07:58)
[2020-07-10] MEDS: polyethylene glycoL 3350 17 GM POWD.PACK PO SCH ×2 (07:59→08:02)
[2020-07-10 09:21] LABS: HCT 37.1 % (39.0-53.0); HGB 12.5 gm/dL (13.0-17.5); MCH 33.3 pg (25.0-35.0); MCHC 33.6 g/dL (31.0-37.0); Mean Platelet Volume 7.7; Platelet Count 125 k/uL (150-450); RBC 3.75 m/uL (4.30-5.90); RDW 13.6 % (11.5-15.5); WBC 8.6 k/uL (3.8-10.6)
[2020-07-10 09:34] VITALS: BP 143/83
[2020-07-10 09:40] LABS: African American GFR (CKD) 59 (>60 ml/min/1.73 sqM); Anion Gap 8 mmol/L; Blood Urea Nitrogen 32 mg/dL (9-20); Calcium 8.7 mg/dL (8.4-10.2); Carbon Dioxide 29 mmol/L (22-30); Chloride 104 mmol/L (98-107); Glucose 135 mg/dL (74-99); Non-African American GFR(CKD) 51 (>60 ml/min/1.73 sqM); Potassium 4.3 mmol/L (3.5-5.1); Sodium 141 mmol/L (137-145)
[2020-07-10 11:36] VITALS: PULSE 86; RESP 16
--- NOTE | 2020-07-10 11:39 | P.DS ---
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 Full workup was completed in the ED with chest x-ray positive for bilateral infiltrates suggestive of pneumonia along with possible lingular pneumonia. Influenza and Covid PCR is were negative. Troponin negative at < 0.012, d-dimer 0.68 and pro-BMP 184. WBC normal findings at 7.1 and lactate 1.9. EKG showing sinus tachycardia at 101 bpm with no noted T-wave or ST abnormalities. Patient admitted under our services and started on antibiotics of Levaquin, oral steroids, and scheduled DuoNeb treatments. Pulmonology was consulted. Computed tomography scan was c ompleted negative for pulmonary emboli positive for pneumonia. Blood cultures revealed no growth after 24 hours. Patient stable for discharge home at this time. He will continue with oral Levaquin for 5 more days totaling 7 days of antibiotic treatment and to follow up with Dr. David in his office next week. Patient given prescription to have lab work done outpatient in 5 days to monitor renal function. Physical exam: Patient seen and fully evaluated at the bedside this morning. Patient sitting up on side of bed appears to be doing well. He reports feeling much better. Patient reports he is finally able to cough up some clear sputum. He denies feeling short of breath at rest. Patient has been on room air throughout the night maintaining his oxygen saturations at 93% and above. Patient does have a baseline home oxygen use of 2 L nightly and as needed. Patient currently showing no signs of acute distress. He denies having any headache, lightheadedness, dizziness, chest pain, or palpitations. Vital signs reviewed and stable. Patient shows no signs of acute distress. General: non toxic, no distress, appears at stated age Derm: warm, dry Head: atraumatic, normocephalic, symmetric Eyes: EOMI, no lid lag, anicteric sclera Mouth: no lip lesion, mucus membranes moist Cardiovascular: S1S2 reg, no murmur, gallop, or rub. Positive posterior tibial pulses bilaterally. Cap refill less than 2 seconds. Lungs: Respirations even, regular, and unlabored on room air with SpO2 94% and no accessory muscle usage. Lungs with soft diffuse rhonchi bilaterally, no wheezes or crackles noted. Abdominal: Obese abdomen soft, nontender to palpation, no guarding, no appreciable organomegaly Ext: no gross muscle atrophy, trace nonpitting lower extremity edema, no contractures Neuro: CN II-XI grossly intact, no focal neuro deficits Psych: Alert, oriented, appropriate affect A total of 45 minutes of time were spent preparing this complex discharge summary. Patient Condition at Discharge: Fair Plan - Discharge Summary Discharge Rx Participant: No New Discharge Prescriptions: New Levofloxacin [Levaquin] 750 mg PO DAILY 5 Days #5 tab Continue rOPINIRole HCL [Requip] 0.5 mg PO TID@0800,1399,1999 Levothyroxine Sodium [Synthroid] 175 mcg PO DAILY Donepezil [Aricept] 10 mg PO HS Atorvastatin [Lipitor] 20 mg PO HS Multivitamin [Multivitamins Adult Gummies] 1 tab PO DAILY Furosemide [Lasix] 20 mg PO DAILY LORazepam [Ativan] 0.5 mg PO TID PRN PRN Reason: Anxiety Potassium Chloride ER [K-Dur 10] 10 meq PO DAILY Finasteride [Proscar] 5 mg PO HS HYDROcodone/APAP 10-325MG [[place] 10-325] 1 tab PO BID PRN PRN Reason: Pain Iron 18 mg PO DAILY Morphine+Unknown Medication Pain Pump 1 dose INTRATHECA CONTINUOUS Gabapentin [Neurontin] 400 mg PO TID@0800,1399,1999 Dexamethasone [Decadron] 2 mg PO Q72H Clotrimazole [place] [Mycelex [place]] 10 mg MUCOUS MEM 5XD PRN PRN Reason: MOUTH SORES Albuterol Inhaler [Ventolin Hfa Inhaler] 2 puff INHALATION RT-QID PRN PRN Reason: Shortness Of Breath Pantoprazole Sodium [Protonix] 40 mg PO DAILY Primidone [Mysoline] 50 mg PO HS Ipratropium-Albuterol Nebulize [Duoneb 0.5 mg-3 mg/3 ml Soln] 3 ml INHALATION RT-Q4H PRN PRN Reason: Shortness Of Breath Carbidopa-Levodopa 25-100 mg [Sinemet 25-100 mg] 1 tab PO TID@0800,1400,1999 guaiFENesin [Mucinex] 1,200 mg PO Q6H PRN PRN Reason: COUGH AND CONGESTION polyethylene glycoL 3350 [Miralax] 17 gm PO DAILY powd.pack Fluticasone/Vilanterol [Breo Ellipta 200-25 Mcg INH] 1 puff INHALATION RT- DAILY Tamsulosin HCl [Flomax] 0.4 mg PO HS Sennosides [Senna] 17.2 mg PO BID@799,1999 Docusate [Colace] 100 mg PO BID@0800,1400 Discharge Medication List Atorvastatin [Lipitor] 20 mg PO HS 06/30/16 [History] Donepezil [Aricept] 10 mg PO HS 06/30/16 [History] Levothyroxine Sodium [Synthroid] 175 mcg PO DAILY 06/30/16 [History] rOPINIRole HCL [Requip] 0.5 mg PO TID@0800,1400,199906/30/16 [History] Multivitamin [Multivitamins Adult Gummies] 1 tab PO DAILY 04/24/17 [History] Furosemide [Lasix] 20 mg PO DAILY 06/12/18 [History] LORazepam [Ativan] 0.5 mg PO TID PRN 06/12/18 [History] Potassium Chloride ER [K-Dur 10] 10 meq PO DAILY 06/12/18 [History] Finasteride [Proscar] 5 mg PO HS 07/31/18 [History] HYDROcodone/APAP 10-325MG [[place] 10-325] 1 tab PO BID PRN 09/01/18 [History] Iron 18 mg PO DAILY 04/07/19 [History] Morphine+Unknown Medication Pain Pump 1 dose INTRATHECA CONTINUOUS 06/17/19 [History] Gabapentin [Neurontin] 400 mg PO TID@0800,1400,199901/25/20 [History] Albuterol Inhaler [Ventolin Hfa Inhaler] 2 puff INHALATION RT-QID PRN 04/10/20 [History] Clotrimazole [place] [Mycelex [place]] 10 mg MUCOUS MEM 5XD PRN 04/10/20 [History] Dexamethasone [Decadron] 2 mg PO Q72H 04/10/20 [History] Pantoprazole Sodium [Protonix] 40 mg PO DAILY 04/10/20 [History] Carbidopa-Levodopa 25-100 mg [Sinemet 25-100 mg] 1 tab PO TID@0800,1400,199905/10/20 [History] Ipratropium-Albuterol Nebulize [Duoneb 0.5 mg-3 mg/3 ml Soln] 3 ml INHALATION RT-Q4H PRN 05/10/20 [History] Primidone [Mysoline] 50 mg PO HS 05/10/20 [History] guaiFENesin [Mucinex] 1,200 mg PO Q6H PRN 05/10/20 [History] polyethylene glycoL 3350 [Miralax] 17 gm PO DAILY powd.pack 05/12/20 [Rx] Docusate [Colace] 100 mg PO BID@0800,1400 07/08/20 [History] Fluticasone/Vilanterol [Breo Ellipta 200-25 Mcg INH] 1 puff INHALATION RT-DAILY 07/08/20 [History] Sennosides [Senna] 17.2 mg PO BID@0800,199907/08/20 [History] Tamsulosin HCl [Flomax] 0.4 mg PO HS 07/08/20 [History] Levofloxacin [Levaquin] 750 mg PO DAILY 5 Days #5 tab 07/10/20 [Rx] Follow up Appointment(s)/Referral(s): Sharmin Diaz MD [Family Provider] - 08/07/20 9:15 am [facility], [NON-STAFF] - As Needed Noble Elkins MD [Primary Care Provider] - 07/17/20 11:00 am Ambulatory/Diagnostic Orders: Basic Metabolic Panel [LAB.AMB] Time Frame: 5 Days, Location: None Selected Patient Instructions/Handouts: COPD (Chronic Obstructive Pulmonary Disease) (DC), Pneumonia (DC) Activity/Diet/Wound Care/Special Instructions: Activity: As tolerated, remember to take it slow and stop to rest as often as needed. Diet: Heart healthy diet Special Instructions: You are being discharged home with [facility] care services. You will continue your oral antibiotic, Levaquin, for 5 more days for a total of 7 days of antibiotics therapy. It is very important for you to follow-up as directed. You have an appointment with Dr. Elkins on 07/17/20 at 11:00 a.m. You also need to follow-up with Dr. Diaz's office next week to monitor your progress. You will will need to have your blood redrawn in 5 days to monitor your renal function. You can have this done at the hospitals outpatient lab or your primary care office. Discharge Disposition: HOME WITH HOME HEALTH SERVICES <Harrison Bowden - Last Filed: 07/10/20 16:09> Providers Date of admission: 07/08/20 19:04 Attending physician: Harrison Bowden MD Consults: 07/09/20 15:13 Consult Physician Routine Consulting Provider: Valente Jones Consult Reason/Comments: Patient admitted with CAP, has chronic COPD home o2 dependent Do you want consulting provider notified?: Yes Primary care physician: Noble Elkins MD Hospital Course: Patient seen and examined independently, patient was also seen by John Kohli and case was discussed. I'm in agreement with subjective, physical exam and assessment and plan above.
[2020-07-10] MEDS ORDERED: LEVOFLOXACIN 750 MG TAB PO SCH (21:00)
== END 2020-07-10 13:31 | disposition home health service (06) | DRG 194 ==
LOC: EC 15:44 → 1SOBS 19:04 → 4SSUR 07-09 17:57
PROVIDERS: ADMIT Internal Medicine; ATTEND Internal Medicine
DX: J18.9 Pneumonia, unspecified organism (principal); J44.0 Chronic obstructive pulmonary disease with (acute) lower respiratory infection; J44.1 Chronic obstructive pulmonary disease with (acute) exacerbation; E87.2 Acidosis; Z68.41 Body mass index [BMI] 40.0-44.9, adult; J96.11 Chronic respiratory failure with hypoxia; Z88.0 Allergy status to penicillin; E78.5 Hyperlipidemia, unspecified; Z20.822 Contact with and (suspected) exposure to COVID-19; M06.9 Rheumatoid arthritis, unspecified; Z87.891 Personal history of nicotine dependence; I10 Essential (primary) hypertension; E03.9 Hypothyroidism, unspecified; F02.80 Dementia in other diseases classified elsewhere, unspecified severity, without behavioral disturbance, psychotic disturbance, mood disturbance, and anxiety; G30.9 Alzheimer's disease, unspecified; G20 Parkinson's disease; Z82.49 Family history of ischemic heart disease and other diseases of the circulatory system; Z80.1 Family history of malignant neoplasm of trachea, bronchus and lung; D69.6 Thrombocytopenia, unspecified; N40.0 Benign prostatic hyperplasia without lower urinary tract symptoms; Z79.890 Hormone replacement therapy; Z99.81 Dependence on supplemental oxygen; G89.29 Other chronic pain; G25.81 Restless legs syndrome; H54.7 Unspecified visual loss; E66.9 Obesity, unspecified; F41.9 Anxiety disorder, unspecified; Z96.89 Presence of other specified functional implants
CPT/HCPCS: 36415; 71046; 71275; 80048; 80053; 82550; 83605; 83735; 83880; 84484; 85025; 85027; 85379; 85610; 85730; 87040; 87070; 87205; 87502; 87635; 93005; 94640; 96361; 96374; 99285